=== PATIENT | female | born 1985 | race African-American/Black ===

== ENCOUNTER 2024-12-30 08:52 | Inpatient (IN) | payer MEDICARE, MEDICAID, SELFPAY ==
--- OUTSIDE RECORDS SUMMARY | 2024-01-18 05:00 | XMS_ITS ---
Author Organization [facility] Address [address] [place] [address] [phone] Care Team Providers Care Carpenter Supervisor Name Role Phone Migration, Provider Unavailable Unavailable REASON FOR VISIT EMR-[facility] [place] Encounters Encounter Location Date Provider Diagnosis [facility] [address] [place] [address] [phone] 01/18/2024 Provider Migration Plan Of Treatment No Information Progress Notes * DAVI OROZCOHARRISONDOB: [birth year] (39 yo F)Acc No.[id number]:01/18/2024 Patient: HIMA CORTEZ :1985 A ge:38 Y S ex:Female Address:[address] [place] [address], [address] Subjective: * Chief Complaints: * E MR-Stone * Medical History: * Surgical History: * Hospitalization/Major Diagno stic Procedure: * Medications: Objective: * Vitals: * Physical Examination: Assessment: Plan: * Treatment: * Procedure Codes: * * Date:
[2024-12-30] VITALS (7 sets, daily range): BP systolic 154–184; BP diastolic 84–94; PULSE 67–98; RESP 12–20; TEMP 36.4–37; O2SAT 86–99; BMI 24.4; BMI 24.3
--- NOTE | 2024-12-30 | ECG_ITS ---
Test Reason : chest pain Blood Pressure : */* mmHG Vent. Rate : 68 BPM Atrial Rate : 68 BPM P-R Int : 208 ms QRS Dur : 86 ms QT Int : 480 ms P-R-T Axes : 16 -8 133 degrees QTcB Int : 510 ms Normal sinus rhythm ST & T wave abnormality, consider lateral ischemia Prolonged QT Abnormal ECG No previous ECGs available Referred By: Generic ED Physician Electronically Signed By: ROXANA RENTERIA MD
--- NOTE | ~2024-12-30 | XR_ITS ---
EXAMINATION: XR CHEST CLINICAL INFORMATION: sob/chest pain COMPARISON: None available. TECHNIQUE: Frontal view of the chest was obtained. FINDINGS: Moderate cardiomegaly. Mediastinal and hilar contours appear normal. The lungs are clear bilaterally. No pneumothorax or effusion. No focal osseous or soft tissue abnormality. There are surgical clips abutting the superior trachea. XR/XR chest 1V IMPRESSION: 1. Moderate cardiomegaly. 2. No active pulmonary disease. Electronically signed by: Faizan [facility] MD 12/30/2024 11:18 AM EDT
--- NOTE | 2024-12-30 09:46 | ED.GENADULT ---
HPI - General Adult General Chief complaint: General Medical Stated complaint: Needs dialysis Time Seen by Provider: 12/30/24 09:18 Source: patient Mode of arrival: ambulatory Limitations: no limitations History of Present Illness ED Provider: Roxi Alicea PA-C HPI narrative: 39-year-old female with history of end-stage renal disease due to eclampsia 11 years ago on HD T//Fri, history of multiple left upper extremity fistula revisions, history of pericardial effusion s/p drain, history of seizures, chronic hypoxic respiratory failure on 2.5 L nasal cannula, HTN, chronic pain on chronic opiates, who presents to the ER for evaluation of chest pain, shortness of breath and blacking out episodes that started overnight. she states she missed her dialysis on Friday due to left upper extremity pain. She did not think her fistula was going to work. She states that it infiltrated at her dialysis session on Friday. She reports pain in her central chest and shortness of Breath since overnight. She has been having episodes where she blacks out which are consistent with her seizures. She not take her Keppra today. She usually takes it after dialysis on dialysis days. She denies any fever or chills. Chest pain is constant and nonradiating in the parasternal region. she states she has had this pain several times before MD complaint: chest pain, miss dialysis Onset (ago): hour(s) Associated symptoms: chest pain, headaches, malaise, shortness of breath and weakness Treatments prior to arrival: none Related Data Home Medications ?Medication ?Instructions ?Recorded ?Confirmed carvedilol 25 mg tablet 25 mg PO BID 12/30/24 hydroxyzine HCl 10 mg tablet 10 - 20 mg PO anxiety 12/30/24 oxycodone 15 mg tablet PO 12/30/24 pantoprazole 40 mg tablet,delayed 40 mg PO DAILY@0630 12/30/24 release sildenafil (pulm.hypertension) 20 20 mg PO TID 12/30/24 mg tablet sodium zirconium cyclosilicate 10 10 g PO 3XW 12/30/24 gram oral powder packet (kelwa) valsartan 80 mg tablet 80 mg PO DAILY 12/30/24 Allergies Allergy/AdvReac Type Severity Reaction Status Date / Time ANNA Inhibitors Allergy Unknown Verified 12/30/24 09:10 adhesive tape Allergy Unknown Verified 12/30/24 09:10 amlodipine Allergy Unknown Verified 12/30/24 09:10 angiotensin II acetate, human Allergy Itching Verified 12/30/24 09:10 Beta-Blockers Allergy Itching Verified 12/30/24 09:10 (Beta-Adrenergic Bloc cinacalcet (From Sensipar) Allergy Unknown Verified 12/30/24 09:10 clonidine Allergy Anaphylaxis Verified 12/30/24 09:10 doxazosin Allergy Anaphylaxis Verified 12/30/24 09:10 epoetin michael-epbx (From Allergy Unknown Verified 12/30/24 09:10 Retacrit) epoetin beta Allergy Unknown Verified 12/30/24 09:10 furosemide Allergy Unknown Verified 12/30/24 09:10 gabapentin Allergy Anaphylaxis Verified 12/30/24 09:10 heparin Allergy Unknown Verified 12/30/24 09:10 hydralazine Allergy Anaphylaxis Verified 12/30/24 09:10 hydroxyzine Allergy Unknown Verified 12/30/24 09:10 ibuprofen (From Motrin) Allergy Unknown Verified 12/30/24 09:10 isosorbide Allergy Unknown Verified 12/30/24 09:10 labetalol Allergy Eye Verified 12/30/24 09:10 Swelling latex Allergy Itching Verified 12/30/24 09:10 levofloxacin Allergy Itching Verified 12/30/24 09:10 lisinopril Allergy Itching Verified 12/30/24 09:10 losartan Allergy Unknown Verified 12/30/24 09:10 methocarbamol Allergy Unknown Verified 12/30/24 09:10 metoprolol Allergy Unknown Verified 12/30/24 09:10 Penicillins Allergy Hives Verified 12/30/24 09:10 prednisone Allergy Unknown Verified 12/30/24 09:10 spironolactone Allergy Itching Verified 12/30/24 09:10 tramadol Allergy Unknown Verified 12/30/24 09:10 Review of Systems Review of Systems: Yes all other systems are reviewed and are negative PMFSH Social History Social History Smoked in Last 30 Days: No Use of substances other than those prescribed or required for medical reasons: No Advance Directives: No Advance Directives Information Provided: Yes Do you have a plan to hurt others: No Plan Patient : No Physical Exam ED Exam Exam: Appearance: Alert. Oriented X3. No acute distress. Head: normocephalic, atraumatic. Eyes: Pupils equal, round and reactive to light. ENT: Pharynx normal. No tonsillar swelling or exudate. Neck: Normal inspection. Neck supple. CVS: Normal heart rate and rhythm. Pulses normal. Respiratory: No respiratory distress. Breath sounds diminished at the bases bilaterally Abdomen: Soft and nontender. +BS x4 Skin: Skin warm and dry. Normal skin color. Normal skin turgor. No rashes. Extremities: No lower extremity edema. No joint swelling. left upper extremity with large fistula involving both upper and lower arm, palpable thrill in the proximal upper arm Neuro/psych: Oriented X 3. No motor deficit. No sensory deficit. CN II-XII intact. Normal speech and cognition. Vital Signs: Vital Signs - 24 hr 12/30/24 09:09 12/30/24 09:15 12/30/24 10:13 Temperature 97.6 F 97.6 F Pulse Rate 67 70 Respiratory Rate 20 12 Blood Pressure 171/94 H 154/88 H Pulse Oximetry 86 L 98 99 Oxygen Delivery Method Room Air Nasal Cannula Nasal Cannula Oxygen Flow Rate 2.5 3 12/30/24 10:47 12/30/24 12:40 Temperature 98.6 F Pulse Rate 68 Respiratory Rate 18 15 Blood Pressure 178/89 H Pulse Oximetry 98 Oxygen Delivery Method Nasal Cannula Oxygen Flow Rate 3 BMI result Body Mass Index 24.4 Course Reevaluation(s) Reevaluation #1: Evaluated patient at the bedside and she was found to be laughing uncontrollably with twitch around the left eye, she was not responding to her name, she was staring into space. Her mother was on the phone on speaker in saying this is a presentation she can have with her seizures. She did not take her Keppra today, she usually takes it after dialysis. This episode lasted approximately 60 seconds and then afterward patient was confused and talking about printers, Nonsensical speech. She is hemodynamically stable. IV Keppra ordered. Seizure precautions in place. Time: 10:46 Medications Administered Generic Name Dose Route Start Last Admin Trade Name Freq PRN Reason Stop Dose Admin Calcium Gluconate 2 gm in 100 mls @ 50 mls/hr 12/30/24 12:21 12/30/24 12:26 Calcium Gluconate IV 12/30/24 14:20 50 mls/hr ONCE ONE Administration Discontinued Medications Generic Name Dose Route Start Last Admin Trade Name Freq PRN Reason Stop Dose Admin Dextrose 25 gm 12/30/24 12:21 12/30/24 12:38 Dextrose 50 % 25 Gm/50 Ml Syringe IVPUSH 12/30/24 12:22 25 gm ONCE ONE Administration Hydromorphone HCl 1 mg 12/30/24 10:34 12/30/24 10:47 Hydromorphone Hcl 1 Mg/Ml Syringe IVPUSH 12/30/24 10:35 1 mg ONCE ONE Administration Protocol Hydromorphone HCl 1 mg 12/30/24 11:17 12/30/24 12:28 Hydromorphone Hcl 1 Mg/Ml Syringe IVPUSH 12/30/24 11:18 Not Given ONCE ONE Protocol Hydromorphone HCl 1 mg 12/30/24 12:21 12/30/24 12:27 Hydromorphone Hcl 1 Mg/Ml Syringe IVPUSH 12/30/24 12:22 1 mg ONCE ONE Administration Protocol Levetiracetam 500 mg in 100 mls @ 400 mls/hr 12/30/24 10:41 12/30/24 12:37 Keppra IV 12/30/24 10:55 Infused ONCE ONE Infusion Insulin Human Regular 5 unit 12/30/24 12:21 12/30/24 12:38 Insulin Regular, Human 100 Unit/Ml 10 Ml Vial IVPUSH 12/30/24 12:22 5 unit ONCE ONE Administration Levetiracetam 500 mg 12/30/24 11:49 12/30/24 11:55 Levetiracetam 500 Mg Tablet PO 12/30/24 11:50 500 mg ONCE ONE Administration Oxycodone HCl 15 mg 12/30/24 11:49 12/30/24 11:55 Oxycodone Hcl Immed Release 15 Mg Tablet PO 12/30/24 11:50 15 mg ONCE ONE Administration Procedures EJ/Peripheral Line Arm R: Time Out Performed: Yes Skin Cleansed in Sterile Fashion: Yes Size (gauge): 20 IV Secured and Dressing Applied: Yes Patient Tolerated Procedure: well and no complications Additional Comments: after multiple attempts Medical Decision Making Medical Decision Making MDM Narrative: 39-year-old female presents to the ER for evaluation after she has had shortness of breath, chest pain and blacking out episodes since last night. She missed dialysis on Friday. She is medically complex and has had recent hospitalizations at [facility] [place], [facility] for fistula revisions. Working on getting records now. She arrives to the ER hemodynamically stable. Her SpO2 was in the 80s on room air, she arrived on room air and was placed on her baseline 2.5 L nasal cannula with good effect. multiple attempts at IV access with difficulty. labs show acute hyperkalemia of 7.6 without any hemolysis. BUN is 107 and creatinine is 13.37. Troponin is reassuring at 16. There is no peaked T-waves or bradycardia on her EKG. IV was established and she was given 2 g of calcium, insulin, D50. Nephrology was consulted and is arranging dialysis today. Patient will be admitted to the hospital for further management Differential Diagnosis Differential Diagnoses: The differential diagnosis associated with the presentation includes acute hyperkalemia due to missed dialysis, seizures due to medication noncompliance, recurrent pericardial effusion, volume overload, hypertensive urgency Admission/Observation Consideration of admission/observation: Escalation of care including admission/observation considered Consult Healthcare Provider Management of the patient was discussed with: Hospitalist and Buffer Chrome Dr. Joe Childress Lab Data MDM Lab Attestation statement: I reviewed the patient's lab results. leukocytosis, anemia of chronic disease, baseline hemoglobin around 8 based on her last H&H. Acute hyperkalemia without hemolysis, elevated BUN and creatinine in the setting of end-stage renal disease missing dialysis 12/30/24 10:26 12/30/24 11:53 Labs: Lab Results 12/30/24 12/30/24 Range/Units 10:26 11:53 WBC 6.0 (4.8-10.8) X10*3/uL RBC 2.43 L (4.20-5.50) X10*6/uL Hgb 7.6 L (12.0-16.0) g/dl Hct 23.0 L (37.0-47.0) % MCV 94.7 (80.0-98.0) fL MCH 31.3 (27.0-33.0) pg MCHC 33.0 (31.0-35.0) g/dl RDW 15.2 (11.0-16.0) % Plt Count 119 L (160-400) X10*3/uL MPV 10.2 (9.4-12.3) fL Immature Gran % (Auto) 0.5 H (0.0-0.4) % Neut % (Auto) 78.2 H (45-73) % Lymph % (Auto) 8.8 L (20-40) % [place] % (Auto) 6.2 (2-11) % Eos % (Auto) 6.0 H (0-4) % Baso % (Auto) 0.3 (0-2) % Lymph # (Auto) 0.5 L (1.2-4.9) X10*3/uL [place] # (Auto) 0.4 (0.1-1.2) X10*3/uL Eos # (Auto) 0.4 (0.0-0.4) X10*3/uL Baso # (Auto) 0.0 (0.0-0.2) X10*3/uL Abs Immat Gran (auto) 0.03 (0.00-0.03) X10*3/uL Absolute Neuts (auto) 4.7 (2.0-8.3) x10*3/uL Absolute Nucleated RBC 0.000 (0.0-0.012) X10*3/uL Nucleated RBC % (auto) 0.0 (0.0-0.2) /100WBC Sodium 138 (135-145) mmol/L Potassium 7.6 H* (3.3-5.1) mmol/L Chloride 101 (96-108) mmol/L Carbon Dioxide 20 L (22-29) mmol/L Anion Gap 25 H (12-20) BUN 107 H (9-16) mg/dL Creatinine 13.37 H* (0.5-1.4) mg/dL Estim Creat Clear Calc 5.1 Estimated GFR 3 Random Glucose 102 (60-115) mg/dL Calcium 6.3 L (8.4-10.2) mg/dL Phosphorus 9.1 H (2.7-4.5) mg/dL Magnesium 2.5 (1.6-2.6) mg/dL Total Bilirubin 0.5 (0.0-1.0) mg/dL AST 28 (5-31) U/L ALT 28 (0-31) U/L Alkaline Phosphatase 129 H (39-117) U/L Troponin I High Sens 16.8 (<3.5-17.0) ng/L B-Natriuretic Peptide 3706 H (<100) pg/mL Total Protein 7.2 (6.5-8.0) g/dL Albumin 4.2 (3.5-5.0) g/dL Independent Interpretation I performed an independent interpretation of an: EKG and Plain X-Ray Interpretation: EKG with normal sinus rhythm, ventricular rate 68 beats per minute, Q-waves present in lead III, mild ST depression/ T-wave inversion in lead 1 only. No significantly peaked T-waves chest x-ray with cardiomegaly Radiology Impression Discussion of test interpretation with radiology: I have reviewed the radiologist's reading. Independent Historian Clinical information obtained from an independent historian. History obtained from or confirmed by: Parent External Record Review External record reviewed: Inpatient record, Outpatient record, Prior outpatient labs and Prior outpatient radiology Prescription Management I considered prescription management with: Pain Medication and Other ( calcium, D50, Lokelma) Chronic Conditions Patient?s care impacted by: Hypertension and Other ( ESRD, chronic pain) Social Determinants Patient?s care significantly limited by Social Determinants of Health including: Other Social Determinant of Health Critical Care Time Critical Care Time Critical Care Time: Yes Total Critical Care Time: 44 Attestation: I have personally provided critical care time exclusive of time spent on separately billable procedures. Time includes review of lab data, radiology results, discussion with consultants, and monitoring for potential decompensation. Intervention performed as documented. Discharge Plan Discharge Clinical Impression: ESRD (end stage renal disease) on dialysis, Acute hyperkalemia Patient Disposition: Admitted As Inpatient
--- NOTE | 2024-12-30 10:08 | MHC.EDTECH ---
delay on EKG do to EKG machine in use nurse aware
--- NOTE | 2024-12-30 10:22 | PC.NURSE ---
39 F comes to ED d/t missing dialysis on friday, [place] A+Ox4, very weak, stand and pivot ambulation wheelchair to bed. RR even and unlabored, on 3L NC d/t desat in triage in 80s on RA. Pt sts she uses 2.5L NC at baseline. CAMPUS DIRECTOR at bedside working on US line.
[2024-12-30 10:30] LABS: MANUAL DIFF FLAG NO
[2024-12-30 10:32] LABS: Hematocrit 23.0 % (37.0-47.0); Hemoglobin 7.6 g/dl (12.0-16.0); Imm Gran Abs Auto 0.03 X10*3/uL (0.00-0.03); Imm Gran Pct Auto 0.5 % (0.0-0.4); Lymphocytes Absolute Auto 0.5 X10*3/uL (1.2-4.9); Mean Corpuscular HGB Conc 33.0 g/dl (31.0-35.0); Mean Corpuscular Hemoglobin 31.3 pg (27.0-33.0); Mean Corpuscular Volume 94.7 fL (80.0-98.0); NRBC Abs Auto 0.000 X10*3/uL (0.0-0.012); NRBC Pct Auto 0.0 /100WBC (0.0-0.2); Platelet Count 119 X10*3/uL (160-400); Red Blood Count 2.43 X10*6/uL (4.20-5.50); White Blood Count 6.0 X10*3/uL (4.8-10.8)
[2024-12-30] MEDS: levETIRAcetam in NaCl (iso-os) 500 MG/100 ML PIGGYBACK 400 MG IV (10:47)
[2024-12-30 10:52] LABS: B Type Natriuretic Peptide 3706 pg/mL (<100)
[2024-12-30 10:55] LABS: Troponin-I High Sensitivity 16.8 ng/L (<3.5-17.0)
--- NOTE | 2024-12-30 11:29 | PC.NURSE ---
Addendum entered by Lianna Johnson RN 12/30/24 12:34: Patient did NOT recieve any IV Keppra, provider ordered PO, did not want IV Keppra restarted once IV access was established Original Note: Assumed care of this patient at 1100, patient's keppra not running, previous RN Froylan stated IV placement was difficult, provider and [employer] needed for access, IV found not to flush through or draw back, [employer] not available at this time, provider Natalia made aware, will assess patient for an new IV site, patient aware IV not working, additional nephro provider at bedside to speak w/ patient at this time.
--- NOTE | 2024-12-30 11:48 | PM.CNNEP ---
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 She presented today 12/30 to the ED with chest pain, shortness of breath, and blacking out episodes that started overnight. Pateint had a seizure this a.m., per ED provider she was confused earlier in postictal state but now improving. Nephrology consulted for management of ESRD on HD. patient reports last HD session was on Friday, 12/26. Missed Friday session, reports has swelling and pain in fistula so did not go but has improved since then. reports she is on transplant list, has been for a year or two at transplant center in [place]. She reports some shortness of breath. Reports ongoing pain in old fistula site in left lower extremity (currently has left upper extremity fistula being used for dialysis). Denies other symptoms at this time. Review of Systems Constitutional: Reports no additional constitutional complaints Cardiovascular: Denies chest pain, Denies leg edema, Denies lightheadedness and Reports dyspnea Respiratory: Reports dyspnea Gastrointestinal: Denies abdominal pain, Denies diarrhea, Denies nausea and Denies vomiting Genitourinary: Reports no additional female genitourinary complaints Skin/Breast: Denies rash Denies tremor(s) Comments: reported recent seizure activity ON LICENSE OF [facility] Social History Social History Patient Tobacco Use Status: Never used Tobacco Smoked in Last 30 Days: No Use of substances other than those prescribed or required for medical reasons: No Advance Directives: No Advance Directives Information Provided: Yes Do you have a plan to hurt others: No Plan Nutrition Risks: No Nutritional Risk Patient : No Meds Allergies Allergy/AdvReac Type Severity Reaction Status Date / Time ANNA Inhibitors Allergy Unknown Verified 12/30/24 09:10 adhesive tape Allergy Unknown Verified 12/30/24 09:10 amlodipine Allergy Unknown Verified 12/30/24 09:10 angiotensin II acetate, human Allergy Itching Verified 12/30/24 09:10 Beta-Blockers Allergy Itching Verified 12/30/24 09:10 (Beta-Adrenergic Bloc cinacalcet (From Sensipar) Allergy Unknown Verified 12/30/24 09:10 clonidine Allergy Anaphylaxis Verified 12/30/24 09:10 doxazosin Allergy Anaphylaxis Verified 12/30/24 09:10 epoetin michael-epbx (From Allergy Unknown Verified 12/30/24 09:10 Retacrit) epoetin beta Allergy Unknown Verified 12/30/24 09:10 furosemide Allergy Unknown Verified 12/30/24 09:10 gabapentin Allergy Anaphylaxis Verified 12/30/24 09:10 heparin Allergy Unknown Verified 12/30/24 09:10 hydralazine Allergy Anaphylaxis Verified 12/30/24 09:10 hydroxyzine Allergy Unknown Verified 12/30/24 09:10 ibuprofen (From Motrin) Allergy Unknown Verified 12/30/24 09:10 isosorbide Allergy Unknown Verified 12/30/24 09:10 labetalol Allergy Eye Verified 12/30/24 09:10 Swelling latex Allergy Itching Verified 12/30/24 09:10 levofloxacin Allergy Itching Verified 12/30/24 09:10 lisinopril Allergy Itching Verified 12/30/24 09:10 losartan Allergy Unknown Verified 12/30/24 09:10 methocarbamol Allergy Unknown Verified 12/30/24 09:10 metoprolol Allergy Unknown Verified 12/30/24 09:10 Penicillins Allergy Hives Verified 12/30/24 09:10 prednisone Allergy Unknown Verified 12/30/24 09:10 spironolactone Allergy Itching Verified 12/30/24 09:10 tramadol Allergy Unknown Verified 12/30/24 09:10 Home Medications ?Medication ?Instructions ?Recorded ?Confirmed ?Last Taken ?Type carvedilol 25 mg tablet 25 mg PO BID 12/30/24 Unknown History hydroxyzine HCl 10 mg tablet 10 - 20 mg PO anxiety 12/30/24 Unknown History oxycodone 15 mg tablet PO 12/30/24 Unknown History pantoprazole 40 mg tablet,delayed 40 mg PO DAILY@0630 12/30/24 Unknown History release sildenafil (pulm.hypertension) 20 20 mg PO TID 12/30/24 Unknown History mg tablet sodium zirconium cyclosilicate 10 10 g PO 3XW 12/30/24 Unknown History gram oral powder packet (Lokelma) valsartan 80 mg tablet 80 mg PO DAILY 12/30/24 Unknown History Physical Exam Vital Signs: Last Vital Signs Temp 97.6 F 12/30/24 10:13 Pulse 70 12/30/24 10:13 Resp 18 12/30/24 10:47 BP 154/88 H 12/30/24 10:13 Pulse Ox 99 12/30/24 10:13 O2 Del Method Nasal Cannula 12/30/24 10:13 O2 Flow Rate 3 12/30/24 10:13 BMI result Body Mass Index 24.4 Const General: no acute distress, alert and awake Resp Effort & Inspection: normal respiratory effort and able to speak in complete sentences Auscultation: clear to auscultation bilaterally Cardio Rate: regular rate Rhythm: abnormal rhythm Heart sounds: S1 normal heart sound present and S2 normal heart sound present GI Palpation (GI): Soft to palpation and nontender Skin Rashes: no rashes Extrem General: No edema Results Lab Results 12/30/24 10:26 12/30/24 11:53 Lab results: Hematology 12/30/24 10:26 WBC 6.0 Hgb 7.6 L Plt Count 119 L Assessment and Plan (1) ESRD (end stage renal disease) on dialysis: Status: Acute Plan ESRD on HD TTS, last dialyzed 12/26, missed x1 session. LUE fistula- +thrill, bruit. consult placed to vascular for malfunctioning fistula in lower arm. will remove fluid to dry weight today, patient states dry weight is 68kg H&H is 7.6 & 23- pt has listed allergy to retacrit, will hold off on epo for now. potassium 7.6- insulin &d50, calcium gluconate administered per ED provider. Will start dialysis with 3K bath today. Phosphorous 9.1- will see what post HD phosphorous is tomorrow as pt does not appear to be on outpatient binders. Recommend low potassium, low sodium, low phosphorous diet. Fluid restriction 1.5L/24hours daily electrolyte and renal function studies regualr blood pressure checks, daily weights, I&O monitoring Discussed with Dr Diaz. Procedures Date of Service Date of Service: 12/30/24
--- OUTSIDE RECORDS SUMMARY | 2024-12-30 11:52 | XMS_ITS ---
Author Name [facility] Organization Unknown Results Test Name/Text Value Interpretation Date Range Source Phosphate SerPl-mCnc 5.1 mg/dL Above high normal 5 2.2 - 4.5 [facility] Magnesium SerPl-mCnc 2.0 mg/dL 5 1.7 - 2.4 [facility] BUN/Creat SerPl 4.4 Below low normal 10/24/19 2 5 8 - 23 [facility] Chloride SerPl-sCnc 97.0 mmol/L Below low normal 10/01 5 98 - 107 [facility] CREATININE [place] 5 [facility] Sodium SerPl-sCnc 135.0 mmol/L Below low normal 5 136 - 144 [facility] Potassium SerPl-sCnc 5.1 mmol/L 5 3.3 - 5.3 [facility] BUN SerPl-mCnc 33.0 mg/dL Above high normal 10/24/19 2 5 6 - 20 [facility] HCO3 SerPl-sCnc 24.0 mmol/L 5 20 - 30 [facility] Glucose SerPl-mCnc 125.0 mg/dL Above high normal 10/01 5 70 - 100 [facility] GFR/BSA.pred SerPlBld [id number] 7.0 mL/min/1.73m2 Below low normal 5 - [facility] Calcium SerPl-mCnc 7.8 mg/dL Below low normal 10/23 5 8.8 - 10.2 [facility] Anion Gap3 SerPl-sCnc 14.0 5 7 - 17 [facility] Creat SerPl-mCnc 7.57 mg/dL Above high normal 5 0.4 - 1.3 [facility] nRBC/100 WBC Bld Auto-Rto 0.0 % 5 0 - 1 [facility] Neutrophils/leuk NFr Bld Auto 73.5 % Above high normal 5 39 - 72 [facility] MCH RBC Qn Auto 31.4 pg 5 27 - 33 [facility] MCHC RBC Auto-mCnc 31.8 g/dL 5 31 - 36 [facility] Neutrophils # Bld Auto 4.03 x 1000/uL 5 2 - 7.6 [facility] RDW RBC Auto-Rto 16.9 % Above high normal 5 11 - 15 [facility] Monocytes # Bld Auto 0.37 x 1000/uL 5 0 - 1 [facility] Monocytes/leuk NFr Bld Auto 6.8 % 5 4 - 12 [facility] Eosinophil # Bld Auto 0.47 x 1000/uL 5 0 - 1 [facility] Lymphocytes/leuk NFr Bld Auto 10.0 % Below low normal 5 17 - 50 [facility] WBC # Bld Auto 5.5 x1000/uL 5 4 - 11 [facility] Basophils # Bld Auto 0.05 x 1000/uL 5 0 - 1 [facility] Basophils/leuk NFr Bld Auto 0.9 % 5 0 - 1.4 [facility] nRBC # Bld Auto 0.0 x 1000/uL 5 0 - 1 [facility] RBC # Bld Auto 2.23 M/uL Below low normal 5 4 - 6 [facility] Hgb Bld-mCnc 7.0 g/dL Below low normal 5 11.7 - 15.5 [facility] Imm Granulocytes/leuk NFr Bld Auto 0.2 % 5 0 - 1 [facility] Hct VFr Bld Auto 22.0 % Below low normal 02 5 35 - 45 [facility] Eosinophil/leuk NFr Bld Auto 8.6 % Above high normal 5 0 - 5 [facility] PMV Bld Auto 10.3 fL 5 8 - 12 [facility] Imm Granulocytes # Bld Auto 0.01 x 1000/uL 5 0 - 0.3 [facility] Platelet # Bld Auto 142.0 x1000/uL Below low normal 5 150 - 420 [facility] MCV RBC Auto 98.7 fL 5 80 - 100 [facility] Lymphocytes # Bld Auto 0.55 x 1000/uL Below low normal 5 0.6 - 3.7 [facility] Creat SerPl-mCnc 5.39 mg/dL Above high normal 5 0.4 - 1.3 [facility] Sodium SerPl-sCnc 134.0 mmol/L Below low normal 5 136 - 144 [facility] BUN/Creat SerPl 3.3 Below low normal 10/23/19 2 5 8 - 23 [facility] Potassium SerPl-sCnc 4.5 mmol/L 5 3.3 - 5.3 [facility] Glucose SerPl-mCnc 110.0 mg/dL Above high normal 10/01 5 70 - 100 [facility] HCO3 SerPl-sCnc 26.0 mmol/L 5 20 - 30 [facility] Calcium SerPl-mCnc 7.9 mg/dL Below low normal 10/22 5 8.8 - 10.2 [facility] Anion Gap3 SerPl-sCnc 13.0 5 7 - 17 [facility] Chloride SerPl-sCnc 95.0 mmol/L Below low normal 10/01 5 98 - 107 [facility] BUN SerPl-mCnc 18.0 mg/dL 5 6 - 20 [facility] CREATININE [place] 5 [facility] GFR/BSA.pred SerPlBld [id number] 10.0 mL/min/1.73m2 Below low normal 5 - [facility] Magnesium SerPl-mCnc 2.0 mg/dL 5 1.7 - 2.4 [facility] Phosphate SerPl-mCnc 3.9 mg/dL 5 2.2 - 4.5 [facility] nRBC # Bld Auto 0.0 x 1000/uL 5 0 - 1 [facility] nRBC/100 WBC Bld Auto-Rto 0.0 % 5 0 - 1 [facility] Imm Granulocytes # Bld Auto 0.02 x 1000/uL 5 0 - 0.3 [facility] Lymphocytes # Bld Auto 0.68 x 1000/uL 5 0.6 - 3.7 [facility] Imm Granulocytes/leuk NFr Bld Auto 0.4 % 5 0 - 1 [facility] Eosinophil/leuk NFr Bld Auto 9.6 % Above high normal 5 0 - 5 [facility] WBC # Bld Auto 5.1 x1000/uL 5 4 - 11 [facility] Hct VFr Bld Auto 22.2 % Below low normal 02 5 35 - 45 [facility] Basophils # Bld Auto 0.04 x 1000/uL 5 0 - 1 [facility] Monocytes # Bld Auto 0.38 x 1000/uL 5 0 - 1 [facility] RDW RBC Auto-Rto 16.5 % Above high normal 5 11 - 15 [facility] PMV Bld Auto 10.4 fL 5 8 - 12 [facility] Lymphocytes/leuk NFr Bld Auto 13.4 % Below low normal 5 17 - 50 [facility] Eosinophil # Bld Auto 0.49 x 1000/uL 5 0 - 1 [facility] Hgb Bld-mCnc 7.1 g/dL Below low normal 5 11.7 - 15.5 [facility] MCHC RBC Auto-mCnc 32.0 g/dL 5 31 - 36 [facility] Platelet # Bld Auto 129.0 x1000/uL Below low normal 5 150 - 420 [facility] Basophils/leuk NFr Bld Auto 0.8 % 5 0 - 1.4 [facility] MCV RBC Auto 100.5 fL Above high normal 5 80 - 100 [facility] RBC # Bld Auto 2.21 M/uL Below low normal 5 4 - 6 [facility] Monocytes/leuk NFr Bld Auto 7.5 % 5 4 - 12 [facility] Neutrophils/leuk NFr Bld Auto 68.3 % 5 39 - 72 [facility] MCH RBC Qn Auto 32.1 pg 5 27 - 33 [facility] Neutrophils # Bld Auto 3.47 x 1000/uL 5 2 - 7.6 [facility] MCHC RBC Auto-mCnc 32.3 g/dL 5 31 - 36 [facility] Monocytes # Bld Auto 0.38 x 1000/uL 5 0 - 1 [facility] MCH RBC Qn Auto 32.0 pg 5 27 - 33 [facility] PMV Bld Auto 10.5 fL 5 8 - 12 [facility] nRBC/100 WBC Bld Auto-Rto 0.0 % 5 0 - 1 [facility] MCV RBC Auto 99.1 fL 5 80 - 100 [facility] nRBC # Bld Auto 0.0 x 1000/uL 5 0 - 1 [facility] Basophils # Bld Auto 0.05 x 1000/uL 5 0 - 1 [facility] Lymphocytes/leuk NFr Bld Auto 11.1 % Below low normal 5 17 - 50 [facility] Platelet # Bld Auto 140.0 x1000/uL Below low normal 5 150 - 420 [facility] RBC # Bld Auto 2.22 M/uL Below low normal 5 4 - 6 [facility] Lymphocytes # Bld Auto 0.64 x 1000/uL 5 0.6 - 3.7 [facility] Monocytes/leuk NFr Bld Auto 6.6 % 5 4 - 12 [facility] Hct VFr Bld Auto 22.0 % Below low normal 02 5 35 - 45 [facility] Eosinophil/leuk NFr Bld Auto 9.2 % Above high normal 5 0 - 5 [facility] RDW RBC Auto-Rto 16.8 % Above high normal 5 11 - 15 [facility] Neutrophils # Bld Auto 4.16 x 1000/uL 5 2 - 7.6 [facility] WBC # Bld Auto 5.8 x1000/uL 5 4 - 11 [facility] Basophils/leuk NFr Bld Auto 0.9 % 5 0 - 1.4 [facility] Eosinophil # Bld Auto 0.53 x 1000/uL 5 0 - 1 [facility] Imm Granulocytes # Bld Auto 0.02 x 1000/uL 5 0 - 0.3 [facility] Hgb Bld-mCnc 7.1 g/dL Below low normal 5 11.7 - 15.5 [facility] Imm Granulocytes/leuk NFr Bld Auto 0.3 % 5 0 - 1 [facility] Neutrophils/leuk NFr Bld Auto 71.9 % 5 39 - 72 [facility] B[facility] CREATININE [place] 5 [facility] Glucose SerPl-mCnc 143.0 mg/dL Above high normal 10/01 5 70 - 100 [facility] GFR/BSA.pred SerPlBld [id number]-[id number]-[id number] 6.0 mL/min/1.73m2 Below low normal 5 - [facility] Sodium SerPl-sCnc 135.0 mmol/L Below low normal 5 136 - 144 [facility] Anion Gap3 SerPl-sCnc 17.0 5 7 - 17 [facility] BUN/Creat SerPl 4.3 Below low normal 10/22/19 2 5 8 - 23 [facility] Creat SerPl-mCnc 8.15 mg/dL Above high normal 5 0.4 - 1.3 [facility] Potassium SerPl-sCnc 4.4 mmol/L 5 3.3 - 5.3 [facility] HCO3 SerPl-sCnc 24.0 mmol/L 5 20 - 30 [facility] Calcium SerPl-mCnc 8.0 mg/dL Below low normal 10/21 5 8.8 - 10.2 [facility] Chloride SerPl-sCnc 94.0 mmol/L Below low normal 10/01 5 98 - 107 [facility] BUN SerPl-mCnc 35.0 mg/dL Above high normal 10/22/19 2 5 6 - 20 [facility] Phosphate SerPl-mCnc 4.7 mg/dL Above high normal 5 2.2 - 4.5 [facility] Magnesium SerPl-mCnc 2.1 mg/dL 5 1.7 - 2.4 [facility] Magnesium SerPl-mCnc 2.1 mg/dL 5 1.7 - 2.4 [facility] HCO3 SerPl-sCnc 24.0 mmol/L 5 20 - 30 [facility] Creat SerPl-mCnc 6.11 mg/dL Above high normal 5 0.4 - 1.3 [facility] Chloride SerPl-sCnc 94.0 mmol/L Below low normal 10/01 5 98 - 107 [facility] BUN/Creat SerPl 4.1 Below low normal 10/21/19 2 5 8 - 23 [facility] Anion Gap3 SerPl-sCnc 15.0 5 7 - 17 [facility] Glucose SerPl-mCnc 91.0 mg/dL 5 70 - 100 [facility] Potassium SerPl-sCnc 4.6 mmol/L 5 3.3 - 5.3 [facility] CREATININE [place] 5 [facility] GFR/BSA.pred SerPlBld EWU-[id number]-KfLAng 8.0 mL/min/1.73m2 Below low normal 5 - [facility] BUN SerPl-mCnc 25.0 mg/dL Above high normal 10/21/19 2 5 6 - 20 [facility] Calcium SerPl-mCnc 8.0 mg/dL Below low normal 10/20 5 8.8 - 10.2 [facility] Sodium SerPl-sCnc 133.0 mmol/L Below low normal 5 136 - 144 [facility] Phosphate SerPl-mCnc 4.2 mg/dL 5 2.2 - 4.5 [facility] PMV Bld Auto 10.4 fL 5 8 - 12 [facility] Lymphocytes # Bld Auto 0.89 x 1000/uL 5 0.6 - 3.7 [facility] nRBC/100 WBC Bld Auto-Rto 0.0 % 5 0 - 1 [facility] Platelet # Bld Auto 152.0 x1000/uL 5 150 - 420 [facility] MCH RBC Qn Auto 31.0 pg 5 27 - 33 [facility] MCV RBC Auto 98.7 fL 5 80 - 100 [facility] Eosinophil/leuk NFr Bld Auto 9.1 % Above high normal 5 0 - 5 [facility] Hct VFr Bld Auto 22.6 % Below low normal 02 5 35 - 45 [facility] Basophils # Bld Auto 0.06 x 1000/uL 5 0 - 1 [facility] Eosinophil # Bld Auto 0.59 x 1000/uL 5 0 - 1 [facility] Monocytes # Bld Auto 0.46 x 1000/uL 5 0 - 1 [facility] Basophils/leuk NFr Bld Auto 0.9 % 5 0 - 1.4 [facility] Neutrophils # Bld Auto 4.42 x 1000/uL 5 2 - 7.6 [facility] RBC # Bld Auto 2.29 M/uL Below low normal 5 4 - 6 [facility] nRBC # Bld Auto 0.0 x 1000/uL 5 0 - 1 [facility] MCHC RBC Auto-mCnc 31.4 g/dL 5 31 - 36 [facility] Lymphocytes/leuk NFr Bld Auto 13.8 % Below low normal 5 17 - 50 [facility] RDW RBC Auto-Rto 15.9 % Above high normal 5 11 - 15 [facility] Neutrophils/leuk NFr Bld Auto 68.6 % 5 39 - 72 [facility] Hgb Bld-mCnc 7.1 g/dL Below low normal 5 11.7 - 15.5 [facility] Imm Granulocytes/leuk NFr Bld Auto 0.5 % 5 0 - 1 [facility] WBC # Bld Auto 6.5 x1000/uL 5 4 - 11 [facility] Monocytes/leuk NFr Bld Auto 7.1 % 5 4 - 12 [facility] Imm Granulocytes # Bld Auto 0.03 x 1000/uL 5 0 - 0.3 [facility] Magnesium SerPl-mCnc 2.1 mg/dL 5 1.7 - 2.4 [facility] Calcium SerPl-mCnc 8.1 mg/dL Below low normal 10/19 5 8.8 - 10.2 [facility] Chloride SerPl-sCnc 95.0 mmol/L Below low normal 10/01 5 98 - 107 [facility] Glucose SerPl-mCnc 87.0 mg/dL 5 70 - 100 [facility] Anion Gap3 SerPl-sCnc 17.0 5 7 - 17 [facility] Potassium SerPl-sCnc 4.6 mmol/L 5 3.3 - 5.3 [facility] HCO3 SerPl-sCnc 22.0 mmol/L 5 20 - 30 [facility] CREATININE [place] 5 [facility] Creat SerPl-mCnc 7.8 mg/dL Above high normal 5 0.4 - 1.3 [facility] BUN/Creat SerPl 4.4 Below low normal 10/20/19 2 5 8 - 23 [facility] GFR/BSA.pred SerPlBld PLF-AFT-CiFFlf 6.0 mL/min/1.73m2 Below low normal 5 - [facility] BUN SerPl-mCnc 34.0 mg/dL Above high normal 10/20/19 2 5 6 - 20 [facility] Sodium SerPl-sCnc 134.0 mmol/L Below low normal 5 136 - 144 [facility] Phosphate SerPl-mCnc 5.1 mg/dL Above high normal 5 2.2 - 4.5 [facility] PMV Bld Auto 10.5 fL 5 8 - 12 [facility] Eosinophil/leuk NFr Bld Auto 8.7 % Above high normal 5 0 - 5 [facility] nRBC/100 WBC Bld Auto-Rto 0.0 % 5 0 - 1 [facility] Hct VFr Bld Auto 23.1 % Below low normal 02 5 35 - 45 [facility] Monocytes # Bld Auto 0.39 x 1000/uL 5 0 - 1 [facility] Hgb Bld-mCnc 7.1 g/dL Below low normal 5 11.7 - 15.5 [facility] Lymphocytes # Bld Auto 0.74 x 1000/uL 5 0.6 - 3.7 [facility] Neutrophils # Bld Auto 4.88 x 1000/uL 5 2 - 7.6 [facility] RBC # Bld Auto 2.34 M/uL Below low normal 5 4 - 6 [facility] Eosinophil # Bld Auto 0.58 x 1000/uL 5 0 - 1 [facility] MCHC RBC Auto-mCnc 30.7 g/dL Below low normal 10/19 5 31 - 36 [facility] Platelet # Bld Auto 143.0 x1000/uL Below low normal 5 150 - 420 [facility] Monocytes/leuk NFr Bld Auto 5.8 % 5 4 - 12 [facility] Neutrophils/leuk NFr Bld Auto 73.2 % Above high normal 5 39 - 72 [facility] Imm Granulocytes/leuk NFr Bld Auto 0.3 % 5 0 - 1 [facility] WBC # Bld Auto 6.7 x1000/uL 5 4 - 11 [facility] Basophils # Bld Auto 0.06 x 1000/uL 5 0 - 1 [facility] MCH RBC Qn Auto 30.3 pg 5 27 - 33 [facility] Imm Granulocytes # Bld Auto 0.02 x 1000/uL 5 0 - 0.3 [facility] MCV RBC Auto 98.7 fL 5 80 - 100 [facility] Basophils/leuk NFr Bld Auto 0.9 % 5 0 - 1.4 [facility] Lymphocytes/leuk NFr Bld Auto 11.1 % Below low normal 5 17 - 50 [facility] RDW RBC Auto-Rto 15.9 % Above high normal 5 11 - 15 [facility] nRBC # Bld Auto 0.0 x 1000/uL 5 0 - 1 [facility] ANTIBODY SCREEN NEG 10/19/19 2 5 [facility] ABO GROUPING O 5 [facility] SPECIMEN EXPIRATION DATE AND TIME 10/21/2024 23:59 5 [facility] RH TYPE POS 5 [facility] CK SerPl-cCnc 117.0 U/L 5 26 - 192 [facility] Magnesium SerPl-mCnc 2.4 mg/dL 5 1.7 - 2.4 [facility] Phosphate SerPl-mCnc 6.3 mg/dL Above high normal 5 2.2 - 4.5 [facility] BUN/Creat SerPl 5.8 Below low normal 10/19/19 2 5 8 - 23 [facility] Creat SerPl-mCnc 11.19 mg/dL Above high normal 5 0.4 - 1.3 [facility] GFR/BSA.pred SerPlBld BTX-PHW-OxOPik 4.0 mL/min/1.73m2 Below low normal 5 - [facility] Sodium SerPl-sCnc 137.0 mmol/L 5 136 - 144 [facility] Anion Gap3 SerPl-sCnc 22.0 Above high normal 5 7 - 17 [facility] BUN SerPl-mCnc 65.0 mg/dL Above high normal 10/19/19 2 5 6 - 20 [facility] B[facility] CREATININE [place] 5 [facility] Calcium SerPl-mCnc 7.0 mg/dL Below low normal 10/18 5 8.8 - 10.2 [facility] Potassium SerPl-sCnc 5.5 mmol/L Above high normal 5 3.3 - 5.3 [facility] Glucose SerPl-mCnc 129.0 mg/dL Above high normal 09/30 5 70 - 100 [facility] Chloride SerPl-sCnc 95.0 mmol/L Below low normal 09/30 5 98 - 107 [facility] HCO3 SerPl-sCnc 20.0 mmol/L 5 20 - 30 [facility] MCH RBC Qn Auto 30.9 pg 5 27 - 33 [facility] MCHC RBC Auto-mCnc 31.8 g/dL 5 31 - 36 [facility] Neutrophils # Bld Auto 7.11 x 1000/uL 5 2 - 7.6 [facility] Eosinophil # Bld Auto 0.53 x 1000/uL 5 0 - 1 [facility] Basophils/leuk NFr Bld Auto 0.8 % 5 0 - 1.4 [facility] Monocytes/leuk NFr Bld Auto 4.7 % 5 4 - 12 [facility] Platelet # Bld Auto 151.0 x1000/uL 5 150 - 420 [facility] RBC # Bld Auto 2.23 M/uL Below low normal 5 4 - 6 [facility] RDW RBC Auto-Rto 15.3 % Above high normal 5 11 - 15 [facility] Lymphocytes # Bld Auto 0.8 x 1000/uL 5 0.6 - 3.7 [facility] Lymphocytes/leuk NFr Bld Auto 8.9 % Below low normal 5 17 - 50 [facility] Imm Granulocytes/leuk NFr Bld Auto 0.2 % 5 0 - 1 [facility] nRBC/100 WBC Bld Auto-Rto 0.0 % 5 0 - 1 [facility] PMV Bld Auto 10.3 fL 5 8 - 12 [facility] Neutrophils/leuk NFr Bld Auto 79.5 % Above high normal 5 39 - 72 [facility] Hct VFr Bld Auto 21.7 % Below low normal 02 5 35 - 45 [facility] Monocytes # Bld Auto 0.42 x 1000/uL 5 0 - 1 [facility] Eosinophil/leuk NFr Bld Auto 5.9 % Above high normal 5 0 - 5 [facility] Basophils # Bld Auto 0.07 x 1000/uL 5 0 - 1 [facility] nRBC # Bld Auto 0.0 x 1000/uL 5 0 - 1 [facility] Imm Granulocytes # Bld Auto 0.02 x 1000/uL 5 0 - 0.3 [facility] Hgb Bld-mCnc 6.9 g/dL Below low normal 5 11.7 - 15.5 [facility] WBC # Bld Auto 9.0 x1000/uL 5 4 - 11 [facility] MCV RBC Auto 97.3 fL 5 80 - 100 [facility] HBV surface Ab SerPl IA-aCnc 51.38 mIU/mL Normal 5 - [facility] surface Ag SerPl Ql IA Negative Normal 5 - [facility] core IgG+IgM SerPl Ql IA Negative Normal 5 - [facility] Sodium SerPl-sCnc 138.0 mmol/L Normal 5 136 - 144 [facility] Calcium SerPl-mCnc 7.0 mg/dL Below low normal 10/01 5 8.8 - 10.2 [facility] Anion Gap3 SerPl-sCnc 14.0 Normal 5 7 - 17 [facility] CREATININE DEL[place] Normal 5 [facility] Glucose SerPl-mCnc 78.0 mg/dL Normal 5 70 - 100 [facility] BUN SerPl-mCnc 52.0 mg/dL Above high normal 10/02/19 2 5 6 - 20 [facility] Creat SerPl-mCnc 8.73 mg/dL Above high normal 5 0.4 - 1.3 [facility] HCO3 SerPl-sCnc 25.0 mmol/L Normal 5 20 - 30 [facility] GFR/BSA.pred SerPlBld LVK-VSN-JaBUle 5.0 mL/min/1.73m2 Below low normal 5 - [facility] Potassium SerPl-sCnc 6.0 mmol/L Critically high 5 3.3 - 5.3 [facility] Chloride SerPl-sCnc 99.0 mmol/L Normal 10/02/19 2 5 98 - 107 [facility] BUN/Creat SerPl 6.0 Below low normal 10/02/19 2 5 8 - 23 [facility] Phosphate SerPl-mCnc 5.5 mg/dL Above high normal 5 2.2 - 4.5 [facility] Magnesium SerPl-mCnc 1.9 mg/dL Normal 5 1.7 - 2.4 [facility] Hgb Bld-mCnc 5.8 g/dL Critically low 5 11.7 - 15.5 [facility] Imm Granulocytes/leuk NFr Bld Auto 0.4 % Normal 5 0 - 1 [facility] Monocytes # Bld Auto 0.42 x 1000/uL Normal 5 0 - 1 [facility] Neutrophils # Bld Auto 4.05 x 1000/uL Normal 5 2 - 7.6 [facility] MCV RBC Auto 99.5 fL Normal 5 80 - 100 [facility] MCH RBC Qn Auto 29.4 pg Normal 5 27 - 33 [facility] nRBC/100 WBC Bld Auto-Rto 0.0 % Normal 5 0 - 1 [facility] MCHC RBC Auto-mCnc 29.6 g/dL Below low normal 10/01 5 31 - 36 [facility] Eosinophil/leuk NFr Bld Auto 3.6 % Normal 5 0 - 5 [facility] Imm Granulocytes # Bld Auto 0.02 x 1000/uL Normal 5 0 - 0.3 [facility] Lymphocytes/leuk NFr Bld Auto 10.6 % Below low normal 5 17 - 50 [facility] Monocytes/leuk NFr Bld Auto 8.0 % Normal 5 4 - 12 [facility] PMV Bld Auto 10.4 fL Normal 5 8 - 12 [facility] RBC # Bld Auto 1.97 M/uL Below low normal 5 4 - 6 [facility] WBC # Bld Auto 5.3 x1000/uL Normal 5 4 - 11 [facility] nRBC # Bld Auto 0.0 x 1000/uL Normal 5 0 - 1 [facility] Platelet # Bld Auto 139.0 x1000/uL Below low normal 5 150 - 420 [facility] RDW RBC Auto-Rto 13.5 % Normal 5 11 - 15 [facility] Lymphocytes # Bld Auto 0.56 x 1000/uL Below low normal 5 0.6 - 3.7 [facility] Eosinophil # Bld Auto 0.19 x 1000/uL Normal 5 0 - 1 [facility] Neutrophils/leuk NFr Bld Auto 77.0 % Above high normal 5 39 - 72 [facility] Basophils # Bld Auto 0.02 x 1000/uL Normal 5 0 - 1 [facility] Basophils/leuk NFr Bld Auto 0.4 % Normal 5 0 - 1.4 [facility] Hct VFr Bld Auto 19.6 % Below low normal 02 5 35 - 45 [facility] HCO3 SerPl-sCnc 24.0 mmol/L Normal 5 20 - 30 [facility] Potassium SerPl-sCnc 5.3 mmol/L Normal 5 3.3 - 5.3 [facility] BUN SerPl-mCnc 52.0 mg/dL Above high normal 10/02/19 2 5 6 - 20 [facility] Anion Gap3 SerPl-sCnc 14.0 Normal 5 7 - 17 [facility] CREATININE [place] Normal 5 [facility] Glucose SerPl-mCnc 90.0 mg/dL Normal 5 70 - 100 [facility] Creat SerPl-mCnc 8.35 mg/dL Above high normal 5 0.4 - 1.3 [facility] BUN/Creat SerPl 6.2 Below low normal 10/02/19 2 5 8 - 23 [facility] Sodium SerPl-sCnc 136.0 mmol/L Normal 5 136 - 144 [facility] Chloride SerPl-sCnc 98.0 mmol/L Normal 10/02/19 2 5 98 - 107 [facility] Calcium SerPl-mCnc 7.3 mg/dL Below low normal 10/01 5 8.8 - 10.2 [facility] GFR/BSA.pred SerPlBld XQE-ZLP-XdDSoj 6.0 mL/min/1.73m2 Below low normal 5 - [facility] Basophils # Bld Auto 0.03 x 1000/uL Normal 5 0 - 1 [facility] Basophils/leuk NFr Bld Auto 0.4 % Normal 5 0 - 1.4 [facility] nRBC/100 WBC Bld Auto-Rto 0.0 % Normal 5 0 - 1 [facility] Hgb Bld-mCnc 6.3 g/dL Critically low 5 11.7 - 15.5 [facility] Eosinophil # Bld Auto 0.26 x 1000/uL Normal 5 0 - 1 [facility] WBC # Bld Auto 6.9 x1000/uL Normal 5 4 - 11 [facility] MCHC RBC Auto-mCnc 30.0 g/dL Below low normal 09/30 5 31 - 36 [facility] MCV RBC Auto 99.1 fL Normal 5 80 - 100 [facility] PMV Bld Auto 10.2 fL Normal 5 8 - 12 [facility] Monocytes/leuk NFr Bld Auto 7.2 % Normal 5 4 - 12 [facility] Eosinophil/leuk NFr Bld Auto 3.8 % Normal 5 0 - 5 [facility] Lymphocytes/leuk NFr Bld Auto 12.6 % Below low normal 5 17 - 50 [facility] Imm Granulocytes # Bld Auto 0.03 x 1000/uL Normal 5 0 - 0.3 [facility] RBC # Bld Auto 2.12 M/uL Below low normal 5 4 - 6 [facility] Neutrophils # Bld Auto 5.23 x 1000/uL Normal 5 2 - 7.6 [facility] nRBC # Bld Auto 0.0 x 1000/uL Normal 5 0 - 1 [facility] Hct VFr Bld Auto 21.0 % Below low normal 02 5 35 - 45 [facility] Neutrophils/leuk NFr Bld Auto 75.6 % Above high normal 5 39 - 72 [facility] Lymphocytes # Bld Auto 0.87 x 1000/uL Normal 5 0.6 - 3.7 [facility] Platelet # Bld Auto 147.0 x1000/uL Below low normal 5 150 - 420 [facility] Monocytes # Bld Auto 0.5 x 1000/uL Normal 5 0 - 1 [facility] MCH RBC Qn Auto 29.7 pg Normal 5 27 - 33 [facility] Imm Granulocytes/leuk NFr Bld Auto 0.4 % Normal 5 0 - 1 [facility] RDW RBC Auto-Rto 13.4 % Normal 5 11 - 15 [facility] Phosphate SerPl-mCnc 4.5 mg/dL Normal 5 2.2 - 4.5 [facility] Magnesium SerPl-mCnc 1.8 mg/dL Normal 5 1.7 - 2.4 [facility] Glucose SerPl-mCnc 86.0 mg/dL Normal 5 70 - 100 [facility] BUN/Creat SerPl 6.4 Below low normal 10/01/19 2 5 8 - 23 [facility] Potassium SerPl-sCnc 5.8 mmol/L Above high normal 5 3.3 - 5.3 [facility] Creat SerPl-mCnc 7.84 mg/dL Above high normal 5 0.4 - 1.3 [facility] Calcium SerPl-mCnc 7.3 mg/dL Below low normal 09/30 5 8.8 - 10.2 [facility] BUN SerPl-mCnc 50.0 mg/dL Above high normal 10/01/19 2 5 6 - 20 [facility] GFR/BSA.pred SerPlBld [id number]-OsLOfd 6.0 mL/min/1.73m2 Below low normal 5 - [facility] CREATININE DELTA Normal 5 [facility] Chloride SerPl-sCnc 101.0 mmol/L Normal 10/01/19 2 5 98 - 107 [facility] HCO3 SerPl-sCnc 26.0 mmol/L Normal 5 20 - 30 [facility] Sodium SerPl-sCnc 139.0 mmol/L Normal 5 136 - 144 [facility] Anion Gap3 SerPl-sCnc 12.0 Normal 5 7 - 17 [facility] ANTIBODY SCREEN NEG Normal 10/01/19 2 5 [facility] ABO GROUPING O Normal 5 [facility] RH TYPE POS Normal 5 [facility] SPECIMEN EXPIRATION DATE AND TIME 10/03/2024 23:59 Normal 5 [facility] Creat SerPl-mCnc 7.34 mg/dL Above high normal 5 0.4 - 1.3 [facility] CREATININE DELTA Normal 5 [facility] Anion Gap3 SerPl-sCnc 20.0 Above high normal 5 7 - 17 [facility] Potassium SerPl-sCnc 5.6 mmol/L Above high normal 5 3.3 - 5.3 [facility] Calcium SerPl-mCnc 8.1 mg/dL Below low normal 09/30 5 8.8 - 10.2 [facility] Chloride SerPl-sCnc 98.0 mmol/L Normal 10/01/19 2 5 98 - 107 [facility] BUN/Creat SerPl 6.4 Below low normal 10/01/19 2 5 8 - 23 [facility] BUN SerPl-mCnc 47.0 mg/dL Above high normal 10/01/19 2 5 6 - 20 [facility] Glucose SerPl-mCnc 100.0 mg/dL Normal 5 70 - 100 [facility] Sodium SerPl-sCnc 139.0 mmol/L Normal 5 136 - 144 [facility] GFR/BSA.pred SerPlBld [id number] 7.0 mL/min/1.73m2 Below low normal 5 - [facility] HCO3 SerPl-sCnc 21.0 mmol/L Normal 5 20 - 30 [facility] HBV surface Ab SerPl IA-aCnc 66.79 mIU/mL Normal 5 - [facility] HBV surface Ag SerPl Ql IA Negative Normal 5 - [facility] HBV core IgG+IgM SerPl Ql IA Negative Normal 5 - [facility] RH TYPE POS Normal 5 [facility] ANTIBODY SCREEN NEG Normal 08/14/19 2 5 [facility] SPECIMEN EXPIRATION DATE AND TIME 08/16/2024 23:59 Normal 5 [facility] ABO GROUPING O Normal 5 [facility] Platelet # Bld Auto 166.0 x1000/uL Normal 5 150 - 420 [facility] WBC # Bld Auto 5.0 x1000/uL Normal 5 4 - 11 [facility] Hgb Bld-mCnc 7.4 g/dL Below low normal 5 11.7 - 15.5 [facility] nRBC/100 WBC Bld Auto-Rto 0.0 % Normal 5 0 - 1 [facility] RBC # Bld Auto 2.36 M/uL Below low normal 5 4 - 6 [facility] Hct VFr Bld Auto 23.3 % Below low normal 02 5 35 - 45 [facility] MCH RBC Qn Auto 31.4 pg Normal 5 27 - 33 [facility] Eosinophil/leuk NFr Bld Auto 11.5 % Above high normal 5 0 - 5 [facility] Lymphocytes # Bld Auto 0.64 x 1000/uL Normal 5 0.6 - 3.7 [facility] Basophils # Bld Auto 0.05 x 1000/uL Normal 5 0 - 1 [facility] MCHC RBC Auto-mCnc 31.8 g/dL Normal 5 31 - 36 [facility] Imm Granulocytes # Bld Auto 0.03 x 1000/uL Normal 5 0 - 0.3 [facility] Neutrophils # Bld Auto 3.31 x 1000/uL Normal 5 2 - 7.6 [facility] nRBC # Bld Auto 0.0 x 1000/uL Normal 5 0 - 1 [facility] Monocytes/leuk NFr Bld Auto 8.5 % Normal 5 4 - 12 [facility] Lymphocytes/leuk NFr Bld Auto 12.7 % Below low normal 5 17 - 50 [facility] Basophils/leuk NFr Bld Auto 1.0 % Normal 5 0 - 1.4 [facility] Monocytes # Bld Auto 0.43 x 1000/uL Normal 5 0 - 1 [facility] RDW RBC Auto-Rto 15.4 % Above high normal 5 11 - 15 [facility] Imm Granulocytes/leuk NFr Bld Auto 0.6 % Normal 5 0 - 1 [facility] Neutrophils/leuk NFr Bld Auto 65.7 % Normal 5 39 - 72 [facility] PMV Bld Auto 10.1 fL Normal 5 8 - 12 [facility] Eosinophil # Bld Auto 0.58 x 1000/uL Normal 5 0 - 1 [facility] MCV RBC Auto 98.7 fL Normal 5 80 - 100 [facility] Glucose SerPl-mCnc 125.0 mg/dL Above high normal 07/31 5 70 - 100 [facility] Calcium SerPl-mCnc 9.5 mg/dL Normal 5 8.8 - 10.2 [facility] HCO3 SerPl-sCnc 25.0 mmol/L Normal 5 20 - 30 [facility] Anion Gap3 SerPl-sCnc 15.0 Normal 5 7 - 17 [facility] BUN SerPl-mCnc 37.0 mg/dL Above high normal 08/13/19 2 5 6 - 20 [facility] B[facility] CREATININE DELTA Normal 5 [facility] Chloride SerPl-sCnc 97.0 mmol/L Below low normal 07/31 5 98 - 107 [facility] BUN/Creat SerPl 4.0 Below low normal 08/13/19 2 5 8 - 23 [facility] GFR/BSA.pred SerPlBld QUH-TDA-CdKXvt 5.0 mL/min/1.73m2 Below low normal 5 - [facility] Potassium SerPl-sCnc 5.0 mmol/L Normal 5 3.3 - 5.3 [facility] Sodium SerPl-sCnc 137.0 mmol/L Normal 5 136 - 144 [facility] Creat SerPl-mCnc 9.2 mg/dL Above high normal 5 0.4 - 1.3 [facility] Phosphate SerPl-mCnc 5.1 mg/dL Above high normal 5 2.2 - 4.5 [facility] MCH RBC Qn Auto 31.2 pg Normal 5 27 - 33 [facility] WBC # Bld Auto 6.5 x1000/uL Normal 5 4 - 11 [facility] Hgb Bld-mCnc 6.7 g/dL Below low normal 5 11.7 - 15.5 [facility] MCV RBC Auto 98.1 fL Normal 5 80 - 100 [facility] RBC # Bld Auto 2.15 M/uL Below low normal 5 4 - 6 [facility] PMV Bld Auto 10.2 fL Normal 5 8 - 12 [facility] RDW RBC Auto-Rto 15.3 % Above high normal 5 11 - 15 [facility] Neutrophils # Bld Auto 4.74 x 1000/uL Normal 5 2 - 7.6 [facility] Hct VFr Bld Auto 21.1 % Below low normal 02 5 35 - 45 [facility] Platelet # Bld Auto 154.0 x1000/uL Normal 5 150 - 420 [facility] MCHC RBC Auto-mCnc 31.8 g/dL Normal 5 31 - 36 [facility] SPECIMEN EXPIRATION DATE AND TIME 08/13/2024 23:59 Normal 5 [facility] ABO GROUPING O Normal 5 [facility] ANTIBODY SCREEN NEG Normal 08/11/19 2 5 [facility] RH TYPE POS Normal 5 [facility] Phosphate SerPl-mCnc 5.0 mg/dL Above high normal 5 2.2 - 4.5 [facility] Platelet # Bld Auto 172.0 x1000/uL Normal 5 150 - 420 [facility] Imm Granulocytes # Bld Auto 0.03 x 1000/uL Normal 5 0 - 0.3 [facility] WBC # Bld Auto 7.0 x1000/uL Normal 5 4 - 11 [facility] Monocytes # Bld Auto 0.68 x 1000/uL Normal 5 0 - 1 [facility] PMV Bld Auto 10.2 fL Normal 5 8 - 12 [facility] Basophils # Bld Auto 0.04 x 1000/uL Normal 5 0 - 1 [facility] Lymphocytes/leuk NFr Bld Auto 8.7 % Below low normal 5 17 - 50 [facility] MCV RBC Auto 96.2 fL Normal 5 80 - 100 [facility] Lymphocytes # Bld Auto 0.61 x 1000/uL Normal 5 0.6 - 3.7 [facility] Neutrophils/leuk NFr Bld Auto 73.3 % Above high normal 5 39 - 72 [facility] Monocytes/leuk NFr Bld Auto 9.7 % Normal 5 4 - 12 [facility] RBC Auto-Rto 15.3 % Above high normal 5 11 - 15 [facility] nRBC # Bld Auto 0.0 x 1000/uL Normal 5 0 - 1 [facility] Basophils/leuk NFr Bld Auto 0.6 % Normal 5 0 - 1.4 [facility] RBC # Bld Auto 2.09 M/uL Below low normal 5 4 - 6 [facility] Granulocytes/leuk NFr Bld Auto 0.4 % Normal 5 0 - 1 [facility] Eosinophil/leuk NFr Bld Auto 7.3 % Above high normal 5 0 - 5 [facility] Hct VFr Bld Auto 20.1 % Below low normal 02 5 35 - 45 [facility] Eosinophil # Bld Auto 0.51 x 1000/uL Normal 5 0 - 1 [facility] nRBC/100 WBC Bld Auto-Rto 0.0 % Normal 5 0 - 1 [facility] Hgb Bld-mCnc 6.5 g/dL Below low normal 5 11.7 - 15.5 [facility] Neutrophils # Bld Auto 5.14 x 1000/uL Normal 5 2 - 7.6 [facility] MCHC RBC Auto-mCnc 32.3 g/dL Normal 5 31 - 36 [facility] RBC Qn Auto 31.1 pg Normal 5 27 - 33 [facility] Hct VFr Bld Auto 20.2 % Below low normal 02 5 35 - 45 [facility] Hgb Bld-mCnc 6.6 g/dL Below low normal 5 11.7 - 15.5 [facility] TIBC SerPl-mCnc Normal 5 [facility] Iron Satn MFr SerPl Normal 08/08/19 2 5 [facility] Iron SerPl-mCnc 41.0 ug/dL Normal 5 37 - 145 [facility] Ferritin SerPl-mCnc 1719.0 ng/mL Above high normal 5 13 - 150 [facility] Monocytes/leuk NFr Bld Auto 8.9 % Normal 5 4 - 12 [facility] MCH[facility] RBC Auto-mCnc 31.0 g/dL Normal 5 31 - 36 [facility] Basophils # Bld Auto 0.02 x 1000/uL Normal 5 0 - 1 [facility] Monocytes # Bld Auto 0.43 x 1000/uL Normal 5 0 - 1 [facility] Eosinophil/leuk NFr Bld Auto 3.9 % Normal 5 0 - 5 [facility] MCV RBC Auto 97.4 fL Normal 5 80 - 100 [facility] Basophils/leuk NFr Bld Auto 0.4 % Normal 5 0 - 1.4 [facility] RBC # Bld Auto 1.92 M/uL Below low normal 5 4 - 6 [facility] Eosinophil # Bld Auto 0.19 x 1000/uL Normal 5 0 - 1 [facility] Platelet # Bld Auto 142.0 x1000/uL Below low normal 5 150 - 420 [facility] PMV Bld Auto 10.4 fL Normal 5 8 - 12 [facility] RBC Qn Auto 30.2 pg Normal 5 27 - 33 [facility] Lymphocytes/leuk NFr Bld Auto 10.5 % Below low normal 5 17 - 50 [facility] nRBC/100 WBC Bld Auto-Rto 0.0 % Normal 5 0 - 1 [facility] Hct VFr Bld Auto 18.7 % Below low normal 02 5 35 - 45 [facility] Lymphocytes # Bld Auto 0.51 x 1000/uL Below low normal 5 0.6 - 3.7 [facility] Granulocytes/leuk NFr Bld Auto 0.4 % Normal 5 0 - 1 [facility] nRBC # Bld Auto 0.0 x 1000/uL Normal 5 0 - 1 [facility] Neutrophils # Bld Auto 3.68 x 1000/uL Normal 5 2 - 7.6 [facility] Neutrophils/leuk NFr Bld Auto 75.9 % Above high normal 5 39 - 72 [facility] RBC Auto-Rto 15.3 % Above high normal 5 11 - 15 [facility] WBC # Bld Auto 4.9 x1000/uL Normal 5 4 - 11 [facility] Hgb Bld-mCnc 5.8 g/dL Critically low 5 11.7 - 15.5 [facility] Granulocytes # Bld Auto 0.02 x 1000/uL Normal 5 0 - 0.3 [facility] HCO3 SerPl-sCnc 25.0 mmol/L Normal 5 20 - 30 [facility] Calcium SerPl-mCnc 9.1 mg/dL Normal 5 8.8 - 10.2 [facility] CREATININE [place] Normal 5 [facility] Potassium SerPl-sCnc 5.0 mmol/L Normal 5 3.3 - 5.3 [facility] Anion Gap3 SerPl-sCnc 16.0 Normal 5 7 - 17 [facility] Glucose SerPl-mCnc 111.0 mg/dL Above high normal 5 70 - 100 [facility] BUN/Creat SerPl 6.0 Below low normal 08/08/19 2 5 8 - 23 [facility] Creat SerPl-mCnc 8.38 mg/dL Above high normal 5 0.4 - 1.3 [facility] GFR/BSA.pred SerPlBld GPV-[id number]-IdWNju 6.0 mL/min/1.73m2 Below low normal 5 - [facility] Sodium SerPl-sCnc 135.0 mmol/L Below low normal 5 136 - 144 [facility] BUN SerPl-mCnc 50.0 mg/dL Above high normal 08/08/19 2 5 6 - 20 [facility] Chloride SerPl-sCnc 94.0 mmol/L Below low normal 5 98 - 107 [facility] Phosphate SerPl-mCnc 4.7 mg/dL Above high normal 5 2.2 - 4.5 [facility] Magnesium SerPl-mCnc 2.2 mg/dL Normal 5 1.7 - 2.4 [facility] aPTT PPP 39.1 seconds Above high normal 5 23 - 31 [facility] ABO GROUPING O Normal 5 [facility] RH TYPE POS Normal 5 [facility] SPECIMEN EXPIRATION DATE AND TIME 08/09/2024 23:59 Normal 5 [facility] ANTIBODY SCREEN NEG Normal 08/07/19 2 5 [facility] [place] NEG Normal 5 [facility] Phosphate SerPl-mCnc 4.1 mg/dL Normal 5 2.2 - 4.5 [facility] Anion Gap3 SerPl-sCnc 12.0 Normal 5 7 - 17 [facility] Creat SerPl-mCnc 5.89 mg/dL Above high normal 5 0.4 - 1.3 [facility] Glucose SerPl-mCnc 94.0 mg/dL Normal 5 70 - 100 [facility] BUN/Creat SerPl 6.3 Below low normal 08/07/19 2 5 8 - 23 [facility] CREATININE [place] Normal 5 [facility] Calcium SerPl-mCnc 9.1 mg/dL Normal 5 8.8 - 10.2 [facility] Chloride SerPl-sCnc 97.0 mmol/L Below low normal 5 98 - 107 [facility] GFR/BSA.pred SerPlBld NWN-JLQ-FvRIai 9.0 mL/min/1.73m2 Below low normal 5 - [facility] Potassium SerPl-sCnc 4.8 mmol/L Normal 5 3.3 - 5.3 [facility] HCO3 SerPl-sCnc 26.0 mmol/L Normal 5 20 - 30 [facility] Sodium SerPl-sCnc 135.0 mmol/L Below low normal 5 136 - 144 [facility] BUN SerPl-mCnc 37.0 mg/dL Above high normal 08/07/19 2 5 6 - 20 [facility] Magnesium SerPl-mCnc 2.2 mg/dL Normal 5 1.7 - 2.4 [facility] RBC Auto-Rto 15.2 % Above high normal 5 11 - 15 [facility] M[facility] RBC Qn Auto 30.5 pg Normal 5 27 - 33 [facility] Eosinophil # Bld Auto 0.19 x 1000/uL Normal 5 0 - 1 [facility] Neutrophils/leuk NFr Bld Auto 74.0 % Above high normal 5 39 - 72 [facility] Neutrophils # Bld Auto 3.39 x 1000/uL Normal 5 2 - 7.6 [facility] Monocytes # Bld Auto 0.41 x 1000/uL Normal 5 0 - 1 [facility] RBC # Bld Auto 2.13 M/uL Below low normal 5 4 - 6 [facility] Monocytes/leuk NFr Bld Auto 9.0 % Normal 5 4 - 12 [facility] nRBC # Bld Auto 0.0 x 1000/uL Normal 5 0 - 1 [facility] Granulocytes/leuk NFr Bld Auto 0.9 % Normal 5 0 - 1 [facility] Eosinophil/leuk NFr Bld Auto 4.1 % Normal 5 0 - 5 [facility] PMV Bld Auto 10.2 fL Normal 5 8 - 12 [facility] Platelet # Bld Auto 139.0 x1000/uL Below low normal 5 150 - 420 [facility] nRBC/100 WBC Bld Auto-Rto 0.0 % Normal 5 0 - 1 [facility] Granulocytes # Bld Auto 0.04 x 1000/uL Normal 5 0 - 0.3 [facility] Lymphocytes # Bld Auto 0.53 x 1000/uL Below low normal 5 0.6 - 3.7 [facility] Basophils/leuk NFr Bld Auto 0.4 % Normal 5 0 - 1.4 [facility] Lymphocytes/leuk NFr Bld Auto 11.6 % Below low normal 5 17 - 50 [facility] MCV RBC Auto 98.1 fL Normal 5 80 - 100 [facility] Basophils # Bld Auto 0.02 x 1000/uL Normal 5 0 - 1 [facility] WBC # Bld Auto 4.6 x1000/uL Normal 5 4 - 11 [facility] Hct VFr Bld Auto 20.9 % Below low normal 02 5 35 - 45 [facility] MCHC RBC Auto-mCnc 31.1 g/dL Normal 5 31 - 36 [facility] Hgb Bld-mCnc 6.5 g/dL Below low normal 5 11.7 - 15.5 [facility] ANTIBODY IDENTIFICATION 1 POS, Non-Specific Antibody Normal 5 [facility] ANTIBODY IDENTIFICATION 2 POS, Cold Auto Antibody Normal 5 [facility] Procalcitonin SerPl-mCnc 0.4 ng/mL Above high normal 5 - [facility] nRBC/100 WBC Bld Auto-Rto 0.0 % Normal 5 0 - 1 [facility] Neutrophils/leuk NFr Bld Auto 75.2 % Above high normal 5 39 - 72 [facility] Neutrophils # Bld Auto 3.92 x 1000/uL Normal 5 2 - 7.6 [facility] RBC Qn Auto 31.2 pg Normal 5 27 - 33 [facility] RBC Auto-Rto 15.6 % Above high normal 5 11 - 15 [facility] Granulocytes # Bld Auto 0.03 x 1000/uL Normal 5 0 - 0.3 [facility] Hgb Bld-mCnc 6.9 g/dL Below low normal 5 11.7 - 15.5 [facility] PMV Bld Auto 9.9 fL Normal 5 8 - 12 [facility] nRBC # Bld Auto 0.0 x 1000/uL Normal 5 0 - 1 [facility] MCV RBC Auto 97.7 fL Normal 5 80 - 100 [facility] Monocytes # Bld Auto 0.49 x 1000/uL Normal 5 0 - 1 [facility] MCHC RBC Auto-mCnc 31.9 g/dL Normal 5 31 - 36 [facility] Eosinophil # Bld Auto 0.18 x 1000/uL Normal 5 0 - 1 [facility] Hct VFr Bld Auto 21.6 % Below low normal 02 5 35 - 45 [facility] Lymphocytes/leuk NFr Bld Auto 11.1 % Below low normal 5 17 - 50 [facility] Platelet # Bld Auto 168.0 x1000/uL Normal 5 150 - 420 [facility] Eosinophil/leuk NFr Bld Auto 3.5 % Normal 5 0 - 5 [facility] Basophils # Bld Auto 0.01 x 1000/uL Normal 5 0 - 1 [facility] Granulocytes/leuk NFr Bld Auto 0.6 % Normal 5 0 - 1 [facility] Lymphocytes # Bld Auto 0.58 x 1000/uL Below low normal 5 0.6 - 3.7 [facility] Basophils/leuk NFr Bld Auto 0.2 % Normal 5 0 - 1.4 [facility] RBC # Bld Auto 2.21 M/uL Below low normal 5 4 - 6 [facility] WBC # Bld Auto 5.2 x1000/uL Normal 5 4 - 11 [facility] Monocytes/leuk NFr Bld Auto 9.4 % Normal 5 4 - 12 [facility] Anion Gap3 SerPl-sCnc 14.0 Normal 5 7 - 17 [facility] GFR/BSA.pred SerPlBld HQX-HHT-IeVMtj 6.0 mL/min/1.73m2 Below low normal 5 - [facility] BUN SerPl-mCnc 48.0 mg/dL Above high normal 08/06/19 2 5 6 - 20 [facility] CREATININE [place] Normal 5 [facility] Chloride SerPl-sCnc 94.0 mmol/L Below low normal 5 98 - 107 [facility] Glucose SerPl-mCnc 95.0 mg/dL Normal 5 70 - 100 [facility] Potassium SerPl-sCnc 5.1 mmol/L Normal 5 3.3 - 5.3 [facility] Sodium SerPl-sCnc 136.0 mmol/L Normal 5 136 - 144 [facility] BUN/Creat SerPl 5.7 Below low normal 08/06/19 2 5 8 - 23 [facility] HCO3 SerPl-sCnc 28.0 mmol/L Normal 5 20 - 30 [facility] Calcium SerPl-mCnc 9.0 mg/dL Normal 5 8.8 - 10.2 [facility] Creat SerPl-mCnc 8.44 mg/dL Above high normal 5 0.4 - 1.3 [facility] BUN SerPl-mCnc 25.0 mg/dL Above high normal 08/05/19 2 5 6 - 20 [facility] Chloride SerPl-sCnc 95.0 mmol/L Below low normal 5 98 - 107 [facility] HCO3 SerPl-sCnc 30.0 mmol/L Normal 5 20 - 30 [facility] Potassium SerPl-sCnc 4.4 mmol/L Normal 5 3.3 - 5.3 [facility] Anion Gap3 SerPl-sCnc 10.0 Normal 5 7 - 17 [facility] Sodium SerPl-sCnc 135.0 mmol/L Below low normal 5 136 - 144 [facility] Calcium SerPl-mCnc 9.2 mg/dL Normal 5 8.8 - 10.2 [facility] BUN/Creat SerPl 4.7 Below low normal 08/05/19 2 5 8 - 23 [facility] Glucose SerPl-mCnc 92.0 mg/dL Normal 5 70 - 100 [facility] Creat SerPl-mCnc 5.35 mg/dL Above high normal 5 0.4 - 1.3 [facility] GFR/BSA.pred SerPlBld BNL-NTS-AoPAdp 10.0 mL/min/1.73m2 Below low normal 5 - [facility] CREATININE [place] Normal 5 [facility] BUN/Creat SerPl 5.5 Below low normal 08/04/19 2 5 8 - 23 [facility] Glucose SerPl-mCnc 88.0 mg/dL Normal 5 70 - 100 [facility] Anion Gap3 SerPl-sCnc 15.0 Normal 5 7 - 17 [facility] BUN SerPl-mCnc 53.0 mg/dL Above high normal 08/04/19 2 5 6 - 20 [facility] GFR/BSA.pred SerPlBld OZA-GHG-PqCLrd 5.0 mL/min/1.73m2 Below low normal 5 - [facility] Chloride SerPl-sCnc 94.0 mmol/L Below low normal 5 98 - 107 [facility] HCO3 SerPl-sCnc 25.0 mmol/L Normal 5 20 - 30 [facility] Sodium SerPl-sCnc 134.0 mmol/L Below low normal 5 136 - 144 [facility] Creat SerPl-mCnc 9.71 mg/dL Above high normal 5 0.4 - 1.3 [facility] CREATININE [place] Normal 5 [facility] Calcium SerPl-mCnc 9.2 mg/dL Normal 5 8.8 - 10.2 [facility] Potassium SerPl-sCnc 8.9 mmol/L Critically high 5 3.3 - 5.3 [facility] Basophils/leuk NFr Bld Auto 0.3 % Normal 5 0 - 1.4 [facility] Lymphocytes # Bld Auto 0.56 x 1000/uL Below low normal 5 0.6 - 3.7 [facility] Granulocytes # Bld Auto 0.02 x 1000/uL Normal 5 0 - 0.3 [facility] Neutrophils/leuk NFr Bld Auto 80.3 % Above high normal 5 39 - 72 [facility] RBC Auto-Rto 15.4 % Above high normal 5 11 - 15 [facility] MCV RBC Auto 97.7 fL Normal 5 80 - 100 [facility] Eosinophil/leuk NFr Bld Auto 2.8 % Normal 5 0 - 5 [facility] nRBC/100 WBC Bld Auto-Rto 0.0 % Normal 5 0 - 1 [facility] Hgb Bld-mCnc 6.9 g/dL Below low normal 5 11.7 - 15.5 [facility] Neutrophils # Bld Auto 4.64 x 1000/uL Normal 5 2 - 7.6 [facility] nRBC # Bld Auto 0.0 x 1000/uL Normal 5 0 - 1 [facility] Monocytes # Bld Auto 0.38 x 1000/uL Normal 5 0 - 1 [facility] WBC # Bld Auto 5.8 x1000/uL Normal 5 4 - 11 [facility] Granulocytes/leuk NFr Bld Auto 0.3 % Normal 5 0 - 1 [facility] PMV Bld Auto 10.0 fL Normal 5 8 - 12 [facility] RBC Qn Auto 31.2 pg Normal 5 27 - 33 [facility] RBC # Bld Auto 2.21 M/uL Below low normal 5 4 - 6 [facility] Hct VFr Bld Auto 21.6 % Below low normal 02 5 35 - 45 [facility] Platelet # Bld Auto 167.0 x1000/uL Normal 5 150 - 420 [facility] Monocytes/leuk NFr Bld Auto 6.6 % Normal 5 4 - 12 [facility] Eosinophil # Bld Auto 0.16 x 1000/uL Normal 5 0 - 1 [facility] Basophils # Bld Auto 0.02 x 1000/uL Normal 5 0 - 1 [facility] Lymphocytes/leuk NFr Bld Auto 9.7 % Below low normal 5 17 - 50 [facility] MCHC RBC Auto-mCnc 31.9 g/dL Normal 5 31 - 36 [facility] REFLEX URINE CULTURE See Comment Normal 5 [facility] RBC #/area UrnS Auto 1.0 /HPF Normal 5 0 - 2 [facility] Squamous #/area UrnS Auto 36.0 /HPF Above high normal 5 0 - 5 [facility] WBC #/area UrnS Auto 2.0 /HPF Normal 5 0 - 5 [facility] Glucose Ur Strip.auto-mCnc 1+ Abnormal 5 - [facility] Prot Ur Strip.auto-mCnc 1+ Abnormal 5 - [facility] Sp Gr Ur Refract.auto 1.008 Normal 5 1.005 - 1.03 [facility] WBC # Ur Strip Negative Normal 5 - [facility] Hgb Ur Ql Strip.auto Negative Normal 5 - [facility] Color Ur Auto Colorless Normal 5 - [facility] Bilirub Ur Ql Strip.auto Negative Normal 5 - [facility] Urobilinogen Ur Strip-mCnc <2.0 mg/dL Normal 5 - [facility] Nitrite Ur Ql Strip.auto Negative Normal 5 - [facility] pH Ur Strip.auto 7.5 Normal 5 5.5 - 7.5 [facility] Clarity Ur Refract.auto Cloudy Abnormal 5 - [facility] Ketones Ur Strip.auto-mCnc Negative Normal 5 - [facility] Hct VFr Bld Auto 23.6 % Below low normal 02 5 35 - 45 [facility] Hgb Bld-mCnc 7.3 g/dL Below low normal 5 11.7 - 15.5 [facility] aPTT PPP 41.0 seconds Above high normal 5 23 - 31 [facility] Prothrombin time 14.0 seconds Above high normal 5 9.6 - 12.3 [facility] INR PPP 1.29 Above high normal 5 0.86 - 1.13 [facility] MCV RBC Auto 99.0 fL Normal 5 80 - 100 [facility] Hgb Bld-mCnc 6.4 g/dL Critically low 5 11.7 - 15.5 [facility] Neutrophils # Bld Auto 2.7 x 1000/uL Normal 5 2 - 7.6 [facility] PMV Bld Auto 10.5 fL Normal 5 8 - 12 [facility] RBC # Bld Auto 2.07 M/uL Below low normal 5 4 - 6 [facility] RDW RBC Auto-Rto 15.4 % Above high normal 5 11 - 15 [facility] Platelet # Bld Auto 172.0 x1000/uL Normal 5 150 - 420 [facility] Hct VFr Bld Auto 20.5 % Below low normal 02 5 35 - 45 [facility] MCH RBC Qn Auto 30.9 pg Normal 5 27 - 33 [facility] WBC # Bld Auto 3.6 x1000/uL Below low normal 5 4 - 11 [facility] MCHC RBC Auto-mCnc 31.2 g/dL Normal 5 31 - 36 [facility] Sodium SerPl-sCnc 140.0 mmol/L Normal 5 136 - 144 [facility] Creat SerPl-mCnc 8.87 mg/dL Above high normal 5 0.4 - 1.3 [facility] HCO3 SerPl-sCnc 29.0 mmol/L Normal 5 20 - 30 [facility] Potassium SerPl-sCnc 5.0 mmol/L Normal 5 3.3 - 5.3 [facility] Anion Gap3 SerPl-sCnc 13.0 Normal 5 7 - 17 [facility] GFR/BSA.pred SerPlBld QXI-SKO-IbWStj 5.0 mL/min/1.73m2 Below low normal 5 - [facility] Glucose SerPl-mCnc 110.0 mg/dL Above high normal 5 70 - 100 [facility] Calcium SerPl-mCnc 8.2 mg/dL Below low normal 07/31 5 8.8 - 10.2 [facility] Chloride SerPl-sCnc 98.0 mmol/L Normal 08/01/19 2 5 98 - 107 [facility] BUN SerPl-mCnc 35.0 mg/dL Above high normal 08/01/19 2 5 6 - 20 [facility] BUN/Creat SerPl 3.9 Below low normal 08/01/19 2 5 8 - 23 [facility] CREATININE [place] Normal 5 [facility] Phosphate SerPl-mCnc 5.2 mg/dL Above high normal 5 2.2 - 4.5 [facility] aPTT PPP 42.7 seconds Above high normal 5 23 - 31 [facility] aPTT PPP 34.9 seconds Above high normal 5 23 - 31 [facility] INR PPP 1.06 Normal 5 0.86 - 1.13 [facility] Prothrombin time 11.6 seconds Normal 5 9.6 - 12.3 [facility] aPTT PPP 37.8 seconds Above high normal 5 23 - 31 [facility] CREATININE [place] Normal 5 [facility] Sodium SerPl-sCnc 137.0 mmol/L Normal 5 136 - 144 [facility] HCO3 SerPl-sCnc 26.0 mmol/L Normal 5 20 - 30 [facility] GFR/BSA.pred SerPlBld FRM-TPR-BmYGel 5.0 mL/min/1.73m2 Below low normal 5 - [facility] BUN SerPl-mCnc 38.0 mg/dL Above high normal 07/29/19 2 5 6 - 20 [facility] Calcium SerPl-mCnc 7.7 mg/dL Below low normal 07/29 5 8.8 - 10.2 [facility] BUN/Creat SerPl 3.7 Below low normal 07/29/19 2 5 8 - 23 [facility] Anion Gap3 SerPl-sCnc 15.0 Normal 5 7 - 17 [facility] Creat SerPl-mCnc 10.17 mg/dL Above high normal 5 0.4 - 1.3 [facility] Chloride SerPl-sCnc 96.0 mmol/L Below low normal 07/04 5 98 - 107 [facility] Glucose SerPl-mCnc 110.0 mg/dL Above high normal 07/04 5 70 - 100 [facility] Potassium SerPl-sCnc 5.1 mmol/L Normal 5 3.3 - 5.3 [facility] Phosphate SerPl-mCnc 5.0 mg/dL Above high normal 5 2.2 - 4.5 [facility] Hct VFr Bld Auto 21.3 % Below low normal 02 5 35 - 45 [facility] Platelet # Bld Auto 145.0 x1000/uL Below low normal 5 150 - 420 [facility] RBC # Bld Auto 2.19 M/uL Below low normal 5 4 - 6 [facility] PMV Bld Auto 10.7 fL Normal 5 8 - 12 [facility] MCV RBC Auto 97.3 fL Normal 5 80 - 100 [facility] WBC # Bld Auto 3.6 x1000/uL Below low normal 5 4 - 11 [facility] MCHC RBC Auto-mCnc 32.4 g/dL Normal 5 31 - 36 [facility] Neutrophils # Bld Auto 2.78 x 1000/uL Normal 5 2 - 7.6 [facility] Hgb Bld-mCnc 6.9 g/dL Below low normal 5 11.7 - 15.5 [facility] RDW RBC Auto-Rto 15.0 % Normal 5 11 - 15 [facility] MCH RBC Qn Auto 31.5 pg Normal 5 27 - 33 [facility] aPTT PPP 40.6 seconds Above high normal 5 23 - 31 [facility] Phosphate SerPl-mCnc 4.9 mg/dL Above high normal 5 2.2 - 4.5 [facility] ABO GROUPING O Normal 5 [facility] SPECIMEN EXPIRATION DATE AND TIME 07/30/2024 23:59 Normal 5 [facility] RH TYPE POS Normal 5 [facility] ANTIBODY SCREEN NEG Normal 07/27/19 2 5 [facility] HCO3 SerPl-sCnc 24.0 mmol/L Normal 5 20 - 30 [facility] Anion Gap3 SerPl-sCnc 16.0 Normal 5 7 - 17 [facility] Creat SerPl-mCnc 12.08 mg/dL Above high normal 5 0.4 - 1.3 [facility] BUN/Creat SerPl 4.1 Below low normal 07/27/19 2 5 8 - 23 [facility] BUN SerPl-mCnc 50.0 mg/dL Above high normal 07/27/19 2 5 6 - 20 [facility] Calcium SerPl-mCnc 7.4 mg/dL Below low normal 07/27 5 8.8 - 10.2 [facility] Sodium SerPl-sCnc 133.0 mmol/L Below low normal 5 136 - 144 [facility] CREATININE [place] Normal 5 [facility] Potassium SerPl-sCnc 5.5 mmol/L Above high normal 5 3.3 - 5.3 [facility] GFR/BSA.pred SerPlBld PFZ-HKE-KmKCvr 4.0 mL/min/1.73m2 Below low normal 5 - [facility] Chloride SerPl-sCnc 93.0 mmol/L Below low normal 07/04 5 98 - 107 [facility] Glucose SerPl-mCnc 115.0 mg/dL Above high normal 07/04 5 70 - 100 [facility] aPTT PPP 47.3 seconds Above high normal 5 23 - 31 [facility] Platelet # Bld Auto 102.0 x1000/uL Below low normal 5 150 - 420 [facility] Hct VFr Bld Auto 20.5 % Below low normal 02 5 35 - 45 [facility] RDW RBC Auto-Rto 15.1 % Above high normal 5 11 - 15 [facility] Hgb Bld-mCnc 6.6 g/dL Below low normal 5 11.7 - 15.5 [facility] MCV RBC Auto 96.7 fL Normal 5 80 - 100 [facility] RBC # Bld Auto 2.12 M/uL Below low normal 5 4 - 6 [facility] MCHC RBC Auto-mCnc 32.2 g/dL Normal 5 31 - 36 [facility] Neutrophils # Bld Auto 2.68 x 1000/uL Normal 5 2 - 7.6 [facility] MCH RBC Qn Auto 31.1 pg Normal 5 27 - 33 [facility] WBC # Bld Auto 3.4 x1000/uL Below low normal 5 4 - 11 [facility] PMV Bld Auto 11.1 fL Normal 5 8 - 12 [facility] Ca-I adj pH7.4 BldV ISE-mCnc 3.92 mg/dL Below low normal 5 4.6 - 5.08 [facility] Morphology Bld-Imp Mild pancytopenia. Normocytic anemia with anisopoikilocytosis, stomatocytes, ovalocytes; no polychromasia. Leukopenia with normal morphology. Thrombocytopenia with unremarkable morphology. Normal 5 [facility] Vit B12 SerPl-mCnc 904.0 pg/mL Normal 5 232 - 1245 [facility] Chloride SerPl-sCnc 95.0 mmol/L Below low normal 07/04 5 98 - 107 [facility] Glucose SerPl-mCnc 111.0 mg/dL Above high normal 07/04 5 70 - 100 [facility] BUN SerPl-mCnc 39.0 mg/dL Above high normal 07/26/19 2 5 6 - 20 [facility] BUN/Creat SerPl 3.8 Below low normal 07/26/19 2 5 8 - 23 [facility] Sodium SerPl-sCnc 134.0 mmol/L Below low normal 5 136 - 144 [facility] CREATININE [place] Normal 5 [facility] HCO3 SerPl-sCnc 23.0 mmol/L Normal 5 20 - 30 [facility] Potassium SerPl-sCnc 5.1 mmol/L Normal 5 3.3 - 5.3 [facility] GFR/BSA.pred SerPlBld YAA-JGX-DfMWqk 4.0 mL/min/1.73m2 Below low normal 5 - [facility] Creat SerPl-mCnc 10.37 mg/dL Above high normal 5 0.4 - 1.3 [facility] Anion Gap3 SerPl-sCnc 16.0 Normal 5 7 - 17 [facility] Calcium SerPl-mCnc 7.2 mg/dL Below low normal 07/26 5 8.8 - 10.2 [facility] aPTT PPP 52.7 seconds Above high normal 5 23 - 31 [facility] Platelets.reticulat ed NFr Bld Auto 3.0 % Normal 5 1.2 - 8.6 [facility] Platelets.reticulat ed # Bld Auto 2.6 x1000/uL Normal 5 - 20 [facility] MCV RBC Auto 95.1 fL Normal 5 80 - 100 [facility] Neutrophils # Bld Auto 2.43 x 1000/uL Normal 5 2 - 7.6 [facility] RDW RBC Auto-Rto 15.3 % Above high normal 5 11 - 15 [facility] Platelet # Bld Auto 85.0 x1000/uL Below low normal 5 150 - 420 [facility] MCHC RBC Auto-mCnc 33.0 g/dL Normal 5 31 - 36 [facility] WBC # Bld Auto 3.0 x1000/uL Below low normal 5 4 - 11 [facility] Hgb Bld-mCnc 6.4 g/dL Critically low 5 11.7 - 15.5 [facility] PMV Bld Auto 11.0 fL Normal 5 8 - 12 [facility] MCH RBC Qn Auto 31.4 pg Normal 5 27 - 33 [facility] Hct VFr Bld Auto 19.4 % Below low normal 02 5 35 - 45 [facility] RBC # Bld Auto 2.04 M/uL Below low normal 5 4 - 6 [facility] MCHC RBC Auto-mCnc 32.2 g/dL Normal 5 31 - 36 [facility] RBC # Bld Auto 2.09 M/uL Below low normal 5 4 - 6 [facility] Hct VFr Bld Auto 20.2 % Below low normal 02 5 35 - 45 [facility] RBC Qn Auto 31.1 pg Normal 5 27 - 33 [facility] Hgb Bld-mCnc 6.5 g/dL Below low normal 5 11.7 - 15.5 [facility] WBC # Bld Auto 3.0 x1000/uL Below low normal 5 4 - 11 [facility] Platelet # Bld Auto 71.0 x1000/uL Below low normal 5 150 - 420 [facility] PMV Bld Auto 11.5 fL Normal 5 8 - 12 [facility] MCV RBC Auto 96.7 fL Normal 5 80 - 100 [facility] Neutrophils # Bld Auto 2.41 x 1000/uL Normal 5 2 - 7.6 [facility] RDW RBC Auto-Rto 15.3 % Above high normal 5 11 - 15 [facility] Platelets.reticulat ed NFr Bld Auto 3.5 % Normal 5 1.2 - 8.6 [facility] Platelets.reticulat ed # Bld Auto 2.5 x1000/uL Normal 5 - 20 [facility] aPTT PPP 52.6 seconds Above high normal 5 23 - 31 [facility] Anion Gap3 SerPl-sCnc 15.0 Normal 5 7 - 17 [facility] Sodium SerPl-sCnc 135.0 mmol/L Below low normal 5 136 - 144 [facility] GFR/BSA.pred SerPlBld [id number] 6.0 mL/min/1.73m2 Below low normal 5 - [facility] BUN/Creat SerPl 3.9 Below low normal 07/25/19 2 5 8 - 23 [facility] B[facility] CREATININE DELTA Normal 5 [facility] Glucose SerPl-mCnc 100.0 mg/dL Normal 5 70 - 100 [facility] Potassium SerPl-sCnc 5.0 mmol/L Normal 5 3.3 - 5.3 [facility] Creat SerPl-mCnc 8.43 mg/dL Above high normal 5 0.4 - 1.3 [facility] HCO3 SerPl-sCnc 24.0 mmol/L Normal 5 20 - 30 [facility] BUN SerPl-mCnc 33.0 mg/dL Above high normal 07/25/19 2 5 6 - 20 [facility] Chloride SerPl-sCnc 96.0 mmol/L Below low normal 07/04 5 98 - 107 [facility] Calcium SerPl-mCnc 7.1 mg/dL Below low normal 07/25 5 8.8 - 10.2 [facility] aPTT PPP 65.7 seconds Above high normal 5 23 - 31 [facility] WBC # Bld Auto 3.8 x1000/uL Below low normal 5 4 - 11 [facility] MCHC RBC Auto-mCnc 31.7 g/dL Normal 5 31 - 36 [facility] Hgb Bld-mCnc 7.0 g/dL Below low normal 5 11.7 - 15.5 [facility] Hct VFr Bld Auto 22.1 % Below low normal 02 5 35 - 45 [facility] Eosinophil/leuk NFr Bld Auto 1.6 % Normal 5 0 - 5 [facility] Monocytes # Bld Auto 0.22 x 1000/uL Normal 5 0 - 1 [facility] Lymphocytes # Bld Auto 0.36 x 1000/uL Below low normal 5 0.6 - 3.7 [facility] MCV RBC Auto 95.3 fL Normal 5 80 - 100 [facility] PMV Bld Auto 10.8 fL Normal 5 8 - 12 [facility] Neutrophils # Bld Auto 3.07 x 1000/uL Normal 5 2 - 7.6 [facility] Monocytes/leuk NFr Bld Auto 5.9 % Normal 5 4 - 12 [facility] Platelet # Bld Auto 69.0 x1000/uL Below low normal 5 150 - 420 [facility] RBC # Bld Auto 2.32 M/uL Below low normal 5 4 - 6 [facility] Neutrophils/leuk NFr Bld Auto 81.8 % Above high normal 5 39 - 72 [facility] RDW RBC Auto-Rto 15.6 % Above high normal 5 11 - 15 [facility] Basophils # Bld Auto 0.01 x 1000/uL Normal 5 0 - 1 [facility] Imm Granulocytes # Bld Auto 0.03 x 1000/uL Normal 5 0 - 0.3 [facility] MCH RBC Qn Auto 30.2 pg Normal 5 27 - 33 [facility] Lymphocytes/leuk NFr Bld Auto 9.6 % Below low normal 5 17 - 50 [facility] nRBC/100 WBC Bld Auto-Rto 0.0 % Normal 5 0 - 1 [facility] Basophils/leuk NFr Bld Auto 0.3 % Normal 5 0 - 1.4 [facility] Eosinophil # Bld Auto 0.06 x 1000/uL Normal 5 0 - 1 [facility] Imm Granulocytes/leuk NFr Bld Auto 0.8 % Normal 5 0 - 1 [facility] nRBC # Bld Auto 0.0 x 1000/uL Normal 5 0 - 1 [facility] Platelets.reticulat ed NFr Bld Auto 4.3 % Normal 5 1.2 - 8.6 [facility] Platelets.reticulat ed # Bld Auto 3.0 x1000/uL Normal 5 - 20 [facility] aPTT PPP 56.7 seconds Above high normal 5 23 - 31 [facility] Anion Gap3 SerPl-sCnc 19.0 Above high normal 5 7 - 17 [facility] Sodium SerPl-sCnc 134.0 mmol/L Below low normal 5 136 - 144 [facility] Creat SerPl-mCnc 11.38 mg/dL Above high normal 5 0.4 - 1.3 [facility] Calcium SerPl-mCnc 7.2 mg/dL Below low normal 07/24 5 8.8 - 10.2 [facility] BUN SerPl-mCnc 56.0 mg/dL Above high normal 07/24/19 2 5 6 - 20 [facility] Potassium SerPl-sCnc 5.4 mmol/L Above high normal 5 3.3 - 5.3 [facility] Glucose SerPl-mCnc 106.0 mg/dL Above high normal 07/04 5 70 - 100 [facility] BUN/Creat SerPl 4.9 Below low normal 07/24/19 2 5 8 - 23 [facility] HCO3 SerPl-sCnc 21.0 mmol/L Normal 5 20 - 30 [facility] CREATININE [place] Normal 5 [facility] GFR/BSA.pred SerPlBld QLO-[id number] 4.0 mL/min/1.73m2 Below low normal 5 - [facility] Chloride SerPl-sCnc 94.0 mmol/L Below low normal 07/04 5 98 - 107 [facility] Ca-I adj pH7.4 BldV ISE-mCnc 3.79 mg/dL Below low normal 5 4.6 - 5.08 [facility] ABO GROUPING O Normal 5 [facility] RH TYPE POS Normal 5 [facility] ANTIBODY SCREEN NEG Normal 07/24/19 2 5 [facility] SPECIMEN EXPIRATION DATE AND TIME 07/26/2024 23:59 Normal 5 [facility] aPTT PPP 71.8 seconds Above high normal 5 23 - 31 [facility] Ca-I adj pH7.4 BldV ISE-mCnc 3.72 mg/dL Below low normal 5 4.6 - 5.08 [facility] Ferritin SerPl-mCnc 2635.0 ng/mL Above high normal 5 13 - 150 [facility] Iron SerPl-mCnc 90.0 ug/dL Normal 5 37 - 145 [facility] TIBC SerPl-mCnc 145.0 ug/dL Below low normal 07/23/19 2 5 250 - 450 [facility] Iron Satn MFr SerPl 62.0 % Above high normal 5 15 - 50 [facility] Retics/100 RBC NFr Auto 1.0 % Normal 5 0.6 - 2.7 [facility] # 0.021 10 6 cells/uL Below low normal 5 0.023 - 0.14 [facility] Hgb Retic Qn Auto 32.3 pg Normal 5 28.2 - 35.7 [facility] Imm Retics NFr 9.8 % Normal 5 3 - 15.9 [facility] Lactate SerPl-sCnc 0.7 mmol/L Normal 5 0.5 - 2.2 [facility] HCO3 SerPl-sCnc 18.0 mmol/L Below low normal 07/23/19 2 5 20 - 30 [facility] BKR CREATININE DELTA Normal 5 [facility] Calcium SerPl-mCnc 7.2 mg/dL Below low normal 07/23 5 8.8 - 10.2 [facility] GFR/BSA.pred SerPlBld LQP-FTF-SsFGvl 4.0 mL/min/1.73m2 Below low normal 5 - [facility] Glucose SerPl-mCnc 106.0 mg/dL Above high normal 07/04 5 70 - 100 [facility] Potassium SerPl-sCnc 4.4 mmol/L Normal 5 3.3 - 5.3 [facility] Creat SerPl-mCnc 10.36 mg/dL Above high normal 5 0.4 - 1.3 [facility] Chloride SerPl-sCnc 94.0 mmol/L Below low normal 07/04 5 98 - 107 [facility] Anion Gap3 SerPl-sCnc 22.0 Above high normal 5 7 - 17 [facility] BUN SerPl-mCnc 52.0 mg/dL Above high normal 07/23/19 2 5 6 - 20 [facility] BUN/Creat SerPl 5.0 Below low normal 07/23/19 2 5 8 - 23 [facility] Sodium SerPl-sCnc 134.0 mmol/L Below low normal 5 136 - 144 [facility] Hct VFr Bld Auto 20.4 % Below low normal 02 5 35 - 45 [facility] Hgb Bld-mCnc 6.7 g/dL Below low normal 5 11.7 - 15.5 [facility] Platelets.reticulat ed NFr Bld Auto 2.3 % Normal 5 1.2 - 8.6 [facility] Platelets.reticulat ed # Bld Auto 1.5 x1000/uL Normal 5 - 20 [facility] Lymphocytes # Bld Auto 0.47 x 1000/uL Below low normal 5 0.6 - 3.7 [facility] MCH RBC Qn Auto 29.9 pg Normal 5 27 - 33 [facility] PMV Bld Auto 10.8 fL Normal 5 8 - 12 [facility] Monocytes/leuk NFr Bld Auto 5.4 % Normal 5 4 - 12 [facility] Eosinophil/leuk NFr Bld Auto 3.8 % Normal 5 0 - 5 [facility] Hgb Bld-mCnc 6.9 g/dL Below low normal 5 11.7 - 15.5 [facility] Basophils # Bld Auto 0.01 x 1000/uL Normal 5 0 - 1 [facility] Platelet # Bld Auto 67.0 x1000/uL Below low normal 5 150 - 420 [facility] Lymphocytes/leuk NFr Bld Auto 14.9 % Below low normal 5 17 - 50 [facility] WBC # Bld Auto 3.2 x1000/uL Below low normal 5 4 - 11 [facility] Imm Granulocytes # Bld Auto 0.01 x 1000/uL Normal 5 0 - 0.3 [facility] Imm Granulocytes/leuk NFr Bld Auto 0.3 % Normal 5 0 - 1 [facility] nRBC/100 WBC Bld Auto-Rto 0.0 % Normal 5 0 - 1 [facility] nRBC # Bld Auto 0.0 x 1000/uL Normal 5 0 - 1 [facility] MCHC RBC Auto-mCnc 31.9 g/dL Normal 5 31 - 36 [facility] Eosinophil # Bld Auto 0.12 x 1000/uL Normal 5 0 - 1 [facility] RDW RBC Auto-Rto 15.6 % Above high normal 5 11 - 15 [facility] Hct VFr Bld Auto 21.6 % Below low normal 02 5 35 - 45 [facility] Basophils/leuk NFr Bld Auto 0.3 % Normal 5 0 - 1.4 [facility] Neutrophils/leuk NFr Bld Auto 75.3 % Above high normal 5 39 - 72 [facility] Neutrophils # Bld Auto 2.37 x 1000/uL Normal 5 2 - 7.6 [facility] MCV RBC Auto 93.5 fL Normal 5 80 - 100 [facility] RBC # Bld Auto 2.31 M/uL Below low normal 5 4 - 6 [facility] Monocytes # Bld Auto 0.17 x 1000/uL Normal 5 0 - 1 [facility] aPTT PPP 82.5 seconds Above high normal 5 23 - 31 [facility] Creat SerPl-mCnc 17.18 mg/dL Above high normal 5 0.4 - 1.3 [facility] BUN/Creat SerPl 5.7 Below low normal 07/23/19 2 5 8 - 23 [facility] GFR/BSA.pred SerPlBld TYI-WBO-LpKOuq 2.0 mL/min/1.73m2 Below low normal 5 - [facility] BUN SerPl-mCnc 98.0 mg/dL Above high normal 07/23/19 2 5 6 - 20 [facility] HCO3 SerPl-sCnc Normal 5 [facility] Anion Gap3 SerPl-sCnc Normal 5 [facility] Chloride SerPl-sCnc 93.0 mmol/L Below low normal 07/04 5 98 - 107 [facility] Potassium SerPl-sCnc 6.2 mmol/L Critically high 5 3.3 - 5.3 [facility] Calcium SerPl-mCnc 6.3 mg/dL Critically low 02 5 8.8 - 10.2 [facility] BKR CREATININE DELTA Normal 5 [facility] Sodium SerPl-sCnc 133.0 mmol/L Below low normal 5 136 - 144 [facility] Glucose SerPl-mCnc 90.0 mg/dL Normal 5 70 - 100 [facility] PTH-Intact SerPl-mCnc 16.6 pg/mL Normal 5 15 - 65 [facility] Phosphate SerPl-mCnc 9.0 mg/dL Above high normal 5 2.2 - 4.5 [facility] Calcium SerPl-mCnc 6.3 mg/dL Critically low 02 5 8.8 - 10.2 [facility] Albumin SerPl BCG-mCnc 3.6 g/dL Normal 5 3.6 - 5.1 [facility] Iron SerPl-mCnc 87.0 ug/dL Normal 5 37 - 145 [facility] TIBC SerPl-mCnc Normal 5 [facility] Iron Satn MFr SerPl Normal 07/23/19 2 5 [facility] Ferritin SerPl-mCnc 2602.0 ng/mL Above high normal 5 13 - 150 [facility] Glucose SerPl-mCnc 110.0 mg/dL Above high normal 07/04 5 70 - 100 [facility] Potassium SerPl-sCnc 5.5 mmol/L Above high normal 5 3.3 - 5.3 [facility] Anion Gap3 SerPl-sCnc 25.0 Above high normal 5 7 - 17 [facility] BKR CREATININE DELTA Normal 5 [facility] GFR/BSA.pred SerPlBld GYA-VQB-MnCPnp 2.0 mL/min/1.73m2 Below low normal 5 - [facility] Chloride SerPl-sCnc 91.0 mmol/L Below low normal 07/04 5 98 - 107 [facility] BUN/Creat SerPl 5.6 Below low normal 07/23/19 2 5 8 - 23 [facility] Sodium SerPl-sCnc 132.0 mmol/L Below low normal 5 136 - 144 [facility] Calcium SerPl-mCnc 6.2 mg/dL Critically low 02 5 8.8 - 10.2 [facility] HCO3 SerPl-sCnc 16.0 mmol/L Below low normal 07/23/19 2 5 20 - 30 [facility] BUN SerPl-mCnc 95.0 mg/dL Above high normal 07/23/19 2 5 6 - 20 [facility] Creat SerPl-mCnc 17.07 mg/dL Above high normal 5 0.4 - 1.3 [facility] Ca-I adj pH7.4 BldV ISE-mCnc 3.41 mg/dL Below low normal 5 4.6 - 5.08 [facility] HBV surface Ab SerPl IA-aCnc 84.57 mIU/mL Normal 5 - [facility] HBV surface Ag SerPl Ql IA Negative Normal 5 - [facility] HBV core IgG+IgM SerPl Ql IA Negative Normal 5 - [facility] aPTT PPP >139.0 seconds Critically high 5 23 - 31 [facility] Chloride SerPl-sCnc 96.0 mmol/L Below low normal 07/04 5 98 - 107 [facility] HCO3 SerPl-sCnc 15.0 mmol/L Below low normal 07/23/19 2 5 20 - 30 [facility] Creat SerPl-mCnc 15.53 mg/dL Above high normal 5 0.4 - 1.3 [facility] GFR/BSA.pred SerPlBld VMJ-PMP-SdJRfj 3.0 mL/min/1.73m2 Below low normal 5 - [facility] Glucose SerPl-mCnc 91.0 mg/dL Normal 5 70 - 100 [facility] Potassium SerPl-sCnc 5.6 mmol/L Above high normal 5 3.3 - 5.3 [facility] Sodium SerPl-sCnc 133.0 mmol/L Below low normal 5 136 - 144 [facility] Calcium SerPl-mCnc 5.4 mg/dL Critically low 02 5 8.8 - 10.2 [facility] Anion Gap3 SerPl-sCnc 22.0 Above high normal 5 7 - 17 [facility] BUN SerPl-mCnc 90.0 mg/dL Above high normal 07/23/19 2 5 6 - 20 [facility] BUN/Creat SerPl 5.8 Below low normal 07/23/19 2 5 8 - 23 [facility] BKR CREATININE DELTA Normal 5 [facility] Ca-I adj pH7.4 BldV ISE-mCnc 3.17 mg/dL Below low normal 5 4.6 - 5.08 [facility] Troponin T SerPl HS-mCnc -4.0 ng/L Normal 5 [facility] D dimer FEU PPP-mCnc 3.58 mg/L FEU Above high normal 5 - [facility] aPTT PPP 35.0 seconds Above high normal 5 23 - 31 [facility] BUN SerPl-mCnc 95.0 mg/dL Above high normal 07/22/19 2 5 6 - 20 [facility] Chloride SerPl-sCnc 90.0 mmol/L Below low normal 07/04 5 98 - 107 [facility] Potassium SerPl-sCnc 6.8 mmol/L Critically high 5 3.3 - 5.3 [facility] GFR/BSA.pred SerPlBld BNU-NSN-PmCKls 3.0 mL/min/1.73m2 Below low normal 5 - [facility] Calcium SerPl-mCnc 5.9 mg/dL Critically low 02 5 8.8 - 10.2 [facility] Glucose SerPl-mCnc 113.0 mg/dL Above high normal 07/04 5 70 - 100 [facility] BKR CREATININE DELTA Normal 5 [facility] Creat SerPl-mCnc 16.29 mg/dL Above high normal 5 0.4 - 1.3 [facility] HCO3 SerPl-sCnc 15.0 mmol/L Below low normal 07/22/19 2 5 20 - 30 [facility] Anion Gap3 SerPl-sCnc 27.0 Above high normal 5 7 - 17 [facility] Sodium SerPl-sCnc 132.0 mmol/L Below low normal 5 136 - 144 [facility] BUN/Creat SerPl 5.8 Below low normal 07/22/19 2 5 8 - 23 [facility] Troponin T SerPl HS-mCnc 250.0 ng/L Critically high 5 - [facility] nRBC # Bld Auto 0.0 x 1000/uL Normal 5 0 - 1 [facility] nRBC/100 WBC Bld Auto-Rto 0.0 % Normal 5 0 - 1 [facility] MCH RBC Qn Auto 31.0 pg Normal 5 27 - 33 [facility] PMV Bld Auto 11.8 fL Normal 5 8 - 12 [facility] MCV RBC Auto 95.9 fL Normal 5 80 - 100 [facility] RDW RBC Auto-Rto 15.8 % Above high normal 5 11 - 15 [facility] WBC # Bld Auto 5.9 x1000/uL Normal 5 4 - 11 [facility] Platelet # Bld Auto 110.0 x1000/uL Below low normal 5 150 - 420 [facility] Hct VFr Bld Auto 25.7 % Below low normal 02 5 35 - 45 [facility] Hgb Bld-mCnc 8.3 g/dL Below low normal 5 11.7 - 15.5 [facility] MCHC RBC Auto-mCnc 32.3 g/dL Normal 5 31 - 36 [facility] RBC # Bld Auto 2.68 M/uL Below low normal 5 4 - 6 [facility] Lymphocytes/leuk NFr Bld Manual 9.0 % Below low normal 5 17 - 50 [facility] Lymphocytes # Bld Manual 0.71 x 1000/uL Normal 5 0.6 - 3.7 [facility] Monocytes/leuk NFr Bld Manual 7.0 % Normal 5 4 - 12 [facility] Neuts Seg/leuk NFr Bld Manual 81.0 % Above high normal 5 39 - 72 [facility] Variant Lymphs/leuk NFr Bld 3.0 % Above high normal 5 0 - 1 [facility] Eosinophil # Bld Manual 0.0 x 1000/uL Normal 5 0 - 1 [facility] Normochromic Bld Ql Smear Reviewed Normal 5 [facility] Monocytes # Bld Manual 0.41 x 1000/uL Normal 5 0 - 1 [facility] Eosinophil/leuk NFr Bld Manual 0.0 % Normal 5 0 - 5 [facility] Neutrophils # Bld Manual 4.78 x 1000/uL Normal 5 2 - 7.6 [facility] Ovalocytes Bld Ql Smear 1+ Abnormal 5 - [facility] Basophils # Bld 0.0 x 1000/uL Normal 5 0 - 1 [facility] Basophils/leuk NFr Bld 0.0 % Normal 5 0 - 1.4 [facility] History of Medication Use Medication Directions Dispensed Refills Start Date End Date Status cetirizine (ZyrTEC) tablet 5 mg 5 mg, Oral, ONCE, On Fri10/20/24 at 2100, For 1 dose, Pharmacist will implement [facility] Renal Dose Adjustment Protocol unless otherwise specified: Implement Protocol 10/22/19 completed lidocaine (LMX) 4 % cream Topical (Top), ONCE, On Roopa 10/21/24 at 0800, For 1 dose, Apply to: Arm, Left. Give 1 hour prior to hemodialysis. Wrap arm with saran wrap after application May only be used on intact skin. Apply a thick layer to affected area. Allow 30 minutes for numbness to develop. Does not require occlusive maurice 10/22/19 025 completed oxyCODONE (ROXICODONE) Immediate Release tablet 15 mg [Order 1 Start] Name: oxyCODONE (ROXICODONE) Immediate Release tablet 15 mg Signed Summary: 15 mg, Oral, EVERY 4 HOURS PRN, moderate Pain (PIS 4-6), for adult patients may also give for higher pain score per patient preference, Starting on Fri10/20/24 at 1655, For 89 hours, Common Side Effects: Conf 10/21/19 025 aborted aspirin EC delayed release tablet 81 mg 81 mg, Oral, Daily, First dose on Fri10/19/24 at 0900, Common Side Effects: Stomach upset, bleeding, bruising., OP SIG:Take 1 tablet (81 mg total) by mouth daily. 10/20/19 aborted ferric citrate (AURYXIA) 1000 mg (210 mg iron) tablet 420 mg 420 mg (2 tablet), Oral, 3 Times Daily Before Meals, First dose on Fri10/19/24 at 1730, Take 2 Tablets Three Times Daily WITH MEALS PATIENT OWN MEDICATION Stored in Patient Specific Bin of [employer], Indication for Use: End Stage Renal Disease on Dialysis 10/20/19 aborted melatonin tablet 3 mg 3 mg, Oral, Nightly PRN, insomnia/sleep First line therapy, Starting on Fri10/19/24 at 1916, Recommended to administer at least 60 minutes prior to intended bedtime 10/20/19 aborted simethicone (MYLICON) chewable tablet 125 mg 125 mg, Oral, EVERY 6 HOURS PRN, flatulence, Starting on Fri10/19/24 at 1916 10/20/19 aborted acetaminophen (TYLENOL) tablet 650 mg 650 mg, Oral, EVERY 6 HOURS PRN, mild Pain (PIS 1-3), for adult patients may also give for higher pain score per patient preference, Starting on Fri10/18/24 at 0727, Maximum dose of acetaminophen is 4000 mg from all sources in 24 hours. 10/19/19 aborted diphenhydrAMINE (BENADRYL) capsule 25 mg 25 mg, Oral, EVERY 6 HOURS PRN, allergic reaction, Starting on Fri10/18/24 at 1130, Common Side Effects: Drowsiness, stomach upset, confusion, dry mouth. 10/19/19 aborted HYDROmorphone PF (DILAUDID) injection 1 mg 1 mg, IV Push, ONCE, On Fri10/18/24 at 0400, For 1 dose, If ordered IV Push, administer undiluted at a rate of 0.5mg over 1 minute. If ordered SC, administer over a few seconds. For SC dose volumes greater than 1.5 mL, use multiple injection sites. RECOMMENDED monitoring for Opiate Na ve patients 10/19/19 completed iohexoL (OMNIPAQUE) 350 mg iodine/mL injection 70 mL 70 mL, Intravenous, IMG ONCE PRN, other, Starting on Fri10/18/24 at 1007, For 1 dose, Vesicant agents may cause severe tissue damage, including necrosis, if they extravasate into tissue; Common Side Effects: Headache, nausea, allergic reaction. 10/19/19 025 completed diphenhydrAMINE (BENADRYL) injection 10 mg 10 mg, IV Push, ONCE, On Fri08/12/24 at 2100, For 1 dose, Maximum IV Push dose of 50 mg. If ordered IV Push, administer undiluted at a rate of 25 mg over 1 minute. RECOMMENDED monitoring includes: Mental Status. Common Side Effects: Drowsiness, stomach upset, confusion and dry mouth. This drug may b 08/14/19 completed DARBepoetin michael-polysorbate (ARANESP) 40 mcg/0.4 mL syringe Inject 1 mL (100 mcg total) under the skin every 7 days @1800. 08/14/19 active naloxone (NARCAN) 4 mg/actuation nasal spray Use 1 spray in 1 nostril for suspected opioid overdose. May repeat in 2 minutes in other nostril with new device if minimal or no response. 08/14/19 active HYDROmorphone PF (DILAUDID) injection 1.5 mg 1.5 mg, IV Push, ONCE, On Fri08/11/24 at 1515, For 1 dose, If ordered IV Push, administer undiluted at a rate of 0.5mg over 1 minute. If ordered SC, administer over a few seconds. For SC dose volumes greater than 1.5 mL, use multiple injection sites. RECOMMENDED monitoring for Opiate Na ve patient 08/12/19 completed lactated ringers infusion 50 mL/hr, Intravenous, CONTINUOUS, Starting on Fri08/10/24 at 0115 08/11/19 aborted DARBepoetin michael in polysorbate (ARANESP) syringe 100 mcg 100 mcg, Subcutaneous, ONCE, On Fri08/10/24 at 1000, For 1 dose, Given by RN during dialysis session If ordered IV Push: Administer undiluted over 1 minute., Dialysis, Indication for Use: End Stage Renal Disease, On Dialysis, Patient's prior to arrival JOANNE: Darbepoetin, Date of last dose of JOANNE: 08/0508/11/19 completed senna (SENOKOT) tablet 17.2 mg 17.2 mg (2 tablet), Oral, 2 Times Daily Scheduled, First dose (after last modification) on Fri08/08/24 at 2100, Common Side Effects: Diarrhea, discomfort, cramps. 08/10/19 aborted diphenhydrAMINE (BENADRYL) injection 12.5 mg 12.5 mg, IV Push, ONCE, On Fri08/09/24 at 1100, For 1 dose, Maximum IV Push dose of 50 mg. If ordered IV Push, administer undiluted at a rate of 25 mg over 1 minute. RECOMMENDED monitoring includes: Mental Status. Common Side Effects: Drowsiness, stomach upset, confusion and dry mouth. This drug 08/10/19 completed apixaban (ELIQUIS) tablet 5 mg 5 mg, Oral, Every 12 Hours Scheduled, First dose (after last modification) on Fri08/08/24 at 0930, For ORAL administration, may crush tablets and suspend in water or apple juice, or mix with applesauce. For GASTRIC TUBE administration, crush tablet and suspend in 60 mL of water. Suspension should be 08/09/19 25 aborted HYDROmorphone PF (DILAUDID) injection 2 mg 2 mg, Subcutaneous, ONCE, On Fri08/08/24 at 1200, For 1 dose, If ordered IV Push, administer undiluted at a rate of 0.5mg over 1 minute. If ordered SC, administer over a few seconds. For SC dose volumes greater than 1.5 mL, use multiple injection sites. RECOMMENDED monitoring for Opiate Na ve patie 08/09/19 completed oxyCODONE (ROXICODONE) Immediate Release tablet 5 mg 5 mg, Oral, ONCE PRN, severe Pain (PIS 7-10), Starting on Fri08/06/24 at 1928, For 1 dose, Common Side Effects: Confusion, nausea, vomiting, drowsiness, constipation, breathing problems. 03/08/20 25 03/08/2 025 completed ciprofloxacin HCl (CIPRO) tablet 500 mg 500 mg, Oral, EVERY 24 HOURS, First dose (after last modification) on Fri08/08/24 at 1600, For 1 dose, Common Side Effects: Stomach upset, tendon pain or swelling., Reason for Use (RFU): Nosocomial pneumonia (empiric or culture-documente d), Pharmacist will implement [facility] Renal Dose Adjustment Protoc 08/07/19 completed carboxymethylcellulose (REFRESH PLUS) ophthalmic solution in dropperette 1 drop 1 drop, Both Eyes, 3 TIMES DAILY PRN, dry eyes, Starting on Roopa 08/05/24 at 1417, Pharmacist will implement [facility] Artificial Tears Formulations Conversion Protocol unless otherwise specified: Implement Protocol, Protocol: [email or web address] 08/06/19 aborted iohexoL (OMNIPAQUE) 350 mg iodine/mL injection 100 mL 100 mL, Intravenous, IMG ONCE PRN, other, Starting on Fri08/04/24 at 1930, For 1 dose, Vesicant agents may cause severe tissue damage, including necrosis, if they extravasate into tissue; Common Side Effects: Headache, nausea, allergic reaction. 08/06/19 completed sodium chloride 0.9% large volume syringe for autoinjector 40 mL 40 mL, Intravenous, IMG ONCE PRN, other, Imaging, Starting on Fri08/04/24 at 1930, For 1 dose 08/06/19 completed lidocaine 4 % topical patch Place 1 patch over 12 hours onto the skin every 24 hours. Remove & Discard patch within 12 hours or as directed by 08/04/19 active oxymetazoline (AFRIN) 0.05 % nasal spray 2 spray 2 spray, each nostril, ONCE, On Fri08/10/24 at 0015, For 1 dose, Dispose partially used, medication and all packaging (vial, syringe, tubing) even if empty in the black RCRA container. 08/04/19 025 completed camphor-menthoL (SARNA) lotion Topical (Top), 2 TIMES DAILY PRN, itching, Starting on Fri08/01/24 at 2040, Apply to: itching areas 08/03/19 aborted sodium chloride (OCEAN) 0.65 % nasal spray 1 spray 1 spray, each nostril, 2 TIMES DAILY PRN, congestion, Starting on Fri08/10/24 at 1005 08/03/19 aborted cholecalciferol, vitamin D3, 50 mcg (2,000 unit) tablet Take 1 tablet (2,000 Units total) by mouth daily. 08/02/19 active apixaban (ELIQUIS) 5 mg tablet Take 2 tablets (10 mg total) by mouth every 12 (twelve) hours for 6 days, THEN 1 tablet (5 mg total) every 12 (twelve) hours. 08/01/19 active bisacodyL (DULCOLAX) EC tablet 10 mg 10 mg, Oral, Daily, First dose on Fri08/08/24 at 0900, Common Side Effects: Diarrhea, discomfort, cramps. 07/29/19 aborted cholecalciferol (vitamin D3) tablet 2,000 Units 2,000 Units, Oral, Daily, First dose (after last modification) on Roopa 07/29/24 at 0900, 25 mcg = 1000 units, OP SIG:Take 1 tablet (1,000 Units total) by mouth daily. 07/29/19 aborted DARBepoetin michael-polysorbate (ARANESP) 40 mcg/0.4 mL syringe Inject 0.4 mLs (40 mcg total) under the skin every 7 days @1800. 07/27/19 aborted miconazole (MONISTAT) 2 % vaginal cream 1 Applicatorful 1 Applicatorful, Vaginal, Nightly, First dose on Fri07/26/24 at 2100, For 7 doses 07/27/19 aborted EPINEPHrine auto-injector 0.3 mg 0.3 mg, Intramuscular, ONCE PRN, other, allergic reaction, Starting on Fri07/26/24 at 1541, For 1 dose, FOR EMERGENCY USE ONLY: HYPERSENSITIVITY/ ANAPHYLAXIS Dispose partially used, medication and all packaging (vial, syringe, tubing) even if empty in the black RCRA container. 07/26/19 025 aborted NIFEdipine XL (PROCARDIA-XL) 24 hr tablet 60 mg 60 mg, Oral, Nightly, First dose (after last modification) on Fri08/03/24 at 2100, Hold for SBP < 90 mm Hg 07/26/19 025 aborted sevelamer (RENVELA) 800 mg tablet Take 1 tablet (800 mg total) by mouth 3 (three) times daily with meals. 07/26/19 active diphenhydrAMINE (BENADRYL) injection 50 mg 50 mg, IV Push, EVERY 6 HOURS PRN, allergic reaction, Starting on Fri08/10/24 at 1007, HOLD FOR SEDATION /// Maximum IV Push dose of 50 mg. If ordered IV Push, administer undiluted at a rate of 25 mg over 1 minute. RECOMMENDED monitoring includes: Mental Status. Common Side Effects: Drowsiness, sto 07/26/19 aborted diphenhydrAMINE (BENADRYL) ALCOHOL FREE liquid 50 mg 50 mg, Oral, ONCE, On 08/01/24 at 0915, For 1 dose, Common Side Effects: Drowsiness, stomach upset, confusion, dry mouth. 07/26/19 completed oxymetazoline (AFRIN) 0.05 % nasal spray 3 spray 3 spray, each nostril, ONCE, On 08/07/24 at 0045, For 1 dose, Dispose partially used, medication and all packaging (vial, syringe, tubing) even if empty in the black RCRA container. 07/26/19 025 completed calcitrioL (ROCALTROL) capsule 1 mcg 1 mcg, Oral, Daily, First dose (after last modification) on Fri07/26/24 at 0900, Swallow whole; Do NOT open, chew or crush. 07/26/19 025 aborted fluconazole (DIFLUCAN) tablet 150 mg 150 mg, Oral, ONCE, On 07/31/24 at 1545, For 1 dose, Reason for Use (RFU): Kimberly vaginitis, Pharmacist will implement [facility] Renal Dose Adjustment Protocol unless otherwise specified: Implement Protocol 07/25/19 025 completed calcium carbonate (TUMS) chewable tablet 1,500 mg 1,500 mg, Oral, 3 Times Daily Scheduled, First dose (after last modification) on Fri07/25/24 at 1400, Each tablet contains calcium carbonate SALT 500 mg equivalent to ELEMENTAL calcium 200 mg; NOTE: Product is dosed in mg of calcium carbonate SALT Common Side Effects: Chalky taste, stomach upset. 07/25/19 025 aborted ethyl alcohol 62 % nasal swab 1 Application 1 Application, Nasal, Every 12 Hours Scheduled, First dose on Fri07/23/24 at 2100, 1) Clean inside of both nostrils with a tissue. 2) Insert swab into right nostril and rotate for 30 seconds. 3) Repeat swab procedure in left nostril. 4) Do not blow nose. If solution drips, gently wipe with a tissue 07/24/19 025 aborted NIFEdipine XL (PROCARDIA-XL) 24 hr tablet 30 mg 30 mg, Oral, Daily, First dose on Fri08/07/24 at 0900, Hold for SBP < 90 mm Hg 07/24/19 025 aborted acetaminophen (TYLENOL) tablet 1,000 mg 1,000 mg, Oral, Every 8 Hours Scheduled, First dose on Fri07/23/24 at 1400, Maximum dose of acetaminophen is 4000 mg from all sources in 24 hours. 07/23/19 025 aborted albuterol neb sadie 2.5 mg/3 mL (0.083%) (PROVENTIL,VENTOLIN) 2.5 mg, Nebulization, EVERY 4 HOURS PRN, wheezing, shortness of breath, second line for SOB, Starting on Fri08/06/24 at 0618, Common Side Effects: Tachycardia, nervousness., Respiratory Therapist will implement [facility] Nebulizer Frequency Adjustment protocol unless otherwise specified (Excluding Emerge 07/23/19 025 aborted albuterol sulfate 90 mcg/actuation HFA aerosol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
--- OUTSIDE RECORDS SUMMARY | 2024-12-30 11:52 | XMS_ITS | Encounter Summary ---
Author Organization [facility] Address [address] [place] [address] Care Team Providers Care Carry All Driver Name Role Phone Kassie Reyna MD Primary Care Provider [phone]- [phone] Encounter Details Date Type Department Care Team (Late st Contact Info) Description 08/18/2023 Abstract [facility] [address] [facility] [address] [facility] [address] [place] [address] Taylor De León, MIKE Social History Tobacco Use Types Packs/Day Years Used Date Smoking Tobacco: Never Alcohol Use Standard Drinks/Week Comments No 0 (1 standard drink = 0.6 oz pur e alcohol) Overall Financial Resource Strain (CARDIA) Answe r Date Recorded How hard is it for you to pa y for the very basics like food, housing, medical care, and heating? Not hard at all 08/13/2022 PHQ-2 Answer Date Recorded PHQ-2 Total Score 0 06/27/2022 Hunger Vital Sign Answer Date Recorded Within the past 12 months, y ou worried that your food would run out before you got the money to buy more. Never true 08/14/19 23 Within the past 12 months, t he food you bought just didn't last and you didn't have money to get more. Never true 08/13/2022 PRAPARE - Transportation Answer Date Re corded In the past 12 months, has l ack of transportation kept you from medical appointments or from getting medications? No 07/31 In the past 12 months, has l ack of transportation kept you from meetings, work, or from getting things needed for daily living? No 08/13/2022 Housing Stability Answer Date Recorded What is your living situation today? I have a pedro place to live 08/13/2022 Interpersonal Safety Answer Date Record ed Is there anyone in your life that is hurting or threatening you in anyway? Not on file 08/13/2022 Physical Indicators of Abuse No evidence of phys ical abuse 08/13/2022 Comments No Sex and Gender Information Value Date Recorded Sex Assigned at Female 07/22/2024 11:05 PM EST Legal Sex Female 3:06 PM EDT Gender Identity Female 07/22/2024 11:05 PM EST Sexual Orientation Not on file documented as of this encounter Plan of Treatment Not on file documented as of this encounter Visit Diagnoses Not on filedocumented in this encounter Additional Health Concerns Infection Onset Date Last Indicated Resolved Time R/O Influenza 07/22/2024 07/22/2024 07/22/2024 4:4 1 PM EST R/O RSV 07/22/2024 07/22/2024 07/22/2024 4:41 PM EST R/O Respiratory Virus 07/22/2024 07/22/20242024 4:41 PM EST R/O COVID-19 07/22/2024 07/22/2024 07/22/2024 4:41 PM EST Influenza A 07/22/2024 07/22/2024 08/02/2024 1:13 PM EST Assessment Noted Time PHQ-9 Depression Total Score: 0 06/27/19 6:00 PM EST documented as of this encounter Care Teams Carry All Driver Relationship Specialty Start Date End Date Kassie Reyna MD [address] [facility] [address] [place] [address] PCP - General Internal Medicine 07/29/22 documented as of this encounter
--- OUTSIDE RECORDS SUMMARY | 2024-12-30 11:52 | XMS_ITS | Encounter Summary ---
Author Organization Formerly [facility] Address [address] [place] [address] Phone Care Team Providers Care Museum Security Chief Name Role Phone Kassie Reyna MD Primary Care Provider + Encounter Details Date Type Department Care Team (Late st Contact Info) Description 11/16/2024 Procedure Pass [facility] [address] [place] [address] Social History Tobacco Use Types Packs/Day Years Used Date Smoking Tobacco: Never Smokeless Tobacco: Never Alcohol Use Standard Drinks/Week Comments Not Currently 0 (1 standard drink = 0.6 oz pur e alcohol) Education Answer Date Recorded Are you interested in more education? Not on neeta e 09/28/2022 Are you concerned about learning? Not on file 09/28/2022 No 09/28/2022 No 09/28/2022 Food Answer Date Recorded Within the past 6 months we worried whether our food would run out before we got money to buy more. Never True 11/01/2024 Within the past 6 months the food we bought just didn't last and we didn't have enough money to get more. Never True Residential Stability Answer Date Recor ded What is your housing situation today? I have rocio sing 11/01/2024 How many times have you move d in the past 12 months? Zero (I did not move) 11/01/2024 Paying for Meds Answer Date Recorded Do you have trouble paying for medicines? No 11/01/2024 Paying Utility Bills Answer Date Record ed Do you have trouble paying your heating or elect ricity bill? No 11/01/2024 Transportation Answer Date Recorded Has the lack of transportati on kept you from medical appointments or from getting medications? No 11/01/2024 Digital Access Answer Date Recorded No 11/01/2024 Yes 11/01/2024 Do you have reliable internet access at home? Ye s 11/01/2024 Do you have a device (e.g., phone, tablet, computer) with a working camera? Yes 11/01/2024 Intimate Partner Violence Answer Date R ecorded Are you denied basic needs s uch as food, clothing, or medical care? No 11/01/2024 In the past 12 months have y ou been in a relationship with a person who hurts, threatens, or tries to control you? No 11/01/2024 Are you denied basic needs s uch as food, clothing, or medical care? No 11/01/2024 In the past 12 months have y ou been in a relationship with a person who hurts, threatens, or tries to control you? No 11/01/2024 Comments Unknown Sex and Gender Information Value Date Recorded Sex Assigned at Female 12/17/2021 12:37 PM EDT Legal Sex Female 12:22 PM EDT Gender Identity Female 12/17/2021 12:37 PM EDT Sexual Orientation Straight 12/17/2021 12 :37 PM EDT documented as of this encounter Plan of Treatment Upcoming Encounters Date Type Department Care Team (Late st Contact Info) Description 12/30/2024 1:45 PM EDT [place] [facility] [place] [address] [place] [address], [address] Floor, [address] [place] [address] Malick Bowles MD, DDS [address] [place] [id number] [email or web address] 03/22/2025 3:00 PM EDT Office Visit [facility] [address] [place] [address], [address] Floor, [address] [place] [address] Zuleika Adams MD [address] [place] [address] [email or web address] documented as of this encounter Goals Goal Patient Goal Type Associated Problems Recent Progress Patient-Stated? Author Safety Care Plan Acute Care Plan Italia Foster RN Note: Safety Care Plan Objectives Provide Ms. Morris with quality medical and nursing care. Allow Ms. Morris to discuss medical and safety concerns twice daily with nursing staff and providers in a patient- focused collaborative manner Use a team-based approach to improve interpersonal functioning, reduce team conflicts, and enhance treatment engagement and alliance. Maintain privacy and confidentiality for all patients and staff. Current Management Plan Unified team communication: Hold twice-daily multidisciplinary patient-medical team bedside meetings with Ms. Morris to address her medical concerns in a bundled approach. Morning meeting will occur after hemodialysis or around 9am on non-dialysis days Evening meeting will occur around 9p During meeting, Ms. Covarrubias will discuss all medical concerns with the multidisciplinary team and collaborative goal setting will occur Between meetings staff will encourage Ms. Morris to write down all concerns that occur during the day to be reviewed and discussed during these meetings. The exception being emergencies that will be addressed immediately by providers. Consistent limit setting: All staff will enforce clear, consistent boundaries regarding unit rules, privileges, and expectations. To protect, privacy and confidentiality, patients are not allowed to take phtographs or make audio/video recordings on hospital property, including cell phone pictures and video calls like [employer]. If patient is found to be recording staff please call security to reinforce hospital policy and assist with deletion of media. Staff are not to be going to the lobby to get patient's food delivery order from downstairs if she orders food delivery. She is allowed to have family bring her in food, however. Date of Last Review: 11-15-2024 Care Plan Endorsed or authored by: Italia Sheikh DNP, ANP-BC, CWS documented as of this encounter Visit Diagnoses Not on filedocumented in this encounter Care Teams Museum Security Chief Relationship Specialty Start Date End Date Kassie Reyna MD [address] [place] [address] PCP - General Internal Medicine 12/17/21 documented as of this encounter Additional Source Comments The information contained in this document represents components of the legal health record. It is not the complete legal health record.[facility]
--- OUTSIDE RECORDS SUMMARY | 2024-12-30 11:52 | XMS_ITS | Encounter Summary ---
Author Organization [facility] Address [address] [place] [address] Care Team Providers Care Business Account Specialist Name Role Phone Kassie Reyna MD Primary Care Provider [phone] Dialysis, [facility] Unavailable [phone] Lana Quintana MD Unavailable Gómez Whitley MD Unavailable [phone] Encounter Details Date Type Department Care Team (Late st Contact Info) Description 06/25/2023 Mobile [facility] Department of Nephrology [address] [phone] Lana Quintana MD [address] [place] [address] Vitamin D deficiency (Primary Dx) Social History Tobacco Use Types Packs/Day Years Used Date Smoking Tobacco: Never Smokeless Tobacco: Never AUDIT-C Answer Date Recorded Q1: How often do you have a drink containing alcohol? Never 06/12/2022 Q2: How many drinks containi ng alcohol do you have on a typical day when you are drinking? Patient does not drink Q3: How often do you have si x or more drinks on one occasion? Never 06/12/2022 Comments Unknown Sex and Gender Information Value Date Recorded Sex Assigned at Female 07/15/2023 2:01 PM EST Legal Sex Female 5:03 PM EDT Gender Identity Female 07/15/2023 2:01 PM EST Sexual Orientation Heterosexual (straight) 07/15 2:01 PM EST documented as of this encounter Plan of Treatment Not on file documented as of this encounter Visit Diagnoses Diagnosis Vitamin D deficiency- Primary documented in this encounter Care Teams Business Account Specialist Relationship Specialty Start Date End Date Kassie Reyna MD [address] [place] [address] PCP - General Internal Medicine 12/24/21 Dialysis, [facility] [address] [place] [address] Dialysis Unit 09/05/22 Lana Quintana MD [address] [place] [address] Physician Nephrology 09/11/22 Gómez Whitley MD [address] [place] [address] Surgery, General 10/25/22 documented as of this encounter
--- OUTSIDE RECORDS SUMMARY | 2024-12-30 11:52 | XMS_ITS | Patient Health Record ---
Author Organization [facility] Address [address] [place] [phone] Care Team Providers Care Supervisor Paper Testing Name Role Phone Self, Self Unavailable Unavailable Allergies Allergen (clinical drug ingredient) Drug/Non Drug Allergy documented on EMR Reaction Allergy Type Onset Date Status epoetin beta Epoetin Beta (uncoded) Unknown Allergy Active Substance with penicillin structure and antibacterial mechanism of action (substance) penicillins (uncoded) Unknown Allergy Active amlodipine Amlodipine Besylate Unknown Drug Allergy Active gabapentin Gabapentin Unknown Drug Allergy Activ e ibuprofen Ibuprofen Unknown Drug Allergy Active lisinopril Lisinopril Unknown Drug Allergy Activ e PredniSONE Unknown Drug Allergy Active methocarbamol Robaxin Unknown Drug Allergy Act grecia tramadol Tramadol HCl Unknown Drug Allergy Acti ve Reason For Referral No Information Medications Medication SIG (Take, Route, Frequency, Duration) Notes Start Date End Date Status hydrALAZINE HCl 100 MG 1 tablet with sarah d Orally twice a day Active Auryxia 1 GM 210 MG(Fe) 1 tablets with meals Orally Three times a day for 30 day(s) Active Labetalol HCl 300 MG 1 tablet Orally Twice a day Active Keppra 250 MG 1 tablet Orally daily Takes on dialysis days Active oxyCODONE HCl 10 MG 1 tablet as needed Orally QID for 30 days 09/06/2019 Active Keppra 500 MG 1 tablet Orally Daily Active Cyclobenzaprine HCl 10 MG 1 tablet 1 to 2 hours before bedtime Orally Once a day Active oxyCODONE HCl 10 MG 1 tablet as needed Orally every 6 hrs for 30 days Please have script mailed to patient. Thx! 12/31/2019 Active Social History Alcohol Screen (Audit-C) Question Answer Notes Did you have a drink containing alcohol in the p ast year? No Points 0 Interpretation Negative Problems Problem Type SNOMED Code ICD Code Onset Dates Problem Status W/U Status Risk Notes Problem 74592755 Other chronic pain (G89.29) Active confirmed Problem 799000893 Chronic pain syndrome (G89.4) Active confirmed Problem 991967653 Low back pain (M54.5) Active confirmed Problem 16479138 End stage chronic kidney disease (N18.6) Active confirmed Plan Of Treatment Pending Test Test Name Order Date UDT - POC 11/01/2019 Insurance Providers Payer Name Payer Address Payer Phone Subscriber Number Group Number Insured Name Patient Relationship to Insured Coverage Start Date Coverage End Date Medicare-[place] Medicare [address] [place] [address] [id number] Flavio Morris Self - patient is the insured [facility] [address] [address] [place] [address] [id number] Flavio Morris Self - patient is the insured Medical (General) History Medical History History ICD Code anxiety Kidney Disease seizures allergies Surgical History Surgery Date(Month/Year) section DNC Angiogram fistula repair parathyroidectomy
--- OUTSIDE RECORDS SUMMARY | 2024-12-30 11:52 | XMS_ITS | Clinical Summary ---
Author Organization [facility] Address [facility] [place] [address] Care Team Providers Care Clinic Director Name Role Phone Donavon Aguirre MD Primary Care Provider Unavail able Allergies Active Allergy Reactions Criticality Noted Date Comments Ibuprofen Other (See Comments) High 06/12/2017 ESRD Morphine Other (See Comments) Low 06/12/2017 Patient does not remember reaction but states is wasn't an allergy. Penicillins Rash Medium 06/12/2017 Medications levETIRAcetam (KEPPRA) 250 mg Tablet Take 250 mg by mouth three times a week. Take immediately after hemodialysis. Active levETIRAcetam (KEPPRA) 500 mg Tablet Take 500 mg by mouth daily. Active NIFEdipine (PROCARDIA XL) 90 mg Tablet Extended Rel 24 hr Take 90 mg by mouth daily. Active oxyCODONE (ROXICODONE) 5 mg Tablet Take 5 mg by mouth every 6 hours as needed for Pain. Active calciTRIol (ROCALTROL) 0.5 mcg Capsule Take 1 mcg by mouth daily. Active calcium carbonate (TUMS) 200 mg calcium (500 mg) Tablet, Chewable Take 2 tablets by mouth daily. Active cholecalciferol , Vitamin D3, 50,000 unit Capsule Take 1 capsule by mouth once a week. On Wednesdays. Active ferric citrate 210 mg iron Tablet Take 630 mg by mouth 3 times daily. Active labetalol (NORMODYNE) 300 mg Tablet Take 600 mg by mouth 2 times daily. Active clindamycin (CLEOCIN) 150 mg Capsule Take 150 mg by mouth 4 times daily. For a total of 7 days - started on 06/10/17. Active Active Problems Problem Noted Date Diagnosed Date Hypertensive kidney disease with ESRD (end-stage renal disease) 06/23/2017 Overview (06/23/2017): bx proven Pre-transplant evaluation fo r ESRD (end stage renal disease) 06/23/2017 Immunizations Immunization Administration Dates Next Due Hepatitis B Adult (Engerix-B, Recombivax) 2000 Influenza Trivalent, Preservative Free 6 Pneumococcal 23-Valent Polysaccharide (Pneumovax 23) 06/06/2015,05/05/2015 Tuberculin Skin Test, PPD 08/24/2015 Social History Tobacco Use Types Packs/Day Years Used Date Smoking Tobacco: Never Assessed Comments Unknown Sex and Gender Information Value Date Recorded Sex Assigned at Not on file Legal Sex Female 12:29 PM EST Gender Identity Not on file Sexual Orientation Not on file Last Filed Vital Signs Vital Sign Reading Time Taken Comments Blood Pressure 146/98 01/27/2018 9:17 AM EDT Pulse 78 01/27/2018 9:17 AM EDT Temperature 36.6 C (97.8 F) 01/27/2018 9:17 AM EDT Respiratory Rate 16 01/27/2018 9:17 AM EDT Oxygen Saturation 99% 01/27/2018 9:17 AM EDT Inhaled Oxygen Concentration - - Weight 69.3 kg (152 lb 12.8 oz) 01/27/2018 9:17 AM EDT Height 163.8 cm (5' 4.5 ) 01/27/2018 9:17 AM EDT Body Mass Index 25.82 01/27/2018 9:17 AM EDT Plan of Treatment Health Maintenance Due Date Last Done Comments Tetanus/Diphtheria/Pertussis Vaccines (1 - Tdap) 2005 HPV test 2016 PAP Smear 2016 Covid-19 Vaccine ( season) 2024 Influenza (Flu) vaccine (1 o f 1 - Influenza standard series) 01/31/2025 04/09/2016 HIV screen Completed 06/12/2017 Hepatitis C Screening Completed 06/12/2017, 018 Procedures Procedure Name Priority Date/Time Associated Diagnosis Comments HIV SCREEN, 4TH GENERATION ([facility]/CGP/APD/NLH)PE RFORMABLE Routine 06/12/2017 3:52 PM EST End stage renal disease Pre-transplant evaluation for kidney transplant HEPATITIS C ANTIBODY Routine 06/12/2017 3:52 PM EST End stage renal disease Pre-transplant evaluation for kidney transplant from Last 3 Months or Most Recently Relevant to Health Maintenance Results * Hepatitis C Antibody (06/12/2017 3:52 PM EST) Hepatitis C Antibody Negative Negative [facility] Blood specimen (specimen) 06/12/2017 3:52 PM EST 06/12/2017 4:04 PM EST Narrative Resulting Agency Comment Spec In Lab Waldemar Nichols MD CHEMISTRY ORDERABLES Samira l Result Performing Organization Address [facility] Co de Phone Number [facility] [place] [address] * HIV Screen, 4th Generation (06/12/2017 3:52 PM EST) HIV Ab/Ag Screen Negative Negative [facility] Comment: This 4th Generation HIV test screens for the presence of the HIV-1 p24 antigen as well as antibodies reactive against HIV-1 and HIV-2. A negative screen does not rule out an acute HIV infection. If acute HIV infection is suspected, testing should be repeated in 2 - 3 weeks or HIV nucleic acid testing performed. Blood specimen (specimen) 06/12/2017 3:52 PM EST 06/12/2017 4:04 PM EST Narrative Resulting Agency Comment Spec In Lab Waldemar Nichols MD CHEMISTRY ORDERABLES Samira l Result Performing Organization Address City/[facility]/ZIP Co de Phone Number [facility] [place] [address] from Last 3 Months or Most Recently Relevant to Health Maintenance Insurance MEDICARE Care Teams Clinic Director Relationship Specialty Start Date End Date Donavon Aguirre MD PCP - General General Internal Medicine 06/06/17
--- OUTSIDE RECORDS SUMMARY | 2024-12-30 11:52 | XMS_ITS | Encounter Summary ---
Author Organization [facility], Address [address] [place] [address] Phone Care Team Providers Care Auto Service Representative Name Role Phone Rashid Helton MD Primary Care Provider [phone] Encounter Details Date Type Department Care Team (Late st Contact Info) Description 01/10/2022 Documentation Only [facility], [address] [place] [id number] Malick Arechiga [address] [place] [address] Social History Tobacco Use Types Packs/Day Years Used Date Smoking Tobacco: Never Alcohol Use Standard Drinks/Week Comments No 0 (1 standard drink = 0.6 oz pure alcohol) Alcoholic Drinks/day: Occasional social drink Comments Unknown Sex and Gender Information Value Date Recorded Sex Assigned at Not on file Legal Sex Female 4:35 PM EST Gender Identity Not on file Sexual Orientation Not on file documented as of this encounter Plan of Treatment Not on file documented as of this encounter Visit Diagnoses Not on filedocumented in this encounter Care Teams Auto Service Representative Relationship Specialty Start Date End Date Rashid Helton MD [facility] [address] [place] [address] PCP - General 06/12/20 documented as of this encounter
[2024-12-30] MEDS: oxyCODONE HCl Immed Release 15 MG TABLET PO (11:55)
--- NOTE | 2024-12-30 12:16 | PC.NURSE ---
Dr. Broussard and Natalia HOGAN currently at bedside attempting to establish IV access.
[2024-12-30 12:22] LABS: Alanine Aminotransferase 28 U/L (0-31); Albumin Level 4.2 g/dL (3.5-5.0); Alkaline Phosphatase 129 U/L (39-117); Anion Gap 25 (12-20); Aspartate Amino Transferase 28 U/L (5-31); Blood Urea Nitrogen 107 mg/dL (9-16); Calcium 6.3 mg/dL (8.4-10.2); Carbon Dioxide 20 mmol/L (22-29); Chloride 101 mmol/L (96-108); Creatinine Clr Calc Pharmacy 5.1; Estimated Glomerular Filt Rate 3; Magnesium 2.5 mg/dL (1.6-2.6); Potassium 7.6 mmol/L (3.3-5.1); Sodium 138 mmol/L (135-145); Total Protein 7.2 g/dL (6.5-8.0)
[2024-12-30] MEDS: Calcium Gluconate/NaCl,Iso-Osm 2 GM/100 ML PLAST..BAG IV (12:26)
--- NOTE | 2024-12-30 12:31 | PC.NURSE ---
Patient resistive to IV insulin, states in the past she has arnoldo 25 people standing over me after I have passed out . Natalia called to bedside, patient demanding applesauce and chanda nikhil before any medications administered, food/beverages given. Provider okay'd food and to start calcium now, administer insulin in a few minutes. Patient interrupting staff before any explanation started, insisting on IV pain meds.
[2024-12-30 13:21] LABS: Glucose, Whole Blood 188 mg/dL (60-115)
--- NOTE | 2024-12-30 13:25 | P.HPHOSP_ITS ---
History of Present Illness Date of Service: 12/30/24 Chief Complaint: Missed dialysis Chief Complaint: Missed dialysis Patient is a 39yo F with PMH of?ESRD HD TuThSat secondary to?hypertensive?disease and eclampsi,, pericardial effusion requiring drain in past, CHF.?ILD,?pulmonary HTN, chronic respiratory failure on home O2 at 2.5 L,?severe tricuspid regurgitation,?chronic back pain,?seizure disorder, hyperparathyroidism, and GERD?who presented to the [place] at [facility] [place] on [place]?after missing dialysis Thursday 12/28.?Reports her last HD?session was on Monday 12/25 and there was?an infiltration at the time?which she feels was secondary to being stuck more?proximally?than usual. She?did still have her full dialysis session on?Friday.? She was seen by Vascular surgery and her fistula was deemed functional and she was to follow up with her usual dialysis site today. She has been experiencing sob, chest discomfort, head and generaliez body ache nad has had periods black consistent with her seizure. Lab work show potassium of 7.6, potassium was 5.8 in [facility] yesterday. An arrangment is been made by Nephrology for dialysis. Of note: Surgical history: LUE AV fistula s/p multiple fistulogram's and fistula plasty procedures, fistula narrowing, pseudoaneurysm resection, , parathyroidectomy. Treated at [facility] August/September 2024, treated at [facility] October/November 2024 for fistula care. Dialysis: [facility] PMHx per [facility] Record Anemia due to chronic kidney disease Asthma Chronic diastolic heart failure Chronic hypoxic respiratory failure Chronic kidney disease-mineral and bone disorder Chronic pain syndrome Chronic respiratory failure with hypoxia on 2.5L via NC Cirrhosis Depressed mood Dysphagia Elevated troponin ESRD on hemodialysis TTS GERD (gastroesophageal reflux disease) Hemodialysis patient History of gastric ulcer Hyperlipidemia Hyperparathyroidism Hypertension Hypertensive urgency Hypocalcemia Moderate persistent asthma Pericardial effusion Saphenous vein occlusion, right Seizure disorder Tricuspid regurgitation UTI (urinary tract infection) Review of Systems 2 Review of Systems: Gen: no fever Resp: no sob, no cough CV: no chest, no JENKINS, no leg edema GI: No n/v, no abd pain Neuro: No confusion PMFSH Social History Household Members: Significant Other and Children Housing: House Do you presently have visiting nurse or other home services: Yes (After hospital stays) Patient Tobacco Use Status: Never used Tobacco service: No Meds Allergies Allergy/AdvReac Type Severity Reaction Status Date / Time ANNA Inhibitors Allergy Unknown Verified 12/30/24 09:10 adhesive tape Allergy Unknown Verified 12/30/24 09:10 amlodipine Allergy Unknown Verified 12/30/24 09:10 angiotensin II acetate, human Allergy Itching Verified 12/30/24 09:10 Beta-Blockers Allergy Itching Verified 12/30/24 09:10 (Beta-Adrenergic Bloc cinacalcet (From Sensipar) Allergy Unknown Verified 12/30/24 09:10 clonidine Allergy Anaphylaxis Verified 12/30/24 09:10 doxazosin Allergy Anaphylaxis Verified 12/30/24 09:10 epoetin michael-epbx (From Allergy Unknown Verified 12/30/24 09:10 Retacrit) epoetin beta Allergy Unknown Verified 12/30/24 09:10 furosemide Allergy Unknown Verified 12/30/24 09:10 gabapentin Allergy Anaphylaxis Verified 12/30/24 09:10 heparin Allergy Unknown Verified 12/30/24 09:10 hydralazine Allergy Anaphylaxis Verified 12/30/24 09:10 hydroxyzine Allergy Unknown Verified 12/30/24 09:10 ibuprofen (From Motrin) Allergy Unknown Verified 12/30/24 09:10 isosorbide Allergy Unknown Verified 12/30/24 09:10 labetalol Allergy Eye Verified 12/30/24 09:10 Swelling latex Allergy Itching Verified 12/30/24 09:10 levofloxacin Allergy Itching Verified 12/30/24 09:10 lisinopril Allergy Itching Verified 12/30/24 09:10 losartan Allergy Unknown Verified 12/30/24 09:10 methocarbamol Allergy Unknown Verified 12/30/24 09:10 metoprolol Allergy Unknown Verified 12/30/24 09:10 Penicillins Allergy Hives Verified 12/30/24 09:10 prednisone Allergy Unknown Verified 12/30/24 09:10 spironolactone Allergy Itching Verified 12/30/24 09:10 tramadol Allergy Unknown Verified 12/30/24 09:10 Active Medications: Current Medications Calcium Gluconate (Calcium Gluconate) 2 gm in 100 mls @ 50 mls/hr IV ONCE ONE Stop: 12/30/24 14:20 Last Admin: 12/30/24 12:26 Dose: 50 mls/hr Home Medications ?Medication ?Instructions ?Recorded ?Confirmed ?Last Taken ?Type carvedilol 25 mg tablet 25 mg PO BID 12/30/2412/30/24 History cholecalciferol (vitamin D3) 50 50 mcg PO DAILY 12/30/24 12/30/24 History mcg (2,000 unit) tablet (Vitamin D3) levetiracetam 250 mg tablet 250 mg PO TUTA@1645 12/0212/30/24 12/28/24 History levetiracetam 500 mg tablet 500 mg PO DAILY 12/30/24 0 12/30/24 12/30/24 History oxycodone 15 mg tablet 15 mg PO Q4H PRN Pain 12/30/24 12/30/24 History pantoprazole 40 mg tablet,delayed 40 mg PO DAILY@0630 12/30/24 12/30/24 12/30/24 History release sodium zirconium cyclosilicate 10 10 g PO TUTHSA@1645 12/30/24 12/30/24 12/30/24 History gram oral powder packet (Lokelma) sucralfate 1 gram tablet 1 g PO DAILY PRN Stomach Ups et 12/30/24 12/30/24 12/30/24 History Physical Exam 2 Vital Signs and Narrative: Vital Signs: Last Vital Signs Temp 98.6 F 12/30/24 12:40 Pulse 68 12/30/24 12:40 Resp 15 12/30/24 12:40 BP 178/89 H 12/30/24 12:40 Pulse Ox 98 12/30/24 12:40 O2 Del Method Nasal Cannula 12/30/24 12:40 O2 Flow Rate 3 12/30/24 12:40 BMI result Body Mass Index 24.4 Const: Other: Constitutional: Alert, in no distress. Mental Status: Oriented to person, place and time. Head/Neck:?Normocephalic, atraumatic.? Respiratory: Normal respiratory rate and effort. ? Cardiovascular: Regular rate and rhythm. ? Skin: Skin is warm and dry Musculoskeletal: No edema. No gross deformities. Neuro:?A&O x 4. Moves all extremities spontaneously. Vascular:?LUE AVF with palpable thrill, nontender to palpation, aneurysmal?changes to the site Results Labs 12/31/24 06:55 12/31/24 06:55 Labs: Laboratory Results - last 24 hr 12/30/24 12/30/24 12/30/24 10:26 11:53 12:56 MCV 94.7 MCH 31.3 MCHC 33.0 RDW 15.2 Plt Count 119 L MPV 10.2 Immature Gran % (Auto) 0.5 H Neut % (Auto) 78.2 H Lymph % (Auto) 8.8 L Nicholas % (Auto) 6.2 Eos % (Auto) 6.0 H Baso % (Auto) 0.3 Lymph # (Auto) 0.5 L Nicholas # (Auto) 0.4 Eos # (Auto) 0.4 Baso # (Auto) 0.0 Abs Immat Gran (auto) 0.03 Absolute Neuts (auto) 4.7 Absolute Nucleated RBC 0.000 Nucleated RBC % (auto) 0.0 Anion Gap 25 H Estim Creat Clear Calc 5.1 Estimated GFR 3 POC Glucose 188 H Random Glucose 102 Calcium 6.3 L Phosphorus 9.1 H Magnesium 2.5 Total Bilirubin 0.5 AST 28 ALT 28 Alkaline Phosphatase 129 H B-Natriuretic Peptide 3706 H Total Protein 7.2 Albumin 4.2 Imaging Radiologist's Impressions: Impressions Chest X-Ray 12/30/24 10:03 IMPRESSION: 1. Moderate cardiomegaly. 2. No active pulmonary disease. Electronically signed by: Faizan [facility] MD 12/30/2024 11:18 AM EDT RP Assessment and Plan (1) ESRD (end stage renal disease) on dialysis: Status: Acute Plan 39/F with ESRD here for missing dialysis and found to have hyperkalemia and reportedy had seizure ESRD HD TTS HyperKalemia Urgent dialysis today Nephrology consul Chest pain/SOB relaetd to missing dialysis/ fluid overloadd expect improvementin aft er dialysis Hyperkalemia treaed with calcium gluconate, insulin and Lokelma Dialysis for ultimate treatment Seizure d/o continue Keppra Chronic Restp failure d/t chf, pulm HTN continue O2 HTN resume home meds after med rec Full code DVT prophylaxis: early ambulation Quality Stroke Does the patient have a stroke diagnosis?: No VTE Prior VTE?: No VTE Risk Level:: Medical - moderate - high VTE Device Contraindication: N/A - Device Ordered VTE Drug Contraindication: Treatment Not Indicated
--- NOTE | 2024-12-30 13:28 | PC.NURSE ---
Pt tp be transported to dialysis monitored by EDT transport [facility]
--- NOTE | 2024-12-30 14:38 | PM.CNGS ---
History of Present Illness Consult details Consult date: 12/30/24 Reason for consult: other (ESRD) Narrative: Complex 31-year-old female with a history of end-stage renal disease who has been managed by Dr. Arechiga at [facility] has had multiple left upper extremity fistula revision now presents for vascular evaluation regarding her left upper extremity fistula. She reports her last hemodialysis session was on 12/26. She had reported some pain and swelling and questionable infiltration of the fistula site. I had an extensive discussion with her about original placement and multiple revisions. It appears it was originally placed at [facility]. It was subsequently revised at [facility] and eventually even revised in [place]. At the current time reports some shoulder discomfort and pain but overall fistula appears to be functioning well. She has been on transplant list. Now presents for evaluation. Review of Systems Review of Systems: Yes all other systems are reviewed and are negative Constitutional: Constitutional: Reports no additional constitutional complaints ENT: Reports Normal hearing present Cardiovascular: Cardiovascular: Denies chest pain, Denies chest pain at rest, Denies chest pain with activity and Denies pedal edema Respiratory: Respiratory: Denies cough Gastrointestinal: Gastrointestinal: Denies abdominal pain Musculoskeletal: Musculoskeletal: Denies abnormal gait, Denies muscle cramps and Denies radiating pain into limb Integumentary/Breasts: Skin/Breast: Denies skin ulcer and Denies wounds Neurologic: Reports Normal hearing present and Denies abnormal gait Psychiatric: Psychiatric: Reports no additional psychiatric complaints PMFSH Social History Social History Patient Tobacco Use Status: Never used Tobacco Smoked in Last 30 Days: No Use of substances other than those prescribed or required for medical reasons: No Advance Directives: No Advance Directives Information Provided: Yes Do you have a plan to hurt others: No Plan Nutrition Risks: No Nutritional Risk Patient : No Meds Allergies Allergy/AdvReac Type Severity Reaction Status Date / Time ANNA Inhibitors Allergy Unknown Verified 12/30/24 09:10 adhesive tape Allergy Unknown Verified 12/30/24 09:10 amlodipine Allergy Unknown Verified 12/30/24 09:10 angiotensin II acetate, human Allergy Itching Verified 12/30/24 09:10 Beta-Blockers Allergy Itching Verified 12/30/24 09:10 (Beta-Adrenergic Bloc cinacalcet (From Sensipar) Allergy Unknown Verified 12/30/24 09:10 clonidine Allergy Anaphylaxis Verified 12/30/24 09:10 doxazosin Allergy Anaphylaxis Verified 12/30/24 09:10 epoetin michael-epbx (From Allergy Unknown Verified 12/30/24 09:10 Retacrit) epoetin beta Allergy Unknown Verified 12/30/24 09:10 furosemide Allergy Unknown Verified 12/30/24 09:10 gabapentin Allergy Anaphylaxis Verified 12/30/24 09:10 heparin Allergy Unknown Verified 12/30/24 09:10 hydralazine Allergy Anaphylaxis Verified 12/30/24 09:10 hydroxyzine Allergy Unknown Verified 12/30/24 09:10 ibuprofen (From Motrin) Allergy Unknown Verified 12/30/24 09:10 isosorbide Allergy Unknown Verified 12/30/24 09:10 labetalol Allergy Eye Verified 12/30/24 09:10 Swelling latex Allergy Itching Verified 12/30/24 09:10 levofloxacin Allergy Itching Verified 12/30/24 09:10 lisinopril Allergy Itching Verified 12/30/24 09:10 losartan Allergy Unknown Verified 12/30/24 09:10 methocarbamol Allergy Unknown Verified 12/30/24 09:10 metoprolol Allergy Unknown Verified 12/30/24 09:10 Penicillins Allergy Hives Verified 12/30/24 09:10 prednisone Allergy Unknown Verified 12/30/24 09:10 spironolactone Allergy Itching Verified 12/30/24 09:10 tramadol Allergy Unknown Verified 12/30/24 09:10 Active Medications: Current Medications Diphenhydramine HCl (Diphenhydramine Hcl 50 Mg/Ml Vial) 50 mg IVPUSH ONCE ONE Stop: 01/01/25 08:01 Home Medications ?Medication ?Instructions ?Recorded ?Confirmed ?Last Taken ?Type carvedilol 25 mg tablet 25 mg PO BID 12/30/24 Unknown History hydroxyzine HCl 10 mg tablet 10 - 20 mg PO anxiety 12/30/24 Unknown History oxycodone 15 mg tablet PO 12/30/24 Unknown History pantoprazole 40 mg tablet,delayed 40 mg PO DAILY@0630 12/30/24 Unknown History release sildenafil (pulm.hypertension) 20 20 mg PO TID 12/30/24 Unknown History mg tablet sodium zirconium cyclosilicate 10 10 g PO 3XW 12/30/24 Unknown History gram oral powder packet (Lokelma) valsartan 80 mg tablet 80 mg PO DAILY 12/30/24 Unknown History Physical Exam Vital Signs: Vital Signs: Last Vital Signs Temp 98.6 F 12/30/24 12:40 Pulse 68 12/30/24 12:40 Resp 15 12/30/24 12:40 BP 178/89 H 12/30/24 12:40 Pulse Ox 98 12/30/24 12:40 O2 Del Method Nasal Cannula 12/30/24 12:40 O2 Flow Rate 3 12/30/24 12:40 BMI result Body Mass Index 24.4 Const: General: cooperative, healthy appearing and comfortable Orientation/consciousness: oriented to person, oriented to place and oriented to time HEENT: Head: Yes normal to inspection Neck: Neck: Yes normal visual inspection Carotids: no bruits Chest: Chest palpation & inspection: normal inspection of the chest Resp: Effort & Inspection: normal respiratory effort and able to speak in complete sentences Auscultation: clear to auscultation bilaterally, no crackles, no rales, no rhonchi and no wheezes Cardio: Rate: regular rate Rhythm: regular rhythm Heart sounds: S1 normal heart sound present and S2 normal heart sound present Bruits: no carotid bruits Peripheral pulses: Peripheral pulses 2+ throughout GI: Inspection: Yes normal to inspection Skin: Wounds: no wounds Hair: normal Neuro: General: oriented to person, oriented to place and oriented to time Cranial nerves: Yes CN's II-XII intact bilaterally and Yes Normal hearing present Cognition (Neuro): normal cognition Motor exam (neuro): 5/5 motor strength present throughout Extrem: Other: Left upper extremity excellent thrill and bruit. General: No clubbing, No cyanosis and No edema Psych: Appearance: grossly normal Mental Status: mental status grossly normal Speech and movement: Normal speech and movement present Results Labs 12/30/24 10:26 12/30/24 11:53 Labs: Abnormal lab results 12/30/24 12/30/24 12/30/24 Range/Units 10:26 11:53 12:56 RBC 2.43 L (4.20-5.50) X10*6/uL Hgb 7.6 L (12.0-16.0) g/dl Hct 23.0 L (37.0-47.0) % Plt Count 119 L (160-400) X10*3/uL Immature Gran % (Auto) 0.5 H (0.0-0.4) % Neut % (Auto) 78.2 H (45-73) % Lymph % (Auto) 8.8 L (20-40) % Eos % (Auto) 6.0 H (0-4) % Lymph # (Auto) 0.5 L (1.2-4.9) X10*3/uL Potassium 7.6 H* (3.3-5.1) mmol/L Carbon Dioxide 20 L (22-29) mmol/L Anion Gap 25 H (12-20) BUN 107 H (9-16) mg/dL Creatinine 13.37 H* (0.5-1.4) mg/dL POC Glucose 188 H (60-115) mg/dL Calcium 6.3 L (8.4-10.2) mg/dL Phosphorus 9.1 H (2.7-4.5) mg/dL Alkaline Phosphatase 129 H (39-117) U/L B-Natriuretic Peptide 3706 H (<100) pg/mL Short CBC 12/30/24 Range/Units 10:26 WBC 6.0 (4.8-10.8) X10*3/uL Hgb 7.6 L (12.0-16.0) g/dl Hct 23.0 L (37.0-47.0) % Plt Count 119 L (160-400) X10*3/uL BMP 12/30/24 11:53 Sodium 138 Potassium 7.6 H* Chloride 101 Carbon Dioxide 20 L BUN 107 H Creatinine 13.37 H* Calcium 6.3 L Liver Function 12/30/24 Range/Units 11:53 Total Bilirubin 0.5 (0.0-1.0) mg/dL AST 28 (5-31) U/L ALT 28 (0-31) U/L Alkaline Phosphatase 129 H (39-117) U/L Albumin 4.2 (3.5-5.0) g/dL All other labs normal. Assessment and Plan (1) ESRD (end stage renal disease) on dialysis: Status: Acute Plan In short fistula appears to be stable. I did discuss this with the hemodialysis nurse and it appears to be doing well. She will be I placed on dialysis later today to better control her potassium. I do think it is functioning well and would continue to use as long as possible. We will peripherally follow with you. Thank you for allowing us to assist in her care. If there are any questions or concerns please do not hesitate to contact us. Procedures Date of Service Date of Service: 12/30/24
--- NOTE | 2024-12-30 19:07 | PHA.MEDREC ---
Addendum entered by Rima Dunlap RPh 12/30/24 19:19: Reviewed by [facility] Original Note: Pharmacy Consult ? Medication Reconciliation Pharmacy has completed the medication reconciliation. Spoke with pt and she confirmed her medications. Per pt, she never started the Hydroxyzine; pt allergic to it, she stopped the Sildenafil; Pt throat started closing and she developed hives when she started, Valsartan; pt states she took it for about 3 months and stopped it since it was dropping her BP too much. Pt still taking Sucralfate 1gm tabs as needed for stomach upsets, Levetiracetam; 500mg QD and 250mg TUTHSA within an hour of finishing her Dialysis and Lokelma on after her dialysis appt.
[2024-12-31] VITALS (7 sets, daily range): BP systolic 158–196; BP diastolic 72–95; PULSE 60–82; RESP 16–20; TEMP 36.4–37.2; O2SAT 94–100
[2024-12-31 07:30] LABS: Hematocrit 23.4 % (37.0-47.0); Hemoglobin 7.6 g/dl (12.0-16.0); Mean Corpuscular HGB Conc 32.5 g/dl (31.0-35.0); Mean Corpuscular Hemoglobin 30.9 pg (27.0-33.0); Mean Corpuscular Volume 95.1 fL (80.0-98.0); NRBC Abs Auto 0.000 X10*3/uL (0.0-0.012); NRBC Pct Auto 0.0 /100WBC (0.0-0.2); Platelet Count 110 X10*3/uL (160-400); Red Blood Count 2.46 X10*6/uL (4.20-5.50); White Blood Count 5.0 X10*3/uL (4.8-10.8)
[2024-12-31 07:47] LABS: Parathyroid Hormone Intact 70.8 pg/mL (8.7-77.1)
[2024-12-31 08:23] LABS: Anion Gap 17 (12-20); Blood Urea Nitrogen 49 mg/dL (9-16); Calcium 7.4 mg/dL (8.4-10.2); Carbon Dioxide 28 mmol/L (22-29); Chloride 98 mmol/L (96-108); Creatinine Clr Calc Pharmacy 8.8; Estimated Glomerular Filt Rate 6; Potassium 4.4 mmol/L (3.3-5.1); Sodium 139 mmol/L (135-145)
--- NOTE | 2024-12-31 09:56 | MHC.CM.PN ---
IMM 12/31/24, Pt. 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 She goes to HD at [address] [place] [address]. She can arrange transport home at [place], DCP: home, resume home care services and HD. CM to follow for [place] needs.
--- NOTE | 2024-12-31 12:10 | P.PNNP_ITS ---
Subjective Subjective Date of Service: 12/31/24 Interval history: Following for management of ESRD on HD. She is here after missing x1 dialysis session, as well as chest pain, shortness of breath and seizure episode while in ED. SHe states today she has chronic pain in her back and fistula, as well as a headache. She states she is worried about her seizures and why they are more frequent within the last month. Otherwise she denies complaints/concerns. She received dialysis yesterday. Physical Exam 2 Vital Signs: Vital Signs: Last Vital Signs Temp 97.6 F 12/31/24 10:55 Pulse 66 12/31/24 10:55 Resp 20 12/31/24 10:55 BP 160/82 H 12/31/24 10:55 Pulse Ox 100 12/31/24 10:55 O2 Del Method Nasal Cannula 12/31/24 10:55 O2 Flow Rate 3 12/31/24 10:55 BMI result Body Mass Index 24.3 Const: General: no acute distress, alert and awake Resp: Effort & Inspection: normal respiratory effort and able to speak in complete sentences Auscultation: clear to auscultation bilaterally Cardio: Rate: regular rate Rhythm: abnormal rhythm Heart sounds: S1 normal heart sound present and S2 normal heart sound present GI: Palpation (GI): Soft to palpation and nontender Skin: Rashes: no rashes Extrem: General: No edema Objective Data Labs 12/31/24 06:55 12/31/24 06:55 Labs: Laboratory Results - last 24 hr 12/30/24 12/30/24 12/31/24 11:53 12:56 06:55 WBC 5.0 RBC 2.46 L Hgb 7.6 L Hct 23.4 L MCV 95.1 MCH 30.9 MCHC 32.5 RDW 14.9 Plt Count 110 L MPV 10.1 Absolute Nucleated RBC 0.000 Nucleated RBC % (auto) 0.0 Sodium 138 139 Potassium 7.6 H* 4.4 D Chloride 101 98 Carbon Dioxide 20 L 28 Anion Gap 25 H 17 BUN 107 H 49 H Creatinine 13.37 H* 7.75 H* Estim Creat Clear Calc 5.1 8.8 Estimated GFR 3 6 POC Glucose 188 H Random Glucose 102 109 Calcium 6.3 L 7.4 L D Phosphorus 9.1 H 5.9 H Magnesium 2.5 Total Bilirubin 0.5 AST 28 ALT 28 Alkaline Phosphatase 129 H Total Protein 7.2 Albumin 4.2 PTH Intact 70.8 Procedures Date of Service Date of Service: 12/31/24 Assessment & Plan Assessment and plan (1) ESRD (end stage renal disease) on dialysis: Status: Acute Plan ESRD on HD TTS, last dialyzed 12/26, missed x1 session. LUE fistula- +thrill, bruit. consult placed to vascular for malfunctioning fistula in lower arm. will remove fluid to dry weight while here, patient states dry weight is 68kg H&H is stable at 7.6 & 23- pt has listed allergy to retacrit, will hold off on epo for now. potassium 4.4 Phosphorous 5.9- low phos diet. pt does not appear to be on outpatient binders. Recommend low potassium, low sodium, low phosphorous diet. Fluid restriction 1.5L/24hours daily electrolyte and renal function studies regualr blood pressure checks, daily weights, I&O monitoring from a renal standpoint, patient is ok for discharge and to continue outpatient dialysis as scheduled. Discussed with Dr Diaz. Time Spent With Patient Time: Total time managing care of this patient today ____ minutes.
--- NOTE | 2024-12-31 16:02 | P.PNIM_ITS ---
Subjective Subjective Date of Service: 12/31/24 Interval History: admitted for missing dialysis and hyperkalemia, seizure no further seizure, had dialysis evening and potassium is normal Review of Systems Gen: no fever Resp: no sob, no cough CV: no chest, no JENKINS, no leg edema GI: No n/v, no abd pain Neuro: No confusion Physical Exam 2 Vital Signs: Vital Signs: Last Vital Signs Temp 97.6 F 12/31/24 10:55 Pulse 66 12/31/24 10:55 Resp 20 12/31/24 10:55 BP 160/82 H 12/31/24 10:55 Pulse Ox 100 12/31/24 10:55 O2 Del Method Nasal Cannula 12/31/24 10:55 O2 Flow Rate 3 12/31/24 10:55 BMI result Body Mass Index 24.3 Const: Other: Constitutional: Alert, in no distress. Mental Status: Oriented to person, place and time. Head/Neck:?Normocephalic, atraumatic.? Respiratory: Normal respiratory rate and effort. ? Cardiovascular: Regular rate and rhythm. ? Skin: Skin is warm and dry Musculoskeletal: No edema. No gross deformities. Neuro:?A&O x 4. Moves all extremities spontaneously. Vascular:?LUE AVF with palpable thrill, nontender to palpation, aneurysmal?changes to the site Objective Data Active Medications Acetaminophen (Acetaminophen 325 Mg Tablet) 650 mg PO Q6H PRN PRN Reason: Breakthrough Pain Last Admin: 12/31/24 12:34 Dose: 650 mg Documented By: RONAL Carvedilol (Carvedilol 25 Mg Tablet) 25 mg PO BID [facility]; Protocol Last Admin: 12/31/24 09:08 Dose: 25 mg Documented By: RONAL Diphenhydramine HCl (Diphenhydramine Hcl 50 Mg/Ml Vial) 50 mg IVPUSH ONCE ONE Stop: 01/01/25 08:01 Diphenhydramine HCl (Diphenhydramine Hcl 50 Mg/Ml Vial) 50 mg IVPUSH ONCE ONE Stop: 01/01/25 12:01 Hydromorphone HCl (Hydromorphone Hcl 1 Mg/Ml Syringe) 1 mg IVPUSH Q6H PRN; Protocol PRN Reason: Pain, Severe (Pain Scale 7-10) Last Admin: 12/31/24 09:08 Dose: 1 mg Documented By: RONAL Levetiracetam (Levetiracetam 500 Mg Tablet) 500 mg PO DAILY [facility] Last Admin: 12/31/24 09:08 Dose: 500 mg Documented By: RONAL Levetiracetam (Levetiracetam 250 Mg Tablet) 250 mg PO TUTHSA@1645 [facility] Omeprazole (Omeprazole 20 Mg Capsule.Dr) 20 mg PO DAILY@0630 [facility] Oxycodone HCl (Oxycodone Hcl Immed Release 15 Mg Tablet) 15 mg PO Q4H PRN PRN Reason: Pain, Moderate(Pain Scale 4-6) Sodium Zirconium Cyclosilicate (Sodium Zirconium Cyclosilicate 10 Gm Powd.Pack) 10 gm PO TUTHSA@1645 [facility] Sucralfate (Sucralfate 1 Gm Tablet) 1 gm PO DAILY PRN PRN Reason: Stomach Upset Labs 12/31/24 06:55 12/31/24 06:55 Labs: Laboratory Results - last 24 hr 12/31/24 06:55 MCV 95.1 MCH 30.9 MCHC 32.5 RDW 14.9 Plt Count 110 L MPV 10.1 Absolute Nucleated RBC 0.000 Nucleated RBC % (auto) 0.0 Anion Gap 17 Estim Creat Clear Calc 8.8 Estimated GFR 6 Random Glucose 109 Calcium 7.4 L D Phosphorus 5.9 H PTH Intact 70.8 Assessment and Plan (1) ESRD (end stage renal disease) on dialysis: Status: Acute (2) Acute hyperkalemia: Status: Acute Plan 39/F with ESRD here for missing dialysis and found to have hyperkalemia and reportedy had seizure ESRD HD TTS, HyperKalemia Urgent dialysis yesterday Nephrology following Chest pain/SOB relaetd to missing dialysis/ fluid overloadd expect improvementin aft er dialysis Hyperkalemia, K is normal treaed with calcium gluconate, insulin and Lokelma Seizure d/o, no further seizure continue Keppra Neurology consult requested Chronic Restp failure d/t chf, pulm HTN continue O2 HTN resume home meds after med rec Full code DVT prophylaxis: early ambulation, doesn't want compression stokcing Quality Stroke Does the patient have a stroke diagnosis?: No VTE Prior VTE?: No VTE Risk Level:: Medical - moderate - high VTE Device Contraindication: N/A - Device Ordered VTE Drug Contraindication: Treatment Not Indicated
[2024-12-31] MEDS: oxyCODONE HCl Immed Release 15 MG TABLET PO ×2 (16:19→22:46)
--- NOTE | 2024-12-31 22:58 | PC.NURSE ---
Addendum entered by Dayna Chavarria RN 12/31/24 23:07: MD to change parameters to include severe pain. Original Note: Pt c/o 03/11 pain to back and fistula site. Patient has PRN Oxycodone 15mg which is to be given instead of IV pain medications per MD. Oxycodone pain scale for moderate pain 4-5. Per MD, okay to give Oxycodone 15mg.
[2025-01-01 00:45] VITALS: BP 170/72
[2025-01-01] MEDS: NIFEdipine ER 30 MG TAB.ER.24 60 MG PO (00:45)
[2025-01-01] MEDS: oxyCODONE HCl Immed Release 15 MG TABLET PO ×3 (00:45→14:53)
[2025-01-01 01:45] VITALS: PULSE 61; RESP 16
[2025-01-01 03:30] VITALS: BP 178/87; PULSE 64; RESP 18; TEMP 36.7; O2SAT 100
[2025-01-01 07:53] VITALS: BP 156/80; PULSE 65; RESP 20; TEMP 36.4; O2SAT 94
--- NOTE | 2025-01-01 08:53 | PM.NEUROCN ---
History of Present Illness Data of Consult Service Date: 01/01/25 Primary Care Provider: Kassie Reyna MD [facility] Reason for consult: Seizure 39 years old woman with ESRD HD, secondary to?hypertensive?disease and eclampsia,, pericardial effusion requiring drain in past, CHF.?ILD,?pulmonary HTN, chronic respiratory failure who said that she was diagnosed with seizure disorder few years ago when she was diagnosed with end-stage renal disease and was put on Keppra. As long as she was taking 1 500 mg Keppra day with additional 250 after dialysis she was seizure-free for couple of years. During last few days she had symptoms of pain and left arm related to her fistula and dizziness and blacking out and she apparently went to [facility] where she was advised to have dialysis. At home, she had same symptoms again and this time she decided to come to this hospital. She said that she had another spell in emergency room. As far as symptoms of seizures are concerned, she said that it would make her confused or loss of or pass out. Review of Systems Review of Systems: Left arm pain. No recent cold or flu-like illness or trauma [facility] Social History Social History Household Members: Significant Other and Children Housing: House Do you presently have visiting nurse or other home services: Yes (After hospital stays) Patient Tobacco Use Status: Never used Tobacco service: No Meds Allergies Allergy/AdvReac Type Severity Reaction Status Date / Time ANNA Inhibitors Allergy Unknown Verified 12/30/24 09:10 adhesive tape Allergy Unknown Verified 12/30/24 09:10 amlodipine Allergy Unknown Verified 12/30/24 09:10 angiotensin II acetate, human Allergy Itching Verified 12/30/24 09:10 Beta-Blockers Allergy Itching Verified 12/30/24 09:10 (Beta-Adrenergic Bloc cinacalcet (From Sensipar) Allergy Unknown Verified 12/30/24 09:10 clonidine Allergy Anaphylaxis Verified 12/30/24 09:10 doxazosin Allergy Anaphylaxis Verified 12/30/24 09:10 epoetin michael-epbx (From Allergy Unknown Verified 12/30/24 09:10 Retacrit) epoetin beta Allergy Unknown Verified 12/30/24 09:10 furosemide Allergy Unknown Verified 12/30/24 09:10 gabapentin Allergy Anaphylaxis Verified 12/30/24 09:10 heparin Allergy Unknown Verified 12/30/24 09:10 hydralazine Allergy Anaphylaxis Verified 12/30/24 09:10 hydroxyzine Allergy Unknown Verified 12/30/24 09:10 ibuprofen (From Motrin) Allergy Unknown Verified 12/30/24 09:10 isosorbide Allergy Unknown Verified 12/30/24 09:10 labetalol Allergy Eye Verified 12/30/24 09:10 Swelling latex Allergy Itching Verified 12/30/24 09:10 levofloxacin Allergy Itching Verified 12/30/24 09:10 lisinopril Allergy Itching Verified 12/30/24 09:10 losartan Allergy Unknown Verified 12/30/24 09:10 methocarbamol Allergy Unknown Verified 12/30/24 09:10 metoprolol Allergy Unknown Verified 12/30/24 09:10 Penicillins Allergy Hives Verified 12/30/24 09:10 prednisone Allergy Unknown Verified 12/30/24 09:10 spironolactone Allergy Itching Verified 12/30/24 09:10 tramadol Allergy Unknown Verified 12/30/24 09:10 Active Medications: Current Medications Acetaminophen (Acetaminophen 325 Mg Tablet) 650 mg PO Q6H PRN PRN Reason: Breakthrough Pain Last Admin: 12/31/24 22:45 Dose: 650 mg Carvedilol (Carvedilol 25 Mg Tablet) 25 mg PO BID [facility]; Protocol Last Admin: 01/01/25 08:20 Dose: 25 mg Diphenhydramine HCl (Diphenhydramine Hcl 50 Mg/Ml Vial) 50 mg IVPUSH ONCE ONE Stop: 01/01/25 12:01 Last Admin: 12/31/24 22:45 Dose: 50 mg Levetiracetam (Levetiracetam 500 Mg Tablet) 500 mg PO DAILY [facility] Last Admin: 01/01/25 08:20 Dose: 500 mg Levetiracetam (Levetiracetam 250 Mg Tablet) 250 mg PO TUTHSA@1645 [facility] Nifedipine (Nifedipine Er 30 Mg Tab.Er.24) 60 mg PO BEDTIME [facility]; Protocol Last Admin: 01/01/25 00:45 Dose: 60 mg Omeprazole (Omeprazole 20 Mg Capsule.Dr) 20 mg PO DAILY@0630 [facility] Last Admin: 01/01/25 06:16 Dose: 20 mg Oxycodone HCl (Oxycodone Hcl Immed Release 15 Mg Tablet) 15 mg PO Q4H PRN PRN Reason: Breakthrough Pain Last Admin: 01/01/25 06:16 Dose: 15 mg Sodium Zirconium Cyclosilicate (Sodium Zirconium Cyclosilicate 10 Gm Powd.Pack) 10 gm PO TUTHSA@1645 [facility] Sucralfate (Sucralfate 1 Gm Tablet) 1 gm PO DAILY PRN PRN Reason: Stomach Upset Home Medications ?Medication ?Instructions ?Recorded ?Confirmed ?Last Taken ?Type carvedilol 25 mg tablet 25 mg PO BID 12/30/24 12/30/24 12/30/24 History cholecalciferol (vitamin D3) 50 50 mcg PO DAILY 12/30/24 12/30/24 12/30/24 History mcg (2,000 unit) tablet (Vitamin D3) levetiracetam 250 mg tablet 250 mg PO TUTHSA@1645 12/30/24 12/30/24 12/28/24 History levetiracetam 500 mg tablet 500 mg PO DAILY 12/30/24 12/30/24 12/30/24 History oxycodone 15 mg tablet 15 mg PO Q4H PRN Pain 12/30/24 12/30/24 12/30/24 History pantoprazole 40 mg tablet,delayed 40 mg PO DAILY@0630 12/30/24 12/30/24 12/30/24 History release sodium zirconium cyclosilicate 10 10 g PO TUTHSA@1645 12/30/24 12/30/24 12/30/24 History gram oral powder packet (Lokelma) sucralfate 1 gram tablet 1 g PO DAILY PRN Stomach Upset 12/30/24 12/30/24 12/30/24 History Physical Exam Vital Signs: Vital Signs: Last Vital Signs Temp 97.6 F 01/01/25 07:53 Pulse 65 01/01/25 07:53 Resp 20 01/01/25 07:53 BP 156/80 H 01/01/25 07:53 Pulse Ox 94 01/01/25 07:53 O2 Del Method Room Air 01/01/25 07:53 O2 Flow Rate 3 01/01/25 03:30 BMI result Body Mass Index 24.3 Neuro: Other: She is alert and awake with normal spontaneity of speech fluency comprehension and anxious affect. Face is symmetrical. Visual nava are full. Extraocular muscles are intact. There was no obvious focal arm or leg weakness. Deep tendon reflexes are absent with flexor plantars. Speech is normal. Results Labs 12/31/24 06:55 12/31/24 06:55 Assessment and Plan (1) Seizure disorder: Status: Acute 39 years old woman with hypertensive end-stage renal disease being treated with dialysis reported that she also suffered from seizures. This could not be independently confirmed. She said that she has been taking Keppra 500 mg a day with 250 mg after dialysis for more than 2 years and usually she was seizure free but recently she started having symptoms of dizziness and blacking out. She usually goes to [facility] in previous records were not available. For now, my recommendation is to continue Depakote but maybe increase the dose to 250 mg in the morning and 500 at night until she seizure neurologist. Outpatient EEG monitoring would be needed to figure out the nature of the symptoms she started having recently. This can be done as an outpatient. Procedures Date of Service Date of Service: 01/01/25
--- NOTE | 2025-01-01 10:30 | P.DS_ITS ---
DS: Providers Provider Date of Service: 01/01/25 Date of admission: 12/30/24 12:49 Date of discharge: 01/01/25 Primary care physician: Kassie Reyna MD Consults: 12/30/24 10:55 Consult to Nephrology Stat Consulting Provider: [facility] Reason for consultation: ESRD on HD, missed HD tues, last HD sat Has provider been notified: Yes 12/30/24 11:59 Consult to Vascular Surgery Routine Consulting Provider: [facility] Reason for consultation: AV fistula malfunction Has provider been notified: Yes 12/31/24 10:53 Consult to Neurology Routine Consulting Provider: [facility] Reason for consultation: seizure Has provider been notified: No DS: Diagnosis Discharge Diagnosis (1) Seizure disorder: Status: Acute DS: Summary Hospital Course Hospital Course: HPI by admitting provider:Patient is a 39yo F with PMH of?ESRD HD TuThSat secondary to?hypertensive?disease and eclampsi,, pericardial effusion requiring drain in past, CHF.?ILD,?pulmonary HTN, chronic respiratory failure on home O2 at 2.5 L,?severe tricuspid regurgitation,?chronic back pain,?seizure disorder, hyperparathyroidism, and GERD?who [place] [facility] [place]after missing dialysis Thursday 12/28.?Reports her last HD?session was on Monday 12/25 and there was?an infiltration at the time?which she feels was secondary to being stuck more?proximally?than usual. She?did still have her full dialysis session on?Friday.? She was seen by Vascular surgery and her fistula was deemed functional and she was to follow up with her usual dialysis site today. She has been experiencing sob, chest discomfort, head and generaliez body ache nad has had periods black consistent with her seizure. Lab work show potassium of 7.6, [place] 5.8 in [place] [place]. An arrangment is been made by Nephrology for dialysis. Of note: Surgical history: LUE AV fistula s/p multiple fistulogram's and fistula plasty procedures, fistula narrowing, pseudoaneurysm resection, , parathyroidectomy. Treated at [place] September 2024, treated at [facility] November 2024 for fistula care. Dialysis: [facility] Hospital course: Patient was admitted and underwent hemodialysis x2 during hospital course with correction of potassium and acidosis. Patient with marked improvement in her symptoms in his maintaining oxygen saturation on room air prior to discharge. Patient counseled regarding maintaining compliance with hemodialysis. Patient had a questionable episode of seizure while in the ER. Neurology was consulted and Keppra was increased to 250 mg in the morning and 500 mg at bedtime every day. Patient had concerns of malfunctioning fistula but she was evaluated by vascular surgery who deemed that fistula appeared to be stable. It was functioning well with inpatient hemodialysis sessions. Status at Discharge Functional status at discharge: independent ambulation Overall status at discharge: patient is back to baseline Time Attestation Discharge Coordination Time (in mins): 35 Quality: Safe Use of Opioids Does Pt have an Active Cancer Diagnosis on the Problem List?: No Quality: Stroke Does the patient have a stroke diagnosis?: No Physical Exam Vital Signs: Vital Signs: Last Vital Signs Temp 97.6 F 01/01/25 07:53 Pulse 65 01/01/25 07:53 Resp 20 01/01/25 07:53 BP 156/80 H 01/01/25 07:53 Pulse Ox 94 01/01/25 07:53 O2 Del Method Room Air 01/01/25 07:53 O2 Flow Rate 3 01/01/25 03:30 BMI result Body Mass Index 24.3 Const: Other: Middle-aged female lying in bed in no distress Neck supple, no JVD Regular rate and rhythm, S1-S2 heard Regular breath sounds bilaterally, no wheezing or crackles appreciated Abdomen soft nontender, no guarding, no rigidity Patient is awake, alert and oriented to self, place, time and person ; no focal motor deficit Psych: Normal mood Left upper extremity fistula with thrill DS: Data Imaging Chest x-ray: Radiologist's impression: ITS Impressions Chest X-Ray 12/30/24 10:03 IMPRESSION: 1. Moderate cardiomegaly. 2. No active pulmonary disease. Electronically signed by: Faizan Wright MD 12/30/2024 11:18 AM EDT Discharge Plan Discharge Anticipated Discharge Date/Time: 01/01/25 10:23 Patient Disposition: Home, Self-Care Discharge Diagnosis: Severe hyperkalemia due to missed hemodialysis Referrals: Kassie Reyna MD [Primary Care Provider, Internal Medicine] - 1 Week Discharge Medications: Continued carvedilol 25 mg tablet 25 mg PO BID oxycodone 15 mg tablet 15 mg PO Q4H PRN (Reason: Pain) pantoprazole 40 mg tablet,delayed release (DR/EC) 40 mg PO DAILY@0630 Lokelma 10 gram powder in packet 10 g PO TUTHSA@1645 sucralfate 1 gram tablet 1 g PO DAILY PRN (Reason: Stomach Upset) cholecalciferol (vitamin D3) [Vitamin D3] 50 mcg (2,000 unit) tablet 50 mcg PO DAILY Changed levetiracetam 500 mg tablet 500 mg PO BEDTIME 30 Days Qty: 0 0RF levetiracetam 250 mg tablet 250 mg PO DAILY 30 Days Qty: 0 0RF Discharge Orders: Discharge Order (Routine); Ordered 01/01/25 Ordered By: Nirav Childress Diet: Renal dialysis diet Activity on Discharge: As tolerated Stand Alone Forms: Patient Portal Discharge page Print Language: Tamazight Care Plan Goals: Follow-up with PCP within 1 week Maintain compliance with hemodialysis, Friday//Friday Health Concerns: ESRD on hemodialysis Seizure disorder Plan of Treatment: Increase Keppra to 250 mg in the morning and 500 mg at bedtime Assessment: As above
--- NOTE | 2025-01-01 10:52 | MHC.CM.PN ---
Patient medically cleared for dc home. Will resume [employer] services and outpatient HD. Patient will arrange private transport. RN aware.
[2025-01-01 11:33] VITALS: BP 139/71; PULSE 66; RESP 20; TEMP 36.8; O2SAT 99
== END 2025-01-01 15:31 | disposition home or self-care (01) | DRG 640 ==
LOC: HO.ED 12:39 → HO.EDOVER 12:55 → HO.IMC 13:56
PROVIDERS: Nurse Practitioner Family; Admitting Provider Internal Medicine; Emergency Provider Emergency Medicine Emergency Medical Services; PCP Internal Medicine; Visit Provider Student in an Organized Health Care Education/Training Program
DX: E87.70 Fluid overload, unspecified (principal); N18.6 End stage renal disease; I13.2 Hypertensive heart and chronic kidney disease with heart failure and with stage 5 chronic kidney disease, or end stage renal disease; J96.11 Chronic respiratory failure with hypoxia; I50.32 Chronic diastolic (congestive) heart failure; E87.5 Hyperkalemia; Z99.2 Dependence on renal dialysis; Z99.81 Dependence on supplemental oxygen; G40.909 Epilepsy, unspecified, not intractable, without status epilepticus; I27.20 Pulmonary hypertension, unspecified; Z91.148 Patient's other noncompliance with medication regimen for other reason; Z91.158 Patient's noncompliance with renal dialysis for other reason; Z79.899 Other long term (current) drug therapy
CPT/HCPCS: 36415; 71045; 80048; 80053; 82947; 83735; 83880; 83970; 84100; 84484; 85025; 85027; 90999; 93005; 99285; J0613; J1171; J1200; J1953

== ENCOUNTER → 2024-12-30 09:42 | Outpatient (BNV) | payer MEDICARE, MEDICAID, SELFPAY | PROVIDERS: Admitting Provider Internal Medicine; Emergency Provider Emergency Medicine Emergency Medical Services; PCP Internal Medicine; Visit Provider Internal Medicine Cardiovascular Disease | DX: R94.31 Abnormal electrocardiogram [ECG] [EKG] (principal); R07.9 Chest pain, unspecified | CPT/HCPCS: 93010 ==

== ENCOUNTER → 2024-12-30 10:03 | Outpatient (BNV) | payer MEDICARE, MEDICAID, SELFPAY | PROVIDERS: Emergency Provider Emergency Medicine Emergency Medical Services; PCP Internal Medicine; Visit Provider Radiology Diagnostic Radiology | DX: I51.7 Cardiomegaly (principal) | CPT/HCPCS: 71045 ==

== ENCOUNTER → 2024-12-30 12:49 | Outpatient (BNV) | payer MEDICARE, MEDICAID, SELFPAY | PROVIDERS: Admitting Provider Internal Medicine; Emergency Provider Emergency Medicine Emergency Medical Services; PCP Internal Medicine; Visit Provider Nurse Practitioner Family | DX: N18.6 End stage renal disease (principal); Z99.2 Dependence on renal dialysis | CPT/HCPCS: 99222; 99232 ==

== ENCOUNTER → 2024-12-30 12:49 | Outpatient (BNV) | payer MEDICARE, MEDICAID, SELFPAY | PROVIDERS: Admitting Provider Internal Medicine; Emergency Provider Emergency Medicine Emergency Medical Services; PCP Internal Medicine; Visit Provider Psychiatry & Neurology Neurology | DX: G40.909 Epilepsy, unspecified, not intractable, without status epilepticus (principal); N18.6 End stage renal disease; Z99.2 Dependence on renal dialysis | CPT/HCPCS: 99222 ==

== ENCOUNTER → 2024-12-30 12:49 | Outpatient (BNV) | payer MEDICARE, MEDICAID, SELFPAY | PROVIDERS: Admitting Provider Internal Medicine; Emergency Provider Emergency Medicine Emergency Medical Services; PCP Internal Medicine; Visit Provider Internal Medicine | DX: G40.909 Epilepsy, unspecified, not intractable, without status epilepticus (principal) | CPT/HCPCS: 99223; 99232; 99239 ==

== ENCOUNTER → 2024-12-30 12:49 | Outpatient (BNV) | payer MEDICARE, MEDICAID, SELFPAY | PROVIDERS: Admitting Provider Internal Medicine; Emergency Provider Emergency Medicine Emergency Medical Services; PCP Internal Medicine; Visit Provider Surgery Vascular Surgery | DX: N18.6 End stage renal disease (principal); Z99.2 Dependence on renal dialysis | CPT/HCPCS: 99222 ==

== ENCOUNTER 2025-01-06 11:07 | Inpatient (IN) | payer MEDICARE, MEDICAID, SELFPAY ==
--- OUTSIDE RECORDS SUMMARY | 2024-01-18 05:00 | XMS_ITS ---
Author Organization [facility] Address [address] [place] [address] [phone] Care Team Providers Care Transit Specialist Name Role Phone Migration, Provider Unavailable Unavailable REASON FOR VISIT [place] [place] Encounter Location Date Provider Diagnosis [facility] [address] [place] [address] [phone] 01/18/2024 Provider Migration Plan Of Treatment No Information Progress Notes * HIMA OROZCODOB: [birth year] (39 yo F)Acc No.[id number]:01/18/2024 Patient: HIMA CORTEZ :1985 A ge:38 Y S ex:Female Address:[address] [place] [address], [address] Subjective: * Chief Complaints: * E MR-Stone * Medical History: * Surgical History: * Hospitalization/Major Diagno stic Procedure: * Medications: Objective: * Vitals: * Physical Examination: Assessment: Plan: * Treatment: * Procedure Codes: * * Date:
--- NOTE | ~2025-01-06 | XR_ITS ---
EXAMINATION: XR CHEST 2 VIEWS HISTORY: chest pain, dyspnea COMPARISON: Comparison is made with the prior examination dated 12/30/2024. FINDINGS: AP and lateral views of the chest are submitted. There is linear scarring in the left midlung zone. The lungs are otherwise clear. There is no pleural effusion, pneumothorax, or pulmonary vascular congestion. The heart remains enlarged. The bones are intact. Surgical clips at the thoracic inlet. XR/XR chest 2V IMPRESSION: Cardiomegaly. No acute cardiopulmonary abnormality. Electronically signed by: Gómez Gresham MD 01/06/2025 03:27 PM EDT
--- NOTE | ~2025-01-06 | XR_ITS ---
EXAMINATION: XR LUMBOSACRAL SPINE CLINICAL INFORMATION: low back pain shocks COMPARISON: None available. TECHNIQUE: AP and lateral views FINDINGS: Small marginal osteophyte formation throughout the axial skeleton. Mild endplate sclerosis in the vertebral bodies. No acute cortical disruption. No gross malalignment. No lytic or blastic lesions. Rudimentary ribs, T12. Vascular calcifications distal abdominal aorta/iliac arteries.. XR/XR lumbar spine 2-3V IMPRESSION: Mild multilevel spondylosis. Electronically signed by: Logan Valentino MD 01/06/2025 03:30 PM EDT
[2025-01-06 11:22] VITALS: BP 210/104; PULSE 87; RESP 16; TEMP 36.4; O2SAT 94; BMI 24.5
--- NOTE | 2025-01-06 11:22 | ED.GENADULT ---
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 Reports shocks were originally every few hours, now becoming more frequent. She reports history of bulging discs in her back - denies any new injury/trauma/ falls. She tells me she is bed bound, will occasionally ambulate by herself. She has been intermittently ambulating over the last week. States she is on chronic pain medications for her back pain, taking these without improvement. She was last dialyzed on Friday (7 days ago). Reports missing her dialysis Friday due to pain. Instead of presenting to dialysis today, she was brought to the ED for further evaluation. She endorses increasing shortness of breath. She typically requires 2 L O2 at home however when she lies flat she has to increase this to 3.5L. Related Data Home Medications ?Medication ?Instructions ?Recorded ?Confirmed carvedilol 25 mg tablet 25 mg PO BID 12/30/24 01/06/25 cholecalciferol (vitamin D3) 50 50 mcg PO DAILY 12/30/24 01/06/25 mcg (2,000 unit) tablet (Vitamin D3) pantoprazole 40 mg tablet,delayed 40 mg PO DAILY@0630 12/30/24 01/06/25 release sodium zirconium cyclosilicate 10 10 g PO DAILY 12/30/24 01/06/25 gram oral powder packet (Lokelma) sucralfate 1 gram tablet 1 g PO DAILY PRN Stomach Upset 12/30/24 01/06/25 levetiracetam 250 mg tablet 250 mg PO MOWEFR 01/06/25 01/06/25 levetiracetam 500 mg tablet 500 mg PO DAILY 01/06/25 01/06/25 nifedipine 30 mg tablet,extended 30 mg PO DAILY 01/06/25 01/06/25 release 24 hr nifedipine 30 mg tablet,extended 60 mg PO BEDTIME 01/06/25 01/06/25 release 24 hr sildenafil (pulm.hypertension) 20 20 mg PO BID 01/06/25 01/06/25 mg tablet Previous Rx's ?Medication ?Instructions ?Recorded oxycodone 15 mg tablet 15 mg PO Q4H PRN pain (scale score 01/01/25 7-10) #20 tabs Allergies Allergy/AdvReac Type Severity Reaction Status Date / Time ANNA Inhibitors Allergy Unknown Verified 01/06/25 11:28 adhesive tape Allergy Unknown Verified 01/06/25 11:28 amlodipine Allergy Unknown Verified 01/06/25 11:28 angiotensin II acetate, human Allergy Itching Verified 01/06/25 11:28 Beta-Blockers Allergy Itching Verified 01/06/25 11:28 (Beta-Adrenergic Bloc cinacalcet (From Sensipar) Allergy Unknown Verified 01/06/25 11:28 clonidine Allergy Anaphylaxis Verified 01/06/25 11:28 doxazosin Allergy Anaphylaxis Verified 01/06/25 11:28 epoetin michael-epbx (From Allergy Unknown Verified 01/06/25 11:28 Retacrit) epoetin beta Allergy Unknown Verified 01/06/25 11:28 furosemide Allergy Unknown Verified 01/06/25 11:28 gabapentin Allergy Anaphylaxis Verified 01/06/25 11:28 heparin Allergy Unknown Verified 01/06/25 11:28 hydralazine Allergy Anaphylaxis Verified 01/06/25 11:28 hydroxyzine Allergy Unknown Verified 01/06/25 11:28 ibuprofen (From Motrin) Allergy Unknown Verified 01/06/25 11:28 isosorbide Allergy Unknown Verified 01/06/25 11:28 labetalol Allergy Eye Verified 01/06/25 11:28 Swelling latex Allergy Itching Verified 01/06/25 11:28 levofloxacin Allergy Itching Verified 01/06/25 11:28 lisinopril Allergy Itching Verified 01/06/25 11:28 losartan Allergy Unknown Verified 01/06/25 11:28 methocarbamol Allergy Unknown Verified 01/06/25 11:28 metoprolol Allergy Unknown Verified 01/06/25 11:28 Penicillins Allergy Hives Verified 01/06/25 11:28 prednisone Allergy Unknown Verified 01/06/25 11:28 spironolactone Allergy Itching Verified 01/06/25 11:28 tramadol Allergy Unknown Verified 01/06/25 11:28 Review of Systems Review of Systems: Yes all other systems are reviewed and are negative [facility] Past Medical History Attestation statement: The following information was validated with the patient. Source: old records reviewed and nursing notes reviewed Medical History Chronic hypoxic respiratory failure Seizure disorder ESRD (end stage renal disease) on dialysis Social History Social History Household Members: Spouse and Children Housing: House Do you presently have visiting nurse or other home services: Yes (After hospital stays) Patient Tobacco Use Status: Never used Tobacco service: No Physical Exam ED Vital Signs: Vital Signs - 24 hr 01/06/25 11:22 01/06/25 12:35 01/06/25 14:03 Temperature 97.6 F 98.9 F 98.9 F Pulse Rate 87 87 84 Respiratory Rate 16 18 19 Blood Pressure 210/104 H 188/96 H 161/90 H Pulse Oximetry 94 98 99 Oxygen Delivery Method Room Air Nasal Cannula Nasal Cannula Oxygen Flow Rate 2 2 01/06/25 14:39 Temperature Pulse Rate Respiratory Rate 19 Blood Pressure Pulse Oximetry Oxygen Delivery Method Oxygen Flow Rate BMI result Body Mass Index 24.5 hypertensive, satting 94% on 2L NC General: in nad Skin: Warm, dry, intact. No rashes or lesions. Head: Normocephalic, atraumatic. EENT: Hearing is intact b/l. Conjunctiva clear. PERRLA. EOM intact. Moist mucous membranes.? Neck: Supple without LAD Cardiac: Chest wall symmetric. RRR Lungs: Normal respiratory effort without accessory muscle use. CTA bilaterally Abdomen: Soft, non-tender, non-distended. No rebound tenderness or guarding. Positive BS x4. Back: +ttp of midline lumbar spine without step off or deformity. Ext: +LUE fistula w/ thrill Neuro: AOx3. Normal speech. Strength 5/5 intact throughout. No saddle anesthesia. Sensation intact to light touch. NV intact distally Psych: Appropriate mood and affect. Responds appropriately to questions. Course Course Course Narrative: This is a rapid medical exam performed by Eyal Johsn NP: Additional HPI, ROS, PE not included below will be deferred to primary provider. Patient is a 39-year-old female with history of ESRD on dialysis, seizure disorder presenting to the ED stating that she has been bedbound since leaving here, is on baseline O2, has not had dialysis since last . Recently admitted here for hyperkalemia, discharged on 01/01. Feels dizzy, weak, back and chest pain. Plan: EKG, labs, CXR Reevaluation(s) Reevaluation #1: 1300 -- patient without leukocytosis or left shift. h&h stable when compared to priors. chemistry showing hyperkalemia to 6.2 without evidence of hemolysis. BUN elevated to 111, creatinine elevated to 14.4. anion gap 27. Magnesium 2.6. Liver function around her baseline. Troponin elevated to 35.6, will repeat for delta. ekg without evidence of peaked t waves. neg covid/flu/rsv. cxr > patient medicated with dilaudid. > call out to [facility] medical care evaluation specialist subpoena server for recommendations. anticipate admission to medicine for emergent dialysis. 1347 -- BNP elevated to 8748, upward trending from 3700 1 week ago. still awaiting call back from [facility]. > cxr and xr lumbar spine pending. 1439 -- Discussed case with patient's subpoena server, dr. arechiga, who agrees with emergent dialysis. He states patient has been non compliant with her dialysis as of recent, has been presenting to various EDs complaining of pain and requesting medications. > I spoke with [facility] [place] Dr. Temple who is arranging dialysis - patinet to be dialyzed shortly. Not recommending any medication intervention at this time. Spoke with hospitalist jose raul garcia who has accepted patient admission. Medications Administered Generic Name Dose Route Start Last Admin Trade Name Freq PRN Reason Stop Dose Admin Acetaminophen 650 mg 01/06/25 15:50 01/07/25 03:31 Acetaminophen 325 Mg Tablet PO 650 mg Q6H PRN Administration Pain, Mild 1-3,fever,headache Hydromorphone HCl 1 mg 01/06/25 16:28 01/07/25 06:22 Hydromorphone Hcl 1 Mg/Ml Syringe IVPUSH 1 mg Q4H PRN Administration Pain, Severe (Pain Scale 7-10) Protocol Sodium Chloride 3 ml 01/06/25 16:00 01/06/25 23:48 0.9 % Sodium Chloride Flush 3 Ml Syringe IVFLUSH 3 ml QSHIFT MARGY Administration Discontinued Medications Generic Name Dose Route Start Last Admin Trade Name Freq PRN Reason Stop Dose Admin Diphenhydramine HCl 50 mg 01/06/25 15:10 01/06/25 17:21 Diphenhydramine Hcl 50 Mg/Ml Vial IVPUSH 01/06/25 15:11 50 mg ONCE ONE Administration Diphenhydramine HCl 50 mg 01/06/25 19:00 01/07/25 01:55 Diphenhydramine Hcl 50 Mg/Ml Vial IVPUSH 01/06/25 19:01 Not Given ONCE ONE Diphenhydramine HCl 50 mg 01/06/25 23:30 01/06/25 23:48 Diphenhydramine Hcl 50 Mg/Ml Vial IVPUSH 01/06/25 23:31 50 mg ONCE ONE Administration Hydromorphone HCl 1 mg 01/06/25 12:40 01/06/25 13:50 Hydromorphone Hcl 1 Mg/Ml Syringe IVPUSH 01/06/25 12:41 1 mg ONCE ONE Administration Protocol Hydromorphone HCl 1 mg 01/06/25 14:19 01/06/25 14:39 Hydromorphone Hcl 1 Mg/Ml Syringe IVPUSH 01/06/25 14:20 1 mg ONCE ONE Administration Protocol Sodium Zirconium Cyclosilicate 10 gm 01/06/25 15:22 01/06/25 15:53 Sodium Zirconium Cyclosilicate 10 Gm Powd.Pack PO 01/06/25 15:23 10 gm ONCE ONE Administration Medical Decision Making Medical Decision Making MDM Narrative: 39 year old female with pmhx significant for 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 Differential diagnosis includes anemia, electrolyte abnormality, CHF, fluid overload, arrhythmia, msk sprain/strain, sciatica, lumbar radiculopathy, fracture, pneumonia, pleural effusion Plan for labs, ekg, cxr, xr lumbar spine, pain control, re-evaluation. Differential Diagnosis Differential Diagnoses: The differential diagnosis associated with the presentation includes as above. Admission/Observation Consideration of admission/observation: Escalation of care including admission/observation considered Patient to be admitted to medicine for emergent dialysis Consult Healthcare Provider Management of the patient was discussed with: Hospitalist (radha) and Environmental Technical Officer (rissa temple ) Lab Data MDM Lab Attestation statement: I reviewed the patient's lab results. as above 01/06/25 12:14 01/06/25 12:14 Labs: Lab Results 01/06/25 Range/Units 12:14 WBC 6.7 (4.8-10.8) X10*3/uL RBC 2.61 L (4.20-5.50) X10*6/uL Hgb 8.2 L (12.0-16.0) g/dl Hct 24.6 L (37.0-47.0) % MCV 94.3 (80.0-98.0) fL MCH 31.4 (27.0-33.0) pg MCHC 33.3 (31.0-35.0) g/dl RDW 15.3 (11.0-16.0) % Plt Count 125 L (160-400) X10*3/uL MPV 10.0 (9.4-12.3) fL Immature Gran % (Auto) 1.2 H (0.0-0.4) % Neut % (Auto) 73.2 H (45-73) % Lymph % (Auto) 14.7 L (20-40) % [place] % (Auto) 6.2 (2-11) % Eos % (Auto) 3.8 (0-4) % Baso % (Auto) 0.9 (0-2) % Lymph # (Auto) 1.0 L (1.2-4.9) X10*3/uL [place] # (Auto) 0.4 (0.1-1.2) X10*3/uL Eos # (Auto) 0.3 (0.0-0.4) X10*3/uL Baso # (Auto) 0.1 (0.0-0.2) X10*3/uL Abs Immat Gran (auto) 0.08 H (0.00-0.03) X10*3/uL Absolute Neuts (auto) 4.9 (2.0-8.3) x10*3/uL Absolute Nucleated RBC 0.020 H (0.0-0.012) X10*3/uL Nucleated RBC % (auto) 0.3 H (0.0-0.2) /100WBC PT 17.5 H (10.9-12.4) SEC INR 1.5 H (0.9-1.1) Sodium 138 (135-145) mmol/L Potassium 6.2 H* D (3.3-5.1) mmol/L Chloride 98 (96-108) mmol/L Carbon Dioxide 19 L (22-29) mmol/L Anion Gap 27 H (12-20) BUN 111 H (9-16) mg/dL Creatinine 14.40 H* (0.5-1.4) mg/dL Estim Creat Clear Calc 4.8 Estimated GFR 3 Random Glucose 88 (60-115) mg/dL Calcium 6.6 L D (8.4-10.2) mg/dL Phosphorus 7.9 H (2.7-4.5) mg/dL Magnesium 2.6 (1.6-2.6) mg/dL Total Bilirubin 0.5 (0.0-1.0) mg/dL AST 30 (5-31) U/L ALT 24 (0-31) U/L Alkaline Phosphatase 127 H (39-117) U/L Troponin I High Sens 35.6 H D (<3.5-17.0) ng/L B-Natriuretic Peptide 8748 H (<100) pg/mL Total Protein 7.8 (6.5-8.0) g/dL Albumin 4.4 (3.5-5.0) g/dL Beta HCG, Quant < 2 mIU/mL Influenza Type A (PCR) NEGATIVE (Negative) Influenza Type B (PCR) NEGATIVE (Negative) RSV RNA Qual (PCR) NEGATIVE (Negative) SARS-CoV-2 RNA (RT-PCR) NEGATIVE (Negative) Independent Interpretation I performed an independent interpretation of an: EKG and Plain X-Ray Interpretation: EKG showing normal sinus rhythm, rate of 79 beats per minute, QT 456, QTC 522, no peaked T-waves, no acute ischemic changes or ST elevations cxr showing cardiomegaly, no obvious pulmonary edema xr lumbar spine without fracture Radiology Impression Discussion of test interpretation with radiology: I have reviewed the radiologist's reading. Radiologist Impression: Date of Service: 01/06/25 Procedure(s): XR chest 2V Accession Number(s): [id number] cc: Kassie Reyna MD; Amy Johns NP~ EXAMINATION: XR CHEST 2 VIEWS HISTORY: chest pain, dyspnea COMPARISON: Comparison is made with the prior examination dated 12/30/2024. FINDINGS: AP and lateral views of the chest are submitted. There is linear scarring in the left midlung zone. The lungs are otherwise clear. There is no pleural effusion, pneumothorax, or pulmonary vascular congestion. The heart remains enlarged. The bones are intact. Surgical clips at the thoracic inlet. XR/XR chest 2V IMPRESSION: Cardiomegaly. No acute cardiopulmonary abnormality. Electronically signed by: Gómez Gresham MD 01/06/2025 03:27 PM EDT RP Procedure(s): XR lumbar spine 2-3V Accession Number(s): [id number] cc: Kassie Reyna MD; Kathy Arguelles~ EXAMINATION: XR LUMBOSACRAL SPINE CLINICAL INFORMATION: low back pain shocks COMPARISON: None available. TECHNIQUE: AP and lateral views FINDINGS: Small marginal osteophyte formation throughout the axial skeleton. Mild endplate sclerosis in the vertebral bodies. No acute cortical disruption. No gross malalignment. No lytic or blastic lesions. Rudimentary ribs, T12. Vascular calcifications distal abdominal aorta/iliac arteries.. XR/XR lumbar spine 2-3V IMPRESSION: Mild multilevel spondylosis. Electronically signed by: Logan Valentino MD 01/06/2025 03:30 PM EDT RP Independent Historian Clinical information obtained from an independent historian. History obtained from or confirmed by: EMS External Record Review External record reviewed: Inpatient record Prescription Management I considered prescription management with: Pain Medication Chronic Conditions Patient?s care impacted by: Other (ESRD) Social Determinants Patient?s care significantly limited by Social Determinants of Health including: Other Social Determinant of Health Critical Care Time Critical Care Time Critical Care Time: Yes Total Critical Care Time: 37 Attestation: Critical care time in the amount of 37 minutes has been provided to the patient in terms of direct patient care, frequent reevaluation, consultation with nephrology and hospitalist, review and interpretation of medical data and results, and management of potentially life-threatening conditions. This is all outside of any medical procedures. Discharge Plan Discharge Clinical Impression: End stage renal failure on dialysis Patient Disposition: Admitted As Inpatient Interventions: Admission Worksheet (ED) Last Done: 01/06/25 15:59 Discharge Date/Time: 01/06/25 22:18
--- NOTE | 2025-01-06 11:24 | ECG_ITS ---
Test Reason : DELGADJ Blood Pressure : */* mmHG Vent. Rate : 79 BPM Atrial Rate : 79 BPM P-R Int : 200 ms QRS Dur : 86 ms QT Int : 456 ms P-R-T Axes : 62 1 146 degrees QTcB Int : 522 ms Normal sinus rhythm ST & T wave abnormality, consider lateral ischemia Prolonged QT Abnormal ECG When compared with ECG of 30-Dec-2024 09:42, No significant change was found Referred By: Amy Johns Electronically Signed By: YANA LINARES
[2025-01-06 12:19] LABS: MANUAL DIFF FLAG NO
--- OUTSIDE RECORDS SUMMARY | 2025-01-06 12:20 | XMS_ITS | Encounter Summary ---
Author Organization [facility], Address [address] [place] [address] Phone Care Team Providers Care Warehouse Laborer Name Role Phone Rashid Helton MD Primary Care Provider [phone] Encounter Details Date Type Department Care Team (Late st Contact Info) Description 01/10/2022 Documentation Only [facility], [address] [place] [id number] Malick Arechiga [address] [place] [address] Social History Tobacco Use Types [...] on filedocumented in this encounter Care Teams Warehouse Laborer Relationship Specialty Start Date End Date Rashid Helton MD [facility] [address] [place] [address] PCP - General 06/12/20 documented as of this encounter
--- OUTSIDE RECORDS SUMMARY | 2025-01-06 12:20 | XMS_ITS | Encounter Summary ---
Author Organization [facility] Address [address] [place] [address] Care Team Providers Care Repair Technician Name Role Phone Kassie Reyna MD Primary Care Provider [phone] Dialysis, [facility] Unavailable [phone] Lana Quintana MD Unavailable Gómez Whitley MD Unavailable Encounter Details Date Type Department Care Team (Late st Contact Info) Description 06/25/2023 Mobile [facility] Physicians Department of Nephrology [address] [phone] Lana Quintana MD [address] [place] [id number] Vitamin D deficiency (Primary Dx) Social History [...] Primary documented in this encounter Care Teams Repair Technician Relationship Specialty Start Date End Date Kassie Reyna MD [address] [place] [address] PCP - General Internal Medicine 12/24/21 Dialysis, [facility] [address] [place] [address] Dialysis Unit 09/05/22 Lana Quintana MD [address] [place] [phone] Physician Nephrology 09/11/22 Gómez Whitley MD [address] [place] [address] Surgery, General 10/25/22 documented as of this encounter
--- OUTSIDE RECORDS SUMMARY | 2025-01-06 12:20 | XMS_ITS | Encounter Summary ---
Author Organization [facility] Address [address] [place] [address] Phone Care Team Providers Care Industrial Methods Consultant Name Role Phone Kassie Reyna MD Primary Care Provider + Encounter Details Date Type Department Care Team (Late st Contact Info) Description 11/16/2024 Procedure Pass [facility] US [address] [place] [address] Social History Tobacco Use Types Packs/Day Years [...] Care Team (Late st Contact Info) Description 03/22/2025 3:00 PM EDT Office Visit [facility] [address] [place] [address], [address] Floor, [address] [place] [address] Zuleika Adams MD [address] [place] [address] [address] [place] [address] [email or web address] documented as of this encounter Goals Goal Patient Goal Type Associated Problems Recent Progress Patient-Stated? Author Safety Care Plan Acute Care Plan No Wood, [place], RN Note: Safety Care Plan Objectives Provide [...] cell phone pictures and video calls like [employer]. If patient is found to be recording [...] on filedocumented in this encounter Care Teams Industrial Methods Consultant Relationship Specialty Start Date End Date Kassie Reyna MD [address] [place] [address] PCP - General Internal Medicine 12/17/21 documented as of this encounter Additional Source Comments The information contained in this document represents components of the legal health record. It is not the complete legal health record.[facility]
--- OUTSIDE RECORDS SUMMARY | 2025-01-06 12:20 | XMS_ITS | Encounter Summary ---
Author Organization [facility] Address [address] [place] [address] Care Team Providers Care Ms Sql Server Developer Name Role Phone Kassie Reyna MD Primary Care Provider [phone] Encounter Details Date Type Department Care Team (Late st Contact Info) Description 08/18/2023 Abstract [facility] [address] [facility] [address] [facility] [address] [place] [address] Taylor De León, MIKE Social History Tobacco [...] documented as of this encounter Care Teams Ms Sql Server Developer Relationship Specialty Start Date End Date Kassie Reyna MD [address] [facility] [address] [place] [address] PCP - General Internal Medicine 07/29/22 documented as of this encounter
--- OUTSIDE RECORDS SUMMARY | 2025-01-06 12:20 | XMS_ITS | Patient Health Record ---
Author Organization [facility] Address [address] [place] [address] Care Team Providers Care Paper Counter Name Role Phone Self, Self Unavailable Unavailable [...] tablets with meals Orally Three times a day; Duration: 30 day(s) Active Labetalol HCl 300 MG 1 tablet Orally Twice a day Active Keppra 250 MG 1 tablet Orally daily Takes on dialysis days Active oxyCODONE HCl 10 MG 1 tablet as needed Orally QID; Duration: 30 days 09/06/2019 Active Keppra 500 MG 1 tablet Orally Daily Active Cyclobenzaprine HCl 10 MG 1 tablet 1 to 2 hours before bedtime Orally Once a day Active oxyCODONE HCl 10 MG 1 tablet as needed Orally every 6 hrs; Duration: 30 days Please have script mailed to patient. Thx! 12/31/2019 Active Social History Alcohol Screen (Audit-C) Question Answer Notes Did you have a drink containing alcohol in the p ast year? No Points 0 Interpretation Negative Problems Problem Type SNOMED Code ICD Code Onset Dates Problem Status W/U Status Risk Notes Problem Chronic pain (76219001) Other chronic pain (G89.29) Active confirmed Problem Chronic pain syndrome (189396998) Chronic pain syndrome (G89.4) Active confirmed Problem Low back pain (706454432) Low back pain (M54.5) Active confirmed Problem End stage renal disease (89362847) End stage chronic kidney disease (N18.6) Active confirmed Plan Of Treatment Pending Test Test Name Order Date UDT - POC 11/01/2019 Insurance Providers Payer Name Payer Address Payer Phone Subscriber Number Group Number Insured Name Patient Relationship to Insured Coverage Start Date Coverage End Date Medicare-[place] Medicare [address] [place] [address] [id number] Flavio [place] Self - patient is the insured [facility] [address] [address] [place] [address] [id number] Flavio [place] Self - patient is the insured Medical (General) History Medical History History ICD Code anxiety Kidney Disease seizures allergies Surgical History Surgery Date(Month/Year) section DNC Angiogram fistula repair parathyroidectomy
[2025-01-06 12:23] LABS: Hematocrit 24.6 % (37.0-47.0); Hemoglobin 8.2 g/dl (12.0-16.0); Imm Gran Abs Auto 0.08 X10*3/uL (0.00-0.03); Imm Gran Pct Auto 1.2 % (0.0-0.4); Lymphocytes Absolute Auto 1.0 X10*3/uL (1.2-4.9); Mean Corpuscular HGB Conc 33.3 g/dl (31.0-35.0); Mean Corpuscular Hemoglobin 31.4 pg (27.0-33.0); Mean Corpuscular Volume 94.3 fL (80.0-98.0); NRBC Abs Auto 0.020 X10*3/uL (0.0-0.012); NRBC Pct Auto 0.3 /100WBC (0.0-0.2); Platelet Count 125 X10*3/uL (160-400); Red Blood Count 2.61 X10*6/uL (4.20-5.50); White Blood Count 6.7 X10*3/uL (4.8-10.8)
[2025-01-06 12:30] LABS: INTERNATIONAL NORM RATIO 1.5 (0.9-1.1); Prothrombin Time 17.5 SEC (10.9-12.4)
[2025-01-06 12:35] VITALS: BP 188/96; PULSE 87; RESP 18; TEMP 37.2; O2SAT 98
[2025-01-06 12:44] LABS: Troponin-I High Sensitivity 35.6 ng/L (<3.5-17.0)
[2025-01-06 12:58] LABS: Resp Syncy Virus RNA Qual PCR NEGATIVE (Negative); SARS COV2 PCR INHOUSE NEGATIVE (Negative)
[2025-01-06 13:01] LABS: Alanine Aminotransferase 24 U/L (0-31); Albumin Level 4.4 g/dL (3.5-5.0); Alkaline Phosphatase 127 U/L (39-117); Anion Gap 27 (12-20); Aspartate Amino Transferase 30 U/L (5-31); Blood Urea Nitrogen 111 mg/dL (9-16); Calcium 6.6 mg/dL (8.4-10.2); Carbon Dioxide 19 mmol/L (22-29); Chloride 98 mmol/L (96-108); Creatinine Clr Calc Pharmacy 4.8; Estimated Glomerular Filt Rate 3; Magnesium 2.6 mg/dL (1.6-2.6); Potassium 6.2 mmol/L (3.3-5.1); Sodium 138 mmol/L (135-145); Total Protein 7.8 g/dL (6.5-8.0)
--- NOTE | 2025-01-06 13:10 | PC.NURSE ---
PAtient presents to ED c/o back spasms and difficulty walking since last discharged from [facility] last week. Dialysis patient T-Th- Sat. Fistula +bruit thrill in left arm. Patient stated she went late Friday night but missed dialysis. O2 dependent 2L NC O2 98%. Attempted to placed IV unsuccessful, assisting RN attempting to place US IV at this time.
[2025-01-06 13:31] LABS: B Type Natriuretic Peptide 8748 pg/mL (<100)
--- NOTE | 2025-01-06 13:52 | MHC.EDTECH ---
CALL TO KIDNEY CARE @ [facility] [phone] FE [facility]ART @ [facility]
[2025-01-06 14:03] VITALS: BP 161/90; PULSE 84; RESP 19; TEMP 37.2; O2SAT 99
--- NOTE | 2025-01-06 14:13 | PC.NURSE ---
Patient shouting out when back spasms occur. dilauded administered with no effect, patient requesting more pain medication to go to [place]. Notified provider awaiting orders
[2025-01-06 14:39] VITALS: RESP 19
--- NOTE | 2025-01-06 15:13 | PM.CNNEP ---
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 She presented today 01/06 to the ED with reports of palpitations, as well as back pain radiating to her chest. She states her breathing is ok. Reports has ongoing headache. Reports blacking out episodes after she left the hospital last week- had recent admission 12/30-01/01 with seizure in the hospital. Has not been to dialysis since discharge. Nephrology consulted for management of ESRD on HD. patient is alert and oriented to person, place and situation though speech is tangential. Review of Systems Constitutional: Reports fatigue and Reports headache(s) Reports headache(s) Cardiovascular: Reports chest pain, Denies leg edema, Denies lightheadedness and Denies dyspnea Respiratory: Denies dyspnea Gastrointestinal: Denies abdominal pain, Denies constipation, Denies diarrhea and Denies nausea Genitourinary: Reports no additional female genitourinary complaints Musculoskeletal: Reports back pain Skin/Breast: Denies rash Reports headache(s) Endocrine: Reports fatigue PMFSH Social History Social History Household Members: Significant Other and Children Housing: House Do you presently have visiting nurse or other home services: Yes (After hospital stays) Patient Tobacco Use Status: Never used Tobacco Smoked in Last 30 Days: No Use of substances other than those prescribed or required for medical reasons: No Advance Directives: No Advance Directives Information Provided: Yes Do you have a plan to hurt others: No Plan service: No Meds Allergies Allergy/AdvReac Type Severity Reaction Status Date / Time ANNA Inhibitors Allergy Unknown Verified 01/06/25 11:28 adhesive tape Allergy Unknown Verified 01/06/25 11:28 amlodipine Allergy Unknown Verified 01/06/25 11:28 angiotensin II acetate, human Allergy Itching Verified 01/06/25 11:28 Beta-Blockers Allergy Itching Verified 01/06/25 11:28 (Beta-Adrenergic Bloc cinacalcet (From Sensipar) Allergy Unknown Verified 01/06/25 11:28 clonidine Allergy Anaphylaxis Verified 01/06/25 11:28 doxazosin Allergy Anaphylaxis Verified 01/06/25 11:28 epoetin michael-epbx (From Allergy Unknown Verified 01/06/25 11:28 Retacrit) epoetin beta Allergy Unknown Verified 01/06/25 11:28 furosemide Allergy Unknown Verified 01/06/25 11:28 gabapentin Allergy Anaphylaxis Verified 01/06/25 11:28 heparin Allergy Unknown Verified 01/06/25 11:28 hydralazine Allergy Anaphylaxis Verified 01/06/25 11:28 hydroxyzine Allergy Unknown Verified 01/06/25 11:28 ibuprofen (From Motrin) Allergy Unknown Verified 01/06/25 11:28 isosorbide Allergy Unknown Verified 01/06/25 11:28 labetalol Allergy Eye Verified 01/06/25 11:28 Swelling latex Allergy Itching Verified 01/06/25 11:28 levofloxacin Allergy Itching Verified 01/06/25 11:28 lisinopril Allergy Itching Verified 01/06/25 11:28 losartan Allergy Unknown Verified 01/06/25 11:28 methocarbamol Allergy Unknown Verified 01/06/25 11:28 metoprolol Allergy Unknown Verified 01/06/25 11:28 Penicillins Allergy Hives Verified 01/06/25 11:28 prednisone Allergy Unknown Verified 01/06/25 11:28 spironolactone Allergy Itching Verified 01/06/25 11:28 tramadol Allergy Unknown Verified 01/06/25 11:28 Active Medications: Current Medications Diphenhydramine HCl (Diphenhydramine Hcl 50 Mg/Ml Vial) 50 mg IVPUSH ONCE ONE Stop: 01/06/25 19:01 Home Medications ?Medication ?Instructions ?Recorded ?Confirmed ?Last Taken ?Type carvedilol 25 mg tablet 25 mg PO BID 12/30/24 12/30/24 12/30/24 History cholecalciferol (vitamin D3) 50 50 mcg PO DAILY 12/30/24 12/30/24 12/30/24 History mcg (2,000 unit) tablet (Vitamin D3) pantoprazole 40 mg tablet,delayed 40 mg PO DAILY@0630 12/30/24 12/30/24 12/30/24 History release sodium zirconium cyclosilicate 10 10 g PO TUTHSA@1645 12/30/24 12/30/24 12/30/24 History gram oral powder packet (Lokelma) sucralfate 1 gram tablet 1 g PO DAILY PRN Stomach Upset 12/30/24 12/30/24 12/30/24 History sildenafil (pulm.hypertension) 20 20 mg PO TID 01/06/25 Unknown History mg tablet valsartan 80 mg tablet 80 mg PO DAILY 01/06/25 Unknown History Physical Exam Vital Signs: Last Vital Signs Temp 98.9 F 01/06/25 14:03 Pulse 84 01/06/25 14:03 Resp 19 01/06/25 14:39 BP 161/90 H 01/06/25 14:03 Pulse Ox 99 01/06/25 14:03 O2 Del Method Nasal Cannula 01/06/25 14:03 O2 Flow Rate 2 01/06/25 14:03 BMI result Body Mass Index 24.5 Const General: no acute distress, alert and awake Resp Effort & Inspection: normal respiratory effort and able to speak in complete sentences Auscultation: diminished lung sounds (diminished bases) Cardio Rate: tachycardic Rhythm: regular rhythm Heart sounds: S1 normal heart sound present, S2 normal heart sound present and Murmur heart sound present GI Palpation (GI): Soft to palpation and nontender Skin Rashes: no rashes Neuro Other: no tremor Extrem General: No edema Results Lab Results 01/06/25 12:14 01/06/25 12:14 Lab results: Chemistry 01/06/25 12:14 Sodium 138 Potassium 6.2 H* D Carbon Dioxide 19 L BUN 111 H Creatinine 14.40 H* Calcium 6.6 L D Phosphorus 7.9 H Hematology 01/06/25 12:14 WBC 6.7 Hgb 8.2 L Plt Count 125 L Assessment and Plan (1) ESRD (end stage renal disease) on dialysis: Status: Acute (2) Acute hyperkalemia: Status: Acute Plan ESRD on HD TTS, last dialyzed 01/01, missed Friday and today's HD sessions. elevated blood pressures likely related to hypervolemia from missed HD sessions- will get HD today. LUE fistula- +thrill, bruit. consult placed to vascular for malfunctioning fistula in lower arm. H&H is stable at 8.2 &24.6- pt has listed allergy to retacrit, will hold off on epo for now. potassium 6.2- lokelma 10mg now, HD today- HD RN notified. phosphorus 7.9- pt not on outpatient binders, will get HD today and reassess tomorrow. calcium 6.6- will do 3 calcium bath today mild metabolic acidosis Recommend low potassium, low sodium, low phosphorous diet. Fluid restriction 1.5L/24hours daily electrolyte and renal function studies regular blood pressure checks, daily weights, I&O monitoring Discussed with Dr Longo. Procedures Date of Service Date of Service: 01/06/25
--- NOTE | 2025-01-06 15:51 | PM.IMHP ---
History of Present Illness Date of Service: 01/06/25 Attending physician on admission: Kam Cabrera Chief Complaint: shock like pain in back This is a 39-year-old female with complicated past medical history including ESRD on hemodialysis who presents to the emergency department with complaints of back pain. Patient was admitted here at [facility] from December 30 to January 01 due to hyperkalemia and missing dialysis. It seems that she has not had dialysis since she was last in the hospital. On arrival to the emergency department her blood pressure was 210/104. Potassium noted to be 6.2. Her case was discussed with Nephrology who felt the patient should be admitted for urgent dialysis. She denies shortness of breath but reports back pain radiating to her chest as well. Per previous notes patient had frequent complaints regarding pain. In the emergency department she reported back pain which she describes as ?shock-like. ? Lumbar spine x-ray showing mild multilevel spondylosis. She received multiple doses of IV Dilaudid in the emergency department. Review of Systems Review of Systems: Yes all other systems are reviewed and are negative Constitutional: Constitutional: Denies fever(s) [facility] Medical History Chronic hypoxic respiratory failure Seizure disorder ESRD (end stage renal disease) on dialysis Social History Household Members: Significant Other and Children Housing: House Do you presently have visiting nurse or other home services: Yes (After hospital stays) Patient Tobacco Use Status: Never used Tobacco Smoked in Last 30 Days: No Use of substances other than those prescribed or required for medical reasons: No Advance Directives: No Advance Directives Information Provided: Yes Do you have a plan to hurt others: No Plan service: No Meds Allergies Allergy/AdvReac Type Severity Reaction Status Date / Time ANNA Inhibitors Allergy Unknown Verified 01/06/25 11:28 adhesive tape Allergy Unknown Verified 01/06/25 11:28 amlodipine Allergy Unknown Verified 01/06/25 11:28 angiotensin II acetate, human Allergy Itching Verified 01/06/25 11:28 Beta-Blockers Allergy Itching Verified 01/06/25 11:28 (Beta-Adrenergic Bloc cinacalcet (From Sensipar) Allergy Unknown Verified 01/06/25 11:28 clonidine Allergy Anaphylaxis Verified 01/06/25 11:28 doxazosin Allergy Anaphylaxis Verified 01/06/25 11:28 epoetin michael-epbx (From Allergy Unknown Verified 01/06/25 11:28 Retacrit) epoetin beta Allergy Unknown Verified 01/06/25 11:28 furosemide Allergy Unknown Verified 01/06/25 11:28 gabapentin Allergy Anaphylaxis Verified 01/06/25 11:28 heparin Allergy Unknown Verified 01/06/25 11:28 hydralazine Allergy Anaphylaxis Verified 01/06/25 11:28 hydroxyzine Allergy Unknown Verified 01/06/25 11:28 ibuprofen (From Motrin) Allergy Unknown Verified 01/06/25 11:28 isosorbide Allergy Unknown Verified 01/06/25 11:28 labetalol Allergy Eye Verified 01/06/25 11:28 Swelling latex Allergy Itching Verified 01/06/25 11:28 levofloxacin Allergy Itching Verified 01/06/25 11:28 lisinopril Allergy Itching Verified 01/06/25 11:28 losartan Allergy Unknown Verified 01/06/25 11:28 methocarbamol Allergy Unknown Verified 01/06/25 11:28 metoprolol Allergy Unknown Verified 01/06/25 11:28 Penicillins Allergy Hives Verified 01/06/25 11:28 prednisone Allergy Unknown Verified 01/06/25 11:28 spironolactone Allergy Itching Verified 01/06/25 11:28 tramadol Allergy Unknown Verified 01/06/25 11:28 Active Medications: Current Medications Diphenhydramine HCl (Diphenhydramine Hcl 50 Mg/Ml Vial) 50 mg IVPUSH ONCE ONE Stop: 01/06/25 19:01 Home Medications ?Medication ?Instructions ?Recorded ?Confirmed ?Last Taken ?Type carvedilol 25 mg tablet 25 mg PO BID 12/30/24 12/30/24 12/30/24 History cholecalciferol (vitamin D3) 50 50 mcg PO DAILY 12/30/24 12/30/24 12/30/24 History mcg (2,000 unit) tablet (Vitamin D3) pantoprazole 40 mg tablet,delayed 40 mg PO DAILY@0630 12/30/24 12/30/24 12/30/24 History release sodium zirconium cyclosilicate 10 10 g PO TUTHSA@1645 12/30/24 12/30/24 12/30/24 History gram oral powder packet (Lokelma) sucralfate 1 gram tablet 1 g PO DAILY PRN Stomach Upset 12/30/24 12/30/24 12/30/24 History sildenafil (pulm.hypertension) 20 20 mg PO TID 01/06/25 Unknown History mg tablet valsartan 80 mg tablet 80 mg PO DAILY 01/06/25 Unknown History Physical Exam Vital Signs and Narrative: Vital Signs: Last Vital Signs Temp 98.9 F 01/06/25 14:03 Pulse 84 01/06/25 14:03 Resp 19 01/06/25 14:39 BP 161/90 H 01/06/25 14:03 Pulse Ox 99 01/06/25 14:03 O2 Del Method Nasal Cannula 01/06/25 14:03 O2 Flow Rate 2 01/06/25 14:03 BMI result Body Mass Index 24.5 Const: General: comfortable, no acute distress, alert and awake Nutritional Appearance: average body habitus Orientation/consciousness: patient oriented x3 Resp: Effort & Inspection: normal respiratory effort, able to speak in complete sentences, no respiratory distress and no use of accessory muscles Cardio: Rate: regular rate Neuro: General: patient oriented x3 Extrem: Other: Trace pedal edema; LUE fistula present with palpable thrill Results Labs 01/06/25 12:14 01/06/25 12:14 Labs: Laboratory Results - last 24 hr 01/06/25 12:14 MCV 94.3 MCH 31.4 MCHC 33.3 RDW 15.3 Plt Count 125 L MPV 10.0 Immature Gran % (Auto) 1.2 H Neut % (Auto) 73.2 H Lymph % (Auto) 14.7 L [place] % (Auto) 6.2 Eos % (Auto) 3.8 Baso % (Auto) 0.9 Lymph # (Auto) 1.0 L [place] # (Auto) 0.4 Eos # (Auto) 0.3 Baso # (Auto) 0.1 Abs Immat Gran (auto) 0.08 H Absolute Neuts (auto) 4.9 Absolute Nucleated RBC 0.020 H Nucleated RBC % (auto) 0.3 H PT 17.5 H INR 1.5 H Anion Gap 27 H Estim Creat Clear Calc 4.8 Estimated GFR 3 Random Glucose 88 Calcium 6.6 L D Phosphorus 7.9 H Magnesium 2.6 Total Bilirubin 0.5 AST 30 ALT 24 Alkaline Phosphatase 127 H B-Natriuretic Peptide 8748 H Total Protein 7.8 Albumin 4.4 Beta HCG, Quant < 2 Influenza Type A (PCR) NEGATIVE Influenza Type B (PCR) NEGATIVE RSV RNA Qual (PCR) NEGATIVE SARS-CoV-2 RNA (RT-PCR) NEGATIVE Imaging Radiologist's Impressions: Impressions Chest X-Ray 01/06/25 14:04 IMPRESSION: Cardiomegaly. No acute cardiopulmonary abnormality. Electronically signed by: Gómez Gresham MD 01/06/2025 03:27 PM EDT RP Lumbar Spine X-Ray 01/06/25 14:12 IMPRESSION: Mild multilevel spondylosis. Electronically signed by: Logan Valentino MD 01/06/2025 03:30 PM EDT RP Assessment and Plan (1) ESRD (end stage renal disease) on dialysis: Status: Acute (2) Acute hyperkalemia: Status: Acute Plan This is a 39/F with ESRD, chronic respiratory failure, history of pericardial effusion, pulmonary hypertension, chronic back pain, seizure disorder, multiple left upper extremity fistula revisions, recent admission for missing dialysis and possible seizures who presented due to back pain found to have hyperkalemia and uncontrolled hypertension being admitted for urgent dialysis. ESRD HD TTS Noncompliant with dialysis, last HD / BP 200 systolic on arrival, potassium 6.2-plan for urgent dialysis today Lokelma x1 given Nephrology following LUE fistula s/p multiple revisions appears to be functioning, was seen by vascular surgery on previous admission and deemed not to need any surgical intervention Acute Hyperkalemia Due to above Lokelma x1 follow BMP Uncontrolled hypertension Improved in the ED with no acute intervention Should improve further with dialysis Continue baseline med reconciliation has been completed Seizure d/o continue Keppra -500 mg daily with an additional 250 mg dose following dialysis on dialysis days Seen by neurology on last admission Chronic Restp failure d/t chf, pulm HTN continue baseline O2 Anemia of chronic disease H/H near baseline No overt bleeding noted Documented allergy to Procrit Follow CBC Chronic back pain Lumbar spine x-ray showing mild multilevel spondylosis Continue baseline oral oxycodone P.r.n. IV Dilaudid for breakthrough severe pain Numerous medication allergies consider trial of Flexeril HTN resume home meds after med rec Full code DVT prophylaxis: early ambulation, declines compression stockings and has reported allergy to heparin Quality Stroke Does the patient have a stroke diagnosis?: No VTE Prior VTE?: No VTE Risk Level:: Medical - moderate - high VTE Device Contraindication: N/A - Device Ordered VTE Drug Contraindication: N/A - Med Ordered
[2025-01-06 17:11] VITALS: BP 168/88; PULSE 72; RESP 12; TEMP 36.6; O2SAT 97
[2025-01-06] MEDS: 0.9 % Sodium Chloride Flush 3 ML SYRINGE IVFLUSH ×2 (17:21→23:48)
--- NOTE | 2025-01-06 17:43 | PHA.MEDREC ---
Addendum entered by Mia Sabillon RPh 01/06/25 18:09: [facility] reviewed Original Note: Pharmacy Consult ? Medication Reconciliation Pharmacy has completed the medication reconciliation. Spoke to patient to confirm med list. Patient states she is no longer taking Valsartan 80 mg due to an allergic reaction. Patient confirmed she takes Levetiracetam 500 mg daily and Levetiracetam 250 mg on Friday, Friday and Friday after dialysis., Lokelma 10 g daily, even through claims has every Friday, Friday and Friday, Nifedipine 30 mg QAM and Nifedipine 60 mg at bedtime, however claims has Nifedipine 60 mg at bedtime, Sildenafil 20 mg BID, even though claims has Sildenafil 20 mg TID. Patient states she had all her morning medications today at 9:00am.
--- NOTE | 2025-01-06 18:01 | PC.NURSE ---
Patient at dialysis
[2025-01-06 22:35] VITALS: BMI 24.2
[2025-01-07] VITALS (7 sets, daily range): BP systolic 163–193; BP diastolic 70–112; PULSE 69–80; RESP 17–20; TEMP 36.4–37.2; O2SAT 93–100
[2025-01-07 07:57] LABS: Hematocrit 23.6 % (37.0-47.0); Hemoglobin 7.5 g/dl (12.0-16.0); Mean Corpuscular HGB Conc 31.8 g/dl (31.0-35.0); Mean Corpuscular Hemoglobin 30.6 pg (27.0-33.0); Mean Corpuscular Volume 96.3 fL (80.0-98.0); NRBC Abs Auto 0.000 X10*3/uL (0.0-0.012); NRBC Pct Auto 0.0 /100WBC (0.0-0.2); Platelet Count 114 X10*3/uL (160-400); Red Blood Count 2.45 X10*6/uL (4.20-5.50); White Blood Count 5.6 X10*3/uL (4.8-10.8)
[2025-01-07] MEDS: 0.9 % Sodium Chloride Flush 3 ML SYRINGE IVFLUSH ×2 (08:27→22:17)
[2025-01-07] MEDS: NIFEdipine ER 30 MG TAB.ER.24 PO (08:28)
[2025-01-07 08:29] LABS: Anion Gap 19 (12-20); Blood Urea Nitrogen 41 mg/dL (9-16); Calcium 7.9 mg/dL (8.4-10.2); Carbon Dioxide 25 mmol/L (22-29); Chloride 100 mmol/L (96-108); Creatinine Clr Calc Pharmacy 8.8; Estimated Glomerular Filt Rate 6; Potassium 4.4 mmol/L (3.3-5.1); Sodium 140 mmol/L (135-145)
--- NOTE | 2025-01-07 08:49 | MHC.CM.PN ---
CM met with Patient at bedside and addressed IMM with her, providing Patient with the original and a copy has been placed on the chart. Patient lives in a house with her Mother/HCP/Aaliyah, 12 year old Son, and her Partner/Howard who will transport to home at time of dc. Patient has a [employer] 20 hours/week, home O2 from [facility] and HD @ [facility] in [place] Q T//FRI. Home/resume said services is the goal and CM has initiated and will follow for dc planning. PCP is Dr. Kassie Reyna and Partner will transport to home at time of dc.
--- NOTE | 2025-01-07 09:56 | PM.PNNEP ---
Subjective Subjective Date of Service: 01/07/25 Interval history: Following for management of ESRD on HD. She is here after missing dialysis after discharge from previous admission on 01/01 (last dialysis 12/31). She states she missed due to pain in her back and black-out episodes. Reports today she has continued headache and back pain. Denies shortness of breath. electrolytes have normalized, creatinine has returned to level she was with last discharge. Physical Exam Vital Signs: Vital Signs: Last Vital Signs Temp 98.0 F 01/07/25 07:42 Pulse 72 01/07/25 07:42 Resp 17 01/07/25 07:42 BP 180/107 H 01/07/25 07:42 Pulse Ox 95 01/07/25 07:42 O2 Del Method Nasal Cannula 01/07/25 07:42 O2 Flow Rate 2 01/07/25 07:42 BMI result Body Mass Index 24.2 Const: General: no acute distress, alert and awake Resp: Effort & Inspection: normal respiratory effort and able to speak in complete sentences Auscultation: clear to auscultation bilaterally Cardio: Rate: regular rate Rhythm: regular rhythm Heart sounds: S1 normal heart sound present, S2 normal heart sound present and Murmur heart sound present GI: Palpation (GI): Soft to palpation and nontender Skin: Rashes: no rashes Extrem: General: No edema Objective Data Labs 01/07/25 07:07 01/07/25 07:07 Labs: Laboratory Results - last 24 hr 01/06/25 01/07/25 12:14 07:07 WBC 6.7 5.6 RBC 2.61 L 2.45 L Hgb 8.2 L 7.5 L Hct 24.6 L 23.6 L MCV 94.3 96.3 MCH 31.4 30.6 MCHC 33.3 31.8 RDW 15.3 15.2 Plt Count 125 L 114 L MPV 10.0 10.1 Immature Gran % (Auto) 1.2 H Neut % (Auto) 73.2 H Lymph % (Auto) 14.7 L [place] % (Auto) 6.2 Eos % (Auto) 3.8 Baso % (Auto) 0.9 Lymph # (Auto) 1.0 L [place] # (Auto) 0.4 Eos # (Auto) 0.3 Baso # (Auto) 0.1 Abs Immat Gran (auto) 0.08 H Absolute Neuts (auto) 4.9 Absolute Nucleated RBC 0.020 H 0.000 Nucleated RBC % (auto) 0.3 H 0.0 PT 17.5 H INR 1.5 H Sodium 138 140 Potassium 6.2 H* D 4.4 D Chloride 98 100 Carbon Dioxide 19 L 25 Anion Gap 27 H 19 BUN 111 H 41 H Creatinine 14.40 H* 7.78 H* Estim Creat Clear Calc 4.8 8.8 Estimated GFR 3 6 Random Glucose 88 79 Calcium 6.6 L D 7.9 L D Phosphorus 7.9 H 4.8 H Magnesium 2.6 Total Bilirubin 0.5 AST 30 ALT 24 Alkaline Phosphatase 127 H Troponin I High Sens 35.6 H D B-Natriuretic Peptide 8748 H Total Protein 7.8 Albumin 4.4 Beta HCG, Quant < 2 Influenza Type A (PCR) NEGATIVE Influenza Type B (PCR) NEGATIVE RSV RNA Qual (PCR) NEGATIVE SARS-CoV-2 RNA (RT-PCR) NEGATIVE Procedures Date of Service Date of Service: 01/07/25 Assessment & Plan Assessment and plan (1) ESRD (end stage renal disease) on dialysis: Status: Acute Plan ESRD on HD TTS, dialyzed yesterday 01/06. blood pressures remain elevated- may be pain-related given pt complaints of severe pain. Will increase nifedipine to 60mg BID. LUE fistula- +thrill, bruit. H&H is stable at 7.5 & 23.6- pt has listed allergy to retacrit, will hold off on epo for now. potassium 4.4 phosphorus 7.9- pt not on outpatient binders, will get HD today and reassess tomorrow. calcium 7.9, phos 4.8 no metabolic acidosis Recommend low potassium, low sodium, low phosphorous diet. Fluid restriction 1.5L/24hours patient is ok for discharge from a renal standpoint- she should continue outpatient dialysis as per her regular schedule. Discussed with Dr Diaz. Time Spent With Patient Time: Total time managing care of this patient today ____ minutes. Progress Note: Quality Stroke Does the patient have a stroke diagnosis?: No
--- NOTE | 2025-01-07 12:58 | HO.PM.IMPN ---
Subjective Subjective Date of Service: 01/07/25 Interval History: The patient reports sufffering with significant pain overnight. On evaluation today, the patient is pleasantly comunicative without discomfort or expression of pain. Was eager for HD session today. We discussed her analgesia regimen; discussed transition from IV to PO. PT evaluation pending for her as well., Review of Systems Review of Systems: Yes all other systems are reviewed and are negative Physical Exam Exam: Exam: General: A&O x3, oriented to time place person and siutaion, comfortable, no pain Cardiac: S1, S2 auscultated with no S3/4, no MRG. Well perfused. Respiratory: Normal breath sounds auscultated throughout all lung zones, without wheezing, rales. Normal rate. GI/ : No abdominal pain on palpation, no masses or distentions. MSK: Normal ambulation without pain at bony prominences or musculature. Fistula noted on left arm functional. Reporting significant pain on palpation of the spine and paralumbar support musculature. Neurological: Normal neurological examination on overview, without obvious CN II-XII abnormalities. Vital Signs: Vital Signs: Last Vital Signs Temp 98.9 F 01/07/25 11:37 Pulse 71 01/07/25 11:37 Resp 18 01/07/25 11:37 BP 189/98 H 01/07/25 11:37 Pulse Ox 93 01/07/25 11:37 O2 Del Method Nasal Cannula 01/07/25 11:37 O2 Flow Rate 2 01/07/25 11:37 BMI result Body Mass Index 24.2 Objective Data Active Medications Acetaminophen (Acetaminophen 325 Mg Tablet) 650 mg PO Q6H PRN PRN Reason: Pain, Mild 1-3,fever,headache Last Admin: 01/07/25 03:31 Dose: 650 mg Documented By: MARY Calcium Carbonate (Calcium Carbonate 750 Mg Tab.Chew) 750 mg PO Q4H PRN PRN Reason: Heartburn Carvedilol (Carvedilol 25 Mg Tablet) 25 mg PO BID [facility]; Protocol Last Admin: 01/07/25 08:27 Dose: 25 mg Documented By: RONALDO Hydromorphone HCl (Hydromorphone Hcl 1 Mg/Ml Syringe) 1 mg IVPUSH Q4H PRN; Protocol PRN Reason: Pain, Severe (Pain Scale 7-10) Last Admin: 01/07/25 10:09 Dose: 1 mg Documented By: RONALDO Levetiracetam (Levetiracetam 500 Mg Tablet) 500 mg PO DAILY [facility] Last Admin: 01/07/25 08:27 Dose: 500 mg Documented By: RONALDO Levetiracetam (Levetiracetam 250 Mg Tablet) 250 mg PO MoWeFr [facility] Last Admin: 01/07/25 11:23 Dose: Not Given Documented By: RONALDO Non-Admin Reason: dialysis not preformed Magnesium Hydroxide (Milk Of Magnesia 30 Ml Oral.Susp) 30 ml PO DAILY PRN PRN Reason: Constipation Melatonin (Melatonin 3 Mg Tablet) 6 mg PO BEDTIME PRN PRN Reason: Insomnia Nifedipine (Nifedipine Er 30 Mg Tab.Er.24) 60 mg PO BEDTIME [facility]; Protocol Nifedipine (Nifedipine Er 30 Mg Tab.Er.24) 30 mg PO DAILY [facility]; Protocol Last Admin: 01/07/25 08:28 Dose: 30 mg Documented By: RONALDO Omeprazole (Omeprazole 20 Mg Capsule.Dr) 20 mg PO DAILY@0630 [facility] Oxycodone HCl (Oxycodone Hcl Immed Release 15 Mg Tablet) 15 mg PO Q4H PRN PRN Reason: Pain, Moderate(Pain Scale 4-6) Sildenafil Citrate (Sildenafil Citrate 20 Mg Tablet) 20 mg PO BID [facility] Last Admin: 01/07/25 08:27 Dose: 20 mg Documented By: RONALDO Sodium Chloride (0.9 % Sodium Chloride Flush 3 Ml Syringe) 3 ml IVFLUSH QSHIFT [facility] Last Admin: 01/07/25 08:27 Dose: 3 ml Documented By: RONALDO Sucralfate (Sucralfate 1 Gm Tablet) 1 gm PO DAILY PRN PRN Reason: Stomach Upset Vitamin D (Cholecalciferol (Vitamin D3) 25 Mcg Tablet) 50 mcg PO DAILY [facility] Last Admin: 01/07/25 08:27 Dose: 50 mcg Documented By: RONALDO Labs 01/07/25 07:07 01/07/25 07:07 Labs: Laboratory Results - last 24 hr 01/06/25 01/07/25 12:14 07:07 MCV 96.3 MCH 30.6 MCHC 31.8 RDW 15.2 Plt Count 114 L MPV 10.1 Absolute Nucleated RBC 0.000 Nucleated RBC % (auto) 0.0 Anion Gap 27 H 19 Estim Creat Clear Calc 4.8 8.8 Estimated GFR 3 6 Random Glucose 88 79 Calcium 6.6 L D 7.9 L D Phosphorus 7.9 H 4.8 H Magnesium 2.6 Total Bilirubin 0.5 AST 30 ALT 24 Alkaline Phosphatase 127 H B-Natriuretic Peptide 8748 H Total Protein 7.8 Albumin 4.4 Influenza Type A (PCR) NEGATIVE Influenza Type B (PCR) NEGATIVE RSV RNA Qual (PCR) NEGATIVE SARS-CoV-2 RNA (RT-PCR) NEGATIVE Assessment and Plan (1) ESRD (end stage renal disease) on dialysis: Status: Acute (2) Acute hyperkalemia: Status: Acute (3) Lumbar back pain: Status: Acute Plan 39/F with ESRD, chronic respiratory failure, history of pericardial effusion, pulmonary hypertension, chronic back pain, seizure disorder, multiple left upper extremity fistula revisions, recent admission for missing dialysis and possible seizures who presented due to back pain found to have hyperkalemia and uncontrolled hypertension being admitted for urgent dialysis. ESRD HD TTS Noncompliant with dialysis, last HD 01/01 BP 200 systolic on arrival, potassium 6.2-plan for HD inpatient [place] [id number] given Nephrology following LUE fistula s/p multiple revisions appears to be functioning, was seen by vascular surgery on previous admission and deemed not to need any surgical intervention Hyperkalemia Monitoring BMP closely Patient to undergo scheduled HD. Uncontrolled hypertension Improved in the ED with no acute intervention Should improve further with dialysis Continue baseline med reconciliation has been completed Seizure d/o continue Keppra -500 mg daily with an additional 250 mg dose following dialysis on dialysis days Seen by neurology on last admission Chronic Restp failure d/t chf, pulm HTN continue baseline O2 Anemia of chronic disease H/H near baseline No overt bleeding noted Documented allergy to Procrit Follow CBC Chronic back pain Lumbar spine x-ray showing mild multilevel spondylosis Continue baseline oral oxycodone P.r.n. IV Dilaudid for breakthrough severe pain Numerous medication allergies consider trial of Flexeril To transition from IV dilaudid to oral analgesics while inpatient. HTN resume home meds after med rec Full code DVT prophylaxis: early ambulation, declines compression stockings and has reported allergy to heparin Total time managing care of this patient today: 35 minutes. Quality Stroke Does the patient have a stroke diagnosis?: No VTE Prior VTE?: No VTE Risk Level:: Medical - moderate - high VTE Device Contraindication: Patient Refused VTE Drug Contraindication: Patient Refused
[2025-01-07] MEDS: NIFEdipine ER 30 MG TAB.ER.24 60 MG PO (19:54)
[2025-01-07] MEDS: oxyCODONE HCl Immed Release 15 MG TABLET PO (19:54)
[2025-01-08] MEDS: oxyCODONE HCl Immed Release 15 MG TABLET PO ×2 (01:39→09:12)
--- NOTE | 2025-01-08 02:50 | P.EN_ITS ---
Event Note Date of Service: 01/08/25 Event Note: Patient is seen with Dr. Powell for complaints of acute pain and request for IV Benadryl due to itching. Patient also complaining of pain and swelling in the upper left arm, location where her fistula was revised this past November 2024. Patient states she did not go through dialysis today due to access issues but records indicate that she did have a successful treatment. Blood pressure is notably high. Patient aware of current blood pressure and has concerns about the overall picture and that no one is listening. Patient has nifedipine and this was recently increased and patient has tolerated this medication so far. This flex o writer operator is a previous dialysis nurse and observed patient's left upper extremity fistula. Arm is swollen and patient experiences pain with palpation. Pt does have audible bruit and palpable thrill which is reassuring. There are anuerysmal changes noted but her current nephrology/ vascular team are managing pt's current needs. Pt did express overall fears about the access issues and limited options at this time. Patient states she plans to see her transplant team in [place] on Friday of next week. This flex o writer operator discussed with pt starting Cymbalta as an option to help with chronic pain and also the stress of dealing with her every day health concerns. Pt agreeable to starting in the AM. Dr. Childress agreeable with plan as well. Dose will be 30 mg daily for 7 days and then patient can increase to 60 mg daily if well tolerated. ECg from 01/06 does note a prolonged Qtc 510 and literature states monitoring will be necessary in the outpatient setting. Pt's magnesium is 2.6 currently. WIll order ECG in AM prior to administration of medication. Discontinue if truly contraindicated based on AM ECG. Spent 15 mins talking with pt, trying to provide reassurance and took some time to listen to her concerns. Conclusion was no IV benadryl and offered 50 mg po benadryl. Patient let the nurse know that she is allergic to oral Benadryl but not IV Benadryl. Dr. Childress and this flex o writer operator declined ordering IV Benadryl at this time. In addition, will not order IV dilaudid and pt can continue to use her Oxycodone prn as patient may discharge in the very near future. Pt states she has seen a pain affiliate marketing specialist in the past. We did discuss option of long acting oxycodone that could help her with pain mgmt, but that we could not start that here. Pt would need to see pain affiliate marketing specialist as an outpatient. Time Spent With Patient Time: Total time managing care of this patient today ____ minutes.
[2025-01-08 07:48] VITALS: BP 174/94; PULSE 77; RESP 17; TEMP 36.8; O2SAT 98
[2025-01-08] MEDS: 0.9 % Sodium Chloride Flush 3 ML SYRINGE IVFLUSH ×3 (09:12→20:42)
[2025-01-08] MEDS: NIFEdipine ER 30 MG TAB.ER.24 60 MG PO ×2 (09:12→20:42)
[2025-01-08 11:41] VITALS: BP 165/76; PULSE 83; RESP 17; TEMP 37; O2SAT 99
--- NOTE | 2025-01-08 16:21 | HO.PM.IMPN ---
Subjective Subjective Date of Service: 01/08/25 Interval History: Events from last night reviewed. Day team RNs and myself reviewed the patient by bedside. The patient has expressed displeasure with events from last night - reporting everyone ignored her and dismissed her care. Defensiveness was noted and agitation with statements attempting to reassure her during verbal review with her today. Attempted to reassure patient and review plan from yesterday and events overnight. The patient adament for IV dilaudid, reporting she would refuse HD if it was not given. Reviewed plan with patient regarding IV opioid administration, IV benadryl administration and transition to PO in anticipation for discharge post HD. The patient reports she is not ready for DC due to infiltraiton of her fistula, as well as pain & swelling. Pain expressed by patient on minimal touch of fistula, however; bruit auscultated at the distal and proximal ends, with good strong flow, no bruising, swelling or erythema noted at the fistula site. Reviewed findings with patient. Discussed case with RN, Applications System Analyst and Addiction Medicine regarding analgesia regimen and challenges with getting patient ready for HD. Review of Systems Review of Systems: Yes Unobtainable due to mental condition Constitutional Constitutional: Reports anorexia, Reports body ache(s), Reports daytime sleepiness, Reports difficulty sleeping, Reports excessive sweating, Reports fatigue, Reports lethargy, Reports malaise and Reports weakness Cardiovascular Cardiovascular: Reports cool extremities, Reports painful fingertips, Reports chest pain, Reports chest pain with activity, Reports syncope, Reports edema and Reports dyspnea Respiratory Respiratory: Reports dyspnea Musculoskeletal Musculoskeletal: Reports myalgias, Reports arthralgias, Reports joint swelling and Reports limited range of motion Neurologic Neurologic: Reports syncope and Reports weakness Psychiatric Psychiatric: Reports irritability Endocrine Endocrine: Reports excessive sweating and Reports fatigue Physical Exam Exam: Exam: General: A&O x3, oriented to time place person and siutaion, comfortable, no pain Cardiac: S1, S2 auscultated with no S3/4, no MRG. Well perfused. Reporting significant pain at the LUE fistula on minimal palpation (skin); bruit auscultated at proximal and distal ends, no swelling or fluctuance, no erythema, no loss of digit movement or ROM Respiratory: Normal breath sounds auscultated throughout all lung zones, without wheezing, rales. Normal rate. GI/ : No abdominal pain on palpation, no masses or distentions. MSK: Normal ambulation without pain at bony prominences or musculature. Fistula noted on left arm functional. Reporting significant pain on palpation of the spine and paralumbar support musculature. Neurological: Normal neurological examination on overview, without obvious CN II-XII abnormalities. Vital Signs: Vital Signs: Last Vital Signs Temp 98.6 F 01/08/25 11:41 Pulse 83 01/08/25 11:41 Resp 17 01/08/25 11:41 BP 165/76 H 01/08/25 11:41 Pulse Ox 99 01/08/25 11:41 O2 Del Method Nasal Cannula 01/08/25 11:41 O2 Flow Rate 2 01/08/25 11:41 BMI result Body Mass Index 24.2 Objective Data Active Medications Acetaminophen (Acetaminophen 325 Mg Tablet) 650 mg PO Q6H PRN PRN Reason: Pain, Mild 1-3,fever,headache Last Admin: 01/07/25 03:31 Dose: 650 mg Documented By: MARY Calcium Carbonate (Calcium Carbonate 750 Mg Tab.Chew) 750 mg PO Q4H PRN PRN Reason: Heartburn Carvedilol (Carvedilol 25 Mg Tablet) 25 mg PO BID [facility]; Protocol Last Admin: 01/08/25 09:11 Dose: 25 mg Documented By: BRITTANI Duloxetine HCl (Duloxetine Hcl 30 Mg Capsule.Dr) 30 mg PO DAILY [facility] Stop: 01/15/25 08:59 Last Admin: 01/08/25 09:22 Dose: Not Given Documented By: BRITTANI Non-Admin Reason: Patient Refused Levetiracetam (Levetiracetam 500 Mg Tablet) 500 mg PO DAILY [facility] Last Admin: 01/08/25 09:11 Dose: 500 mg Documented By: BRITTANI Levetiracetam (Levetiracetam 250 Mg Tablet) 250 mg PO MoWeFr [facility] Last Admin: 01/07/25 11:23 Dose: Not Given Documented By: RONALDO Non-Admin Reason: dialysis not preformed Magnesium Hydroxide (Milk Of Magnesia 30 Ml Oral.Susp) 30 ml PO DAILY PRN PRN Reason: Constipation Melatonin (Melatonin 3 Mg Tablet) 6 mg PO BEDTIME PRN PRN Reason: Insomnia Nifedipine (Nifedipine Er 30 Mg Tab.Er.24) 60 mg PO BEDTIME [facility]; Protocol Last Admin: 01/07/25 19:54 Dose: 60 mg Documented By: SAMUEL Nifedipine (Nifedipine Er 30 Mg Tab.Er.24) 60 mg PO DAILY [facility]; Protocol Last Admin: 01/08/25 09:12 Dose: 60 mg Documented By: BRITTANI Omeprazole (Omeprazole 20 Mg Capsule.Dr) 20 mg PO DAILY@0630 [facility] Last Admin: 01/08/25 06:13 Dose: Not Given Documented By: SAMUEL Non-Admin Reason: Patient Refused Oxycodone HCl (Oxycodone Hcl Immed Release 15 Mg Tablet) 15 mg PO Q4H PRN PRN Reason: Pain, Moderate(Pain Scale 4-6) Last Admin: 01/08/25 09:12 Dose: 15 mg Documented By: BRITTANI Sildenafil Citrate (Sildenafil Citrate 20 Mg Tablet) 20 mg PO BID [facility] Last Admin: 01/08/25 09:11 Dose: 20 mg Documented By: BRITTANI Sodium Chloride (0.9 % Sodium Chloride Flush 3 Ml Syringe) 3 ml IVFLUSH [facility] Last Admin: 01/08/25 09:12 Dose: 3 ml Documented By: BRITTANI Sucralfate (Sucralfate 1 Gm Tablet) 1 gm PO DAILY PRN PRN Reason: Stomach Upset Vitamin D (Cholecalciferol (Vitamin D3) 25 Mcg Tablet) 50 mcg PO DAILY [facility] Last Admin: 01/08/25 09:12 Dose: 50 mcg Documented By: BRITTANI Labs 01/07/25 07:07 01/07/25 07:07 Assessment and Plan (1) ESRD (end stage renal disease) on dialysis: Status: Acute (2) Acute hyperkalemia: Status: Acute (3) Lumbar back pain: Status: Acute (4) Seizure disorder: Status: Acute Plan 39/F with ESRD, chronic respiratory failure, history of pericardial effusion, pulmonary hypertension, chronic back pain, seizure disorder, multiple left upper extremity fistula revisions, recent admission for missing dialysis and possible seizures who presented due to back pain found to have hyperkalemia and uncontrolled hypertension being admitted for urgent dialysis. ESRD HD TTS Noncompliant with dialysis, last HD 01/01 BP 200 systolic on arrival, potassium 6.2-plan for HD inpatient [place] x1 given Nephrology following LUE fistula s/p multiple revisions appears to be functioning, was seen by vascular surgery on previous admission and deemed not to need any surgical intervention Hyperkalemia Monitoring BMP closely Patient to undergo scheduled HD. Uncontrolled hypertension Improved in the ED with no acute intervention Should improve further with dialysis Continue baseline med reconciliation has been completed Seizure d/o continue Keppra -500 mg daily with an additional 250 mg dose following dialysis on dialysis days Seen by neurology on last admission Chronic Restp failure d/t chf, pulm HTN continue baseline O2 Anemia of chronic disease H/H near baseline No overt bleeding noted Documented allergy to Procrit Follow CBC Chronic back pain Lumbar spine x-ray showing mild multilevel spondylosis Continue baseline oral oxycodone P.r.n. IV Dilaudid for breakthrough severe pain Numerous medication allergies consider trial of Flexeril Attempted to transition from IV dilaudid to oral analgesics while inpatient. The patient endorses significant distress with discontinuation of IV dilaudid; reports back pain improving (can tolerate home oxycodone dose), but due to fistula paiun, requesting IV dilaudid and IV benadryl to help. Patient refusing management with HD until IV dilaudid can be given, as per relay from RN over [place] Text. Consultation placed to Addiction medicine for assistance and clarity with management of analgesia inpatient -> outpatient. HTN resume home meds after med rec Full code DVT prophylaxis: early ambulation, declines compression stockings and has reported allergy to heparin Quality Stroke Does the patient have a stroke diagnosis?: No VTE Prior VTE?: No VTE Risk Level:: Medical - moderate - high VTE Device Contraindication: Patient Refused VTE Drug Contraindication: Patient Refused
[2025-01-08 16:57] VITALS: BP 162/70; PULSE 66; RESP 17; TEMP 36.7; O2SAT 100
--- NOTE | 2025-01-08 17:42 | PC.NURSE ---
Pt was very agitated and stated chest pain and shortness or breath. Provider notified. Pt asking for IV pain meds. All other needs met within this time. Call larsen within reach, O2 probe on pt finger.
[2025-01-08 19:21] VITALS: BP 176/84; PULSE 67; RESP 18; TEMP 36.6; O2SAT 99
[2025-01-08 23:11] VITALS: BP 157/67; PULSE 65; RESP 16; TEMP 36.5; O2SAT 97
[2025-01-09 03:10] VITALS: BP 164/79; PULSE 65; RESP 16; TEMP 36.5; O2SAT 92
[2025-01-09] MEDS: oxyCODONE HCl Immed Release 15 MG TABLET PO ×3 (06:38→22:58)
[2025-01-09 07:58] VITALS: BP 164/85; PULSE 68; RESP 17; TEMP 36.6; O2SAT 100
[2025-01-09] MEDS: NIFEdipine ER 30 MG TAB.ER.24 60 MG PO ×2 (08:21→20:56)
[2025-01-09] MEDS: 0.9 % Sodium Chloride Flush 3 ML SYRINGE IVFLUSH ×3 (08:22→20:56)
[2025-01-09 11:59] VITALS: BP 141/71; PULSE 57; RESP 17; TEMP 36.3; O2SAT 100
--- NOTE | 2025-01-09 12:43 | MHC.RECOVRN ---
T/W met with pt. in following referral received to assist with chronic opiate use for pain management. Pt A&O sitting up in bed watching TV upon my arrival. Pt has had multiple issues with her dialysis fistula and reports that as a result suffers from chronic pain. Pt stated I don't know why no on believes me. I have been on the same amount of pain meds for 7 years and have never abused them . T/W tried to talk with pt. and discuss tolerance to opiates and pt. just spoke over me stating I know all about that . T/W attempted to encourage and offer resources for pain management and pt. stated I can not do a lot of that because then I will be taken off the transplant list . I attempted to discuss with her the recent reasons fro ED visits and specialists in the community that could help her manage these issues to decrease her need for ED visits. Pt was very evasive re: community providers and resistant to coordination of care/collaboration. She did agree to electrostatic paint operator referral (in the community) for which I messaged covering to place for pt. upon D/C. Pt seems to have a good relationship with her PCP Kassie Reyna and it may be beneficial to pt's overall care to collaborate with the PCP for ongoing treatment. Also a referral to community case management if pt does not already have may be beneficial. No other needs for ACS at this time. T/W available as needed. Message sent to Kam Cabrera with above information
[2025-01-09 15:55] VITALS: BP 128/71; PULSE 65; RESP 17; TEMP 36.5; O2SAT 98
--- NOTE | 2025-01-09 16:30 | P.PNIM_ITS ---
Subjective Subjective Date of Service: 01/09/25 Interval History: Patient has complaints of pain around left shoulder and fistula. Discussed etiology of pain in depth. Discussed analgesia in depth. Acknowledged the patient's pain, as well as the psychosocial environment that contributes to its exacerbation. Discussed management of chronic pain as inpatient and outpatient settings. Review of Systems Review of Systems: Yes all other systems are reviewed and are negative Constitutional Constitutional: Reports anorexia, Reports body ache(s), Reports daytime sleepiness, Reports difficulty sleeping, Reports excessive sweating, Reports fatigue, Reports lethargy, Reports malaise and Reports weakness Cardiovascular Cardiovascular: Reports cool extremities, Reports painful fingertips, Reports chest pain, Reports chest pain with activity, Reports syncope, Reports edema and Reports dyspnea Respiratory Respiratory: Reports dyspnea Musculoskeletal Musculoskeletal: Reports myalgias, Reports arthralgias, Reports joint swelling and Reports limited range of motion Neurologic Neurologic: Reports syncope and Reports weakness Psychiatric Psychiatric: Reports irritability Endocrine Endocrine: Reports excessive sweating and Reports fatigue Physical Exam 2 Exam: Exam: General: A&O x3, oriented to time place person and siutaion, comfortable, no pain Cardiac: S1, S2 auscultated with no S3/4, no MRG. Well perfused. Reporting significant pain at the LUE fistula on minimal palpation (skin); bruit auscultated at proximal and distal ends, no swelling or fluctuance, no erythema, no loss of digit movement or ROM Respiratory: Normal breath sounds auscultated throughout all lung zones, without wheezing, rales. Normal rate. GI/ : No abdominal pain on palpation, no masses or distentions. MSK: Normal ambulation without pain at bony prominences or musculature. Fistula noted on left arm functional. Reporting significant pain on palpation of the spine and paralumbar support musculature. Neurological: Normal neurological examination on overview, without obvious CN II-XII abnormalities. Vital Signs: Vital Signs: Last Vital Signs Temp 97.7 F 01/09/25 15:55 Pulse 65 01/09/25 15:55 Resp 17 01/09/25 15:55 BP 128/71 01/09/25 15:55 Pulse Ox 98 01/09/25 15:55 O2 Del Method Nasal Cannula 01/09/25 15:55 O2 Flow Rate 2 01/09/25 15:55 BMI result Body Mass Index 24.2 Objective Data Active Medications Acetaminophen (Acetaminophen 325 Mg Tablet) 650 mg PO Q6H PRN PRN Reason: Pain, Mild 1-3,fever,headache Last Admin: 01/09/25 13:17 Dose: 650 mg Documented By: ANGI Calcium Carbonate (Calcium Carbonate 750 Mg Tab.Chew) 750 mg PO Q4H PRN PRN Reason: Heartburn Carvedilol (Carvedilol 25 Mg Tablet) 25 mg PO BID [facility]; Protocol Last Admin: 01/09/25 08:22 Dose: 25 mg Documented By: ANGI Duloxetine HCl (Duloxetine Hcl 30 Mg Capsule.) 30 mg PO DAILY [facility] Stop: 01/15/25 08:59 Last Admin: 01/09/25 08:25 Dose: Not Given Documented By: ANGI Non-Admin Reason: Patient Refused Hydromorphone HCl (Hydromorphone Hcl 1 Mg/Ml Syringe) 1 mg IVPUSH QID PRN; Protocol PRN Reason: Pain, Severe (Pain Scale 7-10) Last Admin: 01/09/25 13:47 Dose: 1 mg Documented By: ANGI Levetiracetam (Levetiracetam 500 Mg Tablet) 500 mg PO DAILY [facility] Last Admin: 01/09/25 08:22 Dose: 500 mg Documented By: ANGI Levetiracetam (Levetiracetam 250 Mg Tablet) 250 mg PO MoWeFr [facility] Last Admin: 01/07/25 11:23 Dose: Not Given Documented By: RONALDO Non-Admin Reason: dialysis not preformed Magnesium Hydroxide (Milk Of Magnesia 30 Ml Oral.Susp) 30 ml PO DAILY PRN PRN Reason: Constipation Melatonin (Melatonin 3 Mg Tablet) 6 mg PO BEDTIME PRN PRN Reason: Insomnia Nifedipine (Nifedipine Er 30 Mg Tab.Er.24) 60 mg PO BEDTIME [facility]; Protocol Last Admin: 01/08/25 20:42 Dose: 60 mg Documented By: ROSS Nifedipine (Nifedipine Er 30 Mg Tab.Er.24) 60 mg PO DAILY [facility]; Protocol Last Admin: 01/09/25 08:21 Dose: 60 mg Documented By: ANGI Omeprazole (Omeprazole 20 Mg Capsule.) 20 mg PO DAILY@0630 [facility] Last Admin: 01/09/25 08:32 Dose: 20 mg Documented By: ANGI Oxycodone HCl (Oxycodone Hcl Immed Release 15 Mg Tablet) 15 mg PO Q4H PRN PRN Reason: Pain, Moderate(Pain Scale 4-6) Last Admin: 01/09/25 06:38 Dose: 15 mg Sildenafil Citrate (Sildenafil Citrate 20 Mg Tablet) 20 mg PO BID [facility] Last Admin: 01/09/25 08:21 Dose: 20 mg Documented By: ANGI Sodium Chloride (0.9 % Sodium Chloride Flush 3 Ml Syringe) 3 ml IVFLUSH QSHIFT [facility] Last Admin: 01/09/25 08:22 Dose: 3 ml Documented By: ANGI Sucralfate (Sucralfate 1 Gm Tablet) 1 gm PO DAILY PRN PRN Reason: Stomach Upset Vitamin D (Cholecalciferol (Vitamin D3) 25 Mcg Tablet) 50 mcg PO DAILY [facility] Last Admin: 01/09/25 08:22 Dose: 50 mcg Documented By: ANGI Labs 01/07/25 07:07 01/07/25 07:07 Assessment and Plan (1) ESRD (end stage renal disease) on dialysis: Status: Acute (2) Lumbar back pain: Status: Acute (3) Seizure disorder: Status: Acute Plan 39/F with ESRD, chronic respiratory failure, history of pericardial effusion, pulmonary hypertension, chronic back pain, seizure disorder, multiple left upper extremity fistula revisions, recent admission for missing dialysis and possible seizures who presented due to back pain found to have hyperkalemia and uncontrolled hypertension being admitted for urgent dialysis. ESRD HD TTS Noncompliant with dialysis, last HD 01/01 BP 200 systolic on arrival, potassium 6.2-plan for HD inpatient [address] Nephrology following LUE fistula s/p multiple revisions appears to be functioning, was seen by vascular surgery on previous admission and deemed not to need any surgical intervention Hyperkalemia Monitoring BMP closely Patient to undergo scheduled HD. Uncontrolled hypertension Improved in the ED with no acute intervention Should improve further with dialysis Continue baseline med reconciliation has been completed Seizure d/o continue Keppra -500 mg daily with an additional 250 mg dose following dialysis on dialysis days Seen by neurology on last admission Chronic Restp failure d/t chf, pulm HTN continue baseline O2 Anemia of chronic disease H/H near baseline No overt bleeding noted Documented allergy to Procrit Follow CBC Chronic back pain Left shoulder/chest pain; fibromyalgia, pec major tendonitis, nerve impingement Lumbar spine x-ray showing mild multilevel spondylosis Consultation placed to Addiction medicine for assistance and clarity with management of analgesia inpatient -> outpatient. Discussion regarding transition from IV to PO and alternative analgesics to manage multifactorial pain. PLAN - Continue baseline oral oxycodone - Continue IV dilaudid for now - Outpatient referral to pain management - Collaboration with PCP on discharge HTN resume home meds after med rec Full code DVT prophylaxis: early ambulation, declines compression stockings and has reported allergy to heparin Total time managing care of this patient today: 60 minutes. Quality Stroke Does the patient have a stroke diagnosis?: No VTE Prior VTE?: No VTE Risk Level:: Medical - moderate - high VTE Device Contraindication: Patient Refused VTE Drug Contraindication: Patient Refused
[2025-01-09 20:00] VITALS: BP 156/80; PULSE 62; RESP 12; TEMP 36.7; O2SAT 100
[2025-01-10] VITALS: BP 161/91; PULSE 70; RESP 12; TEMP 36.6; O2SAT 97
[2025-01-10 04:00] VITALS: BP 151/82; PULSE 64; RESP 12; TEMP 36.9; O2SAT 100
[2025-01-10] MEDS: oxyCODONE HCl Immed Release 15 MG TABLET PO ×2 (05:57→12:28)
[2025-01-10] MEDS: 0.9 % Sodium Chloride Flush 3 ML SYRINGE IVFLUSH (08:34)
[2025-01-10 09:32] LABS: Anion Gap 19 (12-20); Blood Urea Nitrogen 45 mg/dL (9-16); Calcium 7.4 mg/dL (8.4-10.2); Carbon Dioxide 26 mmol/L (22-29); Chloride 100 mmol/L (96-108); Creatinine Clr Calc Pharmacy 8.5; Estimated Glomerular Filt Rate 6; Potassium 4.8 mmol/L (3.3-5.1); Sodium 140 mmol/L (135-145)
[2025-01-10 09:45] VITALS: BP 137/80; PULSE 69; RESP 18; TEMP 36.6; O2SAT 99
[2025-01-10] MEDS: NIFEdipine ER 30 MG TAB.ER.24 60 MG PO (09:47)
--- NOTE | 2025-01-10 10:15 | P.PNNP_ITS ---
Subjective Subjective Date of Service: 01/10/25 Interval history: Following for management of ESRD on HD. She is here after missing dialysis after discharge from previous admission on 01/01 (last dialysis 12/31). She states she missed due to pain in her back and black-out episodes. Reports today she is having pain at her fistula site and swelling since Friday after cannulation attempt. electrolytes have normalized, creatinine has returned to baseline. Last HD satru, 01/08 (pt TTS as outpatient). Physical Exam 2 Vital Signs: Vital Signs: Last Vital Signs Temp 97.4 F 01/10/25 12:00 Pulse 67 01/10/25 12:00 Resp 18 01/10/25 12:00 BP 132/80 01/10/25 12:00 Pulse Ox 92 01/10/25 12:00 O2 Del Method Room Air 01/10/25 12:00 O2 Flow Rate 2 01/10/25 09:45 BMI result Body Mass Index 24.2 Const: General: no acute distress, alert and awake Resp: Effort & Inspection: normal respiratory effort and able to speak in complete sentences Auscultation: clear to auscultation bilaterally Cardio: Rate: regular rate Rhythm: regular rhythm Heart sounds: S1 normal heart sound present, S2 normal heart sound present and Murmur heart sound present GI: Palpation (GI): Soft to palpation and nontender Skin: Rashes: no rashes Extrem: General: No edema and Yes AV fistula (LUE AV fistula- no erythema, some swelling. +thrill, +bruit. no drainage.) Objective Data Labs 01/07/25 07:07 01/10/25 08:52 Labs: Laboratory Results - last 24 hr 01/10/25 01/10/25 08:51 08:52 Hold Purple Top SEE NOTE Sodium 140 Potassium 4.8 Chloride 100 Carbon Dioxide 26 Anion Gap 19 BUN 45 H Creatinine 8.06 H* Estim Creat Clear Calc 8.5 Estimated GFR 6 Random Glucose 105 Calcium 7.4 L D Phosphorus 4.7 H Procedures Date of Service Date of Service: 01/10/25 Assessment & Plan Assessment and plan (1) ESRD (end stage renal disease) on dialysis: Status: Acute Plan ESRD on HD TTS, dialyzed yesterday 01/06. blood pressures acceptable at this time, most recent 132/80. Continue current antihypertensive regimen. LUE fistula- +thrill, bruit.- some swelling of upper arm, no erythema around AV fistula. Discussed cool compressres. Placed vascular access consult for evaluation. H&H 7.5 & 23.6- pt has listed allergy to retacrit, will hold off on epo for now. potassium 4.8 phosphorus 7.9- pt not on outpatient binders, will get HD today and reassess tomorrow. calcium 7.4, phos 4.7 no metabolic acidosis Recommend low potassium, low sodium, low phosphorous diet. Fluid restriction 1.5L/24hours patient is ok for discharge from a renal standpoint- she should continue outpatient dialysis as per her regular schedule. Discussed with Dr Longo. Time Spent With Patient Time: Total time managing care of this patient today ____ minutes. Progress Note: Quality Stroke Does the patient have a stroke diagnosis?: No
[2025-01-10 12:00] VITALS: BP 132/80; PULSE 67; RESP 18; TEMP 36.3; O2SAT 92
--- NOTE | 2025-01-10 12:19 | PM.DS ---
DS: Providers Provider Date of Service: 01/10/25 Date of admission: 01/06/25 15:21 Date of discharge: 01/10/25 Primary care physician: Kassie Reyna MD Consults: 01/08/25 11:39 Addiction Medicine Provider Routine Consulting Provider: Addiction Covering Reason for consultation: assistance with pain management;/ regimen; chronic opioid use pain outpt 01/10/25 10:14 Consult to Vascular Surgery Routine Consulting Provider: [facility] [place] [facility] Reason for consultation: AV Fistula left upper extremity pain, swelling Has provider been notified: No DS: Diagnosis Discharge Diagnosis (1) ESRD (end stage renal disease) on dialysis: Status: Acute (2) Lumbar back pain: Status: Acute (3) Seizure disorder: Status: Acute DS: Summary Hospital Course Hospital Course: admission h and p hief Complaint: shock like pain in back This is a 39-year-old female with complicated past medical history including ESRD on hemodialysis who presents to the emergency department with complaints of back pain. Patient was admitted here at [facility] from December 30 to January 01 due to hyperkalemia and missing dialysis. It seems that she has not had dialysis since she was last in the hospital. On arrival to the emergency department her blood pressure was 210/104. Potassium noted to be 6.2. Her case was discussed with Nephrology who felt the patient should be admitted for urgent dialysis. She denies shortness of breath but reports back pain radiating to her chest as well. Per previous notes patient had frequent complaints regarding pain. In the emergency department she reported back pain which she describes as ?shock-like. ? Lumbar spine x-ray showing mild multilevel spondylosis. She received multiple doses of IV Dilaudid in the emergency department. hospital course She presented with pain in the back and had missed dialysis and potassium was 6,. she was admitted and urgently dialysis, her potassium is now normal. As for back pain, xray showed multilevel spondilyosis and has been given pain medications and seems better. Patient stated she think her fistula is inftriated but function fine for dalysis, seen by vascular surgery and recommended for outpatient follow up/, Her next dialysis is tomorrow and is encouraged to go Time Attestation Discharge Coordination Time (in mins): 45 Quality: Safe Use of Opioids Does Pt have an Active Cancer Diagnosis on the Problem List?: No Quality: Stroke Does the patient have a stroke diagnosis?: No Physical Exam Vital Signs: Vital Signs: Last Vital Signs Temp 97.4 F 01/10/25 12:00 Pulse 67 01/10/25 12:00 Resp 18 01/10/25 12:00 BP 132/80 01/10/25 12:00 Pulse Ox 92 01/10/25 12:00 O2 Del Method Room Air 01/10/25 12:00 O2 Flow Rate 2 01/10/25 09:45 BMI result Body Mass Index 24.2 DS: Data Data Completed and Pending Labs on day of discharge: Laboratory Results - last 24 hr 01/10/25 01/10/25 08:51 08:52 Hold Purple Top SEE NOTE Sodium 140 Potassium 4.8 Chloride 100 Carbon Dioxide 26 Anion Gap 19 BUN 45 H Creatinine 8.06 H* Estim Creat Clear Calc 8.5 Estimated GFR 6 Random Glucose 105 Calcium 7.4 L D Phosphorus 4.7 H Discharge Plan Discharge Anticipated Discharge Date/Time: 01/10/25 12:20 Patient Disposition: Home, Self-Care Discharge Diagnosis: Hyperklamia due to missing dialysis Referrals: Kassie Reyna MD [Primary Care Provider, Internal Medicine] - 1 Week Discharge Medications: Continued carvedilol 25 mg tablet 25 mg PO BID pantoprazole 40 mg tablet,delayed release (DR/EC) 40 mg PO DAILY@0630 Lokelma 10 gram powder in packet 10 g PO DAILY sucralfate 1 gram tablet 1 g PO DAILY PRN (Reason: Stomach Upset) cholecalciferol (vitamin D3) [Vitamin D3] 50 mcg (2,000 unit) tablet 50 mcg PO DAILY oxycodone 15 mg tablet 15 mg PO Q4H PRN (Reason: pain (scale score 7-10)) Qty: 20 0RF Rx Instructions: Partial Fill upon patient request. sildenafil (pulm.hypertension) 20 mg tablet 20 mg PO BID nifedipine 30 mg tablet extended release 24hr 30 mg PO DAILY nifedipine 30 mg tablet extended release 24hr 60 mg PO BEDTIME Protocol: Hold for SBP< HOLD for SBP < : 90 levetiracetam 500 mg tablet 500 mg PO DAILY levetiracetam 250 mg tablet 250 mg PO [id number] Discharge Orders: Discharge Order (Routine); Ordered 01/10/25 Ordered By: Randell Proctor Diet: Advance to usual diet Activity on Discharge: As tolerated Stand Alone Forms: Patient Portal Discharge page Print Language: Bahraini Care Plan Goals: recovery from missing dialysis Health Concerns: hyperkalemia, kidney failure on dilaysis, complex dialysis fistula Plan of Treatment: Follow up with outpatient dialysis as before Assessment: see above
--- NOTE | 2025-01-10 14:27 | PM.CNGS ---
History of Present Illness Consult details Consult date: 01/10/25 Reason for consult: other (ESRD) Narrative: 39-year-old female presents for follow-up evaluation regarding left upper extremity fistula. She end-stage renal disease on a dialysis regimen of Friday. Her last hemodialysis session on 01/08 she reported an infiltration of the cannula. She had subsequent pain and presented to the emergency room. Of note she did have dialysis yesterday and did receive a normal full session. No significant difficulty on dialysis. Of note her fistula is being managed by Dr. Arechiga at [facility] and has had multiple left upper extremity revisions. It does appear that she had an element of steal at some point and a revision was performed. In addition it appears that it was originally placed at [facility] and subsequently revised at [place] and then once again revised in [place]. At the current time her biggest complaint is the increased swelling of the left upper extremity. She has no significant pain or discomfort in the hand. She now presents to us for routine vascular follow-up. Review of Systems Review of Systems: Yes all other systems are reviewed and are negative Constitutional: Constitutional: Reports no additional constitutional complaints ENT: Reports Normal hearing present Cardiovascular: Cardiovascular: Denies chest pain, Denies chest pain at rest, Denies chest pain with activity and Denies pedal edema Respiratory: Respiratory: Denies cough Gastrointestinal: Gastrointestinal: Denies abdominal pain Musculoskeletal: Musculoskeletal: Denies abnormal gait, Denies muscle cramps and Denies radiating pain into limb Integumentary/Breasts: Skin/Breast: Denies skin ulcer and Denies wounds Neurologic: Reports Normal hearing present and Denies abnormal gait Psychiatric: Psychiatric: Reports no additional psychiatric complaints COUNTS INCLUDE 234 BEDS AT THE [facility] Past Medical History Medical History Chronic hypoxic respiratory failure Seizure disorder ESRD (end stage renal disease) on dialysis Social History Social History Household Members: Spouse and Children Housing: House Do you presently have visiting nurse or other home services: Yes (After hospital stays) Patient Tobacco Use Status: Never used Tobacco service: No Meds Allergies Allergy/AdvReac Type Severity Reaction Status Date / Time ANNA Inhibitors Allergy Unknown Verified 01/06/25 11:28 adhesive tape Allergy Unknown Verified 01/06/25 11:28 amlodipine Allergy Unknown Verified 01/06/25 11:28 angiotensin II acetate, human Allergy Itching Verified 01/06/25 11:28 Beta-Blockers Allergy Itching Verified 01/06/25 11:28 (Beta-Adrenergic Bloc cinacalcet (From Sensipar) Allergy Unknown Verified 01/06/25 11:28 clonidine Allergy Anaphylaxis Verified 01/06/25 11:28 doxazosin Allergy Anaphylaxis Verified 01/06/25 11:28 epoetin michael-epbx (From Allergy Unknown Verified 01/06/25 11:28 Retacrit) epoetin beta Allergy Unknown Verified 01/06/25 11:28 furosemide Allergy Unknown Verified 01/06/25 11:28 gabapentin Allergy Anaphylaxis Verified 01/06/25 11:28 heparin Allergy Unknown Verified 01/06/25 11:28 hydralazine Allergy Anaphylaxis Verified 01/06/25 11:28 hydroxyzine Allergy Unknown Verified 01/06/25 11:28 ibuprofen (From Motrin) Allergy Unknown Verified 01/06/25 11:28 isosorbide Allergy Unknown Verified 01/06/25 11:28 labetalol Allergy Eye Verified 01/06/25 11:28 Swelling latex Allergy Itching Verified 01/06/25 11:28 levofloxacin Allergy Itching Verified 01/06/25 11:28 lisinopril Allergy Itching Verified 01/06/25 11:28 losartan Allergy Unknown Verified 01/06/25 11:28 methocarbamol Allergy Unknown Verified 01/06/25 11:28 metoprolol Allergy Unknown Verified 01/06/25 11:28 Penicillins Allergy Hives Verified 01/06/25 11:28 prednisone Allergy Unknown Verified 01/06/25 11:28 spironolactone Allergy Itching Verified 01/06/25 11:28 tramadol Allergy Unknown Verified 01/06/25 11:28 Active Medications: Current Medications Acetaminophen (Acetaminophen 325 Mg Tablet) 650 mg PO Q6H PRN PRN Reason: Pain, Mild 1-3,fever,headache Last Admin: 01/10/25 08:25 Dose: 650 mg Calcium Carbonate (Calcium Carbonate 750 Mg Tab.Chew) 750 mg PO Q4H PRN PRN Reason: Heartburn Carvedilol (Carvedilol 25 Mg Tablet) 25 mg PO BID MARGY; Protocol Last Admin: 01/10/25 09:47 Dose: 25 mg Duloxetine HCl (Duloxetine Hcl 30 Mg Capsule.Dr) 30 mg PO DAILY [facility] Stop: 01/15/25 08:59 Last Admin: 01/10/25 09:47 Dose: Not Given Hydromorphone HCl (Hydromorphone Hcl 1 Mg/Ml Syringe) 1 mg IVPUSH QID PRN; Protocol PRN Reason: Pain, Severe (Pain Scale 7-10) Last Admin: 01/10/25 14:18 Dose: 1 mg Levetiracetam (Levetiracetam 500 Mg Tablet) 500 mg PO DAILY [facility] Last Admin: 01/10/25 08:29 Dose: 500 mg Levetiracetam (Levetiracetam 250 Mg Tablet) 250 mg PO MoWeFr [facility] Last Admin: 01/10/25 10:01 Dose: Not Given Magnesium Hydroxide (Milk Of Magnesia 30 Ml Oral.Susp) 30 ml PO DAILY PRN PRN Reason: Constipation Melatonin (Melatonin 3 Mg Tablet) 6 mg PO BEDTIME PRN PRN Reason: Insomnia Nifedipine (Nifedipine Er 30 Mg Tab.Er.24) 60 mg PO BEDTIME [facility]; Protocol Last Admin: 01/09/25 20:56 Dose: 60 mg Nifedipine (Nifedipine Er 30 Mg Tab.Er.24) 60 mg PO DAILY [facility]; Protocol Last Admin: 01/10/25 09:47 Dose: 60 mg Omeprazole (Omeprazole 20 Mg Capsule.Dr) 20 mg PO DAILY@0630 [facility] Last Admin: 01/10/25 05:57 Dose: 20 mg Oxycodone HCl (Oxycodone Hcl Immed Release 15 Mg Tablet) 15 mg PO Q4H PRN PRN Reason: Pain, Moderate(Pain Scale 4-6) Last Admin: 01/10/25 12:28 Dose: 15 mg Sildenafil Citrate (Sildenafil Citrate 20 Mg Tablet) 20 mg PO BID [facility] Last Admin: 01/10/25 09:47 Dose: 20 mg Sodium Chloride (0.9 % Sodium Chloride Flush 3 Ml Syringe) 3 ml IVFLUSH QSHIFT [facility] Last Admin: 01/10/25 08:34 Dose: 3 ml Sucralfate (Sucralfate 1 Gm Tablet) 1 gm PO DAILY PRN PRN Reason: Stomach Upset Vitamin D (Cholecalciferol (Vitamin D3) 25 Mcg Tablet) 50 mcg PO DAILY [facility] Last Admin: 01/10/25 09:47 Dose: 50 mcg Home Medications ?Medication ?Instructions ?Recorded ?Confirmed ?Last Taken ?Type carvedilol 25 mg tablet 25 mg PO BID 12/30/24 01/06/25 01/06/25 History cholecalciferol (vitamin D3) 50 50 mcg PO DAILY 12/30/24 01/06/25 01/06/25 History mcg (2,000 unit) tablet (Vitamin D3) pantoprazole 40 mg tablet,delayed 40 mg PO DAILY@0630 12/30/24 01/06/25 01/06/25 History release sodium zirconium cyclosilicate 10 10 g PO DAILY 12/30/24 01/06/25 01/06/25 History gram oral powder packet (Lokelma) sucralfate 1 gram tablet 1 g PO DAILY PRN Stomach Upset 12/30/24 01/06/25 12/30/24 History levetiracetam 250 mg tablet 250 mg PO MOWEFR 01/06/25 01/06/25 01/05/25 History levetiracetam 500 mg tablet 500 mg PO DAILY 01/06/25 01/06/25 01/06/25 History nifedipine 30 mg tablet,extended 30 mg PO DAILY 01/06/25 01/06/25 01/06/25 History release 24 hr nifedipine 30 mg tablet,extended 60 mg PO BEDTIME 01/06/25 01/06/25 01/05/25 History release 24 hr sildenafil (pulm.hypertension) 20 20 mg PO BID 01/06/25 01/06/25 01/06/25 History mg tablet Physical Exam Vital Signs: Vital Signs: Last Vital Signs Temp 97.4 F 01/10/25 12:00 Pulse 67 01/10/25 12:00 Resp 18 01/10/25 12:00 BP 132/80 01/10/25 12:00 Pulse Ox 92 01/10/25 12:00 O2 Del Method Room Air 01/10/25 12:00 O2 Flow Rate 2 01/10/25 09:45 BMI result Body Mass Index 24.2 Const: General: cooperative, healthy appearing and comfortable Orientation/consciousness: oriented to person, oriented to place and oriented to time HEENT: Head: Yes normal to inspection Neck: Neck: Yes normal visual inspection Carotids: no bruits Chest: Chest palpation & inspection: normal inspection of the chest Resp: Effort & Inspection: normal respiratory effort and able to speak in complete sentences Auscultation: clear to auscultation bilaterally, no crackles, no rales, no rhonchi and no wheezes Cardio: Other: Left upper extremity excellent thrill and bruit. Palpable brachial radial ulnar signals Rate: regular rate Rhythm: regular rhythm Heart sounds: S1 normal heart sound present and S2 normal heart sound present Bruits: no carotid bruits Peripheral pulses: Peripheral pulses 2+ throughout GI: Inspection: Yes normal to inspection Skin: Wounds: no wounds Hair: normal Neuro: General: oriented to person, oriented to place and oriented to time Cranial nerves: Yes CN's II-XII intact bilaterally and Yes Normal hearing present Cognition (Neuro): normal cognition Motor exam (neuro): 5/5 motor strength present throughout Extrem: Other: venous exam: No significant superficial varicosities or spider telangiectasias, minimal edema General: No clubbing, No cyanosis and No edema Psych: Appearance: grossly normal Mental Status: mental status grossly normal Speech and movement: Normal speech and movement present Results Labs 01/07/25 07:07 01/10/25 08:52 Labs: Abnormal lab results 01/10/25 Range/Units 08:52 BUN 45 H (9-16) mg/dL Creatinine 8.06 H* (0.5-1.4) mg/dL Calcium 7.4 L D (8.4-10.2) mg/dL Phosphorus 4.7 H (2.7-4.5) mg/dL BMP 01/10/25 08:52 Sodium 140 Potassium 4.8 Chloride 100 Carbon Dioxide 26 BUN 45 H Creatinine 8.06 H* Calcium 7.4 L D All other labs normal. Assessment and Plan (1) ESRD (end stage renal disease) on dialysis: Status: Acute Plan At the current time patient appears to be stable. She did receive full hemodialysis through that fistula. There is some mild swelling. Did discuss the importance of warm compresses and arm elevation. In terms of the fistula. It does appear to be functioning fairly well. Should there be any issues may be better to see the original surgeon that placed this or revised this either at [facility] or most recently at [place]. She did request an ultrasound which at the current time would not prove to be any benefit. We would not do any further intervention based on an ultrasound at the fistula is functioning at the current time. She will follow up with her team [facility] and [place]. She will see us on an as-needed basis. Thank you for allowing us to assist in her care. If there are any questions or concerns please do not hesitate to contact us. Procedures Date of Service Date of Service: 01/10/25
--- NOTE | 2025-01-10 15:06 | PC.NURSE ---
pt thought that she is all set to go home after 2nd meeting w nephrology [facility] and wheeled out the room by her . As soon as this RN noted, ran to main entrance to remove IV on RAC and go over discharge paper work. pt declined to sign the discharge paperwork. please see discharge instructions and pt statement (hand written) in file regarding LA fistula infiltration .
--- NOTE | 2025-01-10 15:16 | MHC.CM.PN ---
IMM 01/10/25 Patient discharged to home today selfcare. Her community HD center, [facility]. T/W spoke with Charge nurse Thor. DC info has been faxed to the HD center. Patient arranged for transportation home from her S.O..
--- NOTE | 2025-01-14 18:43 | P.CDIM_ITS ---
PROVIDER RESPONSE TEXT: To clarify, the appropriate diagnosis supported by the clinical indicators: Diastolic: acute on chronic QUERY TEXT: PHYSICIAN'S DOCUMENTATION REQUEST Date of Query: 01/10/2025 01:06 PM EDT Patient Name: Flavio Morris Admit Date: 01/06/2025 Dear Randell Proctor MD, A review of the medical record indicates additional documentation may be needed. Please review below and update the documentation accordingly. Clinical Indicators: Progress note dated 01/09/25 - Chronic respiratory failure d/t CHF, pulmonary HTN. Continue baseline O2. BNP 8748 H ESRD - missed Dialysis Please provide further specificity regarding the most likely type and acuity of CHF you are evaluating, treating, or monitoring. Systolic Please specify if Acute, Chronic, or Acute on chronic, or Unable to determine Diastolic Please specify if Acute, Chronic, or Acute on chronic, or Unable to determine Combined Systolic/Diastolic Please specify if Acute, Chronic, or Acute on chronic, or Unable to determine After study CHF ruled out Other (explain) Clinically unable to determine (explain) Thank you, Tatyana Castanon, CCS, CDIS Use of terms such as suspected, likely, concern for, or probable (associated with a specific diagnosis that is being evaluated, monitored, or treated as if it exists) are acceptable and can be coded in the inpatient setting, when documented at the time of discharge. Please use your independent medical judgment in providing your response. THIS QUERY IS PART OF THE PERMANENT MEDICAL RECORD
== END 2025-01-10 15:17 | disposition home or self-care (01) | DRG 640 ==
LOC: HO.ED 15:28 → HO.EDOVER 15:30 → HO.IMC 18:53
PROVIDERS: Nurse Practitioner Family; Physician Assistant Medical; Registered Nurse Emergency; Absent Provider Physician Assistant Medical; Admitting Provider Physician Assistant Medical; Emergency Provider Emergency Medicine; PCP Internal Medicine; Visit Provider Internal Medicine
DX: E87.5 Hyperkalemia (principal); I50.33 Acute on chronic diastolic (congestive) heart failure; N18.6 End stage renal disease; I13.2 Hypertensive heart and chronic kidney disease with heart failure and with stage 5 chronic kidney disease, or end stage renal disease; J96.10 Chronic respiratory failure, unspecified whether with hypoxia or hypercapnia; I27.20 Pulmonary hypertension, unspecified; M54.9 Dorsalgia, unspecified; G89.29 Other chronic pain; D63.1 Anemia in chronic kidney disease; G40.909 Epilepsy, unspecified, not intractable, without status epilepticus; M47.816 Spondylosis without myelopathy or radiculopathy, lumbar region; Z91.158 Patient's noncompliance with renal dialysis for other reason; Z99.2 Dependence on renal dialysis; Z99.81 Dependence on supplemental oxygen; Z79.899 Other long term (current) drug therapy
CPT/HCPCS: 36415; 71046; 72100; 80048; 80053; 83735; 83880; 84100; 84484; 84702; 85025; 85027; 85610; 87637; 90999; 93005; 99285; J1171; J1200

== ENCOUNTER → 2025-01-06 11:24 | Outpatient (BNV) | payer MEDICARE, MEDICAID, SELFPAY | PROVIDERS: Absent Provider Physician Assistant Medical; Admitting Provider Physician Assistant Medical; Emergency Provider Emergency Medicine; PCP Internal Medicine; Visit Provider Internal Medicine | DX: R94.31 Abnormal electrocardiogram [ECG] [EKG] (principal); Z13.6 Encounter for screening for cardiovascular disorders | CPT/HCPCS: 93010 ==

== ENCOUNTER → 2025-01-06 11:24 | Outpatient (BNV) | payer MEDICARE, MEDICAID, SELFPAY | PROVIDERS: Absent Provider Physician Assistant Medical; Admitting Provider Physician Assistant Medical; Emergency Provider Emergency Medicine; PCP Internal Medicine; Visit Provider Radiology Diagnostic Radiology | DX: M54.50 Low back pain, unspecified (principal); I51.7 Cardiomegaly | CPT/HCPCS: 71046 ==

== ENCOUNTER → 2025-01-06 15:21 | Outpatient (BNV) | payer MEDICARE, MEDICAID, SELFPAY | PROVIDERS: Absent Provider Physician Assistant Medical; Admitting Provider Physician Assistant Medical; Emergency Provider Emergency Medicine; PCP Internal Medicine; Visit Provider Nurse Practitioner Family | DX: N18.6 End stage renal disease (principal); Z99.2 Dependence on renal dialysis; E87.5 Hyperkalemia | CPT/HCPCS: 99222 ==

== ENCOUNTER → 2025-01-06 15:21 | Outpatient (BNV) | payer MEDICARE, MEDICAID, SELFPAY | PROVIDERS: Absent Provider Physician Assistant Medical; Admitting Provider Physician Assistant Medical; Emergency Provider Emergency Medicine; PCP Internal Medicine; Visit Provider Surgery Vascular Surgery | DX: N18.6 End stage renal disease (principal); Z99.2 Dependence on renal dialysis | CPT/HCPCS: 99222 ==

== ENCOUNTER → 2025-01-06 15:21 | Outpatient (BNV) | payer MEDICARE, MEDICAID, SELFPAY | PROVIDERS: Absent Provider Physician Assistant Medical; Admitting Provider Physician Assistant Medical; Emergency Provider Emergency Medicine; PCP Internal Medicine; Visit Provider Physician Assistant Medical | DX: N18.6 End stage renal disease (principal); Z99.2 Dependence on renal dialysis; E87.5 Hyperkalemia | CPT/HCPCS: 99223 ==

== ENCOUNTER 2025-02-07 20:25 | Inpatient (IN) | payer MEDICARE, MEDICAID, SELFPAY ==
--- OUTSIDE RECORDS SUMMARY | 2024-01-17 05:00 | XMS_ITS ---
Author Organization [facility] Address [address] [place] [address] [phone] Care Team Providers Care Research Professional Name Role Phone Migration, Provider Unavailable Unavailable REASON FOR VISIT EMR-[facility] [place] Encounters Encounter Location Date Provider Diagnosis [facility] [address] [place] [address] [phone] 01/17/2024 Provider Migration Plan Of Treatment No Information Progress Notes * DAVI OROZCOHARRISONDOB: [birth year] (39 yo F)Acc No.[id number]:01/17/2024 Patient: HIMA CORTEZ :1985 A ge:38 Y S ex:Female Address:[address] [place] [address], [address] Subjective: * Chief Complaints: * E MR-Stone * Medical History: * Surgical History: * Hospitalization/Major Diagno stic Procedure: * Medications: Objective: * Vitals: * Physical Examination: Assessment: Plan: * Treatment: * Procedure Codes: * * Date:
--- OUTSIDE RECORDS SUMMARY | 2024-01-18 05:00 | XMS_ITS ---
Author Organization [facility] Address [address] [place] [address] [phone] Care Team Providers Care Senior C Developer Name Role Phone Migration, Provider Unavailable Unavailable REASON FOR VISIT EMR-[facility] [place] Encounters Encounter Location Date Provider Diagnosis [facility] [address] [place] [address] [phone] 01/18/2024 Provider Migration Plan Of Treatment No Information Progress Notes * DAVI OROZCOHARRISONDOB: [birth year] (39 yo F)Acc No.[id number]:01/18/2024 Patient: HIMA CORTEZ :1985 A ge:38 Y S ex:Female Address:[address] [place] [address], [address] Subjective: * Chief Complaints: * E MR-Stone * Medical History: * Surgical History: * Hospitalization/Major Diagno stic Procedure: * Medications: Objective: * Vitals: * Physical Examination: Assessment: Plan: * Treatment: * Procedure Codes: * * Date:
--- NOTE | 2025-02-07 | ECG_ITS ---
Test Reason : CHEST PAIN Blood Pressure : */* mmHG Vent. Rate : 66 BPM Atrial Rate : 66 BPM P-R Int : 200 ms QRS Dur : 74 ms QT Int : 462 ms P-R-T Axes : 22 4 134 degrees QTcB Int : 484 ms Normal sinus rhythm Septal infarct , age undetermined ST & T wave abnormality, consider lateral ischemia Abnormal ECG When compared with ECG of 06-Jan-2025 12:01, No significant change was found Referred By: Generic ED Physician Electronically Signed By: ROXANA RENTERIA MD
--- NOTE | ~2025-02-07 | CT_ITS ---
CLINICAL HISTORY: abd pain CT abdomen and pelvis without contrast Comparison: None provided Findings: Ground-glass opacity in the central lung bases. Marked cardiomegaly. Hepatosplenomegaly. Marked atrophy of both kidneys. No renal collecting system dilatation. Adrenal glands, gallbladder and pancreas are unremarkable. No bowel obstruction, pneumoperitoneum, or pneumatosis. Pelvic contents unremarkable. Normal appendix. Small volume ascites in the pelvis. Osseous structures are unremarkable. IMPRESSION: 1. Hepatosplenomegaly. 2. Small volume ascites. 3. Cardiomegaly. Diffuse ground-glass lung opacities suggesting pulmonary edema. This document has been electronically signed by: Rogerio Esteban MD on 02/08/2025 02:57:42
--- NOTE | ~2025-02-07 | XR_ITS ---
CLINICAL HISTORY: cp 1 view chest x-ray Comparison: CR/SR - XR CHEST 2 VIEWS - 01/06/25 15:04 EDT Findings: New opacity in the right lower lobe. No effusion or pneumothorax. Marked cardiomegaly. Unchanged from prior. No acute fracture. IMPRESSION: New opacity in the right lower lobe concerning for infection or aspiration. This document has been electronically signed by: Rogerio Esteban MD on 02/08/2025 02:44:30
--- NOTE | ~2025-02-07 | XR_ITS ---
CLINICAL HISTORY: eval for FB 2 view right humerus Comparison: None provided Findings: No fractures or dislocations. No significant arthritic change. No radiopaque foreign body. IMPRESSION: 1. Normal right humerus This document has been electronically signed by: Rogerio Esteban MD on 02/08/2025 02:44:12
--- NOTE | ~2025-02-07 | US_ITS ---
EXAMINATION: US TRIPLEX UPPER EXTREMITY, RIGHT CLINICAL INFORMATION: Right lower swelling, superficial vein thrombosis COMPARISON: None available. TECHNIQUE: Color-flow triplex imaging with spectral analysis and compression Doppler was performed on the right upper extremity. FINDINGS: The right internal jugular, subclavian, and axillary veins are patent and free of thrombus. The imaged segment of the right brachiocephalic vein is patent. Spectral doppler waveforms are normal. The brachial, cephalic, radial, and ulnar veins are patent and compressible. The proximal basilic vein is obscured by bandages. The distal basilic vein contains low level echogenicity, no blood flow, and is noncompressible. US/US venous duplex UE RT IMPRESSION: Superficial venous thrombosis is noted in the basilic vein with occlusion of flow. No evidence of deep venous thrombosis involving the right upper extremity. Electronically signed by: Jonatan Paz MD 02/09/2025 02:09 PM EDT
[2025-02-07 20:50] VITALS: BP 128/64; PULSE 102; RESP 16; TEMP 36.7; O2SAT 99; BMI 23.5
[2025-02-07 21:05] LABS: MANUAL DIFF FLAG NO
[2025-02-07 21:07] LABS: Hematocrit 24.0 % (37.0-47.0); Hemoglobin 7.7 g/dl (12.0-16.0); Imm Gran Abs Auto 0.03 X10*3/uL (0.00-0.03); Imm Gran Pct Auto 0.5 % (0.0-0.4); Lymphocytes Absolute Auto 0.5 X10*3/uL (1.2-4.9); Mean Corpuscular HGB Conc 32.1 g/dl (31.0-35.0); Mean Corpuscular Hemoglobin 30.6 pg (27.0-33.0); Mean Corpuscular Volume 95.2 fL (80.0-98.0); NRBC Abs Auto 0.000 X10*3/uL (0.0-0.012); NRBC Pct Auto 0.0 /100WBC (0.0-0.2); Platelet Count 115 X10*3/uL (160-400); Red Blood Count 2.52 X10*6/uL (4.20-5.50); White Blood Count 5.9 X10*3/uL (4.8-10.8)
--- NOTE | 2025-02-07 21:10 | ED.CHESTPAIN ---
HPI - Chest Pain General Chief Complaint: Chest Pain Stated Complaint: CP; bodyaches, dizziness (Missed Dialysis) Time Seen by Provider: 02/07/25 22:23 Source: patient Mode of arrival: ambulatory Limitations: no limitations History of Present Illness ED Provider: Dr. Jennifer Johnson HPI narrative: 39-year-old female with a history of ESRD on dialysis Friday, hypertension, seizure disorder presenting with all over body pain, chest pain ongoing for several months now. Reports that she had her fistula revised twice in October and November of this year and since that time has been dealing with worsening body aches and pain. Feels that her pain is not well controlled. She takes 15 mg of oxycodone for pain every 6 hours without real relief of her pain. Denies associated fever. Admits to a cough that is dry. No reported shortness of breath though she admits if she is not taking her dialysis regularly, she will become more short of breath. Last dialysis treatment was last week. She missed Friday because ?I just could not deal with the pain?. Related Data Home Medications ?Medication ?Instructions ?Recorded ?Confirmed carvedilol 25 mg tablet 25 mg PO BID 12/30/24 02/08/25 cholecalciferol (vitamin D3) 50 50 mcg PO DAILY 12/30/24 02/08/25 mcg (2,000 unit) tablet (Vitamin D3) pantoprazole 40 mg tablet,delayed 40 mg PO DAILY@0630 12/30/24 02/08/25 release levetiracetam 250 mg tablet 250 mg PO TUTHSA 01/06/25 02/08/25 levetiracetam 500 mg tablet 500 mg PO DAILY 01/06/25 02/08/25 nifedipine 30 mg tablet,extended 30 mg PO DAILY 01/06/25 02/08/25 release 24 hr sildenafil (pulm.hypertension) 20 20 mg PO TID 01/06/25 02/08/25 mg tablet albuterol sulfate 90 mcg/actuation 2 puff inhalation Q6H PRN 02/08/25 02/08/25 aerosol inhaler Shortness Of Breath Or Wheezing cephalexin 250 mg capsule 250 mg PO DAILY 02/08/25 02/08/25 nifedipine 60 mg tablet,extended 60 mg PO BEDTIME 02/08/25 02/08/25 release 24 hr Allergies Allergy/AdvReac Type Severity Reaction Status Date / Time ANNA Inhibitors Allergy Unknown Verified 02/07/25 20:54 adhesive tape Allergy Unknown Verified 02/07/25 20:54 amlodipine Allergy Unknown Verified 02/07/25 20:54 angiotensin II acetate, human Allergy Itching Verified 02/07/25 20:54 Beta-Blockers Allergy Itching Verified 02/07/25 20:54 (Beta-Adrenergic Bloc cinacalcet (From Sensipar) Allergy Unknown Verified 02/07/25 20:54 clonidine Allergy Anaphylaxis Verified 02/07/25 20:54 doxazosin Allergy Anaphylaxis Verified 02/07/25 20:54 epoetin michael-epbx (From Allergy Unknown Verified 02/07/25 20:54 Retacrit) epoetin beta Allergy Unknown Verified 02/07/25 20:54 furosemide Allergy Unknown Verified 01/06/25 11:28 gabapentin Allergy Anaphylaxis Verified 01/06/25 11:28 heparin Allergy Unknown Verified 01/06/25 11:28 hydralazine Allergy Anaphylaxis Verified 01/06/25 11:28 hydroxyzine Allergy Unknown Verified 01/06/25 11:28 ibuprofen (From Motrin) Allergy Unknown Verified 01/06/25 11:28 isosorbide Allergy Unknown Verified 01/06/25 11:28 labetalol Allergy Eye Verified 01/06/25 11:28 Swelling latex Allergy Itching Verified 01/06/25 11:28 levofloxacin Allergy Itching Verified 01/06/25 11:28 lisinopril Allergy Itching Verified 01/06/25 11:28 losartan Allergy Unknown Verified 01/06/25 11:28 methocarbamol Allergy Unknown Verified 01/06/25 11:28 metoprolol Allergy Unknown Verified 01/06/25 11:28 Penicillins Allergy Hives Verified 01/06/25 11:28 prednisone Allergy Unknown Verified 01/06/25 11:28 spironolactone Allergy Itching Verified 01/06/25 11:28 tramadol Allergy Unknown Verified 01/06/25 11:28 Review of Systems Review of Systems: as per HPI, full review of systems performed and negative but for the above mentioned pertinent positives and negatives. [facility] Past Medical History Medical History Chronic hypoxic respiratory failure Seizure disorder ESRD (end stage renal disease) on dialysis Social History Social History Household Members: Family and Children Housing: House Do you presently have visiting nurse or other home services: No Patient Tobacco Use Status: Never used Tobacco Smoked in Last 30 Days: No Use of substances other than those prescribed or required for medical reasons: No Have you been hit, kicked, punched, or otherwise hurt by someone within the past year? If so, by whom?: No Do you feel safe in your current relationship?: Yes Is there a partner from a previous relationship who is making you feel unsafe now?: No Are you made to feel afraid or neglected: No Advance Directives: No Advance Directives Information Provided: Yes Do you have a plan to hurt others: No Plan Recently lost weight without trying: No Eating poorly because of decreased appetite: No Nutrition Risks: No Nutritional Risk Patient : No : No Poor oral hygiene: No service: No Physical Exam Exam: Exam: GENERAL: Ill-Appearing, appears uncomfortable. SKIN: Normal skin color for ethnicity, warm, dry, no rashes noted. HEENT:? Normocephalic, atraumatic, no stridor, dry mucous membranes, dentition intact, EOMI. NECK: Soft, supple, full ROM, midline structures nontender, no step-offs, no deformities, no lymphadenopathy. CHEST: Heart regular rhythm, no murmurs, symmetric chest rise and fall. PULMONARY: Clear to auscultation bilaterally, diminished at the bases, no labored breathing, no wheezes/rhales/rhonchi. ABDOMINAL: Soft, nondistended, nontender, positive bowel sounds in all quadrants. : Deferred. MUSCULOSKELETAL: Normal tone, full range of motion, no deformities, no peripheral edema, left upper biceps fistula with palpable thrill, forearm fistula without thrill, tenderness to palpation overlying the entire medial biceps area, no evidence of cellulitic changes overlying the skin, neurovascularly intact distally. NEURO: Alert and oriented x3, CN II through XII intact, equal strength and sensation bilateral upper and lower extremities, no focal neurologic deficits.? PSYCHIATRIC: Flat affect, fluid speech, good eye contact and appropriate demeanor. Vital Signs: Vital Signs: Last Vital Signs Temp 98.0 F 02/08/25 19:10 Pulse 79 02/08/25 19:10 Resp 19 02/08/25 19:10 BP 147/66 H 02/08/25 19:10 Pulse Ox 91 L 02/08/25 19:10 O2 Del Method Room Air 02/08/25 19:10 O2 Flow Rate 1 02/08/25 15:33 BMI result Body Mass Index 23.5 Course Course Course Narrative: RME, this is a rapid medical exam performed by Messi Weathers please refer to primary provider for complete H&P- 39 year old female with history of end-stage in his on dialysis presents for evaluation of chest pain. She reports missing dialysis. Plan for labs and EKG Medications Administered Generic Name Dose Route Start Last Admin Trade Name Freq PRN Reason Stop Dose Admin Carvedilol 25 mg 02/08/25 21:00 02/08/25 16:35 Carvedilol 25 Mg Tablet PO Not Given BID MARGY Protocol Heparin Sodium (Porcine) 5,000 unit 02/08/25 06:00 02/08/25 20:52 Heparin Sodium,Porcine 5,000 Unit/Ml Vial SUBCUT Not Given Q8H MARGY Hydromorphone HCl 0.5 mg 02/08/25 00:52 02/08/25 20:01 Hydromorphone Hcl 0.5 Mg/0.5 Ml Syringe IVPUSH 0.5 mg Q4H PRN Administration Pain, Severe (Pain Scale 7-10) Protocol Levetiracetam 500 mg 02/08/25 09:00 02/08/25 09:18 Levetiracetam 500 Mg Tablet PO 500 mg DAILY MARGY Administration Nifedipine 30 mg 02/08/25 09:00 02/08/25 09:19 Nifedipine Er 30 Mg Tab.Er.24 PO 30 mg DAILY MARGY Administration Protocol Oxycodone HCl 15 mg 02/08/25 00:52 02/08/25 21:53 Oxycodone Hcl Immed Release 15 Mg Tablet PO 15 mg Q4H PRN Administration Breakthrough Pain Sodium Chloride 3 ml 02/08/25 08:00 02/08/25 16:00 0.9 % Sodium Chloride Flush 3 Ml Syringe IVFLUSH 3 ml QSHIFT MARGY Administration Discontinued Medications Generic Name Dose Route Start Last Admin Trade Name Freq PRN Reason Stop Dose Admin Albuterol Sulfate 7.5 mg/ 10 mg 02/07/25 22:30 02/07/25 22:50 Albuterol Sulfate 2.5 mg INHALE 02/07/25 22:31 10 mg ONCE ONE Administration Carvedilol 6.25 mg 02/08/25 09:00 02/08/25 15:57 Carvedilol 6.25 Mg Tablet PO 6.25 mg BID MARGY Administration Protocol Dextrose 25 gm 02/07/25 22:30 02/08/25 01:38 Dextrose 50 % 25 Gm/50 Ml Syringe IVPUSH 02/07/25 22:31 25 gm ONCE ONE Administration Dextrose 25 gm 02/08/25 05:17 02/08/25 05:25 Dextrose 50 % 25 Gm/50 Ml Syringe IVPUSH 02/08/25 05:18 25 gm ONCE ONE Administration Diphenhydramine HCl 50 mg 02/08/25 00:07 02/08/25 01:31 Diphenhydramine Hcl 50 Mg/Ml Vial IVPUSH 02/08/25 00:08 50 mg ONCE ONE Administration Diphenhydramine HCl 25 mg 02/08/25 16:52 02/08/25 17:06 Diphenhydramine Hcl 50 Mg/Ml Vial IVPUSH 02/08/25 16:53 25 mg ONCE ONE Administration Haloperidol Lactate 2.5 mg 02/08/25 00:07 02/08/25 01:31 Haloperidol Lactate 5 Mg/Ml Vial IVPUSH 02/08/25 00:08 2.5 mg ONCE ONE Administration Hydromorphone HCl 1 mg 02/08/25 00:07 02/08/25 01:07 Hydromorphone Hcl 1 Mg/Ml Syringe IVPUSH 02/08/25 00:08 Not Given ONCE ONE Protocol Hydromorphone HCl 1 mg 02/08/25 01:01 02/08/25 01:31 Hydromorphone Hcl 1 Mg/Ml Syringe IVPUSH 02/08/25 01:02 1 mg ONCE ONE Administration Protocol Hydromorphone HCl 0.5 mg 02/08/25 23:36 02/08/25 23:52 Hydromorphone Hcl 0.5 Mg/0.5 Ml Syringe IVPUSH 02/08/25 23:37 0.5 mg ONCE ONE Administration Protocol Insulin Human Regular 10 unit 02/07/25 22:30 02/08/25 01:39 Insulin Regular, Human 100 Unit/Ml 10 Ml Vial IVPUSH 02/07/25 22:31 10 unit ONCE ONE Administration Oxycodone HCl 15 mg 02/07/25 23:08 02/07/25 23:23 Oxycodone Hcl Immed Release 15 Mg Tablet PO 02/07/25 23:09 15 mg ONCE ONE Administration Sodium Bicarbonate 50 meq 02/07/25 22:30 02/08/25 01:39 Sodium Bicarbonate 8.4% 50 Meq/50 Ml Syringe IVPUSH 02/07/25 22:31 50 meq ONCE ONE Administration Sodium Zirconium Cyclosilicate 5 gm 02/07/25 22:30 02/07/25 23:24 Sodium Zirconium Cyclosilicate 5 Gm Powd.Pack PO 02/07/25 22:31 5 gm ONCE ONE Administration Procedures Procedure Narrative Procedure Narrative: Ultrasound-guided IV 20 gauge 1-3/4 inch IV placed in right upper extremity. Adequate blood return, flushes well secured with Tegaderm performed by Aaliyah Corona PA-C The patient kept moving her arm, I had to remove the line it was bent, having to place another ultrasound-guided IV 20 gauge 1-3/4 inch IV placed in right upper extremity. Adequate blood return flushes well secured with Tegaderm performed by Aaliyah Corona PA-C Medical Decision Making Medical Decision Making MDM Narrative: Patient presents today with a chief complaint of chest pain. Differential diagnosis includes, but is not limited to, acute coronary syndrome, musculoskeletal pain, pneumothorax, GERD, pleurisy, pulmonary embolism, dissection, among others. I will order EKG, chest x-ray, laboratory workup including cardiac enzymes to further evaluate for etiology. 10:25 PM 02/07/2025 (Dr. Jennifer Johnson, D.O.) patient noted to be significantly hyperkalemic with a potassium of 6.3. EKG is nonischemic but does have nonspecific T-wave changes. Creatinine of 13.18 is close to the highest I have seen in our system. Last dialysis was last week. She is due for dialysis at this point. We will initiate hyperkalemia treatment including insulin, glucose, albuterol, bicarbonate and Lokelma. Blood pressures are elevated but she is in significant pain. We will treat with her home dose of oxycodone. Plan for admission for dialysis and further care. Differential Diagnosis Differential Diagnoses: The differential diagnosis associated with the presentation includes (As above) Admission/Observation Consideration of admission/observation: Escalation of care including admission/observation considered Consult Healthcare Provider Management of the patient was discussed with: Hospitalist Lab Data MDM Lab Attestation statement: I reviewed the patient's lab results. 02/08/25 03:45 02/08/25 03:45 Labs: Lab Results 02/07/25 02/07/25 Range/Units 21:00 23:52 WBC 5.9 (4.8-10.8) X10*3/uL RBC 2.52 L (4.20-5.50) X10*6/uL Hgb 7.7 L (12.0-16.0) g/dl Hct 24.0 L (37.0-47.0) % MCV 95.2 (80.0-98.0) fL MCH 30.6 (27.0-33.0) pg MCHC 32.1 (31.0-35.0) g/dl RDW 15.0 (11.0-16.0) % Plt Count 115 L (160-400) X10*3/uL MPV 10.2 (9.4-12.3) fL Immature Gran % (Auto) 0.5 H (0.0-0.4) % Neut % (Auto) 81.4 H (45-73) % Lymph % (Auto) 8.2 L (20-40) % [place] % (Auto) 5.6 (2-11) % Eos % (Auto) 3.6 (0-4) % Baso % (Auto) 0.7 (0-2) % Lymph # (Auto) 0.5 L (1.2-4.9) X10*3/uL [place] # (Auto) 0.3 (0.1-1.2) X10*3/uL Eos # (Auto) 0.2 (0.0-0.4) X10*3/uL Baso # (Auto) 0.0 (0.0-0.2) X10*3/uL Abs Immat Gran (auto) 0.03 (0.00-0.03) X10*3/uL Absolute Neuts (auto) 4.8 (2.0-8.3) x10*3/uL Absolute Nucleated RBC 0.000 (0.0-0.012) X10*3/uL Nucleated RBC % (auto) 0.0 (0.0-0.2) /100WBC Sodium 142 (135-145) mmol/L Potassium 6.3 H* D (3.3-5.1) mmol/L Chloride 107 (96-108) mmol/L Carbon Dioxide 14 L (22-29) mmol/L Anion Gap 27 H (12-20) BUN 109 H (9-16) mg/dL Creatinine 13.18 H* (0.5-1.4) mg/dL Estim Creat Clear Calc 5.2 Estimated GFR 3 Random Glucose 141 H (60-115) mg/dL Calcium 7.2 L (8.4-10.2) mg/dL Total Bilirubin 0.6 (0.0-1.0) mg/dL AST 21 (5-31) U/L ALT 22 (0-31) U/L Alkaline Phosphatase 107 (39-117) U/L Total Creatine Kinase 103 (26-140) U/L Troponin I High Sens 24.2 H 25.9 H (<3.5-17.0) ng/L Total Protein 7.4 (6.5-8.0) g/dL Albumin 4.0 (3.5-5.0) g/dL COVID-19 (SHI) Negative (Negative) COVID-19 Clin Com See Note Influenza Type A (CHRISTIE) Negative (Negative) Influenza Type B (CHRISTIE) Negative (Negative) Influenza A & B Note See Note Independent Interpretation I performed an independent interpretation of an: EKG Interpretation: My independent interpretation of the ECG reveals normal sinus rhythm with rate of 74, normal axis, normal intervals, no ST elevations or depressions to suggest ischemic changes, relatively unchanged from previous on 01/06/2025. Radiology Impression Discussion of test interpretation with radiology: I have reviewed the radiologist's reading. Prescription Management I considered prescription management with: Pain Medication Chronic Conditions Patient?s care impacted by: Hypertension and Other (ESRD on dialysis) Critical Care Time Critical Care Time Critical Care Time: Yes Total Critical Care Time: 40 Attestation: CRITICAL CARE TIME: 40 minutes of critical care time was spent in direct patient care at the bedside or in the immediate area with this patient. Critical care was necessary to treat or prevent imminent or life-threatening deterioration of the following conditions hyperkalemia due to ESRD, miss dialysis. This patient is high risk for decompensation and/or . This time was spent assessing and managing the patient, interpreting labs and imaging, coordinating care with other medical providers, gathering history from either the patient, their representatives, EMS or chart review, and discussing management with admitting team. Discharge Plan Discharge Clinical Impression: ESRD (end stage renal disease) on dialysis, Chest pain, Hyperkalemia Patient Disposition: Admitted As Inpatient Interventions: Admission Worksheet (ED) Last Done: 02/08/25 11:46 Discharge Date/Time: 02/08/25 11:46
[2025-02-07 21:26] LABS: Troponin-I High Sensitivity 24.2 ng/L (<3.5-17.0)
[2025-02-07 21:39] LABS: Alanine Aminotransferase 22 U/L (0-31); Albumin Level 4.0 g/dL (3.5-5.0); Alkaline Phosphatase 107 U/L (39-117); Anion Gap 27 (12-20); Aspartate Amino Transferase 21 U/L (5-31); Blood Urea Nitrogen 109 mg/dL (9-16); Calcium 7.2 mg/dL (8.4-10.2); Carbon Dioxide 14 mmol/L (22-29); Chloride 107 mmol/L (96-108); Creatinine Clr Calc Pharmacy 5.2; Estimated Glomerular Filt Rate 3; Potassium 6.3 mmol/L (3.3-5.1); Sodium 142 mmol/L (135-145); Total Protein 7.4 g/dL (6.5-8.0)
[2025-02-07 22:29] VITALS: BP 169/92; PULSE 74; RESP 16; O2SAT 98
--- OUTSIDE RECORDS SUMMARY | 2025-02-07 22:44 | XMS_ITS | Encounter Summary ---
Author Organization [facility] Address [address] [place] [address] Phone Care Team Providers Care Geneticist Name Role Phone Kassie Reyna MD Primary Care Provider + Encounter Details Date Type Department Care Team (Late st Contact Info) Description 11/16/[address] [facility] [address], [address] [facility], 2nd Floor, [address] [place] [address] Social History Tobacco Use Types Packs/Day Years [...] your housing situation today? I have rocio gonzalez 11/01/2024 How many times have you move [...] Description 03/22/2025 3:00 PM EDT Office Visit [facility] [place] [facility] [address] [place] [address], 2nd Floor, [address] [place] [address] Zuleika Adams MD [address] [place] [address] [address] [place] [address] [email or web address] documented as of this encounter Goals Goal Patient Goal Type Associated Problems Recent Progress Patient-Stated? Author Safety Care Plan Acute Care Plan Italia Foster, RN Note: Safety Care Plan Objectives Provide [...] cell phone pictures and video calls like [employer]. If patient is found to be recording [...] Care Plan Endorsed or authored by: Italia Sheikh, SONIA, ANP-BC, CWS documented as of this encounter Visit Diagnoses Not on filedocumented in this encounter Care Teams Geneticist Relationship Specialty Start Date End Date Kassie Reyna MD [address] [place] [id number] PCP - General Internal Medicine 12/17/21 documented as of this encounter Additional Source Comments The information contained in this document represents components of the legal health record. It is not the complete legal health record.[facility]
--- OUTSIDE RECORDS SUMMARY | 2025-02-07 22:44 | XMS_ITS | Encounter Summary ---
Author Organization [facility] Address [address] [place] [address] Care Team Providers Care Solar Sales Associate Name Role Phone Kassie Reyna MD Primary Care Provider [phone]- [phone] Encounter Details Date Type Department Care Team (Late st Contact Info) Description 11/07/2023 Abstract [facility] [address] [facility] [address] [facility] 4th [place] [address] Taylor De León, MIKE Social History Tobacco [...] documented as of this encounter Care Teams Solar Sales Associate Relationship Specialty Start Date End Date Kassie Reyna MD [address] [facility] 1 [place] [address] PCP - General Internal Medicine 07/29/22 documented as of this encounter
--- OUTSIDE RECORDS SUMMARY | 2025-02-07 22:44 | XMS_ITS | Encounter Summary ---
Author Organization [facility] Address [address] [place] [address] Care Team Providers Care Harvesting Contractor Name Role Phone Kassie Reyna MD Primary Care Provider [phone]- [phone] Dialysis, [facility] Unavailable [phone] Lana Quintana MD Unavailable Gómez Whitley MD Unavailable Encounter Details Date Type Department Care Team (Late st Contact Info) Description 06/25/2023 Mobile [facility] Physicians Department of Nephrology [address] [id number] Lana Quintana MD [address] [place] [id number] Vitamin D deficiency (Primary Dx) Social History [...] Primary documented in this encounter Care Teams Harvesting Contractor Relationship Specialty Start Date End Date Kassie Reyna MD [address] [place] [address] PCP - General Internal Medicine 12/24/21 Dialysis, [facility] [address] [place] [address] Dialysis Unit 09/05/22 Lana Quintana MD [address] [place] [address] Physician Nephrology 09/11/22 Gómez Whitley MD [address] [place] [address] Surgery, General 10/25/22 documented as of this encounter
--- OUTSIDE RECORDS SUMMARY | 2025-02-07 22:44 | XMS_ITS | Encounter Summary ---
Author Organization [facility] Address [address] [place] [address] Phone Care Team Providers Care Wrecking Mechanic Name Role Phone Kassie Reyna MD Primary Care Provider + Encounter Details Date Type Department Care Team (Late st Contact Info) Description 11/16/[address], [address] [facility], 2nd Floor, [address] [place] [address] Social History Tobacco Use Types Packs/Day Years [...] Description 03/22/2025 3:00 PM EDT [place] [facility] [address] [place] [address], 2nd Floor, [address] [place] [address] Zuleika Adams MD [address] [place] [address] [address] [place] [address] [email or web address] documented as of this encounter Goals Goal [...] cell phone pictures and video calls like [employer]. If patient is found to be recording [...] on filedocumented in this encounter Care Teams Wrecking Mechanic Relationship Specialty Start Date End Date Kassie Reyna MD [address] [place] [address] PCP - General Internal Medicine 12/17/21 documented as of this encounter Additional Source Comments The information contained in this document represents components of the legal health record. It is not the complete legal health record.[facility]
--- OUTSIDE RECORDS SUMMARY | 2025-02-07 22:44 | XMS_ITS | Encounter Summary ---
Author Organization [facility] Address [address] [place] [address] Phone Care Team Providers Care Nuclear Plant Technical Advisor Name Role Phone Kassie Reyna MD Primary Care Provider + Encounter Details Date Type Department Care Team (Late st Contact Info) Description 11/19/2024 Procedure Pass [facility] [address] [place] [address] Social History Tobacco Use Types Packs/Day Years [...] tries to control you? No 11/01/2024 Comments No Sex and Gender Information Value [...] Description 03/22/2025 3:00 PM EDT Office [place] [facility] [address] [place] [address], 2nd Floor, [address] [place] [address] Zuleika Adams MD [address] [place] [address] [address] [place] [address] [email or web address] documented as of this encounter Goals [...] cell phone pictures and video calls like [employer]. If patient is found to be recording [...] on filedocumented in this encounter Care Teams Nuclear Plant Technical Advisor Relationship Specialty Start Date End Date Kassie Reyna MD [address] [place] [address] PCP - General Internal Medicine 12/17/21 documented as of this encounter Additional Source Comments The information contained in this document represents components of the legal health record. It is not the complete legal health record.[facility]
--- OUTSIDE RECORDS SUMMARY | 2025-02-07 22:44 | XMS_ITS | Encounter Summary ---
Author Organization [facility] Address [address] [place] [address] Care Team Providers Care Mail Distribution Scheme Examiner Name Role Phone Kassie Reyna MD Primary Care Provider [phone]- [phone] Encounter Details Date Type Department Care Team (Late st Contact Info) Description 08/18/2023 Abstract [facility] [address] [facility] [address] [facility] [address] [place] [address] Taylor De León, MIKE Social History Tobacco [...] documented as of this encounter Care Teams Mail Distribution Scheme Examiner Relationship Specialty Start Date End Date Kassie Reyna MD [address] [facility] 1 [place] [address] PCP - General Internal Medicine 07/29/22 documented as of this encounter
--- OUTSIDE RECORDS SUMMARY | 2025-02-07 22:44 | XMS_ITS | Encounter Summary ---
Author Organization [facility] Address [address] [place] [address] Phone Care Team Providers Care Commercial Green Building Architect Name Role Phone Kassie Reyna MD Primary Care Provider + Encounter Details Date Type Department Care Team (Late st Contact Info) Description 11/15/2024 Procedure Pass [facility] [place] Licensed Practical Vocational Nurse [address] [facility], Floor 9, [address] [place] [address] Social History Tobacco Use Types [...] 03/22/2025 3:00 PM EDT Office [place] [facility] [place] [address] [place] [address], 2nd Floor, [address] [place] [address] Zuleika Adams MD [address] [place] [address] [address] [place] [address] [email or web address] documented as of this encounter Goals Goal [...] cell phone pictures and video calls like [employer]. If patient is found to be recording [...] Plan Endorsed or authored by: Italia Sheikh, DNP, ANP-BC, CWS documented as of this encounter Visit Diagnoses Not on filedocumented in this encounter Care Teams Commercial Green Building Architect Relationship Specialty Start Date End Date Kassie Reyna MD [address] [place] [address] PCP - General Internal Medicine 12/17/21 documented as of this encounter Additional Source Comments The information contained in this document represents components of the legal health record. It is not the complete legal health record.[facility]
--- OUTSIDE RECORDS SUMMARY | 2025-02-07 22:44 | XMS_ITS | Encounter Summary ---
Author Organization [facility] Address [address] [place] [address] Care Team Providers Care Safety Investigator Name Role Phone Kassie Reyna MD Primary Care Provider [phone] Encounter Details Date Type Department Care Team (Late st Contact Info) Description 09/05/2023 Abstract [facility] [address] [facility] [address] [facility] [address] [place] [address] Taylor De León, MIKE Social History Tobacco [...] documented as of this encounter Care Teams Safety Investigator Relationship Specialty Start Date End Date Kassie Reyna MD [address] [facility] 1 [place] [address] PCP - General Internal Medicine 07/29/22 documented as of this encounter
--- OUTSIDE RECORDS SUMMARY | 2025-02-07 22:44 | XMS_ITS | Encounter Summary ---
Author Organization [facility] Address [address] [place] [address] Care Team Providers Care Customer Service Advocate Name Role Phone Kassie Reyna MD Primary Care Provider [phone]- [phone] Dialysis, [facility] Unavailable [phone] Lana Quintana MD Unavailable Gómez Whitley MD Unavailable [phone] Encounter Details Date Type Department Care Team (Late st Contact Info) Description 08/19/2023 Scanned Document [facility] Department of Nephrology and Access Surgery [place] [address] [place] [phone] Lana Quintana MD [address] [address] Social History Tobacco Use Types Packs/Day Years Used Date Smoking Tobacco: Never Smokeless Tobacco: Never AUDIT-C Answer Date Recorded Q1: How often do you have a drink containing alcohol? Never 07/12/2023 Q2: How many drinks containi ng alcohol do you have on a typical day when you are drinking? Patient does not drink Q3: How often do you have si x or more drinks on one occasion? Never 07/12/2023 PHQ-2 Answer Date Recorded PHQ-2 Total Score 0 07/12/2023 Comments Unknown Sex and Gender Information Value [...] on filedocumented in this encounter Care Teams Customer Service Advocate Relationship Specialty Start Date End Date Kassie Reyna MD [address] [place] [address] PCP - General Internal Medicine 12/24/21 Dialysis, [facility] [address] [place] [address] Dialysis Unit 09/05/22 Lana Quintana MD [address] [place] [address] Physician Nephrology 09/11/22 Gómez Whitley MD [address] [place] [address] Surgery, General 10/25/22 documented as of this encounter
--- OUTSIDE RECORDS SUMMARY | 2025-02-07 22:44 | XMS_ITS | Encounter Summary ---
Author Organization [facility] Address [address] [place] [address] Phone Care Team Providers Care Airport Planner Name Role Phone Kassie Reyna MD Primary Care Provider + Encounter Details Date Type Department Care Team (Late st Contact Info) Description 11/11/2024 Procedure Pass [facility] [address] [place] [address] Social History Tobacco Use Types Packs/Day Years [...] Description 03/22/2025 3:00 PM EDT Office Visit [facility] Pulmonary Hypertension Clinic [address] [place] [address], 2nd Floor, [address] [place] [address] Zuleika Adams MD [address] [place] [address] [address] [place] [address] [email or web address] documented as of this encounter Visit Diagnoses Not on filedocumented in this encounter Care Teams Airport Planner Relationship Specialty Start Date End Date Kassie Reyna MD [facility] [place] [address] PCP - General Internal Medicine 12/17/21 documented as of this encounter Additional Source Comments The information contained in this document represents components of the legal health record. It is not the complete legal health record.[facility]
--- OUTSIDE RECORDS SUMMARY | 2025-02-07 22:44 | XMS_ITS | Encounter Summary ---
Author Organization [facility] Address [address] [place] [address] Phone Care Team Providers Care District Sales Coordinator Name Role Phone Kassie Reyna MD Primary Care Provider + Encounter Details Date Type Department Care Team (Late st Contact Info) Description 11/09/2024 Procedure Pass [facility] Cardiac Unemployment Benefits Claims Taker [address] [facility], Floor 9, [address] [place] [address] Social History Tobacco Use Types [...] Description 03/22/2025 3:00 PM EDT Office Visit [facility] Pulmonary Hypertension Clinic [address] [place] [address], 2nd Floor, [address] [place] [address] Zuleika Adams MD [address] [place] [address] [address] [place] [address] [email or web address] documented as of this encounter Visit Diagnoses Not on filedocumented in this encounter Care Teams District Sales Coordinator Relationship Specialty Start Date End Date Kassie Reyna MD [facility] [place] [address] PCP - General Internal Medicine 12/17/21 documented as of this encounter Additional Source Comments The information contained in this document represents components of the legal health record. It is not the complete legal health record.[facility]
--- OUTSIDE RECORDS SUMMARY | 2025-02-07 22:44 | XMS_ITS | Encounter Summary ---
Author Organization [facility] Address [address] [place] [address] Care Team Providers Care Americanization Teacher Name Role Phone Kassie Reyna MD Primary Care Provider [phone]- [phone] Dialysis, [facility] Unavailable [phone] Lana Quintana MD Unavailable [phone] Góemz Whitley MD Unavailable Encounter Details Date Type Department Care Team (Late st Contact Info) Description 08/06/2023 [facility] Physicians Department of Nephrology [address] [address] Lana Quintana MD [address] [place] [address] Environmental allergies (Primary Dx); Essential hypertension; Allergy, sequela Social History Tobacco Use Types Packs/Day Years [...] as of this encounter Visit Diagnoses Diagnosis Environmental allergies- Primary Other allergy, other than to medicinal agents Essential hypertension Unspecified essential hypertension Allergy, sequela documented in this encounter Care Teams Americanization Teacher Relationship Specialty Start Date End Date Kassie Reyna MD [address] [place] [address] PCP - General Internal Medicine 12/24/21 Dialysis, [facility] [address] [place] [address] Dialysis Unit 09/05/22 Lana Quintana MD [address] [place] [address] Physician Nephrology 09/11/22 Gómez Whitley MD [address] [place] [address] Surgery, General 10/25/22 documented as of this encounter
--- OUTSIDE RECORDS SUMMARY | 2025-02-07 22:44 | XMS_ITS | Encounter Summary ---
Author Organization [facility] Address [address] [facility] [address] [place] [address] Phone Care Team Providers Care Transaction Coordinator Name Role Phone Kassie Reyna MD Primary Care Provider + Encounter Details Date Type Department Care Team (Late st Contact Info) Description 11/16/2024 Procedure Pass [facility] [address] [place] [address] Social History Tobacco Use Types Packs/Day Years [...] Description 03/22/2025 3:00 PM EDT Office Visit [facility] [place]pert[place] Clinic [address] [place] [address], 2nd Floor, [address] [place] [address] Zuleika Adams MD [address] [place] [address] [address] [place] [address] [email or web address] documented as of this encounter Goals Goal [...] cell phone pictures and video calls like [employer]. If patient is found to be recording [...] on filedocumented in this encounter Care Teams Transaction Coordinator Relationship Specialty Start Date End Date Kassie Reyna MD [address] [place] [address] PCP - General Internal Medicine 12/17/21 documented as of this encounter Additional Source Comments The information contained in this document represents components of the legal health record. It is not the complete legal health record.[facility]
--- OUTSIDE RECORDS SUMMARY | 2025-02-07 22:44 | XMS_ITS | Encounter Summary ---
Author Organization [facility] Address [address] [place] [address] Care Team Providers Care Film Spooler Name Role Phone Kassie Reyna MD Primary Care Provider [phone]- [phone] Encounter Details Date Type Department Care Team (Late st Contact Info) Description 05/30/2023 Scanned Document INTERFACE DEFAULT [address] [place] [phone] System, Provider Not In Social History Tobacco Use Types Packs/Day Years [...] your living situation today? I have a [facility] place to live 08/13/2022 Interpersonal Safety [...] documented as of this encounter Care Teams Film Spooler Relationship Specialty Start Date End Date Kassie Reyna MD [address] [address] PCP - General Internal Medicine 07/29/22 documented as of this encounter
--- OUTSIDE RECORDS SUMMARY | 2025-02-07 22:45 | XMS_ITS | Clinical Summary ---
Author Organization [facility] Address [address] [place] [address] Care Team Providers Care Asset Recovery Specialist Name Role Phone Kassie Reyna MD Primary Care Provider [phone] Dialysis, [facility] Unavailable [phone] Lana Quintana MD Unavailable [phone] Gómez Whitley MD Unavailable Allergies Active Allergy Reactions Criticality Noted Date Comments Clonidine Other (See Comments) 02/11/2023 Edema and generalized swelling per patient Gabapentin GI Intolerance/Nausea/ Vomiting,Rash/Dunreith titis Low 05/27/2019 Dizziness, itching, fatigue Lisinopril Shortness Of Breath High 03/14/2018 Methoxy Polyethylene Glycol-Epoetin Beta Rash/Dermatitis,Linsey rtness Of Breath High 09/15/2018 Mircera Tolerated Epogen fine Metoprolol Rash/Dermatitis Low 05/27/2019 Penicillins Hives,Rash/Dermatit is,Anaphylaxis High 10/03/2015 Prednisone GI Intolerance/Nausea/ Vomiting,Rash/Dunreith titis Medium 10/04/2015 Swelling x 1 episodes. She has taken prednisone at other times without a problem Methocarbamol Itching,Other (See Comments) Low 09/28/2022 Throat closes Tramadol Itching Low 03/17/2019 Medications levETIRAcetam (KEPPRA) 250 MG tablet Take 1 tablet (250 mg total) by mouth Dialysis days only. Friday, , Friday11/03/19 22 Active levETIRAcetam (KEPPRA) 500 MG tablet Take 1 tablet (500 mg total) by mouth every morning. 11/10/19 Active NIFEdipine (PROCARDIA XL) 60 MG 24 hr tablet Take 1 tablet (60 mg total) by mouth 2 (two) times a day. 10/04/19 Active albuterol (PROVENTIL) (0.083%) 2.5 mg/3 mL nebulizer solution Inhale every 4 (four) hours. 03/26/20 Active torsemide (DEMADEX) 20 MG tablet Take 2 tablets (40 mg total) by mouth 3 times a day. Active albuterol (PROVENTIL HFA; VENTOLIN HFA) 108 (90 Base) MCG/ACT inhaler Inhale 2 puffs 4 times daily (every 6 hours) as needed for wheezing. Active epoetin michael (EPOGEN,PROCRIT) 89420 UNIT/ML injection Inject 1 mL (20,000 Units total) under the skin 3 (three) times a week on Friday, , Friday. Active Iron Sucrose (VENOFER IV) Infuse 50 mg into a venous catheter once a week. Active carvedilol (COREG) 12.5 MG tablet Take 3 tablets (37.5 mg total) by mouth 2 (two) times a day with meals. Active D3-50 1.25 MG (38588 UT) capsuleIndication s:Vitamin D deficiency TAKE 1 CAPSULE (50,000 UNITS TOTAL) BY MOUTH ONCE A WEEK 12 capsule 1 08/04/19 Active Additional Information Patient taking differently:50,000 Units Oral Every week,Mondays, Reason: Other, Reported on 02/11/2024 diphenhydrAMINE (BENADRYL) 12.5 mg/5 mL liquidIndications :Environmental allergies,Allergy , sequela Take 5 mL (12.5 mg total) by mouth 4 times daily (every 6 hours) as needed for allergies. 118 mL 3 08/06/19 Active atorvastatin (LIPITOR) 40 MG tablet every morning. 02/06/20 Active oxyCODONE (ROXICODONE) 15 MG immediate release tablet TAKE 1 TABLET BY MOUTH EVERY 6 HOURS NEEDED FOR PAIN FOR 14 DAYS Active PANTOprazole (PROTONIX) 40 MG EC tabletIndications :Dyspepsia Take 1 tablet (40 mg total) by mouth daily. 90 tablet 3 02/11/20 24 Active Additional Information Patient taking differently:40 mg Oral2 times daily, Reason: Other, Reported on 02/11/2024 sucralfate (CARAFATE) 1 g tabletIndications :Dyspepsia Take 1 tablet (1 g total) by mouth 4 (four) times a day before meals and nightly. On an empty stomach. 120 tablet 3 02/11/20 24 Active sodium zirconium cyclosilicate (LOKELMA) 10 g packet Take by mouth as needed. 10/06/19 24 024 Discontin ued(Patie nt Discharge ) Active Problems Patient Care Coordination No te Formatting of this note migh t be different from the original. Problem Noted Date Diagnosed Date Epigastric pain 01/02/2024 Assessment & Plan (01/02/2024 9:05 AM EDT): ?inadequate acid suppression ? Gastroparesis Will plan for EGD to evaluate for mucosal disease and to evaluate the extent of reflux, parkinson's, bx for h. Pylori and celiac. May need to consider increasing PPI dose pending results Egd to be done in hospital setting given chronic medical conditions She is not on AC Esophageal dysphagia 01/02/2024 Assessment & Plan (01/02/2024 9:02 AM EDT): ? Esophagitis ?dysmotility EGD per above, evaluate for strictures as well F/u after exam consider motility study pending results / clinical course Chest pain 07/12/2023 Pericardial effusion 07/12/2023 Fluid overload 06/11/2022 Need for acute hemodialysis 05/16/2022 Volume overload 12/25/2021 Immunizations Immunization Administration Dates Next Due Influenza, Unspecified 04/08/2022 Social History Tobacco Use Types Packs/Day Years Used Date Smoking Tobacco: Never Smokeless Tobacco: Never Tobacco Cessation:Counseling Given: Not Answered Alcohol Use Standard Drinks/Week Comments Not Currently 0 (1 standard drink = 0.6 oz pur e alcohol) AUDIT-C Answer Date Recorded Q1: How often do you have a drink containing alcohol? Never 02/11/2024 Q2: How many drinks containi ng alcohol do you have on a typical day when you are drinking? Patient does not drink Q3: How often do you have si x or more drinks on one occasion? Never 02/11/2024 PHQ-2 Answer Date Recorded PHQ-2 Total Score 0 07/12/2023 Comments Unknown Sex and Gender Information Value Date Recorded Sex Assigned at Female 07/15/2023 2:01 PM EST Legal Sex Female 5:03 PM EDT Gender Identity Female 07/15/2023 2:01 PM EST Sexual Orientation Heterosexual (straight) 07/15 2:01 PM EST Last Filed Vital Signs Vital Sign Reading Time Taken Comments Blood Pressure 162/84 02/11/2024 1:21 PM EDT Pulse 64 01/02/2024 3:40 PM EDT Temperature 36.3 C (97.4 F) 01/02/2024 2:31 PM EDT Respiratory Rate 18 01/02/2024 3:36 PM EDT Oxygen Saturation 93% 01/02/2024 3:50 PM EDT Inhaled Oxygen Concentration - - Weight 68 kg (150 lb) 02/11/2024 4:58 PM EDT Height 165.1 cm (5' 5 ) 02/11/2024 4:58 PM EDT Body Mass Index 24.96 02/11/2024 4:58 PM EDT Plan of Treatment Health Maintenance Due Date Last Done Comments Hepatitis C Virus Screening 1986 DTaP/Tdap/Td Vaccines (1 - Tdap) 2005 Pneumococcal Vaccine: Pediat rob (0-5 Years) and At-Risk Patients (6 to 49 Years) (1 of 2 - PCV) 2005 Hepatitis B Vaccines (1 of 3 - Risk Dialysis 4-dose series) 2006 Pap Smear (Ages 21-65) 2007 HPV Vaccines (1 - 3-dose SCD M series) 2013 Influenza Vaccine 12/31/2024 04/08/2022, , 04/03/2021, Additional history exists COVID-19 Vaccine ( - 2023-2 5 season) 2025 HIV Screening Completed 08/13/2022, 03/03, 11/10/2018 Chronic Controlled Substance User PDMP Review Discontinued 07/11/2023, 01/10/2023, 08/22/2022 Insurance MEDICARE PART A & B [facility] Member Subscriber Plan / Payer (Ef fective 2022-) Name:Flavio Morris Relation to Subscriber:Self Name:Flavio Morris Payer ID:[id number] Group ID:Not on file Type:Not on file Address: [address] [id number] MEDICAID OUT OF STATE [facility] MEDICARE PART A & B [facility] MEDICARE PART A & B [facility] Advance Directives * Full Code (Latest Code Status on File) Date Activated Date Inactivated Comments 07/12/2023 1:29 PM 01/02/2024 2:10 PM * Full Code Date Activated Date Inactivated Comments 06/11/2022 3:43 PM 09/27/2022 9:34 PM * Full Code Date Activated Date Inactivated Comments 05/16/2022 7:09 PM 06/11/2022 8:43 AM Question Answer Comments Decision Thoroughly Discussed with: Patient * Full Code Date Activated Date Inactivated Comments 12/25/2021 2:07 AM 05/16/2022 12:39 PM Care Teams Asset Recovery Specialist Relationship Specialty Start Date End Date Kassie Reyna MD [address] [place] [address] PCP - General Internal Medicine 12/24/21 Dialysis, [facility] [address] [place] [address] Dialysis Unit 09/05/22 Lana Quintana MD [address] [place] [address] Physician Nephrology 09/11/22 Gómez Whitley MD [address] [place] [address] Surgery, General 10/25/22
--- OUTSIDE RECORDS SUMMARY | 2025-02-07 22:45 | XMS_ITS | Encounter Summary ---
Author Organization [facility], Address [address] [place] [address] Phone Care Team Providers Care Handbag Operator Name Role Phone Rashid Helton MD Primary Care Provider [phone] Encounter Details Date Type Department Care Team (Late st Contact Info) Description 01/10/2022 Documentation Only [facility], [address] [place] [id number] Malick Arechiga [address] [place] [address] Social History Tobacco Use Types [...] on filedocumented in this encounter Care Teams Handbag Operator Relationship Specialty Start Date End Date Rashid Helton MD [facility] [address] [place] [address] PCP - General 06/12/20 documented as of this encounter
--- OUTSIDE RECORDS SUMMARY | 2025-02-07 22:45 | XMS_ITS | Encounter Summary ---
Author Organization [facility] Address [address] [place] [address] Phone Care Team Providers Care Retail Stocker Name Role Phone Kassie Reyna MD Primary Care Provider + Encounter Details Date Type Department Care Team (Late st Contact Info) Description 11/01/2024 Procedure Pass [facility] Emergency Imaging, [address], Floor 1 [place] [address] Social History Tobacco Use Types Packs/Day Years [...] PM EDT documented as of this encounter Functional Status * Calculated C-SSRS Risk Score (Lifetime/Recent) Answer Date of Assessment Author No Risk Indicated 11/01/2024 2:14 AM EDT Daria Arechiga RN * [place] Suicide Severity Rating Scale (Screener/Recent Self-Report) Question Answer Date of Assessment Author 1. Wish to be (Past 1 Month) No 025 2:14 AM EDT Daria Arechiga, RN 2. Non-Specific Active Suici snow Thoughts (Past 1 Month) No 11/01/2024 2:14 AM EDT Arechiga, Adolfo jaky, RN 6. Suicidal Behavior (Lifetime) No 5 2:14 AM EDT Daria Arechiga RN documented as of this encounter Plan of Treatment Upcoming Encounters Date Type Department Care Team (Late st Contact Info) Description 03/22/2025 3:00 PM EDT Office Visit [facility] Pulmonary Hypertension Clinic [address] [facility], 2nd Floor, [address] [place] [address] Zuleika Adams MD [address] [place] [address] [address] [place] [address] [email or web address] documented as of this encounter Visit Diagnoses Not on filedocumented in this encounter Care Teams Retail Stocker Relationship Specialty Start Date End Date Kassie Reyna MD [address] [place] [address] PCP - General Internal Medicine 12/17/21 documented as of this encounter Additional Source Comments The information contained in this document represents components of the legal health record. It is not the complete legal health record.[facility]
--- OUTSIDE RECORDS SUMMARY | 2025-02-07 22:45 | XMS_ITS | Encounter Summary ---
Author Organization [facility] Address [address] [place] [address] Phone Care Team Providers Care Top Closer Name Role Phone Kassie Reyna MD Primary Care Provider + Encounter Details Date Type Department Care Team (Late st Contact Info) Description 11/04/2024 Procedure Pass [facility] [address] [place] [address] Social History Tobacco Use Types Packs/Day Years [...] Description 03/22/2025 3:00 PM EDT Office [place] [facility] [place] [address] [place] [address], 2nd Floor, [address] [place] [address] Zuleika Adams MD [address] [place] [address] [address] [place] [address] [email or web address] documented as of this encounter Visit Diagnoses Not on filedocumented in this encounter Care Teams Top Closer Relationship Specialty Start Date End Date Kassie Reyna MD [facility] [place] [address] PCP - General Internal Medicine 12/17/21 documented as of this encounter Additional Source Comments The information contained in this document represents components of the legal health record. It is not the complete legal health record.[facility]
--- OUTSIDE RECORDS SUMMARY | 2025-02-07 22:45 | XMS_ITS | Encounter Summary ---
Author Organization [facility] Address [address] [place] [address] Care Team Providers Care Squad Boss Name Role Phone Kassie Reyna MD Primary Care Provider [phone]- [phone] Dialysis, [facility] Unavailable [phone] Lana Quintana MD Unavailable Gómez Whitley MD Unavailable [phone] Encounter Details Date Type Department Care Team (Late st Contact Info) Description 06/14/2022 Scanned Document [address] [facility] [address] [place] [phone] Provider, Generic Social History Tobacco Use Types Packs/Day Years [...] Orientation Heterosexual (straight) 07/15 2:01 PM EST COVID-19 Exposure Response Date Recorded In the last 10 days, have yo u been in contact with someone who was confirmed or suspected to have Coronavirus/COVID-19? No / Unsure 06/11/2022 8:43 AM EST documented as of this encounter Plan of Treatment Not on file documented as of this encounter Procedures Procedure Name Priority Date/Time Associated Diagnosis Comments HOME CARE SIGNED ORDERS 06/14/2022 documented in this encounter Results * HOME CARE SIGNED ORDERS (06/14/2022) Narrative 06/14/2022 Ordered by an unspecified provider. us Generic Provider HX AMB PROCEDURES NO RESULTS RO UTING Final Result documented in this encounter Visit Diagnoses Not on filedocumented in this encounter Care Teams Squad Boss Relationship Specialty Start Date End Date Kassie Reyna MD [address] [place] [address] PCP - General Internal Medicine [facility] [address] [place] [address] Dialysis Unit 09/05/22 Lana Quintana MD [address] [place] [address] Physician Nephrology 09/11/22 Gómez Whitley MD [address] [place] [address] Surgery, General 10/25/22 documented as of this encounter
--- OUTSIDE RECORDS SUMMARY | 2025-02-07 22:45 | XMS_ITS | Encounter Summary ---
Author Organization [facility] Address [address] [address] [place] [address] Phone Care Team Providers Care Cup Trimming Machine Operator Name Role Phone Kassie Reyna MD Primary Care Provider + Encounter Details Date Type Department Care Team (Late st Contact Info) Description 11/01/2024 Procedure Pass [facility] [place], [address], Floor 1 [place] [address] Social History Tobacco Use Types Packs/Day Years [...] 2:14 AM EDT Daria Arechiga RN * [place] Suicide Severity Rating Scale (Screener/Recent Self-Report) Question [...] Description 03/22/2025 3:00 PM EDT Office Visit [facility] [address] [facility], 2nd Floor, [address] [place] [address] Zuleika Adasm MD [address] [place] [address] [address] [place] [address] [email or web address] documented as of this encounter Visit Diagnoses Not on filedocumented in this encounter Care Teams Cup Trimming Machine Operator Relationship Specialty Start Date End Date Kassie Reyna MD [address] [place] [address] PCP - General Internal Medicine 12/17/21 documented as of this encounter Additional Source Comments The information contained in this document represents components of the legal health record. It is not the complete legal health record.[facility]
--- OUTSIDE RECORDS SUMMARY | 2025-02-07 22:45 | XMS_ITS | Encounter Summary ---
Author Organization [facility] Address [address] [place] [address] Care Team Providers Care Retail Interior Designer Name Role Phone Kassie Reyna MD Primary Care Provider [phone]- [phone] Dialysis, [facility] Unavailable [phone] Lana Quintana MD Unavailable Gómez Whitley MD Unavailable [phone] Encounter Details Date Type Department Care Team (Late st Contact Info) Description 10/25/2022 Scanned Document [facility] Department of Nephrology and Access Surgery [address] [phone] Woody Freire, DO [address] [facility] [address] [facility] [address] [place], [place] [id number] Social History Tobacco Use Types Packs/Day Years [...] was confirmed or suspected to have Coronavirus/COVID-19? Unable to assess 10/02/2022 10:24 AM EDT documented as of this encounter Plan of Treatment Not on file documented as of this encounter Visit Diagnoses Not on filedocumented in this encounter Care Teams Retail Interior Designer Relationship Specialty Start Date End Date Kassie Reyna MD [address] [place] [address] PCP - General Internal Medicine 12/24/21 Dialysis, [facility] [address] [place] [address] Dialysis Unit 09/05/22 Lana Quintana MD [address] [place] [address] Physician Nephrology 09/11/22 Gómez Whitley MD [address] [place] [address] Surgery, General 10/25/22 documented as of this encounter
--- OUTSIDE RECORDS SUMMARY | 2025-02-07 22:45 | XMS_ITS | Encounter Summary ---
Author Organization [facility] Address [address] [place] [address] Phone Care Team Providers Care Tar Boiler Name Role Phone Kassie Reyna MD Primary Care Provider + Encounter Details Date Type Department Care Team (Late st Contact Info) Description 11/02/2024 Procedure Pass [facility] [address] [place] [address] Social History Tobacco Use Types Packs/Day Years [...] Description 03/22/2025 3:00 PM EDT Office Visit [facility] Pul[facility]ension Clinic [address] [place] [address], 2nd Floor, [address] [place] [address] Zuleika Adams MD [address] [place] [address] [address] [place] [address] [email or web address] documented as of this encounter Visit Diagnoses Not on filedocumented in this encounter Care Teams Tar Boiler Relationship Specialty Start Date End Date Kassie Reyna MD [facility] [place] [address] PCP - General Internal Medicine 12/17/21 documented as of this encounter Additional Source Comments The information contained in this document represents components of the legal health record. It is not the complete legal health record.[facility]
--- OUTSIDE RECORDS SUMMARY | 2025-02-07 22:45 | XMS_ITS | Encounter Summary ---
Author Organization [facility] Address [address] [place] [address] Care Team Providers Care Arborist Representative Name Role Phone Kassie Reyna MD Primary Care Provider [phone] Dialysis, [facility] Unavailable [phone] Lana Quintana MD Unavailable [phone] Gómez Whitley MD Unavailable Reason for Visit * Reason Comments Medication Refill Encounter Details Date Type Department Care Team (Late st Contact Info) Description 10/23/2022 Refill [facility] Department of Nephrology [address] [address] Lana Quintana MD [address] [place] [address] Essential hypertension Social History Tobacco Use Types Packs/Day Years [...] as of this encounter Visit Diagnoses Diagnosis Essential hypertension Unspecified essential hypertension documented in this encounter Care Teams Arborist Representative Relationship Specialty Start Date End Date Kassie Reyna MD [address] [place] [address] PCP - General Internal Medicine 12/24/21 Dialysis, [facility] [address] [place] [address] Dialysis Unit 09/05/22 Lana Quintana MD [address] [place] [address] Physician Nephrology 09/11/22 Gómez Whitley MD [address] [place] [address] Surgery, General 10/25/22 documented as of this encounter
--- OUTSIDE RECORDS SUMMARY | 2025-02-07 22:45 | XMS_ITS | Encounter Summary ---
Author Organization [facility], Address [address] [place] [address] Phone Care Team Providers Care Street Light Servicer Helper Name Role Phone Rashid Helton MD Primary Care Provider [phone] Reason for Visit * Reason Comments Med Refill Encounter Details Date Type Department Care Team (Late st Contact Info) Description 01/22/2022 Refill [facility] [address] [place] [phone] Waqar Wellington MD [address] [place] [address] [place] [phone] Social History Tobacco Use Types Packs/Day Years Used Date Smoking Tobacco: Never Alcohol Use Standard Drinks/Week Comments No 0 (1 standard drink = 0.6 oz pure alcohol) Alcoholic Drinks/day: Occasional social drink Comments Unknown Sex and Gender Information Value Date Recorded Sex Assigned at Not on file Legal Sex Female 4:35 PM EST Gender Identity Not on file Sexual Orientation Not on file COVID-19 Exposure Response Date Recorded In the last 10 days, have yo u been in contact with someone who was confirmed or suspected to have Coronavirus/COVID-19? No / Unsure 01/23/2022 11:31 AM EDT documented as of this encounter Plan of Treatment Not on file documented as of this encounter Visit Diagnoses Not on filedocumented in this encounter Care Teams Street Light Servicer Helper Relationship Specialty Start Date End Date Rashid Helton MD [facility] [address] [place] [address] PCP - General 06/12/20 documented as of this encounter
--- OUTSIDE RECORDS SUMMARY | 2025-02-07 22:45 | XMS_ITS | Encounter Summary ---
Author Organization [facility] Address [address] [place] [address] Phone Care Team Providers Care Water Project Engineer Name Role Phone Kassie Reyna MD Primary Care Provider + Encounter Details Date Type Department Care Team (Late st Contact Info) Description 11/01/2024 Procedure Pass [facility] [place] - RF/IR [address] [facility], 2nd [place] [address] Social History Tobacco Use Types Packs/Day Years [...] 2:14 AM EDT Daria Arechiga RN * [place] Suicide Severity Rating Scale (Screener/Recent Self-Report) Question [...] Description 03/22/2025 3:00 PM EDT Office Visit [facility] [place] [address] [facility], 2nd Floor, [address] [place] [address] Zuleika Adams MD [address] [place] [address] [address] [place] [address] [email or web address] documented as of this encounter Visit Diagnoses Not on filedocumented in this encounter Care Teams Water Project Engineer Relationship Specialty Start Date End Date Kassie Reyna MD [address] [place] [address] PCP - General Internal Medicine 12/17/21 documented as of this encounter Additional Source Comments The information contained in this document represents components of the legal health record. It is not the complete legal health record.[facility]
--- OUTSIDE RECORDS SUMMARY | 2025-02-07 22:45 | XMS_ITS | Encounter Summary ---
Author Organization [facility] Address [address] [place] [address] Care Team Providers Care Chicken Handler Name Role Phone Kassie Reyna MD Primary Care Provider [phone] Dialysis, [facility] Unavailable [phone] Lana Quintana MD Unavailable Gómez Whitley MD Unavailable [phone] Reason for Visit * Reason Comments Medication Refill Encounter Details Date Type Department Care Team (Late st Contact Info) Description 10/25/2022 Refill [facility] Department of Nephrology [address] [phone] Lana Quintana MD [address] [place] [address] Essential hypertension Social History Tobacco Use Types [...] hypertension documented in this encounter Care Teams Chicken Handler Relationship Specialty Start Date End Date Kassie Reyna MD [address] [place] [address] PCP - General Internal Medicine 12/24/21 Dialysis, [facility] [address] [place] [address] Dialysis Unit 09/05/22 Lana Quintana MD [address] [place] [address] Physician Nephrology 09/11/22 Gómez Whitley MD [address] [place] [address] Surgery, General 10/25/22 documented as of this encounter
--- OUTSIDE RECORDS SUMMARY | 2025-02-07 22:45 | XMS_ITS | Encounter Summary ---
Author Organization [facility] Address [address] [place] [address] Phone Care Team Providers Care Rn Case Manager Hospice Name Role Phone Kassie Reyna MD Primary Care Provider + Encounter Details Date Type Department Care Team (Late st Contact Info) Description 11/03/2024 Procedure Pass [facility] [place] [facility] Re[place]ursement [address] [facility], [address] 9, [address] [place] [address] Social History Tobacco Use Types [...] Description 03/22/2025 3:00 PM EDT Office [place] [facility] [address] [place] [address], 2nd Floor, [address] [place] [address] Zuleika Adams MD [address] [place] [address] [address] [place] [address] [email or web address] documented as of this encounter Visit Diagnoses Not on filedocumented in this encounter Care Teams Rn Case Manager Hospice Relationship Specialty Start Date End Date Kassie Reyna MD [facility] [place] [address] PCP - General Internal Medicine 12/17/21 documented as of this encounter Additional Source Comments The information contained in this document represents components of the legal health record. It is not the complete legal health record.[facility]
--- OUTSIDE RECORDS SUMMARY | 2025-02-07 22:45 | XMS_ITS | Encounter Summary ---
Author Organization [facility] Address [address] [place] [address] Phone Care Team Providers Care Drum Worker Name Role Phone Kassie Reyna MD Primary Care Provider + Encounter Details Date Type Department Care Team (Late st Contact Info) Description 11/03/2024 Procedure Pass [facility] Emergency Radiology, [address], Floor 1 [place] [address] Social History Tobacco Use Types Packs/Day Years [...] Description 03/22/2025 3:00 PM EDT Office Visit [facility]pertension Clinic [address] [place] [address], 2nd Floor, [address] [place] [address] Zuleika Adams MD [address] [place] [address] [address] [place] [address] [email or web address] documented as of this encounter Visit Diagnoses Not on filedocumented in this encounter Care Teams Drum Worker Relationship Specialty Start Date End Date Kassie Reyna MD [address] [place] [address] PCP - General Internal Medicine 12/17/21 documented as of this encounter Additional Source Comments The information contained in this document represents components of the legal health record. It is not the complete legal health record.[facility]
--- OUTSIDE RECORDS SUMMARY | 2025-02-07 22:46 | XMS_ITS | Encounter Summary ---
Author Organization [facility], Address [address] [place] [address] Phone Care Team Providers Care Front Desk Assistant Name Role Phone Rashid Helton MD Primary Care Provider Encounter Details Date Type Department Care Team (Late st Contact Info) Description 02/03/2025 Documentation Only [facility], [address] [place] [phone] Malick Arechiga [address] [place] [address] Social History Tobacco Use Types [...] on filedocumented in this encounter Care Teams Front Desk Assistant Relationship Specialty Start Date End Date Rashid Helton MD [facility] [address] [place] [address] PCP - General 06/12/20 documented as of this encounter
--- OUTSIDE RECORDS SUMMARY | 2025-02-07 22:46 | XMS_ITS | Encounter Summary ---
Author Organization [facility] Address [address] [place] [address] Care Team Providers Care Shoddy Mill Worker Name Role Phone Kassie Reyna MD Primary Care Provider [phone] Encounter Details Date Type Department Care Team (Late st Contact Info) Description 09/17/2016 Scanned Document [facility] [address] [facility] [address] [facility] [address] [place] [address] External, Provider Social History Tobacco Use Types Packs/Day Years Used Date Smoking Tobacco: Never Alcohol Use Standard Drinks/Week Comments No 0 (1 standard drink = 0.6 oz pur e alcohol) Comments Unknown Sex and Gender Information Value [...] Onset Date Last Indicated Resolved Time R/O COVID-19 10/25/2020 10/25/2020 10/25/2020 3:23 AM EDT R/O COVID-19 01/17/2021 01/17/2021 01/17/2021 11:2 3 PM EDT R/O COVID-19 02/05/2021 02/05/2021 02/05/2021 1:16 PM EDT R/O COVID-19 02/15/2021 02/15/2021 02/15/2021 12:1 5 PM EDT R/O COVID-19 02/17/2021 02/17/2021 02/17/2021 11:1 0 AM EDT R/O COVID-19 02/21/2021 02/21/2021 02/21/2021 8:48 AM EDT R/O COVID-19 02/26/2021 02/26/2021 02/26/2021 6:52 AM EDT R/O COVID-19 03/01/2021 03/01/2021 03/01/2021 5:32 PM EDT R/O COVID-19 03/05/2021 03/05/2021 03/05/2021 3:04 AM EDT R/O COVID-19 03/08/2021 03/08/2021 03/08/2021 2:19 PM EDT R/O COVID-19 03/12/2021 03/12/2021 03/12/2021 9:55 AM EDT R/O COVID-19 03/15/2021 03/15/2021 03/15/2021 5:20 PM EDT R/O COVID-19 07/25/2021 07/25/2021 07/25/2021 6:19 PM EST R/O COVID-19 08/07/2021 08/07/2021 08/07/2021 5:20 PM EST R/O Influenza 08/07/2021 08/07/2021 08/07/2021 5:2 0 PM EST Influenza A 08/07/2021 08/07/2021 08/08/2021 7:19 PM EST R/O Respiratory Virus 06/26/2022 06/26/20222022 2:22 AM EST R/O COVID-19 06/26/2022 06/26/2022 06/26/2022 2:22 AM EST R/O Influenza 07/22/2024 07/22/2024 07/22/2024 4:4 1 PM EST R/O RSV 07/22/2024 07/22/2024 07/22/2024 4:41 PM EST R/O Respiratory Virus 07/22/2024 07/22/20242024 4:41 PM EST R/O COVID-19 07/22/2024 07/22/2024 07/22/2024 4:41 PM EST Influenza A 07/22/2024 07/22/2024 08/02/2024 1:13 PM EST documented as of this encounter Care Teams Shoddy Mill Worker Relationship Specialty Start Date End Date Kassie Reyna MD [address] [address] PCP - General Internal Medicine 07/29/22 documented as of this encounter
--- OUTSIDE RECORDS SUMMARY | 2025-02-07 22:46 | XMS_ITS | Encounter Summary ---
Author Organization [facility] Address [address] [place] [address] Care Team Providers Care Automotive Fuel Systems Converter Name Role Phone Kassie Reyna MD Primary Care Provider [phone]- [phone] Encounter Details Date Type Department Care Team (Late st Contact Info) Description 02/15/2016 Scanned Document [facility] [address] [facility] [address] [facility] [address] [place] [address] External, Provider Social History Tobacco Use Types [...] PM EDT R/O COVID-19 02/05/2021 02/05/2021 02/05/2021 1:1 6 PM EDT R/O COVID-19 02/15/2021 02/15/2021 02/15/2021 [...] documented as of this encounter Care Teams Automotive Fuel Systems Converter Relationship Specialty Start Date End Date Kassie Reyna MD [address] [address] PCP - General Internal Medicine 07/29/22 documented as of this encounter
--- OUTSIDE RECORDS SUMMARY | 2025-02-07 22:46 | XMS_ITS | Encounter Summary ---
Author Organization [facility] Address [address] [place] [address] Care Team Providers Care Mortgage Or Loan Underwriter Name Role Phone Kassie Reyna MD Primary Care Provider [phone]- [phone] Encounter Details Date Type Department Care Team (Late st Contact Info) Description 08/03/2021 Scanned Document [facility] [address] [facility] [address] [facility] 4th [place] [address] External, Provider Social History Tobacco Use Types Packs/Day Years Used Date Smoking Tobacco: Never Alcohol Use Standard Drinks/Week Comments No 0 (1 standard drink = 0.6 oz pur e alcohol) PHQ-2 Answer Date Recorded PHQ-2 Total Score 0 03/08/2021 Comments No Sex and Gender Information Value Date Recorded Sex Assigned at Female 07/22/2024 11:05 PM EST Legal Sex Female 3:06 PM EDT Gender Identity Female 07/22/2024 11:05 PM EST Sexual Orientation Not on file COVID-19 Exposure Response Date Recorded In the last month, have you been in contact with someone who was confirmed or suspected to have Coronavirus / COVID-19? No / Unsure 08/02/2021 9:50 AM EST documented as of this encounter Plan of Treatment Not on file documented as of this encounter Procedures Procedure Name Priority Date/Time Associated Diagnosis Comments CARDIAC CATHETERIZATION RESULT SCAN Routine 06/06/2018 documented in this encounter Results * Cardiac Catheterization Result Scan (06/06/2018) us Provider External CV CARDIAC REPORT (CVR) Final Result documented in this encounter Visit Diagnoses Not on filedocumented in this encounter Additional Health Concerns Infection Onset Date Last Indicated Resolved Time R/O COVID-19 08/07/2021 08/07/2021 08/07/2021 5:20 PM [...] Noted Time PHQ-9 Depression Total Score: 0 03/08/20 3:00 PM EDT documented as of this encounter Care Teams Mortgage Or Loan Underwriter Relationship Specialty Start Date End Date Kassie Reyna MD [address] [address] PCP - General Internal Medicine 07/29/22 documented as of this encounter
--- OUTSIDE RECORDS SUMMARY | 2025-02-07 22:46 | XMS_ITS | Encounter Summary ---
Author Organization [facility] Address [address] [place] [address] Phone Care Team Providers Care Building Tech Name Role Phone Kassie Reyna MD Primary Care Provider + Encounter Details Date Type Department Care Team (Late st Contact Info) Description 11/27/2024 Procedure Pass [facility] Imaging - RF/IR [address] [place] [address] Social History Tobacco Use Types Packs/Day Years [...] Description 03/22/2025 3:00 PM EDT Office Visit [facility] Pulmonary Hypertension Clinic [address] [place] [address], 2nd Floor, [address] [place] [address] Zuleika Adams MD [address] [place] [address] [address] [place] [address] [email or web address] documented as of this encounter Goals Goal Patient Goal Type Associated Problems Recent Progress Patient-Stated? Author Safety Care Plan Acute Care Plan Italia Foster, RN Note: Safety Care Plan Objectives Provide Ms. Mroris with quality medical and nursing care. Allow [...] cell phone pictures and video calls like [employer]. If patient is found to be recording [...] on filedocumented in this encounter Care Teams Building Tech Relationship Specialty Start Date End Date Kassie Reyna MD [address] [place] [address] PCP - General Internal Medicine 12/17/21 documented as of this encounter Additional Source Comments The information contained in this document represents components of the legal health record. It is not the complete legal health record.[facility]
--- OUTSIDE RECORDS SUMMARY | 2025-02-07 22:46 | XMS_ITS | Encounter Summary ---
Author Organization [facility] Address [address] [place] [address] Phone Care Team Providers Care Cover Operator Name Role Phone Rashid Helton MD Primary Care Provider [phone] Encounter Details Date Type Department Care Team (Late st Contact Info) Description 10/13/2024 Documentation Only [facility], [address] [place] [phone] Roby Sosa MD [address] [facility] [place] [address] Social History Tobacco Use Types [...] on filedocumented in this encounter Care Teams Cover Operator Relationship Specialty Start Date End Date Rashid Helton MD [facility] [address] [place] [address] PCP - General 06/12/20 documented as of this encounter
--- OUTSIDE RECORDS SUMMARY | 2025-02-07 22:46 | XMS_ITS | Encounter Summary ---
Author Organization [facility] Address [address] [place] [address] Phone Care Team Providers Care Tar Chaser Name Role Phone Rashid Helton MD Primary Care Provider [phone] Encounter Details Date Type Department Care Team (Late st Contact Info) Description 10/06/2023 Documentation Only [facility] [place], [address] [place] [phone] Tod Stone MD [address] [place] [address] Social History Tobacco Use Types [...] filedocumented in this encounter Care Teams Tar Chaser Relationship Specialty Start Date End Date Rashid Helton MD [facility] [address] [place] [address] PCP - General 06/12/20 documented as of this encounter
--- OUTSIDE RECORDS SUMMARY | 2025-02-07 22:46 | XMS_ITS | Encounter Summary ---
Author Organization [facility] Address [address] [place] [address] Care Team Providers Care Microarray Operations Vice President Name Role Phone Kassie Reyna MD Primary Care Provider [phone]- [phone] Encounter Details Date Type Department Care Team (Late st Contact Info) Description 03/07/2020 Abstract [facility] [address] [facility] [address] [facility] [address] [place] [address] Katey Parr Social History Tobacco Use Types Packs/Day Years [...] documented as of this encounter Care Teams Microarray Operations Vice President Relationship Specialty Start Date End Date Kassie Reyna MD [address] [address] PCP - General Internal Medicine 07/29/22 documented as of this encounter
--- OUTSIDE RECORDS SUMMARY | 2025-02-07 22:46 | XMS_ITS | Encounter Summary ---
Author Organization [facility] Address [address] [place] [address] Care Team Providers Care Ham Curer Name Role Phone Kassie Reyna MD Primary Care Provider [phone]- [phone] Reason for Referral * Non-Referral (Routine) - Closed Specialty Diagnoses / Procedures Referred By Megan araujo Referred To Contact Procedures EEG Scan External, Provider Referral ID Status Reason Start Date Expiration Date Visits Re quested Visits Authorized [id number] Closed 01/10/2017 01/10/2018 1 1 Encounter Details Date Type Department Care Team (Late st Contact Info) Description 01/10/2017 Scanned Document [facility] [address] [place] [address] External, Provider Social History Tobacco Use Types [...] Name Priority Date/Time Associated Diagnosis Comments CARDIAC EKG RESULT SCAN Routine 10/08/2016 XRAY RESULT SCAN Routine 09/21/2016 PATHOLOGY/CYTOLOGY SCAN Routine 09/18/2016 CARDIAC ECHO RESULT SCAN Routine 08/25/2016 CT RESULT SCAN Routine 08/23/2016 US RESULT SCAN Routine 06/05/2016 LAB SCAN Routine 02/09/2016 PATHOLOGY/CYTOLOGY SCAN Routine 11/15/2015 MRI RESULT SCAN Routine 07/25/2015 EEG SCAN Routine 07/24/2015 documented in this encounter Results * Cardiac EKG Result Scan (10/08/2016) us Provider External CV CARDIAC REPORT (CVR) Final Result * Xray Result Scan (09/21/2016) us Provider External IMG SCAN REPORTS Final Result * Pathology/Cytology Scan (09/18/2016) us Provider External PATHOLOGY/CYTOLOGY ORDERABLES Final Result * Cardiac Echo Result Scan (08/25/2016) us Provider External CV CARDIAC REPORT (CVR) Final Result * CT Result Scan (08/23/2016) us Provider External IMG SCAN REPORTS Final Result * US Result Scan (06/05/2016) us Provider External IMG SCAN REPORTS Final Result * Lab Scan (02/09/2016) Blood specimen (specimen) us Provider External LAB BLOOD ORDERABLES Final Res ult * Pathology/Cytology Scan (11/15/2015) us Provider External PATHOLOGY/CYTOLOGY ORDERABLES Final Result * MRI Result Scan (07/25/2015) us Provider External IMG SCAN REPORTS Final Result * EEG Scan (07/24/2015) us Provider External NEUROLOGY ORDERABLES Final Res ult documented in this encounter Visit Diagnoses Not [...] documented as of this encounter Care Teams Ham Curer Relationship Specialty Start Date End Date Kassie Reyna MD [address] [address] PCP - General Internal Medicine 07/29/22 documented as of this encounter
--- OUTSIDE RECORDS SUMMARY | 2025-02-07 22:46 | XMS_ITS | Encounter Summary ---
Author Organization [facility] Address [address] [place] [address] Care Team Providers Care Pants Presser Automatic Name Role Phone Kassie Reyna MD Primary Care Provider [phone]- [phone] Encounter Details Date Type Department Care Team (Latest Contact Info) Description 10/04/2015 Transcribed Orders [facility] [address] [place] [address] Sancho Dowd MD [address] [place] [address] Pre-transplant evaluation for end stage renal disease (Primary Dx) Social History Tobacco Use Types [...] on file documented as of this encounter Results * EKG (10/04/2015 2:12 PM EDT) ECG - HEART RATE 63 bpm [facility] EKG QRS Interval 87 ms [facility] EKG QT Interval 423 ms [facility] EKG QTC Interval 434 ms [facility] EKG P [place] 73 deg [facility] EKG QRS [place] 31 deg [facility] EKG T Wave [place] 28 deg [facility] EKG P-R Interval 157 msec [facility] EKG Comment::Sinus rhythm::Elect ronically Signed On 10-05-2015 15:39:32 EDT by Horace Rajan MD 10/04/2015 2:12 PM EDT us Sancho Dowd MD ECG ORDERABLES Final Resul t [facility] EKG documented in this encounter Visit Diagnoses Diagnosis Pre-transplant evaluation for end stage renal disease- Primary Other specified pre-operative examination documented in this encounter Additional Health Concerns Infection [...] documented as of this encounter Care Teams Pants Presser Automatic Relationship Specialty Start Date End Date Kassie Reyna MD [facility] [address] [address] PCP - General Internal Medicine 07/29/22 documented as of this encounter
--- OUTSIDE RECORDS SUMMARY | 2025-02-07 22:46 | XMS_ITS | Encounter Summary ---
Author Organization [facility] [place], Address [address] [place] [address] Phone Care Team Providers Care Economics Faculty Member Name Role Phone Rashid Helton MD Primary Care Provider [phone] Reason for Visit * Reason Comments Med Refill Encounter Details Date Type Department Care Team (Late st Contact Info) Description 02/05/2022 Refill [facility] [address] [place] [phone] Waqar Wellington MD [address] [place] [address] [place] [phone] Social History Tobacco Use Types Packs/Day Years [...] on filedocumented in this encounter Care Teams Economics Faculty Member Relationship Specialty Start Date End Date Rashid Helton MD [facility] [address] [place] [address] PCP - General 06/12/20 documented as of this encounter
--- OUTSIDE RECORDS SUMMARY | 2025-02-07 22:46 | XMS_ITS | Clinical Summary ---
Author Organization [facility] Address [address] [place] [address] Phone Care Team Providers Care Sales Representative Jewelry Name Role Phone Rashid Helton MD Primary Care Provider Allergies Active Allergy Reactions Criticality Noted Date Comments Julius Inhibitors 05/01/2022 Amlodipine Itching,Rash Low 03/14/2018 Angiotensin Receptor Blockers 05/01/2022 Beta Adrenergic Blockers 05/01/2022 Cinacalcet Itching,Rash Medium 06/16/2020 Furosemide Rash Low 03/27/2020 And stomach pain Gabapentin Anaphylaxis,Itching ,Other (see comments) High 05/27/2019 PER PT Dizziness, itching, fatigue Hydralazine Itching,Nausea Low 02/22/2021 Patient reports prior reaction to hydralazine -> itchy throat and nausea requiring antiemetics. Ibuprofen Swelling Medium 06/16/2020 Cephalexin 05/01/2022 Latex Itching,Rash Medium 06/26/2020 Lisinopril Swelling High 06/16/2020 PER PT eye swelling Losartan Itching,Swelling Medium 10/25/2020 Metoprolol Rash Low 05/27/2019 Methoxy Polyethylene Glycol-Epoetin Beta Itching,Rash Medium 06/16/2020 PER PT Morphine Other (see comments) 06/16/2020 Pt denies, pt has had morphine at the hospital several times Penicillins Rash,Other (see comments) Low 06/16/2020 Prednisone Other (see comments),Rash Medium 10/04/2015 Swelling x 1 episodes. She has taken prednisone at other times without a problem Tramadol Itching,Swelling,Ra sh Low 06/16/2020 PER PT Medications NIFEdipine CC (ADALAT CC) 60 MG 24 hr tablet Take 1 tablet by mouth 1 (one) time each day Active calcitriol (ROCALTROL) 0.25 MCG capsule 0 Active levETIRAcetam (KEPPRA) 500 MG tablet Take 1 tablet by mouth 1 (one) time each day Active losartan (COZAAR) 50 MG tablet 0 Active carvedilol (COREG) 25 MG tablet Take 6.25 mg by mouth in the morning and 6.25 mg in the evening. Active furosemide (LASIX) 40 MG tablet Take 80 mg by mouth 1 (one) time each day Active Multiple Vitamins-Minera ls (MULTIVITAMIN ADULT PO) Take 1 capsule by mouth 7 Active Multiple Vitamins-Minera ls (RenaPlex-D) tablet Take 1 tablet by mouth 9 Active amitriptyline (ELAVIL) 25 MG tablet 25 mg 0 Active azithromycin (ZITHROMAX) 250 MG tablet 0 Active calcium carbonate (TUMS) 500 MG chewable tablet Chew 2 tablets at bed time 7 Active cholecalciferol (VITAMIN D-3) 1.25 MG (32393 UT) capsule Take 50,000 Units by mouth 7 Active clindamycin (CLEOCIN) 150 MG capsule Take 150 mg by mouth Active Clobetasol Prop Emollient Base 0.05 % emollient cream Apply a small amount to both feet daily until area clears or up to 15 days as needed 9 Active cyclobenzaprine (FLEXERIL) 10 MG tablet Take 10 mg by mouth 0 Active hydrALAZINE (APRESOLINE) 100 MG tablet 25 mg in the morning and 25 mg in the evening and 25 mg before bedtime. 0 Active hydrALAZINE (APRESOLINE) 25 MG tablet Take 25 mg by mouth 9 Active isosorbide dinitrate (ISORDIL) 40 MG tablet Take 40 mg by mouth 0 Active labetalol (NORMODYNE) 200 MG tablet Take 200 mg by mouth 0 Active labetalol (NORMODYNE) 300 MG tablet TAKE 2 TABLETS (900 MG TOTAL) BY MOUTH EVERY MORNING & EVERY EVENING. 9 Active metoprolol succinate XL (TOPROL-XL) 50 MG 24 hr tablet Take 50 mg by mouth 6 Active metoprolol succinate XL (TOPROL-XL) 25 MG 24 hr tablet Take by mouth Active oxyCODONE (ROXICODONE) 15 MG immediate release tablet Take 15 mg by mouth Active oxyCODONE (ROXICODONE) 5 MG immediate release tablet Take 10 mg by mouth every 4 (four) hours if needed 8 Active oxyCODONE-aceta minophen (PERCOCET) 5-325 MG per tablet Take 1 tablet by mouth 6 Active traMADol (ULTRAM) 50 MG tablet Take 50 mg by mouth 6 Active traZODone (DESYREL) 50 MG tablet Take 50 mg by mouth at bed time 8 Active levETIRAcetam (KEPPRA) 250 MG tablet TAKE 1 TABLET BY MOUTH ONCE DAILY ON DAYS OF DIALYSIS ONLY 6 Active NIFEdipine XL (PROCARDIA XL) 90 MG 24 hr tablet Take 90 mg by mouth 8 Active NIFEdipine (PROCARDIA) 10 MG capsule Take 10 mg by mouth Active albuterol HFA (PROVENTIL HFA;VENTOLIN HFA) 108 (90 Base) MCG/ACT inhaler Inhale 2 puffs every 4 (four) hours if needed for wheezing Active Ferric Citrate (Auryxia) 1 GM 210 MG(Fe) tablet Take 2 tablets by mouth 3 (three) times a day before meals Active cloNIDine 0.3 MG/24HR patch weekly Place on the skin Active cloNIDine (CATAPRES) 0.1 MG tablet Take 0.1 mg by mouth in the morning and 0.1 mg at noon and 0.1 mg in the evening. Active doxazosin (CARDURA) 2 MG tablet Take 2 mg by mouth every night Active ergocalciferol 1.25 MG (32585 UT) capsule Take 50,000 Units by mouth 1 (one) time per week Active fluticasone HFA (FLOVENT HFA) 110 MCG/ACT inhaler Inhale 1 puff 1 (one) time each day Rinse mouth with water after use to reduce aftertaste and incidence of candidiasis. Do not swallow. Active torsemide (DEMADEX) 10 MG tablet Take 40 mg by mouth in the morning and 40 mg in the evening. Active cloNIDine (CATAPRES) 0.2 MG tablet 2 Active Breo Ellipta 200-25 MCG/ACT aerosol powder 2 Active Calcium Acetate, Phos Binder, 667 MG capsule 3 Active hydrALAZINE 50 MG tablet 3 Active Active Problems Problem Noted Date Diagnosed Date Obese class I 05/01/2022 Pericardial effusion 01/04/2022 Backache 06/26/2020 Pain in joint 06/26/2020 History of parathyroidectomy 05/02/2020 Precordial pain 11/11/2019 Hypertensive renal disease 04/02/2019 Benign essential hypertension in obstetric keshia xt 09/15/2018 Myofascial pain syndrome 03/26/2018 Dialysis finding 03/20/2018 Overview (06/27/2020): Currently on dialysis three times weekly Hyperparathyroidism 10/30/2017 Acute pulmonary edema 10/30/2017 Aspiration pneumonitis 10/30/2017 Asthma 10/30/2017 Iron deficiency 10/30/2017 Hypertensive end stage renal disease 06/23/2017 Overview (06/27/2020): bx proven Chronic low back pain 12/10/2016 Superficial gastritis 10/30/2016 End stage renal failure on dialysis 10/03/2015 Overview (05/30/2022): 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 Anxiety state 04/23/2006 Encounters Date Type Department Care Team Description 02/03/2025 Documentation Only [facility] [place], [address] [place] [address] Malick Arechiga DO 01/15/2025 Treatment [facility], [address] [place] [address] Malick Arechiga DO End stage renal disease; Dependence on renal dialysis 01/15/2025 Orders Only [facility] [address] [address] Malick Arechiga, 01/12/2025 Documentation Only [facility] [address] [place] [address] Malick Arechiga, 01/12/2025 Documentation Only [facility] [address] [place] [address] Malick Arechiga, 01/06/2025 Telephone [facility] [address] [place] [phone] [address] [place] 12/14/2024 Treatment [facility], [address] [place] [address] Malick Arechiga DO End stage renal disease; Dependence on renal dialysis 12/11/2024 Orders Only [facility] [address] [address] Malick Arechiga, 12/07/2024 Orders Only [facility] [address] [address] Malick Arechiga, from Last 3 Months Immunizations Immunization Administration Dates Next Due HPV, Unspecified 03/04/2019 Hep B, Adolescent or Pediatric 06/24/2000 Hepatitis B 06/24/2000 Influenza (IM) Preservative Free 04/09/2016,1208/2014 Influenza Split 04/09/2016 Influenza Split Preservative Free ID 04/09/2016 Influenza, Unspecified 04/03/2021,05/02/2016 PPD Test 08/24/2015 Pneumococcal Conjugate 13-Valent 03/04/2019 Pneumococcal Polysaccharide 10/18/2017, 6,05/05/2015 Tdap 03/04/2019,12/03/2012 Family History Medical History Relation Comments Diabetes Mother Hypertension Mother Relation Status Comments Father Alive Mother Alive Social History Tobacco Use Types Packs/Day Years Used Date Smoking Tobacco: Never Tobacco Cessation:Counseling Given: Not Answered Alcohol Use Standard Drinks/Week Comments No 0 (1 standard drink = 0.6 oz pure alcohol) Alcoholic Drinks/day: Occasional social drink Comments Unknown Sex and Gender Information Value Date Recorded Sex Assigned at Not on file Legal Sex Female 4:35 PM EST Gender Identity Not on file Sexual Orientation Not on file Last Filed Vital Signs Vital Sign Reading Time Taken Comments Blood Pressure 160/80 01/23/2022 11:49 AM EDT Pulse 85 01/23/2022 11:49 AM EDT Temperature 36.7 C (98.1 F) 01/23/2022 11:49 AM EDT Respiratory Rate 16 06/28/2020 12:29 PM EST Oxygen Saturation 96% 06/28/2020 12:29 PM EST Inhaled Oxygen Concentration - - Weight 64 kg (141 lb 1.5 oz) 06/28/2020 12:29 PM EST Height 165.1 cm (5' 5 ) 06/28/2020 12:29 PM EST Body Mass Index 23.48 06/28/2020 12:29 PM EST Plan of Treatment Health Maintenance Due Date Last Done Comments Hepatitis B Vaccine (2 of 5 - Risk Dialysis 4-dose series) 07/22/2000 06/24/2000, 06/24/2000 Influenza Vaccine (#1) 2025 , 04/03/2021, 05/02/2016, Additional history exists Pneumococcal Vaccine: Peds ( 0 to 5 Years) and At-Risk Patients (6 to 49 Years) (4 of 4 - PCV20 or PCV21) 2036 03/04/2019, 10/18/2017, 06/06/2015, Additional history exists Pneumococcal Vaccine: 50+ Years Discontinued 03/04/2019, 10/18/2017, 06/06/2015, Additional history exists Procedures Procedure Name Priority Date/Time Associated Diagnosis Comments HEMATOLOGY Routine 01/15/2025 HEMATOLOGY Routine 12/11/2024 [facility] RESULTS Routine 12/07/2024 IMMUNO CHEMISTRY Routine 12/07/2024 HD KINETICS Routine 12/07/2024 CHEMISTRY Routine 12/07/2024 POST CHEMISTRY Routine 12/07/2024 HEMATOLOGY Routine 12/07/2024 CHEMISTRY Routine 12/07/2024 from Last 3 Months Results * (ABNORMAL) HEMATOLOGY (01/15/2025) Only the most recent of3 resultswithin the time period is included. Hemoglobin 7.5(L) 12.0 - 16.0 g/dL [facility] Hemoglobin x 3 22.5(L) 36.0 - 48.0 % [facility] 01/15/2025 01/18/2025 8:4 8 AM EDT Narrative [facility] - 01/18/2025 Unless otherwise specified, test(s) performed at: [facility], [address] [place] [id number] MAGISTERIAL DISTRICT JUDGE: Magdy Howard M.D. For any questions, please call customer service at FREQUENCY:OTHER Resulting Agency Comment Specimen source: Blood Malick Arechiga DO LAB BLOOD ORDERABLES Final Resu lt [facility] See order comments or contact performing lab [facility], [place] * (ABNORMAL) HD KINETICS (12/07/2024) % Urea Reduction 94(H) 65 - 80 % [facility] 12/07/2024 12/08/2024 11: 37 AM EDT Narrative [facility] - 12/08/2024 Unless otherwise specified, test(s) performed at: [facility], [address] [place] [address] MAGISTERIAL DISTRICT JUDGE: Magdy Howard M.D. For any questions, please call customer service at FREQUENCY:MONTHLY Resulting Agency Comment Specimen source: Plasma [employer] LAB BLOOD ORDERABLES Final Resu Performing Organization Address [facility] [facility] de Phone Number [facility] See order comments or contact performing lab Unknown, [place] * POST CHEMISTRY (12/07/2024) BUN Post Dialysis 6 6 - 19 mg/dL [facility] 12/07/2024 12/08/2024 11: 37 AM EDT Narrative [facility] - 12/08/2024 Unless otherwise specified, test(s) performed at: [facility] [address] MAGISTERIAL DISTRICT JUDGE: Magdy Howard M.D. For any questions, please call customer service at FREQUENCY:MONTHLY Resulting Agency Comment Specimen source: Plasma [employer] LAB BLOOD ORDERABLES Final Resu Performing Organization Address [facility] de Phone Number [facility] See order comments or contact performing lab Unknown, [place] * IMMUNO CHEMISTRY (12/07/2024) Pathologist [facility] Hep B Surface Ag Negative Negative [facility] 12/07/2024 12/08/2024 9:2 6 AM EDT Narrative [facility] - 12/08/2024 Unless otherwise specified, test(s) performed at: [facility], [address] [place] [address] MAGISTERIAL DISTRICT JUDGE: Magdy Howard M.D. For any questions, please call customer service at FREQUENCY:MONTHLY Resulting Agency Comment Specimen source: Serum [employer] LAB BLOOD ORDERABLES Final Resu Performing Organization Address [facility] de Phone Number [facility] See order comments or contact performing lab Unknown, [place] * (ABNORMAL) [facility] Chemistry (12/07/2024) Only the most recent of2 resultswithin the time period is included. BUN 98(H) 6 - 19 mg/dL [facility] Creatinine 11.30(H) 0.60 - 1.30 mg/dL [facility] BUN/Creatinine Ratio 8.7(L) 10.0 - 20.0 [facility] Sodium 136 136 - 145 mEq/L [facility] Chloride 98 96 - 108 mEq/L [facility] Bicarbonate (CO2) 22 22 - 29 mEq/L [facility] Calcium 7.4(L) 8.4 - 10.2 mg/dL [facility] Corrected Calcium 7.2(L) 8.4 - 10.2 mg/dL [facility] Comment: Corrected Calcium is not equivalent to measured Ionized Calcium. Phosphorus 9.1(H) 2.6 - 4.5 mg/dL [facility] Calcium Phosphorus Product 67(H) 0 - 54 [facility] Calcium Phosporus Product, Cor 66(H) 0 - 54 [facility] ALT (SGPT) 36 7 - 52 U/L [facility] Albumin 4.3 3.5 - 5.2 g/dL [facility] Magnesium 2.5 1.6 - 2.6 mg/dL [facility] Iron 108 30 - 160 mcg/dL [facility] UIBC 123(L) 155 - 355 mcg/dL [facility] TIBC 231 185 - 515 mcg/dL [facility] Iron Saturation (TSat) 47 20 - 55 % [facility] Potassium 7.0(H) 3.5 - 5.1 mEq/L [facility] Comment: Verified by repeat analysis. Ferritin 1,193(H) 10 - 291 ng/mL [facility] 12/07/2024 12/08/2024 9:2 6 AM EDT Narrative [facility] - 12/08/2024 Unless otherwise specified, test(s) performed at: [facility], [address] [place] [address] MAGISTERIAL DISTRICT JUDGE: Magdy Howard M.D. For any questions, please call customer service at FREQUENCY:MONTHLY Resulting Agency Comment Specimen source: Serum us Malick Arechiga DO LAB BLOOD ORDERABLES Edited Res ult - Final [facility] See order comments or contact performing lab Unknown, [place] * [facility] Results (12/07/2024) eNPCR 1.79 Knowledge Center WSTDKT/V 2.0 Knowledge Center eKt/V ([place]) 3.01 Knowledge Center nPCR_HD 1.82 Knowledge Center spKt/V [facility] sp[facility]t/V (Daugirdas II) 3.57 Knowledge Center eKdrt/V 3.17 Knowledge Center eKt/V Gotch 3.17 Knowledg e Center PCR 90.67 [facility] Center 12/07/2024 12/07/2024 Haydee Ordering Provider LAB BLOOD ORDERABLES Final Result [facility] Contact Performing lab Unknown, [place] from Last 3 Months Insurance Medicare Medicaid [place] Care Teams Sales Representative Jewelry Relationship Specialty Start Date End Date Rashid Helton MD [facility] [address] [address] PCP - General 06/12/20
--- OUTSIDE RECORDS SUMMARY | 2025-02-07 22:46 | XMS_ITS | Encounter Summary ---
Author Organization [facility] Address [address] [place] [address] Care Team Providers Care Manager Council Name Role Phone Kassie Reyna MD Primary Care Provider +[phone]- [phone] Encounter Details Date Type Department Care Team (Late st Contact Info) Description 07/08/2022 Abstract [facility] [address] [facility] [address] [place] [address] Soni Escalante, [facility] Social History Tobacco Use Types Packs/Day Years Used Date Smoking Tobacco: Never Alcohol Use Standard Drinks/Week Comments No 0 (1 standard drink = 0.6 oz pur e alcohol) PHQ-2 Answer Date Recorded PHQ-2 Total Score 0 06/27/2022 Housing Stability Answer Date Recorded Housing Stability I have a steady place to live 06/27/2022 Comments No Sex and Gender Information Value [...] suspected to have Coronavirus/COVID-19? No / Unsure 06/25/2022 11:51 PM EST documented as of this encounter [...] documented as of this encounter Care Teams Manager Council Relationship Specialty Start Date End Date Kassie Reyna MD [address] [address] PCP - General Internal Medicine 07/29/22 documented as of this encounter
--- OUTSIDE RECORDS SUMMARY | 2025-02-07 22:46 | XMS_ITS | Encounter Summary ---
Author Organization [facility] and [facility] Address [address] [place] [address] Care Team Providers Care Agricultural Engineering Technicians Name Role Phone Kassie Reyna MD Primary Care Provider +1- [phone] Encounter Details Date Type Department Care Team (Late st Contact Info) Description 08/21/2017 Abstract [facility] [address] [facility] [address] [facility] [address] [place] [address] Cinthia Jaramillo RN Social History Tobacco Use Types Packs/Day Years [...] documented as of this encounter Care Teams Agricultural Engineering Technicians Relationship Specialty Start Date End Date Kassie Reyna MD [address] [address] PCP - General Internal Medicine 07/29/22 documented as of this encounter
--- OUTSIDE RECORDS SUMMARY | 2025-02-07 22:46 | XMS_ITS | Encounter Summary ---
Author Organization [facility] and [facility] Address [address] [place] [address] Care Team Providers Care Building Construction Engineer Name Role Phone Kassie Reyna MD Primary Care Provider +1- [phone] Reason for Visit * Reason Comments Kidney Transplant Evaluation Encounter Details Date Type Department Care Team (Late st Contact Info) Description 06/24/2022 Documentation [facility] [address] [facility] [address] [facility] 4th [place] [address] Linnea De León, MIKE Social History Tobacco Use [...] PM EST documented as of this encounter Progress Notes * Linnea De León RN - 06/24/2022 8:30 AM EST [facility] Kidney Transplant Program- Medical Review Board Transplant Nurse Coordinator Summary REFERRING PROVIDER: Jenifer Cavazos PRIMARY CARE PROVIDER: Jenifer Cavazos TRANSPLANT NURSE COORDINATOR: LINNEA DE LEÓN NAME: Flavio Morris , [id number] AGE: 36 y.o. GENDER: female ETHNICITY: [facility] [address] [address] Transplant Phase: Kidney Transplant Evaluation - 06/27/2021 Evaluation, Active: 06/27/2021 ABO: O Time on Dialysis: 2705 CPRA: HLA Class I Antibody, Percent Positive (ID) Date Value Ref Range Status 10/04/2015 96 Final HLA Class II Antibody, Percent Positive (ID) Date Value Ref Range Status 10/04/2015 0 Final HLA Class II Calculated Percent Reactive Antibody (CPRA) Date Value Ref Range Status 10/04/2015 0 Final WINDY: 0 Protocols: Kidney Dx: Primary: Focal Glomerular Sclerosis (Focal Segmental - FSG) Transplant Evaluation Team: Dietitian: Noa Luis Laminator Hand: Charley Villagomez Referring Physician: Jenifer Cavazos Coordinator: Jonh Osorio Transplant Surgeon: Isidoro Colon Biometrics Experimentalist: Cory Tellez Associate Coordinator: Katey Parr Patient Active Problem List Diagnosis SNOMED CT(R) ??? ESRD (end stage renal disease) on dialysis (HC Code) (HC CODE) (HC Code) END STAGE RENAL FAILURE ON DIALYSIS ??? Essential hypertension, benign BENIGN ESSENTIAL HYPERTENSION ??? Seizures (HC Code) (HC CODE) (HC Code) SEIZURE ??? [facility] BACTEREMIA DUE TO METHICILLIN RESISTANT STAPHYLOCOCCUS AUREUS ??? 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 Asthma ASTHMA ??? Hyperparathyroidism (HC Code) (HC CODE) (HC Code) HYPERPARATHYROIDISM ??? Acute pulmonary edema (HC Code) (HC CODE) (HC Code) ACUTE PULMONARY EDEMA ??? Aspiration pneumonitis (HC Code) (HC CODE) (HC Code) ASPIRATION PNEUMONITIS ??? Iron deficiency IRON DEFICIENCY ??? Benign essential hypertension in obstetric context BENIGN ESSENTIAL HYPERTENSION IN OBSTETRIC CONTEXT ??? Backache BACKACHE ??? Uremia UREMIA ??? History of delivery H/O: SECTION ??? History of seizure HISTORY OF CLINICAL FINDING IN SUBJECT ??? Hypertensive emergency HYPERTENSIVE EMERGENCY ??? Myofascial pain syndrome MYOFASCIAL PAIN SYNDROME ??? Anxiety state ANXIETY STATE ??? History of parathyroidectomy (HC Code) HISTORY OF PARATHYROIDECTOMY ??? AVF (arteriovenous fistula) (HC Code) ARTERIOVENOUS FISTULA ??? Chronic pain CHRONIC PAIN ??? Hypocalcemia HYPOCALCEMIA ??? Acute superficial gastritis with hemorrhage ACUTE HEMORRHAGIC GASTRITIS ??? Hyperkalemia HYPERKALEMIA ??? Pre-transplant evaluation for kidney transplant PATIENT ENCOUNTER STATUS ??? ESRD (end stage renal disease) (HC Code) (HC CODE) (HC Code) END-STAGE RENAL DISEASE ??? Acute renal failure, unspecified acute renal failure type (HC Code) (HC CODE) ACUTE RENAL FAILURE SYNDROME ??? End stage renal failure on dialysis (HC Code) (HC CODE) (HC Code) END STAGE RENAL FAILURE ON DIALYSIS ??? Need for acute hemodialysis (HC Code) (HC CODE) (HC Code) DEPENDENCE ON HEMODIALYSIS ??? Renal failure, unspecified chronicity RENAL FAILURE SYNDROME ??? Calf tenderness TENDERNESS IN LOWER LIMB ??? Class 1 obesity OBESE CLASS I ??? Dialysis patient (HC Code) (HC CODE) (HC Code) DIALYSIS FINDING ??? Fluid overload HYPERVOLEMIA ??? History of pneumonia H/O: PNEUMONIA ??? Hypertension secondary to other renal disorders RENAL HYPERTENSION ??? Hypertensive kidney disease with end-stage renal disease (HC Code) (HC CODE) (HC Code) HYPERTENSIVE END STAGE RENAL DISEASE ??? Hypertensive renal disease HYPERTENSIVE RENAL DISEASE ??? Missed MISSED MISCARRIAGE ??? Pain in joint JOINT PAIN ??? Pericardial effusion PERICARDIAL EFFUSION ??? Precordial pain PRECORDIAL PAIN ??? Superficial gastritis SUPERFICIAL GASTRITIS ??? Termination of (fetus) DUE TO TERMINATION OF REASON FOR PRESENTATION: Prior referral closed per patient 2016 eval. ??? MRB Discussion Only HIGHLIGHTS: Required testing: from one year ago eval ?? Pap Smear last 2016 Echocardiogram Updated ----> CT Abdomen/ Pelvis results - reviewed Patient calling on listing status. ?? Flavio Morris is a 36 y.o. female with ESRD secondary to Focal Glomerular Sclerosis (Focal Segmental - FSG). She was referred by Dr. Jenifer Cavazos for evaluation as of 02/01/2020 and completed initial evaluation at the [facility] on 06/27/2021. Has been on dialysis since 01/27/15. Evaluation highlights: CARDIAC: PA /Cardiac note on last admission, mention missed dialysis. On prn Oxy 10-15 mg q 4 prn Rx by PCP. Recommends formal consult cardiology. (nothning scheduled, NPC?) Cardiac Cath 04-06-19 scanned in, normal coronary arteries ECHO: 06-27-22 ~ * Moderately increased left ventricular cavity size. Severe concentric left ventricular hypertrophy. No regional wall motion abnormalities. Normal left ventricular systolic function. LVEF calculated by 3DE was 65%. Moderate diastolic dysfunction consistent with increase in filling pressure (grade2). ~ * Mildly increased right ventricular cavity size. Normal right ventricular systolic function. Estimated right ventricular systolic pressure is 53 mmHg. ~ * Left atrium is severely dilated. Right atrium is mildly dilated. ~ * Aortic sclerosis without stenosis. Peak aortic velocity is 1.9 m/s. LVOT velocity is 1.5 m/sec.Dimensionless index is 0.77. ~ * Mild mitral regurgitation. ~ * Moderate tricuspid regurgitation. Tricuspid regurgitation jet is eccentric directed toward the interatrial septum. ~ * IVC diameter < 2.1 cm that collapses < 50% with a sniff suggests mildly increased RAP (5-10 mmHg, mean 8 mmHg). ~ * Moderate circumferential pericardial effusion. Overall echocardiographic findings suggest no hemodynamic compromise. ~ * Compared with the prior study, dated 10/26/2020, there are changes noted. Left ventricular hypertrophy was previously mild. Tricuspid regurgitation has increased from mild. Pericardial effusion has increased from small. ~ * If no clinical explanation (such as chronic uncontrolled hypertension) for the degree of left ventricular hypertrophy, consider further work up for infiltrative or hypertrophic cardiomyopathy. 06-13-22 in [place] ?There is severe concentric hypertrophy. Left ventricular systolic function is normal. The quantitative EF by 2D Lares biplane is 58%. Left atrial filling pressure is elevated. (prior from 12-28-21 The quantitative EF is 47% by 3D imaging, and 50% by 2D Lares biplane). ?The right ventricle is mildly dilated. Right ventricular systolic?? function is normal. ?The left atrial cavity is moderately dilated. ?There is moderate tricuspid regurgitation. The estimated right ventricular systolic pressure is moderately elevated at 55 mmHg. ?There is a moderate circumferential pericardial effusion.There is no echocardiographic evidence of cardiac tamponade. ?Compared to previous study on 12/28/2021, there is no significant change. Prior ECHO 12-28-21 STRESS: CT A/P: CT of Pelvis reviewed (04/18/2020). Acceptable vascular targets for kidney transplant PAP: last 2015, needs updated MAMMO: CE REVIEW: Intercurrent events: ED 06-19-22, Patient missed 2 dialysis sessions, HTN 200s, swelling. Pt reports challenging life situations which prevents her for getting to dialysis. 06-11-22 Admit patient was found to be homebound and require intermittent skilled care by a SN, PT, ST or OT. 06-25-22 Admit with a discharge AMA on 06-29-22. Missed dialysis, chest pain, elevated trop. Chronic hypoxemic respiratory failure. Continue baseline supplemental O2 2.5 - 3.5L Multiple admits / ED for dialysis non compliance noted. Further outstanding testing at this time per protocol: INCOMPLETE KIDNEY EVALUATION TASKS Due Cardiology Clearance 2 Yr 07/27/2021 Pelvic Exam Pap Smear 1 (Auto) 3 Yr 07/27/2021 Cardiac Stress Test 1 Yr 08/17/2021 RN Chart Review 05/29/2022 Committee Review Presentation Neurology Clearance Electronically Signed by Linnea De León RN, June 24, 2022 8:30 AM P documented in this encounter Plan of Treatment Not on file documented as of this encounter Visit Diagnoses Not on filedocumented in this encounter Additional Health Concerns Infection Onset Date Last Indicated Resolved Time R/O Respiratory Virus 06/26/2022 06/26/20222022 2:22 AM [...] documented as of this encounter Care Teams Building Construction Engineer Relationship Specialty Start Date End Date Kassie Reyna MD [address] [address] PCP - General Internal Medicine 07/29/22 documented as of this encounter
--- OUTSIDE RECORDS SUMMARY | 2025-02-07 22:46 | XMS_ITS | Encounter Summary ---
Author Organization [facility] and [facility] Address [address] [place] [address] Care Team Providers Care Kinesiologist Name Role Phone Kassie Reyna MD Primary Care Provider +1- [phone] Encounter Details Date Type Department Care Team (Late st Contact Info) Description 05/06/2016 Scanned Document [facility] [address] [facility] [address] [facility] [address] [place] [address] External, Provider Social History Tobacco Use Types [...] documented as of this encounter Care Teams Kinesiologist Relationship Specialty Start Date End Date Kassie Reyna MD [address] [address] PCP - General Internal Medicine 07/29/22 documented as of this encounter
--- OUTSIDE RECORDS SUMMARY | 2025-02-07 22:46 | XMS_ITS | Encounter Summary ---
Author Organization [facility] and [facility] Address [address] [place] [address] Care Team Providers Care Barge Pilot Name Role Phone Kassie Reyna MD Primary Care Provider +1- [phone] Encounter Details Date Type Department Care Team (Late st Contact Info) Description 08/22/2015 Scanned Document [facility] at [address] [facility] [address] [facility] 4th [place] [address] Benjamin Morel [address] [place], [place] [address] Social History Tobacco Use Types Packs/Day Years [...] 4:4 1 PM EST R/O RSV 07/22/2024 07/22/202407/2207/22/2024 4:41 PM EST R/O Respiratory Virus 07/22/2024 07/22/20242024 4:41 PM EST R/O COVID-19 07/22/2024 07/22/2024 07/22/2024 4:41 PM EST Influenza A 07/22/2024 07/22/2024 08/02/2024 1:13 PM EST documented as of this encounter Care Teams Barge Pilot Relationship Specialty Start Date End Date Kassie Reyna MD [address] [address] PCP - General Internal Medicine 07/29/22 documented as of this encounter
--- OUTSIDE RECORDS SUMMARY | 2025-02-07 22:46 | XMS_ITS | Patient Health Record ---
Author Organization [facility] Address [address] [place] [address] [address] [place], [place] [id number] Support Name Relationship Address Phone HIMA OROZCO Guarantor Unknown Reason For Referral No Information Plan Of Treatment No Information
--- OUTSIDE RECORDS SUMMARY | 2025-02-07 22:46 | XMS_ITS | Encounter Summary ---
Author Organization [facility] and [facility] Address [address] [place] [address] Care Team Providers Care Fraternity House Cook Name Role Phone Kassie Reyna MD Primary Care Provider +1- [phone] Encounter Details Date Type Department Care Team (Late st Contact Info) Description 10/04/2015 Scanned Document [facility] [address] [facility] [address] [facility] 4th [place] [address] Benjamin Morel [address] [place], [place] [address] Social History Tobacco Use Types Packs/Day Years [...] AM EDT R/O COVID-19 02/26/2021 02/26/2021 02/26/2021 6:5 2 AM EDT R/O COVID-19 03/01/2021 03/01/2021 03/01/2021 [...] documented as of this encounter Care Teams Fraternity House Cook Relationship Specialty Start Date End Date Kassie Reyna MD [address] [address] PCP - General Internal Medicine 07/29/22 documented as of this encounter
--- OUTSIDE RECORDS SUMMARY | 2025-02-07 22:46 | XMS_ITS | Encounter Summary ---
Author Organization [facility] and [facility] Address [address] [place] [address] Care Team Providers Care Business Objects Name Role Phone Kassie Reyna MD Primary Care Provider +1- [phone] Encounter Details Date Type Department Care Team (Late st Contact Info) Description 04/09/2016 Scanned Document [facility] at [address] [facility] 800 [facility] [address] [place] [address] External, Provider Social History Tobacco Use Types [...] documented as of this encounter Care Teams Business Objects Relationship Specialty Start Date End Date Kassie Reyna MD [address] [address] PCP - General Internal Medicine 07/29/22 documented as of this encounter
--- OUTSIDE RECORDS SUMMARY | 2025-02-07 22:46 | XMS_ITS | Clinical Summary ---
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 Name Role Phone Kassie Reyna MD Primary Care Provider + Allergies Active Allergy Reactions Criticality Noted Date Comments Julius Inhibitors Unknown 11/02/2024 Spironolactone Itching,Rash Low 11/02/2024 Amlodipine Unknown 11/02/2024 Beta-Blockers (Beta-Adrenergic Blocking Agts) Unknown 11/02/2024 Clonidine Anaphylaxis High 11/02/2024 Doxazosin Throat Tightness Medium 11/02/2024 Epoetin Beta, Methoxy Peg Shortness Of B reath,Fixed Drug Eruption High 11/02/2024 Furosemide Fixed Drug Eruption 11/02/2024 Gabapentin Anaphylaxis High 11/02/2024 Heparin Analogues Unknown 11/02/2024 Hydralazine Unknown 11/02/2024 Hydroxyzine Hcl Unknown 11/02/2024 Isosorbide Dinitrate Unknown 11/02/2024 Labetalol Itching 11/02/2024 Latex Itching,Fixed Drug Eruption 11/02/2024 Levofloxacin Itching 11/02/2024 Lisinopril Throat Tightness Medium 11/02/2024 Losartan Unknown 11/02/2024 Methocarbamol Unknown 11/02/2024 Ibuprofen Unknown 11/02/2024 Penicillins Unknown 11/01/2024 Prednisone Fixed Drug Eruption 11/02/2024 Epoetin Mo-Epbx Unknown 11/02/2024 Cinacalcet Unknown 11/02/2024 Tramadol Throat Tightness Medium 11/02/2024 Medications carvedilol (COREG) 12.5 MG tablet Take 50 mg by mouth 2 (two) times a day with meals. Active ferric citrate (AURYXIA) 210 mg iron tablet Take 420 mg by mouth 3 (three) times a day with meals. Take 1 tablet with snack. 5 Active levETIRAcetam (KEPPRA) 500 MG tablet Take 500 mg by mouth. 4 Active pantoprazole (PROTONIX) 40 MG tablet Take 40 mg by mouth daily. 4 Active senna (SENOKOT) 8.6 mg tablet Take 8.6 mg by mouth 2 (two) times a day. 5 Active aspirin 81 mg chewable tablet Take 81 mg by mouth daily. Active levETIRAcetam (KEPPRA) 250 MG IMMEDIATE release tablet Take 1 tablet (250 mg total) by mouth 3 (three) times a week. Please take it on Friday, , and Friday. 5 Active NIFEdipine (PROCARDIA XL) 30 MG 24 hr tablet Take 1 tablet (30 mg total) by mouth daily before breakfast. 5 Active NIFEdipine (PROCARDIA XL) 60 MG 24 hr tablet Take 1 tablet (60 mg total) by mouth every evening. 5 Active oxyCODONE 15 MG immediate release tablet Take 1 tablet (15 mg total) by mouth every 4 (four) hours as needed for pain (specific location in comments) (left arm pain). 84 tablet 5 Active calcitriol (ROCALTROL) 0.25 MCG capsule Take 1 capsule (0.25 mcg total) by mouth daily. 30 capsule 5 Active sevelamer carbonate (RENVELA) 800 mg tablet Take 2 tablets (1,600 mg total) by mouth 3 (three) times a day with meals. 180 tablet 5 Active sodium zirconium cyclosilicate (LOKELMA) 10 gram Take 1 packet (10 g total) by mouth 3 (three) times a week on Friday, Friday, Friday. 12 packet 5 Active sildenafiL (REVATIO) 20 mg tabletIndications: Pulmonary hypertension Take 1 tablet (20 mg total) by mouth 3 (three) times a day. 90 tablet 11 5 Active Active Problems Problem Noted Date Diagnosed Date Nasal mass 11/03/2024 Assessment & Plan (11/03/2024 3:48 PM EDT): CT Neck this admission showed well-circumscribed enhancing mass at the base of the left naris scalloping the left maxilla. ? Possible vascular malformation. Patient had reported intermittent epistaxis worsened while on anticoagulation. She has seen at [facility] in July 2024 by ENT for management of right epistaxis. Scope at that time revealed no evidence of mass/lesions in right nasal cavity. ENT consulted this admission for evaluation.Repeat scope revealed a well- circumscribed, white compressible mass extending from left nasal sill to inferior turbinate head. 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 Reassuringly does not appear to be acutely inflamed or infected based on exam/labs. Apprec Renal eval; awaiting US & CTA. HD likely via TDC while we await fistual eval. - HD Schedule: TTSat - Vasc access: LUE AVF & LIJ TDC; - Fistulogram showing left brachiocephalic fistula is widely patent, fistula is high flow and they recommended right side cardiac cath to rule ou thigh output heat failure, also recommended surgical evaluation for fistula revision and banding. - cardiology consulted on 11/02 appreciate recommendations - TTE now with evidence of severe TR, pulmonary hypertension - Right heart cath on 11/03: demonstrating severe pulmonary hypertension - renal to discuss with surgery - EDW 63kg per prior chart documentation - Anemia: - JOANNE: per Renal - Iron supplementation: F/up iron panel - F/up B12/Folate - MBD: - Lab Results Component Value Date ALB 4.2 11/02/2024 CA 7.6 (L) 11/03/2024 IC 0.97 (L) 11/02/2024 PHOS 4.9 (H) 11/02/2024 PTH 43 11/02/2024 VITDT 24 11/02/2024 - Trend Ca, Phos - Phos binders: Home ferric citrate nonformulary; Revela 1600 TIDAC - PTH-lowering therapy: F/up PTH - Prev ordered for calcitriol; pt reports self discontinuation. Will trend iCa and consider restarting prn. - Nephrocaps; low K/phos/Na diet Assessment & Plan (11/02/2024 3:11 PM EDT): #Hyperkalemia #Hypocalcemia #Hyperphosphatemia C/f fistula access problem; has had recent revision. Reassuringly does not appear to be acutely inflamed or infected based on exam/labs. Apprec Renal eval; awaiting US & CTA. HD likely via TDC while we await fistual eval. - HD Schedule: TTSat - Vasc access: LUE AVF & LIJ TDC; - Fistulogram showing left brachiocephalic fistula is widely patent, fistula is high flow and they recommended right side cardiac cath to rule ou thigh output heat failure, also recommended surgical evaluation for fistula revision and banding. - renal to discuss with surgery - cardiology consulted on 11/02 for consideration of right heart cath - ordered TTE - EDW 63kg per prior chart documentation - Anemia: - JOANNE: per Renal - Iron supplementation: F/up iron panel - F/up B12/Folate - MBD: - Lab Results Component Value Date ALB 4.2 11/02/2024 CA 7.5 (L) 11/02/2024 IC 0.97 (L) 11/02/2024 PHOS 4.9 (H) 11/02/2024 PTH 43 11/02/2024 VITDT 24 11/02/2024 - Trend Ca, Phos - Phos binders: Home ferric citrate nonformulary; Revela 1600 TIDAC - PTH-lowering therapy: F/up PTH - Prev ordered for calcitriol; pt reports self discontinuation. Will trend iCa and consider restarting prn. - Nephrocaps; low K/phos/Na diet Assessment & Plan (11/01/2024 3:46 PM EDT): #Hyperkalemia #Hypocalcemia #Hyperphosphatemia C/f fistula access problem; has had recent revision. Reassuringly does not appear to be acutely inflamed or infected based on exam/labs. Apprec Renal eval; awaiting US & CTA. HD likely via TDC while we await fistual eval. - HD Schedule: TTSat - Vasc access: LUE AVF (fistula eval pending) & LIJ TDC; f/up CTA Chest & Neck and LUE Doppler US - EDW 63kg per prior chart documentation - Anemia: - JOANNE: per Renal - Iron supplementation: F/up iron panel - F/up B12/Folate - MBD: - Lab Results Component Value Date CA 7.3 (L) 11/01/2024 IC 0.96 (L) 11/01/2024 PHOS 5.8 (H) 11/01/2024 - Trend Ca, Phos - Phos binders: Home ferric citrate nonformulary; Revela 1600 TIDAC - PTH-lowering therapy: F/up PTH - Prev ordered for calcitriol; pt reports self discontinuation. Will trend iCa and consider restarting prn. - Nephrocaps; low K/phos/Na diet Hypocalcemia 11/01/2024 Elevated troponin 11/01/2024 Assessment & Plan (11/03/2024 3:48 PM EDT): Troponin 138 -> 129; no chest pressure or exertional dyspnea. Does have R-sided chest discomfort which pt attributes to LIJ TDC and chronic pain from LUE AVF which is s/p multiple revisions. ECG w/ non-specific STTWA. Most c/w type II NSTEMI d/t asymptomatic severe hypertension w/o e/o end-organ damage. - Monitor for interval change; repeat trop/EKG if clinically worsening and c/f ACS Assessment & Plan (11/02/2024 12:43 PM EDT): Troponin 138 -> 129; no chest pressure or exertional dyspnea. Does have R-sided chest discomfort which pt attributes to LIJ TDC and chronic pain from LUE AVF which is s/p multiple revisions. ECG w/ non-specific STTWA. Most c/w type II NSTEMI d/t asymptomatic severe hypertension w/o e/o end-organ damage. - Monitor for interval change; repeat trop/EKG if clinically worsening and c/f ACS Assessment & Plan (11/01/2024 3:46 PM EDT): Troponin 138 -> 129; no chest pressure or exertional dyspnea. Does have R-sided chest discomfort which pt attributes to LIJ TDC and chronic pain from LUE AVF which is s/p multiple revisions. ECG w/ non-specific STTWA. Most c/w type II NSTEMI d/t asymptomatic severe hypertension w/o e/o end-organ damage. - Monitor for interval change; repeat trop/EKG if clinically worsening and c/f ACS Known medical problems 11/01/2024 Assessment & Plan (11/03/2024 5:28 PM EDT): #Chronic pain - continue Tylenol MARGY - continue home Oxycodone 15mg PO Q4H PRN - continue IV dilaudid for breakthrough pain with oxycodone, will wean as able #HTN - Continue home Coreg 50mg BID - continue home Nifedepine 90mg QD #Seizure d/o - Continue home Keppra 500mg QD - continue home Keppra 250mg T/Th/Sat (on HD days) #GERD - Home Prilosec nonformulary; converted to Omeprazole Assessment & Plan (11/02/2024 3:11 PM EDT): #Chronic pain - Tylenol MARGY - C/h Oxycodone 15mg PO Q4H PRN - continue IV dilaudid for breakthrough pain with oxycodone, will wean as able #HTN - C/h Coreg 50mg BID - C/h Nifedepine 90mg QD #Seizure d/o - C/h Keppra 500mg QD - C/h Keppra 250mg T/Th/Sat (on HD days) #GERD - Home Prilosec nonformulary; converted to Omeprazole Assessment & Plan (11/01/2024 3:46 PM EDT): #Chronic pain - Tylenol MARGY - C/h Oxycodone 15mg PO Q4H PRN - Spot dose opioids prn if refractory to home regimen #HTN - C/h Coreg 50mg BID - C/h Nifedepine 90mg QD #Seizure d/o - C/h Keppra 500mg QD - C/h Keppra 250mg T//Fri (on HD days) #GERD - Home Prilosec nonformulary; converted to Omeprazole Encounters Date Type Department Care Team Description 02/02/2025 Telephone [facility] Pulmonary Hypertension Clinic [address] [facility] Floor, [address] [place] [phone] Lita Nava RN 01/21/2025 Telephone [facility] Pul[facility]pertension Clinic [address], [address] [place] [phone] Luz Martinez RN 01/18/2025 Telephone [facility] Pul[facility] Hypertension Clinic [address] [facility] Floor, [address] [place] [address] Luz Martinez RN 01/10/2025 Telephone [facility] Pul[facility] Hypertension Clinic [address] [facility] Floor, [address] [place] [address] Luz Martinez RN 12/29/2024 Orders Only [facility] application development specialist [address] [facility], 2nd Floor, [address] [place] [address] Marily Sawant Disorder of jaw (Primary Dx) 12/23/2024 Telephone [facility] application development specialist [address] [facility], 2nd Floor, [address] [place] [address] Malick Bowles MD, DDS Appointment 12/21/2024 Refill [facility] Pul[facility] Hypertension Clinic [address] [facility] Floor, [address] [place] [address] Luz Martinez, map plotter Refill 11/27/2024 Procedure Pass [facility] Imaging - RF/IR [address] [place] [address] 11/22/2024 Refill [facility] Pul[facility] Hypertension Clinic [address] [facility], 2nd Floor, [address] [place] [address] Luz Martinez, map plotter Refill 11/19/2024 12:34 PM EDT Anesthesia Event [facility] PERIOPERATIVE DEPT [address] [place] [address] Leonel Phan Emily, CRNA 11/19/2024 11:45 AM EDT Ancillary Procedure [facility] Imaging Bedside Ultrasound VRT [address] [place] [address] Leonel Phan 11/19/2024 11:09 AM EDT - 11/19/2024 1:24 PM EDT Surgery [facility] PERIOPERATIVE DEPT [address] [place] [address] Abebe De La Fuente MD, PhD ARTERIOVENOUS FISTULA BANDING 11/19/2024 Procedure Pass [facility] PERIOPERATIVE DEPT [address] [place] [address] 11/16/2024 Procedure Pass [facility] Cardiac US [address] [place] [address] 11/16/2024 Procedure Pass [facility] CT, Mook 2 [address] [facility], 2nd Floor, [address] [place] [address] 11/16/2024 Procedure Pass [facility] CT, Mook 2 [address] [facility], 2nd Floor, [address] [place] [address] 11/15/2024 2:05 PM EDT - 11/15/2024 3:10 PM EDT Surgery [facility] Cardiac Boilermaker Fitter [address] [facility], Floor 9, [address] [place] [address] Trent Roche MD Right Heart Catheterization with O2 Sat Run 11/15/2024 Procedure Pass [facility] Cardiac Boilermaker Fitter [address] [facility], Floor 9, [address] [place] [address] 11/12/2024 Orders Only [facility] DIALYSIS VIRTUAL DEPARTMENT [address] [place] [address] Jed Dickey RN 11/11/2024 Procedure Pass [facility] Cardiac US [address] [place] [address] 11/11/2024 Orders Only [facility] Nuclear Medicine, White 2 [address] [facility], 2nd [place] [address] Lawrence Ramires Steve 11/10/2024 Orders Only [facility] DIALYSIS VIRTUAL DEPARTMENT [address] [place] [address] Jed Dickey RN 11/09/2024 5:20 PM EDT - 11/09/2024 6:40 PM EDT Surgery [facility] Cardiac Boilermaker Fitter [address] [facility], Floor 9, [address] [place] [address] [facility] [place], Kitchen Lead Procedure Not Performed 11/09/2024 Procedure Pass [facility] Cardiac Boilermaker Fitter [address] [facility], Floor 9, [address] [place] [address] 11/04/2024 Procedure Pass [facility] Cardiac US [address] [place] [address] 11/03/2024 Procedure Pass [facility] Emergency Radiology, Main [place] [address] [facility], Floor 1 [place] [address] 11/01/2024 2:20 AM EDT - 11/29/2024 6:22 PM EDT Hospital Encounter [facility] [address] [place] [address] Margie Lawrence MD Oskar, MD Hao Preciado, MD Efren Valladares, MD Jamee Dow, MD Kassie Bailey, MD Valerie Taylor, MD Vu Ortez, MD Irwin Oviedo, MD Francesco Cleveland, MD Efrem Mcintosh, Pieter Lind MD Discharge Disposition: Home or Self Care from Last 3 Months Social History Tobacco Use Types Packs/Day Years [...] Orientation Straight 12/17/2021 12 :37 PM EDT Last Filed Vital Signs Vital Sign Reading Time Taken Comments Blood Pressure 175/84 11/29/2024 3:58 PM EDT Pulse 54 11/29/2024 3:00 PM EDT Temperature 36.4 C (97.5 F) 11/29/2024 3:00 PM EDT Respiratory Rate 10 11/29/2024 3:00 PM EDT Oxygen Saturation 99% 11/29/2024 3:00 PM EDT Inhaled Oxygen Concentration - - Weight 60.2 kg (132 lb 11.5 oz) 11/29/2024 3:00 PM EDT Height 165.1 cm (5' 5 ) 11/01/2024 9:00 PM EDT Body Mass Index 22.09 11/01/2024 9:00 PM EDT Plan of Treatment Upcoming Encounters Date Type Department Care Team (Late st Contact Info) Description 03/22/2025 3:00 PM EDT Office Visit [facility] Pulmonary Hypertension Clinic [address] [place] [address], 2nd Floor, [address] [place] [address] Zuleika Adams MD [address] [place] [address] [address] [place] [phone] [email or web address] Health Maintenance Due Date Last Done Comments BLOOD PRESSURE 1986 DEPRESSION SCREENING 1998 HIV ONE-TIME SCREENING (18-65 YEARS) 2004 PAP SMEAR 2007 PNEUMOCOCCAL VACCINES (0-49 years) (2 of 2 - PCV) 10/18/2018 10/18/2017, 06/06/2015, 05/05/2015 INFLUENZA VACCINE (#1) 2024 2, 04/09/2016, 05/05/2015 COVID-19 VACCINE ( season) 2025 Adult Td,Tdap Booster 03/04/2029 03/04/2019, 013 SMOKING STATUS SCREENING (Once After 26 Yrs) Completed 11/01/2024 HEPATITIS C SCREENING Completed 11/17/2024 , 11/15/2024, 11/11/2024, Additional history exists HEPATITIS A VACCINES Aged Out No long er eligible based on patient's age to complete this topic HIB VACCINES Aged Out No longer eligi ble based on patient's age to complete this topic MENINGOCOCCAL VACCINES (ACWY) Aged Out No longer eligible based on patient's age to complete this topic MENINGOCOCCAL VACCINES (B) Aged Out N o longer eligible based on patient's age to complete this topic Goals Goal Patient Goal Type Associated Problems [...] cell phone pictures and video calls like Goomeo. If patient is found to be recording [...] authored by: Italia Sheikh DNP, ANP-BC, CWS Medical Devices Not on file Procedures Procedure Name Priority Date/Time Associated Diagnosis Comments OUTSIDE CARDIOLOGY 11/30/2024 RECIRCULATION STUDY Routine 11/29/2024 2 :04 PM EDT ESRD (end stage renal disease) on dialysis POCT GLUCOSE Routine 11/29/2024 7:42 AM EDT CREAT. COMMENT Routine 11/29/2024 3:17 AM EDT PHOSPHORUS Routine 11/29/2024 3:17 AM EDT MAGNESIUM Routine 11/29/2024 3:17 AM EDT BASIC METABOLIC PANEL Routine 11/29/2024 3:17 AM EDT CBC Routine 11/29/2024 3:17 AM EDT PHOSPHORUS Routine 11/28/2024 9:05 AM EDT MAGNESIUM Routine 11/28/2024 9:05 AM EDT BASIC METABOLIC PANEL Routine 11/28/2024 9:05 AM EDT CBC Routine 11/28/2024 9:05 AM EDT IR HEMODIALYSIS CATHETER Routine 11/27/2024 12:40 PM EDT CREAT. COMMENT Routine 11/27/2024 7:40 AM EDT PHOSPHORUS Routine 11/27/2024 7:40 AM EDT MAGNESIUM Routine 11/27/2024 7:40 AM EDT BASIC METABOLIC PANEL Routine 11/27/2024 7:40 AM EDT CBC Routine 11/27/2024 7:40 AM EDT PHOSPHORUS Routine 11/26/2024 11:50 AM EDT MAGNESIUM Routine 11/26/2024 11:50 AM EDT BASIC METABOLIC PANEL Routine 11/26/2024 11:50 AM EDT CBC Routine 11/26/2024 11:50 AM EDT CREAT. COMMENT Routine 11/25/2024 3:53 AM EDT PHOSPHORUS Routine 11/25/2024 3:53 AM EDT MAGNESIUM Routine 11/25/2024 3:53 AM EDT BASIC METABOLIC PANEL Routine 11/25/2024 3:53 AM EDT CBC Routine 11/25/2024 3:53 AM EDT PHOSPHORUS Routine 11/24/2024 8:47 AM EDT MAGNESIUM Routine 11/24/2024 8:47 AM EDT BASIC METABOLIC PANEL Routine 11/24/2024 8:47 AM EDT CBC Routine 11/24/2024 8:47 AM EDT NM SPECT/CT SINGLE AREA SINGLE DAY Routine 11/23/2024 3:56 PM EDT CREAT. COMMENT Routine 11/23/2024 7:15 AM EDT PHOSPHORUS Routine 11/23/2024 7:15 AM EDT MAGNESIUM Routine 11/23/2024 7:15 AM EDT BASIC METABOLIC PANEL Routine 11/23/2024 7:15 AM EDT CBC Routine 11/23/2024 7:15 AM EDT XR CHEST PORTABLE Routine 11/22/2024 5:2 4 PM EDT CREAT. COMMENT Routine 11/22/2024 6:10 AM EDT PHOSPHORUS Routine 11/22/2024 6:10 AM EDT MAGNESIUM Routine 11/22/2024 6:10 AM EDT BASIC METABOLIC PANEL Routine 11/22/2024 6:10 AM EDT CBC Routine 11/22/2024 6:10 AM EDT XR CHEST PA AND LATERAL 2 VIEWS Routine 11/21/2024 4:52 PM EDT PHOSPHORUS Routine 11/21/2024 4:45 AM EDT MAGNESIUM Routine 11/21/2024 4:45 AM EDT BASIC METABOLIC PANEL Routine 11/21/2024 4:45 AM EDT CBC Routine 11/21/2024 4:45 AM EDT XR CHEST PORTABLE Imaging in AM 11/20/2024 2:3 7 PM EDT CREAT. COMMENT Routine 11/20/2024 7:30 AM EDT PHOSPHORUS Routine 11/20/2024 7:30 AM EDT MAGNESIUM Routine 11/20/2024 7:30 AM EDT LFTS (HEPATIC PANEL) Routine 11/20/2024 7:30 AM EDT BASIC METABOLIC PANEL Routine 11/20/2024 7:30 AM EDT CBC Routine 11/20/2024 7:30 AM EDT POCT GLUCOSE Routine 11/19/2024 2:17 PM EDT ANES BLOOD PATCH PERFORMABLE Routine 11/19/2024 12:58 PM EDT PA ANESTHESIA PERIPHERAL BLOCK PLACEHOLDER Routine 11/19/2024 12:58 PM EDT REVISION ARTERIOVENOUS FISTULA 11/19/2024 12:57 PM EDT Pain from A/V fistula ANESTHESIA POINT OF CARE IMAGE CAPTURE Routine 11/19/2024 11:41 AM EDT PHOSPHORUS Routine 11/19/2024 4:44 AM EDT MAGNESIUM Routine 11/19/2024 4:44 AM EDT LFTS (HEPATIC PANEL) Routine 11/19/2024 4:44 AM EDT BASIC METABOLIC PANEL Routine 11/19/2024 4:44 AM EDT CBC Routine 11/19/2024 4:44 AM EDT US LOWER EXTREMITY VEINS DUPLEX COMPLETE (BILATERAL) Routine 11/18/2024 2:38 PM EDT Swelling, limb CREAT. COMMENT Routine 11/18/2024 6:15 AM EDT PHOSPHORUS Routine 11/18/2024 6:15 AM EDT MAGNESIUM Routine 11/18/2024 6:15 AM EDT LFTS (HEPATIC PANEL) Routine 11/18/2024 6:15 AM EDT BASIC METABOLIC PANEL Routine 11/18/2024 6:15 AM EDT CBC Routine 11/18/2024 6:15 AM EDT NM LUNG VENTILATION IMAGING Routine 11/17/2024 3:[address] CHEST (HIGH RESOLUTION) WITHOUT CONTRAST Routine 11/17/2024 2:[address] ABDOMEN/PELVIS WITHOUT CONTRAST Routine 11/17/2024 2:01 PM EDT TTE LIMITED W/ AGITATED SALINE AND LIMITED DOPPLER Routine 11/17/2024 9:47 AM EDT Hypoxemia TYPE AND SCREEN (ABO,RH,ANTIBODY SCREEN) Routine 11/17/2024 5:58 AM EDT HEPATITIS C VIRAL LOAD (PCR) Routine 11/17/2024 5:58 AM EDT NT-PROBNP Routine 11/17/2024 5:55 AM EDT SCL-70 ANTIBODY Routine 11/17/2024 5:55 AM EDT COMPLEMENT C4 Routine 11/17/2024 5:55 AM EDT COMPLEMENT C3 Routine 11/17/2024 5:55 AM EDT DOUBLE STRANDED DNA ANTIBODIES Routine 11/17/2024 5:55 AM EDT ANTINUCLEAR ANTIBODY (MALLY) Routine 11/17/2024 5:55 AM EDT PHOSPHORUS Routine 11/17/2024 5:55 AM EDT MAGNESIUM Routine 11/17/2024 5:55 AM EDT LFTS (HEPATIC PANEL) Routine 11/17/2024 5:55 AM EDT BASIC METABOLIC PANEL Routine 11/17/2024 5:55 AM EDT CBC Routine 11/17/2024 5:55 AM EDT XR SPINE ENTIRE SURVEY 4 OR 5 VIEWS Routine 11/16/2024 1:20 PM EDT LAB ADD ON Routine 11/16/2024 8:08 AM EDT LAB ADD ON Routine 11/16/2024 8:05 AM EDT PHOSPHORUS Routine 11/16/2024 7:05 AM EDT CREAT. COMMENT Routine 11/16/2024 7:05 AM EDT MAGNESIUM Routine 11/16/2024 7:05 AM EDT LFTS (HEPATIC PANEL) Routine 11/16/2024 7:05 AM EDT BASIC METABOLIC PANEL Routine 11/16/2024 7:05 AM EDT CBC Routine 11/16/2024 7:05 AM EDT RIGHT HEART CATHETERIZATION Routine 11/15/2024 6:20 PM EDT Right-sided heart failure, unspecified HF chronicity Cardiomyopathy, unspecified type BASIC METABOLIC PANEL Routine 11/15/2024 3:22 PM EDT HEPATITIS B SURFACE ANTIBODY Routine 11/15/2024 12:30 PM EDT ESRD (end stage renal disease) on dialysis HEPATITIS C ANTIBODY, QUALITATIVE Routine 11/15/2024 12:30 PM EDT ESRD (end stage renal disease) on dialysis HEPATITIS B CORE ANTIBODY, TOTAL Routine 11/15/2024 12:30 PM EDT ESRD (end stage renal disease) on dialysis Hepatitis B viral load (PCR) Routine 11/15/2024 12:30 PM EDT ESRD (end stage renal disease) on dialysis HEPATITIS B SURFACE ANTIGEN Routine 11/15/2024 12:30 PM EDT ESRD (end stage renal disease) on dialysis HCG (QUANTITATIVE, BLOOD) Routine 11/15/2024 6:27 AM EDT LAB ADD ON Routine 11/15/2024 6:27 AM EDT CREAT. COMMENT Routine 11/15/2024 6:27 AM EDT MAGNESIUM Routine 11/15/2024 6:27 AM EDT LFTS (HEPATIC PANEL) Routine 11/15/2024 6:27 AM EDT BASIC METABOLIC PANEL Routine 11/15/2024 6:27 AM EDT CBC Routine 11/15/2024 6:27 AM EDT POCT GLUCOSE Routine 11/15/2024 12:20 AM EDT POCT GLUCOSE Routine 11/14/2024 3:19 PM EDT POCT GLUCOSE Routine 11/14/2024 11:54 AM EDT POCT GLUCOSE Routine 11/14/2024 10:42 AM EDT HCG (QUANTITATIVE, BLOOD) Routine 11/14/2024 10:34 AM EDT POCT GLUCOSE Routine 11/14/2024 7:57 AM EDT MAGNESIUM Routine 11/14/2024 4:32 AM EDT LFTS (HEPATIC PANEL) Routine 11/14/2024 4:32 AM EDT BASIC METABOLIC PANEL Routine 11/14/2024 4:32 AM EDT CBC Routine 11/14/2024 4:32 AM EDT POCT GLUCOSE Routine 11/14/2024 4:13 AM EDT POCT GLUCOSE Routine 11/13/2024 11:57 PM EDT POCT GLUCOSE Routine 11/13/2024 8:11 PM EDT POCT GLUCOSE Routine 11/13/2024 4:31 PM EDT POCT GLUCOSE Routine 11/13/2024 3:03 PM EDT POCT GLUCOSE Routine 11/13/2024 2:31 PM EDT POCT GLUCOSE Routine 11/13/2024 11:48 AM EDT POCT GLUCOSE Routine 11/13/2024 9:55 AM EDT CREAT. COMMENT Routine 11/13/2024 7:24 AM EDT CBC Routine 11/13/2024 7:24 AM EDT LACTATE (BLOOD GAS) STAT 11/13/2024 7 :24 AM EDT VENOUS BLOOD GAS STAT 11/13/2024 7:24 AM EDT BASIC METABOLIC PANEL STAT 11/13/2024 7:24 AM EDT POCT GLUCOSE Routine 11/13/2024 6:44 AM EDT TROPONIN Routine 11/13/2024 5:44 AM EDT LAB ADD ON Routine 11/13/2024 5:44 AM EDT CREAT. COMMENT Routine 11/13/2024 4:30 AM EDT MAGNESIUM Routine 11/13/2024 4:30 AM EDT LFTS (HEPATIC PANEL) Routine 11/13/2024 4:30 AM EDT BASIC METABOLIC PANEL Routine 11/13/2024 4:30 AM EDT CBC Routine 11/13/2024 4:30 AM EDT TROPONIN Routine 11/13/2024 4:30 AM EDT POCT GLUCOSE Routine 11/13/2024 3:13 AM EDT POCT GLUCOSE Routine 11/13/2024 12:19 AM EDT TROPONIN Routine 11/12/2024 11:16 PM EDT POCT GLUCOSE Routine 11/12/2024 9:47 PM EDT CREAT. COMMENT Routine 11/12/2024 7:51 PM EDT BASIC METABOLIC PANEL Routine 11/12/2024 7:51 PM EDT POCT GLUCOSE Routine 11/12/2024 7:34 PM EDT POCT GLUCOSE Routine 11/12/2024 6:44 PM EDT POCT GLUCOSE Routine 11/12/2024 6:27 PM EDT XR CHEST PORTABLE Routine 11/12/2024 5:5 9 PM EDT POCT GLUCOSE Routine 11/12/2024 5:51 PM EDT CREAT. COMMENT Routine 11/12/2024 5:40 PM EDT LACTIC ACID (LACTATE) STAT 11/12/2024 5:40 PM EDT D-DIMER STAT 11/12/2024 5:40 PM EDT FIBRINOGEN STAT 11/12/2024 5:40 PM EDT PTT STAT 11/12/2024 5:40 PM EDT TROPONIN STAT 11/12/2024 5:40 PM EDT VENOUS BLOOD GAS PLUS STAT 11/12/2024 5:40 PM EDT PT-INR STAT 11/12/2024 5:40 PM EDT MAGNESIUM STAT 11/12/2024 5:40 PM EDT LFTS (HEPATIC PANEL) STAT 11/12/2024 5:40 PM EDT CBC STAT 11/12/2024 5:40 PM EDT BASIC METABOLIC PANEL Routine 11/12/2024 5:40 PM EDT ECG 12-LEAD STAT 11/12/2024 5:30 PM EDT POCT GLUCOSE Routine 11/12/2024 5:30 PM EDT POCT GLUCOSE Routine 11/12/2024 5:24 PM EDT POCT GLUCOSE Routine 11/12/2024 5:20 PM EDT POCT GLUCOSE Routine 11/12/2024 4:39 PM EDT TTE COMPREHENSIVE Routine 11/12/2024 3:4 2 PM EDT Cardiac murmur, unspecified High output heart failure POCT GLUCOSE Routine 11/12/2024 3:35 PM EDT CREAT. COMMENT Routine 11/12/2024 1:10 PM EDT BASIC METABOLIC PANEL Routine 11/12/2024 1:10 PM EDT HCG (QUANTITATIVE, BLOOD) STAT 11/12/2024 10:25 AM EDT HCG (QUANTITATIVE, BLOOD) Routine 11/12/2024 9:24 AM EDT LAB ADD ON Routine 11/12/2024 9:24 AM EDT CREAT. COMMENT Routine 11/12/2024 6:44 AM EDT MAGNESIUM Routine 11/12/2024 6:44 AM EDT LFTS (HEPATIC PANEL) Routine 11/12/2024 6:44 AM EDT BASIC METABOLIC PANEL Routine 11/12/2024 6:44 AM EDT CBC Routine 11/12/2024 6:44 AM EDT NC AMYLOID SPECT/CT WITH 99MTC-PYROPHOSPHATE Routine 11/11/2024 5:00 PM EDT Cardiomyopathy, unspecified type CREAT. COMMENT Routine 11/11/2024 6:35 AM EDT MAGNESIUM Routine 11/11/2024 6:35 AM EDT LFTS (HEPATIC PANEL) Routine 11/11/2024 6:35 AM EDT BASIC METABOLIC PANEL Routine 11/11/2024 6:35 AM EDT CBC Routine 11/11/2024 6:35 AM EDT HEPATITIS C ANTIBODY, QUALITATIVE Routine 11/11/2024 6:35 AM EDT FUNGAL CULTURE Routine 11/10/2024 12:49 PM EDT XR ABDOMEN 2 VIEWS Routine 11/10/2024 11 :58 AM EDT HCG (QUANTITATIVE, BLOOD) Routine 11/10/2024 4:20 AM EDT MAGNESIUM Routine 11/10/2024 4:20 AM EDT LFTS (HEPATIC PANEL) Routine 11/10/2024 4:20 AM EDT BASIC METABOLIC PANEL Routine 11/10/2024 4:20 AM EDT CBC Routine 11/10/2024 4:20 AM EDT PROCEDURE NOT PERFORMED Routine 11/09/2024 5:15 PM EDT Cardiomyopathy, unspecified type TTE COMPREHENSIVE Routine 11/09/2024 2:2 6 PM EDT Cardiomyopathy, unspecified type HCG (QUANTITATIVE, BLOOD) Routine 11/09/2024 2:06 AM EDT LAB ADD ON Routine 11/09/2024 2:06 AM EDT CREAT. COMMENT Routine 11/09/2024 2:06 AM EDT HAPTOGLOBIN Routine 11/09/2024 2:06 AM EDT MAGNESIUM Routine 11/09/2024 2:06 AM EDT LFTS (HEPATIC PANEL) Routine 11/09/2024 2:06 AM EDT BASIC METABOLIC PANEL Routine 11/09/2024 2:06 AM EDT CBC Routine 11/09/2024 2:06 AM EDT HEPATITIS C ANTIBODY, QUALITATIVE Routine 11/09/2024 2:06 AM EDT MRI FACE WITH AND WITHOUT CONTRAST Routine 11/08/2024 10:03 AM EDT LAB ADD ON Routine 11/08/2024 7:59 AM EDT ECG 12-LEAD Routine 11/08/2024 5:48 AM EDT XR ABDOMEN 2 VIEWS STAT 11/08/2024 4: 58 AM EDT LDH Routine 11/08/2024 2:16 AM EDT CREAT. COMMENT Routine 11/08/2024 2:16 AM EDT MAGNESIUM Routine 11/08/2024 2:16 AM EDT LFTS (HEPATIC PANEL) Routine 11/08/2024 2:16 AM EDT BASIC METABOLIC PANEL Routine 11/08/2024 2:16 AM EDT CBC Routine 11/08/2024 2:16 AM EDT BLOOD CULTURE, ROUTINE Routine 4:45 PM EDT FREE T4 Routine 11/07/2024 10:25 AM EDT CBC Routine 11/07/2024 10:25 AM EDT SPECIAL SLIDE BOX Routine 11/07/2024 10: 25 AM EDT TSH WITH REFLEX Routine 11/07/2024 10:25 AM EDT FIBRINOGEN Routine 11/07/2024 10:25 AM EDT RETICULOCYTES Routine 11/07/2024 10:25 AM EDT Platelet count, citrated Routine 11/07/2024 10:25 AM EDT MAGNESIUM Routine 11/07/2024 5:31 AM EDT LFTS (HEPATIC PANEL) Routine 11/07/2024 5:31 AM EDT BASIC METABOLIC PANEL Routine 11/07/2024 5:31 AM EDT CBC Routine 11/07/2024 5:31 AM EDT from Last 3 Months Results * Outside Cardiology Report Only (11/30/2024) us Scanning Interface Provider CV CARDIAC SERVICES ORDERABLES Final Result * (ABNORMAL) Recirculation study (11/29/2024 2:04 PM EDT) ARTERIAL BUN 17 8 - 25 mg/dL [facility] BUN, venous <35(H) 8 - 25 mg/dL [facility] BUN, peripheral 17 8 - 25 mg/dL [facility] Blood 11/29/2024 2:04 PM EDT 11/29/2024 2:54 PM EDT us Marcial Maya MD LAB BLOOD ORDERABLES Fi nal Result Performing Organization Address City/[facility]/ZIP Co de Phone Number [address] [address] * POCT Glucose (11/29/2024 7:42 AM EDT) Only the most recent of28 resultswithin the time period is included. Glucose, POCT 84 70 - 110 mg/dL [facility] 11/29/2024 7:42 AM EDT 11/29/2024 7:45 AM EDT us Pieter Topete MD POINT OF CARE TEST ORDERABLES Final Result Performing Organization Address City/[facility]/ZIP Co de Phone Number [address] [address] * (ABNORMAL) Creat. Comment (11/29/2024 3:17 AM EDT) Only the most recent of18 resultswithin the time period is included. Creat Comment Increasing Creatinine Value on your Patient: The calculated GFR may thus overestimate the true GFR and should not be used to guide medication dosing.(A) Negative [facility] 11/29/2024 3:17 AM EDT 11/29/2024 3:46 AM EDT us Lor Martin MD, MPH LAB BLOOD ORDERABLES Fi nal Result Performing Organization Address City/[facility]/ZIP Co de Phone Number [address] [address] * (ABNORMAL) CBC (11/29/2024 3:17 AM EDT) Only the most recent of26 resultswithin the time period is included. WBC 4.78 4.00 - 11.00 K/uL [facility] RBC 2.56(L) 4.00 - 5.20 M/uL [facility] HGB 7.9(L) 12.0 - 16.0 g/dL [facility] HCT 26.2(L) 36.0 - 46.0 % [facility] PLT 111(L) 150 - 450 K/uL [facility] MCV 102.3(H) 80.0 - 100.0 fL [facility] MCH 30.9 27.0 - 31.0 pg [facility] MCHC 30.2(L) 32.0 - 36.0 g/dL [facility] RDW 17.0(H) 11.5 - 14.5 % [facility] MPV 10.7 8.4 - 12.0 fL [facility] NRBC 0.00 0.00 /100 WBCs [facility] ABSOLUTE NRBC 0.00 0.00 K/uL [facility] Blood 11/29/2024 3:17 AM EDT 11/29/2024 3:46 AM EDT us Alfredo Fernando MD LAB BLOOD ORDERABLES Samira l Result [address] [address] * Phosphorus (11/29/2024 3:17 AM EDT) Only the most recent of14 resultswithin the time period is included. PHOSPHORUS 4.2 2.6 - 4.5 mg/dL [facility] Blood 11/29/2024 3:17 AM EDT 11/29/2024 3:46 AM EDT Minh Bonds MD LAB BLOOD ORDERABLES Final Result Performing Organization Address City/[facility] Co de Phone Number [address] [address] * Magnesium (11/29/2024 3:17 AM EDT) Only the most recent of24 resultswithin the time period is included. MAGNESIUM 2.4 1.7 - 2.4 mg/dL [facility] Blood 11/29/2024 3:17 AM EDT 11/29/2024 3:46 AM EDT Alfredo Fernando MD LAB BLOOD ORDERABLES Samira l Result Performing Organization Address [facility] Co de Phone Number [address] [address] * (ABNORMAL) Basic metabolic panel (11/29/2024 3:17 AM EDT) Only the most recent of28 resultswithin the time period is included. SODIUM 137 135 - 145 mmol/L [facility] POTASSIUM 6.0(H) 3.4 - 5.0 mmol/L [facility] Comment:SPECIMEN NOT HEMOLYZ ED CHLORIDE 98 98 - 108 mmol/L [facility] CO2 26 23 - 32 mmol/L [facility] BUN 32(H) 8 - 25 mg/dL [facility] CREATININE 7.00(H) 0.50 - 1.00 mg/dL [facility] Comment:INCREASED GLUCOSE 100 70 - 110 mg/dL [facility] CALCIUM 9.2 8.5 - 10.5 mg/dL [facility] EGFR 7(L) >59 mL/min/1. 73m2 [facility] Comment:Estimated glomerular filtration rate calculated using the CKD-EPI refit equation. ANION GAP 13 3 - 17 mmol/L [facility] Blood 11/29/2024 3:17 AM EDT 11/29/2024 3:46 AM EDT Alfredo Fernando MD LAB BLOOD ORDERABLES Samira l Result Performing Organization Address City/[facility] Co de Phone Number [facility] [address] [place] [address] * IR Hemodialysis Catheter Removal; Chest; Left; Lt tunneled IJ dialysis catheter; Tunneled (11/27/2024 12:40 PM EDT) Anatomical Region Laterality Modality Radio Fluoroscop y 11/27/2024 1:27 PM EDT Narrative 11/27/2024 1:28 PM EDT Procedure: left HD tunneled catheter removal Clinical History and Indication: functioning AVF Operators: Jenise Britton NP Pre-Procedural Medications: Antibiotics: See medication administration in electronic medical record for details. Other: None. Intra-Procedural Medications and Contrast: See medication administration in electronic medical record for details. Patient Radiation Dose: Fluoroscopy Time: minutes. Cumulative Dose: mGy. Pmha-Pcbm-Qjmrxnj: To convert from mGy x cm^2 to microGy x m^2, divide by 10 Device(s): None. Technique and Findings: Verbal informed consent was obtained. A Procedural Time-Out was performed immediately prior to the procedure. the catheter was removed, inspected, and confirmed to be removed in its entirety, including the cuff. Hemostasis was achieved by manual compression. A sterile dressing was placed. Specimens Submitted: None. Adverse Events: None. Estimated Blood Loss: Minimal. Summary: 1. left tunneled catheter removal. Procedure Note Jenise Britton, GARDENER FLORIST - 11/27/2024 Procedure: left HD tunneled catheter removal Clinical History and Indication: functioning AVF Operators: Jenise Britton NP Pre-Procedural Medications: Antibiotics: See medication administration in electronic medical recordfor details. Other: None. Intra-Procedural Medications and Contrast: See medication administrationin electronic medical record for details. Patient Radiation Dose: Fluoroscopy Time: minutes. Cumulative Dose: mGy. Qfyr-Flmw-Wczazsr: To convert from mGy x cm^2 to microGy x m^2, divide by 10 Device(s): None. Technique and Findings: Verbal informed consent was obtained. A Procedural Time-Out was performedimmediately prior to the procedure. the catheter was removed, inspected, and confirmed to be removed in itsentirety, including the cuff. Hemostasis was achieved by manualcompression. A sterile dressing was placed. Specimens Submitted: None. Adverse Events: None. Estimated Blood Loss: Minimal. Summary: 1. left tunneled catheter removal. us Robe Stiles MD, MS IMG IR VASCULAR Final Result * NM SPECT/CT Single Area Single Day (11/23/2024 3:56 PM EDT) Anatomical Region Laterality Modality Nuclear Medicine 11/23/2024 3:57 PM EDT Impressions 11/23/2024 4:42 PM EDT Not characteristic for pulmonary embolism. It is recommended that all VQ scan probability levels be combined with the clinical probability score (Wells or similar) to arrive at overall probability. If the pretest probability is high, but VQ findings are discordant, then another test may still be indicated such as CT PE or US Lower Extremity for DVT. ATTESTATION: I, Dr. Ana Maria Ruiz as teaching physician, have reviewed the images for this case and if necessary edited the report originally created by Vasquez Paez. Narrative 11/23/2024 4:42 PM EDT EXAM: NM SPECT/CT SINGLE AREA SINGLE DAY CLINICAL INDICATION: * Respiratory failure; Needs CXR within 24 hr for V/Q scan (concern for CPETH, prior attempt aborted due to pain). TECHNIQUE: 15.41 mCi [id number] inhalation aerosol was inhaled and a SPECT of the thorax was obtained. Subsequently, following the intravenous administration of 4.03 mCi Tc-99m-MAA, SPECT of the thorax was obtained. A low dose, nondiagnostic CT of the chest was obtained for localization. No diagnostic CT images were obtained. Pseudoplanar and MIP reconstructions were created. COMPARISON: XR CHEST PA AND LATERAL 2 VIEWS FINDINGS: Ventilation images demonstrate heterogenous distribution of radiotracer. Perfusion images demonstrate mildly heterogenous distribution of radiotracer. There are no segmental or subsegmental mismatched defects suspicious for pulmonary embolism. There are scattered small matched defects bilaterally. Localization CT images demonstrate no significant change compared to chest CT dated 11/17/2024, please see report for further anatomic evaluation. Procedure Note Ana Maria Ruiz MD - 11/23/2024 EXAM: NM SPECT/CT SINGLE AREA SINGLE DAY CLINICAL INDICATION: * Respiratory failure; Needs CXR within 24 hr for V/Qscan (concern for CPETH, prior attempt aborted due to pain). TECHNIQUE: 15.41 mCi [id number] inhalation aerosol was inhaled and aSPECT of the thorax was obtained. Subsequently, following the intravenousadministration of 4.03 mCi Tc-99m-MAA, SPECT of the thorax was obtained. Alow dose, nondiagnostic CT of the chest was obtained for localization. Nodiagnostic CT images were obtained. Pseudoplanar and MIP reconstructionswere created. COMPARISON: XR CHEST PA AND LATERAL 2 VIEWS FINDINGS: Ventilation images demonstrate heterogenous distribution of radiotracer. Perfusion images demonstrate mildly heterogenous distribution ofradiotracer. There are no segmental or subsegmental mismatched defects suspicious forpulmonary embolism. There are scattered small matched defectsbilaterally. Localization CT images demonstrate no significant change compared to chestCT dated 11/17/2024, please see report for further anatomic evaluation. IMPRESSION: Not characteristic for pulmonary embolism. It is recommended that all VQ scan probability levels be combined with theclinical probability score (Wells or similar) to arrive at overallprobability. If the pretest probability is high, but VQ findings arediscordant, then another test may still be indicated such as CT PE or USLower Extremity for DVT. ATTESTATION: I, Dr. Ana Maria Ruiz as teaching physician, havereviewed the images for this case and if necessary edited the reportoriginally created by Vasquez Paez. us Minh Bonds MD IMG NM TUMOR LOC Final Resu lt * XR Chest Portable (11/22/2024 5:24 PM EDT) Anatomical Region Laterality Modality Chest Computed Radiogr aphy 11/23/2024 7:47 AM EDT Impressions 11/23/2024 7:48 AM EDT No radiographic evidence of pneumonia or pulmonary edema. Cardiomegaly. Narrative 11/23/2024 7:48 AM EDT XR CHEST PORTABLE Referring clinician's provided indication for this examination in Epic: Respiratory failure; Needs CXR within 24 hr for V/Q scan (concern for CPETH, prior attempt aborted due to pain) COMPARISON: XR CHEST PA AND LATERAL 2 VIEWS FINDINGS: Devices/Tubes/Lines: The left internal jugular central venous catheter terminates near the cavoatrial junction. Lungs: No focal consolidation or pulmonary edema. Pleura: No pleural effusion or pneumothorax. Heart/Mediastinum: Cardiomegaly. Bones/Soft Tissues: Unchanged Procedure Note Shai Renee DO - 11/23/2024 XR CHEST PORTABLE Referring clinician's provided indication for this examination in [facility]:Respiratory failure; Needs CXR within 24 hr for V/Q scan (concern forCPETH, prior attempt aborted due to pain) COMPARISON: XR CHEST PA AND LATERAL 2 VIEWS FINDINGS: Devices/Tubes/Lines: The left internal jugular central venous catheterterminates near the cavoatrial junction. Lungs: No focal consolidation or pulmonary edema. Pleura: No pleural effusion or pneumothorax. Heart/Mediastinum: Cardiomegaly. Bones/Soft Tissues: Unchanged IMPRESSION: No radiographic evidence of pneumonia or pulmonary edema. Cardiomegaly. us Minh Bonds MD IMG XR CHEST Final Resul t * XR CHEST PA AND LATERAL 2 VIEWS (11/21/2024 4:52 PM EDT) Anatomical Region Laterality Modality Chest Computed Radiogr aphy 11/21/2024 5:01 PM EDT Impressions 11/21/2024 5:03 PM EDT Stable large cardiac silhouette with interstitial pulmonary edema. Narrative 11/21/2024 5:03 PM EDT XR CHEST PA AND LATERAL 2 VIEWS Referring clinician's provided indication for this examination in [facility]: Dyspnea (Shortness of Breath); Pt with increasing SOB w/ pulm HTN on sildenafil, assess for pulm edema COMPARISON: XR CHEST PORTABLE FINDINGS: Devices/Tubes/Lines: The tip of the LEFT IJ catheter is near the cavoatrial junction. Lungs: There is interstitial pulmonary edema. Pleura: There is no pleural effusion or pneumothorax. Heart/Mediastinum: Stable large cardiac silhouette. Bones/Soft Tissues: The bones are unchanged. Procedure Note Britney Wilkinson MD - 11/21/2024 XR CHEST PA AND LATERAL 2 VIEWS Referring clinician's provided indication for this examination in [facility]:Dyspnea (Shortness of Breath); Pt with increasing SOB w/ pulm HTN onsildenafil, assess for pulm edema COMPARISON: XR CHEST PORTABLE FINDINGS: Devices/Tubes/Lines: The tip of the LEFT IJ catheter is near thecavoatrial junction. Lungs: There is interstitial pulmonary edema. Pleura: There is no pleural effusion or pneumothorax. Heart/Mediastinum: Stable large cardiac silhouette. Bones/Soft Tissues: The bones are unchanged. IMPRESSION: Stable large cardiac silhouette with interstitial pulmonary edema. us Sukh Gayle MD IMG XR CHEST Final Res ult * XR Chest Portable (11/20/2024 2:37 PM EDT) Anatomical Region Laterality Modality Chest Computed Radiogr aphy 11/20/2024 2:41 PM EDT Impressions 11/20/2024 3:12 PM EDT Tubes and lines as described. Cardiomegaly. Persistent interstitial pulmonary edema. Narrative 11/20/2024 3:12 PM EDT XR CHEST PORTABLE Referring clinician's provided indication for this examination in [facility]: Dyspnea (Shortness of Breath); Evaluating SOB iso pulmonary hypertension s/p initiating sildenafil treatment COMPARISON: XR CHEST PORTABLE FINDINGS: Devices/Tubes/Lines: None. There is a tunneled LEFT internal jugular catheter terminating in the RIGHT atrium. Lungs: There is some mild interstitial edema in both lungs. Pleura: Normal. No pleural effusion or pneumothorax. Heart/Mediastinum: Heart is enlarged Bones/Soft Tissues: Normal. No significant skeletal abnormality. Procedure Note Kimber Keyes MD - 11/20/2024 XR CHEST PORTABLE Referring clinician's provided indication for this examination in [facility]:Dyspnea (Shortness of Breath); Evaluating SOB iso pulmonary hypertensions/p initiating sildenafil treatment COMPARISON: XR CHEST PORTABLE FINDINGS: Devices/Tubes/Lines: None. There is a tunneled LEFT internal jugularcatheter terminating in the RIGHT atrium. Lungs: There is some mild interstitial edema in both lungs. Pleura: Normal. No pleural effusion or pneumothorax. Heart/Mediastinum: Heart is enlarged Bones/Soft Tissues: Normal. No significant skeletal abnormality. IMPRESSION: Tubes and lines as described. Cardiomegaly. Persistent interstitial pulmonary edema. us Minh Bonds MD IMG XR CHEST Final Resul t * (ABNORMAL) LFTs (hepatic panel) (11/20/2024 7:30 AM EDT) Only the most recent of15 resultswithin the time period is included. ALBUMIN 4.3 3.3 - 5.0 g/dL [facility] TOTAL BILIRUBIN 0.3 0.0 - 1.0 mg/dL [facility] DIRECT BILIRUBIN 0.1 0.0 - 0.3 mg/dL [facility] ALKALINE PHOSPHATASE 106(H) 30 - 100 U/L [facility] AST 20 9 - 32 U/L [facility] ALT 12 7 - 33 U/L [facility] TOTAL PROTEIN 7.2 6.0 - 8.3 g/dL [facility] GLOBULIN 2.9 1.9 - 4.1 g/dL [facility] Blood 11/20/2024 7:30 AM EDT 11/20/2024 7:39 AM EDT us Alfredo Fernando MD LAB BLOOD ORDERABLES Samira sarah Result [address] [address] * PA ANESTHESIA PERIPHERAL BLOCK PLACEHOLDER, ANES BLOOD PATCH PERFORMABLE (11/19/2024 12:58 PM EDT) Narrative Zhen Sanchez MD - 11/19/2024 12:58 PM EDT Zhen Sanchez MD 11/19/2024 12:59 PM Peripheral Block Placement Procedure Note: Reason for block: surgeon request, at patient's request and post op pain managment Block performed by: fellow/resident/MANAGEMENT SPECIALIST Anesthesiologist: Ashley Kendrick MD Fellow/Resident/MANAGEMENT SPECIALIST: Zhen Sanchez MD [place] Protocol Performed: consent obtained, patient identified with 2 identifiers, correct procedure verified, correct site and laterality confirmed, verified equipment, coagulation status reviewed and implant history reviewed. Procedure Details: ASA monitors applied during procedure and vitals signs recorded in nursing flowsheet during procedure. Block type: single shot Ultrasound device used: Vigiglobe E Laterality: left Block location: upper extremity and axillary brachial plexus Patient position: supine Prep: chloraprep Image guidance: ultrasound guidance Ultrasound image: stored Needle visualization: good Nerve visualization: good Block Technique Block technique: ultrasound guided Needle type: stimulating needle used Needle gauge: 22 Injection assessment:incremental injection, negative aspiration for heme and no paresthesia on injection Paresthesia: none Needle length: 8cm Post Block Placement Assessment Complications Observed: No Notes Block Notes: Block site marked; timeout performed verifying location, laterality, and procedure. Lidocaine 1% local SC infiltration at site. Under ultrasonic verification the median, radial, ulnar and musculocutaneous nerves were identified. Under ultrasonic visualization the needle was advanced, the terminal nerves of the brachial plexus were approximated, and the local anesthetic was injected easily and without pain in 5cc aliquots post negative aspiration. The patient experienced no paresthesias. The procedure was well tolerated by the patient us Leonel Phan PA ANESTHESIA Final Result * ANESTHESIA POINT OF CARE IMAGE CAPTURE (11/19/2024 11:41 AM EDT) Anatomical Region Laterality Modality Ultrasound Narrative 11/19/2024 11:40 AM EDT Zhen Sanchez MD 11/19/2024 11:41 AM Anesthesia Point of Care Image Capture Performed by: Zhen Sanchez MD Authorized by: Leonel Phan Accession Number: [id number] us Leonel Phan IMG POINT OF CARE EXAMS Final Re sult * US Lower Extremity Veins Duplex Complete (Bilateral) (11/18/2024 2:38 PM EDT) Anatomical Region Laterality Modality Ultrasound 11/19/2024 6:00 AM EDT Impressions 11/19/2024 6:01 AM EDT * No evidence of deep or superficial venous thrombosis in the visualized veins of the right lower extremity. * No evidence of deep or superficial venous thrombosis in the visualized veins of the left lower extremity. Narrative 11/19/2024 6:01 AM EDT US LOWER EXTREMITY VEINS DUPLEX COMPLETE (BILATERAL) Referring clinician's provided indication for this examination in Epic: Swelling of Limb; Evaluate for DVT per hematology to decide on AC TECHNIQUE: Lower extremity venous ultrasound with color and spectral Doppler. COMPARISON: None. FINDINGS: Exam Quality: Technically adequate exam demonstrates: Right lower extremity: Common femoral vein: Normal compressibility and flow characteristics. Femoral vein: Normal compressibility and flow characteristics. Proximal profunda femoral vein: Normal compressibility. Popliteal vein: Normal compressibility and flow characteristics. Posterior tibial veins: Normal compressibility. Peroneal veins: Normal compressibility. Great saphenous vein: Normal compressibility at the saphenofemoral junction. Left lower extremity: Common femoral vein: Normal compressibility and flow characteristics. Femoral vein: Normal compressibility and flow characteristics. Proximal profunda femoral vein: Normal compressibility. Popliteal vein: Normal compressibility and flow characteristics. Posterior tibial veins: Normal compressibility. Peroneal veins: Normal compressibility. Great saphenous vein: Normal compressibility at the saphenofemoral junction. Procedure Note Harmeet Hernadez MD, SENA - 11/19/2024 US LOWER EXTREMITY VEINS DUPLEX COMPLETE (BILATERAL) Referring clinician's provided indication for this examination in Epic:Swelling of Limb; Evaluate for DVT per hematology to decide on AC TECHNIQUE: Lower extremity venous ultrasound with color and spectralDoppler. COMPARISON: None. FINDINGS: Exam Quality: Technically adequate exam demonstrates: Right lower extremity: Common femoral vein: Normal compressibility and flow characteristics. Femoral vein: Normal compressibility and flow characteristics. Proximal profunda femoral vein: Normal compressibility. Popliteal vein: Normal compressibility and flow characteristics. Posterior tibial veins: Normal compressibility. Peroneal veins: Normal compressibility. Great saphenous vein: Normal compressibility at the saphenofemoraljunction. Left lower extremity: Common femoral vein: Normal compressibility and flow characteristics. Femoral vein: Normal compressibility and flow characteristics. Proximal profunda femoral vein: Normal compressibility. Popliteal vein: Normal compressibility and flow characteristics. Posterior tibial veins: Normal compressibility. Peroneal veins: Normal compressibility. Great saphenous vein: Normal compressibility at the saphenofemoraljunction. IMPRESSION: * No evidence of deep or superficial venous thrombosis in the visualizedveins of the right lower extremity. * No evidence of deep or superficial venous thrombosis in the visualizedveins of the left lower extremity. us Minh Bonds MD CV US VASCULAR Final Resul t * NM Lung Ventilation Imaging (11/17/2024 3:27 PM EDT) Anatomical Region Laterality Modality Chest, Lung Nuclear Medicine 11/17/2024 3:34 PM EDT Impressions 11/17/2024 5:09 PM EDT No obvious ventilation defect. Unable to assess pulmonary embolism in the absence of lung perfusion imaging. ATTESTATION: I, Dr. Fabricio Moncada as teaching physician, have reviewed the images for this case and if necessary edited the report originally created by Yokasta Lerma. Narrative 11/17/2024 5:09 PM EDT NM LUNG VENTILATION IMAGING Lung ventilation Scan COMPARISON: No relevant prior comparison available. TECHNIQUE: 15.75 mCi of technetium-99m Tech[place] was inhaled and images of the lungs obtained. Perfusion imaging was not performed per patient's request due to discomfort. FINDINGS: Ventilation images demonstrate a relatively homogeneous distribution of radiotracer. There is no obvious moderate or large sized ventilation defect. Procedure Note Fabricio Moncada MD - 11/17/2024 NM LUNG VENTILATION IMAGING Lung ventilation Scan COMPARISON: No relevant prior comparison available. TECHNIQUE: 15.75 mCi of technetium-99m Tech[place] was inhaled and imagesof the lungs obtained. Perfusion imaging was not performed per patient'srequest due to discomfort. FINDINGS: Ventilation images demonstrate a relatively homogeneous distribution ofradiotracer. There is no obvious moderate or large sized ventilationdefect. IMPRESSION: No obvious ventilation defect. Unable to assess pulmonary embolism in the absence of lung perfusionimaging. ATTESTATION: IDr. Fabricio as teaching physician, have reviewedthe images for this case and if necessary edited the report originallycreated by Yokasta Lerma. us Minh Bonds MD IMG NM LUNG SCAN Final Resu lt * CT CHEST (HIGH RESOLUTION) WITHOUT CONTRAST (11/17/2024 2:01 PM EDT) Anatomical Region Laterality Modality Chest Computed Tomogra phy 11/17/2024 2:08 PM EDT Impressions 11/17/2024 2:55 PM EDT Mosaic attenuation of the lungs with air trapping which may be related to small airways disease. Mosaic attenuation can be seen in CTEPH. Difficult to exclude a component of superimposed groundglass opacity which could be related to chronic edema. No evidence of fibrotic interstitial lung disease Dilated main pulmonary artery and heart chambers Narrative 11/17/2024 2:[address] CHEST (HIGH RESOLUTION) WITHOUT CONTRAST Referring clinician's provided indication for this examination in Epic: * Interstitial lung disease; Pt with ESRD on HD ? pre-capillary and post-capillary HTN want to assess if pHTN is due to portopulmonary causes TECHNIQUE: Multidetector CT of the chest was performed without intravenous contrast using tailored dose modulation techniques. Thin inspiratory, expiratory and inspiratory prone images were obtained as part of a high-resolution chest CT protocol. COMPARISON: CT CHEST (VASCULAR NON-ANGIO) WITH CONTRAST FINDINGS: Devices/Tubes/Lines: There is a LEFT IJ line which terminates in the upper RIGHT atrium. Lungs: There is marked mosaic attenuation of the lungs with evidence of his images. No subpleural reticular opacities, traction bronchiectasis or honeycombing. There is subsegmental atelectasis in the lower lobes there are scattered calcified granulomas. Pleura: No pleural effusion or pneumothorax. Mediastinum: No thyroid nodules. There is multichamber cardiomegaly. The main pulmonary artery is dilated measuring 4 cm. There is no pericardial effusion. Lymph Nodes: No enlarged supraclavicular, axillary, mediastinal, or hilar lymph nodes. Upper Abdomen: Please see concurrent abdominal CT for abdominal findings. Chest Wall: No chest wall mass. 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 Bones: No suspicious lytic or blastic lesions. Procedure [facility] De [facility] CHEST (HIGH RESOLUTION) WITHOUT CONTRAST Referring clinician's provided indication for this examination in [facility]: *Interstitial lung disease; Pt with ESRD on HD ? pre-capillary andpost-capillary HTN want to assess if pHTN is due to portopulmonarycauses TECHNIQUE: Multidetector CT of the chest was performed without intravenouscontrast using tailored dose modulation techniques. Thin inspiratory,expiratory and inspiratory prone images were obtained as part of ahigh-resolution chest CT protocol. COMPARISON: CT CHEST (VASCULAR NON-ANGIO) WITH CONTRAST FINDINGS: Devices/Tubes/Lines: There is a LEFT IJ line which terminates in the upperRIGHT atrium. Lungs: There is marked mosaic attenuation of the lungs with evidence ofhis images. No subpleural reticular opacities, traction bronchiectasis orhoneycombing. There is subsegmental atelectasis in the lower lobes thereare scattered calcified granulomas. Pleura: No pleural effusion or pneumothorax. Mediastinum: No thyroid nodules. There is multichamber cardiomegaly. Themain pulmonary artery is dilated measuring 4 cm. There is no pericardialeffusion. Lymph Nodes: No enlarged supraclavicular, axillary, mediastinal, or hilarlymph nodes. Upper Abdomen: Please see concurrent abdominal CT for abdominalfindings. Chest Wall: No chest wall mass. There is a fistula in the LEFT upperextremity. Bones: No suspicious lytic or blastic lesions. IMPRESSION: Mosaic attenuation of the lungs with air trapping which may be related tosmall airways disease. Mosaic attenuation can be seen in CTEPH. Difficultto exclude a component of superimposed groundglass opacity which could berelated to chronic edema. No evidence of fibrotic interstitial lung disease Dilated main pulmonary artery and heart chambers us Minh Bonds MD IMG CT CHEST Final Resul t * CT ABDOMEN/PELVIS WITHOUT CONTRAST (11/17/2024 2:01 PM EDT) Anatomical Region Laterality Modality Abdomen, Pelvis Computed Tomogra phy 11/17/2024 3:00 PM EDT Impressions 11/17/2024 3:10 PM EDT 1. No acute abdominopelvic process. 2. No CT findings directly correlating to the reported history of periumbilical pain. Specifically, no hernia or hematoma. Narrative 11/17/2024 3:[address] ABDOMEN/PELVIS WITHOUT CONTRAST Referring clinician's provided indication for this examination in Epic: *Other Anomalies Or Syndromes; Pt with palpable nodule with intermittent pain around the umbilicus- eval for hernia vs. RSH vs. source of nodule. (RSH refers to rectus sheath hematoma). TECHNIQUE: Multidetector-row CT of the abdomen and pelvis was performed without intravenous contrast using tailored dose modulation techniques. Images were reconstructed in the axial, coronal, and sagittal planes. COMPARISON: None ABSENCE OF INTRAVENOUS CONTRAST DECREASES SENSITIVITY FOR DETECTION OF FOCAL LESIONS AND VASCULAR PATHOLOGY. FINDINGS: Lower Chest: Please refer to the separate chest CT dictation regarding intrathoracic findings. Liver: The liver density is within normal limits. No concerning hepatic lesion is detected, within noncontrast limitations. Biliary: There is no intra or extrahepatic bile duct dilation. There is no gallbladder dilation or wall thickening. No radiopaque ductal stones are seen. Spleen: The spleen size is normal. Pancreas: The pancreas is atrophic, without duct dilation. Adrenal Glands: The adrenal glands are normal in size and shape. Kidneys/Ureters: The kidneys are atrophic, without hydronephrosis. No urinary tract stone is seen. Bowel: The stomach and intra-abdominal and intrapelvic loops of small and large bowel are normal in caliber. There is a moderate amount of colonic stool. Peritoneum/Retroperitoneum: There is no ascites or free air. Lymph Nodes: There is no mesenteric or retroperitoneal lymphadenopathy. Pelvic Organs/Bladder: The bladder is collapsed, without focal wall thickening. The uterus is anteverted and normal in size. No concerning adnexal lesions are detected. Vessels: The abdominal aorta and iliac branches demonstrate mild atherosclerotic calcifications, without aneurysm. Bones/Soft Tissues: There are no osseous lesions concerning for malignancy or infection. Procedure Note Aly Mosher MD, PhD - 11/17/2024 CT ABDOMEN/PELVIS WITHOUT CONTRAST Referring clinician's provided indication for this examination in Epic:*Other Anomalies Or Syndromes; Pt with palpable nodule with intermittentpain around the umbilicus- eval for hernia vs. RSH vs. source of nodule. (RSH refers to rectus sheath hematoma). TECHNIQUE: Multidetector-row CT of the abdomen and pelvis was performedwithout intravenous contrast using tailored dose modulation techniques.Images were reconstructed in the axial, coronal, and sagittal planes. COMPARISON: None ABSENCE OF INTRAVENOUS CONTRAST DECREASES SENSITIVITY FOR DETECTION OFFOCAL LESIONS AND VASCULAR PATHOLOGY. FINDINGS: Lower Chest: Please refer to the separate chest CT dictation regardingintrathoracic findings. Liver: The liver density is within normal limits. No concerning hepaticlesion is detected, within noncontrast limitations. Biliary: There is no intra or extrahepatic bile duct dilation. There is nogallbladder dilation or wall thickening. No radiopaque ductal stones areseen. Spleen: The spleen size is normal. Pancreas: The pancreas is atrophic, without duct dilation. Adrenal Glands: The adrenal glands are normal in size and shape. Kidneys/Ureters: The kidneys are atrophic, without hydronephrosis. Nourinary tract stone is seen. Bowel: The stomach and intra-abdominal and intrapelvic loops of small andlarge bowel are normal in caliber. There is a moderate amount of colonicstool. Peritoneum/Retroperitoneum: There is no ascites or free air. Lymph Nodes: There is no mesenteric or retroperitoneal lymphadenopathy. Pelvic Organs/Bladder: The bladder is collapsed, without focal wallthickening. The uterus is anteverted and normal in size. No concerningadnexal lesions are detected. Vessels: The abdominal aorta and iliac branches demonstrate mildatherosclerotic calcifications, without aneurysm. Bones/Soft Tissues: There are no osseous lesions concerning for malignancyor infection. IMPRESSION: 1. No acute abdominopelvic process. 2. No CT findings directly correlating to the reported history ofperiumbilical pain. Specifically, no hernia or hematoma. us Minh Bonds MD IMG CT ABD/PELVIS Final Res ult * TTE LIMITED W/ AGITATED SALINE AND LIMITED DOPPLER (11/17/2024 9:47 AM EDT) Body Surface Area 1.7 m2 Height 165 cm Weight 61.50 kg Right Ventricle Peak Systolic Pressure 46 mmHg Tricuspid Valve Peak Velocity 3.0 m/s Right Atrium Pressure Estimated 10 mmHg Right Ventricle to Right Atrium Pressure Gradient 36 mmHg Right Ventricle Peak Systolic Pressure (Assuming RAP 10) 46 mmHg MGB CV ECHO TV RVSP (ASSUMING RAP OF 5) 41 mmHg RVSP (Exclusive of RAP) 36 mmHg Anatomical Region Laterality Modality Heart Ultrasound Narrative 11/17/2024 4:28 PM EDT Limited echocardiogram: Agitated saline contrast study. There are rare late-appearing contrast bubbles in the left heart with Valsalva maneuver but not at rest. The late appearance of these bubbles in the left heart is consistent with intrapulmonary shunting; however, their appearance only with Valsalva maneuver suggests the presence of a patent foramen ovale. On technically difficult spectral Doppler interrogation with the agitated saline contrast study and with an incomplete Doppler envelope, the RV systolic pressure was calculated at at least 46 mmHg (using TR peak velocity of 3.0 m/s and assuming an RA pressure of 10 mmHg). Compared to prior TTE study (direct image comparison) on 11/12/2024, an agitated saline contrast study is performed on the present limited study and is positive for evidence of a [id number] shunt. Tricuspid Valve The severity of tricuspid regurgitation was not assessed by color Doppler on this limited study. On technically difficult spectral Doppler interrogation with the agitated saline contrast study and with an incomplete Doppler envelope, the RV systolic pressure was calculated at at least 46 mmHg (using TR peak velocity of 3.0 m/s and assuming an RA pressure of 10 mmHg). General Findings The image quality was fair (3). This is a question-limited echocardiogram to assess Bubble Study for shunt assessment, hence all structures may not be evaluated or documented. Agitated saline was administered during the study. Comparison Findings Compared to prior TTE study (direct image comparison) on 11/12/2024, an agitated saline contrast study is performed on the present limited study and is positive for evidence of a ayyds-lu-ptzp shunt. IAS/IVS There are rare late-appearing contrast bubbles in the left heart with Valsalva maneuver but not at rest. The late appearance of these bubbles in the left heart is consistent with intrapulmonary shunting; however, their appearance only with Valsalva maneuver suggests the presence of a patent foramen ovale. us Minh Bonds MD CV ECHO ORDERABLES Final Re sult * Hepatitis C viral load (PCR) (11/17/2024 5:58 AM EDT) HCV RNA PCR Not Detected Not Detected IU/mL [facility] Comment: (NOTE) Assay Range: 15-100,000,000 IU/ml In rare instances, there might be a 1.0 - 1.5 log increase measured viral load observed in individuals with genotype 3a and 4. Please refer any questions to the Molecular Diagnostics Lab at extension [phone]. This is a quantitative assay utilizing real-time PCR technology. Results of this test may be clinically useful in monitoring a patient's clinical course or response to antiviral therapy but should not be used to make the diagnosis of HCV infection. A test result of less than the lower limit of quantification (LLoQ)(<15 IU/mL) should be interpreted as HCV RNA not quantifiable but does not exclude the diagnosis of HCV infection. Blood (Blood) 11/17/2024 5:5 8 AM EDT 11/17/2024 6:15 AM EDT us Minh Bonds MD NON CULTURE MICROBIOLOGY Fi nal Result Performing Organization Address [facility] Co de Phone Number [address] [address] * Type and Screen (ABO,Rh,Antibody Screen) (11/17/2024 5:58 AM EDT) Expiration Date of Sample 11/20/2024 11:59 PM [facility] ABO O 11/17/2024 6:55 AM EDT [facility] Rh Positive 11/17/2024 6:55 AM EDT [facility] Resulting Agency [facility] Antibody Screen Negative 11/17/2024 7:22 AM EDT [facility] Blood 11/17/2024 5:58 AM EDT 11/17/2024 6:11 AM EDT us Minh Bonds MD BLOOD BANK TEST ORDERABLES Final Result Performing Organization Address [facility] Co de Phone Number [address] [address] * Scl-70 antibody (11/17/2024 5:55 AM EDT) ANTI-SCL-70 ANTIBODY 4.71 0.00 - 19.99 [facility] SCL 70 INTERP Negative Negative [facility] Blood 11/17/2024 5:55 AM EDT 11/17/2024 6:12 AM EDT us Minh Bonds MD LAB BLOOD ORDERABLES Final Result Performing Organization Address City/[facility]/ZIP Co de Phone Number [address] [address] * Double stranded DNA antibodies (11/17/2024 5:55 AM EDT) ANTI DSDNA ANTIBODY Negative at 1:10 [facility] Comment: Christina Roman M.D., Director Clinical Immunology Laboratory [id number] Normal: Negative at 1:10 To interpret a negative test for anti-pauma or double stranded DNA antibodies in a patient suspected of having systemic lupus erythematosus, the following limitation should be noted. Anti-double stranded DNA antibodies are usually detected in SLE patients with active disease, especially in those with active renal disease. Anti-DNA antibodies are usually not detected in SLE patients with spontaneous or drug-induced remissions. Blood 11/17/2024 5:55 AM EDT 11/17/2024 6:12 AM EDT Minh Bonds MD LAB BLOOD ORDERABLES Final Result Performing Organization Address [facility] Co de Phone Number [address] [address] * (ABNORMAL) Complement C3 (11/17/2024 5:55 AM EDT) Pathologist [facility] C3 65(L) 81 - 157 mg/dl [facility] Blood 11/17/2024 5:55 AM EDT 11/17/2024 6:19 AM EDT Minh Bonds MD LAB BLOOD ORDERABLES Final Result Performing Organization Address [facility] Co de Phone Number [address] [address] * Complement C4 (11/17/2024 5:55 AM EDT) Pathologist [facility] C4 22 12 - 39 mg/dL [facility] Blood 11/17/2024 5:55 AM EDT 11/17/2024 6:19 AM EDT Minh Bonds MD LAB BLOOD ORDERABLES Final Result Performing Organization Address [facility] Co de Phone Number [address] [address] * Antinuclear antibody (MALLY) (11/17/2024 5:55 AM EDT) MALLY Result Negative Negative [facility] Comment: Christina Roman M.D., Director Clinical Immunology Laboratory [id number] Method is indirect immunofluorescence assay (IFA) with digital and/or optical microscopy evaluation. Blood 11/17/2024 5:55 AM EDT 11/17/2024 6:12 AM EDT Minh Bonds MD LAB BLOOD ORDERABLES Final Result Performing Organization Address [facility] de Phone Number [address] [address] * (ABNORMAL) NT-proBNP (11/17/2024 5:55 AM EDT) NT-PROBNP 9,818(H) 0 - 450 pg/mL [facility] Comment: Reference Range: Age <50 years: 0-450 pg/ml Age 50-75 years: 0-900 pg/ml Age >75 years: 0-1800 pg/ml Among patients with dyspnea, NT-proBNP is highly sensitive for the detection of acute congestive heart failure. In addition, a NT-proBNP <300 pg/ml effectively rules out acute congestive heart failure, with 99% negative predictive value. Knowledge of each individual patient's NT-proBNP range may be more useful than using similar cut-points for every patient. Marked elevations in NT-proBNP levels may be observed in states other than left ventricular congestive heart failure, including: acute coronary syndromes, right heart strain/failure (including pulmonary embolism and cor pulmonae), critical illness, renal failure, atrial fibrillation, as well as advanced age. Falsely low NT-proBNP in congestive heart failure patients may be observed with increasing body-mass index. Blood 11/17/2024 5:55 AM EDT 11/17/2024 6:12 AM EDT Minh Bonds MD LAB BLOOD ORDERABLES Final Result Performing Organization Address [facility] Co de Phone Number [address] [address] * XR SPINE ENTIRE SURVEY 4 OR 5 VIEWS (11/16/2024 1:20 PM EDT) Anatomical Region Laterality Modality C-spine, T-spine, L-spine Comput ed Radiography 11/16/2024 1:23 PM EDT Impressions 11/16/2024 1:27 PM EDT No acute osseous abnormality in the thoracic or lumbosacral spine. Minimal degenerative change. Narrative 11/16/2024 1:27 PM EDT XR SPINE ENTIRE SURVEY 4 OR 5 VIEWS Referring clinician's provided indication for this examination in Epic: Pain COMPARISON: No relevant comparison. FINDINGS: Dialysis catheter tip terminates in the right atrium. Clips in the region of the thyroid. Normal alignment and vertebral body height in the thoracic and lumbosacral spine. Limited assessment of the cervical spine. Minimal degenerative change in the lower thoracic spine and lower lumbosacral spine. Sacrum and iliac bones are obscured by overlying bowel gas. Procedure Note Bijan Rene MD - 11/16/2024 XR SPINE ENTIRE SURVEY 4 OR 5 VIEWS Referring clinician's provided indication for this examination in Epic:Pain COMPARISON: No relevant comparison. FINDINGS: Dialysis catheter tip terminates in the right atrium. Clips in the regionof the thyroid. Normal alignment and vertebral body height in the thoracicand lumbosacral spine. Limited assessment of the cervical spine. Minimaldegenerative change in the lower thoracic spine and lower lumbosacralspine. Sacrum and iliac bones are obscured by overlying bowel gas. IMPRESSION: No acute osseous abnormality in the thoracic or lumbosacral spine. Minimaldegenerative change. us Minh Bonds MD IMG XR SPINE Final Resul t * Lab Add On: phos (11/16/2024 8:08 AM EDT) Only the most recent of7 resultswithin the time period is included. TEST REQUESTED [facility] Comments (Chemistry) ADD ON COMPLETE. [facility] Comment:SEE [id number] 11/16/2024 8:08 AM EDT 11/16/2024 10:05 AM EDT us Minh Bonds MD LAB BLOOD ORDERABLES Final Result [address] [address] * RIGHT HEART CATHETERIZATION (11/15/2024 6:20 PM EDT) Anatomical Region Laterality Modality X-Ray Angiograph y 11/15/2024 6:20 PM EDT Narrative 11/23/2024 9:41 PM EDT Cardiac Catheterization Report [facility] CARDIAC CATHETERIZATION LABORATORY FINAL REPORT PATIENT NAME:HIMA MORRIS AGE: 39 CASE DATE/TIME: 11/15/2024 05:58 PM DESTINATION: G7 DIAGNOSTIC ATTENDING MD: Trent Roche M.D. DIAGNOSTIC FELLOW MD: Laureano Jiménez MD PRELIMINARY DIAGNOSES: Right heart failure, unspecified Cardiomyopathy, unspecified FINAL DIAGNOSES: Cardiomyopathy, unspecified DIAGNOSTIC SUMMARY: Right heart catheterization revealed: - right atrium 12mmHg - right ventricle 68/12mmHg - pulmonary artery 60/24mmHg, mean 35mmHg - pulmonary capillary wedge 14mmHg - cardiac output 7.0L/min, CI 4.18L/min/m2 by thermodilution method (substantial variability in measurements with six measurements averaged - cardiac output 3.9 L/min, CI 2.3 L/min/m2 by Jonathon equation IVC sat 62.9% PA sat 60.9% PATIENT CONDITION, PLAN AND RECOMMENDATIONS: 1. 8F right common femoral venous sheath removed with manual compression. 2. Further evaluation and management per Dr. Guallpa and HF/Transplant service. PROCEDURES: Right Heart Catheterization including oximetry and CO measurement Moderate sedation provided by the same physician performing procedure, requiring the presence of an independent trained observer to assist in the monitoring of the patients LOC and physiol status; initial 15 minutes, patient 5 years or older Moderate sedation provided by the same physician performing procedure, requiring the presence of an independent trained observer to assist in the monitoring of the patients LOC and physiol status; initial 15 minutes, patient 5 years or older DIAGNOSTIC TECHNIQUE: Under ultrasound and fluoroscopic guidance and lidocaine hcl 20 mg/ml (2 %) injection solution local anesthesia 8F introducer was placed in the right femoral vein using a 5F micropuncture access kit and maintained usual fashion. A 7 F balloon tipped catheter was introduced via the venous sheath, the balloon was inflated and catheter was advanced through the right heart chambers into the pulmonary capillary wedge position. Right sided pressures were obtained and recorded. Cardiac output was measured using both Thermodilution and Jonathon method. Following the procedure, the sheath was removed. HEMODYNAMICS: STATE: Rest Jonathon Cardiac Output (l/min):Rest; CI (l/min/m2):2.39 Thermodilution Cardiac Output (l/min):7; CI (l/min/m2):4.19 PVR (dyn*s/cm5):60.2 [place] Units:0.75 Heart rate (bpm):61 PRESSURES(mmHg): RA 13 / 14 / 9 RV 64 / 10 / 18 PA 35 / 1 / 15 PCW 16 / 15 / 12 OXIMETRY: IVC (O2 Cont./Sat.): / 62.9 PA (O2 Cont./Sat.): 76.3 / 60.9 AO (O2 Cont./Sat.):117.1 / 93.0 EQUIPMENT: [employer], S-Blake Micropuncture, Micropuncture Access, 5F, 15 Nutritionix., [place], Sheath, 8F, 10 ICU MEDICALI [facility] MEDICAL, TD Thermodilution Catheter MULTIFLEX PENTALUMEN, [place] Catheter, 8F, 110 [employer], BLAKE Stiffened Dilator, Sheath, 4F, 10 MEDICATIONS: FENTANYL (PF) 50 MCG/ML INJECTION SOLUTION : 25 mcg Intravenous FENTANYL (PF) 50 MCG/ML INJECTION SOLUTION : 25 mcg Intravenous FENTANYL (PF) 50 MCG/ML INJECTION SOLUTION : 25 mcg Intravenous MIDAZOLAM (PF) 1 MG/ML INJECTION SOLUTION : 1 mg Intravenous MIDAZOLAM (PF) 1 MG/ML INJECTION SOLUTION : 0.5 mg Intravenous LIDOCAINE HCL 20 MG/ML (2 %) INJECTION SOLUTION : 5 ml Subcutaneous CASE DURATION: 21 minutes VASCULAR ACCESS: Routine ANESTHETIC: Local and conscious sedation X-RAY DOSE: Fluoro Time: 2 min. Kerma Area Product: 0.9 (Gy.cm2) Reference Air Kerma: 4.7 (mGy) The procedural team has confirmed that the Time-Out has occurred. Anesthetic: Local and conscious sedation Estimated Blood loss: <50 cc Specimens: None Procedural findings were communicated to: MD Trent Levin M.D. was personally present during the entire procedure. I was present from the first injection of medication for sedation and continuously for the administration and monitoring of sedation for 30 minutes. The sedation level was moderate. The patients post-sedation status at the end of the procedure was stable. EMERGENCY CONTACTS: Trent Roche M.D. Pager: [phone] This report has been electronically signed by Dr. Trent Roche M.D., Date: 11/23/2024 9:41:35 PM. This is a Final Report. Preliminary report was initially submitted on 11/15/2024 6:38:41 PM by Trent Roche M.D.. Reference Ranges: All Hemodynamics pressure measurements are in mm Hg Oxygen saturation - Arterial: 90-100% - Mixed venous: 60-80% ACT - 170-230 sec for patients on G2b-3a inhibitors - 200-240 sec for patients off G2b-3a inhibitors Finger stick glucose - Adult fastin-140 mg/dl - Non-fastin-200 mg/dl - Critical values: <40 or >500 mg/dl Procedure Note Trent Roche MD - 11/23/2024 Cardiac Catheterization Report [facility] CARDIAC CATHETERIZATION LABORATORY FINAL REPORT PATIENT NAME:HIMA MORRIS AGE: 39 CASE DATE/TIME: 11/15/2024 05:58 PM DESTINATION: G7 DIAGNOSTIC ATTENDING MD: Trent Roche M.D. DIAGNOSTIC FELLOW MD: Laureano Jiménez MD PRELIMINARY DIAGNOSES: Right heart failure, unspecified Cardiomyopathy, unspecified FINAL DIAGNOSES: Cardiomyopathy, unspecified DIAGNOSTIC SUMMARY: Right heart catheterization revealed: - right atrium 12mmHg - right ventricle 68/12mmHg - pulmonary artery 60/24mmHg, mean 35mmHg - pulmonary capillary wedge 14mmHg - cardiac output 7.0L/min, CI 4.18L/min/m2 by thermodilution method (substantial variability in measurements with six measurements averaged - cardiac output 3.9 L/min, CI 2.3 L/min/m2 by Jonathon equation IVC sat 62.9% PA sat 60.9% PATIENT CONDITION, PLAN AND RECOMMENDATIONS: 1. 8F right common femoral venous sheath removed with manual compression. 2. Further evaluation and management per Dr. Guallpa and HF/Transplant service. PROCEDURES: Right Heart Catheterization including oximetry and CO measurement Moderate sedation provided by the same physician performing procedure, requiring the presence of an independent trained observer to assist inthe monitoring of the patients LOC and physiol status; initial 15 minutes,patient 5 years or older Moderate sedation provided by the same physician performing procedure, requiring the presence of an independent trained observer to assist inthe monitoring of the patients LOC and physiol status; initial 15 minutes,patient 5 years or older DIAGNOSTIC TECHNIQUE: Under ultrasound and fluoroscopic guidance and lidocaine hcl 20 mg/ml (2 %) injection solution local anesthesia 8F introducer was placed in theright femoral vein using a 5F micropuncture access kit and maintained usual fashion. A 7 F balloon tipped catheter was introduced via the venous sheath, the balloon was inflated and catheter was advanced through the right heart chambers into the pulmonary capillary wedge position. Right sided pressures were obtained and recorded. Cardiac output was measured using both Thermodilution and Jonathon method. Following the procedure, the sheath was removed. HEMODYNAMICS: STATE: Rest Jonathon Cardiac Output (l/min):Rest; CI (l/min/m2):2.39 Thermodilution Cardiac Output (l/min):7; CI (l/min/m2):4.19 PVR (dyn*s/cm5):60.2 [place]illan Units:0.75 Heart rate (bpm):61 PRESSURES(mmHg): RA 13 / 14 / 9 RV 64 / 10 / 18 PA 35 / 1 / 15 PCW 16 / 15 / 12 OXIMETRY: IVC (O2 Cont./Sat.): / 62.9 PA (O2 Cont./Sat.): 76.3 / 60.9 AO (O2 Cont./Sat.):117.1 / 93.0 EQUIPMENT: [employer], S-Blake Micropuncture, Micropuncture Access, 5F, 15 [employer]., [place], Sheath, 8F, 10 ICU MEDICALI [facility] ICU MEDICAL, TD Thermodilution CatheterMULTIFLEX PENTALUMEN, [place] Catheter, 8F, 110 [facility] Medical, BLAKE Stiffened Dilator, [place]ath, 4F, 10 MEDICATIONS: FENTANYL (PF) 50 MCG/ML INJECTION SOLUTION : 25 mcg Intravenous FENTANYL (PF) 50 MCG/ML INJECTION SOLUTION : 25 mcg Intravenous FENTANYL (PF) 50 MCG/ML INJECTION SOLUTION : 25 mcg Intravenous MIDAZOLAM (PF) 1 MG/ML INJECTION SOLUTION : 1 mg Intravenous MIDAZOLAM (PF) 1 MG/ML INJECTION SOLUTION : 0.5 mg Intravenous LIDOCAINE HCL 20 MG/ML (2 %) INJECTION SOLUTION : 5 ml Subcutaneous CASE DURATION: 21 minutes VASCULAR ACCESS: Routine ANESTHETIC: Local and conscious sedation X-RAY DOSE: Fluoro Time: 2 min. Kerma Area Product: 0.9 (Gy.cm2) Reference Air Kerma: 4.7 (mGy) The procedural team has confirmed that the Time-Out has occurred. Anesthetic: Local and conscious sedation Estimated Blood loss: <50 cc Specimens: None Procedural findings were communicated to: MD Trent Levin M.D. was personally present during the entire procedure. I was present from the first injection of medication forsedation and continuously for the administration and monitoring of sedation for30 minutes. The sedation level was moderate. The patients post-sedation status at the end of the procedure was stable. EMERGENCY CONTACTS: Trent Roche M.D. Pager: [phone] This report has been electronically signed by Dr. Trent Roche M.D.,Date: 11/23/2024 9:41:35 PM. This is a Final Report. Preliminary report was initially submitted on11/15/2024 6:38:41 PM by Trent Roche M.D.. Reference Ranges: All Hemodynamics pressure measurements are in mm Hg Oxygen saturation - Arterial: 90-100% - Mixed venous: 60-80% ACT - 170-230 sec for patients on G2b-3a inhibitors - 200-240 sec for patients off G2b-3a inhibitors Finger stick glucose - Adult fastin-140 mg/dl - Non-fastin-200 mg/dl - Critical values: <40 or >500 mg/dl Jenny Ramirez MD, PhD CV CARDIAC CATH ORDERABL ES Final Result * (ABNORMAL) Hepatitis C antibody, qualitative (11/15/2024 12:30 PM EDT) Only the most recent of3 resultswithin the time period is included. Pathologist [facility] HCV ANTIBODY Positive( A) Negative [facility] Comment:Presumptive evidence of antibodies to HCV. Blood 11/15/2024 12:3 0 PM EDT 11/15/2024 12:53 PM EDT Result [facility] Angelita Qureshi MD LAB BLOOD ORDERABLES Final Re sult Performing Organization Address [facility] Co de Phone Number [address] [address] * Hepatitis B core antibody, total (11/15/2024 12:30 PM EDT) [facility] HEP B CORE AB, TOT Negative Negative [facility] Comment:A nonreactive final interpretation indicates that anti-HBc antibodies were not detected in the sample. It is possible that the individual is not infected with HBV. Blood 11/15/2024 12:3 0 PM EDT 11/15/2024 12:53 PM EDT Result [facility] Angelita Qureshi MD LAB BLOOD ORDERABLES Final Re sult Performing Organization Address City/[facility]/ZIP Co de Phone Number [address] [address] * Hepatitis B viral DNA PCR, Quantitative (11/15/2024 12:30 PM EDT) [facility] HBV DNA, QUANTITATIVE Not Detected Not Detected IU/mL [facility] Comment: (NOTE) Assay Range: 10 - 1,000,000,000 IU/mL Validated against the 2nd World Health Organization (WHO) standards. Please refer any questions to the Molecular Diagnostics Lab at [phone]. This test can be used to measure HBV DNA levels at baseline and during treatment to aid in assessing response to treatment. A test result of less than the lower limit of quantification (LLoQ) (<10 IU/mL) should be interpreted as HBV DNA not quantifiable. Blood (Blood) 11/15/2024 12: 30 PM EDT 11/15/2024 12:54 PM EDT Result [facility] Angelita Qureshi MD NON CULTURE MICROBIOLOGY Samira l Result Performing Organization Address [facility] Co de Phone Number [address] [address] * Hepatitis B surface antibody (11/15/2024 12:30 PM EDT) HBV SURFACE AB,QUANT 70.08 mIU/mL [facility] Comment:Results less than 12 .00 mIU/mL are not consistent with protective immunity. Results of 12.00 mIU/mL or more indicate protective immunity. HBV SURFACE AB,QUAL Positive [facility] Comment:Patient is considere d immune to HBV infection. Blood 11/15/2024 12:3 0 PM EDT 11/15/2024 12:53 PM EDT Angelita Qureshi MD LAB BLOOD ORDERABLES Final Re sult Performing Organization Address City/[facility] Co de Phone Number [address] [address] * Hepatitis B surface antigen (11/15/2024 12:30 PM EDT) HBV SURFACE ANTIGEN Negative Negative [facility] Blood 11/15/2024 12:3 0 PM EDT 11/15/2024 12:53 PM EDT us Angelita Qureshi MD LAB BLOOD ORDERABLES Final Re sult Performing Organization Address [facility] Co de Phone Number [address] [address] * HCG (Quantitative, Blood) (11/15/2024 6:27 AM EDT) Only the most recent of6 resultswithin the time period is included. HCG (Quantitative) <6 <6 IU/L [facility] Comment: NON-: <6 BORDERLINE: 6-15 11/15/2024 6:27 AM EDT 11/15/2024 11:36 AM EDT Jones Cummins MD LAB BLOOD ORDERABLES Final Re sult Performing Organization Address [facility] Co de Phone Number [address] [address] * Lactate (blood gas) (11/13/2024 7:24 AM EDT) Lactate, blood 1.5 0.5 - 2.0 mmol/L [facility] Blood 11/13/2024 7:24 AM EDT 11/13/2024 7:40 AM EDT Minh Bonds MD LAB BLOOD ORDERABLES Final Result Performing Organization Address [facility] de Phone Number [address] [address] * (ABNORMAL) Venous blood gas (11/13/2024 7:24 AM EDT) FIO2 UNSPEC. FIO2/L min [facility] PH 7.28(L) 7.30 - 7.40 [facility] PCO2 55(H) 38 - 50 mm[Hg] [facility] PO2 47 35 - 50 mm[Hg] [facility] Base Excess, unspecified NEG 0.0 - 3.0 mmol/L [facility] Comment:1.7NEG HCO3, unspecified 26 24 - 30 mmol/L [facility] Blood 11/13/2024 7:24 AM EDT 11/13/2024 7:40 AM EDT Minh Bonds MD LAB BLOOD ORDERABLES Final Result Performing Organization Address City/[facility]/ZIP Co de Phone Number [address] [address] * (ABNORMAL) Troponin (11/13/2024 5:44 AM EDT) Only the most recent of4 resultswithin the time period is included. Troponin-T, HS Gen5 127(H) 0 - 9 ng/L [facility] Comment:Hemolyzed specimen. Troponin T result may be falsely low. 11/13/2024 5:44 AM EDT 11/13/2024 6:15 AM EDT us Jones Cummins MD LAB BLOOD ORDERABLES Final Re sult Performing Organization Address [facility] Co de Phone Number [address] [address] * XR Chest Portable (11/12/2024 5:59 PM EDT) Anatomical Region Laterality Modality Chest Computed Radiogr aphy 11/13/2024 9:32 AM EDT Impressions 11/13/2024 9:36 AM EDT Subtle perihilar opacity may represent atelectasis or mild pulmonary edema. No pneumonia. No pneumothorax. Narrative 11/13/2024 9:36 AM EDT XR CHEST PORTABLE Referring clinician's provided indication for this examination in [facility]: Pain; Pt with ESRD on HD and hyperK s/p insulin now hypoglycemic with chest pain. COMPARISON: XR CHEST PORTABLE FINDINGS: Devices/Tubes/Lines: Left IJ dual-lumen catheter terminates at cavoatrial junction region. Lungs: Minimal perihilar opacity. No pneumonia. Pleura: No pleural effusion or pneumothorax. Heart/Mediastinum: Unchanged Bones/Soft Tissues: No significant skeletal abnormality. Procedure Note Sancho Ryan MD - 11/13/2024 XR CHEST PORTABLE Referring clinician's provided indication for this examination in [facility]:Pain; Pt with ESRD on HD and hyperK s/p insulin now hypoglycemic withchest pain. COMPARISON: XR CHEST PORTABLE FINDINGS: Devices/Tubes/Lines: Left IJ dual-lumen catheter terminates at cavoatrialjunction region. Lungs: Minimal perihilar opacity. No pneumonia. Pleura: No pleural effusion or pneumothorax. Heart/Mediastinum: Unchanged Bones/Soft Tissues: No significant skeletal abnormality. IMPRESSION: Subtle perihilar opacity may represent atelectasis or mild pulmonaryedema. No pneumonia. No pneumothorax. Minh Bonds MD IMG XR CHEST Final Resul t * (ABNORMAL) VENOUS BLOOD GAS PLUS (11/12/2024 5:40 PM EDT) FIO2 UNSPEC. FIO2/L min [facility] PH 7.23(L) 7.30 - 7.40 [facility] PCO2 66(H) 38 - 50 mm[Hg] [facility] PO2 29(L) 35 - 50 mm[Hg] [facility] Base Excess, unspecified NEG 0.0 - 3.0 mmol/L [facility] Comment:1.6NEG HCO3, unspecified 27 24 - 30 mmol/L [facility] SODIUM 136 135 - 145 mmol/L [facility] POTASSIUM 4.2 3.5 - 5.0 mmol/L [facility] IONIZED CALCIUM 1.27 1.14 - 1.30 mmol/L [facility] Glucose, whole bld 97 70 - 110 mg/dL [facility] HGB (BG) 12.2 12.0 - 16.0 g/dl [facility] SO2-VENOUS (SO2, venous) 39.2(L) 60.0 - 85.0 % [facility] Comment:QUANTITY NOT SUFFICI ENT TO VERIFY Blood 11/12/2024 5:40 PM EDT 11/12/2024 5:52 PM EDT Minh Bonds MD LAB BLOOD ORDERABLES Final Result [facility] [address] [place] [address] * PTT (11/12/2024 5:40 PM EDT) APTT 34.6 24.0 - 37.5 sec [facility] Comment:Check MAR for the ta rget range that is ordered for your patient. Blood 11/12/2024 5:40 PM EDT 11/12/2024 5:51 PM EDT us Minh Bonds MD LAB BLOOD ORDERABLES Final Result Performing Organization Address [facility]/ZIP Co de Phone Number [address] [address] * PT-INR (11/12/2024 5:40 PM EDT) PT 11.9 10.0 - 13.0 sec [facility] INR 1.0 0.9 - 1.1 [facility] Blood 11/12/2024 5:40 PM EDT 11/12/2024 5:51 PM EDT Result Edith Bonds MD LAB BLOOD ORDERABLES Final Result Performing Organization Address [facility] Co de Phone Number [address] [address] * Fibrinogen (11/12/2024 5:40 PM EDT) Only the most recent of2 resultswithin the time period is included. FIBRINOGEN 271 200 - 400 mg/dL [facility] Blood 11/12/2024 5:40 PM EDT 11/12/2024 5:51 PM EDT Result Edith Bonds MD LAB BLOOD ORDERABLES Final Result Performing Organization Address [facility] Co de Phone Number [address] [address] * (ABNORMAL) D-dimer (11/12/2024 5:40 PM EDT) D-DIMER 2,207(H) <500 ng/mL [facility] Comment:A negative d-dimer r esult (at a cut off of 500 ng/mL FEU) when combined with a clinical assessment of low pretest probability has been shown to have a high negative predictive value for DVT or PE. Clinical correlation is required. Blood 11/12/2024 5:40 PM EDT 11/12/2024 5:51 PM EDT us Minh Bonds MD LAB BLOOD ORDERABLES Final Result Performing Organization Address City/[facility] Co de Phone Number [address] [address] * Lactate (11/12/2024 5:40 PM EDT) LACTIC ACID (MMOL/L) 1.9 0.5 - 2.0 mmol/L [facility] Blood 11/12/2024 5:40 PM EDT 11/12/2024 5:52 PM EDT Minh Bonds MD LAB BLOOD ORDERABLES Final Result Performing Organization Address [facility] de Phone Number [address] [address] * ECG 12-LEAD (11/12/2024 5:30 PM EDT) Only the most recent of2 resultswithin the time period is included. Systolic Blood Pressure [facility] Diastolic Blood Pressure [facility] Ventricular Rate EKG/MIN 58 BPM [facility] Atrial Rate 58 BPM [facility] PA Interval 186 ms [facility] QRS Duration 100 ms [facility] QT Interval 426 ms [facility] QTC Interval 418 ms [facility] P [place] 68 degrees [facility] R Wave [place] 40 degrees [facility] T Wave [place] 145 degrees [facility] 11/12/2024 5:30 PM EDT 11/14/2024 11:33 AM EDT Narrative [facility] - 11/14/2024 11:33 AM EDT LOC: BG7 DX: ELECTROLYTE ABNORMALITIES REF: Becki BONDS MILD DIFFUSE ST SEGMENT AND T WAVE CHANGES ; SUGGEST CLINICAL CORRELATION SINUS BRADYCARDIA POOR R WAVE PROGRESSION WHEN COMPARED WITH ECG OF 12-Nov-2024 17:29, NO SIGNIFICANT CHANGE WAS FOUND us Minh Bonds MD ECG ORDERABLES Final Resul t Performing Organization Address City/[facility] Co de Phone Number [email or web address] * TTE COMPREHENSIVE (11/12/2024 3:42 PM EDT) Body Surface Area 1.7 m2 Left Ventricle Internal Diameter End Diastole 53 37 - 52 mm Interventricular Septum Thickness 13 6 - 11 mm Left Ventricle Internal Diameter End Systole 37 <35 mm Left Ventricular Posterior Wall Thickness 13 6 - 11 mm Raw LV EF% 51 % Left Atrium Dimension Anterior-Posterior 42 15 - 40 mm Relative Wall Thickness 0.49 0.22 - 0.42 Left Ventricle indexed to BSA 168.8 g/m2 Left Ventricular Apical Contribution 10 Ejection Fraction 61 50 - 75 % Aortic Sinus Diameter 33 <40 mm Ascending Aorta Diameter 32 <36 mm Left Atrial Volume Index 56 16 - 34 mL/m2 Right Ventricle Basal Diameter 45 25 - 41 mm Left Atrial Volume 96 mL Right Atrium Dimension Superior-Inferior 60 mm Right Atrium Index Superior-Inferior 35 19 - 30 mm/m2 Right Atrium Dimension Medial-Lateral 54 mm Right Atrium Dimension Medial-Lateral 32 13 - 25 mm/m2 Aortic Valve Sinus Index by BSA 19 mm/m2 Ascending Aorta Index 19 mm/m2 Tricuspid Valve Peak Velocity 3.2 m/s Right Ventricle to Right Atrium Pressure Gradient 41 mmHg Right Ventricle Peak Systolic Pressure (Assuming RAP 10) 51 mmHg MGB CV ECHO TV RVSP (ASSUMING RAP OF 5) 46 mmHg RVSP (Exclusive of RAP) 41 mmHg Ascending Aorta Index 19 mm Aortic Sinus Index 19 mm Ascending Aorta Diameter 19 mm Aortic Valve Sinus Index 1 19 19 - 27 mm AO ASC DIAM BSA INDEX 18.82 Right Atrium Dimension Medial-Lateral 32 mm/m2 Right Atrium Index Superior-Inferior 35 mm/m2 Right Ventricle TAPSE 16 >=17 mm Right Ventricle Pulse Doppler S Wave 11.0 >=9.5 cm/s Anatomical Region Laterality Modality Heart Ultrasound Narrative 11/12/2024 6:55 PM EDT LV is dilated with symmetric LVH. Systolic function is normal, EF 61%. RV is dilated with normal function. Biatrial enlargement. Moderate eccentric TR. Elevated RVSP 51 mmHg. Left Ventricle The left ventricle is dilated. There is symmetric hypertrophy. There is normal left ventricular systolic function. The LV ejection fraction is 61% (calculated via the single dimension method). There are no wall motion abnormalities. Right Ventricle The right ventricle is dilated. There is right ventricular hypertrophy. The RV basal dimension is 45 mm (normal: 25-41 mm). Right ventricular systolic function is at the lower limits of normal. TAPSE is 16 mm (normal: >= 17 mm). RV S' wave is 11.0 cm/s (normal: >= 9.5 cm/s). Left Atrium The left atrium is dilated. The left atrial volume is 96 mL. The left atrial volume index by BSA is 56 mL/m2 (normal: 16-34 mL/m2). Right Atrium The right atrium is dilated. The right atrial superior-inferior dimension is 60 mm; index is 35 mm/m2 (normal: 19-30 mm/m2). The right atrial medial-lateral dimension is 54 mm; index is 32 mm/m2 (normal: 13-25 mm/m2). There is a catheter present in the right atrium. The IVC is normal in size with normal inspiratory collapse. Mitral Valve There is no evidence of mitral valve prolapse. There is trace mitral regurgitation. Tricuspid Valve There is moderate tricuspid regurgitation. The RV systolic pressure was calculated at 51 mmHg (using TR peak velocity of 3.2 m/s and assuming an RA pressure of 10 mmHg). Aortic Valve The aortic valve is tricuspid. There is no aortic stenosis. There is no aortic regurgitation. Pulmonic Valve There is no pulmonic stenosis. There is trace pulmonic regurgitation. There is mid systolic notching of the pulmonary Doppler profile, consistent with elevated pulmonary artery pressure. Pericardium There is no pericardial effusion. General Findings The image quality was fair (3). Comparison Findings Compared to prior TTE study on 11/09/2024, degree of TR and RVSP have decreased. us Minh Bonds MD CV ECHO ORDERABLES Final Re sult * NC Amyloid SPECT/CT (11/11/2024 5:00 PM EDT) Anatomical Region Laterality Modality Heart, Vascular Nuclear Medicine 11/11/2024 4:00 PM EDT Narrative 11/12/2024 2:02 PM EDT [facility] Name: HIMA MORRIS NUCLEAR CARDIOLOGY LABORATORY : 1985 Study Date: 11/11/2024 BMI: 22.40 Referring MD: [id number] YOKASTA ROMERO Nuclear Cardiology Report Amyloid Imaging Purpose/Indications: * Cardiac amyloidosis suspected, further testing. Location: [place] [address] PROCEDURE: Radionuclide hydroxymethylene diphosphonate cardiac amyloidosis scan. COMPARISON: No prior study available for comparison. TECHNIQUE: 15.72mCi technetium 99m hydroxymethylene diphosphonate was injected. SPECT images were performed 3 hours after injection. Low dose CT images of the heart were obtained for localization and attenuation correction. No diagnostic CT images were obtained. FINDINGS: Qualitative: SPECT images demonstrate no hydroxymethylene diphosphonate uptake within the left ventricular myocardium. Semi-quantitative: On SPECT imaging, the intensity of myocardial uptake is scored as 0: using the following scoring system. Grade 0 None Grade 1 Uptake less than rib Grade 2 Uptake equal to rib Grade 3 Uptake greater than rib, but with absent or only mild rib activity. Incidental Findings: CT Incidental Findings: No significant interval change since the recent CT of 11/01/2024 including diffuse mosaic attenuation involving both lungs. Although incidental CT findings may be identified, this examination is not designed to provide diagnostic quality CT evaluation, and is not a substitute for diagnostic CT imaging. IMPRESSION: Hydroxymethylene diphosphonate imaging is not suggestive of ATTR amyloidosis. We have personally reviewed the data relevant to the interpretation of this study. Signed by: [id number] Isidoro Solis - Radiologist at 9:24:15 AM on 11/12/2024 [id number] Derek Shea - Kitchen Lead at 2:02:36 PM on 11/12/2024 +++ Final +++ Procedure Note Derek Shea MD - 11/12/2024 [facility] Name: [facility] : 1985 Study Date:11/11/2024 BMI: 22.40 Referring MD: [id number] YOKASTA INIGUEZ HEATHER Nuclear Cardiology Report Amyloid Imaging Purpose/Indications: * Cardiac amyloidosis suspected, further testing. Location: [place] [address] PROCEDURE: Radionuclide hydroxymethylene diphosphonate cardiac amyloidosisscan. COMPARISON: No prior study available for comparison. TECHNIQUE: 15.72mCi technetium 99m hydroxymethylene diphosphonate wasinjected. SPECT images were performed 3 hours after injection. Low dose CTimages of the heart were obtained for localization and attenuationcorrection. No diagnostic CT images were obtained. FINDINGS: Qualitative: SPECT images demonstrate no hydroxymethylene diphosphonate uptake withinthe left ventricular myocardium. Semi-quantitative: On SPECT imaging, the intensity of myocardial uptake is scored as 0: usingthe following scoring system. Grade 0 None Grade 1 Uptake less than rib Grade 2 Uptake equal to rib Grade 3 Uptake greater than rib, but with absent or only mild ribactivity. Incidental Findings: CT Incidental Findings: No significant intervalchange since the recent CT of 11/01/2024 including diffuse mosaicattenuation involving both lungs. Although incidental CT findings may be identified, this examination is notdesigned to provide diagnostic quality CT evaluation, and is not asubstitute for diagnostic CT imaging. IMPRESSION: Hydroxymethylene diphosphonate imaging is not suggestive ofATTR amyloidosis. We have personally reviewed the data relevant to the interpretation ofthis study. Signed by: [id number] Isidoro Solis - Radiologist at 9:24:15 AM on 11/12/2024 [id number] Derek Shea - Kitchen Lead at 2:02:36 PM on 11/12/2024 +++ Final +++ Minh Bonds MD CV NM CARDIAC Final Resul t * Fungal culture (11/10/2024 12:49 PM EDT) Special Requests No Special Requests 11/10/2024 12:49 PM EDT [facility] Fungal Culture Only NO FUNGUS OR YEAST ISOLATED AFTER 7 DAYS 11/17/2024 7:25 AM EDT [facility] Other (Vaginal) 11/10/2024 1 2:49 PM EDT 11/10/2024 5:11 PM EDT Minh Bonsd MD MICROBIOLOGY - GENERAL [facility] Final Result Performing Organization Address City/State/[facility] Co de Phone Number [address] [address] * XR ABDOMEN 2 VIEWS (11/10/2024 11:58 AM EDT) Anatomical Region Laterality Modality Abdomen Computed Radiogr aphy 11/10/2024 1:14 PM EDT Impressions 11/10/2024 1:28 PM EDT Nonobstructive bowel gas pattern with a moderate stool volume. Narrative 11/10/2024 1:28 PM EDT XR ABDOMEN 2 VIEWS Referring clinician's provided indication for this examination in [facility]: Nausea/vomiting; Pain COMPARISON: XR ABDOMEN 2 VIEWS FINDINGS: Tubes/Lines: Large bore central venous catheter tip projects over the right atrium. Bowel: Nonobstructive bowel gas pattern with a moderate stool volume. Free Air: No pneumoperitoneum. Procedure Note Stu Floyd MD, PhD - 11/10/2024 XR ABDOMEN 2 VIEWS Referring clinician's provided indication for this examination in [facility]:Nausea/vomiting; Pain COMPARISON: XR ABDOMEN 2 VIEWS FINDINGS: Tubes/Lines: Large bore central venous catheter tip projects over theright atrium. Bowel: Nonobstructive bowel gas pattern with a moderate stool volume. Free Air: No pneumoperitoneum. IMPRESSION: Nonobstructive bowel gas pattern with a moderate stool volume. us Minh Bonds MD IMG XR ABDOMEN Final Resul t * PROCEDURE NOT PERFORMED (11/09/2024 5:15 PM EDT) Anatomical Region Laterality Modality X-Ray Angiograph y Narrative 11/09/2024 5:15 PM EDT Right Heart Catheterization with O2 Sat Run was not performed. Please see procedure log documentation or notes for more information. Sherley Chin CNP CV CARDIAC CATH ORDERABLES Fin al Result * TTE COMPREHENSIVE (11/09/2024 2:26 PM EDT) Body Surface Area 1.68 m2 Left Ventricle Internal Diameter End Diastole 55 37 - 52 mm Interventricular Septum Thickness 13 6 - 11 mm Aortic Sinus Diameter 35 <40 mm Height 165 cm Left Ventricle Internal Diameter End Systole 39 <35 mm Left Ventricular Posterior Wall Thickness 13 6 - 11 mm Ascending Aorta Diameter 31 <36 mm Weight 62 kg Raw LV EF% 50 % Left Atrium Dimension Anterior-Posterior 48 15 - 40 mm Relative Wall Thickness 0.47 0.22 - 0.42 Left Ventricle indexed to BSA 181.2 g/m2 Aortic Valve Sinus Index by BSA 21 mm/m2 Aorta Sinus Index by Height 2.12 cm/m Aorta Sinus CSA index by Height 5.83 cm2/m Ascending Aorta Index 18 mm/m2 Asc Aorta CSA Index by Height 4.57 cm2/m Right Atrium Pressure Estimated 10 mmHg Ascending Aorta Index 18 mm Aortic Sinus Index 21 mm Ascending Aorta Diameter 18 mm Aortic Valve Sinus Index 1 21 19 - 27 mm AO ASC DIAM BSA INDEX 18.45 Left Ventricular Apical Contribution 10 Left Atrial Volume Index 72 16 - 34 mL/m2 Right Ventricle Peak Systolic Pressure 74 mmHg Ejection Fraction 60 50 - 75 % Right Ventricle TAPSE 19 >=17 mm Right Ventricle Pulse Doppler S Wave 13.0 >=9.5 cm/s Right Ventricle Fractional Area Change (FAC) 39 >=35 % Right Ventricle Basal Diameter 53 25 - 41 mm Left Atrium Dimension Superior-Inferior 67 29 - 53 mm Left Atrial Volume 121 mL Left Atrial Volume Index by Height 73 mL/m Right Atrium Dimension Superior-Inferior 68 mm Right Atrium Index Superior-Inferior 40 19 - 30 mm/m2 Right Atrium Dimension Medial-Lateral 52 mm Right Atrium Dimension Medial-Lateral 31 13 - 25 mm/m2 Inferior Vena Cava Diameter 19 <21 mm Tricuspid Valve Peak Velocity 4.0 m/s Right Ventricle to Right Atrium Pressure Gradient 64 mmHg Right Ventricle Peak Systolic Pressure (Assuming RAP 10) 74 mmHg MGB CV ECHO TV RVSP (ASSUMING RAP OF 5) 69 mmHg RVSP (Exclusive of RAP) 64 mmHg Right Atrium Dimension Medial-Lateral 31 mm/m2 Right Atrium Index Superior-Inferior 40 mm/m2 Anatomical Region Laterality Modality Heart Ultrasound Narrative 11/09/2024 3:30 PM EDT LV is dilated with symmetric LVH. Systolic function is normal, EF 60%. RV is dilated with normal function. Biatrial enlargement. Trace-mild MR. Severe eccentric TR. RVSP 74 mmHg. Left Ventricle The left ventricle is dilated. There is symmetric hypertrophy. There is normal left ventricular systolic function. The LV ejection fraction is 60% (calculated via the single dimension method). There are no wall motion abnormalities. Right Ventricle The right ventricle is dilated. There is a prominent moderator band. The RV basal dimension is 53 mm (normal: 25-41 mm). There is normal right ventricular systolic function. RV fractional area change is 39% (normal: >= 35%). Left Atrium The left atrium is dilated. The left atrial volume is 121 mL. The left atrial volume index by BSA is 72 mL/m2 (normal: 16-34 mL/m2). Right Atrium The right atrium is dilated. The right atrial superior-inferior index is 40 mm/m2 (normal: 19-30 mm/m2). The right atrial medial-lateral index is 31 mm/m2 (normal: 13-25 mm/m2). There is a catheter present in the right atrium. The IVC is normal in size with normal inspiratory collapse. The IVC diameter is 19 mm (normal: <= 21 mm). Mitral Valve There is no evidence of mitral valve prolapse. There is trace to mild mitral regurgitation. Tricuspid Valve There is severe tricuspid regurgitation with an eccentrically directed jet. There is reversal of systolic flow in the hepatic veins. The RV systolic pressure was calculated at 74 mmHg (using TR peak velocity of 4.0 m/s and assuming an RA pressure of 10 mmHg). Aortic Valve The aortic valve is tricuspid. There is no aortic stenosis. There is no aortic regurgitation. The visualized portions of the thoracic aorta appear normal in size. Pulmonic Valve There is trace to mild pulmonic regurgitation. There is mid systolic notching of the pulmonary Doppler profile, consistent with elevated pulmonary artery pressure. Pericardium There is a trace circumferential pericardial effusion. There is no echocardiographic evidence of tamponade. General Findings The image quality was good (2). Comparison Findings Compared to prior TTE on 11/03/2024, flattening of the interventricular septum is no longer pronounced. TR remains severe. RVSP has increased 61-->74 mmHg. IAS/IVS There is no evidence of patent foramen ovale (PFO) by Doppler. us Phyllis Padilla MD CV ECHO ORDERABLES Final Res ult * (ABNORMAL) Haptoglobin (11/09/2024 2:06 AM EDT) HAPTOGLOBIN <10(L) 30 - 200 mg/dL [facility] Blood 11/09/2024 2:06 AM EDT 11/09/2024 2:12 AM EDT us Phyllis Padilla MD LAB BLOOD ORDERABLES Final R esult [address] [address] * MRI FACE WITH AND WITHOUT CONTRAST (11/08/2024 10:03 AM EDT) Anatomical Region Laterality Modality Face Magnetic Resonan ce 11/08/2024 10:0 9 AM EDT Impressions 11/08/2024 5:44 PM EDT Cystic subcutaneous mass centered within the left nasolabial fold, most suggestive of a benign proteinaceous nasolabial cyst. Chronic remodeling of the anterior maxilla is better delineated on CT. ATTESTATION: I, Dr. Chidi Goddard as teaching physician, have reviewed the images for this case and if necessary edited the report originally created by Diaz Donahue. Narrative 11/08/2024 5:44 PM EDT MRI FACE WITH AND WITHOUT CONTRAST Referring clinician's provided indication for this examination in Epic: Orbital Mass; nasal mass TECHNIQUE: Multi-sequence, multi-planar MRI of the face was performed before and after intravenous contrast. Motion degraded study, however images remain diagnostic. COMPARISON: CT ANGIO NECK WITH CONTRAST FINDINGS: Aerodigestive Tract: The mucosal appears symmetric. Salivary Glands: No mass or abnormal enhancement. Paranasal sinuses: No mucosal inflammation or mass. Nasal cavity: Centered within the left nasolabial fold occupying the naris and vestibule is again demonstrated a circumscribed homogenous mass measuring 15 x 21 x 26 mm (AP x TR x CC), intrinsically T1 and T2 hyperintense with internal facilitated diffusion. Intrinsic T1 hyperintensity somewhat limits assessment for contrast enhancement, however no significant enhancement is seen. There are no internal fluid fluid levels or septations. It only minimally protrudes into the nasal cavity proper with scalloping of the left anterior maxillary alveolar ridge, better delineated on CT. Petrous Apices, Clivus, Basilar Cisterns, Cavernous Sinuses, Sella, Cranial Nerves, Jugular foramina and Poststyloid parapharyngeal spaces: No skull base mass. Lymph Nodes: There are no nodes meeting imaging criteria for pathologic involvement in the imaged portion of the upper neck. Blood Vessels: The major cervical flow voids are present. Brain: No detectable abnormality is present in the imaged portions of the brain and orbits. Bones and Soft Tissues: Scalloping of the left maxilla as above. No marrow- replacing lesions are present. Procedure Note Chidi Goddard MD - 11/08/2024 MRI FACE WITH AND WITHOUT CONTRAST Referring clinician's provided indication for this examination in Epic:Orbital Mass; nasal mass TECHNIQUE: Multi-sequence, multi-planar MRI of the face was performedbefore and after intravenous contrast. Motion degraded study, howeverimages remain diagnostic. COMPARISON: CT ANGIO NECK WITH CONTRAST FINDINGS: Aerodigestive Tract: The mucosal appears symmetric. Salivary Glands: No mass or abnormal enhancement. Paranasal sinuses: No mucosal inflammation or mass. Nasal cavity: Centered within the left nasolabial fold occupying the narisand vestibule is again demonstrated a circumscribed homogenous massmeasuring 15 x 21 x 26 mm (AP x TR x CC), intrinsically T1 and [id number] with internal facilitated diffusion. Intrinsic [id number] somewhat limits assessment for contrast enhancement,however no significant enhancement is seen. There are no internal fluidfluid levels or septations. It only minimally protrudes into the nasalcavity proper with scalloping of the left anterior maxillary alveolarridge, better delineated on CT. Petrous Apices, Clivus, Basilar Cisterns, Cavernous Sinuses, Sella,Cranial Nerves, Jugular foramina and Poststyloid parapharyngeal spaces: Noskull base mass. Lymph Nodes: There are no nodes meeting imaging criteria for pathologicinvolvement in the imaged portion of the upper neck. Blood Vessels: The major cervical flow voids are present. Brain: No detectable abnormality is present in the imaged portions of thebrain and orbits. Bones and Soft Tissues: Scalloping of the left maxilla as above. Nomarrow- replacing lesions are present. IMPRESSION: Cystic subcutaneous mass centered within the left nasolabial fold, mostsuggestive of a benign proteinaceous nasolabial cyst. Chronic remodelingof the anterior maxilla is better delineated on CT. ATTESTATION: IDr. Chidi as teaching physician, havereviewed the images for this case and if necessary edited the reportoriginally created by Diaz Donahue. Jaycee Thomas [facility] MR HEAD/NECK Final Resul t * XR ABDOMEN 2 VIEWS (11/08/2024 4:58 AM EDT) Anatomical Region Laterality Modality Abdomen Computed Radiogr aphy 11/08/2024 8:05 AM EDT Impressions 11/08/2024 2:22 PM EDT 1. No evidence of bowel obstruction. Moderate stool volume throughout the colon. ATTESTATION: Dr. Mary Ellen Galvan as teaching physician, have reviewed the images for this case and if necessary edited the report originally created by Alli Fuller. Narrative 11/08/2024 2:22 PM EDT XR ABDOMEN 2 VIEWS Referring clinician's provided indication for this examination in Epic: Pain COMPARISON: None available FINDINGS: Tubes/Lines: Partially visualized central venous catheter with distal tip terminating over the right atrium. Bowel: Nonobstructed bowel gas pattern. There is a moderate stool volume throughout the colon. Bones/Soft Tissues: No acute bony abnormalities. Free Air: No pneumoperitoneum. Procedure Note Mary Ellen Grider, [facility] [place] - 11/08/2024 XR ABDOMEN 2 VIEWS Referring clinician's provided indication for this examination in Epic:Pain COMPARISON: None available FINDINGS: Tubes/Lines: Partially visualized central venous catheter with distal tipterminating over the right atrium. Bowel: Nonobstructed bowel gas pattern. There is a moderate stool volumethroughout the colon. Bones/Soft Tissues: No acute bony abnormalities. Free Air: No pneumoperitoneum. IMPRESSION: 1. No evidence of bowel obstruction. Moderate stool volume throughout thecolon. ATTESTATION: I, Dr. Mary Ellen Grider as teaching physician, have reviewedthe images for this case and if necessary edited the report originallycreated by Alli Fuller. Alfredo Fernando MD IMG XR ABDOMEN Final Res ult * (ABNORMAL) LDH (11/08/2024 2:16 AM EDT) LDH 350(H) 110 - 210 U/L [facility] Comment:Hemolysis present, r esult falsely increased. 11/08/2024 2:16 AM EDT 11/08/2024 2:20 AM EDT Lor Martin MD, MPH LAB BLOOD ORDERABLES Fi nal Result [address] [address] * Blood Culture, Routine (11/07/2024 4:45 PM EDT) Special Requests No Special Requests 11/07/2024 4:45 PM EDT [facility] BLOOD CULTURE NO GROWTH 7 DAYS 11/14/2024 7:49 AM EDT [facility] Blood (Blood) 11/07/2024 4:4 5 PM EDT 11/07/2024 5:50 PM EDT Alfredo Fernando MD MICROBIOLOGY - GENERAL OR DERABLES Final Result [address] [address] * (ABNORMAL) Platelet count, citrated (11/07/2024 10:25 AM EDT) Platelet (citrated bld) 87(L) 150 - 400 K/uL [facility] Comment:Reviewed Blood 11/07/2024 10:2 5 AM EDT 11/07/2024 10:35 AM EDT Alfredo Fernando MD LAB BLOOD ORDERABLES Samira l Result Performing Organization Address [facility]/ZIP Co de Phone Number [address] [address] * Special slide box (11/07/2024 10:25 AM EDT) SPECIAL SLIDE BOX Slide in Main Heme Lab [facility] Blood 11/07/2024 10:2 5 AM EDT 11/07/2024 10:35 AM EDT Alfredo Fernando MD LAB BLOOD ORDERABLES Samira l Result Performing Organization Address City/[facility]/ZIP Co de Phone Number [address] [address] * Reticulocytes (11/07/2024 10:25 AM EDT) RETIC 0.8 0.7 - 2.5 % [facility] Blood 11/07/2024 10:2 5 AM EDT 11/07/2024 10:35 AM EDT Alfredo Fernando MD LAB BLOOD ORDERABLES Samira l Result Performing Organization Address [facility]/ZIP Co de Phone Number [address] [address] * (ABNORMAL) TSH with reflex (11/07/2024 10:25 AM EDT) SCREENING PANEL: TSH 5.21(H) 0.40 - 5.00 uIU/mL [facility] Blood 11/07/2024 10:2 5 AM EDT 11/07/2024 10:35 AM EDT us Alfredo Fernando MD LAB BLOOD ORDERABLES Samira l Result [address] [address] * Free T4 (11/07/2024 10:25 AM EDT) FREE T4 1.0 0.9 - 1.8 ng/dL [facility] 11/07/2024 10:2 5 AM EDT 11/07/2024 10:35 AM EDT us Juice Easton MD, PhD LAB BLOOD ORDERABLES Final Resul t Performing Organization Address City/[facility] Co de Phone Number [address] [address] from Last 3 Months Insurance MEDICARE PART A & B [facility] MEDICAID MEDICARE PART A & B [facility] MEDICAID MEDICARE PART A & B HEALTH MEDICARE PART A & B [facility] B [facility] [place] [place] PART A & B [place] MED[facility]ARE [facility] A & B [facility] MEDICARE PART A & B [facility] [place] MEDICARE PART A & B [facility] Advance Directives For more information, please contact: [phone] (9AM - 5PM [facility] [place] [facility], Friday-Friday) * Full Code (Latest Code Status on File) Date Activated Date Inactivated Comments 11/01/2024 1:38 PM Question Answer Comments Code Status Confirmed With: Patient Care Teams Auto Clutch Rebuilder Relationship Specialty Start Date End Date Kassie Reyna MD [address] [place] [id number] PCP - General Internal Medicine 12/17/21 Additional Source Comments The information contained in this document represents components of the legal health record. It is not the complete legal health record.[facility]
--- OUTSIDE RECORDS SUMMARY | 2025-02-07 22:46 | XMS_ITS | Encounter Summary ---
Author Organization [facility] Address [address] [place] [address] Care Team Providers Care Motor Block Mechanic Name Role Phone Kassie Reyna MD Primary Care Provider +1- [phone] Encounter Details Date Type Department Care Team (Late st Contact Info) Description 10/10/2015 Abstract [facility] [address] [facility] [address] [facility] [address] [place] [address] Radha Luna RN Social History Tobacco Use Types Packs/Day [...] documented as of this encounter Care Teams Motor Block Mechanic Relationship Specialty Start Date End Date Kassie Reyna MD [facility] [address] [address] PCP - General Internal Medicine 07/29/22 documented as of this encounter
--- OUTSIDE RECORDS SUMMARY | 2025-02-07 22:46 | XMS_ITS | Encounter Summary ---
Author Organization [facility] Address [address] [place] [address] Care Team Providers Care Hand Edger Name Role Phone Kassie Reyna MD Primary Care Provider +1- [phone] Encounter Details Date Type Department Care Team (Late st Contact Info) Description 09/18/2016 Scanned Document [facility] [address] [facility] [address] [facility] [address] [place] [address] External, Provider Social History Tobacco Use Types [...] documented as of this encounter Care Teams Hand Edger Relationship Specialty Start Date End Date Kassie Reyna MD [address] [address] PCP - General Internal Medicine 07/29/22 documented as of this encounter
--- OUTSIDE RECORDS SUMMARY | 2025-02-07 22:46 | XMS_ITS | Encounter Summary ---
Author Organization [facility] Address [address] [place] [address] Phone Care Team Providers Care Biodiesel Product Manager Name Role Phone Rashid [place] MD Primary Care Provider [phone] Encounter Details Date Type Department Care Team (Late st Contact Info) Description 07/28/2023 Documentation Only [facility], [address] [id number] Tod Stone MD [address] [facility] [address] [place] [address] Social History Tobacco Use Types [...] on filedocumented in this encounter Care Teams Biodiesel Product Manager Relationship Specialty Start Date End Date Rashid [place] MD [facility] [address] [place] [address] PCP - General 06/12/20 documented as of this encounter
--- OUTSIDE RECORDS SUMMARY | 2025-02-07 22:46 | XMS_ITS | Encounter Summary ---
Author Organization [facility] Address [address] [place] [address] Care Team Providers Care Thaw Shed Heater Tender Name Role Phone Kassie Reyna MD Primary Care Provider +1- [phone] Encounter Details Date Type Department Care Team (Late st Contact Info) Description 07/26/2022 Abstract [facility] [address] [facility] [address] [facility] [address] [place] [address] Referring, No Social History Tobacco Use Types Packs/Day Years [...] documented as of this encounter Care Teams Thaw Shed Heater Tender Relationship Specialty Start Date End Date Kassie Reyna MD [address] [address] PCP - General Internal Medicine 07/29/22 documented as of this encounter
--- OUTSIDE RECORDS SUMMARY | 2025-02-07 22:46 | XMS_ITS | Encounter Summary ---
Author Organization [facility] Address [address] [place] [address] Care Team Providers Care Supervisor Gear Repair Name Role Phone Kassie Reyna MD Primary Care Provider [phone]- [phone] Encounter Details Date Type Department Care Team (Late st Contact Info) Description 10/04/2015 Scanned Document [facility] [address] [facility] [address] [facility] [address] [place] [address] Benjamin Morel [address] [place], [place] [address] Social History Tobacco Use Types Packs/Day Years [...] documented as of this encounter Care Teams Supervisor Gear Repair Relationship Specialty Start Date End Date Kassie Reyna MD [address] [address] PCP - General Internal Medicine 07/29/22 documented as of this encounter
--- OUTSIDE RECORDS SUMMARY | 2025-02-07 22:46 | XMS_ITS | Encounter Summary ---
Author Organization [facility] Address [address] [place] [address] Care Team Providers Care Fuel Testing Technician Name Role Phone Kassie Reyna MD Primary Care Provider [phone]- [phone] Encounter Details Date Type Department Care Team (Late st Contact Info) Description 10/16/2016 Scanned Document [facility] [address] [facility] [address] [facility] [address] [place] [address] Kassie Altamirano MD [address] [place] [phone] Social History Tobacco Use Types Packs/Day Years [...] documented as of this encounter Care Teams Fuel Testing Technician Relationship Specialty Start Date End Date Kassie Reyna MD [address] [address] PCP - General Internal Medicine 07/29/22 documented as of this encounter
--- OUTSIDE RECORDS SUMMARY | 2025-02-07 22:47 | XMS_ITS | Encounter Summary ---
Author Organization [facility] Address [address] [place] [address] Care Team Providers Care Harness Repairer Name Role Phone Kassie Reyna MD Primary Care Provider [phone]- [phone] Encounter Details Date Type Department Care Team (Late st Contact Info) Description 01/27/2015 Scanned Document [facility] [address] [facility] [address] [place] [address] External, Provider Social History Tobacco Use Types [...] documented as of this encounter Care Teams Harness Repairer Relationship Specialty Start Date End Date Kassie Reyna MD [address] [phone] PCP - General Internal Medicine 07/29/22 documented as of this encounter
--- OUTSIDE RECORDS SUMMARY | 2025-02-07 22:47 | XMS_ITS | Clinical Summary ---
Author Organization [address] Address [address] [place] [address] Care Team Providers Care Numerical Control Programmer Name Role Phone Kassie Reyna MD Primary Care Provider +1- [phone] Allergies Active Allergy Reactions Criticality Noted Date Comments Amoxicillin Anaphylaxis,Hives High 08/13/2022 Clonidine Anaphylaxis High 08/06/2024 Apixaban Hives,Other (See Comments) High 09/24/2024 epistaxis Gabapentin Anaphylaxis High 02/17/2021 Hydralazine Itching,Nausea Low 02/22/2021 Patient reports prior reaction to hydralazine -> itchy throat and nausea requiring antiemetics. Latex Itching Low 08/06/2024 Lisinopril Shortness Of Breath High 01/31/2021 Losartan Itching,Swelling Medium 10/25/2020 Epoetin Beta, Methoxy Peg Anaphylaxis High 06/27/2021 Penicillins Anaphylaxis,Hives; Itching High 10/03/2015 Prednisone Rash; Itching Medium 10/04/2015 Hives and throat itching Tramadol Anaphylaxis High 02/17/2021 Valsartan Hives,Swelling High 10/19/2024 10/19/24: pt reported allergy Medications levETIRAcetam (KEPPRA) 500 MG Immediate Release tablet Take 1 tablet (500 mg total) by mouth daily. 30 tablet 11 10/04/19 16 Active ferric citrate (AURYXIA) 1000 mg (210 mg iron) tablet Take 2 tablets (420 mg total) by mouth 3 (three) times daily with meals. , and 1 tablet with snack Active levETIRAcetam (KEPPRA) 250 mg immediate release tablet Take 1 tablet (250 mg total) by mouth Every Friday, , and Friday. Take after HD on dialysis days Active bisacodyL (DULCOLAX) [address] 1 suppository (10 mg total) rectally daily as needed for constipation. 12 suppository 06/29/19 Active Additional Information Patient not taking.Reported on 10/19/2024 albuterol sulfate 90 mcg/actuation HFA aerosol inhaler 1-2 puffs every 6 hours as needed 03/26/20 Active carvediloL (COREG) 25 mg Immediate Release tablet Take 1 tablet (25 mg total) by mouth 2 (two) times daily with breakfast and dinner. Active fluticasone furoate-vilante roL (BREO ELLIPTA) 100-25 mcg/dose blister powder for inhalation Inhale 1 puff into the lungs daily. Active NIFEdipine XL (PROCARDIA-XL) 60 mg 24 hr tablet Take 1 tablet (60 mg total) by mouth daily. Active pantoprazole (PROTONIX) 40 mg tablet Take 1 tablet (40 mg total) by mouth daily. Active torsemide (DEMADEX) 20 mg tablet Take 2 tablets (40 mg total) by mouth daily. Active oxyCODONE (ROXICODONE) 15 mg Immediate Release tablet Take 1 tablet (15 mg total) by mouth every 4 (four) hours. Active senna (SENOKOT) 8.6 mg tablet Take 1 tablet (8.6 mg total) by mouth 2 (two) times daily. 30 tablet 11 08/01/19 Active lidocaine 4 % topical patch Place 1 patch over 12 hours onto the skin every 24 hours. Remove & Discard patch within 12 hours or as directed by 30 patch 08/14/19 Active Additional Information Patient not taking.Reported on 10/19/2024 naloxone (NARCAN) 4 mg/actuation nasal spray Use 1 spray in 1 nostril for suspected opioid overdose. May repeat in 2 minutes in other nostril with new device if minimal or no response. 2 each 1 08/14/19 Active Additional Information Patient not taking.Reported on 09/24/2024 aspirin 81 mg EC delayed release tablet Take 1 tablet (81 mg total) by mouth daily. Active NIFEdipine XL (PROCARDIA-XL) 30 mg 24 hr tablet Take 1 tablet (30 mg total) by mouth daily. Active HARD TO ENTER MEDICATION Take 1 each by mouth daily. OTC Med Name SEA SOLORIO 1000mg TABLETS Active TURMERIC ORAL Take 1 tablet by mouth daily. Active HARD TO ENTER MEDICATION Take 1 each by mouth daily. OTC Med Name MORINGA TABLETS Active epoetin michael (EPOGEN INJ) Inject 9,000 Units as directed once a week. , on Active Active Problems Problem Noted Date Diagnosed Date Arm pain, anterior, left 10/18/2024 Complication of AV dialysis fistula, initial enc ounter 09/30/2024 Influenza A 07/22/2024 Hypertensive urgency 06/27/2022 Neck pain 06/26/2022 Fluid overload 06/11/2022 Calf tenderness 06/05/2022 Overview (06/24/2022): Last Assessment & Plan: On admission exam pt had b/l LE calf TTP, worse w/ ankle dorsiflexion. No prior hx of DVT. This is likely in setting of chronic pain and diffuse edema of LEs. Hypertension secondary to other renal disorders 06/05/2022 Overview (06/24/2022): Last Assessment & Plan: Pt has PMHx HTN, reports recent admission at [facility] for hypertensive emergency. At home she takes clonidine 0.2mg BID, nifedipine 60mg BID, hydralazine (pt unsure of dose), and torsemide two pills BID (pt unsure of dose). Of note, pt on presentation said she had been experiencing progressive LE swelling unrelieved w/ HD x 1 year. This improved following HD session on 06/05, was likely related to volume overload from HD noncompliance and ESRD. As per nephrology, clonidine was recommended to be stopped and patient was started on doxazosin 4 mg nightly. Patient was continued on hydralazine, nifedipine and torsemide during hospitalization. Given concerns of allergy, doxazosin was discontinued on discharge, patient was discharged only on hydralazine 50 3 times daily, nifedipine and torsemide home dose. Class 1 obesity 05/01/2022 Pericardial effusion 01/04/2022 Renal failure, unspecified chronicity 03/15/2021 Need for acute hemodialysis (HC Code) (HC CODE) 03/08/2021 Acute renal failure, unspeci fied acute renal failure type (HC Code) 02/26/2021 ESRD (end stage renal disease) (HC Code) 021 Hyperkalemia 01/17/2021 Overview (06/24/2022): Last Assessment & Plan: Pt p/w hyperkalemia of 6.9 which developed in the setting of 1 week of missed HD sessions. She was asymptomatic and had no EKG changes. Was treated in ED w/ IV insulin/dextrose and kayexalate w/ improvement to 5.7. Unfortunately on labs 4 hours later K had again risen to 6.3 therefore repeat IV insulin/dextrose and IV calcium gluconate were given. Resolved following HD on 06/05. Patient was dialyzed prior to discharge 06/06. Patient was counseled regarding importance of regular dialysis, which should prevent hyperkalemia in the future. Hypocalcemia 10/25/2020 Overview (06/24/2022): Last Assessment & Plan: Pt p/w hypocalcemia 6.3. asxs. No prolonged QT on EKG. Treated w/ 1g IV calcium gluconate x 2 in ED w/ improvement to 6.8. Unfortunately on repeat BMP 4 hours later calcium decreased to 6.5 and pt was tx'd w 3rd dose of 1g IV calcium gluconate. Improved to 7.3 on discharge. Calcium was supplemented prior to discharge. - Consider starting calcitriol 0.25mcg PO every day outpatient Pain in joint 06/26/2020 History of parathyroidectomy 05/02/2020 Precordial pain 11/11/2019 Uremia 04/02/2019 Hypertensive emergency 04/02/2019 Hypertensive renal disease 04/02/2019 Termination of (fetus) 09/18/2018 Benign essential hypertension in obstetric keshia xt 09/15/2018 History of delivery 09/15/2018 Overview (06/24/2022): 11/2012 11/2012 History of seizure 09/15/2018 AVF (arteriovenous fistula) 09/15/2018 History of pneumonia 09/15/2018 Missed 09/15/2018 Myofascial pain syndrome 03/26/2018 Dialysis patient 03/20/2018 Overview (06/24/2022): Currently on dialysis three times weekly Currently on dialysis three times weekly Hyperparathyroidism (HC Code) 10/30/2017 Acute pulmonary edema (HC Code) 10/30/2017 Aspiration pneumonitis (HC Code) 10/30/2017 Iron deficiency 10/30/2017 Hypertensive kidney disease with end-stage renal disease (HC Code) 06/23/2017 Overview (06/24/2022): bx proven bx proven Chest pain 12/10/2016 Chronic pain 12/10/2016 Overview (06/24/2022): Last Assessment & Plan: Pt has Hx of chronic pain in her back (2/2 DDD), b/l LEs, and chest. She reportedly takes oxycodone 5 mg at home for this. Patient was trialed on lidocaine patches, Robaxin and Tylenol in addition to home oxycodone during hospitalization. Would recommend outpatient follow-up with PCP, and patient can be referred to pain clinic. Would also recommend screening patient for depression outpatient. Acute superficial gastritis with hemorrhage 10/02 Superficial gastritis 10/30/2016 Pre-transplant evaluation for kidney transplant 05/01/2016 Overview (06/24/2022): MANIPULATIVE THERAPY SPECIALIST SHEET: PLEASE REMEMBER TO DOCUMENT PVD, IF APPLICABLE Sanitation Inspector: Giana Gutierrez ESRD secondary to Pre-Clampsia on HD since 12/2014 PMHx/PSHx: MRSA due to permcath 01/2015, asthma, chronic b/l back pain (sees pain mgt), pre-eclampsia, seizures (during on meds and no recurrence) parathyroidectomy 2014 Dialysis Center: [facility] Fax: Mode: Home Hemo Schedule: Anticoagulation: none Sensitization : - x1 spontanious x1 elective Transplant: no Transfusions: no CPRA: 93% CONSENT Status Date Comments COMPUTER TECHNICAL SPECIALIST/KDPI >85 Decline 03/28/2020 PHS Increased Risk Decline 03/28/2020 HCV Ab(+) CHRISTIE (-) (Non-Viremic) Not applicable 03/28/2020 HCV Viremic for Patients with Active HCV Decline 03/28/2020 HCV CHRISTIE (+) (Viremic) for HCV (-) Patient Decline 03/28/2020 RADIOLOGY/IMAGING Status Date Comments CXR CT Scan Abd/Pelvis done 04/18/20 Epic: IMPRESSION: 1. No atherosclerotic disease of the aorta, common iliac and external iliac arteries. No aortic or iliac artery dissection or aneurysm. No common or external iliac artery stenosis. 2. No evidence of malignancy in the abdomen or pelvis Other Cardiology Status Date Comments EKG Pending locally 07/26/21 Echocardiogram Pending locally 07/26/21 Nuclear Stress Test Pending locally 07/26/21 Cardiac Catherization Other GI Status Date Comments Colonoscopy N/A < 45 Other SIGHT MOUNTER Status Date Comments Mammogram N/A < 40 PAP Smear Pending locally 07/26/21 Other Pathology Status Date Comments Other Pulmonary Status Date Comments PPD done QG Other Vascular Status Date Comments Other CONSULTS Provider Date Impression Transplant Nephrology Transplant Surgeon Saad Gonzales 03/27/20 Good candidate. 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 Moved from [facility] to [facility] transplant list Essential hypertension, benign 04/23/2006 Anxiety state 04/23/2006 Asthma 02/28/2006 Resolved Problems Problem Noted Date Diagnosed Date Resolved Date Renal failure 01/19/2021 02/17/2021 Immunizations Immunization Administration Dates Next Due HPV9 03/04/2019 Hep B, adolescent or pediatric 06/24/2000 Hep B, adult (Engerix/Recombivax) 06/24/2000 Influenza, seasonal, ID, preservative free 04/09 Influenza, split virus, triv alent, Preservative Free 05/05/2015 Influenza, trivalent, inject able, contains preservative 04/03/2021,05/02/2016 Influenza, unspecified formulation 04/08/2022 Pneumococcal conjugate PCV 13 03/04/2019 Pneumococcal polysaccharide PPSV23 10/18/2017,,05/05/2015 Tdap 12/03/2012 Family History Medical History Relation Name Comments Hypertension Maternal Aunt Kidney disease Maternal Aunt Hypertension Maternal Uncle Kidney disease Maternal Uncle Diabetes Mother Cancer Neg Hx Relation Name Status Comments Maternal Aunt Maternal Uncle Mother Social History Tobacco Use Types Packs/Day Years Used Date Smoking Tobacco: Never Smokeless Tobacco: Never Tobacco Cessation:Counseling Given: Not Answered Alcohol Use Standard Drinks/Week Comments No 0 (1 standard drink = 0.6 oz pur e alcohol) [facility] Utilities Answer Date Recorded In the past 12 months has th e electric, gas, oil, or water [employer] threatened to shut off services in your home? No 10/19/2024 Overall Financial Resource Strain (CARDIA) Answe r Date Recorded How hard is it for you to pa y for the very basics like food, housing, medical care, and heating? Not hard at all 08/13/2022 PHQ-2 Answer Date Recorded PHQ-2 Total Score 0 10/18/2024 Hunger Vital Sign Answer Date Recorded Within the past 12 months, y ou worried that your food would run out before you got the money to buy more. Never true 10/20/19 25 Within the past 12 months, t he food you bought just didn't last and you didn't have money to get more. Never true 10/19/2024 PRAPARE - Transportation Answer Date Re corded In the past 12 months, has l ack of transportation kept you from medical appointments or from getting medications? No 10/01 In the past 12 months, has l ack of transportation kept you from meetings, work, or from getting things needed for daily living? No 10/19/2024 Housing Stability Answer Date Recorded What is your living situation today? I have a [facility] place to live 10/19/2024 Housing Stability Not on file 10/19/2024 Interpersonal Safety Answer Date Record ed Is there anyone in your life that is hurting or threatening you in anyway? no 10/18/2024 Physical Indicators of Abuse No evidence of phys ical abuse 10/18/2024 Comments No Sex and Gender Information Value Date Recorded Sex Assigned at Female 07/22/2024 11:05 PM EST Legal Sex Female 3:06 PM EDT Gender Identity Female 07/22/2024 11:05 PM EST Sexual Orientation Not on file Last Filed Vital Signs Vital Sign Reading Time Taken Comments Blood Pressure 176/80 10/23/2024 6:15 PM EDT Pulse 65 10/23/2024 6:15 PM EDT Temperature 36.4 C (97.6 F) 10/23/2024 6:15 PM EDT Respiratory Rate 18 10/23/2024 6:15 PM EDT Oxygen Saturation 99% 10/23/2024 8:30 AM EDT Inhaled Oxygen Concentration - - Weight 67.3 kg (148 lb 5.9 oz) 10/23/2024 2:45 P M EDT Height 165.1 cm (5' 5 ) 10/19/2024 3:00 AM EDT Body Mass Index 24.69 10/19/2024 3:00 AM EDT Plan of Treatment Health Maintenance Due Date Last Done Comments Cervical cancer screening 2007 Tetanus adult (Td q 10,TDAP once) 12/03/2022 12/03/2012 Covid-19 vaccine series ( season) 2025 Influenza vaccine 01/31/2025 04/08/2022, , 05/02/2016, Additional history exists Diabetes screening 10/24/2027 10/23/2024, 0 10/22/2024, 10/21/2024, Additional history exists Pneumococcal Vaccine (2 - 49 years) (3 of 3 - PCV20 or PCV21) 2036 03/04/2019, 10/18/2017, 06/06/2015, Additional history exists RSV Immunization (1 - 1-dose 75+ series) 2061 HIV screening Completed 08/13/2022, 10/31, 06/12/2017, Additional history exists Hepatitis C screening Completed 07/22/2024 , 01/23/2021, 07/20/2019, Additional history exists Colon cancer screening, Colonoscopy Discontinued Colon cancer screening,CT Colonography,5 year Discontinued Colon cancer screening,FIT DNA (Cologuard) Discontinued Colon cancer screening,FIT/FOBT,Annual Discontinued Meningococcal B Vaccine Aged Out No l onger eligible based on patient's age to complete this topic Meningococcal Vaccine Aged Out No bryanna sophie eligible based on patient's age to complete this topic Medical Devices Implanted Type Area Quality Control Manager Device Identifier Shelf Expiration Date Model / Serial / Lot Kit Catheter Hemo 2lum Str Lng Trm Glidepath [id number] - [id number] Implanted:Qty: 1 on 09/30/2024 by Devonte Sales MD at [facility] [address] Implant CR BARD [id number] 10/30/2025 [id number] / / [id number] Procedures Procedure Name Priority Date/Time Associated Diagnosis Comments BASIC METABOLIC PANEL Routine 10/23/2024 11:18 AM EDT HIV-1/HIV-2 ANTIBODY/ANTIGEN SCREEN W/REFLEX ([facility] LMW [facility]) Routine 08/13/2022 3:32 PM EDT ESRD (end stage renal disease) (HC Code) Pre-transplant evaluation for kidney transplant Other abnormal glucose Encounter for long-term (current) drug use Encounter for screening for human immunodeficiency virus (HIV) HEPATITIS C AB WITH REFLEX TO HCV PCR Add-On 01/23/2021 6:51 AM EDT from Last 3 Months or Most Recently Relevant to Health Maintenance Results * (ABNORMAL) Basic metabolic panel (10/23/2024 11:18 AM EDT) Sodium 135(L) 136 - 144 mmol/L 10/23/2024 12:27 PM [facility] Potassium 5.1 3.3 - 5.3 mmol/L 10/23/2024 12:27 PM [facility] Chloride 97(L) 98 - 107 mmol/L 10/23/2024 12:27 PM [facility] CO2 24 20 - 30 mmol/L 10/23/2024 12:27 PM [facility] Anion Gap 14 7 - 17 10/23/2024 12:27 PM [facility] Glucose 125(H) 70 - 100 mg/dL 10/23/2024 12:27 PM [facility] BUN 33(H) 6 - 20 mg/dL 10/23/2024 12:27 PM [facility] Creatinine 7.57(H) 0.40 - 1.30 mg/dL 10/23/2024 12:27 PM [facility] Calcium 7.8(L) 8.8 - 10.2 mg/dL 10/23/2024 12:27 PM [facility] BUN/Creatinine Ratio 4.4(L) 8.0 - 23.0 10/23/2024 12:27 PM [facility] eGFR (Creatinine) 7(L) >=60 mL/min/1.7 3m2 10/23/2024 12:27 PM [facility] Comment: [facility] utilizes CKD-EPI Creatinine 2020 to report eGFR. Values < 60 mL/min/1.73 m2 may indicate CKD if present for more than three months AND creatinine is at steady state. The eGFR provides a rough estimate of kidney function. For further guidance, please refer to the CKD: Adult Cross Roller Signature pathway. Creatinine Delta 10/23/2024 12:27 PM [facility] Comment:No previous creatini ne <5.00 mg/dL is available within the previous 12 months to calculate a delta creatinine. Blood ARM NEC / Unknown Venipuncture / Unknown 10/23/2024 11:18 AM EDT 10/23/2024 11:38 AM EDT us Golden Gordillo MD LAB BLOOD ORDERABL ES Final Result [facility] [address] [place] [address] * HIV-1/HIV-2 antibody/antigen screen w/reflex ([facility]) (08/13/2022 3:32 PM EDT) HIV 1 and 2 Antibody/Antigen Screen Negative Negative 08/13/2022 9:02 PM EDT [facility] Comment:Interpretation: This specimen is HIV antibody negative. A negative test does not exclude the possibility of infection with HIV. Negative results may be seen in early infection, advanced AIDS and agammaglobulinemic patients. If suspicion is high, submit a sample for HIV nucleic acid testing. Blood Venipuncture / Unknown 08/13/2022 3:32 PM EDT 08/13/2022 3:44 PM EDT us Cory Tellez MD LAB BLOOD ORDERABLES Samira l Result Performing Organization Address [facility] Co de Phone Number [facility] [address] [place] [address] * Hepatitis C Ab with reflex to HCV PCR (01/23/2021 6:51 AM EDT) Hepatitis C Antibody Non-Reacti ve Non-Reacti ve 01/23/2021 11:31 AM EDT [facility] Blood Venipuncture / Unknown 01/23/2021 6:51 AM EDT 01/23/2021 7:09 AM EDT us Minh Pike MD LAB BLOOD ORDERABLES Final Resu lt [facility] DEPARTMENT OF PATHOLOGY [address] [place] [address] from Last 3 Months or Most Recently Relevant to Health Maintenance Insurance MEDICARE [id number] MEDICAID [place] MEDICARE [id number] MEDICAID [place] MEDICARE MEDICARE [id number] MEDICAID [place]ICAID [place] [address] [place] [address] MEDICARE MEDICAID [place] [address] [place] [address] MEDICARE MEDICAID [id number] Advance Directives * Full Code (Latest Code Status on File) Date Activated Date Inactivated Comments 10/18/2024 4:34 PM 10/23/2024 11:34 PM * Full Code Date Activated Date Inactivated Comments 09/30/2024 7:49 PM 10/01/2024 9:56 PM * Full Code Date Activated Date Inactivated Comments 07/23/2024 6:06 AM 08/13/2024 2:57 PM * Full ACLS Date Activated Date Inactivated Comments 06/26/2022 4:39 PM 06/29/2022 9:19 PM Question Answer Comments With Whom was the Code Status Discussed? Patient * Full ACLS Date Activated Date Inactivated Comments 03/15/2021 2:17 PM 03/16/2021 6:53 PM Question Answer Comments With Whom was the Code Status Discussed? Patient Care Teams Numerical Control Programmer Relationship Specialty Start Date End Date Kassie Reyna MD [address] [address] PCP - General Internal Medicine 07/29/22
--- OUTSIDE RECORDS SUMMARY | 2025-02-07 22:47 | XMS_ITS | Encounter Summary ---
Author Organization [facility] and [facility] Address [address] [place] [address] Care Team Providers Care Test Engine Evaluator Name Role Phone Kassie Reyna MD Primary Care Provider [phone]- [phone] Encounter Details Date Type Department Care Team (Late st Contact Info) Description 12/13/2020 Abstract [facility] [address] [facility] [address] [facility] [address] [place] [address] Katey Parr Social History Tobacco Use Types Packs/Day Years Used Date Smoking Tobacco: Never Alcohol Use Standard Drinks/Week Comments No 0 (1 standard drink = 0.6 oz pur e alcohol) Comments No Sex and Gender Information Value [...] Date Last Indicated Resolved Time R/O COVID-19 01/17/2021 01/17/2021 01/17/2021 11:2 3 [...] documented as of this encounter Care Teams Test Engine Evaluator Relationship Specialty Start Date End Date Kassie Reyna MD [address] [id number] PCP - General Internal Medicine 07/29/22 documented as of this encounter
--- OUTSIDE RECORDS SUMMARY | 2025-02-07 22:47 | XMS_ITS | Encounter Summary ---
Author Organization [facility] Address [address] [place] [address] Care Team Providers Care Hotel Superintendent Name Role Phone Kassie Reyna MD Primary Care Provider [phone]- [phone] Encounter Details Date Type Department Care Team (Late st Contact Info) Description 07/24/2015 Scanned Document [facility] [address] [facility] [address] [facility] [address] [place] [address] External, Provider Social History Tobacco Use Types [...] documented as of this encounter Care Teams Hotel Superintendent Relationship Specialty Start Date End Date Kassie Reyna MD [address] [address] PCP - General Internal Medicine 07/29/22 documented as of this encounter
--- OUTSIDE RECORDS SUMMARY | 2025-02-07 22:47 | XMS_ITS | Encounter Summary ---
Author Organization [facility] Address [address] [place] [address] Phone Care Team Providers Care Chief Console Operator Name Role Phone Rashid Helton MD Primary Care Provider [phone] Encounter Details Date Type Department Care Team (Late st Contact Info) Description 09/02/2024 Documentation Only [facility], [address] [place] [address] Lianna Fishman [address] [place] [phone] Social History Tobacco Use Types Packs/Day Years [...] on filedocumented in this encounter Care Teams Chief Console Operator Relationship Specialty Start Date End Date Rashid Helton MD [facility] [address] [place] [address] PCP - General 06/12/20 documented as of this encounter
--- OUTSIDE RECORDS SUMMARY | 2025-02-07 22:47 | XMS_ITS | Encounter Summary ---
Author Organization [facility] and [facility] Address [address] [place] [address] Care Team Providers Care Organ Assembler Name Role Phone Kassie Reyna MD Primary Care Provider [phone]- [phone] Encounter Details Date Type Department Care Team (Late st Contact Info) Description 07/23/2015 Scanned Document [facility] [address] [facility] [address] [facility] [address] [place] [address] External, Provider Social History Tobacco Use Types [...] documented as of this encounter Care Teams Organ Assembler Relationship Specialty Start Date End Date Kassie Reyna MD [address] [address] PCP - General Internal Medicine 07/29/22 documented as of this encounter
--- OUTSIDE RECORDS SUMMARY | 2025-02-07 22:47 | XMS_ITS | Encounter Summary ---
Author Organization [facility] and [facility] Address [address] [place] [address] Care Team Providers Care Veterans Services Specialist Name Role Phone Kassie Reyna MD Primary Care Provider [phone]- [phone] Encounter Details Date Type Department Care Team (Late st Contact Info) Description 06/28/2021 Abstract [facility] 800 [facility] 800 [facility] [address]th [place] [address] Maritza Plascencia [address] [place], [place] [address] Social History Tobacco Use Types Packs/Day Years [...] Procedure Name Priority Date/Time Associated Diagnosis Comments CT RESULT SCAN 06/28/2021 2:13 PM EST documented in this encounter Results * CT RESULT SCAN (06/28/2021 2:13 PM EST) 06/28/2021 2:13 PM EST us Provider Not In System IMG SCAN REPORTS Final Re sult documented in this encounter Visit Diagnoses Not on filedocumented in this encounter Additional Health Concerns Infection Onset Date Last Indicated Resolved Time R/O COVID-19 07/25/2021 07/25/2021 07/25/2021 6:19 PM [...] documented as of this encounter Care Teams Veterans Services Specialist Relationship Specialty Start Date End Date Kassie Reyna MD [facility] [address] [address] PCP - General Internal Medicine 07/29/22 documented as of this encounter
--- OUTSIDE RECORDS SUMMARY | 2025-02-07 22:47 | XMS_ITS | Encounter Summary ---
Author Organization [facility] Address [address] [place] [address] Phone Care Team Providers Care Steam Station Supervisor Name Role Phone Rashid Helton MD Primary Care Provider [phone] Encounter Details Date Type Department Care Team (Late st Contact Info) Description 08/23/2024 Documentation Only [facility] [place], [address] [place] [phone] Waqar Wellington MD [address] [place] [address] Social History Tobacco Use Types [...] on filedocumented in this encounter Care Teams Steam Station Supervisor Relationship Specialty Start Date End Date Rashid Helton MD [facility] [address] [place] [address] PCP - General 06/12/20 documented as of this encounter
--- OUTSIDE RECORDS SUMMARY | 2025-02-07 22:47 | XMS_ITS | Encounter Summary ---
Author Organization [facility] Address [address] [place] [address] Phone Care Team Providers Care Can Filling Room Sweeper Name Role Phone Rashid Helton MD Primary Care Provider Encounter Details Date Type Department Care Team (Late st Contact Info) Description 08/23/2024 Documentation Only [facility] [place], [address] [place] [phone] Waqar Wellington MD [address] [place] [address] Social History Tobacco Use Types [...] on filedocumented in this encounter Care Teams Can Filling Room Sweeper Relationship Specialty Start Date End Date Rashid Helton MD [facility] [address] [place] [address] PCP - General 06/12/20 documented as of this encounter
--- OUTSIDE RECORDS SUMMARY | 2025-02-07 22:47 | XMS_ITS | Encounter Summary ---
Author Organization [facility] and [facility] Address [address] [place] [address] Care Team Providers Care Freight Rate Specialist Name Role Phone Kassie Reyna MD Primary Care Provider [phone]- [phone] Encounter Details Date Type Department Care Team (Late st Contact Info) Description 10/04/2015 Documentation [facility] [address] [place] [address] Isidoro New, PharmD [address] [place] [address] Social History Tobacco Use Types Packs/Day Years [...] on file documented as of this encounter Miscellaneous Notes * Pharmacy Note - Transplant - Isidoro New, PharmD - 10/04/2015 1:02 PM EDT TRANSPLANT PHARMACY: PRE-LISTING CLINIC EVALUATION I presented the benefits and risks of transplant immunosuppression to Flavio Morris. I emphasized the importance of medication adherence to avoid rejection and improve graft outcomes. I reviewed specific medications that she will be expected to take as part of her transplant regimen, including how to take each medication, common side effects, how we will monitor for side effects, and probable duration of therapy for each. I stressed the importance of avoiding herbal medications as well as grapefruit juice and recommended always checking with her doctor or pharmacist post-transplant before starting any new medication due to the potential drug interactions. I provided her with a sample copy of a MedActionPlan list that she can take to her pharmacy to ensure that they will have those medications in stock. I also met one-on-one with Flavio Morris to review her pre-transplant medications and address concerns she had about her current medications. I updated her allergies, immunizations, and medicationlist. Flavio Morris reports adherence to her medication, with a [place] Medication Adherence Scale (MMAS-8) score of 8, High adherence. The CT ENGINEER FIRST ASSISTANT was accessed and Ms. Morris is not taking any controlled substance other than those listed in her home medication list. Flavio Morris is cleared for transplant listing from a pharmacy perspective. Isidoro New, PharmD October 04, 2015 1:03 PM documented in this encounter Plan of Treatment [...] documented as of this encounter Care Teams Freight Rate Specialist Relationship Specialty Start Date End Date Kassie Reyna MD [address] [place] [phone] PCP - General Internal Medicine 07/29/22 documented as of this encounter
--- OUTSIDE RECORDS SUMMARY | 2025-02-07 22:47 | XMS_ITS | Encounter Summary ---
Author Organization [facility] Address [address] [place] [address] Phone Care Team Providers Care Senior Ui Developer Name Role Phone Kassie Reyna MD Primary Care Provider + Encounter Details Date Type Department Care Team (Late st Contact Info) Description 02/02/2025 Telephone [facility]pert[facility] Clinic [address] [facility] [address] [facility] [address], 2nd Floor, [address] [place] [address] Lita Nava, RN [address] [place] [address] [email or web address] Social History Tobacco Use Types Packs/Day Years [...] PM EDT documented as of this encounter Progress Notes * Lita Nava RN - 02/02/2025 1:33 PM EDT [facility]. Contact number given and patient will 'try to call today'. documented in this encounter Plan of Treatment Upcoming Encounters Date Type Department Care Team (Late st Contact Info) Description 03/22/2025 3:00 PM EDT Office Visit [facility] Pul[facility]pertension Clinic [address], 2[address] Floor, [address] [place] [address] Zuleika [place] MD [address] [facility] [address] [place] [address] [email or web address] documented as of this encounter [...] cell phone pictures and video calls like [email or web address]. If patient is found to be recording [...] on filedocumented in this encounter Care Teams Senior Ui Developer Relationship Specialty Start Date End Date Kassie Reyna MD [address] [place] [address] PCP - General Internal Medicine 12/17/21 documented as of this encounter Additional Source Comments The information contained in this document represents components of the legal health record. It is not the complete legal health record.[facility]
--- OUTSIDE RECORDS SUMMARY | 2025-02-07 22:47 | XMS_ITS | Encounter Summary ---
Author Organization [facility] and [facility] Address [address] [place] [address] Care Team Providers Care Utility Worker Name Role Phone Kassie Reyna MD Primary Care Provider [phone]- [phone] Reason for Visit * Reason Comments Hospital Discharge Follow Up Encounter Details Date Type Department Care Team (Late st Contact Info) Description 02/08/2021 Patient Outreach [facility] [address] [place] [phone] Jo Mueller RN Hospital Discharge Follow Up Social History Tobacco Use Types Packs/Day Years Used Date Smoking Tobacco: Never Alcohol Use Standard Drinks/Week Comments No 0 (1 standard drink = 0.6 oz pur e alcohol) PHQ-2 Answer Date Recorded PHQ-2 Total Score 0 02/05/2021 Comments No Sex and Gender Information Value [...] have Coronavirus / COVID-19? No / Unsure 02/05/2021 10:35 AM EDT documented as of this encounter Plan of Treatment Not on file documented as of this encounter Visit Diagnoses Not on filedocumented in this encounter Additional Health Concerns Infection Onset Date Last Indicated Resolved Time R/O COVID-19 02/15/2021 02/15/2021 02/15/2021 12:1 5 [...] 4:41 PM EST R/O Respiratory Virus 07/22/2024 07/22/202407/22/ 2025 4:41 PM EST R/O COVID-19 07/22/2024 07/22/2024 07/22/2024 4:41 PM EST Influenza A 07/22/2024 07/22/2024 08/02/2024 1:13 PM EST Assessment Noted Time PHQ-9 Depression Total Score: 0 02/06/20 2:45 PM EDT documented as of this encounter Care Teams Utility Worker Relationship Specialty Start Date End Date Kassie Reyna MD [address] [address] PCP - General Internal Medicine 07/29/22 documented as of this encounter
--- OUTSIDE RECORDS SUMMARY | 2025-02-07 22:47 | XMS_ITS | Encounter Summary ---
Author Organization [facility] Address [address] [place] [address] Care Team Providers Care Bag Tester Name Role Phone Kassie Reyna MD Primary Care Provider [phone]- [phone] Encounter Details Date Type Department Care Team (Late st Contact Info) Description 08/22/2015 Abstract [facility] [address] [facility] [address]th [place] [address] Benjamin Morel [address] [place], [place] [address] Social History Tobacco Use Types Packs/Day Years [...] documented as of this encounter Care Teams Bag Tester Relationship Specialty Start Date End Date Kassie Reyna MD [address] [address] PCP - General Internal Medicine 07/29/22 documented as of this encounter
--- OUTSIDE RECORDS SUMMARY | 2025-02-07 22:47 | XMS_ITS | Patient Health Record ---
Author Organization [facility] Address [address] [place] [address] Care Team Providers Care Commission For The Blind Director Name Role Phone Self, Self Unavailable Unavailable [...] W/U Status Risk Notes Problem Chronic pain (17587691) Other chronic pain (G89.29) Active confirmed Problem Chronic pain syndrome (574170064) Chronic pain syndrome (G89.4) Active confirmed Problem Low back pain (576624466) Low back pain (M54.5) Active confirmed Problem End stage renal disease (97701858) End stage chronic kidney disease (N18.6) Active confirmed Plan Of Treatment Pending Test Test Name Order Date UDT - POC 11/01/2019 Insurance Providers Payer Name Payer Address Payer Phone Subscriber Number Group Number Insured Name Patient Relationship to Insured Coverage Start Date Coverage End Date Medicare-[place] Medicare [address] [place] [address] [id number] Flavio Morris Self - patient is the insured [facility] [address] [address] [place] [address] [id number] Flavoi Morris Self - patient is the insured Medical (General) History Medical History History ICD Code anxiety Kidney Disease seizures allergies Surgical History Surgery Date(Month/Year) section DNC Angiogram fistula repair parathyroidectomy
--- OUTSIDE RECORDS SUMMARY | 2025-02-07 22:47 | XMS_ITS | Clinical Summary ---
Author Organization Replaced By [facility] Address [facility] [place] [address] Care Team Providers Care Director Of Acquisition Marketing Name Role Phone Donavon Aguirre MD Primary [...] 2016 PAP Smear 2016 Covid-19 Vaccine ( - season) 2025 Influenza (Flu) vaccine (1 o f 1 - Influenza standard series) 01/31/2025 04/09/2016 HIV screen Completed 06/12/2017 Hepatitis C Screening Completed 06/12/2017, 018 Procedures Procedure Name Priority Date/Time Associated Diagnosis Comments HIV SCREEN, 4TH GENERATION PERFORMABLE Routine 06/12/2017 3:52 PM EST End stage renal disease Pre-transplant evaluation for kidney transplant HEPATITIS C ANTIBODY Routine 06/12/2017 3:52 PM EST End stage renal disease Pre-transplant evaluation for kidney transplant from Last 3 Months or Most Recently Relevant to Health Maintenance Results * Hepatitis C Antibody (06/12/2017 3:52 PM EST) Hepatitis C Antibody Negative Negative [facility] Blood specimen (specimen) 06/12/2017 3:52 PM EST 06/12/2017 4:04 PM EST Narrative Resulting Agency Comment Spec In Lab Waldemar Nichols MD CHEMISTRY ORDERABLES Samira l Result [facility] [place] [address] * HIV Screen, 4th Generation (06/12/2017 3:52 PM EST) HIV Ab/Ag Screen Negative Negative [facility] Comment: This 4th Generation HIV test [...] Nichols MD CHEMISTRY ORDERABLES Samira l Result [facility] [place] [place] [address] from Last 3 Months or Most Recently Relevant to Health Maintenance Insurance MEDICARE Care Teams Director Of Acquisition Marketing Relationship Specialty Start Date End Date Donavon Aguirre MD PCP - General General Internal Medicine 06/06/17
--- OUTSIDE RECORDS SUMMARY | 2025-02-07 22:47 | XMS_ITS | Encounter Summary ---
Author Organization [facility] Address [address] [place] [address] Phone Care Team Providers Care Motorized Squad Captain Name Role Phone Rashid Helton MD Primary Care Provider [phone] Encounter Details Date Type Department Care Team (Late st Contact Info) Description 08/24/2024 Documentation Only [facility] [place], [address] [place] [phone] Waqar Wellington MD [address] [place] [address] Social History Tobacco Use Types [...] on filedocumented in this encounter Care Teams Motorized Squad Captain Relationship Specialty Start Date End Date Rashid Helton MD [facility] [address] [place] [address] PCP - General 06/12/20 documented as of this encounter
--- OUTSIDE RECORDS SUMMARY | 2025-02-07 22:47 | XMS_ITS | Encounter Summary ---
Author Organization [facility] and [facility] Address [address] [place] [address] Care Team Providers Care Building Mechanic Name Role Phone Kassie Reyna MD Primary Care Provider +1- [phone] Encounter Details Date Type Department Care Team (Late st Contact Info) Description 02/19/2021 Telephone MEDICAL ONCOLOGY [address] [place] [address] Vanessa Serrano RN Social History Tobacco Use Types Packs/Day Years Used Date Smoking Tobacco: Never Alcohol Use Standard Drinks/Week Comments No 0 (1 standard drink = 0.6 oz pur e alcohol) PHQ-2 Answer Date Recorded PHQ-2 Total Score 0 02/21/2021 Comments No Sex and Gender Information Value [...] have Coronavirus / COVID-19? No / Unsure 02/21/2021 5:59 AM EDT documented as of this encounter Plan of Treatment Not on file documented as of this encounter Visit Diagnoses Not on filedocumented in this encounter Additional Health Concerns Infection Onset Date Last Indicated Resolved Time R/O COVID-19 02/21/2021 02/21/2021 02/21/2021 8:48 AM [...] Noted Time PHQ-9 Depression Total Score: 0 02/18/20 21 1:00 PM EDT documented as of this encounter Care Teams Building Mechanic Relationship Specialty Start Date End Date Kassie Reyna MD [address] [address] PCP - General Internal Medicine 07/29/22 documented as of this encounter
--- OUTSIDE RECORDS SUMMARY | 2025-02-07 22:47 | XMS_ITS | Encounter Summary ---
Author Organization [facility] Address [address] [place] [address] Care Team Providers Care Mechanical Engineering Lecturer Name Role Phone Kassie Reyna MD Primary Care Provider [phone]- [phone] Encounter Details Date Type Department Care Team (Late st Contact Info) Description 09/12/2015 Scanned Document [facility] 800 [facility] [address] [facility] 4th [place] [address] Malick Phan MD [address] [place] [address] [place] [address] Social History Tobacco Use Types Packs/Day Years [...] Procedure Name Priority Date/Time Associated Diagnosis Comments LAB SCAN Routine 09/07/2015 documented in this encounter Results * Lab Scan (09/07/2015) Blood specimen (specimen) us Malick Phan MD LAB BLOOD ORDERABLES Final Resul t [facility] [place], [place], [facility] documented in this encounter Visit Diagnoses Not [...] documented as of this encounter Care Teams Mechanical Engineering Lecturer Relationship Specialty Start Date End Date Kassie Reyna MD [address] [address] PCP - General Internal Medicine 07/29/22 documented as of this encounter
--- OUTSIDE RECORDS SUMMARY | 2025-02-07 22:47 | XMS_ITS | Encounter Summary ---
Author Organization [facility] Address [address] [place] [address] Care Team Providers Care Help Aid Name Role Phone Kassie Reyna MD Primary Care Provider [phone]- [phone] Dialysis, [facility] Unavailable [phone] Lana Quintana MD Unavailable Gómez Whitley MD Unavailable Encounter Details Date Type Department Care Team (Late st Contact Info) Description 09/05/2022 Scanned Document [facility] Department of Nephrology and Access Surgery [place] [address] [place] [phone] Dialysis, [facility] [address] [phone] Social History Tobacco Use Types Packs/Day Years [...] on filedocumented in this encounter Care Teams Help Aid Relationship Specialty Start Date End Date Kassie Reyna MD [address] [place] [address] PCP - General Internal Medicine 12/24/21 Dialysis, [facility] [address] [place] [address] Dialysis Unit 09/05/22 Lana Quintana MD [address] [place] [address] Physician Nephrology 09/11/22 Gómez Whitley MD [address] [place] [address] Surgery, General 10/25/22 documented as of this encounter
--- OUTSIDE RECORDS SUMMARY | 2025-02-07 22:47 | XMS_ITS | Encounter Summary ---
Author Organization [facility] Address [address] [place] [address] Phone Care Team Providers Care Edge Stainer Machine Name Role Phone Rashid Helton MD Primary Care Provider [phone] Encounter Details Date Type Department Care Team (Late st Contact Info) Description 09/29/2024 Documentation Only [facility] [place], [address] [place] [phone] [place] [address] [place] [address] Social History Tobacco Use Types Packs/Day Years [...] on filedocumented in this encounter Care Teams Edge Stainer Machine Relationship Specialty Start Date End Date Rashid Helton MD [facility] [address] [place] [address] PCP - General 06/12/20 documented as of this encounter
--- OUTSIDE RECORDS SUMMARY | 2025-02-07 22:47 | XMS_ITS | Encounter Summary ---
Author Organization [facility] Address [address] [place] [address] Care Team Providers Care Clinical Laboratory Science Professor Name Role Phone Kassie Reyna MD Primary Care Provider [phone]- [phone] Dialysis, [facility] Unavailable [phone] Lana Quintana MD Unavailable [phone] Gómez Whitley MD Unavailable [phone] Encounter Details Date Type Department Care Team (Late st Contact Info) Description 09/11/2022 Scanned Document [facility] Department of Nephrology and Access Surgery [address] [phone] Noa Beatty MD [address] [place] [id number] Social History Tobacco Use Types Packs/Day Years [...] on filedocumented in this encounter Care Teams Clinical Laboratory Science Professor Relationship Specialty Start Date End Date Kassie Reyna MD [address] [place] [address] PCP - General Internal Medicine 12/24/21 Dialysis, [facility] [address] [place] [address] Dialysis Unit 09/05/22 Lana Quintana MD [address] [place] [address] Physician Nephrology 09/11/22 Gómez Whitley MD [address] [place] [address] Surgery, General 10/25/22 documented as of this encounter
[2025-02-07] MEDS: Albuterol Sulfate 7.5 MG, Albuterol Sulfate (0.083%) 2.5 MG 10 MG INHALE (22:50)
[2025-02-07 22:54] VITALS: PULSE 74; RESP 16; O2SAT 97
[2025-02-07] MEDS: oxyCODONE HCl Immed Release 15 MG TABLET PO (23:23)
--- NOTE | 2025-02-07 23:30 | PC.NURSE ---
pt a difficult stick, unable to obtain IV access, multiple RN attempts. can only use R arm d/t L fistula. aware
--- NOTE | 2025-02-07 23:56 | PC.NURSE ---
20g IV R upper arm. U/S guided by provider
[2025-02-08 00:16] LABS: Troponin-I High Sensitivity 25.9 ng/L (<3.5-17.0)
[2025-02-08 00:17] LABS: COVID-19 Test Negative (Negative); IDNOW Serial# 55D5AD1C; IDNOW Serial# 58CA691E; Influenza B2 Negative (Negative)
--- NOTE | 2025-02-08 00:48 | PC.NURSE ---
IV infiltrated. no meds given via IV
--- NOTE | 2025-02-08 01:14 | PM.IMHP ---
History of Present Illness Date of Service: 02/08/25 Attending physician on admission: Rich Mendiola Chief Complaint: Generalized body aches, chest pain, missed dialysis Patient is a 39-year-old female with a past medical history significant for ESRD on HD TTS, and seizure disorder, who presented to the ED due to chest pain/generalized body aches for the past few months since getting her fistula with revisions on 11/24 and 12/24. She reports due to her pain and generalized body aches she was unable to go to dialysis on Friday. She has been taking oxycodone 15 mg every 6 hours without relief. She does report a dry cough but denies any shortness of breath, nausea or vomiting. She last went to dialysis on . Her pain is chronic and unchanged from baseline. Labs in the emergency department indicated significant rise in creatinine 13.18, potassium of 6.3, bicarb 14, troponin flat at 24. EKG nonischemic. she received tx for hyperkalemia including calcium, bicarb, insulin, dextrose, albuterol and lokelma. K improved, down to 5.2. pt will need dialysis today. she is a poor historian and dozes off often. she reports significant pain all over, screaming out when you touch her when she is not distracted. Review of Systems Constitutional: Constitutional: Denies chills, Reports fatigue, Denies fever(s) and Denies headache(s) Eyes: Eyes: Denies change in vision ENT: Denies headache(s) and Denies sore throat Cardiovascular: Cardiovascular: Reports chest pain, Denies rapid heart rate, Denies leg edema, Denies lightheadedness and Denies dyspnea Respiratory: Respiratory: Denies chest congestion, Reports cough, Denies dyspnea and Denies wheezing Gastrointestinal: Gastrointestinal: Denies abdominal pain, Denies nausea and Denies vomiting Genitourinary: Genitourinary: Denies difficulty voiding and Denies dysuria Musculoskeletal: Musculoskeletal: Reports myalgias Integumentary/Breasts: Skin/Breast: Denies rash Neurologic: Denies confusion and Denies headache(s) Psychiatric: Psychiatric: Denies confusion Endocrine: Endocrine: Reports fatigue Hematologic/Lymphatic: Hematologic/Lymphatic: Denies easy bleeding and Denies easy bruising Allergic/Immunologic: Allergic/Immunologic: Denies wheezing [facility] Medical History Chronic hypoxic respiratory failure Seizure disorder ESRD (end stage renal disease) on dialysis Functional capacity: independent ambulation Social History Household Members: Spouse and Children Housing: House Do you presently have visiting nurse or other home services: Yes (After hospital stays) Patient Tobacco Use Status: Never used Tobacco Smoked in Last 30 Days: No Use of substances other than those prescribed or required for medical reasons: No Advance Directives: No Advance Directives Information Provided: Yes Do you have a plan to hurt others: No Plan Patient : No service: No Meds Allergies Allergy/AdvReac Type Severity Reaction Status Date / Time ANNA Inhibitors Allergy Unknown Verified 02/07/25 20:54 adhesive tape Allergy Unknown Verified 02/07/25 20:54 amlodipine Allergy Unknown Verified 02/07/25 20:54 angiotensin II acetate, human Allergy Itching Verified 02/07/25 20:54 Beta-Blockers Allergy Itching Verified 02/07/25 20:54 (Beta-Adrenergic Bloc cinacalcet (From Sensipar) Allergy Unknown Verified 02/07/25 20:54 clonidine Allergy Anaphylaxis Verified 02/07/25 20:54 doxazosin Allergy Anaphylaxis Verified 02/07/25 20:54 epoetin michael-epbx (From Allergy Unknown Verified 02/07/25 20:54 Retacrit) epoetin beta Allergy Unknown Verified 02/07/25 20:54 furosemide Allergy Unknown Verified 01/06/25 11:28 gabapentin Allergy Anaphylaxis Verified 01/06/25 11:28 heparin Allergy Unknown Verified 01/06/25 11:28 hydralazine Allergy Anaphylaxis Verified 01/06/25 11:28 hydroxyzine Allergy Unknown Verified 01/06/25 11:28 ibuprofen (From Motrin) Allergy Unknown Verified 01/06/25 11:28 isosorbide Allergy Unknown Verified 01/06/25 11:28 labetalol Allergy Eye Verified 01/06/25 11:28 Swelling latex Allergy Itching Verified 01/06/25 11:28 levofloxacin Allergy Itching Verified 01/06/25 11:28 lisinopril Allergy Itching Verified 01/06/25 11:28 losartan Allergy Unknown Verified 01/06/25 11:28 methocarbamol Allergy Unknown Verified 01/06/25 11:28 metoprolol Allergy Unknown Verified 01/06/25 11:28 Penicillins Allergy Hives Verified 01/06/25 11:28 prednisone Allergy Unknown Verified 01/06/25 11:28 spironolactone Allergy Itching Verified 01/06/25 11:28 tramadol Allergy Unknown Verified 01/06/25 11:28 Active Medications: Current Medications Acetaminophen (Acetaminophen 325 Mg Tablet) 650 mg PO Q6H PRN PRN Reason: Pain, Mild 1-3,fever,headache Benzonatate (Benzonatate 100 Mg Capsule) 100 mg PO TID PRN PRN Reason: Cough Calcium Carbonate (Calcium Carbonate 750 Mg Tab.Chew) 750 mg PO Q4H PRN PRN Reason: Heartburn Carvedilol (Carvedilol 6.25 Mg Tablet) 6.25 mg PO BID [facility]; Protocol Heparin Sodium (Porcine) (Heparin Sodium,Porcine 5,000 Unit/Ml Vial) 5,000 unit SUBCUT Q8H MARGY Hydromorphone HCl (Hydromorphone Hcl 0.5 Mg/0.5 Ml Syringe) 0.5 mg IVPUSH Q4H PRN; Protocol PRN Reason: Pain, Severe (Pain Scale 7-10) Levetiracetam (Levetiracetam 500 Mg Tablet) 500 mg PO DAILY [facility] Magnesium Hydroxide (Milk Of Magnesia 30 Ml Oral.Susp) 30 ml PO DAILY PRN PRN Reason: Constipation Melatonin (Melatonin 3 Mg Tablet) 6 mg PO BEDTIME PRN PRN Reason: Insomnia Nifedipine (Nifedipine Er 30 Mg Tab.Er.24) 30 mg PO DAILY [facility]; Protocol Oxycodone HCl (Oxycodone Hcl Immed Release 15 Mg Tablet) 15 mg PO Q4H PRN PRN Reason: Breakthrough Pain Sodium Chloride (0.9 % Sodium Chloride Flush 3 Ml Syringe) 3 ml IVFLUSH QSHIFT [facility] Home Medications ?Medication ?Instructions ?Recorded ?Confirmed ?Last Taken ?Type carvedilol 25 mg tablet 25 mg PO BID 12/30/24 01/06/25 01/06/25 History cholecalciferol (vitamin D3) 50 50 mcg PO DAILY 12/30/24 01/06/25 01/06/25 History mcg (2,000 unit) tablet (Vitamin D3) pantoprazole 40 mg tablet,delayed 40 mg PO DAILY@0630 12/30/24 01/06/25 01/06/25 History release sodium zirconium cyclosilicate 10 10 g PO DAILY 12/30/24 01/06/25 01/06/25 History gram oral powder packet (Lokelma) sucralfate 1 gram tablet 1 g PO DAILY PRN Stomach Upset 12/30/24 01/06/25 12/30/24 History levetiracetam 250 mg tablet 250 mg PO MOWEFR 01/06/25 01/06/25 01/05/25 History levetiracetam 500 mg tablet 500 mg PO DAILY 01/06/25 01/06/25 01/06/25 History nifedipine 30 mg tablet,extended 30 mg PO DAILY 01/06/25 01/06/25 01/06/25 History release 24 hr nifedipine 30 mg tablet,extended 60 mg PO BEDTIME 01/06/25 01/06/25 01/05/25 History release 24 hr sildenafil (pulm.hypertension) 20 20 mg PO BID 01/06/25 01/06/25 01/06/25 History mg tablet Physical Exam Vital Signs and Narrative: Vital Signs: Last Vital Signs Temp 98.0 F 02/07/25 20:50 Pulse 74 02/07/25 22:54 Resp 16 02/07/25 22:54 BP 169/92 H 02/07/25 22:29 Pulse Ox 98 02/07/25 22:29 O2 Del Method Room Air 02/07/25 22:29 BMI result Body Mass Index 23.5 General: AOx3, no acute distress when distracted but can call out in pain if you lightly touch her at times Resp: CTA bilaterally CVS: S1, S2, RRR GI: +BS, NT, no distention Skin: Warm, dry. LUE fistula. Neuro: Cranial nerves II-XII grossly intact bilaterally. Motor grossly intact bilaterally Extremities: No pitting edema Psych: Agitated. dozing off and slurring words. Const: General: No confusion Orientation/consciousness: No confusion Neuro: General: No confusion Results Labs 02/08/25 03:45 02/08/25 03:45 Labs: Laboratory Results - last 24 hr 02/07/25 02/07/25 21:00 23:52 MCV 95.2 MCH 30.6 MCHC 32.1 RDW 15.0 Plt Count 115 L MPV 10.2 Immature Gran % (Auto) 0.5 H Neut % (Auto) 81.4 H Lymph % (Auto) 8.2 L Gosper % (Auto) 5.6 Eos % (Auto) 3.6 Baso % (Auto) 0.7 Lymph # (Auto) 0.5 L Gosper # (Auto) 0.3 Eos # (Auto) 0.2 Baso # (Auto) 0.0 Abs Immat Gran (auto) 0.03 Absolute Neuts (auto) 4.8 Absolute Nucleated RBC 0.000 Nucleated RBC % (auto) 0.0 Anion Gap 27 H Estim Creat Clear Calc 5.2 Estimated GFR 3 Random Glucose 141 H Calcium 7.2 L Total Bilirubin 0.6 AST 21 ALT 22 Alkaline Phosphatase 107 Total Creatine Kinase 103 Total Protein 7.4 Albumin 4.0 COVID-19 (SHI) Negative COVID-19 Clin Com See Note Influenza Type A (CHRISTIE) Negative Influenza Type B (CHRISTIE) Negative Influenza A & B Note See Note Assessment and Plan (1) ESRD (end stage renal disease) on dialysis: Status: Acute (2) Hyperkalemia: Status: Acute (3) Chest pain: Status: Acute (4) Generalized body aches: Status: Acute Plan Patient is a 39-year-old female with a past medical history significant for ESRD on HD TTS, and seizure disorder, who presented to the ED due to chest pain for the past few months since getting her fistula with revisions on 11/24 and 12/24.Labs in the emergency department indicated significant rise in creatinine, 13.18, potassium of 6.3, bicarb 14, troponin flat at 24. EKG nonischemic. Hyperkalemia secondary to missed dialysis, ESRD on HD TTS - potassium 6.3, patient given albuterol, Lokelma, calcium, insulin, dextrose and bicarb - EKG okay, no significant peaked T-waves - repeat K 5.2 - troponin flat, 24.2, 25.9 on repeat - cr 13.18 - patient missed dialysis, last went on . Did not go Friday due to generalized body aches - nephrology consult, [facility] - monitor BMP Chest pain - chronic in nature, maybe exacerbated by hypokalemia - chest x-ray with questionable infiltrate/aspiration pneumonia - abdominopelvic CT with possible pulmonary edema - EKG nonischemic, troponins flat - patient not hypoxic, afebrile, no leukocytosis, pneumonia unlikely - continue to monitor on telemetry Generalized body aches - concern for opiate withdrawal, [employer] concerning for multiple providers prescribing opiates - addiction med consult - COVID/flu/RSV negative - humerus xray, chest xray and A/P CT without acute findings for pain - dilaudid PRN for pain, continue home dose oxycodone seizure disorder - continue home meds chronic anemia - hgb 7.7, hct 24.0 - no need for blood transfusion at this time - monitor CBC chronic thrombocytopenia - plt 115, at baseline - monitor CBC med rec pending full code VTE prophy: heparin Pt with acute hyperkalemia with missed dialysis requiring admission for at least 2 midnights stay for monitoring and dialysis. Quality Stroke Does the patient have a stroke diagnosis?: No VTE Prior VTE?: No VTE Risk Level:: Medical - moderate - high VTE Device Contraindication: Treatment Not Indicated VTE Drug Contraindication: N/A - Med Ordered
--- NOTE | 2025-02-08 01:52 | PC.NURSE ---
new U/S 20g IV to R upper arm placed. works well
[2025-02-08 02:35] LABS: Glucose, Whole Blood 97 mg/dL (60-115)
[2025-02-08 04:28] LABS: Alanine Aminotransferase 24 U/L (0-31); Albumin Level 4.1 g/dL (3.5-5.0); Alkaline Phosphatase 108 U/L (39-117); Anion Gap 25 (12-20); Aspartate Amino Transferase 16 U/L (5-31); Blood Urea Nitrogen 118 mg/dL (9-16); Calcium 6.9 mg/dL (8.4-10.2); Carbon Dioxide 20 mmol/L (22-29); Chloride 105 mmol/L (96-108); Creatinine Clr Calc Pharmacy 4.9; Estimated Glomerular Filt Rate 3; Potassium 5.2 mmol/L (3.3-5.1); Sodium 145 mmol/L (135-145); Total Protein 7.2 g/dL (6.5-8.0)
[2025-02-08 04:34] VITALS: BP 182/93; PULSE 76; RESP 18; TEMP 36.7; O2SAT 98
[2025-02-08 04:46] LABS: MANUAL DIFF FLAG NO
[2025-02-08 04:52] LABS: Hematocrit 22.7 % (37.0-47.0); Hemoglobin 7.4 g/dl (12.0-16.0); Imm Gran Abs Auto 0.02 X10*3/uL (0.00-0.03); Imm Gran Pct Auto 0.3 % (0.0-0.4); Lymphocytes Absolute Auto 0.7 X10*3/uL (1.2-4.9); Mean Corpuscular HGB Conc 32.6 g/dl (31.0-35.0); Mean Corpuscular Hemoglobin 30.5 pg (27.0-33.0); Mean Corpuscular Volume 93.4 fL (80.0-98.0); NRBC Abs Auto 0.000 X10*3/uL (0.0-0.012); NRBC Pct Auto 0.0 /100WBC (0.0-0.2); Platelet Count 112 X10*3/uL (160-400); Red Blood Count 2.43 X10*6/uL (4.20-5.50); White Blood Count 5.7 X10*3/uL (4.8-10.8)
[2025-02-08 05:03] LABS: Glucose, Whole Blood 73 mg/dL (60-115)
--- NOTE | 2025-02-08 05:26 | PC.NURSE ---
pt given 4 juices and crackers after critical glucose 46. POC 73 after 25 minutes. hospitalist aware. dextrose given. hospitalist at bedside. aware of high BP
[2025-02-08] MEDS: oxyCODONE HCl Immed Release 15 MG TABLET PO ×2 (05:59→21:53)
[2025-02-08 06:05] LABS: Appearance Urine Cloudy; Glucose Urine UA 250 mg/dL (Negative); PH 7.0 (5.0-9.0); Specific Gravity - Urine 1.010 (1.005-1.025); UMIC TRIGGER UACC YES
--- NOTE | 2025-02-08 06:10 | PC.NURSE ---
pt ambulated with steady gait to the bathroom. UA and VASQUEZ collected
[2025-02-08 06:16] LABS: UACC Culture Trigger YES
[2025-02-08 06:27] LABS: Cannabinoid Screen Urine Not Detected (Not Detect)
--- NOTE | 2025-02-08 06:37 | PC.NURSE ---
pt presents to ED for chest pain and generalized body aches. missed dialysis d/t pain. fistula on R arm. pt still produces urine. U/S 20g IV R upper arm. hyperkalemia 6.3. possible PNA/pulm edema? pt not hypoxic but demands O2. reports she uses O2 at home. 98% on RA. NC on for comfort. NSR on tele. nephrology and addiction consults. glucose 46 at 0345, given juice and D50. POC now 92 . pt A/O x3, ambulates with steady gait. frequently uses call larsen for pain/juice/speak with MD. BP high, hospitalist requesting to given BP meds early.
[2025-02-08 06:54] LABS: Glucose, Whole Blood 92 mg/dL (60-115)
[2025-02-08 08:10] LABS: Glucose, Whole Blood 97 mg/dL (60-115)
--- NOTE | 2025-02-08 08:40 | P.EN_ITS ---
Event Note Date of Service: 02/08/25 Event Note: 39-year-old female with a past medical history significant for ESRD on HD TTS, and seizure disorder, who presented to the ED due to chest pain for the past few months since getting her fistula with revisions on 11/24 and 12/24.Labs in the emergency department indicated significant rise in creatinine, 13.18, potassium of 6.3, bicarb 14, troponin flat at 24. EKG nonischemic. Hyperkalemia secondary to missed dialysis, ESRD on HD TTS potassium 6.3, patient given albuterol, Lokelma, calcium, insulin, dextrose and bicarb EKG okay, no significant peaked T-waves repeat K 5.2 troponin flat, 24.2, 25.9 on repeat cr 13.18 patient missed dialysis, last went on . 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
--- NOTE | 2025-02-08 08:50 | PHA.MEDREC ---
Addendum entered by Magdi Cole wai 02/08/25 11:43: MED REC REVIEWED BY [facility] Original Note: Pharmacy Consult ? Medication Reconciliation Pharmacy has completed the medication reconciliation. Spoke with pt and she was sleepy but able to verbally confirm her medications. Pt confirmed she started the Cephalexin 250mg tab 02/04 and has 1 dose left of that, she confirmed her Levetiracetam 500mg tab once daily and 250mg tab after dialysis on [facility] and confirmed she took it last Friday, she confirmed she it taking Nifedipine 30mg in the morning (claims shows 60mg QD 01/27 for 30) and 60mg at bedtime (claims shows 01/10 for 90) and pt confirmed her Sildenafil 20mg tab increased from BID to TID in the last few days.
[2025-02-08 09:19] VITALS: BP 183/98
[2025-02-08] MEDS: NIFEdipine ER 30 MG TAB.ER.24 PO (09:19)
[2025-02-08] MEDS: 0.9 % Sodium Chloride Flush 3 ML SYRINGE IVFLUSH ×2 (09:20→16:00)
--- NOTE | 2025-02-08 09:30 | PC.NURSE ---
report given to comsec manager. hub supervisor tower notified/aware. pt being transported to dialysis at this time.
--- NOTE | 2025-02-08 09:33 | PC.NURSE ---
Pt refuses heparin, stating she is allergic. Reports generalized pain. REquestsed IV pain med and benedryl prior to dialysis. Benedryl not ordered. Req PB sandwich, cannot eat most of standard tray. Pt transported to dialysis now 0934.
--- NOTE | 2025-02-08 10:51 | MHC.CM.PN ---
02/08/25 10:46 - [facility] Mgmt [id number] : 1985 Patient Age: 39 CM attempted to meet with Patient in HD but she was sleeping soundly; original IMM was left at bedside for her and a copy will be placed on the chart. From recent admission, Patient lives in a house with her Mother/HCP/Aaliyah, minor Son and Partner/Howard, who will transport at dc. 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 Home resume said services is the tentative plan and CM has initiated and will follow for dc planning. PCP is Dr. Kassie Ryena. Initialized on 02/08/25 10:46 - END OF NOTE
--- NOTE | 2025-02-08 11:00 | PM.CNNEP ---
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 She presented 02/07 with ongoing chronic chest pain, reportedly worsening since her LUE fistula revisions on 11/24 and 12/24. She is resting comfortably while receiving dialysis today on exam. No events noted. Review of Systems Review of Systems Yes all other systems are reviewed and are negative PMFSH Past Medical History Medical History Chronic hypoxic respiratory failure Seizure disorder ESRD (end stage renal disease) on dialysis Social History Social History Household Members: Family and Children Housing: House Do you presently have visiting nurse or other home services: No Patient Tobacco Use Status: Never used Tobacco Smoked in Last 30 Days: No Use of substances other than those prescribed or required for medical reasons: No Have you been hit, kicked, punched, or otherwise hurt by someone within the past year? If so, by whom?: No Do you feel safe in your current relationship?: Yes Is there a partner from a previous relationship who is making you feel unsafe now?: No Are you made to feel afraid or neglected: No Advance Directives: No Advance Directives Information Provided: Yes Do you have a plan to hurt others: No Plan Recently lost weight without trying: No Eating poorly because of decreased appetite: No Nutrition Risks: No Nutritional Risk Patient : No : No Poor oral hygiene: No service: No Meds Allergies Allergy/AdvReac Type Severity Reaction Status Date / Time ANNA Inhibitors Allergy Unknown Verified 02/07/25 20:54 adhesive tape Allergy Unknown Verified 02/07/25 20:54 amlodipine Allergy Unknown Verified 02/07/25 20:54 angiotensin II acetate, human Allergy Itching Verified 02/07/25 20:54 Beta-Blockers Allergy Itching Verified 02/07/25 20:54 (Beta-Adrenergic Bloc cinacalcet (From Sensipar) Allergy Unknown Verified 02/07/25 20:54 clonidine Allergy Anaphylaxis Verified 02/07/25 20:54 doxazosin Allergy Anaphylaxis Verified 02/07/25 20:54 epoetin michael-epbx (From Allergy Unknown Verified 02/07/25 20:54 Retacrit) epoetin beta Allergy Unknown Verified 02/07/25 20:54 furosemide Allergy Unknown Verified 01/06/25 11:28 gabapentin Allergy Anaphylaxis Verified 01/06/25 11:28 heparin Allergy Unknown Verified 01/06/25 11:28 hydralazine Allergy Anaphylaxis Verified 01/06/25 11:28 hydroxyzine Allergy Unknown Verified 01/06/25 11:28 ibuprofen (From Motrin) Allergy Unknown Verified 01/06/25 11:28 isosorbide Allergy Unknown Verified 01/06/25 11:28 labetalol Allergy Eye Verified 01/06/25 11:28 Swelling latex Allergy Itching Verified 01/06/25 11:28 levofloxacin Allergy Itching Verified 01/06/25 11:28 lisinopril Allergy Itching Verified 01/06/25 11:28 losartan Allergy Unknown Verified 01/06/25 11:28 methocarbamol Allergy Unknown Verified 01/06/25 11:28 metoprolol Allergy Unknown Verified 01/06/25 11:28 Penicillins Allergy Hives Verified 01/06/25 11:28 prednisone Allergy Unknown Verified 01/06/25 11:28 spironolactone Allergy Itching Verified 01/06/25 11:28 tramadol Allergy Unknown Verified 01/06/25 11:28 Active Medications: Current Medications Acetaminophen (Acetaminophen 325 Mg Tablet) 650 mg PO Q6H PRN PRN Reason: Pain, Mild 1-3,fever,headache Benzonatate (Benzonatate 100 Mg Capsule) 100 mg PO TID PRN PRN Reason: Cough Calcium Carbonate (Calcium Carbonate 750 Mg Tab.Chew) 750 mg PO Q4H PRN PRN Reason: Heartburn Carvedilol (Carvedilol 6.25 Mg Tablet) 6.25 mg PO BID [facility]; Protocol Last Admin: 02/08/25 14:36 Dose: Not Given Heparin Sodium (Porcine) (Heparin Sodium,Porcine 5,000 Unit/Ml Vial) 5,000 unit SUBCUT Q8H [facility] Last Admin: 02/08/25 09:42 Dose: Not Given Hydromorphone HCl (Hydromorphone Hcl 0.5 Mg/0.5 Ml Syringe) 0.5 mg IVPUSH Q4H PRN; Protocol PRN Reason: Pain, Severe (Pain Scale 7-10) Last Admin: 02/08/25 09:30 Dose: 0.5 mg Levetiracetam (Levetiracetam 500 Mg Tablet) 500 mg PO DAILY [facility] Last Admin: 02/08/25 09:18 Dose: 500 mg Magnesium Hydroxide (Milk Of Magnesia 30 Ml Oral.Susp) 30 ml PO DAILY PRN PRN Reason: Constipation Melatonin (Melatonin 3 Mg Tablet) 6 mg PO BEDTIME PRN PRN Reason: Insomnia Nifedipine (Nifedipine Er 30 Mg Tab.Er.24) 30 mg PO DAILY [facility]; Protocol Last Admin: 02/08/25 09:19 Dose: 30 mg Oxycodone HCl (Oxycodone Hcl Immed Release 15 Mg Tablet) 15 mg PO Q4H PRN PRN Reason: Breakthrough Pain Last Admin: 02/08/25 05:59 Dose: 15 mg Sodium Chloride (0.9 % Sodium Chloride Flush 3 Ml Syringe) 3 ml IVFLUSH [facility] Last Admin: 02/08/25 09:20 Dose: 3 ml Home Medications ?Medication ?Instructions ?Recorded ?Confirmed ?Last Taken ?Type carvedilol 25 mg tablet 25 mg PO BID 12/30/24 02/08/25 02/07/25 History cholecalciferol (vitamin D3) 50 50 mcg PO DAILY 12/30/24 02/08/25 02/07/25 History mcg (2,000 unit) tablet (Vitamin D3) pantoprazole 40 mg tablet,delayed 40 mg PO DAILY@0630 12/30/24 02/08/25 02/07/25 History release levetiracetam 250 mg tablet 250 mg PO TUTHSA 01/06/25 02/08/25 02/05/25 History levetiracetam 500 mg tablet 500 mg PO DAILY 01/06/25 02/08/25 02/07/25 History nifedipine 30 mg tablet,extended 30 mg PO DAILY 01/06/25 02/08/25 02/07/25 History release 24 hr sildenafil (pulm.hypertension) 20 20 mg PO TID 01/06/25 02/08/25 02/07/25 History mg tablet albuterol sulfate 90 mcg/actuation 2 puff inhalation Q6H PRN 02/08/25 02/08/25 Unknown History aerosol inhaler Shortness Of Breath Or Wheezing cephalexin 250 mg capsule 250 mg PO DAILY 02/08/25 02/08/25 02/07/25 History nifedipine 60 mg tablet,extended 60 mg PO BEDTIME 02/08/25 02/08/25 02/07/25 History release 24 hr Physical Exam Vital Signs: Last Vital Signs Temp 98.2 F 02/08/25 15:33 Pulse 67 02/08/25 15:33 Resp 20 02/08/25 15:33 BP 180/86 H 02/08/25 15:33 Pulse Ox 98 02/08/25 15:33 O2 Del Method Nasal Cannula 02/08/25 15:33 O2 Flow Rate 1 02/08/25 15:33 BMI result Body Mass Index 24.2 Const General: no acute distress Resp Effort & Inspection: normal respiratory effort Auscultation: clear to auscultation bilaterally Cardio Rate: regular rate Rhythm: regular rhythm Heart sounds: S1 normal heart sound present and S2 normal heart sound present GI Palpation (GI): Soft to palpation and nontender Skin Rashes: no rashes Extrem General: No edema Results Lab Results 02/08/25 03:45 02/08/25 03:45 Lab results: Chemistry 02/07/25 02/08/25 21:00 03:45 Sodium 142 145 Potassium 6.3 H* D 5.2 H Carbon Dioxide 14 L 20 L BUN 109 H 118 H Creatinine 13.18 H* 13.87 H* Calcium 7.2 L 6.9 L Hematology 02/07/25 02/08/25 21:00 03:45 WBC 5.9 5.7 Hgb 7.7 L 7.4 L Plt Count 115 L 112 L Urinalysis 02/08/25 05:58 Urine Color Yellow Urine Appearance Cloudy Urine pH 7.0 Ur Specific [place] 1.010 Urine Protein 100 (2+) H Urine Glucose (UA) 250 H Urine Ketones Negative Urine Blood Small (1+) H Urine Nitrite Negative Ur Leukocyte Esterase Trace H Urine RBC 0-2 Urine WBC 6-10 H Ur Squamous Epith Cells >20 Hyaline Casts 3-5 Assessment and Plan (1) ESRD (end stage renal disease) on dialysis: Status: Acute Plan ESRD on HD TTS, missed her friday HD session, last dialysis was , 01/03. elevated blood pressures likely related to hypervolemia from missed HD sessions- will get HD today. LUE fistula- +thrill, bruit. consult placed to vascular for malfunctioning fistula in lower arm. H&H 7.4 & 22- pt has listed allergy to retacrit, will hold off on epo for now. potassium 5.2- receivign HD now mild metabolic acidosis Recommend low potassium, low sodium, low phosphorous diet. Fluid restriction 1.5L/24hours daily electrolyte and renal function studies regular blood pressure checks, daily weights, I&O monitoring Discussed with Dr Longo. Procedures Date of Service Date of Service: 02/08/25
--- NOTE | 2025-02-08 11:45 | PC.NURSE ---
verbal report given to Imelda RN on IMC at this time.
--- NOTE | 2025-02-08 14:17 | PM.EVENT ---
Event Note Date of Service: 02/08/25 Event Note: Addiction consult placed for patient Patient in dilaysis most of the day Will see in AM (02/09/25) Time Spent With Patient Time: Total time managing care of this patient today ____ minutes.
[2025-02-08 14:41] VITALS: BP 149/82; PULSE 69; RESP 16; TEMP 36.1; O2SAT 96
[2025-02-08 14:47] VITALS: BMI 24.2
[2025-02-08 15:33] VITALS: BP 180/86; PULSE 67; RESP 20; TEMP 36.8; O2SAT 98
--- NOTE | 2025-02-08 16:39 | PC.NURSE ---
Per Hilda Clemons, give coreg now and hold the 2100 dose.
[2025-02-08 19:06] VITALS: BP 181/94; PULSE 68; RESP 19; TEMP 36.9; O2SAT 100
[2025-02-08 19:10] VITALS: BP 147/66; PULSE 79; RESP 19; TEMP 36.7; O2SAT 91
[2025-02-09 01:15] VITALS: BP 160/90; PULSE 76; RESP 18; TEMP 36.4; O2SAT 93
[2025-02-09] MEDS: oxyCODONE HCl Immed Release 15 MG TABLET PO ×2 (04:09→19:37)
[2025-02-09] MEDS: 0.9 % Sodium Chloride Flush 3 ML SYRINGE IVFLUSH ×4 (04:11→22:00)
[2025-02-09 07:32] VITALS: BP 161/77; PULSE 74; RESP 18; TEMP 36.6; O2SAT 98
[2025-02-09] MEDS: NIFEdipine ER 30 MG TAB.ER.24 PO (09:38)
[2025-02-09 10:30] LABS: Anion Gap 21 (12-20); Blood Urea Nitrogen 61 mg/dL (9-16); Calcium 7.4 mg/dL (8.4-10.2); Carbon Dioxide 26 mmol/L (22-29); Chloride 98 mmol/L (96-108); Creatinine Clr Calc Pharmacy 7.8; Estimated Glomerular Filt Rate 5; Potassium 5.4 mmol/L (3.3-5.1); Sodium 140 mmol/L (135-145)
--- NOTE | 2025-02-09 10:45 | P.PNNP_ITS ---
Subjective Subjective Date of Service: 02/09/25 Interval history: Here with chronic chest pain and missed dialysis session, ESRD on HD TTS. She received dialysis yesterday, breathing is comfortable today. Labs have returned to baseline levels. No events noted overnight. Physical Exam 2 Vital Signs: Vital Signs: Last Vital Signs Temp 97.9 F 02/09/25 11:37 Pulse 66 02/09/25 11:37 Resp 16 02/09/25 11:37 BP 160/74 H 02/09/25 11:37 Pulse Ox 98 02/09/25 11:37 O2 Del Method Nasal Cannula 02/09/25 11:37 O2 Flow Rate 2 02/09/25 11:37 BMI result Body Mass Index 24.2 Const: General: no acute distress, alert and awake Resp: Effort & Inspection: normal respiratory effort and able to speak in complete sentences Auscultation: clear to auscultation bilaterally Cardio: Rate: regular rate Rhythm: regular rhythm Heart sounds: S1 normal heart sound present and S2 normal heart sound present GI: Palpation (GI): Soft to palpation and nontender Skin: Rashes: no rashes Extrem: General: No edema Objective Data Labs 02/08/25 03:45 02/09/25 09:38 Labs: Laboratory Results - last 24 hr 02/09/25 02/09/25 02/09/25 09:38 09:38 09:38 Sodium Cancelled 140 Potassium Cancelled 5.4 H Chloride Cancelled Carbon Dioxide Anion Gap BUN Creatinine Estim Creat Clear Calc Estimated GFR Random Glucose Calcium Phosphorus 02/09/25 02/09/25 02/09/25 09:38 09:38 09:38 Sodium Potassium Chloride 98 Carbon Dioxide Cancelled 26 Anion Gap Cancelled 21 H BUN Cancelled Creatinine Estim Creat Clear Calc Estimated GFR Random Glucose Calcium Phosphorus 02/09/25 02/09/25 02/09/25 09:38 09:38 09:38 Sodium Potassium Chloride Carbon Dioxide Anion Gap BUN 61 H Creatinine Cancelled 8.77 H* Estim Creat Clear Calc Cancelled 7.8 Estimated GFR Cancelled Random Glucose Calcium Phosphorus 02/09/25 02/09/25 02/09/25 09:38 09:38 09:38 Sodium Potassium Chloride Carbon Dioxide Anion Gap BUN Creatinine Estim Creat Clear Calc Estimated GFR 5 Random Glucose Cancelled 109 Calcium Cancelled 7.4 L D Phosphorus 5.0 H Microbiology Microbiology Results: Microbiology 02/08/25 05:58 Urine clean catch - Clean Catch Midstream Urine Culture - Preliminary No growth to date. Procedures Date of Service Date of Service: 02/09/25 Assessment & Plan Assessment and plan (1) ESRD (end stage renal disease) on dialysis: Status: Acute Plan ESRD on HD TTS, dialyzed yesterday 02/08/25. LUE fistula- +thrill, bruit. No erythema around AV fistula. H&H 7.4 & 22.7- pt has listed allergy to retacrit, will hold off on epo for now. potassium 5.4- lokelma PRN if potassium is 6.0 or higher between dialysis sessions phosphorus 5.0- pt not on outpatient binders. calcium 7.4 no metabolic acidosis Recommend low potassium, low sodium, low phosphorous diet. Fluid restriction 1.5L/24hours patient is ok for discharge from a renal standpoint- she should continue outpatient dialysis as per her regular schedule. Discussed with Dr Diaz Time Spent With Patient Time: Total time managing care of this patient today ____ minutes. Progress Note: Quality Stroke Does the patient have a stroke diagnosis?: No
--- NOTE | 2025-02-09 11:02 | P.PNIM_ITS ---
Subjective Subjective Date of Service: 02/09/25 Review of Systems Follow up Hyperkalemia doing better today c/o right arm pain Physical Exam 2 Exam: Exam: Appearing in no acute distress lung sounds are clear to auscultation heart regular rate rhythm, clear S1, S2 positive bowel sounds, abdomen is soft, nontender neuro patient is alert x3, no focal deficits Left AV fistula Vital Signs: Vital Signs: Last Vital Signs Temp 97.9 F 02/09/25 07:32 Pulse 74 02/09/25 07:32 Resp 18 02/09/25 07:32 BP 161/77 H 02/09/25 07:32 Pulse Ox 98 02/09/25 07:32 O2 Del Method Nasal Cannula 02/09/25 07:32 O2 Flow Rate 2 02/09/25 07:32 BMI result Body Mass Index 24.2 Objective Data Active Medications Acetaminophen (Acetaminophen 325 Mg Tablet) 650 mg PO Q6H PRN PRN Reason: Pain, Mild 1-3,fever,headache Last Admin: 02/09/25 06:01 Dose: 650 mg Documented By: HOMER Benzonatate (Benzonatate 100 Mg Capsule) 100 mg PO TID PRN PRN Reason: Cough Calcium Carbonate (Calcium Carbonate 750 Mg Tab.Chew) 750 mg PO Q4H PRN PRN Reason: Heartburn Carvedilol (Carvedilol 25 Mg Tablet) 25 mg PO BID COUNTS INCLUDE 234 BEDS AT THE [facility]; Protocol Last Admin: 02/09/25 09:39 Dose: 25 mg Documented By: MICHAEL Heparin Sodium (Porcine) (Heparin Sodium,Porcine 5,000 Unit/Ml Vial) 5,000 unit SUBCUT Q8H COUNTS INCLUDE 234 BEDS AT THE [facility] Last Admin: 02/09/25 05:35 Dose: Not Given Documented By: HOMER Non-Admin Reason: Patient Refused Hydromorphone HCl (Hydromorphone Hcl 0.5 Mg/0.5 Ml Syringe) 0.5 mg IVPUSH Q4H PRN; Protocol PRN Reason: Pain, Severe (Pain Scale 7-10) Last Admin: 02/09/25 09:43 Dose: 0.5 mg Documented By: MICHAEL Levetiracetam (Levetiracetam 500 Mg Tablet) 500 mg PO DAILY COUNTS INCLUDE 234 BEDS AT THE [facility] Last Admin: 02/09/25 09:39 Dose: 500 mg Documented By: MICHAEL Magnesium Hydroxide (Milk Of Magnesia 30 Ml Oral.Susp) 30 ml PO DAILY PRN PRN Reason: Constipation Melatonin (Melatonin 3 Mg Tablet) 6 mg PO BEDTIME PRN PRN Reason: Insomnia Nifedipine (Nifedipine Er 30 Mg Tab.Er.24) 30 mg PO DAILY COUNTS INCLUDE 234 BEDS AT THE [facility]; Protocol Last Admin: 02/09/25 09:38 Dose: 30 mg Documented By: MICHAEL Oxycodone HCl (Oxycodone Hcl Immed Release 15 Mg Tablet) 15 mg PO Q4H PRN PRN Reason: Breakthrough Pain Last Admin: 02/09/25 04:09 Dose: 15 mg Documented By: HOMER Sodium Chloride (0.9 % Sodium Chloride Flush 3 Ml Syringe) 3 ml IVFLUSH QSHIFT COUNTS INCLUDE 234 BEDS AT THE [facility] Last Admin: 02/09/25 09:38 Dose: 3 ml Documented By: MICHAEL Labs 02/08/25 03:45 02/09/25 09:38 Labs: Laboratory Results - last 24 hr 02/09/25 02/09/25 02/09/25 09:38 09:38 09:38 Anion Gap Cancelled 21 H Estim Creat Clear Calc Cancelled 7.8 Estimated GFR Cancelled Random Glucose Calcium Phosphorus 02/09/25 02/09/25 02/09/25 09:38 09:38 09:38 Anion Gap Estim Creat Clear Calc Estimated GFR 5 Random Glucose Cancelled 109 Calcium Cancelled 7.4 L D Phosphorus 5.0 H Microbiology Microbiology Results: Microbiology 02/08/25 05:58 Urine Culture - Preliminary Urine clean catch - Clean Catch Midstream No growth to date. Assessment and Plan (1) ESRD (end stage renal disease) on dialysis: Status: Acute Plan 39-year-old female with a past medical history significant for ESRD on HD TTS, and seizure disorder, who presented to the ED due to chest pain for the past few months since getting her fistula with revisions on 11/24 and 12/24.Labs in the emergency department indicated significant rise in creatinine, 13.18, potassium of 6.3, bicarb 14, troponin flat at 24. EKG nonischemic. Vaginal discharge and itching concern for yeast infection fluconazole 150 mg x1 UTI ua positive dysuria give ceftin 250 mg daily, renally dosed Hyperkalemia secondary to missed dialysis, ESRD on HD TTS EKG okay, no significant peaked T-waves troponin flat, 24.2, 25.9 on repeat patient missed dialysis, last went on last week. 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
[2025-02-09 11:37] VITALS: BP 160/74; PULSE 66; RESP 16; TEMP 36.6; O2SAT 98
[2025-02-09 16:00] VITALS: BP 148/79; PULSE 71; RESP 16; TEMP 36.6; O2SAT 100
[2025-02-09 19:35] VITALS: BP 162/83; PULSE 66; RESP 19; TEMP 36.4; O2SAT 100
[2025-02-10] VITALS: BP 160/82; PULSE 67; RESP 19; TEMP 36.6; O2SAT 92
[2025-02-10 03:28] VITALS: BP 168/94; PULSE 72; RESP 19; TEMP 36.6; O2SAT 96
[2025-02-10] MEDS: oxyCODONE HCl Immed Release 15 MG TABLET PO ×3 (05:15→17:20)
[2025-02-10 07:29] VITALS: BP 161/78; PULSE 74; RESP 18; TEMP 36.9; O2SAT 94
[2025-02-10] MEDS: NIFEdipine ER 30 MG TAB.ER.24 PO (08:01)
[2025-02-10] MEDS: 0.9 % Sodium Chloride Flush 3 ML SYRINGE IVFLUSH (08:02)
--- NOTE | 2025-02-10 10:45 | P.PNNPD_ITS ---
Subjective Subjective Date of Service: 02/10/25 This patient was seen during dialysis. Interval history: Here with chronic chest pain and missed dialysis session, ESRD on HD TTS, currently on dialysis and resting comfortably. No events noted. Physical Exam Vital Signs: Vital Signs: Last Vital Signs Temp 98.4 F 02/10/25 07:29 Pulse 74 02/10/25 07:29 Resp 18 02/10/25 07:29 BP 161/78 H 02/10/25 07:29 Pulse Ox 94 02/10/25 07:29 O2 Del Method Nasal Cannula 02/10/25 07:29 O2 Flow Rate 2 02/10/25 07:29 BMI result Body Mass Index 24.2 Const: General: no acute distress, alert and awake Resp: Effort & Inspection: normal respiratory effort and able to speak in complete sentences Auscultation: clear to auscultation bilaterally Cardio: Rate: regular rate Rhythm: regular rhythm Heart sounds: S1 normal heart sound present and S2 normal heart sound present GI: Palpation (GI): Soft to palpation and nontender Skin: Rashes: no rashes Extrem: General: No edema Assessment & Plan Assessment and plan (1) ESRD (end stage renal disease) on dialysis: Status: Acute Plan ESRD on HD TTS, dialyzed yesterday 02/08/25. LUE fistula- +thrill, bruit. No erythema around AV fistula. H&H 7.4 & 22.7- pt has listed allergy to retacrit, will hold off on epo for now. potassium 5.4- lokelma PRN if potassium is 6.0 or higher between dialysis sessions phosphorus 5.0- pt not on outpatient binders. calcium 7.4 no metabolic acidosis Recommend low potassium, low sodium, low phosphorous diet. Fluid restriction 1.5L/24hours patient is ok for discharge from a renal standpoint- she should continue outpa tient dialysis as per her regular schedule. Discussed with Dr Diaz Time Spent With Patient Time: Total time managing care of this patient today ____ minutes. Procedures Date of Service Date of Service: 02/10/25
--- NOTE | 2025-02-10 12:56 | P.DS_ITS ---
DS: Providers Provider Date of Service: 02/10/25 Date of admission: 02/08/25 00:53 Date of discharge: 02/10/25 Primary care physician: Kassie Reyna MD Consults: 02/08/25 00:52 Consult to Nephrology Routine Consulting Provider: [facility] [place] [facility] Reason for consultation: ESRD; missed HD; Hyperkalemia; DS: Diagnosis Discharge Diagnosis (1) ESRD (end stage renal disease) on dialysis: Status: Acute DS: Summary Hospital Course Hospital Course: 39-year-old female with a past medical history significant for ESRD on HD TTS, and seizure disorder, who presented to the ED due to chest pain/generalized body aches for the past few months since getting her fistula with revisions on 11/24 and 12/24. She reports due to her pain and generalized body aches she was unable to go to dialysis on Friday. She has been taking oxycodone 15 mg every 6 hours without relief. She does report a dry cough but denies any shortness of breath, nausea or vomiting. She last went to dialysis on . Her pain is chronic and unchanged from baseline. Labs in the emergency department indicated significant rise in creatinine 13.18, potassium of 6.3, bicarb 14, troponin flat at 24. EKG nonischemic. she received tx for hyperkalemia including calcium, bicarb, insulin, dextrose, albuterol and lokelma. K improved, down to 5.2. pt will need dialysis today. Hospital Course Patient admitted to telemetry where monitor failed to demonstrate any acute dysrhythmias. She received 2 rounds of dialysis during this admission. A referral has been made to Cardiology for outpatient follow up and risk stratification prior to transplantation. Time Attestation Discharge Coordination Time (in mins): 35 Quality: Safe Use of Opioids Does Pt have an Active Cancer Diagnosis on the Problem List?: No Quality: Stroke Does the patient have a stroke diagnosis?: No Physical Exam Vital Signs: Vital Signs: Last Vital Signs Temp 98.4 F 02/10/25 07:29 Pulse 74 02/10/25 07:29 Resp 18 02/10/25 07:29 BP 161/78 H 02/10/25 07:29 Pulse Ox 94 02/10/25 07:29 O2 Del Method Nasal Cannula 02/10/25 07:29 O2 Flow Rate 2 02/10/25 07:29 BMI result Body Mass Index 24.2 Const: Other: Awake alert no acute distress Resp: Other: Clear to auscultation bilaterally no rales rhonchi or wheezes Cardio: Other: No S4; positive S1-S2; no S3 murmurs rubs or gallops GI: Other: Soft nontender nondistended normoactive bowel sounds Extrem: Other: No edema bilaterally DS: Data Data Completed and Pending Completed studies during hospitalization [Text1]: Procedures Performance of Urinary Filtration, Intermittent, Less than 6 Hours Per Day (01/06/25) Discharge Plan Discharge Anticipated Discharge Date/Time: 02/10/25 12:47 Patient Disposition: Home, Self-Care Discharge Diagnosis: Hyperkalemia in backdrop of end-stage renal disease on hemodialysis Referrals: Kassie Reyna MD [Primary Care Provider, Internal Medicine] - 1 Week Discharge Medications: New oxycodone 15 mg Tablet 15 mg PO Q4H PRN (Reason: Breakthrough Pain) Qty: 20 0RF Rx Instructions: Partial Fill upon patient request. Continued carvedilol 25 mg tablet 25 mg PO BID pantoprazole 40 mg tablet,delayed release (DR/EC) 40 mg PO DAILY@0630 cholecalciferol (vitamin D3) [Vitamin D3] 50 mcg (2,000 unit) tablet 50 mcg PO DAILY cephalexin 250 mg capsule 250 mg PO DAILY nifedipine 60 mg tablet extended release 24hr 60 mg PO BEDTIME albuterol sulfate 90 mcg/actuation HFA aerosol inhaler 2 puff inhalation Q6H PRN (Reason: Shortness Of Breath Or Wheezing) sildenafil (pulm.hypertension) 20 mg tablet 20 mg PO TID nifedipine 30 mg tablet extended release 24hr 30 mg PO DAILY levetiracetam 500 mg tablet 500 mg PO DAILY levetiracetam 250 mg tablet 250 mg PO TUTHSA Discharge Orders: Discharge Order (Routine); Ordered 02/10/25 Ordered By: Tin Silva Diet: Advance to usual diet Activity on Discharge: As tolerated Stand Alone Forms: Patient Portal Discharge page Print Language: Bengali Care Plan Goals: Continue all medicines as taken prior to hospitalization. Oxycodone has been given for chest pain Health Concerns: Cardiology will call you to book a new patient appointment with Dr. Du Plan of Treatment: Follow up with Nephrology PCP and Dr. Du as scheduled Assessment: See discharge summary
--- NOTE | 2025-02-10 12:56 | MHC.CM.PN ---
Patient has been medically cleared for dc to home today, self care. Last IMM was addressed on 02/08/2025.
== END 2025-02-10 18:00 | disposition home or self-care (01) | DRG 640 ==
LOC: HO.ED 02-08 01:02 → HO.EDOVER 02-08 01:09 → HO.IMC 02-08 11:40
PROVIDERS: Nurse Practitioner Acute Care; Nurse Practitioner Family; Physician Assistant; Admitting Provider Hospitalist; Emergency Provider Emergency Medicine; PCP Internal Medicine; Visit Provider Hospitalist
DX: E87.70 Fluid overload, unspecified (principal); N18.6 End stage renal disease; I12.0 Hypertensive chronic kidney disease with stage 5 chronic kidney disease or end stage renal disease; J96.11 Chronic respiratory failure with hypoxia; E87.5 Hyperkalemia; D69.6 Thrombocytopenia, unspecified; G40.909 Epilepsy, unspecified, not intractable, without status epilepticus; B37.31 Acute candidiasis of vulva and vagina; Z99.81 Dependence on supplemental oxygen; Z20.822 Contact with and (suspected) exposure to COVID-19; Z99.2 Dependence on renal dialysis; Z91.158 Patient's noncompliance with renal dialysis for other reason; Z79.899 Other long term (current) drug therapy
CPT/HCPCS: 36415; 71045; 73060; 74176; 80048; 80053; 80307; 81001; 82550; 82947; 84100; 84484; 85025; 87086; 87502; 87635; 90999; 93005; 93971; 99285; J1171; J1200; J1630; J1644

== ENCOUNTER → 2025-02-07 20:41 | Outpatient (BNV) | payer MEDICARE, MEDICAID, SELFPAY | PROVIDERS: Admitting Provider Hospitalist; Emergency Provider Emergency Medicine; Visit Provider Internal Medicine Cardiovascular Disease | DX: R94.31 Abnormal electrocardiogram [ECG] [EKG] (principal); R07.9 Chest pain, unspecified | CPT/HCPCS: 93010 ==

== ENCOUNTER 2025-02-08 00:53 | Outpatient (BNV) | payer MEDICARE, MEDICAID, SELFPAY | END 2025-02-09 13:21 | PROVIDERS: Admitting Provider Hospitalist; Emergency Provider Emergency Medicine; PCP Internal Medicine; Visit Provider Radiology Diagnostic Radiology | DX: I82.611 Acute embolism and thrombosis of superficial veins of right upper extremity (principal) | CPT/HCPCS: 93971 ==

== ENCOUNTER → 2025-02-08 00:53 | Outpatient (BNV) | payer MEDICARE, MEDICAID, SELFPAY | PROVIDERS: Admitting Provider Hospitalist; Emergency Provider Emergency Medicine; PCP Internal Medicine; Visit Provider Nurse Practitioner Family | DX: N18.6 End stage renal disease (principal); Z99.2 Dependence on renal dialysis | CPT/HCPCS: 99222; 99231 ==

== ENCOUNTER → 2025-02-08 00:53 | Outpatient (BNV) | payer MEDICARE, MEDICAID, SELFPAY | PROVIDERS: Admitting Provider Hospitalist; Emergency Provider Emergency Medicine; PCP Internal Medicine; Visit Provider Nurse Practitioner Acute Care | DX: N18.6 End stage renal disease (principal); Z99.2 Dependence on renal dialysis | CPT/HCPCS: 99223; 99232; 99239; 99499 ==

== ENCOUNTER → 2025-02-08 | Outpatient (BNV) | payer MEDICARE, MEDICAID, SELFPAY | PROVIDERS: Admitting Provider Hospitalist; Emergency Provider Emergency Medicine; Visit Provider Radiology Diagnostic Radiology | DX: R16.2 Hepatomegaly with splenomegaly, not elsewhere classified (principal); R07.9 Chest pain, unspecified; R22.41 Localized swelling, mass and lump, right lower limb | CPT/HCPCS: 71045; 73060; 74176 ==

== ENCOUNTER 2025-02-12 04:53 | Emergency (ER) | payer MEDICARE, MEDICAID, SELFPAY ==
--- OUTSIDE RECORDS SUMMARY | 2024-01-17 05:00 | XMS_ITS ---
Author Organization [facility] Address [address] [place] [address] [phone] Care Team Providers Care Tube Splicer Name Role Phone Migration, Provider Unavailable Unavailable REASON FOR VISIT [place] [place] Encounter Location Date Provider Diagnosis [facility] [address] [place] [address] [phone] 01/17/2024 Provider Migration Plan Of Treatment No Information Progress Notes * DAVI OROZCOHARRISONDOB: [birth year] (39 yo F)Acc No.[id number]:01/17/2024 Patient: HIMA CORTEZ :1985 A ge:38 Y S ex:Female Address:[address] [place] [address], [address] Subjective: * Chief Complaints: * E MR-Stone * Medical History: * Surgical History: * Hospitalization/Major Diagno stic Procedure: * Medications: Objective: * Vitals: * Physical Examination: Assessment: Plan: * Treatment: * Procedure Codes: * * Date:
--- OUTSIDE RECORDS SUMMARY | 2024-01-18 05:00 | XMS_ITS ---
Author Organization [facility] Address [address] [place] [address] [phone] Care Team Providers Care Elementary School Director Name Role Phone Migration, Provider Unavailable Unavailable REASON FOR VISIT EMR-[facility] [place] Encounters Encounter Location Date Provider Diagnosis [facility] [address] [place] [address] [phone] 01/18/2024 Provider Migration Plan Of Treatment No Information Progress Notes * DAVI OROZCOHARRISONDOB: [birth year] (39 yo F)Acc No.[id number]:01/18/2024 Patient: HIMA CORTEZ :1985 A ge:38 Y S ex:Female Address:[address] [place] [address], [address] Subjective: * Chief Complaints: * E MR-Stone * Medical History: * Surgical History: * Hospitalization/Major Diagno stic Procedure: * Medications: Objective: * Vitals: * Physical Examination: Assessment: Plan: * Treatment: * Procedure Codes: * * Date:
[2025-02-12] VITALS (9 sets, daily range): BP systolic 181–225; BP diastolic 85–103; PULSE 76–85; RESP 11–18; TEMP -17.7–36.7; O2SAT 91–100; BMI 23.6
--- NOTE | ~2025-02-12 | XR_ITS ---
CLINICAL HISTORY: sob 1 view chest x-ray Comparison: CR - XR CHEST 1V - 02/08/25 02:14 EDT Findings: Persistent patchy multifocal airspace density, slightly improved. Normal size heart. No acute fracture. IMPRESSION: Persistent patchy multifocal airspace density, slightly improved. This document has been electronically signed by: Gurinder Asencio MD on 02/12/2025 06:25:16
--- NOTE | 2025-02-12 05:18 | ECG_ITS ---
Test Reason : SOB Blood Pressure : */* mmHG Vent. Rate : 78 BPM Atrial Rate : 78 BPM P-R Int : 180 ms QRS Dur : 84 ms QT Int : 430 ms P-R-T Axes : 70 18 181 degrees QTcB Int : 490 ms Normal sinus rhythm Moderate voltage criteria for LVH, may be normal variant ( Sokolow-Rob , [place] product ) ST & T wave abnormality, consider lateral ischemia Prolonged QT Abnormal ECG When compared with ECG of 07-Feb-2025 20:41, Criteria for Septal infarct are no longer Present T wave inversion more evident in Lateral leads Referred By: Sheree Shaver Electronically Signed By: ROXANA RENTERIA MD
[2025-02-12 05:58] LABS: MANUAL DIFF FLAG NO
[2025-02-12 06:01] LABS: Hematocrit 21.3 % (37.0-47.0); Imm Gran Abs Auto 0.03 X10*3/uL (0.00-0.03); Imm Gran Pct Auto 0.5 % (0.0-0.4); Lymphocytes Absolute Auto 0.5 X10*3/uL (1.2-4.9); Mean Corpuscular HGB Conc 32.9 g/dl (31.0-35.0); Mean Corpuscular Hemoglobin 30.8 pg (27.0-33.0); Mean Corpuscular Volume 93.8 fL (80.0-98.0); NRBC Abs Auto 0.000 X10*3/uL (0.0-0.012); NRBC Pct Auto 0.0 /100WBC (0.0-0.2); Red Blood Count 2.27 X10*6/uL (4.20-5.50); White Blood Count 5.7 X10*3/uL (4.8-10.8)
--- OUTSIDE RECORDS SUMMARY | 2025-02-12 06:02 | XMS_ITS | Encounter Summary ---
Author Organization [facility] Address [address] [place] [address] Care Team Providers Care Manager Of Operations Name Role Phone Kassie Reyna MD Primary Care Provider +1- [phone] Dialysis, [facility] Unavailable [phone] Lana Quintana MD Unavailable Gómez Whitley MD Unavailable [phone] Encounter Details Date Type Department Care Team (Late st Contact Info) Description 08/19/2023 Scanned Document [facility] Department of Nephrology and Access Surgery [place] [address] [place] [phone] Lana Quintana MD [address] [address] Social History Tobacco Use Types Packs/Day Years [...] on filedocumented in this encounter Care Teams Manager Of Operations Relationship Specialty Start Date End Date Kassie Reyna MD [address] [place] [address] PCP - General Internal Medicine 12/24/21 Dialysis, [facility] [address] [place] [address] Dialysis Unit 09/05/22 Lana Quintana MD [address] [place] [address] Physician Nephrology 09/11/22 Gómez Whitley MD [address] [place] [address] Surgery, General 10/25/22 documented as of this encounter
--- OUTSIDE RECORDS SUMMARY | 2025-02-12 06:02 | XMS_ITS | Encounter Summary ---
Author Organization [facility] Address [address] [place] [address] Phone Care Team Providers Care Pharmacy Service Associate Name Role Phone Kassie Reyna MD Primary Care Provider + Encounter Details Date Type Department Care Team (Late st Contact Info) Description 11/16/2024 [facility] [address] [place] [address] Social History Tobacco Use Types Packs/Day Years [...] 03/22/2025 3:00 PM EDT Office [place] [facility] [address] [place] [address], 2nd Floor, [address] [place] [address] Zlueika Adams MD [address] [place] [address] [address] [place] [address] [email or web address] documented as of this encounter Goals Goal [...] cell phone pictures and video calls like [employer]. If patient is found to be recording [...] on filedocumented in this encounter Care Teams Pharmacy Service Associate Relationship Specialty Start Date End Date Kassie Reyna MD [address] [place] [address] PCP - General Internal Medicine 12/17/21 documented as of this encounter Additional Source Comments The information contained in this document represents components of the legal health record. It is not the complete legal health record.[facility]
--- OUTSIDE RECORDS SUMMARY | 2025-02-12 06:02 | XMS_ITS | Encounter Summary ---
Author Organization [facility] Address [address] [place] [address] Care Team Providers Care General Assistant Name Role Phone Kassie Reyna MD Primary Care Provider [phone]- [phone] Dialysis, [facility] Unavailable [phone] Lana Quintana MD Unavailable Gómez Whitley MD Unavailable Encounter Details Date Type Department Care Team (Late st Contact Info) Description 10/25/2022 Scanned Document [facility] Department of Nephrology and Access Surgery [address] [phone] Woody Freire, DO [address] [facility] [address] [place], [place] [id number] Social History Tobacco Use Types Packs/Day Years [...] on filedocumented in this encounter Care Teams General Assistant Relationship Specialty Start Date End Date Kassie Reyna MD [address] [place] [address] PCP - General Internal Medicine 12/24/21 Dialysis, [facility] [address] [place] [address] Dialysis Unit 09/05/22 Lana Quintana MD [address] [place] [address] Physician Nephrology 09/11/22 Gómez Whitley MD [address] [place] [address] Surgery, General 10/25/22 documented as of this encounter
--- OUTSIDE RECORDS SUMMARY | 2025-02-12 06:02 | XMS_ITS | Encounter Summary ---
Author Organization [facility] Address [address] [place] [address] Care Team Providers Care Pension Administrator Name Role Phone Kassie Reyna MD Primary Care Provider [phone]- [phone] Encounter Details Date Type Department Care Team (Late st Contact Info) Description 08/18/2023 Abstract [facility] [address] [facility] [address] [facility] [address] [place] [address] Taylor De León, MIKE Social History Tobacco [...] documented as of this encounter Care Teams Pension Administrator Relationship Specialty Start Date End Date Kassie Reyna MD 3400 [facility] 1 [place] [address] PCP - General Internal Medicine 07/29/22 documented as of this encounter
--- OUTSIDE RECORDS SUMMARY | 2025-02-12 06:02 | XMS_ITS | Encounter Summary ---
Author Organization [facility] Address [address] [place] [address] Phone Care Team Providers Care Industrial Hygenist Name Role Phone Kassie Reyna MD Primary Care Provider + Encounter Details Date Type Department Care Team (Late st Contact Info) Description 11/19/2024 Procedure Pass [facility] [address] [place] [address] Social History Tobacco Use Types [...] Description 03/22/2025 3:00 PM EDT Office Visit [facility] [address] [place] [address], 2nd Floor, [address] [place] [address] Zuleika Adams MD [address] [place] [address] [address] [place] [address] [email or web address] [place] documented as of this encounter Goals [...] cell phone pictures and video calls like [employer]. If patient is found to be recording [...] filedocumented in this encounter Care Teams Industrial Hygenist Relationship Specialty Start Date End Date Kassie Reyna MD [address] [place] [address] PCP - General Internal Medicine 12/17/21 documented as of this encounter Additional Source Comments The information contained in this document represents components of the legal health record. It is not the complete legal health record.[facility]
--- OUTSIDE RECORDS SUMMARY | 2025-02-12 06:02 | XMS_ITS | Encounter Summary ---
Author Organization [facility] Address [address] [place] [address] Phone Care Team Providers Care Doctor Of Naprapathy Name Role Phone Kassie Reyna MD Primary Care Provider + Encounter Details Date Type Department Care Team (Late st Contact Info) Description 11/16/[address] Mook [address] [facility], 2nd Floor, [address] [place] [address] Social History Tobacco Use Types Packs/Day Years [...] Description 03/22/2025 3:00 PM EDT Office [place] [facility] [address] [place] [address], 2nd Floor, [address] [place] [address] Zuleika Adams MD [address] [place] [address] 148 [place] [address] [email or web address] [email or web address] documented as of this encounter [...] cell phone pictures and video calls like [employer]. If patient is found to be recording [...] on filedocumented in this encounter Care Teams Doctor Of Naprapathy Relationship Specialty Start Date End Date Kassie Reyna MD [address] [place] [address] PCP - General Internal Medicine 12/17/21 documented as of this encounter Additional Source Comments The information contained in this document represents components of the legal health record. It is not the complete legal health record.[facility]
--- OUTSIDE RECORDS SUMMARY | 2025-02-12 06:02 | XMS_ITS | Encounter Summary ---
Author Organization [facility] Address [address] [place] [address] Phone Care Team Providers Care Medical Technologist Generalist Name Role Phone Kassie Reyna MD Primary Care Provider + Encounter Details Date Type Department Care Team (Late st Contact Info) Description 11/01/2024 Procedure Pass [facility] [place], [address], Floor 1 [place] [address] Social History Tobacco Use Types Packs/Day Years [...] 2:14 AM EDT Daria Arechiga RN * [place] Suicide Severity Rating Scale (Screener/Recent Self-Report) Question [...] Description 03/22/2025 3:00 PM EDT Office Visit [facility] [address] [facility], 2nd Floor, [address] [place] [address] Zuleika Adams MD [address] [place] [address] [address] [place] [address] [email or web address] [place] documented as of this encounter Visit Diagnoses Not on filedocumented in this encounter Care Teams Medical Technologist Generalist Relationship Specialty Start Date End Date Kassie Reyna MD [address] [place] [address] PCP - General Internal Medicine 12/17/21 documented as of this encounter Additional Source Comments The information contained in this document represents components of the legal health record. It is not the complete legal health record.[facility]
--- OUTSIDE RECORDS SUMMARY | 2025-02-12 06:02 | XMS_ITS | Encounter Summary ---
Author Organization [facility] Address [address] [place] [address] Phone Care Team Providers Care Weaver Hand Name Role Phone Kassie Reyna MD Primary Care Provider + Encounter Details Date Type Department Care Team (Late st Contact Info) Description 11/09/2024 Procedure Pass [facility] Cardiac Cash Sales Audit Clerk [address] [facility], Floor 9, [address] [place] [address] Social History Tobacco Use Types [...] Description 03/22/2025 3:00 PM EDT Office Visit [facility] [address] [place] [address], 2nd Floor, [address] [place] [address] Zuleika Adams MD [address] [place] [address] 148 [place] [address] [email or web address] documented as of this encounter Visit Diagnoses Not on filedocumented in this encounter Care Teams Weaver Hand Relationship Specialty Start Date End Date Kassie Reyna MD [facility] [place] [address] PCP - General Internal Medicine 12/17/21 documented as of this encounter Additional Source Comments The information contained in this document represents components of the legal health record. It is not the complete legal health record.[facility]
--- OUTSIDE RECORDS SUMMARY | 2025-02-12 06:02 | XMS_ITS | Encounter Summary ---
Author Organization [facility] Address [address] [place] [address] Phone Care Team Providers Care Retail Link Analyst Name Role Phone Kassie Reyna MD Primary Care Provider + Encounter Details Date Type Department Care Team (Late st Contact Info) Description 11/16/[address] Mook [address] [facility], 2nd Floor, [address] [place] [address] Social History Tobacco Use Types Packs/Day Years [...] Description 03/22/2025 3:00 PM EDT Office Visit [facility] [address] [place] [address], 2nd Floor, [address] [place] [address] Zuleika Adams MD [address] [place] [address] 148 [place] [address] [email or web address] documented as of this encounter [...] cell phone pictures and video calls like [employer]. If patient is found to be recording [...] filedocumented in this encounter Care Teams Retail Link Analyst Relationship Specialty Start Date End Date Kassie Reyna MD [address] [place] [address] PCP - General Internal Medicine 12/17/21 documented as of this encounter Additional Source Comments The information contained in this document represents components of the legal health record. It is not the complete legal health record.[facility]
--- OUTSIDE RECORDS SUMMARY | 2025-02-12 06:02 | XMS_ITS | Encounter Summary ---
Author Organization [facility] Address [address] [place] [address] Phone Care Team Providers Care Explosive Ordnance Specialist Name Role Phone Kassie Reyna MD Primary Care Provider + Encounter Details Date Type Department Care Team (Late st Contact Info) Description 11/01/2024 Procedure Pass [facility] [place], [address], Floor 1 [place] [address] Social History Tobacco Use Types Packs/Day Years [...] 2:14 AM EDT Daria Arechiga RN * [place] Suicide Severity Rating Scale (Screener/Recent Self-Report) Question [...] Description 03/22/2025 3:00 PM EDT Office Visit [facility] [address] [facility], 2nd Floor, [address] [place] [address] Zuleika Adams MD [address] [place] [address] 148 [place] [address] STEVEN@[email or web address] [email or web address] documented as of this encounter Visit Diagnoses Not on filedocumented in this encounter Care Teams Explosive Ordnance Specialist Relationship Specialty Start Date End Date Kassie Reyna MD [address] [place] [address] PCP - General Internal Medicine 12/17/21 documented as of this encounter Additional Source Comments The information contained in this document represents components of the legal health record. It is not the complete legal health record.[facility]
--- OUTSIDE RECORDS SUMMARY | 2025-02-12 06:02 | XMS_ITS | Encounter Summary ---
Author Organization [facility] Address [address] [place] [address] Care Team Providers Care Line Assembly Utility Worker Name Role Phone Kassie Reyna MD Primary Care Provider +1- [phone] Encounter Details Date Type Department Care Team (Late st Contact Info) Description 09/05/2023 Abstract [facility] [address] [facility] [address] [facility] 4th [place] [address] Taylor De León, MIKE Social History Tobacco [...] documented as of this encounter Care Teams Line Assembly Utility Worker Relationship Specialty Start Date End Date Kassie Reyna MD [address] [facility] 1 [place] [address] PCP - General Internal Medicine 07/29/22 documented as of this encounter
--- OUTSIDE RECORDS SUMMARY | 2025-02-12 06:02 | XMS_ITS | Encounter Summary ---
Author Organization [facility] Address [address] [place] [address] Phone Care Team Providers Care Oven Press Tender Name Role Phone Kassie Reyna MD Primary Care Provider + Encounter Details Date Type Department Care Team (Late st Contact Info) Description 11/11/2024 [facility] [address] [place] [address] Social History Tobacco Use Types Packs/Day Years [...] Description 03/22/2025 3:00 PM EDT Office Visit [facility] Clinic [address] [place] [address], 2nd Floor, [address] [place] [address] Zuleika Adams MD [address] [place] [address] [address] [place] [address] STEVEN@[email or web address] [place] documented as of this encounter Visit Diagnoses Not on filedocumented in this encounter Care Teams Oven Press Tender Relationship Specialty Start Date End Date Kassie Reyna MD [facility] [place] [address] PCP - General Internal Medicine 12/17/21 documented as of this encounter Additional Source Comments The information contained in this document represents components of the legal health record. It is not the complete legal health record.[facility]
--- OUTSIDE RECORDS SUMMARY | 2025-02-12 06:02 | XMS_ITS | Encounter Summary ---
Author Organization [facility] Address [address] [place] [address] Care Team Providers Care Certified Flex Endoscope Reprocessor Name Role Phone Kassie Reyna MD Primary Care Provider +1- [phone] Encounter Details Date Type Department Care Team (Late st Contact Info) Description 11/07/2023 Abstract [facility] [address] [facility] [address] [facility] 4th [place] [address] Taylor De León, MIKE Social History Tobacco [...] documented as of this encounter Care Teams Certified Flex Endoscope Reprocessor Relationship Specialty Start Date End Date Kassie Reyna MD 3400 [facility] 1 [place] [address] PCP - General Internal Medicine 07/29/22 documented as of this encounter
--- OUTSIDE RECORDS SUMMARY | 2025-02-12 06:02 | XMS_ITS | Encounter Summary ---
Author Organization [facility] Address [address] [place] [address] Care Team Providers Care [employer] Name Role Phone Kassie Reyna MD Primary Care Provider +1- [phone] Dialysis, [facility] Unavailable [phone] Lana Quintana MD Unavailable Gómez Whitley MD Unavailable Reason for Visit * Reason Comments Medication Refill Encounter Details Date Type Department Care Team (Late st Contact Info) Description 10/23/2022 Refill [facility] Department of Nephrology [address] [address] Lana Quintana MD [address] [place] [address] Essential hypertension Social History Tobacco Use Types [...] hypertension documented in this encounter Care Teams [employer] Relationship Specialty Start Date End Date Kassie Reyna MD [address] [place] [address] PCP - General Internal Medicine 12/24/21 Dialysis, [facility] [address] [place] [address] Dialysis Unit 09/05/22 Lana Quintana MD [address] [place] [address] Physician Nephrology 09/11/22 Gómez Whitley MD [address] [place] [address] Surgery, General 10/25/22 documented as of this encounter
--- OUTSIDE RECORDS SUMMARY | 2025-02-12 06:02 | XMS_ITS | Encounter Summary ---
Author Organization [facility], Address [address] [place] [address] Phone Care Team Providers Care Resistance Welding Machine Operator Name Role Phone Rashid Helton MD Primary Care Provider [phone] Reason for Visit * Reason Comments Med Refill Encounter Details Date Type Department Care Team (Late st Contact Info) Description 01/22/2022 Refill [facility] [address] [place] [phone] Waqar Wellington MD [address] [place] [address] [place] [phone] Social History Tobacco Use Types Packs/Day Years [...] on filedocumented in this encounter Care Teams Resistance Welding Machine Operator Relationship Specialty Start Date End Date Rashid Helton MD [facility] [address] [place] [address] PCP - General 06/12/20 documented as of this encounter
--- OUTSIDE RECORDS SUMMARY | 2025-02-12 06:02 | XMS_ITS | Encounter Summary ---
Author Organization [facility] Address [address] [place] [address] Phone Care Team Providers Care Surgical Sales Representative Name Role Phone Kassie Reyna MD Primary Care Provider + Encounter Details Date Type Department Care Team (Late st Contact Info) Description 11/03/2024 Procedure Pass [facility] Emergency Radiology, [address], Floor 1 [place] [address] Social History Tobacco Use Types Packs/Day Years [...] [facility] [address] [place] [address], 2nd Floor, [address] [place] [address] Zuleika Adams MD [address] [place] [address] [address] [place] [address] [email or web address] documented as of this encounter Visit Diagnoses Not on filedocumented in this encounter Care Teams Surgical Sales Representative Relationship Specialty Start Date End Date Kassie Reyna MD [address] [place] [address] PCP - General Internal Medicine 12/17/21 documented as of this encounter Additional Source Comments The information contained in this document represents components of the legal health record. It is not the complete legal health record.[facility]
--- OUTSIDE RECORDS SUMMARY | 2025-02-12 06:02 | XMS_ITS | Encounter Summary ---
Author Organization [facility] Address [address] [place] [address] Phone Care Team Providers Care Device Repair Technician Name Role Phone Kassie Reyna MD Primary Care Provider + Encounter Details Date Type Department Care Team (Late st Contact Info) Description 11/01/2024 Procedure Pass [facility] Imaging - RF/IR [address] [facility], 2nd [place] [address] Social History Tobacco Use Types Packs/Day Years [...] 2:14 AM EDT Daria Arechiga RN * [place] Suicide Severity Rating Scale (Screener/Recent Self-Report) Question [...] Description 03/22/2025 3:00 PM EDT Office Visit [facility]pertension Clinic [address] [facility], 2nd Floor, [address] [place] [address] Zuleika Adams MD [address] [place] [address] 148 [place] [address] [email or web address] [email or web address] documented as of this encounter Visit Diagnoses Not on filedocumented in this encounter Care Teams Device Repair Technician Relationship Specialty Start Date End Date Kassie Reyna MD [address] [place] [address] PCP - General Internal Medicine 12/17/21 documented as of this encounter Additional Source Comments The information contained in this document represents components of the legal health record. It is not the complete legal health record.[facility]
--- OUTSIDE RECORDS SUMMARY | 2025-02-12 06:02 | XMS_ITS | Encounter Summary ---
Author Organization [facility] Address [address] [place] [address] Phone Care Team Providers Care Washer And Crusher Tender Name Role Phone Kassie Reyna MD Primary Care Provider + Encounter Details Date Type Department Care Team (Late st Contact Info) Description 11/04/2024 [facility] [address] [place] [address] Social History Tobacco Use Types Packs/Day Years [...] Description 03/22/2025 3:00 PM EDT Office Visit [facility] Clinic [address] [place] [address], 2nd Floor, [address] [place] [address] Zuleika Adams MD [address] [place] [address] [address] [place] [address] [email or web address] documented as of this encounter Visit Diagnoses Not on filedocumented in this encounter Care Teams Washer And Crusher Tender Relationship Specialty Start Date End Date Kassie Reyna MD [facility] [place] [address] PCP - General Internal Medicine 12/17/21 documented as of this encounter Additional Source Comments The information contained in this document represents components of the legal health record. It is not the complete legal health record.[facility]
--- OUTSIDE RECORDS SUMMARY | 2025-02-12 06:02 | XMS_ITS | Encounter Summary ---
Author Organization [facility] Address [address] [place] [address] Care Team Providers Care High School Professional Name Role Phone Kassie Reyna MD Primary Care Provider +1- [phone] Encounter Details Date Type Department Care Team (Late st Contact Info) Description 05/30/2023 Scanned Document INTERFACE DEFAULT [address] [place] [phone] System, Provider Not In Social History Tobacco [...] documented as of this encounter Care Teams High School Professional Relationship Specialty Start Date End Date Kassie Reyna MD [address] [address] PCP - General Internal Medicine 07/29/22 documented as of this encounter
--- OUTSIDE RECORDS SUMMARY | 2025-02-12 06:02 | XMS_ITS | Encounter Summary ---
Author Organization [facility] Address [address] [place] [address] Care Team Providers Care Heavy Equipment Operator/Paver Name Role Phone Kassie Reyna MD Primary Care Provider +1- [phone] Dialysis, [facility] Unavailable [phone] Lana Quintana MD Unavailable Gómez Whitley MD Unavailable Encounter Details Date Type Department Care Team (Late st Contact Info) Description 06/25/2023 Mobile [facility] Physicians Department of Nephrology [address] [address] Lana Quintana MD [address] [place] [address] Vitamin D deficiency (Primary Dx) Social History [...] Primary documented in this encounter Care Teams Heavy Equipment Operator/Paver Relationship Specialty Start Date End Date Kassie Reyna MD [address] [place] [address] PCP - General Internal Medicine 12/24/21 Dialysis, [facility] [address] [place] [address] Dialysis Unit 09/05/22 Lana Quintana MD [address] [place] [address] Physician Nephrology 09/11/22 Gómez Whitley MD [address] [place] [address] Surgery, General 10/25/22 documented as of this encounter
--- OUTSIDE RECORDS SUMMARY | 2025-02-12 06:02 | XMS_ITS | Encounter Summary ---
Author Organization [facility] Address [address] [place] [address] Phone Care Team Providers Care Border Patrol Agent Name Role Phone Kassie Reyna MD Primary Care Provider + Encounter Details Date Type Department Care Team (Late st Contact Info) Description 11/15/2024 Procedure Pass [facility] [place] Cardiac Merchandise Flow Team Leader [address] [facility], Floor 9, [address] [place] [address] Social History Tobacco Use Types [...] [facility] [place] Pul[facility] [address] [place] [address], 2nd Floor, [address] [place] [address] Zuleika Adams MD [address] [place] [address] [address] [place] [address] [email or web address] documented as of this encounter [...] cell phone pictures and video calls like [email or web address]. If patient is found to be recording [...] on filedocumented in this encounter Care Teams Border Patrol Agent Relationship Specialty Start Date End Date Kassie Reyna MD [address] [place] [address] PCP - General Internal Medicine 12/17/21 documented as of this encounter Additional Source Comments The information contained in this document represents components of the legal health record. It is not the complete legal health record.[facility]
--- OUTSIDE RECORDS SUMMARY | 2025-02-12 06:02 | XMS_ITS | Encounter Summary ---
Author Organization [facility] Address [address] [place] [address] Phone Care Team Providers Care Chuck Tender Name Role Phone Kassie Reyna MD Primary Care Provider + Encounter Details Date Type Department Care Team (Late st Contact Info) Description 11/03/2024 Procedure Pass [facility] Cardiac Social Service Liaison [address] [facility], Floor 9, [address] [place] [address] Social History Tobacco Use Types [...] Description 03/22/2025 3:00 PM EDT Office Visit [facility] [address] [place] [address], 2nd Floor, [address] [place] [address] Zuleika Adams MD [address] [place] [address] 148 [place] [address] [email or web address] documented as of this encounter Visit Diagnoses Not on filedocumented in this encounter Care Teams Chuck Tender Relationship Specialty Start Date End Date Kassie Reyna MD [facility] [place] [address] PCP - General Internal Medicine 12/17/21 documented as of this encounter Additional Source Comments The information contained in this document represents components of the legal health record. It is not the complete legal health record.[facility]
--- OUTSIDE RECORDS SUMMARY | 2025-02-12 06:02 | XMS_ITS | Encounter Summary ---
Author Organization [facility] Address [address] [facility] [address] [facility] [address] [place] [address] Phone Care Team Providers Care Public Works Director Name Role Phone Kassie Reyna MD Primary Care Provider + Encounter Details Date Type Department Care Team (Late st Contact Info) Description 11/02/2024 Procedure Pass [facility] [address] [place] [address] Social History Tobacco Use Types Packs/Day Years [...] 03/22/2025 3:00 PM EDT Office [place] [facility] [address] [place] [address], 2nd Floor, [address] [place] [address] Zuleika Adams MD [address] [place] [address] [address] [place] [address] [email or web address] documented as of this encounter Visit Diagnoses Not on filedocumented in this encounter Care Teams Public Works Director Relationship Specialty Start Date End Date Kassie Reyna MD [facility] [place] [address] PCP - General Internal Medicine 12/17/21 documented as of this encounter Additional Source Comments The information contained in this document represents components of the legal health record. It is not the complete legal health record.[facility]
--- OUTSIDE RECORDS SUMMARY | 2025-02-12 06:02 | XMS_ITS | Encounter Summary ---
Author Organization [facility], Address [address] [place] [address] Phone Care Team Providers Care Varnishing Unit Operator Name Role Phone Rashid Helton MD Primary Care Provider [phone] Encounter Details Date Type Department Care Team (Late st Contact Info) Description 01/10/2022 Documentation Only [facility], [address] [place] [id number] Malick Arechiga [address] [place] [address] Social History Tobacco Use Types [...] on filedocumented in this encounter Care Teams Varnishing Unit Operator Relationship Specialty Start Date End Date Rashid Helton MD [facility] [address] [place] [address] PCP - General 06/12/20 documented as of this encounter
--- OUTSIDE RECORDS SUMMARY | 2025-02-12 06:02 | XMS_ITS | Clinical Summary ---
Author Organization [facility] Address [address] [place] [address] Care Team Providers Care Routing Machine Operator Name Role Phone Kassie Reyna MD Primary Care Provider +[phone]- [phone] Dialysis, [facility] Unavailable [phone] Lana Quintana MD Unavailable [phone] Gómez Whitley MD Unavailable Allergies Active Allergy Reactions Criticality Noted Date Comments Clonidine Other (See Comments) 02/11/2023 Edema and generalized swelling per patient Gabapentin GI Intolerance/Nausea/ Vomiting,Rash/Smiley titis Low 05/27/2019 Dizziness, itching, fatigue Lisinopril Shortness Of Breath High 03/14/2018 Methoxy Polyethylene Glycol-Epoetin Beta Rash/Dermatitis,Linsey rtness Of Breath High 09/15/2018 Mircera Tolerated Epogen fine Metoprolol Rash/Dermatitis Low 05/27/2019 Penicillins Hives,Rash/Dermatit is,Anaphylaxis High 10/03/2015 Prednisone GI Intolerance/Nausea/ Vomiting,Rash/Smiley titis Medium 10/04/2015 Swelling x 1 episodes. [...] needed for wheezing. Active epoetin michael (EPOGEN,PROCRIT) 90176 UNIT/ML injection Inject 1 mL (20,000 Units total) under the skin 3 (three) times a week on Friday, , Friday. Active Iron Sucrose (VENOFER IV) Infuse 50 mg into a venous catheter once a week. Active carvedilol (COREG) 12.5 MG tablet Take 3 tablets (37.5 mg total) by mouth 2 (two) times a day with meals. Active D3-50 1.25 MG (60978 UT) capsuleIndication s:Vitamin D deficiency TAKE 1 [...] 08/22/2022 Insurance MEDICARE PART A & B [facility] Member Subscriber Plan / Payer (Ef fective 2022-) Name:Flavio Morris Relation to Subscriber:Self Name:Flavio Morris Payer ID:[id number] Group ID:Not on file Type:Not on file Address: [address] [id number] MEDICAID OUT OF STATE [employer] [facility] MEDICARE PART A & B [facility] MEDICARE PART A & B [facility] Advance Directives * Full Code (Latest [...] 2:07 AM 05/16/2022 12:39 PM Care Teams Routing Machine Operator Relationship Specialty Start Date End Date Kassie Reyna MD [address] [place] [address] PCP - General Internal Medicine 12/24/21 Dialysis, [facility] [address] [place] [address] Dialysis Unit 09/05/22 Lana Quintana MD [address] [place] [address] Physician Nephrology 09/11/22 Gómez Whitley MD [address] [place] [address] Surgery, General 10/25/22
--- OUTSIDE RECORDS SUMMARY | 2025-02-12 06:02 | XMS_ITS | Encounter Summary ---
Author Organization [facility] Address [address] [place] [address] Care Team Providers Care Dye Room Helper Name Role Phone Kassie Reyna MD Primary Care Provider [phone]- [phone] Dialysis, [facility] Unavailable [phone] Lana Quintana MD Unavailable Gómez Whitley MD Unavailable [phone] Reason for Visit * Reason Comments Medication Refill Encounter Details Date Type Department Care Team (Late st Contact Info) Description 10/25/2022 Refill [facility] Department of Nephrology [address] [address] Lana Quintana MD [address] [place] [address] Essential hypertension Social History Tobacco Use Types [...] hypertension documented in this encounter Care Teams Dye Room Helper Relationship Specialty Start Date End Date Kassie Reyna MD [address] [place] [address] PCP - General Internal Medicine 12/24/21 Dialysis, [facility] [address] [place] [address] Dialysis Unit 09/05/22 Lana Quintana MD [address] [place] [address] Physician Nephrology 09/11/22 Gómez Whitley MD [address] [place] [address] Surgery, General 10/25/22 documented as of this encounter
--- OUTSIDE RECORDS SUMMARY | 2025-02-12 06:02 | XMS_ITS | Encounter Summary ---
Author Organization [facility] Address [address] [place] [address] Care Team Providers Care Book Store Associate Name Role Phone Kassie Reyna MD Primary Care Provider [phone]- [phone] Dialysis, [facility] Unavailable [phone] Lana Quintana MD Unavailable [phone] Gómez Whitley MD Unavailable Encounter Details Date Type Department Care Team (Late st Contact Info) Description 08/06/2023 Mobile [facility] Physicians Department of Nephrology [address] [address] Lana Quintana MD [address] [place] [address] Environmental allergies (Primary Dx); Essential hypertension; Allergy, [...] sequela documented in this encounter Care Teams Book Store Associate Relationship Specialty Start Date End Date Kassie Reyna MD [address] [place] [address] PCP - General Internal Medicine 12/24/21 Dialysis, [facility] [address] [place] [address] Dialysis Unit 09/05/22 Lana Quintana MD [address] [place] [address] Physician Nephrology 09/11/22 Gómez Whitley MD [address] [place] [address] Surgery, General 10/25/22 documented as of this encounter
--- OUTSIDE RECORDS SUMMARY | 2025-02-12 06:03 | XMS_ITS | Encounter Summary ---
Author Organization [facility] Address [address] [place] [address] Care Team Providers Care Senior Construction Project Manager Name Role Phone Kassie Reyna MD Primary Care Provider [phone]- [phone] Encounter Details Date Type Department Care Team (Late st Contact Info) Description 10/04/2015 Scanned Document [facility] [address] [facility] [address] [facility] [address] [place] [address] Benjamin Morel Social History Tobacco Use Types Packs/Day Years [...] documented as of this encounter Care Teams Senior Construction Project Manager Relationship Specialty Start Date End Date Kassie Reyna MD [facility] [address] [address] PCP - General Internal Medicine 07/29/22 documented as of this encounter
--- OUTSIDE RECORDS SUMMARY | 2025-02-12 06:03 | XMS_ITS | Encounter Summary ---
Author Organization [facility] Address [address] [place] [address] Care Team Providers Care Professor Of Physics Name Role Phone Kassie Reyna MD Primary Care Provider [phone]- [phone] Encounter Details Date Type Department Care Team (Late st Contact Info) Description 10/10/2015 Abstract [facility] [address] [facility] [address] [facility] [address] [place] [address] Radha Luna RN Social History Tobacco Use [...] documented as of this encounter Care Teams Professor Of Physics Relationship Specialty Start Date End Date Kassie Reyna MD [facility] [address] [address] PCP - General Internal Medicine 07/29/22 documented as of this encounter
--- OUTSIDE RECORDS SUMMARY | 2025-02-12 06:03 | XMS_ITS | Encounter Summary ---
Author Organization [facility] Address [address] [place] [address] Care Team Providers Care Career Services Representative Name Role Phone Kassie Reyna MD Primary Care Provider [phone]- [phone] Encounter Details Date Type Department Care Team (Late st Contact Info) Description 05/06/2016 Scanned Document [facility] [address] [facility] [address] [facility] [address] [place] [address] External, Provider Social History Tobacco Use Types [...] documented as of this encounter Care Teams Career Services Representative Relationship Specialty Start Date End Date Kassie Reyna MD [address] [address] PCP - General Internal Medicine 07/29/22 documented as of this encounter
--- OUTSIDE RECORDS SUMMARY | 2025-02-12 06:03 | XMS_ITS | Encounter Summary ---
Author Organization [facility] Address [address] [place] [address] Care Team Providers Care Technical Service Rep Name Role Phone Kassie Reyna MD Primary Care Provider +1- [phone] Encounter Details Date Type Department Care Team (Late st Contact Info) Description 09/17/2016 Scanned Document [facility] 800 [facility] 800 [facility] [address] [place] [address] External, Provider Social History Tobacco Use Types [...] documented as of this encounter Care Teams Technical Service Rep Relationship Specialty Start Date End Date Kassie Reyna MD [address] [address] PCP - General Internal Medicine 07/29/22 documented as of this encounter
--- OUTSIDE RECORDS SUMMARY | 2025-02-12 06:03 | XMS_ITS | Encounter Summary ---
Author Organization [facility] Address [address] [place] [address] Phone Care Team Providers Care Nail Polish Brush Machine Feeder Name Role Phone Rashid Helton MD Primary Care Provider [phone] Encounter Details Date Type Department Care Team (Late st Contact Info) Description 08/24/2024 Documentation Only [facility], [address] [facility] [place] [phone] Waqar Wellington MD [address] [place] [address] Social History Tobacco Use Types [...] on filedocumented in this encounter Care Teams Nail Polish Brush Machine Feeder Relationship Specialty Start Date End Date Rashid Helton MD [facility] [address] [place] [address] PCP - General 06/12/20 documented as of this encounter
--- OUTSIDE RECORDS SUMMARY | 2025-02-12 06:03 | XMS_ITS | Encounter Summary ---
Author Organization [facility], Address [address] [place] [address] Phone Care Team Providers Care Bakery Manager Name Role Phone Rashid Helton MD Primary Care Provider [phone] Encounter Details Date Type Department Care Team (Late st Contact Info) Description 02/03/2025 Documentation Only [facility], [address] [place] [address] Malick Arechiga [address] [place] [address] Social History Tobacco Use Types [...] on filedocumented in this encounter Care Teams Bakery Manager Relationship Specialty Start Date End Date Rashid Helton MD [facility] [address] [place] [address] PCP - General 06/12/20 documented as of this encounter
--- OUTSIDE RECORDS SUMMARY | 2025-02-12 06:03 | XMS_ITS | Encounter Summary ---
Author Organization [facility] Address [address] [place] [address] Care Team Providers Care Psychiatric Nurse Practitioner Name Role Phone Kassie Reyna MD Primary Care Provider [phone]- [phone] Dialysis, [facility] Unavailable [phone] Lana Quintana MD Unavailable Gómez Whitley MD Unavailable [phone] Encounter Details Date Type Department Care Team (Late st Contact Info) Description 06/14/2022 Scanned Document [address] [facility] [address] [place] [address] Provider, Generic Social History Tobacco Use [...] on filedocumented in this encounter Care Teams Psychiatric Nurse Practitioner Relationship Specialty Start Date End Date Kassie Reyna MD [address] [place] [address] PCP - General Internal Medicine 12/24[facility] [address] [place] [address] Dialysis Unit 09/05/22 Lana Quintana MD [address] [place] [address] Physician Nephrology 09/11/22 Gómez Whitley MD [address] [place] [address] Surgery, General 10/25/22 documented as of this encounter
--- OUTSIDE RECORDS SUMMARY | 2025-02-12 06:03 | XMS_ITS | Patient Health Record ---
Author Organization [facility] Address [address] [place] [address] [address] [place], [place] [id number] Support Name Relationship Address Phone HIMA OROZCO Guarantor Unknown Reason For Referral No Information Plan Of Treatment No Information
--- OUTSIDE RECORDS SUMMARY | 2025-02-12 06:03 | XMS_ITS | Encounter Summary ---
Author Organization [facility] Address [address] [place] [address] Care Team Providers Care Wide Area Network Administrator Name Role Phone Kassie Reyna MD Primary Care Provider [phone]- [phone] Encounter Details Date Type Department Care Team (Late st Contact Info) Description 08/22/2015 Scanned Document [facility] 800 [facility] [address] [facility] [address]th [place] [address] Benjamin Morel Social History Tobacco Use Types [...] documented as of this encounter Care Teams Wide Area Network Administrator Relationship Specialty Start Date End Date Kassie Reyna MD [address] [address] PCP - General Internal Medicine 07/29/22 documented as of this encounter
--- OUTSIDE RECORDS SUMMARY | 2025-02-12 06:03 | XMS_ITS | Encounter Summary ---
Author Organization [facility] Address [address] [place] [address] Care Team Providers Care Designer Architect Name Role Phone Kassie Reyna MD Primary Care Provider [phone]- [phone] Encounter Details Date Type Department Care Team (Late st Contact Info) Description 07/26/2022 Abstract [facility] 800 [facility] 800 [facility] [address] [place] [address] Referring, No Social History Tobacco Use Types [...] documented as of this encounter Care Teams Designer Architect Relationship Specialty Start Date End Date Kassie Reyna MD [address] [address] PCP - General Internal Medicine 07/29/22 documented as of this encounter
--- OUTSIDE RECORDS SUMMARY | 2025-02-12 06:03 | XMS_ITS | Encounter Summary ---
Author Organization [facility] Address [address] [place] [address] Care Team Providers Care Special Agent In Charge Name Role Phone Kassie Reyna MD Primary Care Provider +1- [phone] Encounter Details Date Type Department Care Team (Late st Contact Info) Description 10/16/2016 Scanned Document [facility] 800 [facility] 800 [facility] [address] [place] [address] Kassie Altamirano MD [address] [place] [address] Social History Tobacco Use Types Packs/Day [...] documented as of this encounter Care Teams Special Agent In Charge Relationship Specialty Start Date End Date Kassie Reyna MD [address] [address] PCP - General Internal Medicine 07/29/22 documented as of this encounter
--- OUTSIDE RECORDS SUMMARY | 2025-02-12 06:03 | XMS_ITS | Encounter Summary ---
Author Organization [facility] Address [address] [place] [address] Care Team Providers Care Mail Deliverer Name Role Phone Kassie Reyna MD Primary Care Provider [phone]- [phone] Encounter Details Date Type Department Care Team (Late st Contact Info) Description 08/21/2017 Abstract [facility] 800 [facility] [address] [facility] [address] [place] [address] Cinthia Jaramillo RN Social History Tobacco Use [...] as of this encounter Care Teams Mail Deliverer Relationship Specialty Start Date End Date Kassie Reyna MD [address] [address] PCP - General Internal Medicine 07/29/22 documented as of this encounter
--- OUTSIDE RECORDS SUMMARY | 2025-02-12 06:03 | XMS_ITS | Encounter Summary ---
Author Organization [facility] Address [address] [place] [address] Care Team Providers Care Accountant Supervisor Name Role Phone Kassie Reyna MD Primary Care Provider +1- [phone] Encounter Details Date Type Department Care Team (Late st Contact Info) Description 04/09/2016 Scanned Document [facility] 800 [facility] [address] [place] [address] External, Provider Social History Tobacco Use Types [...] documented as of this encounter Care Teams Accountant Supervisor Relationship Specialty Start Date End Date Kassie Reyna MD [address] [address] PCP - General Internal Medicine 07/29/22 documented as of this encounter
--- OUTSIDE RECORDS SUMMARY | 2025-02-12 06:03 | XMS_ITS | Encounter Summary ---
Author Organization [facility] Address [address] [place] [address] Care Team Providers Care Chief Counsel Name Role Phone Kassie Reyna MD Primary Care Provider [phone]- [phone] Encounter Details Date Type Department Care Team (Late st Contact Info) Description 10/04/2015 Scanned Document [facility] 800 [facility] 800 [facility] [address] [place] [address] Benjamin Morel Social History Tobacco Use Types [...] documented as of this encounter Care Teams Chief Counsel Relationship Specialty Start Date End Date Kassie Reyna MD [facility] [address] [address] PCP - General Internal Medicine 07/29/22 documented as of this encounter
--- OUTSIDE RECORDS SUMMARY | 2025-02-12 06:03 | XMS_ITS | Encounter Summary ---
Author Organization [facility] Address [address] [place] [address] Care Team Providers Care Religion Instructor Name Role Phone Kassie Reyna MD Primary Care Provider +1- [phone] Encounter Details Date Type Department Care Team (Late st Contact Info) Description 09/18/2016 Scanned Document [facility] 800 [facility] 800 [facility] [address] [place] [address] External, Provider Social History Tobacco Use Types [...] documented as of this encounter Care Teams Religion Instructor Relationship Specialty Start Date End Date Kassie Reyna MD [address] [address] PCP - General Internal Medicine 07/29/22 documented as of this encounter
--- OUTSIDE RECORDS SUMMARY | 2025-02-12 06:03 | XMS_ITS | Encounter Summary ---
Author Organization [facility] and [facility] Address [address] [place] [address] Care Team Providers Care Boat Assembler Name Role Phone Kassie Reyna MD Primary Care Provider +1- [phone] Encounter Details Date Type Department Care Team (Late st Contact Info) Description 07/24/2015 Scanned Document [facility] 800 [facility] 800 [facility] [address]th [place] [address] External, Provider Social History Tobacco Use Types [...] documented as of this encounter Care Teams Boat Assembler Relationship Specialty Start Date End Date Kassie Reyna MD [address] [address] PCP - General Internal Medicine 07/29/22 documented as of this encounter
--- OUTSIDE RECORDS SUMMARY | 2025-02-12 06:03 | XMS_ITS | Encounter Summary ---
Author Organization [facility] and [facility] Address [address] [place] [address] Care Team Providers Care Runner Out Name Role Phone Kassie Reyna MD Primary Care Provider +1- [phone] Encounter Details Date Type Department Care Team (Latest Contact Info) Description 10/04/2015 Transcribed Orders Lab Specimens [address] [place], [place] [address] Sancho Dowd MD [address] [place] [address] Pre-transplant evaluation for end stage [...] documented as of this encounter Results * ABO/Rh Is this a transplant patient? Yes (10/04/2015 12:40 PM EDT) ABO Grouping O [facility] Rh Type POS [facility] Blood specimen (specimen) 10/04/2015 12:40 PM EDT Narrative [facility] - 10/05/2015 12:34 AM EDT Performing Site: [facility], [address] [place] [address] us Sancho Dowd MD BLOOD BANK TEST ORDERABLES Final Result Performing Organization Address City/State/[facility] Co de Phone Number [facility] [address] [place] [address] documented in this encounter Visit Diagnoses Diagnosis Pre-transplant evaluation for end stage renal disease Other specified pre-operative examination Pre-transplant evaluation for end stage renal disease- [...] documented as of this encounter Care Teams Runner Out Relationship Specialty Start Date End Date Kassie Reyna MD [facility] [address] [address] PCP - General Internal Medicine 07/29/22 documented as of this encounter
--- OUTSIDE RECORDS SUMMARY | 2025-02-12 06:03 | XMS_ITS | Encounter Summary ---
Author Organization [facility] and [facility] Address 20 [place] [address] Care Team Providers Care Supervisor Water Treatment Plant Name Role Phone Kassie Reyna MD Primary Care Provider +1- [phone] Encounter Details Date Type Department Care Team (Late st Contact Info) Description 07/08/2022 Abstract [facility] 800 [facility] 800 [facility] [address] [place] [address] Soni Escalante, [facility] Social History Tobacco Use Types Packs/Day Years [...] as of this encounter Care Teams Supervisor Water Treatment Plant Relationship Specialty Start Date End Date Kassie Reyna MD [address] [address] PCP - General Internal Medicine 07/29/22 documented as of this encounter
--- OUTSIDE RECORDS SUMMARY | 2025-02-12 06:03 | XMS_ITS | Encounter Summary ---
Author Organization [facility] and [facility] Address [address] [place] [address] Care Team Providers Care Fire Captain Marine Name Role Phone Kassie Reyna MD Primary Care Provider +1- [phone] Encounter Details Date Type Department Care Team (Late st Contact Info) Description 08/03/2021 Scanned Document [facility] 800 [facility] 800 [facility] 4th [place] [address] External, Provider Social History Tobacco Use Types [...] documented as of this encounter Care Teams Fire Captain Marine Relationship Specialty Start Date End Date Kassie Reyna MD [address] [address] PCP - General Internal Medicine 07/29/22 documented as of this encounter
--- OUTSIDE RECORDS SUMMARY | 2025-02-12 06:03 | XMS_ITS | Encounter Summary ---
Author Organization [facility], Address [address] [place] [address] Phone Care Team Providers Care Implement Mechanic Name Role Phone Rashid Helton MD Primary Care Provider [phone] Reason for Visit * Reason Comments Med Refill Encounter Details Date Type Department Care Team (Late st Contact Info) Description 02/05/2022 Refill [facility] [address] [place] [phone] Waqar Wellington MD [address] [place] [address] [place] [address] Social History Tobacco Use Types Packs/Day Years [...] on filedocumented in this encounter Care Teams Implement Mechanic Relationship Specialty Start Date End Date Rashid Helton MD [facility] [address] [place] [address] PCP - General 06/12/20 documented as of this encounter
--- OUTSIDE RECORDS SUMMARY | 2025-02-12 06:03 | XMS_ITS | Encounter Summary ---
Author Organization [facility] Address 20 [place] [address] Care Team Providers Care Hydro Pneumatic Tester Name Role Phone Kassie Reyna MD Primary Care Provider [phone]- [phone] Encounter Details Date Type Department Care Team (Late st Contact Info) Description 03/07/2020 Abstract [facility] 800 [facility] 800 [facility] [address]th [place] [address] Katey Parr Social History Tobacco Use Types [...] documented as of this encounter Care Teams Hydro Pneumatic Tester Relationship Specialty Start Date End Date Kassie Reyna MD [address] [address] PCP - General Internal Medicine 07/29/22 documented as of this encounter
--- OUTSIDE RECORDS SUMMARY | 2025-02-12 06:03 | XMS_ITS | Encounter Summary ---
Author Organization [facility] and [facility] Address [address] [place] [address] Care Team Providers Care Rib Knitter Name Role Phone Kassie Reyna MD Primary Care Provider +1- [phone] Reason for Visit * Reason Comments Kidney Transplant Evaluation Encounter Details Date Type Department Care Team (Late st Contact Info) Description 06/24/2022 Documentation [facility] 800 [facility] 800 [facility] 4th [place] [address] Linnea De León, MIKE Social History Tobacco [...] León RN - 06/24/2022 8:30 AM EST [facility] Kidney Transplant Program- Medical Review Board Transplant Nurse Coordinator Summary REFERRING PROVIDER: Jenifer Cavazos PRIMARY CARE PROVIDER: Jenifer Cavazos TRANSPLANT NURSE COORDINATOR: LINNEA DE LEÓN NAME: Flavio Morris , [id number] AGE: 36 y.o. GENDER: female ETHNICITY: [facility] [address] [address] Transplant Phase: Kidney Transplant Evaluation - 06/27/2021 [...] FSG) Transplant Evaluation Team: Dietitian: Noa Luis E Commerce Web Developer: Charley Villagomez Referring Physician: Jenifer Cavazos Coordinator: Jonh Osorio Transplant Surgeon: Isidoro Colon Portfolio Management Marketing: Cory Tellez Associate Coordinator: Katey Parr Patient Active Problem List Diagnosis SNOMED CT(R) ??? ESRD (end stage renal disease) on dialysis (HC Code) (HC CODE) (HC Code) END STAGE RENAL FAILURE ON DIALYSIS ??? Essential hypertension, benign BENIGN ESSENTIAL HYPERTENSION ??? Seizures (HC Code) (HC CODE) (HC Code) SEIZURE ??? 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 Has been on [...] documented as of this encounter Care Teams Rib Knitter Relationship Specialty Start Date End Date Kassie Reyna MD [address] [address] PCP - General Internal Medicine 07/29/22 documented as of this encounter
--- OUTSIDE RECORDS SUMMARY | 2025-02-12 06:03 | XMS_ITS | Encounter Summary ---
Author Organization [facility] Address [address] [place] [address] Phone Care Team Providers Care County Sheriff Name Role Phone Rashid Helton MD Primary Care Provider [phone] Encounter Details Date Type Department Care Team (Late st Contact Info) Description 10/13/2024 Documentation Only [facility] [place], [address] [place] [phone] Roby Sosa MD [address] [facility] [place] [address] Social History Tobacco Use Types [...] on filedocumented in this encounter Care Teams County Sheriff Relationship Specialty Start Date End Date Rashid Helton MD [facility] [address] [place] [address] PCP - General 06/12/20 documented as of this encounter
--- OUTSIDE RECORDS SUMMARY | 2025-02-12 06:03 | XMS_ITS | Encounter Summary ---
Author Organization [facility] and [facility] Address [address] [place] [address] Care Team Providers Care Bleach Analyst Name Role Phone Kassie Reyna MD Primary Care Provider [phone]- [phone] Reason for Referral * Non-Referral (Routine) - Closed Specialty Diagnoses / Procedures Referred By Megan araujo Referred To Contact Procedures EEG Scan External, Provider Referral ID Status Reason Start Date Expiration Date Visits Re quested Visits Authorized [id number] Closed 01/10/2017 01/10/2018 1 1 Encounter Details Date Type Department Care Team (Late st Contact Info) Description 01/10/2017 Scanned Document [facility] [address] 4th [place] [address] External, Provider Social History Tobacco Use Types [...] documented as of this encounter Care Teams Bleach Analyst Relationship Specialty Start Date End Date Kassie Reyna MD [address] [address] PCP - General Internal Medicine 07/29/22 documented as of this encounter
--- OUTSIDE RECORDS SUMMARY | 2025-02-12 06:03 | XMS_ITS | Encounter Summary ---
Author Organization [facility] and [facility] Address [address] [place] [address] Care Team Providers Care Transfer Driver Name Role Phone Kassie Reyna MD Primary Care Provider +1- [phone] Encounter Details Date Type Department Care Team (Latest Contact Info) Description 10/04/2015 Transcribed Orders [facility] [address] [place] [address] Sancho Dowd MD [address] [place] [address] Pre-transplant evaluation for end stage [...] EDT) ECG - HEART RATE 63 bpm [facility] EKG QRS Interval 87 ms [facility] EKG QT Interval 423 ms [facility] EKG QTC Interval 434 ms [facility] EKG P [place] 73 deg [facility] EKG QRS [place] 31 deg [facility] EKG T Wave [place] 28 deg [facility] EKG P-R Interval 157 msec [facility] EKG Comment::Sinus rhythm::Elect ronically Signed On 10-05-2015 15:39:32 EDT by Horace Rajan MD 10/04/2015 2:12 PM EDT us Sancho Dowd MD ECG ORDERABLES Final Resul t [facility] EKG documented in this encounter Visit [...] documented as of this encounter Care Teams Transfer Driver Relationship Specialty Start Date End Date Kassie Reyna MD [facility] [address] [address] PCP - General Internal Medicine 07/29/22 documented as of this encounter
--- OUTSIDE RECORDS SUMMARY | 2025-02-12 06:03 | XMS_ITS | Encounter Summary ---
Author Organization [facility] Address [address] [place] [address] Phone Care Team Providers Care Vice President Network Development Name Role Phone Rashid Helton MD Primary Care Provider [phone] Encounter Details Date Type Department Care Team (Late st Contact Info) Description 07/28/2023 Documentation Only [facility] [place], [address] [facility] [address] [place] [address] Tod Stone MD [address] [facility] [place] [address] Social History Tobacco Use Types [...] on filedocumented in this encounter Care Teams Vice President Network Development Relationship Specialty Start Date End Date Rashid Helton MD [facility] [address] [place] [address] PCP - General 06/12/20 documented as of this encounter
--- OUTSIDE RECORDS SUMMARY | 2025-02-12 06:03 | XMS_ITS | Encounter Summary ---
Author Organization [facility] Address [address] [place] [address] Care Team Providers Care Supervisor Maintenance And Custodians Name Role Phone Kassie Reyna MD Primary Care Provider [phone]- [phone] Encounter Details Date Type Department Care Team (Late st Contact Info) Description 02/15/2016 Scanned Document [facility] [address] [facility] [address] [facility] [address] [place] [address] External, Provider Social History Tobacco Use Types [...] as of this encounter Care Teams Supervisor Maintenance And Custodians Relationship Specialty Start Date End Date Kassie Reyna MD [address] [address] PCP - General Internal Medicine 07/29/22 documented as of this encounter
--- OUTSIDE RECORDS SUMMARY | 2025-02-12 06:03 | XMS_ITS | Encounter Summary ---
Author Organization [facility] Address [address] [place] [address] Phone Care Team Providers Care Product Promoter Retail Pet Name Role Phone Kassie Reyna MD Primary Care Provider + Encounter Details Date Type Department Care Team (Late st Contact Info) Description 11/27/2024 Procedure Pass [facility] Imaging - RF/IR [address] [place] [address] Social History Tobacco Use Types Packs/Day Years [...] Description 03/22/2025 3:00 PM EDT Office Visit [facility] Pul[facility] Hypert[facility] [address] [place] [address], 2nd Floor, [address] [place] [address] Zuleika [place] MD [address] [place] [address] [address] [place] [address] [email or web address] documented as of this encounter Goals [...] cell phone pictures and video calls like [employer]. If patient is found to be recording [...] on filedocumented in this encounter Care Teams Product Promoter Retail Pet Relationship Specialty Start Date End Date Kassie Reyna MD [address] [place] [address] PCP - General Internal Medicine 12/17/21 documented as of this encounter Additional Source Comments The information contained in this document represents components of the legal health record. It is not the complete legal health record.[facility]
--- OUTSIDE RECORDS SUMMARY | 2025-02-12 06:03 | XMS_ITS | Clinical Summary ---
Author Organization [facility] Address [address] [place] [address] Phone Care Team Providers Care Soa Integration Developer Name Role Phone Rashid Helton MD Primary Care Provider [phone] Allergies Active Allergy Reactions Criticality Noted Date [...] 7 Active cholecalciferol (VITAMIN D-3) 1.25 MG (11830 UT) capsule Take 50,000 Units by mouth [...] mouth every night Active ergocalciferol 1.25 MG (85721 UT) capsule Take 50,000 Units by mouth [...] HTN and preeclampsia Planning transplant. 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 Anxiety state 04/23/2006 Encounters Date Type Department Care Team Description 02/03/2025 Documentation Only [facility] [place], [address] [place] [address] Malick Arechiga DO 01/15/2025 Treatment [facility] [place], [address] [place] [address] Malick Arechiga DO End stage renal disease; Dependence on renal dialysis 01/15/2025 Orders Only [facility] [address] [address] Malick Arechiga, 01/12/2025 Documentation Only [facility] [address] [place] [address] Malick Arechiga, 01/12/2025 Documentation Only [facility] [address] [place] [address] Malick Arechiga, 01/06/2025 Telephone [facility] [address] [place] [address] [address] [place] 12/14/2024 Treatment [facility] [place], [address] [place] [address] Malick Arechiga DO End stage renal disease; Dependence on renal dialysis 12/11/2024 Orders Only [facility] [address] [address] Malick Arechiga, 12/07/2024 Orders Only [facility] [address] [address] Malick Arechiga, from Last 3 Months Immunizations [...] included. Hemoglobin 7.5(L) 12.0 - 16.0 g/dL [facility] Hemoglobin x 3 22.5(L) 36.0 - 48.0 % [facility] 01/15/2025 01/18/2025 8:4 8 AM EDT Narrative [facility] - 01/18/2025 Unless otherwise specified, test(s) performed at: [facility], [address] [place] [address] CIRCUIT RECORDER: Magdy Howard M.D. For any questions, please call customer service at FREQUENCY:OTHER Resulting Agency Comment Specimen source: Blood Malick Arechiga DO LAB BLOOD ORDERABLES Final Resu lt [facility] See order comments or contact performing lab [facility], [place] * (ABNORMAL) HD KINETICS (12/07/2024) % Urea Reduction 94(H) 65 - 80 % [facility] 12/07/2024 12/08/2024 11: 37 AM EDT Narrative [facility] - 12/08/2024 Unless otherwise specified, test(s) performed at: [facility], [address] [place] [id number] CIRCUIT RECORDER: Magdy Howard M.D. For any questions, please call customer service at FREQUENCY:MONTHLY Resulting Agency Comment Specimen source: Plasma Malick [facility] LAB BLOOD ORDERABLES Final Resu Performing Organization Address [facility] de Phone Number [facility] See order comments or contact performing lab Unknown, [place] * POST CHEMISTRY (12/07/2024) BUN Post Dialysis 6 6 - 19 mg/dL [facility] 12/07/2024 12/08/2024 11: 37 AM EDT Narrative [facility] - 12/08/2024 Unless otherwise specified, test(s) performed at: [facility] [address] CIRCUIT RECORDER: Magdy Howard M.D. For any questions, please call customer service at FREQUENCY:MONTHLY Resulting Agency Comment Specimen source: Plasma Malick [facility] LAB BLOOD ORDERABLES Final Resu Performing Organization Address [facility] de Phone Number [email or web address] See order comments or contact performing lab Unknown, [place] * IMMUNO CHEMISTRY (12/07/2024) Pathologist [facility] Hep B Surface Ag Negative Negative [facility] 12/07/2024 12/08/2024 9:2 6 AM EDT Narrative [facility] - 12/08/2024 Unless otherwise specified, test(s) performed at: [facility], [address] [place] [address] CIRCUIT RECORDER: Magdy Howard M.D. For any questions, please call customer service at FREQUENCY:MONTHLY Resulting Agency Comment Specimen source: Serum Malick [facility] LAB BLOOD ORDERABLES Final Resu Performing Organization Address [facility] de Phone Number [email or web address] See order comments or contact performing lab [...] 12/08/2024 Unless otherwise specified, test(s) performed at: [facility], [address] [place] [address] CIRCUIT RECORDER: Magdy Howard M.D. For any questions, please call customer service at FREQUENCY:MONTHLY Resulting Agency Comment Specimen source: Serum us Malick Arechiga DO LAB BLOOD ORDERABLES Edited Res ult - Final [place] See order comments or contact performing lab Unknown, [place] * [facility] Lab Results (12/07/2024) eNPCR 1.79 Knowledge Center WSTDKT/V 2.0 Knowledge Center eKt/V (Tattersall) 3.01 Knowledge Center nPCR_HD 1.82 Knowledge Center spKt/V Gotch 3.89 [facility] spKt/V (Daugirdas II) 3.57 Knowledge Center eKdrt/V 3.17 Knowledge Center eKt/V Gotch 3.17 Knowledg e Center PCR 90.67 Knowledge Center 12/07/2024 12/07/2024 [place] Ordering Provider LAB BLOOD ORDERABLES Final Result [facility] Contact Performing lab Unknown, [place] from Last 3 Months Insurance Medicare Medicaid [place] Care Teams Soa Integration Developer Relationship Specialty Start Date End Date Rashid Helton MD [facility] [address] [place] [address] PCP - General 06/12/20
--- OUTSIDE RECORDS SUMMARY | 2025-02-12 06:03 | XMS_ITS | Encounter Summary ---
Author Organization [facility] Address [address] [place] [address] Care Team Providers Care Trading Manager Name Role Phone Kassie Reyna MD Primary Care Provider [phone]- [phone] Encounter Details Date Type Department Care Team (Late st Contact Info) Description 07/23/2015 Scanned Document [facility] 800 [facility] 800 [facility] [address]th [place] [address] External, Provider Social History Tobacco Use Types [...] documented as of this encounter Care Teams Trading Manager Relationship Specialty Start Date End Date Kassie Reyna MD [address] [address] PCP - General Internal Medicine 07/29/22 documented as of this encounter
--- OUTSIDE RECORDS SUMMARY | 2025-02-12 06:03 | XMS_ITS | Encounter Summary ---
Author Organization [facility] Address [address] [place] [address] Phone Care Team Providers Care M48/M60 Tank Driver Name Role Phone Rashid Helton MD Primary Care Provider [phone] Encounter Details Date Type Department Care Team (Late st Contact Info) Description 10/06/2023 Documentation Only [facility] [place], [address] [facility] [address] [place] [address] Tod Stone MD [address] [facility] [place] [address] Social History Tobacco Use Types [...] on filedocumented in this encounter Care Teams [id number]/M60 Tank Driver Relationship Specialty Start Date End Date Rashid Helton MD [facility] [address] [place] [address] PCP - General 06/12/20 documented as of this encounter
--- OUTSIDE RECORDS SUMMARY | 2025-02-12 06:03 | XMS_ITS | Encounter Summary ---
Author Organization [facility] Address [address] [place] [address] Phone Care Team Providers Care 3Rd Mate Name Role Phone Rashid Helton MD Primary Care Provider [phone] Encounter Details Date Type Department Care Team (Late st Contact Info) Description 09/29/2024 Documentation Only [facility], [address] [place] [id number] [place] [address] [place] [phone] Social History Tobacco Use Types Packs/Day [...] on filedocumented in this encounter Care Teams 3Rd Mate Relationship Specialty Start Date End Date Rashid Helton MD [facility] [address] [place] [address] PCP - General 06/12/20 documented as of this encounter
--- OUTSIDE RECORDS SUMMARY | 2025-02-12 06:03 | XMS_ITS | Encounter Summary ---
Author Organization [facility] Address [address] [place] [address] Care Team Providers Care Lawn Care Technician Name Role Phone Kassie Reyna MD Primary Care Provider [phone] Encounter Details Date Type Department Care Team (Late st Contact Info) Description 08/22/2015 Abstract [facility] [address] [facility] [address] [facility] [address] [place] [address] Benjamin Morel Social History Tobacco Use Types [...] documented as of this encounter Care Teams Lawn Care Technician Relationship Specialty Start Date End Date Kassie Reyna MD [address] [phone] PCP - General Internal Medicine 07/29/22 documented as of this encounter
--- OUTSIDE RECORDS SUMMARY | 2025-02-12 06:03 | XMS_ITS | Encounter Summary ---
Author Organization [facility] Address [address] [place] [address] Care Team Providers Care Small Products I Assembler Name Role Phone Kassie Reyna MD Primary Care Provider [phone] Encounter Details Date Type Department Care Team (Late st Contact Info) Description 01/27/2015 Scanned Document [facility] [address] [facility] [address] [facility] [address] [place] [address] External, Provider Social History Tobacco Use Types [...] documented as of this encounter Care Teams Small Products I Assembler Relationship Specialty Start Date End Date Kassie Reyna MD [address] [phone] PCP - General Internal Medicine 07/29/22 documented as of this encounter
--- OUTSIDE RECORDS SUMMARY | 2025-02-12 06:03 | XMS_ITS | Clinical Summary ---
Author Organization [facility] Address [address] [facility] [address] [place] [phone] Phone Care Team Providers Care Filter Pulp Washer Name Role Phone Kassie Reyna MD Primary [...] while on anticoagulation. She has seen at [facility] in July 2024 by ENT for [...] Type Department Care Team Description 02/02/2025 Telephone [facility] Pul[facility]pert[facility] [address] [facility] [place] [facility] Floor, [address] [place] [address] Lita Nava RN 01/21/2025 Telephone [facility] [address], [address] [place] [address] Luz Martinez RN 01/18/2025 Telephone [facility] [address] [facility] [place] [facility] Floor, [address] [place] [address] Luz Martinez RN 01/10/2025 Telephone [facility] [address] [facility] [place] [facility] Floor, [address] [place] [address] Luz Martinez RN 12/29/2024 Orders Only [facility] senior investigator [address] [facility], 2nd Floor, [address] [place] [address] Marily Sawant Disorder of jaw (Primary Dx) 12/23/2024 Telephone [facility] senior investigator [address] [facility], 2nd Floor, [address] [place] [address] Malick Bowles MD, DDS Appointment 12/21/2024 Refill [facility] [address] [facility] [place] [facility] Floor, [address] [place] [address] Luz Martinez, cell efficiency supervisor Refill 11/27/2024 Procedure Pass [facility] Imaging - RF/IR [address] [place] [address] 11/22/2024 Refill [facility] [address] [facility], 2nd Floor, [address] [place] [address] Luz Martinez, cell efficiency supervisor Refill 11/19/2024 12:34 PM EDT Anesthesia Event [facility] PERIOPERATIVE DEPT [address] [place] [address] Leonel Phan Emily, CRNA 11/19/2024 11:45 AM EDT Ancillary Procedure [facility] Imaging Bedside Ultrasound VRT [address] [place] [address] Leonel Phan 11/19/2024 11:09 AM EDT - 11/19/2024 1:24 PM EDT Surgery [facility] PERIOPERATIVE DEPT [address] [place] [address] Abebe De La Fuente MD, PhD ARTERIOVENOUS FISTULA BANDING 11/19/2024 Procedure Pass [facility] PERIOPERATIVE DEPT [address] [place] [address] 11/16/2024 Procedure Pass [facility] Cardiac US [address] [place] [address] 11/16/2024 Procedure Pass [facility] CT, Mook 2 [address] [facility], 2nd Floor, [address] [place] [address] 11/16/2024 Procedure Pass [facility] CT, Mook 2 55 [facility], 2nd Floor, [address] [place] [address] 11/15/2024 2:05 PM EDT - 11/15/2024 3:10 PM EDT Surgery [facility] Cardiac Special Procedure Tech [address] [facility], Floor 9, [address] [place] [address] Trent Roche MD Right Heart Catheterization with O2 Sat Run 11/15/2024 Procedure Pass [facility] Cardiac Special Procedure Tech [address] [facility], Floor 9, [address] [place] [address] 11/12/2024 Orders Only [facility] DIALYSIS VIRTUAL DEPARTMENT [address] [place] [address] Jed Dickey RN 11/11/2024 Procedure Pass [facility] Cardiac US [address] [place] [address] 11/01/2024 2:20 AM EDT - 11/29/2024 6:22 PM EDT Hospital Encounter [facility] Wilfrid [address] [place] [address] Margie Lawrence MD Oskar, MD Hao Preciado, Richard Carreon, MD Schwartz, Barbie Gillette, Lynn Mcintyre MD Ziperstein, MD Valerie Taylor, MD Vu Ortez, Minh Smith, MD Gayle, MD Francesco Cleveland, MD Efrem Mcintosh, Pieter [...] is your housing situation today? I have rociowendy gonzalez 11/01/2024 How many times have you [...] Description 03/22/2025 3:00 PM EDT Office Visit [facility] Pul[facility] Hypertension Clinic [address] [facility], 2nd Floor, [address] [place] [address] Zuleika Adams MD [address] [place] [address] [address] [place] [address] [phone] (work) [email or web address] Health Maintenance Due Date Last Done Comments [...] cell phone pictures and video calls like [facility]. If patient is found to be recording [...] PATCH PERFORMABLE Routine 11/19/2024 12:58 PM EDT OR ANESTHESIA PERIPHERAL BLOCK PLACEHOLDER Routine 11/19/2024 12:58 [...] EDT CBC Routine 11/12/2024 6:44 AM EDT from Last 3 Months Results * Outside Cardiology Report Only (11/30/2024) us Scanning Interface Provider CV CARDIAC SERVICES ORDERABLES Final Result * (ABNORMAL) Recirculation study (11/29/2024 2:04 PM EDT) ARTERIAL BUN 17 8 - 25 mg/dL [facility] BUN, venous <35(H) 8 - 25 mg/dL [facility] BUN, peripheral 17 8 - 25 mg/dL [facility] Blood 11/29/2024 2:04 PM EDT 11/29/2024 2:54 PM EDT us Marcial Maya MD LAB BLOOD ORDERABLES Fi nal Result [address] [address] * POCT Glucose (11/29/2024 7:42 AM EDT) Only the most recent of28 resultswithin the time period is included. Glucose, POCT 84 70 - 110 mg/dL [facility] 11/29/2024 7:42 AM EDT 11/29/2024 7:45 AM EDT us Pieter Topete MD POINT OF CARE TEST ORDERABLES Final Result Performing Organization Address [facility] de Phone Number [address] [address] * (ABNORMAL) Creat. Comment (11/29/2024 3:17 AM EDT) Only the most recent of15 resultswithin the time period is included. Creat Comment Increasing Creatinine Value on your Patient: The calculated GFR may thus overestimate the true GFR and should not be used to guide medication dosing.(A) Negative [facility] 11/29/2024 3:17 AM EDT 11/29/2024 3:46 AM EDT us Lor Martin MD, MPH LAB BLOOD ORDERABLES Fi nal Result Performing Organization Address City/[facility] Co de Phone Number [address] [address] * (ABNORMAL) CBC (11/29/2024 3:17 AM EDT) Only the most recent of20 resultswithin the time period is included. WBC 4.78 4.00 - 11.00 K/uL [facility] RBC 2.56(L) 4.00 - 5.20 M/uL [facility] HGB 7.9(L) 12.0 - 16.0 g/dL [facility] HCT 26.2(L) 36.0 - 46.0 % [facility] PLT 111(L) 150 - 450 K/uL [facility] MCV 102.3(H) 80.0 - 100.0 fL [facility] MCH 30.9 27.0 - 31.0 pg [facility] MCHC 30.2(L) 32.0 - 36.0 g/dL [facility] RDW 17.0(H) 11.5 - 14.5 % [facility] MPV 10.7 8.4 - 12.0 fL [facility] NRBC 0.00 0.00 /100 WBCs [facility] ABSOLUTE NRBC 0.00 0.00 K/uL [facility] Blood 11/29/2024 3:17 AM EDT 11/29/2024 3:46 AM EDT Alfredo Fernando MD LAB BLOOD ORDERABLES Samira l Result [address] [address] * Phosphorus (11/29/2024 3:17 AM EDT) Only the most recent of14 resultswithin the time period is included. PHOSPHORUS 4.2 2.6 - 4.5 mg/dL [facility] Blood 11/29/2024 3:17 AM EDT 11/29/2024 3:46 AM EDT us Minh Bonds MD LAB BLOOD ORDERABLES Final Result Performing Organization Address City/[facility]/ZIP Co de Phone Number [address] [address] * Magnesium (11/29/2024 3:17 AM EDT) Only the most recent of19 resultswithin the time period is included. MAGNESIUM 2.4 1.7 - 2.4 mg/dL [facility] Blood 11/29/2024 3:17 AM EDT 11/29/2024 3:46 AM EDT Alfredo Fernando MD LAB BLOOD ORDERABLES Samira l Result Performing Organization Address City/[facility]/ZIP Co de Phone Number [address] [address] * (ABNORMAL) Basic metabolic panel (11/29/2024 3:17 AM EDT) Only the most recent of23 resultswithin the time period is included. SODIUM 137 135 - 145 mmol/L [facility] POTASSIUM 6.0(H) 3.4 - 5.0 mmol/L [facility] Comment:SPECIMEN NOT HEMOLYZ ED CHLORIDE 98 98 - 108 mmol/L [facility] CO2 26 23 - 32 mmol/L [facility] BUN 32(H) 8 - 25 mg/dL [facility] CREATININE 7.00(H) 0.50 - 1.00 mg/dL [facility] Comment:INCREASED GLUCOSE 100 70 - 110 mg/dL [facility] CALCIUM 9.2 8.5 - 10.5 mg/dL [facility] EGFR 7(L) >59 mL/min/1. 73m2 [facility] Comment:Estimated glomerular filtration rate calculated using the CKD-EPI refit equation. ANION GAP 13 3 - 17 mmol/L [facility] Blood 11/29/2024 3:17 AM EDT 11/29/2024 3:46 AM EDT Alfredo Fernando MD LAB BLOOD ORDERABLES Samira l Result [address] [address] * IR Hemodialysis Catheter Removal; Chest; Left; [...] Dose: Fluoroscopy Time: minutes. Cumulative Dose: mGy. Qrlk-Bcue-Xfwqmbp: To convert from mGy x cm^2 to [...] tunneled catheter removal. Procedure Note Jenise Britton, TAXI DRIVER - 11/27/2024 Procedure: left HD tunneled catheter removal Clinical History and Indication: functioning AVF Operators: Jenise Britton NP Pre-Procedural Medications: Antibiotics: See medication administration in electronic medical recordfor details. Other: None. Intra-Procedural Medications and Contrast: See medication administrationin electronic medical record for details. Patient Radiation Dose: Fluoroscopy Time: minutes. Cumulative Dose: mGy. Tqxw-Oztl-Mphcbpu: To convert from mGy x cm^2 to [...] aborted due to pain). TECHNIQUE: 15.41 mCi [id number]-[id number] inhalation aerosol was inhaled and a SPECT [...] aborted due to pain). TECHNIQUE: 15.41 mCi [id number]-[id number] inhalation aerosol was inhaled and aSPECT of [...] Cardiomegaly. Bones/Soft Tissues: Unchanged Procedure Note Shai Renee, - 11/23/2024 XR CHEST PORTABLE Referring clinician's provided indication for this examination in [facility]:Respiratory failure; Needs CXR within 24 hr for [...] clinician's provided indication for this examination in [facility]: Dyspnea (Shortness of Breath); Pt with increasing [...] clinician's provided indication for this examination in [facility]:Dyspnea (Shortness of Breath); Pt with increasing SOB [...] large cardiac silhouette with interstitial pulmonary edema. Skuh Gayle MD [facility] XR CHEST Final Res ult * XR Chest Portable (11/20/2024 2:37 PM EDT) Anatomical Region Laterality Modality Chest Computed Radiogr aphy 11/20/2024 2:41 PM EDT Impressions 11/20/2024 3:12 PM EDT Tubes and lines as described. Cardiomegaly. Persistent interstitial pulmonary edema. Narrative 11/20/2024 3:12 PM EDT XR CHEST PORTABLE Referring clinician's provided indication for this examination in [facility]: Dyspnea (Shortness of Breath); Evaluating SOB iso [...] clinician's provided indication for this examination in [facility]:Dyspnea (Shortness of Breath); Evaluating SOB iso pulmonary [...] as described. Cardiomegaly. Persistent interstitial pulmonary edema. Minh Bonds MD [facility] XR CHEST Final Resul t * (ABNORMAL) LFTs (hepatic panel) (11/20/2024 7:30 AM EDT) Only the most recent of10 resultswithin the time period is included. ALBUMIN 4.3 3.3 - 5.0 g/dL [facility] TOTAL BILIRUBIN 0.3 0.0 - 1.0 mg/dL [facility] DIRECT BILIRUBIN 0.1 0.0 - 0.3 mg/dL [facility] ALKALINE PHOSPHATASE 106(H) 30 - 100 U/L [facility] AST 20 9 - 32 U/L [facility] ALT 12 7 - 33 U/L [facility] TOTAL PROTEIN 7.2 6.0 - 8.3 g/dL [facility] GLOBULIN 2.9 1.9 - 4.1 g/dL [facility] Blood 11/20/2024 7:30 AM EDT 11/20/2024 7:39 AM EDT us Alfredo Fernando MD LAB BLOOD ORDERABLES Samira smith Result [address] [address] * OR ANESTHESIA PERIPHERAL BLOCK PLACEHOLDER, ANES BLOOD PATCH PERFORMABLE (11/19/2024 12:58 PM EDT) Narrative Zhen Sanchez MD - 11/19/2024 12:58 PM EDT Zhen Sanchez MD 11/19/2024 12:59 PM Peripheral Block Placement Procedure Note: Reason for block: surgeon request, at patient's request and post op pain managment Block performed by: fellow/resident/HOT MILL TIN ROLLER Anesthesiologist: Ashley Kendrick MD Fellow/Resident/HOT MILL TIN ROLLER: Zhen Sanchez MD [place] Protocol Performed: consent obtained, patient identified with 2 identifiers, correct procedure verified, correct site and laterality confirmed, verified equipment, coagulation status reviewed and implant history reviewed. Procedure Details: ASA monitors applied during procedure and vitals signs recorded in nursing flowsheet during procedure. Block type: single shot Ultrasound device used: [employer] E Laterality: left Block location: upper extremity [...] tolerated by the patient us Leonel Phan OR ANESTHESIA Final Result * ANESTHESIA POINT OF CARE IMAGE CAPTURE (11/19/2024 11:41 AM EDT) Anatomical Region Laterality Modality Ultrasound Narrative 11/19/2024 11:40 AM EDT Zhen Sanchez MD 11/19/2024 11:41 AM Anesthesia Point of Care Image Capture Performed by: Zhen Sanchez MD Authorized by: Leonel Phan Accession Number: [id number] us Leonel Phan IMG POINT OF CARE [...] left lower extremity. us Minh Bonds MD US VASCULAR Final Resul t * NM [...] necessary edited the report originally created by Nick Lerma. Narrative 11/17/2024 5:09 PM EDT NM [...] in the absence of lung perfusionimaging. ATTESTATION: I, Dr. Fabricio Moncada as teaching physician, have reviewedthe images for this case and if necessary edited the report originallycreated by Nick Lerma. us Minh Bonds MD [facility] NM LUNG SCAN Final Resu lt * [...] blastic lesions. Procedure Note Garth De Dios, [facility] [place] - 11/17/2024 CT CHEST (HIGH RESOLUTION) WITHOUT CONTRAST Referring clinician's provided indication for this examination in Epic: *Interstitial lung disease; Pt with ESRD on [...] AND LIMITED DOPPLER (11/17/2024 9:47 AM EDT) Pathologist [facility] Body Surface Area 1.7 m2 Height 165 [...] and is positive for evidence of a klnxa-fv-jvwu shunt. Tricuspid Valve The severity of tricuspid [...] and is positive for evidence of a jukqi-wh-kpvz shunt. IAS/IVS There are rare late-appearing contrast bubbles in the left heart with Valsalva maneuver but not at rest. The late appearance of these bubbles in the left heart is consistent with intrapulmonary shunting; however, their appearance only with Valsalva maneuver suggests the presence of a patent foramen ovale. Minh Bonds MD CV ECHO ORDERABLES Final Re sult * Hepatitis C viral load (PCR) (11/17/2024 5:58 AM EDT) HCV RNA PCR Not Detected Not Detected IU/mL [facility] Comment: (NOTE) Assay Range: 15-100,000,000 IU/ml In rare instances, there might be a 1.0 - 1.5 log increase measured viral load observed in individuals with genotype 3a and 4. Please refer any questions to the Molecular Diagnostics Lab at [phone]. This is a quantitative assay utilizing real-time [...] MD NON CULTURE MICROBIOLOGY Fi nal Result [address] [address] * Type and Screen (ABO,Rh,Antibody Screen) (11/17/2024 5:58 AM EDT) Expiration Date of Sample 11/20/2024 11:59 PM [facility] ABO O 11/17/2024 6:55 AM EDT [facility] Rh Positive 11/17/2024 6:55 AM EDT [facility] Resulting Agency [facility] Antibody Screen Negative 11/17/2024 7:22 AM EDT [facility] Blood 11/17/2024 5:58 AM EDT 11/17/2024 6:11 AM EDT us Minh Bonds MD BLOOD BANK TEST ORDERABLES Final Result Performing Organization Address [facility] Co de Phone Number [address] [address] * Scl-70 antibody (11/17/2024 5:55 AM EDT) ANTI-SCL-70 ANTIBODY 4.71 0.00 - 19.99 [facility] SCL 70 INTERP Negative Negative [facility] Blood 11/17/2024 5:55 AM EDT 11/17/2024 6:12 AM EDT us Minh Bonds MD LAB BLOOD ORDERABLES Final Result [address] [address] * Double stranded DNA antibodies (11/17/2024 5:55 AM EDT) ANTI DSDNA ANTIBODY Negative at 1:10 [facility] Comment: Christina Roman M.D., Director Clinical Immunology Laboratory [id number] Normal: Negative at 1:10 To interpret a negative test for anti-[place] or double stranded DNA antibodies in a [...] BLOOD ORDERABLES Final Result Performing Organization Address [facility] de Phone Number [address] [address] * (ABNORMAL) Complement C3 (11/17/2024 5:55 AM EDT) C3 65(L) 81 - 157 mg/dl [facility] Blood 11/17/2024 5:55 AM EDT 11/17/2024 6:19 AM EDT Minh Bonds MD LAB BLOOD ORDERABLES Final Result Performing Organization Address [facility] Phone Number [address] [address] * Complement C4 (11/17/2024 5:55 AM EDT) C4 22 12 - 39 mg/dL [facility] Blood 11/17/2024 5:55 AM EDT 11/17/2024 6:19 AM EDT us Minh Bonds MD LAB BLOOD ORDERABLES Final Result Performing Organization Address [facility] de Phone Number [address] [address] * Antinuclear antibody (MALLY) (11/17/2024 5:55 AM EDT) MALLY Result Negative Negative [facility] Comment: Christina Roman M.D., Director Clinical Immunology Laboratory [id number] Method is indirect immunofluorescence assay (IFA) with digital and/or optical microscopy evaluation. Blood 11/17/2024 5:55 AM EDT 11/17/2024 6:12 AM EDT us Minh Bonds MD LAB BLOOD ORDERABLES Final Result Performing Organization Address [facility] Co de Phone Number [address] [address] * (ABNORMAL) NT-proBNP (11/17/2024 5:55 AM EDT) NT-PROBNP 9,818(H) 0 - 450 pg/mL [facility] Comment: Reference Range: Age <50 years: 0-450 [...] BLOOD ORDERABLES Final Result Performing Organization Address [facility] Co de Phone Number [address] [address] * XR SPINE ENTIRE SURVEY 4 OR [...] the thoracic or lumbosacral spine. Minimaldegenerative change. Minh Bonds MD IMG XR SPINE Final Resul t * Lab Add On: phos (11/16/2024 8:08 AM EDT) Only the most recent of5 resultswithin the time period is included. TEST REQUESTED [facility] Comments (Chemistry) ADD ON COMPLETE. [facility] Comment:SEE [id number] 11/16/2024 8:08 AM EDT 11/16/2024 10:05 AM EDT Minh Bonds MD LAB BLOOD ORDERABLES Final Result [facility] [address] [place] [address] * RIGHT HEART CATHETERIZATION (11/15/2024 6:20 PM EDT) Anatomical Region Laterality Modality X-Ray Angiograph y 11/15/2024 6:20 PM EDT Narrative 11/23/2024 9:41 PM EDT Cardiac Catheterization Report [facility] FINAL REPORT PATIENT NAME:HIMA [...] 60.9 AO (O2 Cont./Sat.):117.1 / 93.0 EQUIPMENT: Velasca, S-Blake Micropuncture, Micropuncture Access, 5F, 15 [employer] [place], Sheath, 8F, 10 ICU MEDICALI C [employer] ICU MEDICAL, TD Thermodilution Catheter MULTIFLEX PENTALUMEN, Lagrange-Paolo Catheter, 8F, 110 [employer], BLAKE Stiffened Dilator, Sheath, 4F, 10 MEDICATIONS: [...] stable. EMERGENCY CONTACTS: Trent Roche M.D. Pager: [phone] This report has been electronically signed by [...] Roche MD - 11/23/2024 Cardiac Catheterization Report [facility] CARDIAC CATHETERIZATION LABORATORY FINAL REPORT PATIENT NAME:HIMA MORRIS AGE: 39 CASE DATE/TIME: 11/15/2024 05:58 PM DESTINATION: G7 DIAGNOSTIC ATTENDING MD: Ternt Roceh M.D. DIAGNOSTIC FELLOW MD: Laureano Jiménez MD [...] 60.9 AO (O2 Cont./Sat.):117.1 / 93.0 EQUIPMENT: Velasca S-Blake Micropuncture, Micropuncture Access, 5F, 15 [employer] [place], Sheath, 8F, 10 ICU MEDICALI C [employer] ICU MEDICAL, TD Thermodilution CatheterMULTIFLEX PENTALURASTA, Lagrange-Paolo Catheter, 8F, 110 VelascaBLAKE Stiffened Dilator, Sheath, 4F, 10 MEDICATIONS: FENTANYL [...] stable. EMERGENCY CONTACTS: Trent Roche M.D. Pager: [phone] This report has been electronically signed by [...] - Critical values: <40 or >500 mg/dl Result [facility] Jenny Ramirez MD, PhD CV CARDIAC CATH ORDERABL ES Final Result * (ABNORMAL) Hepatitis C antibody, qualitative (11/15/2024 12:30 PM EDT) Pathologist [facility] HCV ANTIBODY Positive( A) Negative [facility] Comment:Presumptive evidence of antibodies to HCV. Blood 11/15/2024 12:3 0 PM EDT 11/15/2024 12:53 PM EDT Result [facility] Angelita Qureshi MD LAB BLOOD ORDERABLES Final Re sult Performing Organization Address [facility] Co de Phone Number [address] [address] * Hepatitis B core antibody, total (11/15/2024 12:30 PM EDT) [facility] HEP B CORE AB, TOT Negative Negative [facility] Comment:A nonreactive final interpretation indicates that anti-HBc antibodies were not detected in the sample. It is possible that the individual is not infected with HBV. Blood 11/15/2024 12:3 0 PM EDT 11/15/2024 12:53 PM EDT Result [facility] Angelita Qureshi MD LAB BLOOD ORDERABLES Final Re sult Performing Organization Address [facility] Co de Phone Number [address] [address] * Hepatitis B viral DNA PCR, Quantitative (11/15/2024 12:30 PM EDT) [facility] HBV DNA, QUANTITATIVE Not Detected Not Detected IU/mL [facility] Comment: (NOTE) Assay Range: 10 - 1,000,000,000 IU/mL Validated against the 2nd World Health Organization (WHO) standards. Please refer any questions to the Molecular Diagnostics Lab at [phone]. This test can be used to measure HBV DNA levels at baseline and during treatment to aid in assessing response to treatment. A test result of less than the lower limit of quantification (LLoQ) (<10 IU/mL) should be interpreted as HBV DNA not quantifiable. Blood (Blood) 11/15/2024 12: 30 PM EDT 11/15/2024 12:54 PM EDT Angelita Qureshi MD NON CULTURE MICROBIOLOGY Samira l Result Performing Organization Address [facility] Co de Phone Number [address] [address] * Hepatitis B surface antibody (11/15/2024 12:30 PM EDT) HBV SURFACE AB,QUANT 70.08 mIU/mL [facility] Comment:Results less than 12 .00 mIU/mL are not consistent with protective immunity. Results of 12.00 mIU/mL or more indicate protective immunity. HBV SURFACE AB,QUAL Positive [facility] Comment:Patient is considere d immune to HBV infection. Blood 11/15/2024 12:3 0 PM EDT 11/15/2024 12:53 PM EDT Angelita Qureshi MD LAB BLOOD ORDERABLES Final Re sult Performing Organization Address [facility] Co de Phone Number [address] [address] * Hepatitis B surface antigen (11/15/2024 12:30 PM EDT) HBV SURFACE ANTIGEN Negative Negative [facility] Blood 11/15/2024 12:3 0 PM EDT 11/15/2024 12:53 PM EDT Angelita Qureshi MD LAB BLOOD ORDERABLES Final Re sult Performing Organization Address [facility] Co de Phone Number [address] [address] * HCG (Quantitative, Blood) (11/15/2024 6:27 AM EDT) Only the most recent of4 resultswithin the time period is included. HCG (Quantitative) <6 <6 IU/L [facility] Comment: NON-: <6 BORDERLINE: 6-15 11/15/2024 6:27 AM EDT 11/15/2024 11:36 AM EDT Jones Cummins MD LAB BLOOD ORDERABLES Final Re sult Performing Organization Address [facility] Co de Phone Number [address] [address] * Lactate (blood gas) (11/13/2024 7:24 AM EDT) Lactate, blood 1.5 0.5 - 2.0 mmol/L [facility] Blood 11/13/2024 7:24 AM EDT 11/13/2024 7:40 AM EDT Minh Bonds MD LAB BLOOD ORDERABLES Final Result Performing Organization Address [facility] Co de Phone Number [address] [address] * (ABNORMAL) Venous blood gas (11/13/2024 7:24 AM EDT) FIO2 UNSPEC. FIO2/L min [facility] PH 7.28(L) 7.30 - 7.40 [facility] PCO2 55(H) 38 - 50 mm[Hg] [facility] PO2 47 35 - 50 mm[Hg] [facility] Base Excess, unspecified NEG 0.0 - 3.0 mmol/L [facility] [facility] Comment:1.7NEG HCO3, unspecified 26 24 - 30 mmol/L [facility] Blood 11/13/2024 7:24 AM EDT 11/13/2024 7:40 AM EDT Minh Bonds MD LAB BLOOD ORDERABLES Final Result Performing Organization Address [facility] Co de Phone Number [address] [address] * (ABNORMAL) Troponin (11/13/2024 5:44 AM EDT) Only the most recent of4 resultswithin the time period is included. Troponin-T, HS Gen5 127(H) 0 - 9 ng/L [facility] Comment:Hemolyzed specimen. Troponin T result may be falsely low. 11/13/2024 5:44 AM EDT 11/13/2024 6:15 AM EDT Jones Cummins MD LAB BLOOD ORDERABLES Final Re sult [facility] [address] [place] [address] * XR Chest Portable (11/12/2024 5:59 PM EDT) Anatomical Region Laterality Modality Chest Computed Radiogr aphy 11/13/2024 9:32 AM EDT Impressions 11/13/2024 9:36 AM EDT Subtle perihilar opacity may represent atelectasis or mild pulmonary edema. No pneumonia. No pneumothorax. Narrative 11/13/2024 9:36 AM EDT XR CHEST PORTABLE Referring clinician's provided indication for this examination in [facility]: Pain; Pt with ESRD on HD and [...] clinician's provided indication for this examination in Epic:Pain; Pt with ESRD on HD and hyperK [...] 5:40 PM EDT) FIO2 UNSPEC. FIO2/L min [facility] PH 7.23(L) 7.30 - 7.40 [facility] PCO2 66(H) 38 - 50 mm[Hg] [facility] PO2 29(L) 35 - 50 mm[Hg] [facility] Base Excess, unspecified NEG 0.0 - 3.0 mmol/L [facility] Comment:1.6NEG HCO3, unspecified 27 24 - 30 mmol/L [facility] SODIUM 136 135 - 145 mmol/L [facility] POTASSIUM 4.2 3.5 - 5.0 mmol/L [facility] IONIZED CALCIUM 1.27 1.14 - 1.30 mmol/L [facility] Glucose, whole bld 97 70 - 110 mg/dL [facility] HGB (BG) 12.2 12.0 - 16.0 g/dl [facility] SO2-VENOUS (SO2, venous) 39.2(L) 60.0 - 85.0 % [facility] Comment:QUANTITY NOT SUFFICI ENT TO VERIFY Blood 11/12/2024 5:40 PM EDT 11/12/2024 5:52 PM EDT Minh Bonds MD LAB BLOOD ORDERABLES Final Result Performing Organization Address City/[facility]/ZIP Co de Phone Number [address] [address] * PTT (11/12/2024 5:40 PM EDT) Pathologist [facility] APTT 34.6 24.0 - 37.5 sec [facility] Comment:Check MAR for the ta rget range that is ordered for your patient. Blood 11/12/2024 5:40 PM EDT 11/12/2024 5:51 PM EDT Minh Bonds MD LAB BLOOD ORDERABLES Final Result Performing Organization Address [facility] Co de Phone Number [address] [address] * PT-INR (11/12/2024 5:40 PM EDT) Pathologist [facility] PT 11.9 10.0 - 13.0 sec [facility] INR 1.0 0.9 - 1.1 [facility] Blood 11/12/2024 5:40 PM EDT 11/12/2024 5:51 PM EDT Minh Bonds MD LAB BLOOD ORDERABLES Final Result Performing Organization Address City/[facility]/ZIP Co de Phone Number [address] [address] * Fibrinogen (11/12/2024 5:40 PM EDT) FIBRINOGEN 271 200 - 400 mg/dL [facility] Blood 11/12/2024 5:40 PM EDT 11/12/2024 5:51 PM EDT Minh Bonds MD LAB BLOOD ORDERABLES Final Result Performing Organization Address City/[facility] Co de Phone Number [address] [address] * (ABNORMAL) D-dimer (11/12/2024 5:40 PM EDT) Pathologist [facility] D-DIMER 2,207(H) <500 ng/mL [facility] Comment:A negative d-dimer r esult (at a cut off of 500 ng/mL FEU) when combined with a clinical assessment of low pretest probability has been shown to have a high negative predictive value for DVT or PE. Clinical correlation is required. Blood 11/12/2024 5:40 PM EDT 11/12/2024 5:51 PM EDT Minh Bonds MD LAB BLOOD ORDERABLES Final Result Performing Organization Address City/[facility]/ZIP Co de Phone Number [address] [address] * Lactate (11/12/2024 5:40 PM EDT) LACTIC ACID (MMOL/L) 1.9 0.5 - 2.0 mmol/L [facility] Blood 11/12/2024 5:40 PM EDT 11/12/2024 5:52 PM EDT us Minh Bonds MD LAB BLOOD ORDERABLES Final Result [facility] [address] [place] [address] * ECG 12-LEAD (11/12/2024 5:30 PM EDT) Systolic Blood Pressure [facility] Diastolic Blood Pressure [facility] Ventricular Rate EKG/MIN 58 BPM [facility] Atrial Rate 58 BPM [facility] OR Interval 186 ms [facility] QRS Duration 100 ms [facility] QT Interval 426 ms [facility] QTC Interval 418 ms [facility] P [place] 68 degrees [facility] R Wave [place] 40 degrees [facility] T Wave [place] 145 degrees [facility] 11/12/2024 5:30 PM EDT [...] ORDERABLES Final Resul t Performing Organization Address City/[facility]/ZIP Co de Phone Number [facility] * TTE [...] MD CV ECHO ORDERABLES Final Re sult from Last 3 Months Insurance MEDICARE PART A & B [facility] [place] [id number] [facility] [place] MED[place] MEDICARE PART A & B [facility]ALTH MEDICARE PART A & [facility] [place] PART A & [place] A & B [facility] [place] MED[place]ARE PART A & [facility] [place] [facility] A & [facility] Advance Directives For more information, please contact: [phone] (9AM - 5PM [facility], Friday-Friday) * Full Code (Latest Code Status on File) Date Activated Date Inactivated Comments 11/01/2024 1:38 PM Question Answer Comments Code Status Confirmed With: Patient Care Teams Filter Pulp Washer Relationship Specialty [place] [address] [place] [address] PCP - General Internal Medicine 12/17/21 Additional Source Comments The information contained in this document represents components of the legal health record. It is not the complete legal health record.[facility]
--- OUTSIDE RECORDS SUMMARY | 2025-02-12 06:04 | XMS_ITS | Encounter Summary ---
Author Organization [facility] Address [address] [place] [address] Care Team Providers Care Surgical Elastic Knitter Name Role Phone Kassie Reyna MD Primary Care Provider +1- [phone] Encounter Details Date Type Department Care Team (Late st Contact Info) Description 09/12/2015 Scanned Document [facility] [address] [facility] [address] [facility] 4th [place] [address] Malick Phan MD [address] [place] [address] [place] [phone] Social History Tobacco Use Types Packs/Day Years [...] MD LAB BLOOD ORDERABLES Final Resul t [facility] [place], [place], [facility] documented in this encounter Visit Diagnoses Not [...] PM EST R/O RSV 07/22/2024 07/22/2024 07/22/2024 4:4 1 PM EST R/O Respiratory Virus 07/22/2024 07/22/20242024 4:41 PM EST R/O COVID-19 07/22/2024 07/22/2024 07/22/2024 4:41 PM EST Influenza A 07/22/2024 07/22/2024 08/02/2024 1:13 PM EST documented as of this encounter Care Teams Surgical Elastic Knitter Relationship Specialty Start Date End Date Kassie Reyna MD [address] [address] PCP - General Internal Medicine 07/29/22 documented as of this encounter
--- OUTSIDE RECORDS SUMMARY | 2025-02-12 06:04 | XMS_ITS | Encounter Summary ---
Author Organization [facility] Address [address] [place] [address] Phone Care Team Providers Care Child Care Centre Manager Name Role Phone Rashid Helton MD Primary Care Provider [phone] Encounter Details Date Type Department Care Team (Late st Contact Info) Description 08/23/2024 Documentation Only [facility] [place], [address] [place] [phone] Waqar Wellington MD [address] [place] [address] Social History Tobacco Use Types [...] on filedocumented in this encounter Care Teams Child Care Centre Manager Relationship Specialty Start Date End Date Rashid Helton MD [facility] [address] [place] [address] PCP - General 06/12/20 documented as of this encounter
--- OUTSIDE RECORDS SUMMARY | 2025-02-12 06:04 | XMS_ITS | Patient Health Record ---
Author Organization [facility] Address [address] [place] [address] Care Team Providers Care Shovel Logger Name Role Phone Self, Self Unavailable Unavailable [...] W/U Status Risk Notes Problem Chronic pain (25524685) Other chronic pain (G89.29) Active confirmed Problem Chronic pain syndrome (579773395) Chronic pain syndrome (G89.4) Active confirmed Problem Low back pain (777518949) Low back pain (M54.5) Active confirmed Problem End stage renal disease (78226822) End stage chronic kidney disease (N18.6) Active confirmed Plan Of Treatment Pending Test Test Name Order Date UDT - POC 11/01/2019 Insurance Providers Payer Name Payer Address Payer Phone Subscriber Number Group Number Insured Name Patient Relationship to Insured Coverage Start Date Coverage End Date Medicare-[place] Medicare [address] [place] [address] [id number] Flavio Morris Self - patient is the insured [facility] [address] [address] [place] [address] [id number] Flavio Morris Self - patient is the insured Medical (General) History Medical History History ICD Code anxiety Kidney Disease seizures allergies Surgical History Surgery Date(Month/Year) section DNC Angiogram fistula repair parathyroidectomy
--- OUTSIDE RECORDS SUMMARY | 2025-02-12 06:04 | XMS_ITS | Encounter Summary ---
Author Organization [facility] Address [address] [place] [address] Care Team Providers Care Newspaper Manager Name Role Phone Kassie Reyna MD Primary Care Provider [phone]- [phone] Reason for Visit * Reason Comments Hospital Discharge Follow Up Encounter Details Date Type Department Care Team (Late st Contact Info) Description 02/08/2021 Patient Outreach [facility]ICAL A [address] [place] [address] Jo Mueller RN Hospital Discharge Follow Up [...] documented as of this encounter Care Teams Newspaper Manager Relationship Specialty Start Date End Date Kassie Reyna MD [address] [address] PCP - General Internal Medicine 07/29/22 documented as of this encounter
--- OUTSIDE RECORDS SUMMARY | 2025-02-12 06:04 | XMS_ITS | Encounter Summary ---
Author Organization [facility] Address [address] [place] [address] Care Team Providers Care Electric Meter Tester Shop Name Role Phone Kassie Reyna MD Primary Care Provider [phone]- [phone] Dialysis, [facility] Unavailable [phone] Lana Quintana MD Unavailable Gómez Whitley MD Unavailable Encounter Details Date Type Department Care Team (Late st Contact Info) Description 09/05/2022 Scanned Document [facility] Physicians Department of Nephrology and Access Surgery [place] [address] [place] [phone] Dialysis, [facility] [address] [phone] Social History Tobacco Use Types Packs/Day Years [...] on filedocumented in this encounter Care Teams Electric Meter Tester Shop Relationship Specialty Start Date End Date Kassie Reyna MD [address] [place] [address] PCP - General Internal Medicine 12/24/21 Dialysis, [facility] [address] [place] [address] Dialysis Unit 09/05/22 Lana Quintana MD [address] [place] [address] Physician Nephrology 09/11/22 Gómez Whitlye MD [address] [place] [address] Surgery, General 10/25/22 documented as of this encounter
--- OUTSIDE RECORDS SUMMARY | 2025-02-12 06:04 | XMS_ITS | Encounter Summary ---
Author Organization [facility] Address [address] [place] [address] Care Team Providers Care Machine Sand Mixer Name Role Phone Kassie Reyna MD Primary Care Provider [phone]- [phone] Encounter Details Date Type Department Care Team (Late st Contact Info) Description 02/19/2021 Telephone MEDICAL ONCOLOGY [address] [place] [address] Vanessa Serrano RN Social History Tobacco Use [...] documented as of this encounter Care Teams Machine Sand Mixer Relationship Specialty Start Date End Date Kassie Reyna MD [address] [address] PCP - General Internal Medicine 07/29/22 documented as of this encounter
--- OUTSIDE RECORDS SUMMARY | 2025-02-12 06:04 | XMS_ITS | Encounter Summary ---
Author Organization [facility] Address [address] [place] [address] Care Team Providers Care Chaplaincy Name Role Phone Kassie Reyna MD Primary Care Provider +1- [phone] Encounter Details Date Type Department Care Team (Late st Contact Info) Description 12/13/2020 Abstract [facility] [address] [facility] [address] [facility] [address]th [place] [address] Katey Parr Social History Tobacco Use Types [...] documented as of this encounter Care Teams Chaplaincy Relationship Specialty Start Date End Date Kassie Reyna MD [address] [phone] PCP - General Internal Medicine 07/29/22 documented as of this encounter
--- OUTSIDE RECORDS SUMMARY | 2025-02-12 06:04 | XMS_ITS | Encounter Summary ---
Author Organization [facility] Address [address] [place] [address] Care Team Providers Care Washing Machine Loader Name Role Phone Kassie Reyna MD Primary Care Provider [phone]- [phone] Dialysis, [facility] Unavailable [phone] Lana Quintana MD Unavailable Gómez Whitley MD Unavailable Encounter Details Date Type Department Care Team (Late st Contact Info) Description 09/11/2022 Scanned Document [facility] Department of Nephrology and Access Surgery [address] [phone] Noa Beatty MD [address] [place] [id number] Social History Tobacco Use Types Packs/Day Years [...] on filedocumented in this encounter Care Teams Washing Machine Loader Relationship Specialty Start Date End Date Kassie Reyna MD [address] [place] [address] PCP - General Internal Medicine 12/24/21 Dialysis, [facility] [address] [place] [address] Dialysis Unit 09/05/22 Lana Quintana MD [address] [place] [address] Physician Nephrology 09/11/22 Gómez Whitley MD [address] [place] [address] Surgery, General 10/25/22 documented as of this encounter
--- OUTSIDE RECORDS SUMMARY | 2025-02-12 06:04 | XMS_ITS | Clinical Summary ---
Author Organization [address] Address [address] [place] [address] Care Team Providers Care Interpersonal Communications Professor Name Role Phone Kassie Reyna MD Primary Care Provider +1- [phone] Allergies Active Allergy Reactions Criticality Noted Date [...] has PMHx HTN, reports recent admission at [facility] for hypertensive emergency. 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 PMHx/PSHx: MRSA due to permcath 01/2015, asthma, chronic b/l back pain (sees pain mgt), pre-eclampsia, seizures (during on meds and no recurrence) parathyroidectomy 2014 Dialysis Center: [facility] Fax: Mode: Home Hemo Schedule: Anticoagulation: none Sensitization : - x1 spontanious x1 elective Transplant: no Transfusions: no CPRA: 93% CONSENT Status Date Comments 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 Moved from [facility] to [place] [facility] transplant list Essential hypertension, benign 04/23/2006 Anxiety [...] drink = 0.6 oz pur e alcohol) [facility] Utilities Answer Date Recorded In the past 12 months has th e electric, gas, oil, or water [employer] threatened to shut off services in your [...] this topic Medical Devices Implanted Type Area Marketing Coordinator Device Identifier Shelf Expiration Date Model / Serial / Lot Kit Catheter Hemo 2lum Str Lng Trm Glidepath [id number] - [id number] Implanted:Qty: 1 on 09/30/2024 by Devonte Sales MD at [facility] [address] Implant CR BARD [id number] 10/30/2025 [id number] / / [id number] Procedures Procedure Name Priority Date/Time Associated Diagnosis [...] 136 - 144 mmol/L 10/23/2024 12:27 PM [facility] DEPART[facility] OF [facility]ATORY MEDICINE Potassium 5.1 3.3 - 5.3 mmol/L 10/23/2024 12:27 PM [facility] Chloride 97(L) 98 - 107 mmol/L 10/23/2024 12:27 PM [facility]IC[facility] CO2 24 20 - 30 mmol/L 10/23/2024 12:27 PM [facility] OF LABORATORY MEDICINE Anion Gap 14 7 - 17 10/23/2024 12:27 PM [facility]ORY [facility]ICINE Glucose 125(H) 70 - 100 mg/dL 10/23/2024 12:27 PM [facility]IC[facility] BUN 33(H) 6 - 20 mg/dL 10/23/2024 12:27 PM [facility] Creatinine 7.57(H) 0.40 - 1.30 mg/dL 10/23/2024 12:27 PM [facility]IC[facility] Calcium 7.8(L) 8.8 - 10.2 mg/dL 10/23/2024 12:27 PM [facility]ORY [facility]IC[facility] BUN/Creatinine Ratio 4.4(L) 8.0 - 23.0 10/23/2024 12:27 PM [facility]IC[facility] eGFR (Creatinine) 7(L) >=60 mL/min/1.7 3m2 10/23/2024 12:27 PM [facility]ICINE Comment: [facility] utilizes CKD-EPI Creatinine 2020 to report eGFR. Values < 60 mL/min/1.73 m2 may indicate CKD if present for more than three months AND creatinine is at steady state. The eGFR provides a rough estimate of kidney function. For further guidance, please refer to the CKD: Adult Med Admin Signature pathway. Creatinine Delta 10/23/2024 12:27 PM [facility]IC[facility] Comment:No previous creatini ne <5.00 mg/dL is available within the previous 12 months to calculate a delta creatinine. Blood ARM NEC / Unknown Venipuncture / Unknown 10/23/2024 11:18 AM EDT 10/23/2024 11:38 AM EDT us Golden Gordillo MD LAB BLOOD ORDERABL ES Final Result [facility] DEPARTMENT OF LABORATORY MEDICINE [address] [place] [address] * HIV-1/HIV-2 antibody/antigen screen w/reflex ([facility]) (08/13/2022 3:32 PM EDT) HIV 1 and 2 Antibody/Antigen Screen Negative Negative 08/13/2022 9:02 PM EDT [facility] DEPARTMENT OF LABORATORY MEDICINE Comment:Interpretation: This specimen [...] ORDERABLES Samira l Result Performing Organization Address [facility] Co de Phone Number [facility] DEPARTMENT OF LABORATORY MEDICINE [address] [place] [address] * Hepatitis C Ab with reflex to HCV PCR (01/23/2021 6:51 AM EDT) Hepatitis C Antibody Non-Reacti ve Non-Reacti ve 01/23/2021 11:31 AM EDT [facility] DEPARTMENT OF PATHOLOGY Blood Venipuncture / Unknown 01/23/2021 6:51 AM EDT 01/23/2021 7:09 AM EDT us Minh Pike MD LAB BLOOD ORDERABLES Final Resu lt [facility] DEPARTMENT OF PATHOLOGY [address] [place] [address] from Last 3 Months or Most Recently Relevant to Health Maintenance Insurance MEDICARE [id number] MEDICAID [place]ID [place] MEDICARE [id number] MEDICAID [place] MEDICARE [id number] MEDICAID [place]ID [place] [address] [place] [address] MEDICARE [place]ICAID [place] [address] [place] [address] MEDICARE [place]ICAID [place] Advance Directives * Full [...] the Code Status Discussed? Patient Care Teams Interpersonal Communications Professor Relationship Specialty Start Date End Date Kassie Reyna MD [address] [address] PCP - General Internal Medicine 07/29/22
--- OUTSIDE RECORDS SUMMARY | 2025-02-12 06:04 | XMS_ITS | Encounter Summary ---
Author Organization [facility] Address [address] [place] [address] Phone Care Team Providers Care Calibrator Barometers Name Role Phone Rashid Helton MD Primary Care Provider [phone] Encounter Details Date Type Department Care Team (Late st Contact Info) Description 09/02/2024 Documentation Only [facility] [place], [address] [facility] [place] [address] Lianna Fishman [address] [place] [phone] Social History Tobacco Use Types Packs/Day Years [...] on filedocumented in this encounter Care Teams Calibrator Barometers Relationship Specialty Start Date End Date Rashid Helton MD [facility] [address] [place] [address] PCP - General 06/12/20 documented as of this encounter
--- OUTSIDE RECORDS SUMMARY | 2025-02-12 06:04 | XMS_ITS | Encounter Summary ---
Author Organization [facility] Address [address] [place] [address] Care Team Providers Care Hairspring Assembler Name Role Phone Kassie Reyna MD Primary Care Provider +1- [phone] Encounter Details Date Type Department Care Team (Late st Contact Info) Description 10/04/2015 Documentation [facility] [address] [facility] [address] [facility] [address] [place] [address] Isidoro New, PharmD Social History Tobacco Use Types Packs/Day Years [...] score of 8, High adherence. The CT ELECTROMECHANICAL EQUIPMENT TESTER was accessed and Ms. Morris is not [...] documented as of this encounter Care Teams Hairspring Assembler Relationship Specialty Start Date End Date Kassie Reyna MD [address] [phone] PCP - General Internal Medicine 07/29/22 documented as of this encounter
--- OUTSIDE RECORDS SUMMARY | 2025-02-12 06:04 | XMS_ITS | Encounter Summary ---
Author Organization [facility] Address [address] [place] [address] Phone Care Team Providers Care Garbage Collector Name Role Phone Rashid Helton MD Primary Care Provider [phone] Encounter Details Date Type Department Care Team (Late st Contact Info) Description 08/23/2024 Documentation Only [facility] [place], [address] [place] [phone] Waqar Wellington MD [address] [place] [address] Social History Tobacco Use Types [...] on filedocumented in this encounter Care Teams Garbage Collector Relationship Specialty Start Date End Date Rashid Helton MD [facility] [address] [place] [address] PCP - General 06/12/20 documented as of this encounter
--- OUTSIDE RECORDS SUMMARY | 2025-02-12 06:04 | XMS_ITS | Encounter Summary ---
Author Organization [facility] Address [address] [place] [address] Care Team Providers Care Family Practice Doctor Name Role Phone Kassie Reyna MD Primary Care Provider +1- [phone] Encounter Details Date Type Department Care Team (Late st Contact Info) Description 06/28/2021 Abstract [facility] [address] [facility] [address] [facility] [address] [place] [address] Maritza Plascencia Social History Tobacco Use Types Packs/Day Years [...] Time PHQ-9 Depression Total Score: 0 03/08/20 21 3:00 PM EDT documented as of this encounter Care Teams Family Practice Doctor Relationship Specialty Start Date End Date Kassie Reyna MD [address] [phone] PCP - General Internal Medicine 07/29/22 documented as of this encounter
[2025-02-12 06:09] LABS: Platelet Count 96 X10*3/uL (160-400)
--- NOTE | 2025-02-12 06:09 | ED.GENADULT ---
HPI - General Adult General Chief complaint: Allergic Reaction Stated complaint: allergic reaction Time Seen by Provider: 02/12/25 05:12 History of Present Illness ED Provider: Tresa FIGUEROA narrative: The patient is a 39-year-old woman with a history of end-stage kidney disease on dialysis. She normally gets her dialysis on Tuesdays, , and Saturdays. The patient says that she has required several revisions of her dialysis shunts in her left arm in the last several months. I believe this was done primarily at a [facility] a few months ago. Over the last 2 months she has been hospitalized multiple times at [facility] and at [facility] for a variety of complaints. Most recently she was hospitalized at this hospital, discharged 2 days ago on February 10. The patient states that she was experiencing allergic symptoms at the time that she was leaving the hospital. She says she has multiple allergies including multiple drug allergies. She says that she tried to manage her allergic symptoms at home with home remedies since leaving the hospital. This morning she says that her family thought that she was going to have a seizure and they drove her to the hospital here. She is complaining of severe chronic pain in her left arm and in her chest. Related Data Home Medications ?Medication ?Instructions ?Recorded ?Confirmed carvedilol 25 mg tablet 25 mg PO BID 12/30/24 02/08/25 cholecalciferol (vitamin D3) 50 50 mcg PO DAILY 12/30/24 02/08/25 mcg (2,000 unit) tablet (Vitamin D3) pantoprazole 40 mg tablet,delayed 40 mg PO DAILY@0630 12/30/24 02/08/25 release levetiracetam 250 mg tablet 250 mg PO TUTHSA 01/06/25 02/08/25 levetiracetam 500 mg tablet 500 mg PO DAILY 01/06/25 02/08/25 nifedipine 30 mg tablet,extended 30 mg PO DAILY 01/06/25 02/08/25 release 24 hr sildenafil (pulm.hypertension) 20 20 mg PO TID 01/06/25 02/08/25 mg tablet albuterol sulfate 90 mcg/actuation 2 puff inhalation Q6H PRN 02/08/25 02/08/25 aerosol inhaler Shortness Of Breath Or Wheezing cephalexin 250 mg capsule 250 mg PO DAILY 02/08/25 02/08/25 nifedipine 60 mg tablet,extended 60 mg PO BEDTIME 02/08/25 02/08/25 release 24 hr Previous Rx's ?Medication ?Instructions ?Recorded oxycodone 15 mg tablet 15 mg PO Q4H PRN Breakthrough Pain 02/10/25 #20 tabs Allergies Allergy/AdvReac Type Severity Reaction Status Date / Time ANNA Inhibitors Allergy Unknown Verified 02/12/25 05:09 adhesive tape Allergy Unknown Verified 02/12/25 05:09 amlodipine Allergy Unknown Verified 02/12/25 05:09 angiotensin II acetate, human Allergy Itching Verified 02/12/25 05:09 Beta-Blockers Allergy Itching Verified 02/12/25 05:09 (Beta-Adrenergic Bloc cinacalcet (From Sensipar) Allergy Unknown Verified 02/12/25 05:09 clonidine Allergy Anaphylaxis Verified 02/12/25 05:09 doxazosin Allergy Anaphylaxis Verified 02/12/25 05:09 epoetin michael-epbx (From Allergy Unknown Verified 02/12/25 05:09 Retacrit) epoetin beta Allergy Unknown Verified 02/12/25 05:09 furosemide Allergy Unknown Verified 02/12/25 05:09 gabapentin Allergy Anaphylaxis Verified 02/12/25 05:09 heparin Allergy Unknown Verified 02/12/25 05:09 hydralazine Allergy Anaphylaxis Verified 02/12/25 05:09 hydroxyzine Allergy Unknown Verified 02/12/25 05:09 ibuprofen (From Motrin) Allergy Unknown Verified 02/12/25 05:09 isosorbide Allergy Unknown Verified 02/12/25 05:09 labetalol Allergy Eye Verified 02/12/25 05:09 Swelling latex Allergy Itching Verified 02/12/25 05:09 levofloxacin Allergy Itching Verified 02/12/25 05:09 lisinopril Allergy Itching Verified 02/12/25 05:09 losartan Allergy Unknown Verified 02/12/25 05:09 methocarbamol Allergy Unknown Verified 02/12/25 05:09 metoprolol Allergy Unknown Verified 02/12/25 05:09 Penicillins Allergy Hives Verified 02/12/25 05:09 prednisone Allergy Unknown Verified 02/12/25 05:09 spironolactone Allergy Itching Verified 02/12/25 05:09 tramadol Allergy Unknown Verified 02/12/25 05:09 valsartan Allergy Facial Verified 02/12/25 05:21 Swelling diphenhydramine (From AdvReac Unknown Verified 02/12/25 05:09 Benadryl) dye in bendaryl pills AdvReac Itching Uncoded 02/12/25 05:59 Review of Systems Review of Systems: Yes all other systems are reviewed and are negative [facility] Past Medical History Medical History Chronic hypoxic respiratory failure Seizure disorder ESRD (end stage renal disease) on dialysis Social History Social History Household Members: Family and Children Housing: House Do you presently have visiting nurse or other home services: No Patient Tobacco Use Status: Never used Tobacco Smoked in Last 30 Days: No Use of substances other than those prescribed or required for medical reasons: No Advance Directives: No Advance Directives Information Provided: No Do you have a plan to hurt others: No Plan Patient : No service: No Physical Exam ED Vital Signs: Vital Signs - 24 hr 02/12/25 04:57 02/12/25 07:39 02/12/25 08:29 Temperature 98.1 F Pulse Rate 85 76 78 Respiratory Rate 16 11 L 18 Blood Pressure 181/93 H 206/98 H Pulse Oximetry 100 95 Oxygen Delivery Method Room Air Room Air Oxygen Flow Rate 02/12/25 09:05 02/12/25 09:40 02/12/25 10:00 Temperature Pulse Rate 85 78 Respiratory Rate 18 Blood Pressure 206/98 H 225/102 H 191/103 H Pulse Oximetry 96 Oxygen Delivery Method Nasal Cannula Oxygen Flow Rate 2 02/12/25 10:22 02/12/25 11:22 02/12/25 11:23 Temperature 0 F L Pulse Rate 78 78 78 Respiratory Rate 18 18 18 Blood Pressure 207/85 H 207/97 H 207/97 H Pulse Oximetry 94 93 93 Oxygen Delivery Method Nasal Cannula Room Air Room Air Oxygen Flow Rate 2 BMI result Body Mass Index 23.6 Const Other: The patient is awake and alert, pleasant and cooperative. She does not appear in any overt distress. She has very abnormal appearance to the left arm because of a large dialysis catheter but otherwise she does not look acutely ill or in distress in any way. HENMT Other: Face is symmetrical. The patient states that her face is puffy compared to her baseline but I did not appreciate any objective findings of edema in the face. Mucous membranes are moist. Airway is clear. Eyes Other: Pupils are round equal, conjunctivae are clear, extraocular movements intact General: appearance normal, both eyes and all related structures Neck Other: I do not appreciate any swelling of the neck. There was no stridor. Neck: Yes normal visual inspection, Yes full ROM and Yes no JVD Resp Other: No increased work of breathing. Occasional scattered wheezes. Breath sounds were symmetrical. Cardio Rate: regular rate Rhythm: regular rhythm Heart sounds: S1 normal heart sound present and S2 normal heart sound present GI Other: Abdomen soft and non-tender. 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 Neuro Other: The patient is awake and alert with a normal mental status. Cranial nerves are intact. She has normal strength and sensation in her extremities. She seems grossly neurologically intact. Extrem Other: There is no calf swelling or tenderness. No asymmetry. No peripheral edema. Medications Administered Discontinued Medications Generic Name Dose Route Start Last Admin Trade Name Freq PRN Reason Stop Dose Admin Albuterol/Ipratropium 3 ml 02/12/25 07:24 02/12/25 07:38 Albuterol/Iprat 2.5/0.5mg 3 Ml Ampul.Neb INHALE 02/12/25 07:25 3 ml ONCE ONE Administration Carvedilol 25 mg 02/12/25 08:38 02/12/25 09:05 Carvedilol 25 Mg Tablet PO 02/12/25 08:39 25 mg ONCE ONE Administration Protocol Diphenhydramine HCl 25 mg 02/12/25 06:05 02/12/25 06:17 Diphenhydramine Hcl 50 Mg/Ml Vial IVPUSH 02/12/25 06:06 25 mg ONCE ONE Administration Diphenhydramine HCl 25 mg 02/12/25 08:11 02/12/25 08:25 Diphenhydramine Hcl 50 Mg/Ml Vial IVPUSH 02/12/25 08:12 25 mg ONCE ONE Administration Hydromorphone HCl 1 mg 02/12/25 05:17 02/12/25 05:51 Hydromorphone Hcl 1 Mg/Ml Syringe IVPUSH 02/12/25 05:18 1 mg ONCE ONE Administration Protocol Hydromorphone HCl 1 mg 02/12/25 07:10 02/12/25 07:17 Hydromorphone Hcl 1 Mg/Ml Syringe IVPUSH 02/12/25 07:11 1 mg ONCE ONE Administration Protocol Hydromorphone HCl 1 mg 02/12/25 10:24 02/12/25 10:30 Hydromorphone Hcl 1 Mg/Ml Syringe IVPUSH 02/12/25 10:25 1 mg ONCE ONE Administration Protocol Levetiracetam 500 mg 02/12/25 08:38 02/12/25 09:06 Levetiracetam 500 Mg Tablet PO 02/12/25 08:39 500 mg ONCE ONE Administration Nifedipine 30 mg 02/12/25 08:38 02/12/25 09:40 Nifedipine Er 30 Mg Tab.Er.24 PO 02/12/25 08:39 30 mg ONCE ONE Administration Protocol Medical Decision Making Medical Decision Making [facility] Narrative: The patient is a 39-year-old female with a history of renal failure as a result of eclampsia. She has been on dialysis for many years. She presents to the emergency room by private vehicle complaining of what she describes as symptoms of a generalized allergic reaction. Her description of her symptoms is very vague and rambling. She does not appear clinically to be showing objective findings of an allergic reaction. She also complains of a great deal of pain which I believe is mostly chronic pain. She was requesting pain medication. She looks obviously chronically ill but it was not apparent that she was obviously acutely ill. I reviewed her old records at this hospital and also her old records at [facility]. The patient has been admitted to this hospital 3 times in the last 6 weeks. She has also been admitted to the hospital at [facility] multiple additional times over the last months of the summer. I think she has had at least 9 hospitalizations between [facility] and [facility] since December 01. Her complaints today seems similar to complaints on previous hospitalizations. My overall suspicion for an acutely dangerous process is very low. Today is Friday. She has a Friday, , Friday dialysis patient. She was given IV hydromorphone for her complaints of pain and IV diphenhydramine for her complaints of allergic symptoms. However ultimately I explained her I was not finding any definite significant acute change from her baseline that would require hospitalization. She is anemic, her hemoglobin today is 7.4, however this is not significantly different from recent values. I do not think she is acutely bleeding. Her potassium is 5.8. My overall impression is that what she requires most today is her usual dialysis. The patient was very reluctant to be discharged to go to her scheduled dialysis this morning. She asked me to have a instrument/control technician see your in the emergency room. She also asked me to have a lock maintenance supervisor see her in the emergency room. When I explained I did not feel there was an indication for these consults but that my recommendation was for her to go to dialysis she then asked for the nursing supervisor blast furnace. Ultimately I maintained my conclusion that she should go to her dialysis today. A taxi was arranged to get her there and so she was discharged to go by taxi to her dialysis this morning. She says that she has a new doctor's appointment next week. Lab Data 02/12/25 05:50 02/12/25 05:50 Labs: Lab Results 02/12/25 Range/Units 05:50 WBC 5.7 (4.8-10.8) X10*3/uL RBC 2.27 L (4.20-5.50) X10*6/uL Hgb 7.0 L* (12.0-16.0) g/dl Hct 21.3 L (37.0-47.0) % MCV 93.8 (80.0-98.0) fL MCH 30.8 (27.0-33.0) pg MCHC 32.9 (31.0-35.0) g/dl RDW 14.3 (11.0-16.0) % Plt Count 96 L (160-400) X10*3/uL MPV 10.0 (9.4-12.3) fL Immature Gran % (Auto) 0.5 H (0.0-0.4) % Neut % (Auto) 78.2 H (45-73) % Lymph % (Auto) 8.3 L (20-40) % [place] % (Auto) 7.9 (2-11) % Eos % (Auto) 4.6 H (0-4) % Baso % (Auto) 0.5 (0-2) % Lymph # (Auto) 0.5 L (1.2-4.9) X10*3/uL [place] # (Auto) 0.5 (0.1-1.2) X10*3/uL Eos # (Auto) 0.3 (0.0-0.4) X10*3/uL Baso # (Auto) 0.0 (0.0-0.2) X10*3/uL Abs Immat Gran (auto) 0.03 (0.00-0.03) X10*3/uL Absolute Neuts (auto) 4.4 (2.0-8.3) x10*3/uL Absolute Nucleated RBC 0.000 (0.0-0.012) X10*3/uL Nucleated RBC % (auto) 0.0 (0.0-0.2) /100WBC Sodium 141 (135-145) mmol/L Potassium 5.8 H (3.3-5.1) mmol/L Chloride 99 (96-108) mmol/L Carbon Dioxide 26 (22-29) mmol/L Anion Gap 22 H (12-20) BUN 66 H (9-16) mg/dL Creatinine 9.80 H* (0.5-1.4) mg/dL Estim Creat Clear Calc 7.0 Estimated GFR 4 Random Glucose 134 H (60-115) mg/dL Calcium 7.2 L (8.4-10.2) mg/dL Total Bilirubin 0.5 (0.0-1.0) mg/dL Direct Bilirubin 0.2 (0.0-0.5) mg/dL AST 21 (5-31) U/L ALT 24 (0-31) U/L Alkaline Phosphatase 120 H (39-117) U/L Troponin I High Sens 27.4 H (<3.5-17.0) ng/L B-Natriuretic Peptide 3852 H (<100) pg/mL Total Protein 7.7 (6.5-8.0) g/dL Albumin 4.3 (3.5-5.0) g/dL Lipase 14 (8-78) U/L Hold Yellow Top See Note Influenza Type A (PCR) NEGATIVE (Negative) Influenza Type B (PCR) NEGATIVE (Negative) RSV RNA Qual (PCR) NEGATIVE (Negative) SARS-CoV-2 RNA (RT-PCR) NEGATIVE (Negative) Discharge Plan Discharge Clinical Impression: Chest pain, ESRD (end stage renal disease) on dialysis Patient Disposition: Home, Self-Care Additional Instructions: I do not find an indication for hospitalization today. Please follow through with dialysis today and continue all of your regular medications. Please follow-up with your regular doctors next week. Return to the emergency room if significantly worse. Prescriptions: No Action carvedilol 25 mg tablet 25 mg PO BID pantoprazole 40 mg tablet,delayed release (DR/EC) 40 mg PO DAILY@0630 cholecalciferol (vitamin D3) [Vitamin D3] 50 mcg (2,000 unit) tablet 50 mcg PO DAILY cephalexin 250 mg capsule 250 mg PO DAILY nifedipine 60 mg tablet extended release 24hr 60 mg PO BEDTIME albuterol sulfate 90 mcg/actuation HFA aerosol inhaler 2 puff inhalation Q6H PRN (Reason: Shortness Of Breath Or Wheezing) oxycodone 15 mg Tablet 15 mg PO Q4H PRN (Reason: Breakthrough Pain) Qty: 20 0RF Rx Instructions: Partial Fill upon patient request. sildenafil (pulm.hypertension) 20 mg tablet 20 mg PO TID nifedipine 30 mg tablet extended release 24hr 30 mg PO DAILY levetiracetam 500 mg tablet 500 mg PO DAILY levetiracetam 250 mg tablet 250 mg PO TUTHSA Referrals: [facility] [Provider Group] Kassie Reyna MD [Primary Care Provider, Internal Medicine] Interventions: ED Discharge Assessment Last Done: 02/12/25 11:23 Discharge Date/Time: 02/12/25 11:35 Print Language: Romansh
[2025-02-12 06:12] LABS: Hemoglobin 7.0 g/dl (12.0-16.0)
[2025-02-12 06:22] LABS: B Type Natriuretic Peptide 3852 pg/mL (<100)
[2025-02-12 06:25] LABS: Troponin-I High Sensitivity 27.4 ng/L (<3.5-17.0)
[2025-02-12 06:27] LABS: Alanine Aminotransferase 24 U/L (0-31); Albumin Level 4.3 g/dL (3.5-5.0); Alkaline Phosphatase 120 U/L (39-117); Anion Gap 22 (12-20); Aspartate Amino Transferase 21 U/L (5-31); Blood Urea Nitrogen 66 mg/dL (9-16); Calcium 7.2 mg/dL (8.4-10.2); Carbon Dioxide 26 mmol/L (22-29); Chloride 99 mmol/L (96-108); Creatinine Clr Calc Pharmacy 7.0; Estimated Glomerular Filt Rate 4; Lipase 14 U/L (8-78); Potassium 5.8 mmol/L (3.3-5.1); Sodium 141 mmol/L (135-145); Total Protein 7.7 g/dL (6.5-8.0)
[2025-02-12 06:38] LABS: Resp Syncy Virus RNA Qual PCR NEGATIVE (Negative); SARS COV2 PCR INHOUSE NEGATIVE (Negative)
--- NOTE | 2025-02-12 07:19 | PC.NURSE ---
at bedside for cardiac u/s, dilaudid given as ordered,pt states giving dliaudid diluted doesn't work well for her, I tried to explain why we would dilute but pt would not allow me to finish my sentence
[2025-02-12] MEDS: Albuterol/Iprat 2.5/0.5MG 3 ML AMPUL.NEB INHALE (07:38)
[2025-02-12] MEDS: NIFEdipine ER 30 MG TAB.ER.24 PO (09:40)
--- NOTE | 2025-02-12 09:43 | PC.NURSE ---
pt medicated as ordered, pt unhappy with discharge plan, vented to this rn that she felt that she should not be discharged and asked to speak with the nursing supervisor pairing and inspecting, pt concerned about having continued pain all over and also her bp. RN Pest Control Specialist to bedside at this time and speaking with the pt
--- NOTE | 2025-02-12 09:56 | PC.NURSE ---
went in to discharge pt and pt asked for privacy as she is on an important phone call , will go back in when off the phone
--- NOTE | 2025-02-12 10:10 | PC.NURSE ---
pt previously stated that she had a ride to dialysis but now states that she needs an ambulance to get there. states she goes to [facility] at [address] [place] [address] [place]. call placed and they report treatment time of 1150. I informed them that we were working on ambulance transport to get her there. pt requires oxygen but came here without oxygen
--- NOTE | 2025-02-12 11:16 | PC.NURSE ---
I was called by nursing and ED provider to speak with patient this AM as she was disagreeing with plan for discharge to home to attend her dialysis appt today. I spoke with the patient for approximately 45 minutes. Pt expressed concerns that her physical issue was not being adequately addressed nor investigated. Patient expressed dissatisfaction with diagnostic findings and expressed concerns over lack of treatment for her continued chronic health issues and was requesting admission to the hospital to receive inpatient dialysis. Provider stated to me that patient does not require hospital admission at this time as her diagnostics were stable, In addition she was receiving BP med at that exact time to treat her hypertension. Provider and RN aware of BP and were actively treating. Patient aware that she needs to attend her dialysis appointment and expresses that she will return to the ED if symptoms worsen. Pt provided a ride to her dialysis appointment.
== END 2025-02-12 11:35 | disposition home or self-care (01) ==
PROVIDERS: Emergency Medicine; Emergency Provider Emergency Medicine; PCP Internal Medicine
DX: R07.9 Chest pain, unspecified (principal); N18.6 End stage renal disease; Z99.2 Dependence on renal dialysis; Z03.818 Encounter for observation for suspected exposure to other biological agents ruled out
CPT/HCPCS: 36415; 71045; 80048; 80076; 83690; 83880; 84484; 85025; 87637; 93005; 94640; 96374; 96375; 96376; 99285; J1171; J1200

== ENCOUNTER → 2025-02-12 05:18 | Outpatient (BNV) | payer MEDICARE, MEDICAID, SELFPAY | PROVIDERS: Emergency Provider Emergency Medicine; PCP Internal Medicine; Visit Provider Internal Medicine Cardiovascular Disease | DX: R06.02 Shortness of breath (principal) | CPT/HCPCS: 93010 ==

== ENCOUNTER → 2025-02-12 05:19 | Outpatient (BNV) | payer MEDICARE, MEDICAID, SELFPAY | PROVIDERS: Emergency Provider Emergency Medicine; PCP Internal Medicine; Visit Provider Radiology Vascular & Interventional Radiology | DX: R91.8 Other nonspecific abnormal finding of lung field (principal) | CPT/HCPCS: 71045 ==

== ENCOUNTER 2025-04-18 09:37 | Outpatient (AMB) | payer MEDICARE, MEDICAID, SELFPAY ==
--- NOTE | 2025-04-18 09:57 | MHC.PC.OV ---
Vital Signs 04/18/25 10:01 04/18/25 10:55 Height 5 ft 4.5 in Weight 138 lb 4 oz BMI 23.4 BP 150/86 H 146/72 H Blood Pressure Location Rt brachial Position Sitting Respiration 16 Pulse 76 Pulse Source Pulse Oximeter Temp 97.1 F Temp Source Temporal Artery Scan Pulse Oximetry (%) 96 Oxygen Delivery Method Room Air Intake Visit Reasons: Routine, reestablish care Rate Manager Required: No Accompanied by: Self / Same As Patient Allergies ANNA Inhibitors Allergy (Verified 04/18/25 09:59) Unknown adhesive tape Allergy (Verified 04/18/25 09:59) Unknown amlodipine Allergy (Verified 04/18/25 09:59) Unknown angiotensin II acetate, human Allergy (Verified 04/18/25 09:59) Itching Beta-Blockers (Beta-Adrenergic Bloc Allergy (Verified 04/18/25 09:59) Itching cinacalcet (From Sensipar) Allergy (Verified 04/18/25 09:59) Unknown clonidine Allergy (Verified 04/18/25 09:59) Anaphylaxis doxazosin Allergy (Verified 04/18/25 09:59) Anaphylaxis epoetin michael-epbx (From Retacrit) Allergy (Verified 04/18/25 09:59) Unknown epoetin beta Allergy (Verified 04/18/25 09:59) Unknown furosemide Allergy (Verified 04/18/25 09:59) Unknown gabapentin Allergy (Verified 04/18/25 09:59) Anaphylaxis heparin Allergy (Verified 04/18/25 09:59) Unknown hydralazine Allergy (Verified 04/18/25 09:59) Anaphylaxis hydroxyzine Allergy (Verified 04/18/25 09:59) Unknown ibuprofen (From Motrin) Allergy (Verified 04/18/25 09:59) Unknown isosorbide Allergy (Verified 04/18/25 09:59) Unknown labetalol Allergy (Verified 04/18/25 09:59) Eye Swelling latex Allergy (Verified 04/18/25 09:59) Itching levofloxacin Allergy (Verified 04/18/25 09:59) Itching lisinopril Allergy (Verified 04/18/25 09:59) Itching losartan Allergy (Verified 04/18/25 09:59) Unknown methocarbamol Allergy (Verified 04/18/25 09:59) Unknown metoprolol Allergy (Verified 04/18/25 09:59) Unknown Penicillins Allergy (Verified 04/18/25 09:59) Hives prednisone Allergy (Verified 04/18/25 09:59) Unknown spironolactone Allergy (Verified 04/18/25 09:59) Itching tramadol Allergy (Verified 04/18/25 09:59) Unknown valsartan Allergy (Verified 04/18/25 09:59) Facial Swelling diphenhydramine (From Benadryl) Adverse Reaction (Verified 04/18/25 09:59) Unknown dye in bendaryl pills Adverse Reaction (Uncoded 02/12/25 05:59) Itching Medication List - Last Reconciled 04/18/25 by Kassie Reyna MD albuterol sulfate 90 mcg/actuation 2 puffs inhalation Q6H PRN budesonide 0.25 mg inhalation BID PRN carvedilol 25 mg PO BID cephalexin 250 mg PO DAILY cholecalciferol (vitamin D3) (Vitamin D3) 50 mcg PO DAILY ferric citrate (Auryxia) PO formoterol fumarate 2 mL inhalation BID PRN levetiracetam 500 mg PO DAILY levetiracetam 250 mg PO TUTHSA minoxidil 7.5 mg PO DAILY nifedipine ER 30 mg PO DAILY nifedipine ER 60 mg PO BEDTIME oxycodone 15 mg PO Q4H PRN pantoprazole 40 mg PO DAILY@0630 sildenafil (pulm.hypertension) 20 mg PO TID Tobacco use date assessed: 04/18/25 Dental Screening Dental Screen Date: 04/18/25 Did you have a dental visit in the last 12 months?: Yes Did you have a dental problem in the last 6 months where you did not have access to dental care?: No HPI HPI Comments History of Present Illness Details The patient is a 39-year-old female presenting to re-community health care and for management of multiple complex chronic medical issues. End-Stage Renal Disease: The patient has been on dialysis for 11.5 years and currently receives treatment on Tuesdays, , and Saturdays, though she is seeking to change to a morning schedule. She experiences significant post-dialysis pruritus, described as an itch burning, which she manages with showers and coconut cream. She is scheduled for a kidney transplant evaluation in [place], [place], on the 25th of the month. Vascular Access Complications: The patient has a history of recurrent vascular access complications, including multiple port infections. A port placed approximately one month ago became infected quickly and required removal. Within the last three months, she has undergone approximately eight procedures, including three revisions/recanalizations and placement of three catheters, with procedures performed at [place], [facility] and [place]. Cardiovascular Disease: The patient has a history of pericardial effusion, pulmonary hypertension, tricuspid regurgitation, diastolic CHF. She currently reports frequent episdes of chest pain. Was at [facility] over the weekend, will obtain records. She also has a history of hypertension. She is also being treated for pulmonary hypertension with sildenafil, which was prescribed by specialist at [facility]. An echocardiogram has not been performed recently, but one is scheduled during her transplant evaluation. Seizure Disorder: The patient has a seizure disorder and is very adherent to her Keppra, stating she would have a seizure if she did not take it. Chronic Myofascial Pain/lumbar pain: The patient experiences chronic pain and is on a pain contract. Has been evaluated by pain management inpatient services during several [facility] hospitalization. Recurrent Infections: The patient has a history of recurrent infections. Three weeks ago, she presented multiple times to the hospital with symptoms of chest pain, difficulty breathing, and nasal discomfort and was eventually diagnosed with a severe sinus infection after producing purulent mucus balls from her nose and throat. She was treated with cephalexin. Dental Issues: The patient reports major dental problems, including painful shifting of her teeth and receding gums. She was previously seeing a [facility] dentist but her care was discontinued due to payment issues between the provider and [facility]. She plans to seek an appointment with a different dental group. Surgical History: - Multiple vascular access procedures including numerous port placements and removals. Social History: - She reports having a great, supportive family, including her mother, father, and brother. 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 - She previously had 49 hours/week, and there is a pending request to increase this to 64 hours/week to include nights and weekends - Exercise: Patient reports she exercises when she can and considers herself active. Diagnostic Results: - Vital Signs: Repeat blood pressure in office was 146/72 mmHg. - Imaging: An echocardiogram is planned for the patient's upcoming transplant evaluation on the the . PFSH Medical History (Updated 04/18/25 @ 12:39 by Kassie Reyna MD) Myofascial pain Diastolic CHF Tricuspid regurgitation Recurrent chest pain Pericardial effusion Pulmonary hypertension Iron deficiency anemia ESRD on hemodialysis Chest pain Chronic hypoxic respiratory failure Seizure disorder ESRD (end stage renal disease) on dialysis Family History (Updated 04/18/25 @ 10:34 by Kassie Reyna MD) Other Diabetes mellitus Primary hypertension Social History Household Members: Family and Children Housing: House Do you presently have visiting nurse or other home services: No Patient Tobacco Use Status: Never used Tobacco e-Cigarette/Vaping Use: Never Used service: No Current occupational status: unemployed Questionnaire Thrive Questionnaire Date Thrive assessed: 02/08/25 AUDIT C Alcohol Use Questionnaire (AUDIT-C) 1. How often do you have a drink containing alcohol?: Never 3. How often do you have six or more drinks on one occasion?: Never Total Score: 0 Review of Systems Narrative Review of Systems - Constitutional: Reports feeling mentally drained and hypervigilant. - HEENT: per hpi - Reports dental pain, tooth movement, and painful gums. - Cardiovascular: Reports recent onset of significant chest pain. - Respiratory: Denies cough. - Neurological: Denies current seizure activity. - Psychiatric: Reports sleep disturbance and hypervigilance, stating she feels like she is in a hospital even when at home. Physical exam (Primary Care) Vital Signs: Last Vital Signs Temp 97.1 F 04/18/25 10:01 Pulse 76 04/18/25 10:01 Resp 16 04/18/25 10:01 BP 146/72 H 04/18/25 10:55 Pulse Ox 96 04/18/25 10:01 Oxygen Delivery Method Room Air 04/18/25 10:01 BMI result Body Mass Index 23.4 Tobacco/Smoking Status: Tobacco use Status Tobacco use date assessed 04/18/25 04/18/25 10:12 Patient Tobacco Use Status Never used Tobacco 04/18/25 10:12 e-Cigarette/Vaping Use Never Used 04/18/25 10:12 Thrive Assessment: Date of Thrive Assessment Date Thrive assessed 02/08/25 04/18/25 10:12 Narrative Physical Exam -Gen: NAD - Constitutional: Patient is well-appearing. - Cardiovascular: Regular rhythm. grade III/ murmur - Pulmonary: Lungs are clear to auscultation bilaterally. - Abdomen: Non-tender to palpation, normoactive bowel sounds Coding Level of Care Code Est Pt Level 4 (14924) Complex EM visit Add On G2211 Diagnoses Seizure disorder G40.909 ESRD on hemodialysis N18.6; Z99.2 Pulmonary hypertension I27.20 Myofascial pain M79.18 Assessment & Plan Assessment & Plan (1) Seizure disorder: Code(s): G40.909 - Epilepsy, unspecified, not intractable, without status epilepticus Category: Medical (2) ESRD on hemodialysis: Code(s): N18.6 - End stage renal disease; Z99.2 - Dependence on renal dialysis Category: Medical (3) Pulmonary hypertension: Code(s): I27.20 - Pulmonary hypertension, unspecified Category: Medical (4) Myofascial pain: Code(s): M79.18 - Myalgia, other site Category: Medical Plan Assessment and Plan 1. Re-establishment of Care and Care Coordination - The patient is re-establishing primary care to manage her multiple complex chronic conditions. - The plan is to facilitate coordinated care among her specialists. - A referral will be placed to Dr. Vila for local nephrology management. - A referral will be placed to [facility] for local cardiovascular care. - The patient will continue to see her specialists at [facility] for advanced vascular and pulmonology care. - She has a kidney transplant evaluation scheduled in [place], [place]. 2. End-Stage Renal Disease on Dialysis - The patient will continue hemodialysis. - Baseline labs will be ordered today to assess her current metabolic status. - Her post-dialysis pruritus is noted. 3. Cardiovascular Disease (Cardiomyopathy, Hypertension, Pulmonary Hypertension, diastolic CHF, tricuspid regurgitation) - A referral to [facility] will be placed. - An echocardiogram is needed for evaluation, however, patient notes she will be getting one done at her transplant evaluation next week. 4. Respiratory Disorder/Asthma - The patient will follow up with cotton presser Dr. Morel at [facility] 5. Seizure Disorder - The patient is stable and adherent with her Keppra. - She will continue her current regimen. 6. Chronic Pain Management - The patient's complex pain was discussed. - She has signed a new pain management contract for this practice. - Ongoing management of her chronic pain medication will be provided. 7. Dental Disease - The patient's significant dental pain, shifting teeth, and gum recession are noted as concerns, likely exacerbated by metabolic issues related to her ESRD. - She will be encouraged to establish care with a local dentist that accepts her insurance as soon as possible. 8. Need for Increased [employer] Services - The patient has a clear need for increased home support due to her frequent hospitalizations and functional limitations. 9. Mental Health Support - The patient is experiencing significant emotional distress, hypervigilance, and sleep disturbance secondary to her chronic illnesses and difficult healthcare experiences. - A referral will be sent to the care navigation team to help her find a therapist covered by her insurance. Plan - Place referral to Dr. Vila for local nephrology management. - Place referral to [facility] for local cardiology evaluation. - Order baseline laboratory studies. - Patient signed pain management contract; will manage chronic pain regimen. - An echocardiogram is planned during the patient's transplant evaluation on the of the month. - Care navigation team to assist the patient in finding a therapist. Follow up in 2 months Discussion Notes I have discussed with the patient her complex medical history and the difficulties she has faced navigating the healthcare system. A pain management contract was reviewed and signed, establishing my role as the main prescriber for her chronic pain medications. Patient Instructions - Please go to the lab across the hallway to have your blood drawn and to provide a urine sample today. - A referral will be sent to Dr. Vila for your kidney care and to a risk control specialist (apprentice cook) at [facility]. - Continue taking your current medications - Remember to attend your kidney transplant evaluation on the , where they will also perform a heart ultrasound (echocardiogram). - If your dialysis schedule changes, please send us a message through the patient portal so we can change your appointment day if needed. Orders: Orders TSH reflex Free T4 Today D50.9 - Iron deficiency anemia, unspecified, G40.909 - Epilepsy, unspecified, not intractable, without status epilepticus, I27.20 - Pulmonary hypertension, unspecified, N18.6 - End stage renal disease, Z99.2 - Dependence on renal dialysis IRON PROFILE Today D50.9 - Iron deficiency anemia, unspecified, G40.909 - Epilepsy, unspecified, not intractable, without status epilepticus, I27.20 - Pulmonary hypertension, unspecified, N18.6 - End stage renal disease, Z99.2 - Dependence on renal dialysis Alcohol, Ethyl Urine Screen Today D50.9 - Iron deficiency anemia, unspecified, G40.909 - Epilepsy, unspecified, not intractable, without status epilepticus, I27.20 - Pulmonary hypertension, unspecified, N18.6 - End stage renal disease, Z99.2 - Dependence on renal dialysis Cannabinoid Screen Urine Today D50.9 - Iron deficiency anemia, unspecified, G40.909 - Epilepsy, unspecified, not intractable, without status epilepticus, I27.20 - Pulmonary hypertension, unspecified, N18.6 - End stage renal disease, Z99.2 - Dependence on renal dialysis Benzodiazepines Screen Urine Today D50.9 - Iron deficiency anemia, unspecified, G40.909 - Epilepsy, unspecified, not intractable, without status epilepticus, I27.20 - Pulmonary hypertension, unspecified, N18.6 - End stage renal disease, Z99.2 - Dependence on renal dialysis Complete Blood Count Auto Diff Today D50.9 - Iron deficiency anemia, unspecified, G40.909 - Epilepsy, unspecified, not intractable, without status epilepticus, I27.20 - Pulmonary hypertension, unspecified, N18.6 - End stage renal disease, Z99.2 - Dependence on renal dialysis Comprehensive Met. Panel Today D50.9 - Iron deficiency anemia, unspecified, G40.909 - Epilepsy, unspecified, not intractable, without status epilepticus, I27.20 - Pulmonary hypertension, unspecified, N18.6 - End stage renal disease, Z99.2 - Dependence on renal dialysis Ferritin Today D50.9 - Iron deficiency anemia, unspecified, G40.909 - Epilepsy, unspecified, not intractable, without status epilepticus, I27.20 - Pulmonary hypertension, unspecified, N18.6 - End stage renal disease, Z99.2 - Dependence on renal dialysis Cocaine Screen Urine Today D50.9 - Iron deficiency anemia, unspecified, G40.909 - Epilepsy, unspecified, not intractable, without status epilepticus, I27.20 - Pulmonary hypertension, unspecified, N18.6 - End stage renal disease, Z99.2 - Dependence on renal dialysis Opiate Screen Urine Today D50.9 - Iron deficiency anemia, unspecified, G40.909 - Epilepsy, unspecified, not intractable, without status epilepticus, I27.20 - Pulmonary hypertension, unspecified, N18.6 - End stage renal disease, Z99.2 - Dependence on renal dialysis Referrals Nephrology Referral N18.6 - End stage renal disease, Z99.2 - Dependence on renal dialysis Cardiology Referral I31.39 - Other pericardial effusion (noninflammatory), R07.9 - Chest pain, unspecified Medications: New budesonide 0.25 mg inhalation BID PRN 60 mL 3RF shortness of breath or wheezing Changed From carvedilol 25 mg PO BID To carvedilol 25 mg PO BID 180 tabs 2RF 90 days From levetiracetam 500 mg PO DAILY To levetiracetam 500 mg PO DAILY 90 tabs 2RF 90 days From levetiracetam 250 mg PO TUTHSA To levetiracetam 250 mg PO TUTHSA 39 tabs 3RF 90 days
[2025-04-18 10:01] VITALS: BP 150/86; PULSE 76; RESP 16; TEMP 36.2; O2SAT 96; BMI 23.4
[2025-04-18 10:55] VITALS: BP 146/72
--- OUTSIDE RECORDS SUMMARY | 2025-04-18 19:20 | XMS_ITS | Encounter Summary ---
Author Organization [facility] Address [address] [place] [id number] Phone Care Team Providers Care Pastoral Counselor Name Role Phone Kassie Reyna MD Primary Care Provider + Encounter Details Date Type Department Care Team (Late st Contact Info) Description 11/16/2024 Procedure Pass [facility] US [address] [place] [address] Social History Tobacco Use Types Packs/Day Years [...] on file documented as of this encounter Goals Goal Patient Goal Type Associated Problems Recent Progress Patient-Stated? Author Safety Care Plan Acute Care Plan No Italia Sheikh, MIKE Note: Safety Care Plan Objectives Provide Ms. [...] cell phone pictures and video calls like [employer] If patient is found to be recording [...] on filedocumented in this encounter Care Teams Pastoral Counselor Relationship Specialty Start Date End Date Kassie Reyna MD [address] [place] [address] PCP - General Internal Medicine 12/17/21 documented as of this encounter Additional Source Comments The information contained in this document represents components of the legal health record. It is not the complete legal health record.[facility]
--- OUTSIDE RECORDS SUMMARY | 2025-04-18 19:20 | XMS_ITS | Encounter Summary ---
Author Organization [facility] Address [address] [place] [address] Phone Care Team Providers Care Forensic Toxicologist Name Role Phone Kassie Reyna MD Primary Care Provider + Encounter Details Date Type Department Care Team (Late st Contact Info) Description 11/19/2024 Procedure Pass [facility] PERIOPERATIVE DEPT [address] [place] [address] Social History Tobacco Use Types [...] Care Plan Acute Care Plan No Italia Sheikh RN Note: Safety Care Plan Objectives Provide [...] cell phone pictures and video calls like [employer]. If patient is found to be recording [...] on filedocumented in this encounter Care Teams Forensic Toxicologist Relationship Specialty Start Date End Date Kassie Reyna MD [address] [place] [address] PCP - General Internal Medicine 12/17/21 documented as of this encounter Additional Source Comments The information contained in this document represents components of the legal health record. It is not the complete legal health record.[facility]
--- OUTSIDE RECORDS SUMMARY | 2025-04-18 19:21 | XMS_ITS | Encounter Summary ---
Author Organization [facility] Address [address] [place] [address] Phone Care Team Providers Care Labor Service Representative Name Role Phone Kassie Reyna MD Primary Care Provider + Encounter Details Date Type Department Care Team (Late st Contact Info) Description 11/15/2024 Procedure Pass [facility] [employer] [address] [facility], [address], [address] [place] [address] Social History Tobacco Use Types [...] cell phone pictures and video calls like [employer]. If patient is found to be recording [...] on filedocumented in this encounter Care Teams Labor Service Representative Relationship Specialty Start Date End Date Kassie Reyna MD [address] [place] [address] PCP - General Internal Medicine 12/17/21 documented as of this encounter Additional Source Comments The information contained in this document represents components of the legal health record. It is not the complete legal health record.[facility]
--- OUTSIDE RECORDS SUMMARY | 2025-04-18 19:21 | XMS_ITS | Encounter Summary ---
Author Organization [facility] Address [address] [place] [address] Phone Care Team Providers Care Rn Operating Room Name Role Phone Kassie Reyna MD Primary Care Provider + Encounter Details Date Type Department Care Team (Late st Contact Info) Description 11/16/[address], [address] [facility] Floor, [address] [place] [address] Social History Tobacco Use Types Packs/Day Years [...] cell phone pictures and video calls like [employer]. If patient is found to be recording [...] filedocumented in this encounter Care Teams Rn Operating Room Relationship Specialty Start Date End Date Kassie Reyna MD [address] [place] [address] PCP - General Internal Medicine 12/17/21 documented as of this encounter Additional Source Comments The information contained in this document represents components of the legal health record. It is not the complete legal health record.[facility]
--- OUTSIDE RECORDS SUMMARY | 2025-04-18 19:22 | XMS_ITS | Encounter Summary ---
Author Organization [facility] Address [address] [place] [address] Phone Care Team Providers Care Milking Machine Operator Name Role Phone Kassie Reyna MD Primary Care Provider + Encounter Details Date Type Department Care Team (Late st Contact Info) Description 11/16/[address] [facility], [address]nd Floor, [address] [place] [address] Social History Tobacco Use Types Packs/Day Years [...] multidisciplinary patient-medical team bedside meetings with Ms. Morirs to address her medical concerns in a [...] cell phone pictures and video calls like [employer]. If patient is found to be recording [...] on filedocumented in this encounter Care Teams Milking Machine Operator Relationship Specialty Start Date End Date Kassie Reyna MD [address] [place] [address] PCP - General Internal Medicine 12/17/21 documented as of this encounter Additional Source Comments The information contained in this document represents components of the legal health record. It is not the complete legal health record.[facility]
--- OUTSIDE RECORDS SUMMARY | 2025-04-18 19:22 | XMS_ITS | Clinical Summary ---
Author Organization [facility] Address [address] [place] [address] Phone Care Team Providers Care Sludge Control Attendant Name Role Phone Kassie Reyna MD Primary [...] while on anticoagulation. She has seen at [facility] in July 2024 by ENT for [...] Encounters Date Type Department Care Team Description 04/03/2025 Orders Only [facility] [address] [place] [address] Lita Clarke NP ESRD (end stage renal disease) on dialysis (Primary Dx) 02/02/2025 Telephone [facility] [address], [address], [address] [place] [address] Lita Nava RN 01/21/2025 Telephone [facility] [address], [address] [place] [address] Luz Martinez RN 01/18/2025 Telephone [facility] [address], [address] [place] [address] Luz Martinez, MIKE from Last 3 Months Social History Tobacco [...] 11/01/2024 9:00 PM EDT Plan of Treatment Health Maintenance Due Date Last Done Comments BLOOD PRESSURE 1986 DEPRESSION SCREENING 1998 HIV ONE-TIME SCREENING (18-65 YEARS) 2004 PAP SMEAR 2007 PNEUMOCOCCAL VACCINES (0-49 years) (2 of 2 - PCV) 10/18/2018 10/18/2017, 06/06/2015, 05/05/2015 INFLUENZA VACCINE (#1) 2024 , 04/09/2016, 05/05/2015 COVID-19 VACCINE (1 - 2024- season) 2025 Adult Td,Tdap Booster 03/04/2029 03/04/2019, 013 SMOKING STATUS SCREENING (Once After 26 Yrs) Completed 11/01/2024 HEPATITIS C SCREENING Completed 11/17/2024 , 11/15/2024, 11/15/2024, Additional history exists HEPATITIS A VACCINES Aged Out No long er eligible based on patient's age to complete this topic HIB VACCINES Aged Out No longer eligi ble based on patient's age to complete this topic IPV VACCINES Aged Out No longer eligi ble [...] cell phone pictures and video calls like [employer]. If patient is found to be recording [...] Procedure Name Priority Date/Time Associated Diagnosis Comments HEPATITIS C VIRAL LOAD, PCR Routine 11/17/2024 5:58 AM EDT from Last 3 Months or Most Recently Relevant to Health Maintenance Results * Hepatitis C viral load (PCR) (11/17/2024 5:58 AM EDT) HCV RNA PCR Not Detected Not Detected IU/mL [facility] Comment: (NOTE) Assay Range: 15-100,000,000 IU/ml In rare instances, there might be a 1.0 - 1.5 log increase measured viral load observed in individuals with genotype 3a and 4. Please refer any questions to the Molecular Diagnostics Lab at extension [id number]. This is a quantitative assay utilizing real-time [...] EDT 11/17/2024 6:15 AM EDT us Minh Womack MD LAB BLOOD BKR ORDERABLES Fi nal Result [facility] [address] [place] [address] from Last 3 Months or Most Recently Relevant to Health Maintenance Insurance MEDICARE PART A & B [facility] [place] MEDICARE PART A & B [facility] [place] MEDICARE PART A & B [place] [facility] [place] [facility] & B Member Subscriber Plan / Payer (Ef fective 2015-Present) Name:HIMA Morris Member ID:[id number] Relation to Subscriber:Self Name:HIMA Morris Subscriber ID:[id number] Payer ID:[id number] Group ID:Not on file Type:Medicare Address: [facility] [employer] [facility] [address] [place] [phone] [place] MED[place] PART A & [place] A & B Member Subscriber Plan / Payer (Ef fective 2015-Present) Name:HIMA Morris Member ID:[id number] Relation to Subscriber:Self Name:HIMA Morris Subscriber ID:[id number] Payer ID:[id number] Group ID:Not on file Type:Medicare Address: [facility] [employer] [facility] [address] [place] [address] [place] [phone] [facility] [place] MEDICARE PART A & B [facility] [place] MED[facility] A & [facility] [place] MED[facility] PART A & [facility] Advance Directives For more information, please contact: [phone] (9AM - 5PM [facility], Friday-Friday) * Full Code (Latest Code Status on File) Date Activated Date Inactivated Comments 11/01/2024 1:38 PM Question Answer Comments Code Status Confirmed With: Patient Care Teams Sludge Control Attendant Relationship Specialty Start Date End Date Kassie Reyna MD [address] [place] [address] PCP - General Internal Medicine 12/17/21 Additional Source Comments The information contained in this document represents components of the legal health record. It is not the complete legal health record.[facility]
--- OUTSIDE RECORDS SUMMARY | 2025-04-18 19:23 | XMS_ITS | Encounter Summary ---
Author Organization [facility] Address [address] [place] [address] Phone Care Team Providers Care Pillowcase Cleaner Name Role Phone Kassie Reyna MD Primary Care Provider + Encounter Details Date Type Department Care Team (Late st Contact Info) Description 11/09/2024 Procedure Pass [facility] Cardiac Parts Chaser [address], [address], [address] [place] [address] Social History Tobacco Use Types [...] on filedocumented in this encounter Care Teams Pillowcase Cleaner Relationship Specialty Start Date End Date Kassie Reyna MD [address] [place] [address] PCP - General Internal Medicine 12/17/21 documented as of this encounter Additional Source Comments The information contained in this document represents components of the legal health record. It is not the complete legal health record.[facility]
--- OUTSIDE RECORDS SUMMARY | 2025-04-18 19:23 | XMS_ITS | Encounter Summary ---
Author Organization [facility] Address [address] [place] [address] Phone Care Team Providers Care Floor And Wall Applier Liquid Name Role Phone Kassie Reyna MD Primary Care Provider + Encounter Details Date Type Department Care Team (Late st Contact Info) Description 11/11/2024 Procedure Pass [facility] [address] [place] [address] Social History Tobacco Use Types Packs/Day Years [...] on filedocumented in this encounter Care Teams Floor And Wall Applier Liquid Relationship Specialty Start Date End Date Kassie Reyna MD [address] [place] [address] PCP - General Internal Medicine 12/17/21 documented as of this encounter Additional Source Comments The information contained in this document represents components of the legal health record. It is not the complete legal health record.[facility]
--- OUTSIDE RECORDS SUMMARY | 2025-04-18 19:24 | XMS_ITS | Encounter Summary ---
Author Organization [facility] Address [address] [place] [address] Phone Care Team Providers Care Instructional Writer Name Role Phone Kassie Reyna MD Primary Care Provider + Encounter Details Date Type Department Care Team (Late st Contact Info) Description 11/03/2024 Procedure Pass [facility] Emergency Radiology, [address], [address] 1 [place] [address] Social History Tobacco Use Types Packs/Day Years [...] on filedocumented in this encounter Care Teams Instructional Writer Relationship Specialty Start Date End Date Kassie Reyna MD [address] [place] [address] PCP - General Internal Medicine 12/17/21 documented as of this encounter Additional Source Comments The information contained in this document represents components of the legal health record. It is not the complete legal health record.[facility]
--- OUTSIDE RECORDS SUMMARY | 2025-04-18 19:24 | XMS_ITS | Encounter Summary ---
Author Organization [facility] Address [address] [place] [address] Phone Care Team Providers Care Guitar Maker Hand Name Role Phone Kassie Reyna MD Primary Care Provider + Encounter Details Date Type Department Care Team (Late st Contact Info) Description 11/04/2024 Procedure Pass [facility] [address] [place] [address] Social History Tobacco Use Types Packs/Day Years [...] on filedocumented in this encounter Care Teams Guitar Maker Hand Relationship Specialty Start Date End Date Kassie Reyna MD [address] [place] [address] PCP - General Internal Medicine 12/17/21 documented as of this encounter Additional Source Comments The information contained in this document represents components of the legal health record. It is not the complete legal health record.[facility]
--- OUTSIDE RECORDS SUMMARY | 2025-04-18 19:24 | XMS_ITS | Encounter Summary ---
Author Organization [facility] Address [address] [place] [address] Phone Care Team Providers Care Staffing Coordinator Name Role Phone Kassie Reyna MD Primary Care Provider + Encounter Details Date Type Department Care Team (Late st Contact Info) Description 11/02/2024 Procedure Pass [facility] [address] [place] [address] Social History Tobacco Use Types Packs/Day Years [...] on filedocumented in this encounter Care Teams Staffing Coordinator Relationship Specialty Start Date End Date Kassie Reyna MD [address] [place] [address] PCP - General Internal Medicine 12/17/21 documented as of this encounter Additional Source Comments The information contained in this document represents components of the legal health record. It is not the complete legal health record.[facility]
--- OUTSIDE RECORDS SUMMARY | 2025-04-18 19:25 | XMS_ITS | Encounter Summary ---
Author Organization [facility] Address [address] [place] [address] Phone Care Team Providers Care Turnaround Engineer Name Role Phone Kassie Reyna MD Primary Care Provider + Encounter Details Date Type Department Care Team (Late st Contact Info) Description 11/03/2024 Procedure Pass [facility] Cardiac Skiver Sock Linings [address], [address] [place] [address] Social History Tobacco Use Types [...] on filedocumented in this encounter Care Teams Turnaround Engineer Relationship Specialty Start Date End Date Kassie Reyna MD [address] [place] [address] PCP - General Internal Medicine 12/17/21 documented as of this encounter Additional Source Comments The information contained in this document represents components of the legal health record. It is not the complete legal health record.[facility]
--- OUTSIDE RECORDS SUMMARY | 2025-04-18 19:25 | XMS_ITS | Encounter Summary ---
Author Organization [facility] Address [address] [place] [address] Phone Care Team Providers Care Range Examiner Name Role Phone Kassie Reyna MD Primary Care Provider + Encounter Details Date Type Department Care Team (Late st Contact Info) Description 11/01/2024 Procedure Pass [facility] - [place]IR [address] [facility] 2nd [place] [address] Social History Tobacco Use Types Packs/Day Years [...] is your housing situation today? I have orcio sing 11/01/2024 How many times have you [...] 2:14 AM EDT Daria Arechiga RN * [place] Suicide Severity Rating Scale (Screener/Recent Self-Report) Question Answer Date of Assessment Author 1. Wish to be (Past 1 Month) No 025 2:14 AM EDT Daria Arechiga, RN 2. Non-Specific Active Suici snow Thoughts (Past 1 Month) No 11/01/2024 2:14 AM EDT Adolfo Arechiga RN 6. Suicidal Behavior (Lifetime) No 5 2:14 AM EDT Daria Arechiga RN documented as of this encounter Plan of Treatment Not on file documented as of this encounter Visit Diagnoses Not on filedocumented in this encounter Care Teams Range Examiner Relationship Specialty Start Date End Date Kassie Reyna MD [address] [place] [address] PCP - General Internal Medicine 12/17/21 documented as of this encounter Additional Source Comments The information contained in this document represents components of the legal health record. It is not the complete legal health record.[facility]
--- OUTSIDE RECORDS SUMMARY | 2025-04-18 19:25 | XMS_ITS | Encounter Summary ---
Author Organization [facility] Address [address] [place] [address] Phone Care Team Providers Care General Production Laborer Name Role Phone Kassie Reyna MD Primary Care Provider + Encounter Details Date Type Department Care Team (Late st Contact Info) Description 11/01/2024 Procedure Pass [facility] Emergency Imaging, [address], [address] 1 [place] [address] Social History Tobacco Use Types Packs/Day Years [...] 2:14 AM EDT Daria Arechiga RN * [place] Suicide Severity Rating Scale (Screener/Recent Self-Report) Question [...] filedocumented in this encounter Care Teams General Production Laborer Relationship Specialty Start Date End Date Kassie Reyna MD [address] [place] [address] PCP - General Internal Medicine 12/17/21 documented as of this encounter Additional Source Comments The information contained in this document represents components of the legal health record. It is not the complete legal health record.[facility]
--- OUTSIDE RECORDS SUMMARY | 2025-04-18 19:26 | XMS_ITS | Encounter Summary ---
Author Organization [facility] Address [address] [place] [address] Phone Care Team Providers Care Yard Pipe Grader Name Role Phone Kassie Reyna MD Primary Care Provider + Encounter Details Date Type Department Care Team (Late st Contact Info) Description 11/01/2024 Procedure Pass [facility] [place], [address], [address] [place] [address] Social History Tobacco Use Types Packs/Day Years [...] 2:14 AM EDT Daria Arechiga RN * [place] Suicide Severity Rating Scale (Screener/Recent Self-Report) Question [...] on filedocumented in this encounter Care Teams Yard Pipe Grader Relationship Specialty Start Date End Date Kassie Reyna MD [address] [place] [address] PCP - General Internal Medicine 12/17/21 documented as of this encounter Additional Source Comments The information contained in this document represents components of the legal health record. It is not the complete legal health record.[facility]
--- OUTSIDE RECORDS SUMMARY | 2025-04-18 19:26 | XMS_ITS | Encounter Summary ---
Author Organization [facility] Address [address] [place] [address] Phone Care Team Providers Care Sheet Heater Name Role Phone Kassie Reyna MD Primary Care Provider + Encounter Details Date Type Department Care Team (Late st Contact Info) Description 11/27/2024 Procedure Pass [facility] Imaging - RF/IR [address] [place] [address] Social History Tobacco Use Types Packs/Day Years [...] cell phone pictures and video calls like [employer]. If patient is found to be recording [...] on filedocumented in this encounter Care Teams Sheet Heater Relationship Specialty Start Date End Date Kassie Reyna MD [address] [place] [address] PCP - General Internal Medicine 12/17/21 documented as of this encounter Additional Source Comments The information contained in this document represents components of the legal health record. It is not the complete legal health record.[facility]
--- OUTSIDE RECORDS SUMMARY | 2025-04-18 19:27 | XMS_ITS | Clinical Summary ---
Author Organization [facility] Address [facility] [place] [address] Care Team Providers Care Insurance Executive Name Role Phone Donavon Aguirre MD Primary [...] PM EST) Hepatitis C Antibody Negative Negative [facility] Blood specimen (specimen) 06/12/2017 3:52 PM EST 06/12/2017 4:04 PM EST Narrative Resulting Agency Comment Spec In Lab Waldemar Nichols MD CHEMISTRY ORDERABLES Samira l Result [facility] [place] [address] * HIV Screen, 4th Generation (06/12/2017 3:52 PM EST) HIV Ab/Ag Screen Negative Negative [facility] Comment: This 4th Generation HIV [...] Nichols MD CHEMISTRY ORDERABLES Samira l Result [facility] [place] [address] from Last 3 Months or Most Recently Relevant to Health Maintenance Insurance MEDICARE Care Teams Insurance Executive Relationship Specialty Start Date End Date Donavon Aguirre MD PCP - General General Internal Medicine 06/06/17
== END 2025-04-18 10:55 | disposition home or self-care (01) ==
PROVIDERS: PCP Internal Medicine; Visit Provider Internal Medicine
DX: G40.909 Epilepsy, unspecified, not intractable, without status epilepticus (principal); N18.6 End stage renal disease; Z99.2 Dependence on renal dialysis; I27.20 Pulmonary hypertension, unspecified; M79.18 Myalgia, other site

== ENCOUNTER 2025-04-18 11:49 | Outpatient (REF) | payer MEDICARE, MEDICAID, SELFPAY ==
[2025-04-18 13:26] LABS: MANUAL DIFF FLAG NO
[2025-04-18 13:38] LABS: Hematocrit 28.2 % (37.0-47.0); Hemoglobin 8.7 g/dl (12.0-16.0); Imm Gran Abs Auto 0.03 X10*3/uL (0.00-0.03); Imm Gran Pct Auto 0.5 % (0.0-0.4); Lymphocytes Absolute Auto 0.6 X10*3/uL (1.2-4.9); Mean Corpuscular HGB Conc 30.9 g/dl (31.0-35.0); Mean Corpuscular Hemoglobin 30.0 pg (27.0-33.0); Mean Corpuscular Volume 97.2 fL (80.0-98.0); NRBC Abs Auto 0.000 X10*3/uL (0.0-0.012); NRBC Pct Auto 0.0 /100WBC (0.0-0.2); Platelet Count 168 X10*3/uL (160-400); Red Blood Count 2.90 X10*6/uL (4.20-5.50); White Blood Count 6.1 X10*3/uL (4.8-10.8)
[2025-04-18 14:29] LABS: Alanine Aminotransferase 22 U/L (0-31); Albumin Level 4.5 g/dL (3.5-5.0); Alkaline Phosphatase 159 U/L (39-117); Anion Gap 23 (12-20); Aspartate Amino Transferase 17 U/L (5-31); Blood Urea Nitrogen 58 mg/dL (9-16); Calcium 8.2 mg/dL (8.4-10.2); Carbon Dioxide 23 mmol/L (22-29); Chloride 103 mmol/L (96-108); Iron 71 mcg/dL (30-160); Percent Iron Saturation 40 % (15-50); Potassium 4.7 mmol/L (3.3-5.1); Sodium 144 mmol/L (135-145); Total Iron Binding Capacity 179 mcg/dL (228-428); Total Protein 8.2 g/dL (6.5-8.0); Unsaturated Iron Binding 108 ug/dL
[2025-04-18 14:31] LABS: Estimated Glomerular Filt Rate 5
[2025-04-18 14:34] LABS: Ferritin 1202 ng/mL (10-122)
== END 2025-04-18 11:50 | disposition home or self-care (01) ==
LOC: HO.10HDL 11:49
PROVIDERS: Visit Provider Internal Medicine
DX: N18.6 End stage renal disease (principal); G40.909 Epilepsy, unspecified, not intractable, without status epilepticus; D50.9 Iron deficiency anemia, unspecified; I27.20 Pulmonary hypertension, unspecified; Z99.2 Dependence on renal dialysis; Z13.29 Encounter for screening for other suspected endocrine disorder
CPT/HCPCS: 36415; 80053; 82728; 83540; 84443; 85025; 99212

== ENCOUNTER 2025-04-21 17:41 | Inpatient (IN) | payer MEDICARE, MEDICAID, SELFPAY ==
--- OUTSIDE RECORDS SUMMARY | 2024-01-17 04:00 | XMS_ITS ---
Author Organization [facility] Address [address] [place] [address] [phone] Care Team Providers Care Simplex Operator Name Role Phone Migration, Provider Unavailable Unavailable REASON FOR VISIT EMR-Stone Encounters Encounter Location Date Provider Diagnosis [facility] [address] [place] [address] [phone] 01/17/2024 Provider Migration Plan Of Treatment No Information Progress Notes * OROZCO ANUELISEDOB: [birth year] (39 yo F)Acc No.[id number]:01/17/2024 Patient: DAVI CORTEZHARRISON :1985 A ge:38 Y S ex:Female Address:[address] [place] [address], [address] Subjective: * Chief Complaints: * E MR-Stone * * Date:
--- OUTSIDE RECORDS SUMMARY | 2024-01-18 04:00 | XMS_ITS ---
Author Organization [facility] Address [address] [place] [address] [phone] Care Team Providers Care Conveyor Worker Name Role Phone Migration, Provider Unavailable Unavailable REASON FOR VISIT EMR-Stone Encounters Encounter Location Date Provider Diagnosis [facility] [address] [place] [address] [phone] 01/18/2024 Provider Migration Plan Of Treatment No Information Progress Notes * OROZCO ANUELISEDOB: [birth year] (39 yo F)Acc No.[id number]:01/18/2024 Patient: DAVI CORTEZHARRISON :1985 A ge:38 Y S ex:Female Address:[address] [place] [address], [address] Subjective: * Chief Complaints: * E MR-Stone * * Date:
--- OUTSIDE RECORDS SUMMARY | 2025-04-16 17:11 | XMS_ITS | Continuity of Care Document ---
Author Organization [facility] ter Address [address] [place] [id number]- Care Team Providers Care Property Assessment Monitor Name Role Phone Marlo AKINS, Antonio Primary Care Physician Encounter [facility] Date(s): 04/15/25 - 04/16/[address] [address]- Encounter Diagnosis End stage renal disease on dialysis(Final) - 04/15/25 Discharge Disposition: A-D/C Home Attending Physician: Luz Nath MD Admitting Physician: Gloria Kelly MD Referring Physician: Not on Staff, Referring MD Encounter Type: Disch Obv Allergies, Adverse Reactions, Alerts Substance Criticality Severity Reaction Reaction Severity Status ibuprofen Unknown Active labetalol ithcing of eyes Acti ve heparin Active methocarbamol Unknown Active furosemide 1 Eruption Active hydrALAZINE 2 Anaphylaxis Acti ve metoprolol Eruption Active isosorbide dinitrate High criticality Severe Active predniSONE 3 Eruption Other Active spironolactone Rash Itching Swelling of breast Active doxazosin no anaphylaxis throat swelling Active lisinopril throat tightening Active hydrOXYzine Active penicillins hives C/O: itching Swelling of throat Active gabapentin High criticality Severe anaphylaxis Active losartan 4 Active valsartan Tongue swelling Itch Facial swelling Active angiotensin converting enzyme inhibitors itchy, rash Unknown Active beta blockers Unknown Active Latex Eruption Itching Active Other Environmental Allergy dye in benadryl Active epoetin beta-methoxy polyethylene glycol Unable to assess criticality Persistent Severe Dyspnea Eruption Active Retacrit Active Motrin Active Adhesive Bandage Act grecia Sensipar Active ANNA inhibitors Unknown Activ e cloNIDine Anaphylaxis Active traMADol throat tightening Active amLODIPine rash Unknown Active cloNIDine topical chest pain A ctive levoFLOXacin Skin peeling an d itchiness Active 1Outside Source Comment: And stomach pain 2On 11/18/2022 had anaphylactic reaction in hospital. Patient reports similar sxs previously with higher doses of hydralazine when tried in past. Patient dose increased overnight - developed hives diffusely, stridor, and wheezing. Resolved with IM epi etc. 3Outside Source Comment: Swelling x 1 episodes. She has taken prednisone at other times without a problem 4Pruritis/rash Functional Status Functional Status Assessment Assessment Assessment Component Result Effecti ve Date Total Falls Risk Score 6 04/16 Functional Status Assessment Assessment Assessment Component Result Effecti ve Date Bertin scale total score 22 Functional Status Assessment Assessment Assessment Component Result Effecti ve Date Bertin scale total score 22 Functional Status Assessment Assessment Assessment Component Result Effecti ve Date Total Falls Risk Score 0 04/16 Immunizations Given and Recorded Vaccine Date Status Refusal Reason pneumococcal 23-valent vaccine 10/18/17 Given influenza virus vaccine, inactivated 05/02/16 Give n tetanus/diphtheria/pertussis, acel(Tdap) 1 12/03/12 Given hepatitis B adult vaccine 06/24/00 Recorded 1Admin Note: Pt given CDC vaccine info sheet Medications acetaminophen 325 mg oral tablet 975 mg, By Mouth, Every 6 hours, # 120 tablet, Refills 1, Tot. Refills 1, Maintenance, 01/27/25 9:55:00 AM EDT, Route to Pharmacy Electronically, [facility]/pharm[facility] #[id number], Partial fill upon patient request if the prescription is for a schedule II opioid drug., 165, cm, 01/27/25 4:07:00 EDT, Height, 56, kg, 01/26/25 4:06:00 EDT, Dry Weight Start Date: 01/27/25 Status: Ordered Medication Dispense Status: Completed Quantity: 120.0 Unit: tablet Total Allowed Fills: 2 Fills Dispensed: 0 Acetaminophen Tablet 650 mg, Tablet, By Mouth, Every 4 hours, PRN for Pain , Mild, Temperature Greater than 100.5, Routine, 04/15/25 12:07:00 PM EST Start Date: 04/15/25 Stop Date: 05/15/25 Status: Ordered Medication Dispense Status: Completed Total Allowed Fills: 1 Fills Dispensed: 0 Advair HFA 230 mcg / 21 mcg 2 puffs, Inhalation, 2 times a day, # 12 Gm, 11 Refills, Maintenance, 03/02/25 4:27:00 PM EDT, Aerosol, [id number], Partial fill upon patient request if the prescription is for a schedule II opioid drug., 2 puffs Inhalation 2 times a day, 165, cm, 03/02/25 16:09:00 EDT, Height, 63, kg, 02/07/25 3:06:00 EDT, Dry Weight Start Date: 03/02/25 Status: Ordered Medication Dispense Status: Completed Quantity: 12.0 Unit: g Total Allowed Fills: 12 Fills Dispensed: 0 Indications: Severe persistent asthma, uncomplicated; Albuterol (Eqv-Ventolin HFA) 90 mcg/inh inhalation aerosol 2 puffs, Inhalation, Every 6 hours, # 8 Gm, 1 Refills, Maintenance, 01/21/25 10:45:00 AM EDT, [id number], Partial fill upon patient request if the prescription is for a schedule II opioid drug., 2 puffs Inhalation Every 6 hours,x30 days, 165, cm, 01/21/25 10:20:00 EDT, Height, 62.4, kg, 01/21/25 4:17:00 EDT, Dry Weight Start Date: 01/21/25 Stop Date: 03/22/25 Status: Ordered Medication Dispense Status: Completed Quantity: 8.0 Unit: g Total Allowed Fills: 2 Fills Dispensed: 0 Indications: Unspecified asthma, uncomplicated; Auryxia 210 mg oral tablet TAKE 2 TABLETS BY MOUTH 3 TIMES DAILY AND 1 TABLET WITH A SNACK Start Date: 08/21/24 Status: Ordered Medication Dispense Status: Completed Total Allowed Fills: 1 Fills Dispensed: 0 calcitriol 0.25 mcg oral capsule = 0.25 mcg, By Mouth, Daily, # 30 each, 0 Refills, Maintenance, 03/18/25 10:53:00 AM EDT, [facility], [facility], Partial fill upon patient request if the prescription is for a scheduleII opioid drug., 165, cm, 03/18/25 0:34:00 EDT, Height, 61.4, kg, 03/18/25 0:34:00 EDT, Dry Weight Start Date: 03/18/25 Stop Date: 04/17/25 Status: Ordered Medication Dispense Status: Completed Quantity: 30.0 Unit: each Total Allowed Fills: 1 Fills Dispensed: 0 carvedilol 25 mg oral tablet 25 mg, Tablet, By Mouth, 04/16/25 9:00:00 AM EST Start Date: 04/16/25 Stop Date: 04/16/25 Status: Completed Medication Dispense Status: Completed Total Allowed Fills: 1 Fills Dispensed: 0 carvedilol 25 mg oral tablet 25 mg, 1, tablet, By Mouth, 2 times a day, # 180 tablet, Refills 0, Maintenance, 12/23/24 9:28:00 AMEDT, Partial fill upon patient request if the prescription is for a schedule II opioid drug. Start Date: 12/23/24 Status: Ordered Medication Dispense Status: Completed Quantity: 180.0 Unit: tablet Total Allowed Fills: 1 Fills Dispensed: 0 cholecalciferol 2000 intl units oral tablet 1 tablet = 50 mcg, By Mouth, Daily, # 30 tablet, 0 Refills, Maintenance, 03/18/25 10:30:00 AM EDT, [facility], Partial fill upon patient request if the prescription is for a schedule IIopioid drug., 165, cm, 03/18/25 0:34:00 EDT, Height, 61.4, kg, 03/18/25 0:34:00 EDT, Dry Weight Start Date: 03/18/25 Stop Date: 04/17/25 Status: Ordered Medication Dispense Status: Completed Quantity: 30.0 Unit: tablet Total Allowed Fills: 1 Fills Dispensed: 0 levETIRAcetam 250 mg oral tablet = 500 mg, By Mouth, Daily in AM, 0 Refills, Maintenance, 03/27/25 11:52:00 AM EDT, Tablet, Partial fill upon patient request if the prescription is for a schedule II opioid drug. Start Date: 03/27/25 Status: Ordered Medication Dispense Status: Completed Total Allowed Fills: 1 Fills Dispensed: 0 levETIRAcetam 250 mg oral tablet 1 tablet = 250 mg, By Mouth, Daily in AM, On dialysis days after HD, # 90 tablet, 1 Refills, Maintenance, 01/06/25 7:21:00 AM EDT, [facility] #[id number], takes in addition to the keppra 500mg, 165, cm, 12/29/24 15:20:00 EDT, Height, 62.5, kg, 12/23/24 12:45:00 EDT, Dry Weight Start Date: 01/06/25 Stop Date: 07/05/25 Status: Ordered Medication Dispense Status: Completed Quantity: 90.0 Unit: tablet Total Allowed Fills: 2 Fills Dispensed: 0 minoxidil 2.5 mg oral tablet 3 tablet = 7.5 mg, By Mouth, Daily Start Date: 03/16/25 Status: Ordered Medication Dispense Status: Completed Total Allowed Fills: 1 Fills Dispensed: 0 Minoxidil Tablet 7.5 mg, Tablet, By Mouth, 04/16/25 9:00:00 AM EST Start Date: 04/16/25 Stop Date: 04/16/25 Status: Completed Medication Dispense Status: Completed Total Allowed Fills: 1 Fills Dispensed: 0 NIFEdipine 60 mg oral tablet, extended release 60 mg, ER Tablet, By Mouth, 04/16/25 9:00:00 AM EST Start Date: 04/16/25 Stop Date: 04/16/25 Status: Completed Medication Dispense Status: Completed Total Allowed Fills: 1 Fills Dispensed: 0 NIFEdipine 60 mg oral tablet, extended release 60 mg, 1, tablet, By Mouth, 2 times a day, Refills 0, Maintenance, 03/16/25 8:47:00 AM EDT, Partialfill upon patient request if the prescription is for a schedule II opioid drug. Start Date: 03/16/25 Status: Ordered Medication Dispense Status: Completed Total Allowed Fills: 1 Fills Dispensed: 0 oxyCODONE 15 mg oral tablet 1 tablet = 15 mg, By Mouth, Every 4 hours, PRN as needed for pain, # 168 tablet, 0 Refills, Maintenance, 03/22/25 4:26:00 PM EDT, Tablet, [facility]/pharm[facility] #[id number], Partial fill upon patient request if the prescription is for a schedule II opioid drug., 165, cm, 03/22/25 15:25:00 EDT, Height, 61.4, kg, 03/18/25 0:34:00 EDT, Dry Weight Start Date: 03/22/25 Stop Date: 04/19/25 Status: Ordered Medication Dispense Status: Completed Quantity: 168.0 Unit: tablet Total Allowed Fills: 1 Fills Dispensed: 0 oxyCODONE 5 mg oral tablet 15 mg, Tablet, By Mouth, Every 4 hours, PRN for Pain , Moderate, ABRAM, 04/15/25 2:25:00 PM EST Start Date: 04/15/25 Stop Date: 04/22/25 Status: Ordered Medication Dispense Status: Completed Total Allowed Fills: 1 Fills Dispensed: 0 pantoprazole 40 mg oral delayed release tablet 1 tablet = 40 mg, By Mouth, Daily, # 90 tablet, 4 Refills, Maintenance, 03/22/25 4:11:00 PM EDT, ECTablet, 165, cm, 03/22/25 15:25:00 EDT, Height, 61.4, kg, 03/18/25 0:34:00 EDT, Dry Weight Start Date: 03/22/25 Stop Date: 06/15/26 Status: Ordered Medication Dispense Status: Completed Quantity: 90.0 Unit: tablet Total Allowed Fills: 5 Fills Dispensed: 0 VITAMIN D3 2,000 UNIT TABLET VITAMIN D3 2,000 UNIT TABLET, TAKE 1 TABLET BY MOUTH EVERY DAY Start Date: 12/23/24 Status: Ordered Medication Dispense Status: Completed Total Allowed Fills: 1 Fills Dispensed: 0 Mental Status Mental Status Assessment Assessment Assessment Component Result Effecti ve Date [place] coma score total 15 Problem List Condition Confirmation Course Effective Dates Status Health Status Informant Anemia due to chronic kidney disease Confirmed Active Elevated troponin Confirmed Active Chronic hypoxemic respiratory failure Confirmed Active Chronic kidney disease-mineral and bone disorder Confirmed Active Chronic pain syndrome Confirmed Active Cirrhosis Confirmed Active Hemodialysis patient Confirmed Active ESRD on hemodialysis TTS Confirmed Active Depressed mood Confirmed Active Dysphagia Confirmed Active GERD (gastroesophageal reflux disease) Confirmed Active History of gastric ulcer Confirmed Active (HFpEF) heart failure with preserved ejection fraction Confirmed Active Hypertension Confirmed Active Hyperlipidemia Confirmed Active Hyperparathyroidism Confirmed Active Hypertensive urgency Confirmed Active Hypocalcemia Confirmed Active Moderate persistent asthma Confirmed Active Nasolabial cyst, Left 1 Confirmed 11/29/24 Active Pericardial effusion Confirmed Active Pulmonary hypertension Confirmed 11/03/24 Active Restrictive lung disease Confirmed Active Seizure disorder Confirmed Active Asthma, severe persistent Confirmed Active Tricuspid regurgitation Confirmed Active UTI (urinary tract infection) Confirmed Active Saphenous vein occlusion, right Confirmed Active 1on MRI Results Radiology Reports * Exam Date Time Procedure Performing Provider Status 04/15/25 10:45 AM Chest 2 Views Frontal and Lat Auth (Verified) Notes: (Chest 2 Views Frontal and Lat) Reason For Exam: Shortness of Breath RESULT: Chest 2 Views Frontal and Lat Chest 2 Views Frontal and Lat Refer to EMR; Hx of Present Illness: Pt reports that she was turned away at dialysis this morning due to understaffing. Here reporting CP and dizziness and the need for dialysis. Also reports pruritis all over due to using paper tape with her child lastnight.; Reason: Shortness of Breath; Clinical Question(s): CHF COMPARISON: Multiple priors with the most recent dated 03/31/2025. FINDINGS: LINES AND TUBES: None. LUNGS AND PLEURA: Clear lungs. No overt pulmonary edema. No evidence of pleural effusion. No pneumothorax. HEART, MEDIASTINUM AND STUART: Moderate prominence of the cardiac silhouette, unchanged. Normal mediastinal and hilar contour. BONES AND SOFT TISSUES: No acute abnormality. Surgical clips in the cervical region. IMPRESSION: Cardiomegaly with no overt pulmonary edema. I have personally reviewed the images and I agree with this report. WSN: [id number] Ordering Physician: Kathi Elliott Dictated By: Gamaliel De Paz MD Dictated Date/Time: 04/15/25 11:09 a Reviewed By: Champ Prescott MD, V Signed By: Champ Prescott MD, V Signed Date/Time: 04/15/25 11:14 am Transcribed By: MIGUE Transcribed Date/Time: 04/15/25 10:50 am Vital Signs Most recent to oldest [Reference Range]: 1 2 3 4 5 Height 165 cm (04/16/25 3:43 PM) 165 cm (04/16/25 2:39 PM) 165 cm (04/16/25 12:51 PM) Weight 66.1 kg (04/15/25 6:42 AM) 66.1 kg (04/15/25 6:39 AM) 66.1 kg (04/15/25 6:30 AM) Oxygen Saturation [94-100 %] 100 % (04/16/25 3:43 PM) 99 % (04/16/25 2:39 PM) 100 % (04/16/25 12:51 PM) Pulse Rate [55-90 bpm] 63 bpm (04/16/25 3:43 PM) 78 bpm (04/16/25 2:39 PM) 94 bpm *H* (04/16/25 1:16 PM) Body Mass Index [18.5-24.99 kg/m2] 24.28 kg/m2 (04/15/25 6:39 AM) 24.28 kg/m2 (04/15/25 6:30 AM) Blood Pressure [90-138/55-84 mm Hg] 133/74mm Hg (04/16/25 3:43 PM) 120/70mm Hg (04/16/25 2:39 PM) 152/73mm Hg *H* (04/16/25 1:16 PM) 158/73mm Hg *H* (04/16/25 1:16 PM) 158/73mm Hg *H* (04/16/25 1:16 PM) Respiratory Rate [16-30 br/min] 18 br/min (04/16/25 5:03 PM) 18 br/min (04/16/25 5:03 PM) 16 br/min (04/16/25 3:43 PM) Temperature [96.8-100.4 DegF] 98.0 DegF (04/16/25 3:43 PM) 98.1 DegF (04/16/25 2:39 PM) 98.2 DegF (04/16/25 11:30 AM) Liters per Minute 2 L/min (04/16/25 12:51 PM) 2 L/min (04/16/25 11:30 AM) 2 L/min (04/16/25 7:30 AM) Mode of Delivery (Oxygen) Nasal cannula (04/16/25 3:43 PM) Room air (04/16/25 2:39 PM) Nasal cannula (04/16/25 12:51 PM) Blood pressure sites Arm, right (04/16/25 3:43 PM) Arm, left (04/16/25 2:39 PM) Arm, right (04/16/25 12:51 PM) Temperature Route Oral (04/16/25 3:43 PM) Oral (04/16/25 2:39 PM) Oral (04/16/25 11:30 AM) Dry Weight 66.1 kg (04/15/25 6:42 AM) 66.1 kg (04/15/25 6:39 AM) Weight Obtained Via Standing scale (04/15/25 6:30 AM) Social History Social History Type Response Smoking Status Never smoker; Other: Pt. states she has never been a smoker; entered on: 02/15/16 Sexual Orientation Self described orien tation: ; Straight or heterosexual Sex Sex Representation Female (finding) EKG study * Event Display: ECG 12-Lead Authored Date: Please click on pdf link to open report * Event Display: ECG 12-Lead Authored Date: Ventricular Rate: 69 BPM Atrial Rate: 69 BPM P-R Interval: 162 ms QRS Duration: 82 ms Q-T Interval: 446 ms QTC Calculation(Bazett): 477 ms P [place]: 47 degrees R [place]: 8 degrees T [place]: 146 degrees Normal sinus rhythm Possible Left atrial enlargement Minimal voltage criteria for LVH, may be normal variant ( Demetrio product ) ST and T wave abnormality, consider lateral ischemia Abnormal ECG When compared with ECG of 31-Mar-2025 08:20, T wave inversion more evident in Lateral leads Confirmed by YOVANI BEST ([id number]) on 04/15/2025 1:16:16 PM Wells: YOVANI BEST Procedure * Event Display: Cardiac Rhythm Strips Authored Date: Hospital Progress note * Audrey Marlow RN: PERFORM, SIGN, VERIFY Event Display: Progress Note Hospital Authored Date: Patient: HIMA MORRIS Age: 39 years Sex: Female : 1985 Associated Diagnoses: None Author: Audrey Marlow RN Findings Narrative/Incidental Verbal necessary per protocol: Yes Name: Loyda Brito RN 4 hour HD with 2K bath used for K blood level of 5.0. Access- AVF left upper arm with +thrill and bruit. Site assessment: No s/s infection Hemostasis achieved within expected time frame- Yes 2.5 liters pulled -3.6% blood volume change Overall, patient tolerated treatment well. Vitals remained mostly stable during treatment. BenadrylIV given along with Tylenol for pain. No other meds or blood products given. Vitals stable at the end of treatment 98.2, 12, 60, 149/77. Patient returned back to unit stable with transport team. Refer to interactive flow sheets for charting. . Electronically Signed on 04/16/25 02:06 PM Hiren Mcnally RN, [facility] * Malick Arechiga DO: VERIFY, PERFORM, SIGN Event Display: Progress Note Hospital Authored Date: [id number] Patient: HIMA MORRIS Age: 39 years Sex: Female : 1985 Associated Diagnoses: None Author: Malick Arechiga DO Hospital Course Patient seen during: hemodialysis. Complaints: frustration with chronic pain, anger that she isn't getting iv pain meds. seems to lackinsight with regards to the fact that she has been to numerous hospitals over the last year and it has been very difficult to coordinate any care. Finally has a PCP. . Dialysate Prescription Potassium concentration 2 . Bicarbonate concentration 36 . Blood volume monitor reviewed: yes. Heparin dose: none. Physical Examination Vitals Today's visit vitals : RENAL FLOWSHEET(Posting Range: 04/13/2025 0:00 EST - 04/16/2025 10:27 EST) 04/16/2025 10:00 EST Systolic Blood Pressure 126 mm Hg Diastolic Blood Pressure 104 mm Hg H Dialysis Arterial Pressure -170 mm Hg Dialysis Venous Pressure 240 mm Hg Transmembrane Pressure (TMP) 10 mm Hg Ultrafiltration Rate (UFR) 0.70 Normal Saline 0 mL Crit Reference 27.4 Blood Volume Change -6.6 % 04/16/2025 9:30 EST Systolic Blood Pressure 112 mm Hg Diastolic Blood Pressure 89 mm Hg H Dialysis Arterial Pressure -120 mm Hg Dialysis Venous Pressure 230 mm Hg Transmembrane Pressure (TMP) 20 mm Hg Ultrafiltration Rate (UFR) 0.70 Normal Saline 0 mL Crit Reference 27.4 Blood Volume Change -4.7 % 04/16/2025 9:00 EST Systolic Blood Pressure 169 mm Hg H Diastolic Blood Pressure 109 mm Hg H Dialysis Arterial Pressure -100 mm Hg Dialysis Venous Pressure 250 mm Hg Transmembrane Pressure (TMP) 10 mm Hg Ultrafiltration Rate (UFR) 0.70 Normal Saline 0 mL Crit Reference 27.4 Blood Volume Change -3.7 % 04/16/2025 8:30 EST Est Creatinine Clearance 8.54 mL/min 04/16/2025 8:30 EST Systolic Blood Pressure 136 mm Hg Diastolic Blood Pressure 45 mm Hg L Dialysis Arterial Pressure -130 mm Hg Dialysis Venous Pressure 220 mm Hg Transmembrane Pressure (TMP) 5 mm Hg Ultrafiltration Rate (UFR) 0.70 Normal Saline 0 mL Crit Reference 27.4 Blood Volume Change -0.5 % 04/16/2025 8:00 EST Systolic Blood Pressure 148 mm Hg H Diastolic Blood Pressure 77 mm Hg Dialysis Machine # [id number] Dialysis Reverse Osmosis (RO) Main RO Dialysis Machine Temperature 35.4 Dialysis Bleach Negative Negative Dialysis BiCarb 3.3 Dialysis pH 7.3 Dialysis Conductivity 13.8 Dialysis Meter 13.8 Dialysis Sodium 138 Dialysis Treatment Type Hemodialysis Dialyzer Optiflux Dialysis Arterial Pressure -130 mm Hg Dialysis Venous Pressure 210 mm Hg Transmembrane Pressure (TMP) 10 mm Hg Ultrafiltration Rate (UFR) 0.70 Normal Saline 0 mL Crit Reference 27.4 Blood Volume Change 0 % AV Fistula/AV Graft Location Upper arm, Left AV Fistula/AV Graft Site Assessment Clean, Dry AV Fistula/AV Graft Needle Size 15 AV Fistula/AV Graft Needle Placement Arterial up/ Venous up 04/16/2025 7:54 EST Hgb 8.0 Gm/dL L Hct 25.8 % L WBC 5.7 k/mm3 04/16/2025 7:30 EST Systolic Blood Pressure 177 mm Hg H Diastolic Blood Pressure 126 mm Hg H Dialysis Arterial Pressure 0 mm Hg Dialysis Venous Pressure 110 mm Hg Transmembrane Pressure (TMP) 25 mm Hg Ultrafiltration Rate (UFR) 0.70 Normal Saline 0 mL Crit Reference 27.4 Blood Volume Change 0 % 04/16/2025 6:48 EST Creatinine-Blood 8.02 mg/dL H BUN 38 mg/dL H Estimated GFR Creatinine 6 ML/MIN/1.73 M2 Sodium 134 mmol/L Potassium 5.0 mmol/L Chloride 94 mmol/L L Bicarbonate Level 26 mmol/L Anion Gap 14 mmol/L Calcium 7.6 mg/dL L . Physical Exam JVD: yes. Cardiac: RRR. Lungs: clear bilateral. Abdomen/GI: soft. Extremities: lower extremity edema trace. Access: AVG. Impression and Plan Impression: ESRD, Hypertension, Volume overload. Plan: Continue Dialysis/ultrafiltration, 39-year-old female with a history of ESRD secondary to hypertensive renal disease who dialyzes on a T/T/S schedule at [facility] via a L upper arm AV Fistula. Past medical history is significant for HTN, history of large circumferential pericardial effusion (s/p pericardial drain placement for 20 days Jun-Jul 2023), chronic systolic heart failure with EF 45-50%, chronic back pain with chronic narcotic dependence, interstitial lung disease,pulmonary hypertension, severe tricuspid regurgitation, and mood disorder. She has been hospitalized multiple times in recent months, with some admissions to [facility] but also admissions to [place], [facility], [facility], and [facility]. She presented to [facility] on 04/15 after she skipped her outpatient HDyesterday and had difficulties rescheduling Friday (she did try to go). OK for d/c home today from my perspective. I will message her PCP to see about getting her enrolledin pain mgmt program. . Electronically Signed on 04/16/25 10:29 AM Malick Arechiga DO, RN, Sheila: PERFORM, SIGN, VERIFY Event Display: Progress Note Hospital Authored Date: [id number] Patient: HIMA MORRIS Age: 39 years Sex: Female : 1985 Associated Diagnoses: None Author: Estelita Luther RN Findings Narrative/Incidental Patient had a stable 4 hour HD treatment. Medicated with benadryl at begining of treatment. Patientslept thru entire treatment and needed to be woken up to take B/P medications and pain medication. Upon awakening, patient with c/o cramping. given hot and cold packes per her request with some relief. MD here to see patient. Pulled 5.2 liters of fluid, per crit line. BV change -12.6%. treatment done on a K+2 bath per Protocol. Left arm AVF with + bruit and + thrill. See interactive flow sheet for details. . Electronically Signed on 04/15/25 05:35 PM Homa MCKEON, Estelita Consult note * Malick Arechiga DO: MODIFY Mechelle Rodgers NP: PERFORM Event Display: Consultation Note Authored Date: [id number] Patient: ??HIMA MORRIS ? Age:??39 Years?Sex:??Female?:??1985?LOC:??[facility]?? Attending:??Not on Staff, Attending MD Admission Date: 04/15/2025 ?? Chief Complaint and Reason for Consultation Assistance with the management of ESRD and HD needs. ?? History of Present Illness Ms. Morris is a 39-year-old female with a history of ESRD secondary to hypertensive renal disease who dialyzes on a??T/T/S schedule at??[facility]??via a L upper arm AV Fistula.?? Pastmedical history is significant for HTN,??history of??large circumferential pericardial effusion (s/p pericardial drain placement for 20 days Jun-Jul 2023), chronic systolic heart failure with EF 45-50%, chronic??back pain with chronic narcotic dependence, interstitial lung disease, pulmonary hypertension, severe tricuspid regurgitation,??and mood disorder.?? She has been??hospitalized multiple times in recent months, with some admissions to??[facility] but also admissions to [place], [facility], [facility],??and [facility].?? She??presented??to [facility] on??04/15 after she skipped her outpatient HD yesterday and had difficulties rescheduling today.? Past Medical History Active Problems(28) (HFpEF) heart failure with preserved ejection fraction Anemia due to chronic kidney disease Asthma, severe persistent Chronic hypoxemic respiratory failure Chronic kidney disease-mineral and bone disorder Chronic pain syndrome Cirrhosis Depressed mood Dysphagia Elevated troponin ESRD on hemodialysis TTS GERD (gastroesophageal reflux disease) Hemodialysis patient History of gastric ulcer Hyperlipidemia Hyperparathyroidism Hypertension Hypertensive urgency Hypocalcemia Moderate persistent asthma Nasolabial cyst, Left Pericardial effusion Pulmonary hypertension Restrictive lung disease Saphenous vein occlusion, right Seizure disorder Tricuspid regurgitation UTI (urinary tract infection) ? Medications: Home Medications (14) Active acetaminophen 325 mg oral tablet??975 mg, By Mouth, Every 6 hours Advair HFA 230 mcg / 21 mcg??2 puffs, Inhalation, 2 times a day Albuterol (Eqv-Ventolin HFA) 90 mcg/inh inhalation aerosol??2 puffs, Inhalation, Every 6 hours Auryxia 210 mg oral tablet?? calcitriol 0.25 mcg oral capsule??0.25 mcg, By Mouth, Daily carvedilol 25 mg oral tablet??25 mg = 1 tablet, By Mouth, 2 times a day cholecalciferol 2000 intl units oral tablet??50 mcg = 1 tablet, By Mouth, Daily levETIRAcetam 250 mg oral tablet??250 mg = 1 tablet, By Mouth, Daily in AM levETIRAcetam 250 mg oral tablet??500 mg, By Mouth, Daily in AM minoxidil 2.5 mg oral tablet??7.5 mg = 3 tablet, By Mouth, Daily NIFEdipine 60 mg oral tablet, extended release??60 mg = 1 tablet, By Mouth, 2 times a day oxyCODONE 15 mg oral tablet??15 mg = 1 tablet, PRN, By Mouth, Every 4 hours pantoprazole 40 mg oral delayed release tablet??40 mg = 1 tablet, By Mouth, Daily VITAMIN D3 2,000 UNIT TABLET? FH: Reviewed and non-contributory ?? Social: Reviewed ?Review of Systems Const: no fever, no chills HEENT: no dizziness, no headaches, no vision changes Resp: no SOB, no wheezing, no cough CV: no chest pain, no palpitations, no edema, no orthopnea, no syncope GI: no abdominal pain, no n/v, no diarrhea, no constipation, no melena, no hematochezia : no dysuria, no hematuria MSK: no myalgias, no DROM, no back pain Neuro: no paresthesias, no focal weakness?? Skin: no rashes Heme: No easy bruising, no bleeding or clotting tendency ?? 03/11 systems were reviewed and were negative for any positive or negative complaint, except as mentioned above. ?? Objective Vital Signs (last 24 hrs) ?Last Charted Heart Rate Peripheral?71 bpm ??(APR 15 09:59) Resp Rate?18 br/min ??(APR 15 09:59) SBP?H??188mm Hg ??(APR 15 09:59) DBP?H??97mm Hg ??(APR 15 09:59) SpO2?100 % ??(APR 15 09:59) Weight?66.1 kg ??(APR 15 06:42) Height?165 cm ??(APR 15 06:42) BMI?24.28 ??(APR 15 06:39) No qualifying data available. Intake/Output?? 04/15 06:22 04/15 07:00 04/14 07:00 04/13 07:00 04/12 07:00 ?? 04/15 10:13 04/15 10:13 04/15 06:59 04/14 06:59 04/13 06:59 Intake ? 50 ? 50 ?0 ?0 ?0 Output ?0 ?0 ?0 ?0 ?0 Net Total ? 50 ? 50 ?0 ?0 ?0 ? Physical Exam General: ??NAD, AAOx4 HEENT: NCAT, MMM Neck: no JVD Cardio: normal S1 snd S2, no MRG, RRR Resp: CTAB Abdo: NT, ND, Extremities: No peripheral edema, Skin: No rashes or other abnormalities Neuro: Grossly intact ?? BLOOD COUNT & DIFF WBC 5.6 k/mm3 ()?? 04/15/2025 06:57 RBC 2.62 m/mm3 (Low)?? 04/15/2025 06:57 Hgb 8.0 Gm/dL (Low)?? 04/15/2025 06:57 Hct 25.3 % (Low)?? 04/15/2025 06:57 MCV 96.6 femtoliters ()?? 04/15/2025 06:57 MCH 30.5 pg ()?? 04/15/2025 06:57 MCHC 31.6 Gm/dL (Low)?? 04/15/2025 06:57 Platelet Count 166 k/mm3 ()?? 04/15/2025 06:57 RDW-SD 53.1 femtoliters (High)?? 04/15/2025 06:57 MPV 10.3 femtoliters ()?? 04/15/2025 06:57 Nucleated RBC (Automated) 0.0 #/100 WBC'S ()?? 04/15/2025 06:57 Abs. NRBC 0.0 k/mm3 ()?? 04/15/2025 06:57 Abs. Neut 3.8 k/mm3 ()?? 04/15/2025 06:57 Abs. Lymph 0.9 k/mm3 ()?? 04/15/2025 06:57 Abs. Jackson 0.5 k/mm3 ()?? 04/15/2025 06:57 Abs. Eo 0.4 k/mm3 ()?? 04/15/2025 06:57 Abs. Baso 0.1 k/mm3 ()?? 04/15/2025 06:57 Neut % 67.3 % ()?? 04/15/2025 06:57 Lymph % 15.2 % ()?? 04/15/2025 06:57 Jackson % 9.0 % ()?? 04/15/2025 06:57 Eos % 7.0 % (High)?? 04/15/2025 06:57 Baso % 1.1 % ()?? 04/15/2025 06:57 Imm Gran 0.4 % ()?? 04/15/2025 06:57 Abs. Imm Gran 0.0 k/mm3 ()?? 04/15/2025 06:57 ?? CARDIAC High Sensitivity Troponin (HSTnT) 74 ng/L (Critical)?? 04/15/2025 06:57 ?? CHEM GENERAL Sodium 139 mmol/L ()?? 04/15/2025 06:57 Potassium 6.3 mmol/L (Critical)?? 04/15/2025 06:57 Chloride 96 mmol/L (Low)?? 04/15/2025 06:57 Bicarbonate Level 23 mmol/L ()?? 04/15/2025 06:57 Anion Gap 20 mmol/L (High)?? 04/15/2025 06:57 Glucose Level 88 mg/dL ()?? 04/15/2025 06:57 BUN 73 mg/dL (High)?? 04/15/2025 06:57 Creatinine-Blood 12.65 mg/dL (Critical)?? 04/15/2025 06:57 Estimated GFR Creatinine 4 ML/MIN/1.73 M2 ()?? 04/15/2025 06:57 Calcium 7.7 mg/dL (Low)?? 04/15/2025 06:57 ?? HEME OTHER Hold Blue Top SPECIMEN DISCARDED AFTER 4 HOURS. ()?? 04/15/2025 06:57 ?? URINE OTHER Est Creatinine Clearance 5.42 mL/min ()?? 04/15/2025 08:05 ?? No qualifying data available ? Assessment/Plan Ms. Morris is a 39-year-old female with a history of ESRD secondary to hypertensive renal disease who dialyzes on a??T/T/S schedule at??[facility]??via a L upper arm AV Fistula.?? Pastmedical history is significant for HTN,??history of??large circumferential pericardial effusion (s/p pericardial drain placement for 20 days Jun-Jul 2023), chronic systolic heart failure with EF 45-50%, chronic??back pain with chronic narcotic dependence, interstitial lung disease, pulmonary hypertension, severe tricuspid regurgitation,??and mood disorder.?? She has been??hospitalized multiple times in recent months, with some admissions to??[facility] but also admissions to [place], [facility],??and [facility].?? She??presented??to [facility] on??04/15 after she skipped her outpatient HD yesterday and had difficulties rescheduling today.? 1. ESRD on HD - schedule: T/T/S at [facility] - access: L upper arm AVF - adequacy: currently not??meeting outpatient clearance goals; frequently cuts/skips treatments at outpatient HD - blood pressure: well-controlled on current outpatient regimen?? - volume status: euvolemic - iron stores: receiving iron per algorithm at outpatient dialysis - JOANNE therapy: receiving long-acting??JOANNE per algorithm at outpatient dialysis - phosphorous level: on phosphorous binders and??calcimimetics/activated vitamin D per algorithm atoutpatient dialysis ?? 2. Hyperkalemia - pt did not attend her last regularly scheduled outpatient HD session ?? Plan - HD??on T/T/S schedule while admitted - continue home BP meds ? Electronically Signed on 04/15/25 10:21 AM Mechelle Rodgers NP Electronically Signed on 04/15/25 12:23 PM Malick Arechiga DO Note * Amy Cristina RN: PERFORM Event Display: Discharge/Transfer Note Hospital Authored Date: [id number] Nursing Discharge Note Entered On: 04/16/2025 17:04 EST Performed On: 04/16/2025 17:04 EST by Amy Cristina RN Nursing Discharge Note 2 Discharge Time : 04/16/2025 17:30 EST Discharge Level of Care at Discharge : Home/Alf/Foster Care Patient Left Unit Via : Wheelchair Patient Accompanied Off Unit with : Responsible adult DC Instructions Provided & Signed by Pt : Yes Patient Understands D/C Instructions : Yes Patient Instructions Discharge Signed : Yes Did Pt have Specialty Bed or Wound Vac : No Amy Cristina RN - 04/16/2025 17:04 EST Electronically Signed on 04/16/25 05:04 PM Amy Cristina RN * Pham AKINS, Luz: PERFORM Event Display: Discharge/Transfer Note Hospital Authored Date: [id number] Patient: ??HIMA MORRIS ? Age:??39 Years?Sex:??Female?:??1985?LOC:??[facility]?? Patient Information Discharge Location: D3B Primary Care Physician: Antonio Sellers MD Admit Date/Time: 04/15/2025 06:22 Discharge Disposition Discharge Disposition: Home: No Services Discharge Diagnosis Chest pain ([id number]) End stage renal disease on dialysis (N18.6) _ Discharge Medications Acetaminophen (acetaminophen 325 mg oral tablet)??975 Milligram By Mouth Every 6 hours Albuterol (Albuterol (Eqv-Ventolin HFA) 90 mcg/inh inhalation aerosol)??2 puff(s) Inhalation Every 6 hours for 30 Days Calcitriol (calcitriol 0.25 mcg oral capsule)??0.25 Microgram By Mouth Daily for 30 Days Carvedilol (carvedilol 25 mg oral tablet)??25 Milligram 1 tablet By Mouth 2 times a day Cholecalciferol (cholecalciferol 2000 intl units oral tablet)??1 tab(s) 50 Microgram By Mouth Dailyfor 30 Days ferric citrate (Auryxia 210 mg oral tablet)??TAKE 2 TABLETS BY MOUTH 3 TIMES DAILY AND 1 TABLET WITH A SNACK Fluticasone-Salmeterol (Advair HFA 230 mcg / 21 mcg)??2 puff(s) Inhalation 2 times a day levETIRAcetam (levETIRAcetam 250 mg oral tablet)??1 tab(s) 250 Milligram By Mouth Daily in AM for 90 Days On dialysis days after HD levETIRAcetam (levETIRAcetam 250 mg oral tablet)??500 Milligram By Mouth Daily in AM Minoxidil (minoxidil 2.5 mg oral tablet)??3 tab(s) 7.5 Milligram By Mouth Daily Miscellaneous Rx (VITAMIN D3 2,000 UNIT TABLET)??TAKE 1 TABLET BY MOUTH EVERY DAY NIFEdipine (NIFEdipine 60 mg oral tablet, extended release)??60 Milligram 1 tablet By Mouth 2 timesa day Oxycodone (oxyCODONE 15 mg oral tablet)??1 tab(s) 15 Milligram By Mouth Every 4 hours as needed as needed for pain for 28 Days Pantoprazole (pantoprazole 40 mg oral delayed release tablet)??1 tab(s) 40 Milligram By Mouth Dailyfor 90 Days ? Durable Medical Equipment Current home treatments: Oxygen therapy (03/19/25) On Admit VNA/Hospice/Home Care: [facility] [address] [facility] [id number] (03/16/25) On Admit Medical Equip Companies: [employer] (03/16/25) Discharge recommendations: Home (03/16/25) Discharge Medical Equipment Companies: [facility] (10/08/24) Name of Agency #1: [facility] (06/23/24) Agency Drug Clerk #1: Intake (05/17/24) Service Categories #1: Group Home, Physical Therapy (06/23/24) Service Comments #1: [facility] will contact you 24/48hrs after discharge to arrange an in home visit. Please contact agency for any questions or concerns (06/23/24) Ambulatory devices needed: None (03/31/25) ? Discharge Medications Unchanged Acetaminophen (acetaminophen 325 mg oral tablet)975 Milligram Oral every 6 hours. Refills: 1. Albuterol (Albuterol (Eqv-Ventolin HFA) 90 mcg/inh inhalation aerosol)2 puff(s) Inhalation every 6 hours for 30 Days. Refills: 1. Calcitriol (calcitriol 0.25 mcg oral capsule)0.25 Microgram Oral Daily for 30 Days. Refills: 0. Carvedilol (carvedilol 25 mg oral tablet)1 tab(s) Oral twice a day. Cholecalciferol (cholecalciferol 2000 intl units oral tablet)1 tab(s) Oral Daily for 30 Days. Refills: 0. ferric citrate (Auryxia 210 mg oral tablet)TAKE 2 TABLETS BY MOUTH 3 TIMES DAILY AND 1 TABLET WITH A SNACK. Fluticasone-Salmeterol (Advair HFA 230 mcg / 21 mcg)2 puff(s) Inhalation twice a day. Refills: 11. levETIRAcetam (levETIRAcetam 250 mg oral tablet)1 tab(s) Oral Daily in the morning for 90 Days. On dialysis days after HD. Refills: 1. levETIRAcetam (levETIRAcetam 250 mg oral tablet)500 Milligram Oral Daily in the morning. Minoxidil (minoxidil 2.5 mg oral tablet)3 tab(s) Oral Daily. Miscellaneous Rx (VITAMIN D3 2,000 UNIT TABLET)TAKE 1 TABLET BY MOUTH EVERY DAY. NIFEdipine (NIFEdipine 60 mg oral tablet, extended release)1 tab(s) Oral twice a day. Oxycodone (oxyCODONE 15 mg oral tablet)1 tab(s) Oral every 4 hours as needed as needed for pain for28 Days. Refills: 0. Pantoprazole (pantoprazole 40 mg oral delayed release tablet)1 tab(s) Oral Daily for 90 Days. Refills: 4. Allergies Allergies ?(Active and Proposed Allergies Only) Other Environmental Allergy? (Severity: Unknown severity, Onset: Unknown) ?Reactions: dye in benadryl valsartan? (Severity: Unknown severity, Onset: Unknown) ?Reactions: Facial swelling, Itch, Tongue swelling hydrALAZINE? (Severity: Unknown severity, Onset: Unknown) ?Reactions: Anaphylaxis ?Comments: On 11/18/2022 had anaphylactic reaction in hospital. Patient reports similar sxs previously with higher doses ?of hydralazine when tried in past. Patient dose increased overnight - developed hives diffusely, stridor, and ?wheezing. Resolved with IM epi etc. cloNIDine? (Severity: Unknown severity, Onset: Unknown) ?Reactions: Anaphylaxis hydrOXYzine? (Severity: Unknown severity, Onset: Unknown) levoFLOXacin? (Severity: Unknown severity, Onset: Unknown) ?Reactions: Skin peeling and itchiness amLODIPine? (Severity: Unknown severity, Onset: Unknown) ?Reactions: Unknown, rash heparin? (Severity: Unknown severity, Onset: Unknown) Adhesive Bandage? (Severity: Unknown severity, Onset: Unknown) methocarbamol? (Severity: Unknown severity, Onset: Unknown) ?Reactions: Unknown ibuprofen? (Severity: Unknown severity, Onset: Unknown) ?Reactions: Unknown Retacrit? (Severity: Unknown severity, Onset: Unknown) doxazosin? (Severity: Unknown severity, Onset: Unknown) ?Reactions: throat swelling, no anaphylaxis isosorbide dinitrate? (Severity: Severe, Onset: Unknown) spironolactone? (Severity: Unknown severity, Onset: Unknown) ?Reactions: Swelling of breast, Itching, Rash cloNIDine topical? (Severity: Unknown severity, Onset: Unknown) ?Reactions: chest pain losartan? (Severity: Unknown severity, Onset: Unknown) ?Comments: Pruritis/rash gabapentin? (Severity: Severe, Onset: Unknown) ?Reactions: anaphylaxis labetalol? (Severity: Unknown severity, Onset: Unknown) ?Reactions: ithcing of eyes angiotensin converting enzyme inhibitors? (Severity: Unknown severity, Onset: 04/30/2022) ?Reactions: itchy, rash, Unknown beta blockers? (Severity: Unknown severity, Onset: 04/30/2022) ?Reactions: Unknown ANNA inhibitors? (Severity: Unknown severity, Onset: 04/30/2022) ?Reactions: Unknown lisinopril? (Severity: Unknown severity, Onset: Unknown) ?Reactions: throat tightening traMADol? (Severity: Unknown severity, Onset: Unknown) ?Reactions: throat tightening Latex? (Severity: Unknown severity, Onset: 06/25/2020) ?Reactions: Itching, Eruption furosemide? (Severity: Unknown severity, Onset: 03/26/2020) ?Reactions: Eruption ?Comments: Outside Source Comment: And stomach pain metoprolol? (Severity: Unknown severity, Onset: 05/26/2019) ?Reactions: Eruption epoetin beta-methoxy polyethylene glycol? (Severity: Persistent Severe, Onset: 09/14/2018) ?Reactions: Eruption, Dyspnea Motrin? (Severity: Unknown severity, Onset: Unknown) Sensipar? (Severity: Unknown severity, Onset: Unknown) predniSONE? (Severity: Unknown severity, Onset: 10/03/2015) ?Reactions: Other, Eruption ?Comments: Outside Source Comment: Swelling x 1 episodes. She has taken prednisone at other times without a problem penicillins? (Severity: Unknown severity, Onset: Unknown) ?Reactions: Swelling of throat, C/O: itching, hives ? Future Appointments Friday2025 11:00 AM EST ?? Type: Return With: Antonio Sellers MD Where: [facility] [address] [id number]- Status: Pending Hospital Course ?a 39-year-old female with a history of ESRD secondary to hypertensive renal disease?? ON HD ??T/T/S schedule at??[facility]??via a L upper arm AV Fistula, HTN,??history of??large circumferential pericardial effusion (s/p pericardial drain placement for 20 days Jun-Jul 2023), chronic systolic heart failure with EF 45-50%, chronic??back pain with chronic narcotic dependence, interstitial lung disease, pulmonary hypertension, severe tricuspid regurgitation,??and mood disorder.??She has been??hospitalized multiple times in recent months, with some admissions to??[facility] but also admissions to [place], [facility], [facility],??and [facility].?? She??presented??to [facility] on??04/15 after she skipped her outpatient HD yesterday and had difficulties rescheduling today.?Renal was consulted.?? Admitting physician placed a discharge order yesterday but patient refused to leave yesterday. ??She went for dialysis today, complained??tolerated??well completed the full session.?? Complaining of some itching after the dialysis requesting for IV Dilaudid??and breathing treatment.?? Shewill be given 1 dose of IV Dilaudid.?? After that she will be discharged home. ??No medication changes were made during this hospitalization. ??Patient was encouraged to??be compliant with her outpatient dialysis schedules. ?? Physical examination : GENERAL: In no apparent distress HEENT: Head normocephalic, PERRL,Moist mucous membrane. Neck supple CARDIOVASCULAR: Normal rate and rhythm, no murmurs, no rubs, no gallops RESPIRATORY: Lungs clear to auscultation, no wheezes , no crackles ABDOMEN/GI: Nondistended, soft, nontender, normal bowel sounds EXTREMITIES: No pitting edema HYDRAULIC PLUMBER: Alert and oriented x 3.Non focal neuro exam. ? Pending Results Anti-HBS Quant ordered on 04/16/2025 Hepatitis B Core Ab ordered on 04/16/2025 Hepatitis B Core Ab IgM ordered on 04/16/2025 Hepatitis B Surface Antigen ordered on 04/16/2025 Quantiferon TB 1 Tube ordered on 04/16/2025 Follow-Up Appointments Added Follow Up ?Time Frame ?Comments Marlo AKINS, Antonio?1 to 2 weeks Post Discharge Care Discharge ?04/16/25 13:51:00 EST ?Order Comment:?? Discharge Prescriptions ?None, 04/15/25 17:27:00 EST ?Order Comment:?? Home Health Face to Face ^HomeHealthFTF Results Discharge Labs BACTERIOLOGY Blood Culture Results Preliminary report ()?? 04/15/2025 10:58 Blood Culture Specimen Source BLOOD ()?? 04/15/2025 10:58 Blood Culture Isolate 1 Comment ()?? 04/15/2025 10:58 Blood Cult 2 Results Preliminary report ()?? 04/15/2025 10:04 Blood Culture 2 Specimen Source BLOOD ()?? 04/15/2025 10:04 Blood Culture 2 Isolate 1 Comment ()?? 04/15/2025 10:04 ?? BLOOD COUNT & DIFF WBC 5.7 k/mm3 ()?? 04/16/2025 07:54 RBC 2.71 m/mm3 (Low)?? 04/16/2025 07:54 Hgb 8.0 Gm/dL (Low)?? 04/16/2025 07:54 Hct 25.8 % (Low)?? 04/16/2025 07:54 MCV 95.2 femtoliters ()?? 04/16/2025 07:54 MCH 29.5 pg ()?? 04/16/2025 07:54 MCHC 31.0 Gm/dL (Low)?? 04/16/2025 07:54 Platelet Count 166 k/mm3 ()?? 04/16/2025 07:54 RDW-SD 53.9 femtoliters (High)?? 04/16/2025 07:54 MPV 10.3 femtoliters ()?? 04/16/2025 07:54 Nucleated RBC (Automated) 0.0 #/100 WBC'S ()?? 04/16/2025 07:54 Abs. NRBC 0.0 k/mm3 ()?? 04/16/2025 07:54 Abs. Neut 3.8 k/mm3 ()?? 04/15/2025 06:57 Abs. Lymph 0.9 k/mm3 ()?? 04/15/2025 06:57 Abs. Jackson 0.5 k/mm3 ()?? 04/15/2025 06:57 Abs. Eo 0.4 k/mm3 ()?? 04/15/2025 06:57 Abs. Baso 0.1 k/mm3 ()?? 04/15/2025 06:57 Neut % 67.3 % ()?? 04/15/2025 06:57 Lymph % 15.2 % ()?? 04/15/2025 06:57 Jackson % 9.0 % ()?? 04/15/2025 06:57 Eos % 7.0 % (High)?? 04/15/2025 06:57 Baso % 1.1 % ()?? 04/15/2025 06:57 Imm Gran 0.4 % ()?? 04/15/2025 06:57 Abs. Imm Gran 0.0 k/mm3 ()?? 04/15/2025 06:57 ?? CARDIAC High Sensitivity Troponin (HSTnT) 73 ng/L (Critical)?? 04/15/2025 10:04 ? CHEM GENERAL Sodium 134 mmol/L ()?? 04/16/2025 06:48 Potassium 5.0 mmol/L ()?? 04/16/2025 06:48 Chloride 94 mmol/L (Low)?? 04/16/2025 06:48 Bicarbonate Level 26 mmol/L ()?? 04/16/2025 06:48 Anion Gap 14 mmol/L ()?? 04/16/2025 06:48 Glucose Level 156 mg/dL (High)?? 04/16/2025 06:48 BUN 38 mg/dL (High)?? 04/16/2025 06:48 Creatinine-Blood 8.02 mg/dL (High)?? 04/16/2025 06:48 Estimated GFR Creatinine 6 ML/MIN/1.73 M2 ()?? 04/16/2025 06:48 Calcium 7.6 mg/dL (Low)?? 04/16/2025 06:48 ?? HEME OTHER Hold Blue Top SPECIMEN DISCARDED AFTER 4 HOURS. ()?? 04/15/2025 06:57 ? MISC. CHEMISTRY Hold Pham Top SPECIMEN DISCARDED AFTER 1 WEEK ()?? 04/15/2025 10:04 ? URINE OTHER Est Creatinine Clearance 8.54 mL/min ()?? 04/16/2025 08:30 ? 30_ minutes spent on discharge Electronically Signed on 04/16/25 01:55 PM Pham AKINS, Luz Cristina RN, Amy: PERFORM Event Display: Patient Education/Instruction Authored Date: [id number] Inpatient Adult Discharge Instructions. [address] [id number] Name: HIMA MORRIS : 1985?? Visit: 04/15/2025 06:22?? Current Date: 04/16/2025 14:28 ?? Account: [id number]?? Inpatient Adult Discharge Instructions We would like to thank you for allowing us to assist you with your healthcare needs. The following includes patient education materials and information regarding your injury/illness. Our entire staffstrives to provide an excellent experience for our patients and their families. PLEASE ENSURE YOU FOLLOW-UP PER THE INSTRUCTIONS BELOW! ?? YOUR OPINION IS IMPORTANT TO US! Please complete the survey you may receive by mail or email. Your feedback will be used to make improvements to the healthcare experiences of our patients and their families. Surveys are administered by [employer] ?? If further treatment with your primary care physician or another doctor is recommended, it is important for you to keep the appointment. Call your primary care physician or return to the Emergency Department immediately if your condition worsens, fails to improve, or new symptoms develop. If you need to find a doctor, you can call [facility] for a referral at [phone] or toll free at [phone] ([phone]) or log in to [email or web address].. ?? [facility], in keeping with [facility] guidance, no longer requires face masks for staff, patientsor visitors in most situations. Similiar to time spent indoors at other locations, there is the chance that you were exposed to repiratory viruses during your time with us (such as flu or COVID-19). If you develop symptoms concerning for a viral respiratory infection, please seek testing (and treatment if indicated) from your medical provider or home test kit. ?? You can view and manage your care through the patient portal or by using a health care jaiden of your choosing. [employer] is a website that allows you to securely view your medical information including your hospital discharge summary, office visit summaries, medications and follow-up visits. You can also request appointments, renew medications, and request access to your medical information using a health care jaiden of your choosing, or just ask a question. You are entitled to know the individuals who participated in your treatment. This information is available within your medical record and will be provided upon your request. You can enroll at [email or web address] or register d uring your next office visit. You have been discharged from [facility], Patient Care Unit: D3B??. If you have any questions regarding these instructions, including results of studies pending, afteryou leave, please call us and we will be happy to assist you 23/12. [facility] Your Care Team Attending Physician Luz Nath MD?? Consulting Providers Luz Nath MD?? Discharging Providers Luz Nath MD Reason for Your Visit dialysis?? Your Diagnosis Chest pain Tests Performed Below is a partial list of the tests performed during your hospitalization. You may have had other tests and procedures not included in this list. Please discuss all test results with your provider. Basic Metabolic Panel Blood Culture Blood Culture #2 Blood Culture 2 Results Blood Culture Result CBC CBC w/ Differential Hepatitis B Core Ab?-- Results Pending -- Hepatitis B Core Ab IgM?-- Results Pending -- Hepatitis B Surface Antibody, Quant?-- Results Pending -- Hepatitis B Surface Antigen?-- Results Pending -- High??Sensitivity??Troponin T Hold Blue Top Tube HOLD PHAM TUBE Quantiferon TB 1 Tube?-- Results Pending -- XR Chest 2 Views Frontal and Lat Anti-HBS Quant (Hepatitis B Surface Antibody, Quant)?? Basic Metabolic Panel?? Blood Culture?? Blood Culture #2?? Blood Culture 2 Results?? Blood Culture Result?? CBC?? CBC w/ Differential?? Hepatitis B Core Ab?? Hepatitis B Core Ab IgM?? Hepatitis B Surface Antigen?? High??Sensitivity??Troponin T?? Hold Blue Top Tube?? Hold Pham Top Tube (HOLD PHAM TUBE)?? Quantiferon TB 1 Tube?? Chest 2 Views Frontal and Lat (XR Chest 2 Views Frontal and Lat)?? Primary Care Provider Antonio Sellers MD? Advance Directive Health Care Proxy on File Yes - Health Care Proxy Discharge Vitals Temperature: 98.2 DegF Height: 165 cm Pulse Rate:??94 bpm??High Weight: 66.1 kg Respiratory Rate: 18 br/min Body Mass Index: 24.28 kg/m2 Systolic Blood Pressure:??158 mm Hg??High Body surface area: 1.74 Systolic Blood Pressure:??152 mm Hg??High ?? Systolic Blood Pressure:??158 mm Hg??High ?? Diastolic Blood Pressure: 73 mm Hg ?? Diastolic Blood Pressure: 73 mm Hg ?? Diastolic Blood Pressure: 73 mm Hg ?? Oxygen Saturation: 100 % ?? Studies Pending All studies ordered during this hospital stay have been completed unless listed below. Please discuss all pending results with your provider listed above in these instructions. ?? Anti-HBS Quant (Hepatitis B Surface Antibody, Quant)?? Hepatitis B Core Ab?? Hepatitis B Core Ab IgM?? Hepatitis B Surface Antigen?? Quantiferon TB 1 Tube?? What to do next Instructions From Your Doctor ?? Orders? 04/16/25 13:51:00 EST?? Prescriptions??, ??04/15/25 17:27:00 EST?? Scheduled Follow-Up Appointments Friday2025 11:00 AM EST ?? Type: Return With: Antonio Sellers MD Where: [facility] [address] [place] [address]- Status: Pending You Need to Schedule the Following Appointments Follow Up with??Antonio Sellers MD When:Within 1 to 2 weeks Where: Discharge Medications HIMA MORRIS :1985 Visit Date:04/15/2025 Medications: Please continue your medications until treatment is completed or stopped by your provider. Medications not listed below should be discontinued. Discuss any questions related to medications with your provider. What How Much When Why Instructions Next Dose Unchanged Acetaminophen (acetaminophen 325 mg oral tablet) 975 Milligram Oral Every 6 hours Ordering Physician: Noelle Clemente NP 8pm Unchanged Albuterol (Albuterol (Eqv-Ventolin HFA) 90 mcg/ inh inhalation aerosol) 2 puff(s) Inhalation Every 6 hours Asthma Duration: 30 Days Ordering Physician: Natalio Haley MD 8pm Unchanged Calcitriol (calcitriol 0.25 mcg oral capsule) 0.25 Microgram Oral Daily Duration: 30 Days Ordering Physician: Rosas Sawant MD 8am on 04/17 Unchanged Carvedilol (carvedilol 25 mg oral tablet) 1 tab(s) Oral Twice a day 8pm Unchanged Cholecalciferol (cholecalciferol 2000 intl units oral tablet) 1 tab(s) Oral Daily Duration: 30 Days Ordering Physician: Rosas Sawant MD 8am on 04/17 Unchanged ferric citrate (Auryxia 210 mg oral tablet) Special Instructions: TAKE 2 TABLETS BY MOUTH 3 TIMES DAILY AND 1 TABLET WITH A SNACK ?? As directed Unchanged Fluticasone-Salmeterol (Advair HFA 230 mcg / 21 mcg) 2 puff(s) Inhalation Twice a day Asthma, severe persistent Ordering Physician: Faizan Morel MD As directed Unchanged levETIRAcetam (levETIRAcetam 250 mg oral tablet) 1 tab(s) Oral Daily in the morning Duration: 90 Days Special Instructions: On dialysis days after HD Ordering Physician: Gómez Novoa II ?? 8am on 04/17 Unchanged levETIRAcetam (levETIRAcetam 250 mg oral tablet) 500 Milligram Oral Daily in the morning Ordering Physician: Casey Wells DO 8am on 04/17 Unchanged Minoxidil (minoxidil 2.5 mg oral tablet) 3 tab(s) Oral Daily 8am on 04/17 Unchanged Miscellaneous Rx (VITAMIN D3 2,000 UNIT TABLET) Special Instructions: TAKE 1 TABLET BY MOUTH EVERY DAY ?? 8am on 04/17 Unchanged NIFEdipine (NIFEdipine 60 mg oral tablet, extended release) 1 tab(s) Oral Twice a day 8pm Unchanged Oxycodone (oxyCODONE 15 mg oral tablet) 1 tab(s) Oral Every 4 hours as needed for as needed for pain Duration: 28 Days Ordering Physician: Antonio Sellers MD 715pm Unchanged Pantoprazole (pantoprazole 40 mg oral delayed release tablet) 1 tab(s) Oral Daily Duration: 90 Days Ordering Physician: Antonio Sellers MD 8am on 04/17 Prescription Given During Visit No new medications prescribed at time of discharge.?? Laboratory Results Below is a partial list of the most recent Laboratory test results done prior to this discharge. You may have had other tests and procedures not included in this list. Please discuss all test resultswith your provider. Est Creatinine Clearance - 8.54 mL/min (04/16/2025) Basic Metabolic Panel (04/16/2025) ???Sodium - 134 mmol/L???Potassium - 5.0 mmol/L???Chloride - 94 mmol/L???Bicarbonate Level - 26 mmol/L???Anion Gap - 14 mmol/L???Glucose Level - 156 mg/dL???BUN - 38 mg/dL???Creatinine-Blood - 8.02 mg/dL???Estimated GFR Creatinine - 6 ML/MIN/1.73 M2???Calcium - 7.6 mg/dL Blood Culture (04/15/2025) ???Blood Culture Results - Preliminary report???Blood Culture Specimen Source - BLOOD Blood Culture #2 (04/15/2025) ???Blood Cult 2 Results - Preliminary report???Blood Culture 2 Specimen Source - BLOOD Blood Culture 2 Results (04/15/2025) ???Blood Culture 2 Isolate 1 - Comment Blood Culture Result (04/15/2025) ???Blood Culture Isolate 1 - Comment CBC (04/16/2025) ???WBC - 5.7 k/mm3???RBC - 2.71 m/mm3???Hgb - 8.0 Gm/dL???Hct - 25.8 %???MCV - 95.2 femtoliters???MCH - 29.5 pg???MCHC - 31.0 Gm/dL???Platelet Count - 166 k/mm3???RDW-SD - 53.9 femtoliters???MPV - 10.3 femtoliters???Nucleated RBC (Automated) - 0.0 #/100 WBC'S???Abs. NRBC - 0.0 k/mm3 CBC w/ Differential (04/15/2025) ???WBC - 5.6 k/mm3???RBC - 2.62 m/mm3???Hgb - 8.0 Gm/dL???Hct - 25.3 %???MCV - 96.6 femtoliters???MCH - 30.5 pg???MCHC - 31.6 Gm/dL???Platelet Count - 166 k/mm3???RDW-SD - 53.1 femtoliters???MPV - 10.3 femtoliters???Nucleated RBC (Automated) - 0.0 #/100 WBC'S???Abs. NRBC - 0.0 k/mm3???Abs. Neut - 3.8 k/mm3???Abs. Lymph - 0.9 k/mm3???Abs. Jackson - 0.5 k/mm3???Abs. Eo - 0.4 k/mm3???Abs. Baso - 0.1 k/mm3???Neut % - 67.3 %???Lymph % - 15.2 %???Jackson % - 9.0 %???Eos % - 7.0 %???Baso % - 1.1 %???Imm Gran - 0.4 %???Abs. Imm Gran - 0.0 k/mm3 High??Sensitivity??Troponin T (04/15/2025) ???High Sensitivity Troponin (HSTnT) - 73 ng/L Hold Blue Top Tube (04/15/2025) ???Hold Blue Top - SPECIMEN DISCARDED AFTER 4 HOURS. HOLD PHAM TUBE (04/15/2025) ???Hold Pham Top - SPECIMEN DISCARDED AFTER 1 WEEK Allergies (NKA means No Known Allergies) gabapentin(Severe)??anaphylaxis isosorbide dinitrate(Severe) epoetin beta-methoxy polyethylene glycol (Persistent Severe)??Dyspnea, Eruption ANNA inhibitors??Unknown Adhesive Bandage Latex??Eruption, Itching Motrin Other Environmental Allergy??dye in benadryl Retacrit Sensipar amLODIPine??rash, Unknown angiotensin converting enzyme inhibitors??itchy, rash, Unknown beta blockers??Unknown cloNIDine??Anaphylaxis cloNIDine topical??chest pain doxazosin??no anaphylaxis, throat swelling furosemide??Eruption heparin hydrALAZINE??Anaphylaxis hydrOXYzine ibuprofen??Unknown labetalol??ithcing of eyes levoFLOXacin??Skin peeling and itchiness lisinopril??throat tightening losartan methocarbamol??Unknown metoprolol??Eruption penicillins??hives, C/O: itching, Swelling of throat predniSONE??Eruption, Other spironolactone??Rash, Itching, Swelling of breast traMADol??throat tightening valsartan??Tongue swelling, Itch, Facial swelling Problems Active Problems??(28) (HFpEF) heart failure with preserved ejection fraction?? Anemia due to chronic kidney disease?? Asthma, severe persistent?? Chronic hypoxemic respiratory failure?? Chronic kidney disease-mineral and bone disorder?? Chronic pain syndrome?? Cirrhosis?? Depressed mood?? Dysphagia?? Elevated troponin?? ESRD on hemodialysis TTS?? GERD (gastroesophageal reflux disease)?? Hemodialysis patient?? History of gastric ulcer?? Hyperlipidemia?? Hyperparathyroidism?? Hypertension?? Hypertensive urgency?? Hypocalcemia?? Moderate persistent asthma?? Nasolabial cyst, Left?? Pericardial effusion?? Pulmonary hypertension?? Restrictive lung disease?? Saphenous vein occlusion, right?? Seizure disorder?? Tricuspid regurgitation?? UTI (urinary tract infection)?? Education Materials Below is the list of Educational Leaflet Providered with your Discharge Instructions. Valuables and Belongings I fully understand and agree that [facility] accepts no responsibility for all my personal property including clothing, toilet articles, radios, jewelry, dentures, hearing aids, rings, money, or any other property that is in my possession or is brought to me after admission. I understand certain valuables may be placed in a hospital safe for a short period of time. I understand that the hospital is not liable for loss or damage due to accident, fire, or other natural occurrence while said property is in the safe. I accept full responsibility for any personal property that I keep with me, and will not hold the hospital responsible in case of loss or disappearance. I acknowledge that i have been encouraged to send valuables and belongings home. ?? Review of Valuable and Belonging List: With patient Date for Pt to Sign Valuables/Belongings: 04/15/25 18:53:00 ?? Other Discharge Information ? Pulmonary Rehab Status?? Pulmonary Rehab Discharge Status?? Respiratory Rate: 18 br/min ? Common Emergency Awareness Tips IS IT A STROKE? Act FAST and Check for these signs: FACE Does the face look uneven? ARM Does one arm drift down? SPEECH Does their speech sound strange? TIME Call at any sign of stroke ?? Heart Attack Signs Chest discomfort: Most heart attacks involve discomfort in the center of the chest and lasts more than a few minutes, or goes away and comes back. It can feel like uncomfortable pressure, squeezing, fullness or pain. Discomfort in upper body: Symptoms can include pain or discomfort in one or both arms, back, neck, jaw or stomach. Shortness of breath: With or without discomfort. Other signs: Breaking out in a cold sweat, nausea, or lightheaded. Remember, MINUTES DO MATTER. If you experience any of these heart attack warning signs, call to get immediate medical attention! ?? Smoking can increase your chances of developing chronic health problems and can cause harmful effects to other family members in your house. If you smoke, you are strongly encouraged to quit. Please call [employer] at [phone] or 3-000-633-80/20 [employer] (9684) or log in to [email or web address] for referrals to smoking cessation programs. ?? 296 Suicide & Crisis Lifeline is available 23/12 if you or someone you know needs to find a reason to keep living. By calling 988 you'll be connected to a skilled, trained counselor at a crisis center in your area. INPATIENT DISCHARGE INSTRUCTIONS SIGNATURE PAGE HIMA MORRIS Location:[facility] Registration Date and Time:04/15/2025 06:22 EST Primary Care Physician: Antonio Sellers MD, Attending Physician: Luz Nath MD, I HIMA MORRIS, have received the above patient education materials/instructions and have verbalized understanding. If ambulance or transport services are being used I further acknowledge being given a choice of service. ?? If you need to contact me, please call me at this number: . Patient/Rug Cleaner Name: Patient/Rug Cleaner Signature: Relationship to Patient: Witness Name/Signature: Date: * Toni Brewer MD: PERFORM Event Display: Discharge/Transfer Note Hospital Authored Date: [id number] Patient: ??HIMA MORRIS ? Age:??39 Years?Sex:??Female?:??1985?LOC:??[facility]?? Discharge Diagnosis: ESRD ?? HPI: This is a 39 year old woman with ESRD secondary to hypertensive renal disease who dialyzes on a??T/T/S schedule at??[facility]??via a L upper arm AV Fistula,??history of??large circumferential pericardial effusion (s/p pericardial drain placement for 20 days Jun-Jul 2023), chronic systolic heart failure with EF 45-50%, chronic??back pain with chronic narcotic dependence, interstitial lung disease, pulmonary hypertension on home O2, severe tricuspid regurgitation, presenting from her dialysis center because unable to do dialysis due to staffing shortage. ?? She reports ongoing chest pain, I admitted her for this complaint two weeks ago. She has an abrasion on her chest, was in [facility] and given cefpodoxime for possible cellulitis which she has completed. ?? She reported a fever to 101.6 which resolved with tylenol a few days ago at home. ?? In the ED: T 97.9 BP 187/100 HR 79 RR 18 O2 100% RA WBC 5.2 HGB 8.0 PLT 166 K 6.3 chemistry consistent with ESRD CXR unremarkable ?? ROS: As above, rest of full review negative. ?? PMH: Ongoing ?(HFpEF) heart failure with preserved ejection fraction ?Anemia due to chronic kidney disease ?Asthma, severe persistent ?Chronic hypoxemic respiratory failure ?Chronic kidney disease-mineral and bone disorder ?Chronic pain syndrome ?Cirrhosis ?Depressed mood ?Dysphagia ?ESRD on hemodialysis TTS ?Elevated troponin ?GERD (gastroesophageal reflux disease) ?Hemodialysis patient ?History of gastric ulcer ?Hyperlipidemia ?Hyperparathyroidism ?Hypertension ?Hypertensive urgency ?Hypocalcemia ?Moderate persistent asthma ?Nasolabial cyst, Left ?Pericardial effusion ?Pulmonary hypertension ?Restrictive lung disease ?Saphenous vein occlusion, right ?Seizure disorder ?Tricuspid regurgitation ? MEDS: Acetaminophen (acetaminophen 325 mg oral tablet)??975 Milligram By Mouth Every 6 hours Albuterol (Albuterol (Eqv-Ventolin HFA) 90 mcg/inh inhalation aerosol)??2 puff(s) Inhalation Every 6 hours for 30 Days Calcitriol (calcitriol 0.25 mcg oral capsule)??0.25 Microgram By Mouth Daily for 30 Days Carvedilol (carvedilol 25 mg oral tablet)??25 Milligram 1 tablet By Mouth 2 times a day Cholecalciferol (cholecalciferol 2000 intl units oral tablet)??1 tab(s) 50 Microgram By Mouth Dailyfor 30 Days ferric citrate (Auryxia 210 mg oral tablet)??TAKE 2 TABLETS BY MOUTH 3 TIMES DAILY AND 1 TABLET WITH A SNACK Fluticasone-Salmeterol (Advair HFA 230 mcg / 21 mcg)??2 puff(s) Inhalation 2 times a day levETIRAcetam (levETIRAcetam 250 mg oral tablet)??1 tab(s) 250 Milligram By Mouth Daily in AM for 90 Days On dialysis days after HD levETIRAcetam (levETIRAcetam 250 mg oral tablet)??500 Milligram By Mouth Daily in AM Minoxidil (minoxidil 2.5 mg oral tablet)??3 tab(s) 7.5 Milligram By Mouth Daily Miscellaneous Rx (VITAMIN D3 2,000 UNIT TABLET)??TAKE 1 TABLET BY MOUTH EVERY DAY NIFEdipine (NIFEdipine 60 mg oral tablet, extended release)??60 Milligram 1 tablet By Mouth 2 timesa day Oxycodone (oxyCODONE 15 mg oral tablet)??1 tab(s) 15 Milligram By Mouth Every 4 hours as needed as needed for pain for 28 Days Pantoprazole (pantoprazole 40 mg oral delayed release tablet)??1 tab(s) 40 Milligram By Mouth Dailyfor 90 Days ?? Social: Lives independently ?? EXAM: Temperature?97.7 ?(13:34) Systolic Blood Pressure?208 ?(17:14) Diastolic Blood Pressure?93 ?(17:14) Pulse?75 ?(17:30) SpO2?97?2L NC Respiratory Rate?18 ?(17:30) GEN: Comfortable in bed HEENT: Moist membranes HEART: Warm extremities CHEST: Scabbed abrasion on chest wall LUNGS: Breathing comfortably 2L NC ABD: Soft, nontender : No aaron EXT: Warm, no edema NEURO: Alert, oriented x3 PSYCH: Calm and cooperative ? Assessment and Plan: ?? # Chest pain Chronic pain, she attributes this to the abrasion on her chest which has scabbed, completed a course of cefpodoxime. Will continue her oxycodone 15mg Q4 hr prn. ?? # ESRD Missed HD today at her facility, completed a session here. Will discharge afterward. ?? # HTN Difficult to control, has allergies to all by nifedipine, minoxidil, carvedilol. Will not keep her for BP control. Electronically Signed on 04/15/25 05:37 PM Toni Brewer MD Patient Care team information Care Team Personnel Name: Jayleen Quintana RN Position: [facility] RN Member Role: Primary Care Nurse Name: Kiki Kahn RN Position: [facility] RN Member Role: Primary Care Nurse Name: Kelsey Saenz RN Position: [facility] RN Member Role: Primary Care Nurse Name: Saurabh Calixto RN Position: [facility] RN Member Role: Primary Care Nurse Name: Zuleika Saldivar RN Position: [facility] MIK Nurse Member Role: Primary Care Nurse Name: Caitlyn Mendoza RN Position: [facility] RN Member Role: Primary Care Nurse Name: Adrianne Schwab RN Position: [facility] RN Member Role: Primary Care Nurse Name: Liya Read RN Position: [facility] RN Member Role: Primary Care Nurse Name: Zainab Trejo RN Position: [facility] Outreach Member Role: Primary Care Nurse Name: Zoë Torres RN Position: [facility] RN Member Role: Primary Care Nurse Name: Catherine Emerson RN Position: [facility] RN Member Role: Primary Care Nurse Name: Lisa Polanco Position: [facility] RN Supv Member Role: Primary Care Nurse Name: Loren Shannon RN Position: [facility] SN RN Member Role: Primary Care Nurse Name: Man Perdue RN Position: [facility] RN Member Role: Primary Care Nurse Name: Sara Maya RN Position: [facility] RN Member Role: Primary Care Nurse Name: Casie Chung RN Position: [facility] Rad RN Member Role: Primary Care Nurse Name: Jenna Rodrigues RN Position: [facility] RN Member Role: Primary Care Nurse Name: Mariaa Parkinson RN Position: [facility] RN Member Role: Primary Care Nurse Name: Katrin Arriaza RN Position: [facility] RN Member Role: Primary Care Nurse Name: Vanessa Martínez Position: [facility] RN Member Role: Primary Care Nurse Name: Michelle Landers RN Position: [facility] RN Member Role: Primary Care Nurse Name: Lima Cedeño RN Position: [facility] RN Member Role: Primary Care Nurse Name: Cesar Archer RN Position: [facility] RN Member Role: Primary Care Nurse Name: Sabra Hanson RN Position: [facility] RN Member Role: Primary Care Nurse Name: Gwendolyn Maria RN Position: [facility] RN Member Role: Primary Care Nurse Name: Lisa Nieves RN Position: [facility] RN Member Role: Primary Care Nurse Name: Kelsie Atkinson RN Position: [facility] SN RN Member Role: Primary Care Nurse Name: Nelda Castillo Position: [facility] Outreach Member Role: Lifetime Consulting Physician Name: Ambika Brannon RN Position: [facility] RN Member Role: Primary Care Nurse Name: Shaun Summers RN Position: [facility] RN Member Role: Primary Care Nurse Name: Sylvester Teresa MD Position: [facility] Renal MD Member Role: Lifetime Consulting Physician Address: [address] [place] [address] [address] [place] [address]- Telecom: Name: Meliza Shelley Position: [facility] RN Member Role: Primary Care Nurse Name: Abhinav Gresham LPN Position: [facility] RN Member Role: Primary Care Nurse Name: Ashlee Maldonado RN Position: [facility] Outreach Member Role: Lifetime Consulting Physician Name: Zainab Lemon RN Position: [facility] RN Member Role: Primary Care Nurse Name: Audrey Marlow RN Position: [facility] RN Member Role: Primary Care Nurse Name: Elvis Laurent RN Position: [facility] RN Member Role: Primary Care Nurse Name: Skyler Muniz RN Position: [facility] RN Member Role: Primary Care Nurse Name: Horace Sky RN Position: [facility] RN Member Role: Primary Care Nurse Name: Rozina Bentley RN Position: [facility] RN Member Role: Primary Care Nurse Name: Nathaly Salvador RN Position: [facility] RN Member Role: Primary Care Nurse Name: Janice Mendes Position: [facility] Outreach Member Role: Lifetime Consulting Physician Name: Smita Ghotra RN Position: [facility] RN Member Role: Primary Care Nurse Name: Rashel Goodwin RN Position: [facility] RN Member Role: Primary Care Nurse Name: Abhinav Simeon RN Position: [facility] RN Member Role: Primary Care Nurse Name: Norma Martinez RN Position: [facility] RN Member Role: Primary Care Nurse Name: Juan Rivera RN Position: [facility] RN Member Role: Primary Care Nurse Name: Beverly Kramer RN Position: [facility] RN Member Role: Primary Care Nurse Name: Malgorzata Taylor RN Position: [facility] RN Member Role: Primary Care Nurse Name: Quynh Miguel RN Position: [facility] RN Member Role: Primary Care Nurse Name: Zuleika Bolden RN Position: [facility] RN Member Role: Primary Care Nurse Name: Mechelle Rodgers NP Position: [facility] Associate Professional Member Role: Lifetime Consulting Provider Address: [address] [place], [place] [address] [place] [address]- Telecom: Name: Kassie Fernandez RN Position: [facility] AMB Nurse Member Role: Primary Care Nurse Name: Tod Stone MD Position: [facility] Renal MD Member Role: Lifetime Consulting Physician Address: [address] [facility] [address] [facility] [address] Telecom: Name: Barbara Arvizu RN Position: [facility] RN Member Role: Primary Care Nurse Name: Angelique Garcia RN Position: [facility] ED RN W/OE and Tasks Member Role: Primary Care Nurse Name: Lita Sanchez RN Position: [facility] ED RN W/OE and Tasks Member Role: Primary Care Nurse Name: Lyla Wilson RN Position: [facility] RN Member Role: Primary Care Nurse Name: Maritza Hodge RN Position: [facility] RN Member Role: Primary Care Nurse Name: Wen Henderson RN Position: [facility] RN Member Role: Primary Care Nurse Name: Ayana Esteban RN Position: [facility] RN Member Role: Primary Care Nurse Name: Rogerio Arita RN Position: [facility] ED RN W/OE and Tasks Member Role: Primary Care Nurse Name: Angelita Hernández RN Position: [facility] SN RN Member Role: Primary Care Nurse Name: Leanne Cuba RN Position: [facility] RN Member Role: Primary Care Nurse Name: Blanca Estrada RN Position: [facility] RN Member Role: Primary Care Nurse Name: Malick Arechiga DO Position: [facility] Renal MD Member Role: Lifetime Consulting Physician Address: [address] [facility] [place] [place] [address] Telecom: Name: Sarah Khan RN Position: [facility] RN Member Role: Primary Care Nurse Name: Thea Butt RN Position: [facility] RN Member Role: Primary Care Nurse Name: Brandie Valentin RN Position: [facility] RN Member Role: Primary Care Nurse Name: Gómez Donovan III, RN Position: [facility] RN Member Role: Primary Care Nurse Name: Jannette Galloway RN Position: [facility] automobile glass technician Member Role: Dispatch Clerk Name: Areli Velazquez RN Position: [facility] RN Member Role: Primary Care Nurse Name: Mariza Chavez RN Position: [facility] RN Member Role: Primary Care Nurse Name: Romulo Vasquez RN Position: [facility] RN Member Role: Primary Care Nurse Name: Miguel Lazar Position: [facility] RN Member Role: Primary Care Nurse Name: Kimberly Bentley Position: [facility] RN Member Role: Primary Care Nurse Name: Lili Jeter RN Position: [facility] RN Member Role: Primary Care Nurse Name: Martin Anthony RN Position: [facility] RN Member Role: Primary Care Nurse Name: Ace Clark RN Position: [facility] RN Member Role: Primary Care Nurse Name: Maribel Guerrero RN Position: [facility] RN Member Role: Primary Care Nurse Name: Maxine Hooks RN Position: [facility] RN Member Role: Primary Care Nurse Name: Titus Stark MD Position: [facility] Renal MD Member Role: Lifetime Consulting Physician Address: [address] [place] [address] [address] [facility] [address] Telecom: Name: Shelby Hernandez RN Position: [facility] RN Member Role: Primary Care Nurse Name: Jamaica Marquez RN Position: [facility] RN Member Role: Primary Care Nurse Name: Ambika Fabian RN Position: [facility] RN Member Role: Primary Care Nurse Name: Cassandra Flores RN Position: [facility] RN Member Role: Primary Care Nurse Name: Claudia Pop LPN Position: [facility] RN Member Role: Primary Care Nurse Name: Binu Sharma RN Position: [facility] RN Member Role: Primary Care Nurse Name: Mechelle Carter LPN Position: [facility] RN Member Role: Primary Care Nurse Name: Rena Field RN Position: [facility] RN Member Role: Primary Care Nurse Name: Emir [INSTR] Dee MCKEON Position: [facility] RN Member Role: Primary Care Nurse Name: Jacy Menjivar RN Position: [facility] RN Member Role: Primary Care Nurse Name: Binu Townsend RN Position: [facility] RN Member Role: Primary Care Nurse Name: Kelsey Harding RN Position: [facility] RN Member Role: Primary Care Nurse Name: Geremias Larson RN Position: [facility] RN Member Role: Primary Care Nurse Name: Tamela Stevenson RN Position: [facility] ED RN W/OE and Tasks Member Role: Primary Care Nurse Name: Jean Mena RN Position: [facility] RN Member Role: Primary Care Nurse Name: Marion Morales RN Position: S RN Member Role: Primary Care Nurse Name: Antonio Sellers MD Position: [facility] Physician - Primary Care Member Role: PCP Address: [address] [facility] [place] [address]- Telecom: Name: Noelle Snider RN Position: [facility] SN RN Member Role: Primary Care Nurse Name: Pedro Perez RN Position: [facility] ED RN W/OE and Tasks Member Role: Primary Care Nurse Name: Zhen Vera MD Position: [facility] Renal MD Member Role: Lifetime Consulting Physician Address: [address] [facility] [address] [facility] [place] [address]- Telecom: Name: Cassie Galvez LPN Position: [facility] RN Member Role: Primary Care Nurse Name: Kenn Galvez RN Position: [facility] OB RN Member Role: Primary Care Nurse Name: Ashley Galvez RN Position: [facility] RN Member Role: Primary Care Nurse Name: Azra Hudson RN Position: [facility] RN Member Role: Primary Care Nurse Name: Nelda Mena RN Position: [facility] SN RN Member Role: Primary Care Nurse Name: Niko Johansen MD Position: [facility] SOFTWARE EDUCATOR MD Member Role: Lifetime SOFTWARE EDUCATOR Physician Address: [address] [facility] [place] [address]- Telecom: Name: Faizan Sotomayor RN Position: [facility] RN Member Role: Primary Care Nurse Name: Annamarie Armenta RN Position: [facility] RN Member Role: Primary Care Nurse Name: Mae Hyatt RN Position: [facility] RN Member Role: Primary Care Nurse Name: Richard Joy RN Position: [facility] RN Member Role: Primary Care Nurse Name: Tiki Murphy RN Position: S RN Member Role: Primary Care Nurse Name: Linnea Osorio RN Position: [facility] RN Member Role: Primary Care Nurse Name: Rekha Bonilla RN Position: [facility] RN Member Role: Primary Care Nurse Name: Tiki Tamayo LPN Position: [facility] RN Member Role: Primary Care Nurse Name: Aly Calloway RN Position: [facility] RN Member Role: Primary Care Nurse Name: Susie Alvarez RN Position: [facility] RN Member Role: Primary Care Nurse Name: Azra Rodriguez RN Position: [facility] RN Member Role: Primary Care Nurse Name: Penelope Reddy RN Position: [facility] RN Member Role: Primary Care Nurse Name: Sherley Bhatt RN Position: [facility] Onco RN Member Role: Primary Care Nurse Name: Colette Gallegos RN Position: [facility] RN Member Role: Primary Care Nurse Name: Zainab Fowler RN Position: [facility] RN Member Role: Primary Care Nurse Name: Jadyn Fowlre RN Position: [facility] RN Member Role: Primary Care Nurse Name: Charley Fowler RN Position: [facility] [employer] Sales Executive Member Role: Primary Care Nurse Name: Caroline Florence RN Position: [facility] SN RN Member Role: Primary Care Nurse Name: Keena Lopez RN Position: [facility] RN Member Role: Primary Care Nurse Name: Shilpa Lopez RN Position: [facility] RN Member Role: Primary Care Nurse Name: Randolph Ayon RN Position: [facility] RN Member Role: Primary Care Nurse Name: Ro Garza MD Position: [facility] Renal MD Member Role: Lifetime Consulting Physician Address: [address] [place] [address] [facility] [address] Telecom: Care Team Related Persons Name: ALVARO JIMENES Name: TANIYA MORRIS Name: CHRISTA MORRIS Name: JHONNY CANNON Name: ALVARO CASTRO Name: TANIYA SANTIAGO Insurance Providers Guarantor name: HIMA MORRIS Health Plan Information #: 1 Payer: MEDICARE B Payer Identifier: Member Number: [id number] Group Number: Subscriber Identifier: [id number] Relationship to Subscriber: self Coverage Type: NA Coverage Verification Date: NA Telecom: NA Address: Health Plan Information #: 2 Payer: [facility] Payer Identifier: Member Number: [id number] Group Number: NA Subscriber Identifier: [id number] Relationship to Subscriber: self Coverage Type: MEDICAID Coverage Verification Date: NA Telecom: NA Address: NA
--- OUTSIDE RECORDS SUMMARY | 2025-04-16 23:59 | XMS_ITS | Continuity of Care Document ---
Author Organization [facility][1] Adult and Pedi Address [address] [place] [address]- Care Team Providers Care Funds Transfer Clerk Name Role Phone Antonio Sellers MD Primary Care Physician Encounter [facility] Date(s): 03/17/25 - 04/16/25 [facility][1] Adult and Pedi [address] [place], [place] [address] Encounter Type: Triage Allergies, Adverse Reactions, Alerts Substance Criticality Severity [...] Other Environmental Allergy dye in benadryl Active Retacrit Active Motrin Active Adhesive Bandage Act grecia Sensipar Active epoetin beta-methoxy polyethylene glycol Unable to assess criticality Persistent Severe Dyspnea Eruption Active ANNA inhibitors Unknown Activ e cloNIDine [...] at other times without a problem 4Pruritis/rash Immunizations Given and Recorded Vaccine Date Status [...] 9:55:00 AM EDT, Route to Pharmacy Electronically, [facility]/pharmacy #[id number], Partial fill upon patient request if the prescription is for a schedule II opioid drug., 165, cm, 01/27/25 4:07:00 EDT, Height, 56, kg, 01/26/25 4:06:00 EDT, Dry Weight Start Date: 01/27/25 Status: Ordered Medication Dispense Status: Completed Quantity: 120.0 Unit: tablet Total Allowed Fills: 2 Fills Dispensed: 0 Advair HFA 230 mcg / 21 mcg 2 puffs, Inhalation, 2 times a day, # 12 Gm, 11 Refills, Maintenance, 03/02/25 4:27:00 PM EDT, Aerosol, [facility]/pharmacy #[id number], Partial fill upon patient request if the [...] 1 Refills, Maintenance, 01/21/25 10:45:00 AM EDT, [facility]/pharmacy #[id number], Partial fill upon patient request if [...] 0 Refills, Maintenance, 03/18/25 10:53:00 AM EDT, Capsule, [facility], Partial fill upon patient request if [...] 0 Refills, Maintenance, 03/18/25 10:30:00 AM EDT, [facility], Partial fill upon patient request if [...] 1 Refills, Maintenance, 01/06/25 7:21:00 AM EDT, [facility]/pharmacy #[id number], takes in addition to the keppra [...] Refills, Maintenance, 03/22/25 4:26:00 PM EDT, Tablet, [facility]/pharmacy #[id number], Partial fill upon patient request if [...] Total Allowed Fills: 1 Fills Dispensed: 0 Problem List Condition Confirmation Course Effective Dates [...] vein occlusion, right Confirmed Active 1on MRI Social History Social History Type Response Smoking Status Never smoker; Other: Pt. states she has never been a smoker; entered on: 02/15/16 Sexual Orientation Self described orien tation: ; Straight or heterosexual Sex Sex Representation Female (finding) Patient Care team information Care Team Personnel Name: Jayleen Quintana RN Position: [facility] RN Member Role: Primary Care Nurse Name: Kiki Kahn RN Position: [facility] RN Member Role: Primary Care Nurse Name: Kelsey Saenz RN Position: [facility] RN Member Role: Primary Care Nurse Name: Saurabh Calixto RN Position: [facility] RN Member Role: Primary Care Nurse Name: Zuleika Saldivar RN Position: [facility] AMB Nurse Member Role: Primary Care Nurse Name: Caitlyn Mendoza RN Position: [facility] RN Member Role: Primary Care Nurse Name: Adrianne Schwab RN Position: [facility] RN Member Role: Primary Care Nurse Name: Liya Read RN Position: [facility] RN Member Role: Primary Care Nurse Name: Zainab Trejo RN Position: [facility] Outreach Member Role: Primary Care Nurse Name: Zoë Torres RN Position: [facility] RN Member Role: Primary Care Nurse Name: Catherine Emerson RN Position: [facility] RN Member Role: Primary Care Nurse Name: Lisa Polanco Position: [facility] RN Supv Member Role: Primary Care Nurse Name: Loren Shannon RN Position: [facility] SN RN Member Role: Primary Care Nurse Name: Man Perdue RN Position: [facility] RN Member Role: Primary Care Nurse Name: Sara Maya RN Position: [facility] RN Member Role: Primary Care Nurse Name: Casie Chung RN Position: [facility] Rad RN Member Role: Primary Care Nurse Name: Jenna Rodrigues RN Position: [facility] RN Member Role: Primary Care Nurse Name: Mariaa Parkinson RN Position: [facility] RN Member Role: Primary Care Nurse Name: Katrin Arriaza RN Position: [facility] RN Member Role: Primary Care Nurse Name: Vanessa Martínez Position: [facility] RN Member Role: Primary Care Nurse Name: Michelle Landers RN Position: [facility] RN Member Role: Primary Care Nurse Name: Lima Cedeño RN Position: [facility] RN Member Role: Primary Care Nurse Name: Cesar Archer RN Position: [facility] RN Member Role: Primary Care Nurse Name: Sabra Hanson RN Position: [facility] RN Member Role: Primary Care Nurse Name: Gwendolyn Maria RN Position: [facility] RN Member Role: Primary Care Nurse Name: Lisa Nieves RN Position: [facility] RN Member Role: Primary Care Nurse Name: Kelsie Atkinson RN Position: [facility] SN RN Member Role: Primary Care Nurse Name: Nelda Castillo Position: [facility] Outreach Member Role: Lifetime Consulting Physician Name: Ambika Brannon RN Position: [facility] RN Member Role: Primary Care Nurse Name: Shaun Summers RN Position: [facility] RN Member Role: Primary Care Nurse Name: Sylvester Teresa MD Position: [facility] Renal MD Member Role: Lifetime Consulting Physician Address: [address] [place] [address] [address] [facility] [place], [place] [address] Telecom: Name: Meliza Shelley Position: [facility] RN Member Role: Primary Care Nurse Name: Abhinav Gresham LPN Position: [facility] RN Member Role: Primary Care Nurse Name: Ashlee Maldonado RN Position: [facility] Outreach Member Role: Lifetime Consulting Physician Name: Zainab Lemon RN Position: [facility] RN Member Role: Primary Care Nurse Name: Audrey Marlow RN Position: [facility] RN Member Role: Primary Care Nurse Name: Elvis Laurent RN Position: [facility] RN Member Role: Primary Care Nurse Name: Skyler Muniz RN Position: [facility] RN Member Role: Primary Care Nurse Name: Horace Sky RN Position: [facility] RN Member Role: Primary Care Nurse Name: Rozina Bentley RN Position: [facility] RN Member Role: Primary Care Nurse Name: Nathaly Salvador RN Position: [facility] RN Member Role: Primary Care Nurse Name: Janice Mendes Position: [facility] Outreach Member Role: Lifetime Consulting Physician Name: Smita Ghotra RN Position: [facility] RN Member Role: Primary Care Nurse Name: Rashel Goodwin RN Position: [facility] RN Member Role: Primary Care Nurse Name: Abhinav Simeon RN Position: [facility] RN Member Role: Primary Care Nurse Name: Norma Martinez RN Position: [facility] RN Member Role: Primary Care Nurse Name: Juan Rivera RN Position: [facility] RN Member Role: Primary Care Nurse Name: Beverly Kramer RN Position: [facility] RN Member Role: Primary Care Nurse Name: Malgorzata Taylor RN Position: [facility] RN Member Role: Primary Care Nurse Name: Quynh Miguel RN Position: [facility] RN Member Role: Primary Care Nurse Name: Zuleika Bolden RN Position: [facility] RN Member Role: Primary Care Nurse Name: Mechelle Rodgers NP Position: [facility] Associate Professional Member Role: Lifetime Consulting Provider Address: [address] [facility] [address] Telecom: Name: Kassie Fernandez RN Position: [facility] AMB Nurse Member Role: Primary Care Nurse Name: Tod Stone MD Position: [facility] Renal MD Member Role: Lifetime Consulting Physician Address: [address] [facility] [address] Telecom: Name: Barbara Arvizu RN Position: [facility] RN Member Role: Primary Care Nurse Name: Angelique Garcia RN Position: [facility] ED RN W/OE and Tasks Member Role: Primary Care Nurse Name: Lita Sanchez RN Position: [facility] ED RN W/OE and Tasks Member Role: Primary Care Nurse Name: Lyla Wilson RN Position: [facility] RN Member Role: Primary Care Nurse Name: Maritza Hodge RN Position: [facility] RN Member Role: Primary Care Nurse Name: Wen Henderson RN Position: [facility] RN Member Role: Primary Care Nurse Name: Ayana Esteban RN Position: [facility] RN Member Role: Primary Care Nurse Name: Rogerio Arita RN Position: [facility] ED RN W/OE and Tasks Member Role: Primary Care Nurse Name: Angelita Hernández RN Position: [facility] SN RN Member Role: Primary Care Nurse Name: Leanne Cuba RN Position: [facility] RN Member Role: Primary Care Nurse Name: Blanca Estrada RN Position: [facility] RN Member Role: Primary Care Nurse Name: Malick Arechiga DO Position: [facility] Renal MD Member Role: Lifetime Consulting Physician Address: [address] [facility] [place] [address]- Telecom: Name: Sarah Khan RN Position: [facility] RN Member Role: Primary Care Nurse Name: Thea Butt RN Position: [facility] RN Member Role: Primary Care Nurse Name: Brandie Valentin RN Position: [facility] RN Member Role: Primary Care Nurse Name: Gómez Donovan III, RN Position: [facility] RN Member Role: Primary Care Nurse Name: Jannette Galloway RN Position: [facility] environmental scientists Member Role: Energy Systems Engineer Name: rAeli Velazquez RN Position: [facility] RN Member Role: Primary Care Nurse Name: Mariza Chavez RN Position: [facility] RN Member Role: Primary Care Nurse Name: Romulo Vasquez RN Position: [facility] RN Member Role: Primary Care Nurse Name: Miguel Lazar Position: [facility] RN Member Role: Primary Care Nurse Name: Kimberly Bentley Position: [facility] RN Member Role: Primary Care Nurse Name: Lili Jeter RN Position: [facility] RN Member Role: Primary Care Nurse Name: Martin Anthony RN Position: [facility] RN Member Role: Primary Care Nurse Name: Ace Clark RN Position: [facility] RN Member Role: Primary Care Nurse Name: Maribel Guerrero RN Position: [facility] RN Member Role: Primary Care Nurse Name: Maxine Hooks RN Position: [facility] RN Member Role: Primary Care Nurse Name: Titus tSark MD Position: [facility] Renal MD Member Role: Lifetime Consulting Physician Address: [address] [facility] [place] [address]- [place] Telecom: Name: Shelby Hernandez RN Position: [facility] RN Member Role: Primary Care Nurse Name: Jamaica Marquez RN Position: [facility] RN Member Role: Primary Care Nurse Name: Ambika Fabian RN Position: [facility] RN Member Role: Primary Care Nurse Name: Cassandra Flores RN Position: [facility] RN Member Role: Primary Care Nurse Name: Claudia Pop LPN Position: [facility] RN Member Role: Primary Care Nurse Name: Binu Sharma RN Position: [facility] RN Member Role: Primary Care Nurse Name: Mechelle Carter LPN Position: [facility] RN Member Role: Primary Care Nurse Name: Rena Field RN Position: [facility] RN Member Role: Primary Care Nurse Name: Emir [INSTR] Dee MCKEON Position: [facility] RN Member Role: Primary Care Nurse Name: Jacy Menjivar RN Position: [facility] RN Member Role: Primary Care Nurse Name: Binu Townsend RN Position: [facility] RN Member Role: Primary Care Nurse Name: Kelsey Harding RN Position: [facility] RN Member Role: Primary Care Nurse Name: Geremias Larson RN Position: [facility] RN Member Role: Primary Care Nurse Name: Tamela Stevenson RN Position: [facility] ED RN W/OE and Tasks Member Role: Primary Care Nurse Name: Jean Mena RN Position: [facility] RN Member Role: Primary Care Nurse Name: Marion Morales RN Position: [facility] RN Member Role: Primary Care Nurse Name: Antonio Sellers MD Position: [facility] Physician - Primary Care Member Role: PCP Address: [address] [facility] [place], [place] [address] Telecom: Name: Noelle Snider RN Position: [facility] SN RN Member Role: Primary Care Nurse Name: Pedro Perez RN Position: [facility] ED RN W/OE and Tasks Member Role: Primary Care Nurse Name: Zhen Vear MD Position: [facility] Renal MD Member Role: Lifetime Consulting Physician Address: [address] [facility] [address] [facility] [place], [place] [address] Telecom: Name: Cassie Galvez LPN Position: [facility] RN Member Role: Primary Care Nurse Name: Kenn Galvez RN Position: [facility] OB RN Member Role: Primary Care Nurse Name: Ashley Galvez RN Position: [facility] RN Member Role: Primary Care Nurse Name: Azra Hudson RN Position: [facility] RN Member Role: Primary Care Nurse Name: Nelda Mena RN Position: [facility] SN RN Member Role: Primary Care Nurse Name: Niko Johansen MD Position: [facility] OPERATOR MD Member Role: Lifetime OPERATOR Physician Address: [address] [facility] [place] [address]- Telecom: Name: Faizan Sotomayor RN Position: [facility] RN Member Role: Primary Care Nurse Name: Annamarie Armenta RN Position: [facility] RN Member Role: Primary Care Nurse Name: Mae Hyatt RN Position: [facility] RN Member Role: Primary Care Nurse Name: Richard Joy RN Position: [facility] RN Member Role: Primary Care Nurse Name: Tiki Murphy RN Position: [facility] RN Member Role: Primary Care Nurse Name: Linnea Osorio RN Position: [facility] RN Member Role: Primary Care Nurse Name: Rekha Bonilla RN Position: [facility] RN Member Role: Primary Care Nurse Name: Tiki Tamayo LPN Position: [facility] RN Member Role: Primary Care Nurse Name: Aly Calloway RN Position: [facility] RN Member Role: Primary Care Nurse Name: Susie Alvarez RN Position: [facility] RN Member Role: Primary Care Nurse Name: Azra Rodriguez RN Position: [facility] RN Member Role: Primary Care Nurse Name: Penelope Reddy RN Position: [facility] RN Member Role: Primary Care Nurse Name: Sherley Bhatt RN Position: [facility] Onco RN Member Role: Primary Care Nurse Name: Colette Gallegos RN Position: [facility] RN Member Role: Primary Care Nurse Name: Zainab Fowler RN Position: [facility] RN Member Role: Primary Care Nurse Name: Jadyn Fowler RN Position: [facility] RN Member Role: Primary Care Nurse Name: Charley Fowler RN Position: [facility]iatric[facility] Physician Member Role: Primary Care Nurse Name: Caroline Florence RN Position: [facility] SN RN Member Role: Primary Care Nurse Name: Keena Lopez RN Position: [facility] RN Member Role: Primary Care Nurse Name: Shilpa Lopez RN Position: S RN Member Role: Primary Care Nurse Name: Randolph Ayon RN Position: S RN Member Role: Primary Care Nurse Name: Ro Garza MD Position: [facility] Renal MD Member Role: Lifetime Consulting Physician Address: [address] [facility] [address] Telecom: Care Team Related Persons Name: ALVARO JIMENES Name: TANIYA OROZCO Name: CHRISTA OROZCO Name: JHONNY CANNON Name: ALVARO CASTRO Name: TANIYA SANTIAGO Insurance Providers Guarantor name: HIMA OROZCO Health Plan Information #: 1 Payer: MEDICARE B Payer Identifier: [place] Member Number: [id number] Group Number: NA Subscriber Identifier: NA Relationship to Subscriber: self Coverage Type: NA Coverage Verification Date: NA Telecom: Address: Health Plan Information #: 2 Payer: [employer]ER [employer] Payer Identifier: [place] Member Number: [id number] Group Number: [place] Subscriber Identifier: NA Relationship to Subscriber: self Coverage Type: MEDICAID Coverage Verification Date: NA Telecom: Address:
--- OUTSIDE RECORDS SUMMARY | 2025-04-16 23:59 | XMS_ITS | Continuity of Care Document ---
Author Organization [facility] Address [address] [place] [address]- Care Team Providers Care Habilitative Interventionist Name Role Phone Antonio Sellers MD Primary Care [id number] Date(s): 03/07/25 - 04/16/25 [facility] [address] [place] [address]- Attending Physician: Antonio Sellers MD Encounter Type: Pre Office Visit Allergies, Adverse Reactions, Alerts Substance Criticality Severity [...] 9:55:00 AM EDT, Route to Pharmacy Electronically, [facility]/pharmacy #[id number], Partial fill upon patient request if the [...] Refills, Maintenance, 03/02/25 4:27:00 PM EDT, Aerosol, [facility]/pharmacy #[id number], Partial fill upon patient request if the [...] 1 Refills, Maintenance, 01/21/25 10:45:00 AM EDT, [facility]/pharmacy #[id number], Partial fill upon patient request [...] 0 Refills, Maintenance, 03/18/25 10:53:00 AM EDT, [facility], [facility], Partial fill upon patient [...] 0 Refills, Maintenance, 03/18/25 10:30:00 AM EDT, [facility] Partial fill upon patient request if [...] 1 Refills, Maintenance, 01/06/25 7:21:00 AM EDT, [facility]/pharmacy #[id number], takes in addition to the [...] Refills, Maintenance, 03/22/25 4:26:00 PM EDT, Tablet, [facility]/pharmacy #[id number], Partial fill upon patient request [...] Team Personnel Name: Jayleen Quintana RN Position: [facility] RN Member Role: Primary Care Nurse Name: Kiki Kahn RN Position: [facility] RN Member Role: Primary Care Nurse Name: Kelsey Saenz RN Position: [facility] RN Member Role: Primary Care Nurse Name: Saurabh Calixto RN Position: [facility] RN Member Role: Primary Care Nurse Name: Zuleika Saldivar RN Position: [facility] AMB Nurse Member Role: Primary Care Nurse Name: Caitlyn Mendoza RN Position: [facility] RN Member Role: Primary Care Nurse Name: Adrianne Schwab RN Position: [facility] RN Member Role: Primary Care Nurse Name: Liya Read RN Position: [facility] RN Member Role: Primary Care Nurse Name: Zainab Trejo RN Position: [facility] Outreach Member Role: Primary Care Nurse Name: Zoë Torres RN Position: [facility] RN Member Role: Primary Care Nurse Name: Catherine Emerson RN Position: [facility] RN Member Role: Primary Care Nurse Name: Lisa Polanco Position: [facility] RN Supv Member Role: Primary Care Nurse Name: Loren Shannon RN Position: [facility] SN RN Member Role: Primary Care Nurse Name: Man Perdue RN Position: [facility] RN Member Role: Primary Care Nurse Name: Sara Maya RN Position: [facility] RN Member Role: Primary Care Nurse Name: Casie Chung RN Position: [facility] Rad RN Member Role: Primary Care Nurse Name: Jenna Rodrigues RN Position: [facility] RN Member Role: Primary Care Nurse Name: Mariaa Parkinson RN Position: [facility] RN Member Role: Primary Care Nurse Name: Katrin Arriaza RN Position: [facility] RN Member Role: Primary Care Nurse Name: Vanessa Martínez Position: [facility] RN Member Role: Primary Care Nurse Name: Michelle Landers RN Position: [facility] RN Member Role: Primary Care Nurse Name: Lima Cedeño RN Position: [facility] RN Member Role: Primary Care Nurse Name: Cesar Archer RN Position: [facility] RN Member Role: Primary Care Nurse Name: Sabra Hanson RN Position: [facility] RN Member Role: Primary Care Nurse Name: Gwendolyn Maria RN Position: [facility] RN Member Role: Primary Care Nurse Name: Lisa Nieves RN Position: [facility] RN Member Role: Primary Care Nurse Name: Kelsie Atkinson RN Position: [facility] SN RN Member Role: Primary Care Nurse Name: Nelda Castillo Position: [facility] Outreach Member Role: Lifetime Consulting Physician Name: Ambika Brannon RN Position: [facility] RN Member Role: Primary Care Nurse Name: Shaun Summers RN Position: [facility] RN Member Role: Primary Care Nurse Name: Sylvester Teresa MD Position: [facility] Renal MD Member Role: Lifetime Consulting Physician Address: [address] [place] [address] [address] [facility] [place], [place] [address] Telecom: Name: Meliza Shelley Position: [facility] RN Member Role: Primary Care Nurse Name: Abhinav Gresham LPN Position: [facility] RN Member Role: Primary Care Nurse Name: Ashlee Maldonado RN Position: [facility] Outreach Member Role: Lifetime Consulting Physician Name: Zainab Lemon RN Position: [facility] RN Member Role: Primary Care Nurse Name: Audrey Marlow RN Position: [facility] RN Member Role: Primary Care Nurse Name: Elvis Laurent RN Position: [facility] RN Member Role: Primary Care Nurse Name: Skyler Muniz RN Position: [facility] RN Member Role: Primary Care Nurse Name: Horace Sky RN Position: [facility] RN Member Role: Primary Care Nurse Name: Rozina Bentley RN Position: [facility] RN Member Role: Primary Care Nurse Name: Nathaly Salvador RN Position: [facility] RN Member Role: Primary Care Nurse Name: Janice Mendes Position: [facility] Outreach Member Role: Lifetime Consulting Physician Name: Smita Ghotra RN Position: [facility] RN Member Role: Primary Care Nurse Name: Rashel Goodwin RN Position: [facility] RN Member Role: Primary Care Nurse Name: Abhinav Simeon RN Position: [facility] RN Member Role: Primary Care Nurse Name: Norma Martinez RN Position: [facility] RN Member Role: Primary Care Nurse Name: Juan Rivera RN Position: [facility] RN Member Role: Primary Care Nurse Name: Beverly Kramer RN Position: [facility] RN Member Role: Primary Care Nurse Name: Malgorzata Taylor RN Position: [facility] RN Member Role: Primary Care Nurse Name: Quynh Miguel RN Position: [facility] RN Member Role: Primary Care Nurse Name: Zuleika Bolden RN Position: [facility] RN Member Role: Primary Care Nurse Name: Mechelle Rodgers NP Position: [facility] Associate Professional Member Role: Lifetime Consulting Provider Address: [address] [place] [address] [address] [facility] [address] Telecom: Name: Kassie Fernandez RN Position: [facility] AMB Nurse Member Role: Primary Care Nurse Name: Tod Stone MD Position: [facility] Renal MD Member Role: Lifetime Consulting Physician Address: [facility] [address] [facility] [address] Telecom: Name: Barbara Arvizu RN Position: [facility] RN Member Role: Primary Care Nurse Name: Angelique Garcia RN Position: [facility] ED RN W/OE and Tasks Member Role: Primary Care Nurse Name: Lita Sanchez RN Position: [facility] ED RN W/OE and Tasks Member Role: Primary Care Nurse Name: Lyla Wilson RN Position: [facility] RN Member Role: Primary Care Nurse Name: Maritza Hodge RN Position: [facility] RN Member Role: Primary Care Nurse Name: Wen Henderson RN Position: [facility] RN Member Role: Primary Care Nurse Name: Ayana Esteban RN Position: [facility] RN Member Role: Primary Care Nurse Name: Rogerio Arita RN Position: [facility] ED RN W/OE and Tasks Member Role: Primary Care Nurse Name: Angelita Hernández RN Position: [facility] SN RN Member Role: Primary Care Nurse Name: Leanne Cuba RN Position: [facility] RN Member Role: Primary Care Nurse Name: Blanca Estrada RN Position: [facility] RN Member Role: Primary Care Nurse Name: Malick Arechiga DO Position: [facility] Renal MD Member Role: Lifetime Consulting Physician Address: [address] [facility] [address] [facility] [place] [address]- Telecom: Name: Sarah Khan RN Position: [facility] RN Member Role: Primary Care Nurse Name: Thea Butt RN Position: [facility] RN Member Role: Primary Care Nurse Name: Brandie Valentin RN Position: [facility] RN Member Role: Primary Care Nurse Name: Gómez Donovan III, RN Position: [facility] RN Member Role: Primary Care Nurse Name: Jannette Galloway RN Position: [facility] drying machine back tender Member Role: Pantograph Machine Operator Name: Areli Velazquez RN Position: [facility] RN Member Role: Primary Care Nurse Name: Mariza Chavez RN Position: [facility] RN Member Role: Primary Care Nurse Name: Romulo Vasquez RN Position: [facility] RN Member Role: Primary Care Nurse Name: Miguel Lazar Position: [facility] RN Member Role: Primary Care Nurse Name: Kimberly Bentley Position: [facility] RN Member Role: Primary Care Nurse Name: Lili Jeter RN Position: [facility] RN Member Role: Primary Care Nurse Name: Martin Anthony RN Position: [facility] RN Member Role: Primary Care Nurse Name: Ace Clark RN Position: [facility] RN Member Role: Primary Care Nurse Name: Maribel Guerrero RN Position: [facility] RN Member Role: Primary Care Nurse Name: Maxine Hooks RN Position: [facility] RN Member Role: Primary Care Nurse Name: Titus Stark MD Position: [facility] Renal MD Member Role: Lifetime Consulting Physician Address: [address] [facility] [place] [address]- Telecom: Name: Shelby Hernandez RN Position: [facility] RN Member Role: Primary Care Nurse Name: Jamaica Marquez RN Position: [facility] RN Member Role: Primary Care Nurse Name: Ambika Fabian RN Position: [facility] RN Member Role: Primary Care Nurse Name: Cassandra Flores RN Position: [facility] RN Member Role: Primary Care Nurse Name: Claudia Pop LPN Position: [facility] RN Member Role: Primary Care Nurse Name: Binu Sharma RN Position: [facility] RN Member Role: Primary Care Nurse Name: Mechelle Carter LPN Position: [facility] RN Member Role: Primary Care Nurse Name: Rena Field RN Position: [facility] RN Member Role: Primary Care Nurse Name: Emir [INSTR] Dee MCKEON Position: [facility] RN Member Role: Primary Care Nurse Name: Jacy Menjivar RN Position: [facility] RN Member Role: Primary Care Nurse Name: Binu Townsend RN Position: [facility] RN Member Role: Primary Care Nurse Name: Kelsey Harding RN Position: [facility] RN Member Role: Primary Care Nurse Name: Geremias Larson RN Position: [facility] RN Member Role: Primary Care Nurse Name: Tamela Stevenson RN Position: [facility] ED RN W/OE and Tasks Member Role: Primary Care Nurse Name: Jean Mena RN Position: [facility] RN Member Role: Primary Care Nurse Name: Marion Morales RN Position: [facility] RN Member Role: Primary Care Nurse Name: Antonio Sellers MD Position: [facility] Physician - Primary Care Member Role: PCP Address: [address] [facility] [address] Telecom: Name: Noelle Snider RN Position: [facility] SN RN Member Role: Primary Care Nurse Name: Pedro Perez RN Position: [facility] ED RN W/OE and Tasks Member Role: Primary Care Nurse Name: Zhen Vera MD Position: [facility] Renal MD Member Role: Lifetime Consulting Physician Address: [address] [facility] [address] [facility] [place] [place] [address] Telecom: Name: Cassie Galvez LPN Position: [facility] RN Member Role: Primary Care Nurse Name: Kenn Galvez RN Position: [facility] OB RN Member Role: Primary Care Nurse Name: Ashley Galvez RN Position: [facility] RN Member Role: Primary Care Nurse Name: Azra Hudson RN Position: [facility] RN Member Role: Primary Care Nurse Name: Nelda Mena RN Position: [facility] SN RN Member Role: Primary Care Nurse Name: Niko Johansen MD Position: [facility] GRADE CHECKER MD Member Role: Lifetime GRADE CHECKER Physician Address: [address] [place] [address]'s [facility] [place] [address]- Telecom: Name: Faizan Sotomayor RN Position: [facility] RN Member Role: Primary Care Nurse Name: Annamarie Armenta RN Position: [facility] RN Member Role: Primary Care Nurse Name: Mae Hyatt RN Position: [facility] RN Member Role: Primary Care Nurse Name: Richard Joy RN Position: [facility] RN Member Role: Primary Care Nurse Name: Tiki Murphy RN Position: [facility] RN Member Role: Primary Care Nurse Name: Linnea Osorio RN Position: [facility] RN Member Role: Primary Care Nurse Name: Rekha Bonilla RN Position: [facility] RN Member Role: Primary Care Nurse Name: Tiki Tamayo LPN Position: [facility] RN Member Role: Primary Care Nurse Name: Aly Calloway RN Position: [facility] RN Member Role: Primary Care Nurse Name: Susie Alvarez RN Position: [facility] RN Member Role: Primary Care Nurse Name: Azra Rodriguez RN Position: [facility] RN Member Role: Primary Care Nurse Name: Penelope Reddy RN Position: [facility] RN Member Role: Primary Care Nurse Name: Sherley Bhatt RN Position: [facility] Onco RN Member Role: Primary Care Nurse Name: Colette Gallegos RN Position: [facility] RN Member Role: Primary Care Nurse Name: Zainab Fowler RN Position: [facility] RN Member Role: Primary Care Nurse Name: Jadyn Fowler RN Position: [facility] RN Member Role: Primary Care Nurse Name: Charley Fowler RN Position: [facility] Hospital Assignment Agent Member Role: Primary Care Nurse Name: Caroline Florence RN Position: [facility] SN RN Member Role: Primary Care Nurse Name: Keena Lopez RN Position: S RN Member Role: Primary Care Nurse Name: Shilpa Lopez RN Position: S RN Member Role: Primary Care Nurse Name: Randolph Ayon RN Position: S RN Member Role: Primary Care Nurse Name: Ro Garza MD Position: [facility] Renal MD Member Role: Lifetime Consulting Physician Address: [address] [place] [address] [facility] [address] Telecom: Care Team Related Persons Name: ALVARO JIMENES Name: TANIYA OROZCO Name: CHRISTA OROZCO Name: JHONNY CANNON Name: ALVARO CASTRO Name: TANIYA SANTIAGO Insurance Providers Guarantor name: HIMA OROZCO Health Plan Information #: 1 Payer: MEDICARE B Payer Identifier: [place] Member Number: [id number] Group Number: Subscriber Identifier: [id number] Relationship to Subscriber: self Coverage Type: NA Coverage Verification Date: NA Telecom: NA Address: Health Plan Information #: 2 Payer: [employer], [place] [employer] Payer Identifier: Member Number: [id number] Group Number: Subscriber Identifier: [id number] Relationship to Subscriber: self Coverage Type: MEDICAID Coverage Verification Date: NA Telecom: NA Address:
--- OUTSIDE RECORDS SUMMARY | 2025-04-16 23:59 | XMS_ITS | Continuity of Care Document ---
Author Organization [facility] Address [address] [place] [address]- Care Team Providers Care Clinic Supervisor Name Role Phone Antonio Sellers MD Primary Care Physician [place] [facility] [place]16/25 [facility] [address] [place], [place] [address] Encounter Type: Triage Allergies, Adverse Reactions, Alerts [...] Active lisinopril throat tightening Active hydrOXYzine Active gabapentin High criticality Severe anaphylaxis Active losartan 4 Active valsartan Tongue swelling Itch Facial swelling Active beta blockers Unknown Active penicillins hives C/O: itching Swelling of throat Active angiotensin converting enzyme inhibitors itchy, rash Unknown Active Adhesive Bandage Act grecia Latex Eruption Itching Active Other Environmental Allergy dye in benadryl Active epoetin beta-methoxy polyethylene glycol Unable to assess criticality Persistent Severe Dyspnea Eruption Active Retacrit Active Motrin Active Sensipar Active ANNA inhibitors Unknown Activ e [...] 9:55:00 AM EDT, Route to Pharmacy Electronically, [facility]/pharmacy #[id number], Partial fill upon patient request if the [...] Refills, Maintenance, 03/02/25 4:27:00 PM EDT, Aerosol, [facility]/pharmacy #[id number], Partial fill upon patient request if the [...] 1 Refills, Maintenance, 01/21/25 10:45:00 AM EDT, [facility]/pharmacy #[id number], Partial fill upon patient request [...] Refills, Maintenance, 03/18/25 10:53:00 AM EDT, Capsule, [facility], Partial fill upon patient request [...] 0 Refills, Maintenance, 03/18/25 10:30:00 AM EDT, [facility], Partial fill upon patient request if [...] 1 Refills, Maintenance, 01/06/25 7:21:00 AM EDT, [facility]/pharmacy #[id number], takes in addition to the [...] Refills, Maintenance, 03/22/25 4:26:00 PM EDT, Tablet, [facility]/pharmacy #[id number], Partial fill upon patient request [...] Team Personnel Name: Jayleen Quintana RN Position: [facility] RN Member Role: Primary Care Nurse Name: Kiki Kahn RN Position: [facility] RN Member Role: Primary Care Nurse Name: Kelsey Saenz RN Position: [facility] RN Member Role: Primary Care Nurse Name: Saurabh Calixto RN Position: [facility] RN Member Role: Primary Care Nurse Name: Zuleika Saldivar RN Position: [facility] AMB Nurse Member Role: Primary Care Nurse Name: Caitlyn Mendoza RN Position: [facility] RN Member Role: Primary Care Nurse Name: Adrianne Schwab RN Position: [facility] RN Member Role: Primary Care Nurse Name: Liya Read RN Position: [facility] RN Member Role: Primary Care Nurse Name: Zainab Trejo RN Position: [facility] Outreach Member Role: Primary Care Nurse Name: Zoë Torres RN Position: [facility] RN Member Role: Primary Care Nurse Name: Catherine Emerson RN Position: [facility] RN Member Role: Primary Care Nurse Name: Lisa Polanco Position: [facility] RN Supv Member Role: Primary Care Nurse Name: Loren Shannon RN Position: [facility] SN RN Member Role: Primary Care Nurse Name: Man Perdue RN Position: [facility] RN Member Role: Primary Care Nurse Name: Sara Maya RN Position: [facility] RN Member Role: Primary Care Nurse Name: Casie Chung RN Position: [facility] Rad RN Member Role: Primary Care Nurse Name: Jenna Rodrigues RN Position: [facility] RN Member Role: Primary Care Nurse Name: Mariaa Parkinson RN Position: [facility] RN Member Role: Primary Care Nurse Name: Katrin Arriaza RN Position: [facility] RN Member Role: Primary Care Nurse Name: Vanessa Martínez Position: [facility] RN Member Role: Primary Care Nurse Name: Michelle Landers RN Position: [facility] RN Member Role: Primary Care Nurse Name: Lima Cedeño RN Position: [facility] RN Member Role: Primary Care Nurse Name: Cesar Archer RN Position: [facility] RN Member Role: Primary Care Nurse Name: Sabra Hanson RN Position: [facility] RN Member Role: Primary Care Nurse Name: Gwendolyn Maria RN Position: [facility] RN Member Role: Primary Care Nurse Name: Lisa Nieves RN Position: [facility] RN Member Role: Primary Care Nurse Name: Kelsie Atkinson RN Position: [facility] SN RN Member Role: Primary Care Nurse Name: Nelda Castillo Position: [facility] Outreach Member Role: Lifetime Consulting Physician Name: Ambika Brannon RN Position: [facility] RN Member Role: Primary Care Nurse Name: Shaun Summers RN Position: [facility] RN Member Role: Primary Care Nurse Name: Sylvester Teresa MD Position: [facility] Renal MD Member Role: Lifetime Consulting Physician Address: [address] [place] [address] [address] [facility] [place], [place] [address] Telecom: Name: Meliza Shelley Position: [facility] RN Member Role: Primary Care Nurse Name: Abhinav Gresham LPN Position: [facility] RN Member Role: Primary Care Nurse Name: Ashlee Maldonado RN Position: [facility] Outreach Member Role: Lifetime Consulting Physician Name: Zainab Lemon RN Position: [facility] RN Member Role: Primary Care Nurse Name: Audrey Marlow RN Position: [facility] RN Member Role: Primary Care Nurse Name: Elvis Laurent RN Position: [facility] RN Member Role: Primary Care Nurse Name: Skyler Muniz RN Position: [facility] RN Member Role: Primary Care Nurse Name: Horace Sky RN Position: [facility] RN Member Role: Primary Care Nurse Name: Rozina Bentley RN Position: [facility] RN Member Role: Primary Care Nurse Name: Nathaly Salvador RN Position: [facility] RN Member Role: Primary Care Nurse Name: Janice Mendes Position: [facility] Outreach Member Role: Lifetime Consulting Physician Name: Smita Ghtora RN Position: [facility] RN Member Role: Primary Care Nurse Name: Rashel Goodwin RN Position: [facility] RN Member Role: Primary Care Nurse Name: Abhinav Simeon RN Position: [facility] RN Member Role: Primary Care Nurse Name: Norma Martinez RN Position: [facility] RN Member Role: Primary Care Nurse Name: Juan Rivera RN Position: [facility] RN Member Role: Primary Care Nurse Name: Beverly Kramer RN Position: [facility] RN Member Role: Primary Care Nurse Name: Malgorzata Taylor RN Position: [facility] RN Member Role: Primary Care Nurse Name: Quynh Miguel RN Position: [facility] RN Member Role: Primary Care Nurse Name: Zuleika Bolden RN Position: [facility] RN Member Role: Primary Care Nurse Name: Mechelle Rodgers NP Position: [facility] Associate Professional Member Role: Lifetime Consulting Provider Address: [facility] [address] [facility] [address] Telecom: Name: Kassie Fernandez RN Position: [facility] AMB Nurse Member Role: Primary Care Nurse Name: Tod Stone MD Position: [facility] Renal MD Member Role: Lifetime Consulting Physician Address: [facility] [address] [facility] [address] Telecom: Name: Barbara Arvizu RN Position: [facility] RN Member Role: Primary Care Nurse Name: Angelique Garcia RN Position: [facility] ED RN W/OE and Tasks Member Role: Primary Care Nurse Name: Lita Sanchez RN Position: [facility] ED RN W/OE and Tasks Member Role: Primary Care Nurse Name: Lyla Wilson RN Position: [facility] RN Member Role: Primary Care Nurse Name: Maritza Hodge RN Position: [facility] RN Member Role: Primary Care Nurse Name: Wen Henderson RN Position: [facility] RN Member Role: Primary Care Nurse Name: Ayana Esteban RN Position: [facility] RN Member Role: Primary Care Nurse Name: Rogerio Arita RN Position: [facility] ED RN W/OE and Tasks Member Role: Primary Care Nurse Name: Angelita Hernández RN Position: [facility] SN RN Member Role: Primary Care Nurse Name: Leanne Cuba RN Position: [facility] RN Member Role: Primary Care Nurse Name: Blanca Estrada RN Position: [facility] RN Member Role: Primary Care Nurse Name: Malick Arechiga DO Position: [facility] Renal MD Member Role: Lifetime Consulting Physician Address: [address] [facility] [place] [address]- Telecom: Name: Sarah Khan RN Position: [facility] RN Member Role: Primary Care Nurse Name: Thea Butt RN Position: [facility] RN Member Role: Primary Care Nurse Name: Brandie Valentin RN Position: [facility] RN Member Role: Primary Care Nurse Name: Gómez Donovan III, RN Position: [facility] RN Member Role: Primary Care Nurse Name: Jannette Galloway RN Position: [facility] laster hand Member Role: Technical Solutions Director Name: Areli Velazquez RN Position: [facility] RN Member Role: Primary Care Nurse Name: Mariza Chavez RN Position: [facility] RN Member Role: Primary Care Nurse Name: Romulo Vasquez RN Position: [facility] RN Member Role: Primary Care Nurse Name: Miguel Lazar Position: [facility] RN Member Role: Primary Care Nurse Name: Kimberly Bentley Position: [facility] RN Member Role: Primary Care Nurse Name: Lili Jeter RN Position: [facility] RN Member Role: Primary Care Nurse Name: Martin Anthony RN Position: [facility] RN Member Role: Primary Care Nurse Name: Ace Clark RN Position: [facility] RN Member Role: Primary Care Nurse Name: Maribel Guerrero RN Position: [facility] RN Member Role: Primary Care Nurse Name: Maxine Hooks RN Position: [facility] RN Member Role: Primary Care Nurse Name: Titus Stark MD Position: [facility] Renal MD Member Role: Lifetime Consulting Physician Address: [address] [facility] [place] [address]- [place] Telecom: Name: Shelby Hernandez RN Position: [facility] RN Member Role: Primary Care Nurse Name: Jamaica Marquez RN Position: [facility] RN Member Role: Primary Care Nurse Name: Ambika Fabian RN Position: [facility] RN Member Role: Primary Care Nurse Name: Cassandra Flores RN Position: [facility] RN Member Role: Primary Care Nurse Name: Claudia Pop LPN Position: [facility] RN Member Role: Primary Care Nurse Name: Binu Sharma RN Position: [facility] RN Member Role: Primary Care Nurse Name: Mechelle Carter LPN Position: [facility] RN Member Role: Primary Care Nurse Name: Rena Field RN Position: [facility] RN Member Role: Primary Care Nurse Name: Emir [INSTR] Dee MCKEON Position: [facility] RN Member Role: Primary Care Nurse Name: Jacy Menjivar RN Position: [facility] RN Member Role: Primary Care Nurse Name: Binu Townsend RN Position: [facility] RN Member Role: Primary Care Nurse Name: Kelsey Harding RN Position: [facility] RN Member Role: Primary Care Nurse Name: Geremias Larson RN Position: [facility] RN Member Role: Primary Care Nurse Name: Tamela Stevenson RN Position: [facility] ED RN W/OE and Tasks Member Role: Primary Care Nurse Name: Jean Mena RN Position: [facility] RN Member Role: Primary Care Nurse Name: Marion Morales RN Position: [facility] RN Member Role: Primary Care Nurse Name: Antonio Sellers MD Position: [facility] Physician - Primary Care Member Role: PCP Address: [address] [facility] [place], [place] [address] Telecom: Name: Noelle Snider RN Position: [facility] SN RN Member Role: Primary Care Nurse Name: Pedro Perez RN Position: [facility] ED RN W/OE and Tasks Member Role: Primary Care Nurse Name: Zhen Vera MD Position: [facility] Renal MD Member Role: Lifetime Consulting Physician Address: [address] [facility] [address] [facility] [place], [place] [address] Telecom: Name: Cassie Galvez LPN Position: [facility] RN Member Role: Primary Care Nurse Name: Kenn Galvez RN Position: [facility] OB RN Member Role: Primary Care Nurse Name: Ashley Galvez RN Position: [facility] RN Member Role: Primary Care Nurse Name: Azra Hudson RN Position: [facility] RN Member Role: Primary Care Nurse Name: Nelda Mena RN Position: [facility] SN RN Member Role: Primary Care Nurse Name: Niko Johansen MD Position: [facility] TRACKMAN MD Member Role: Lifetime TRACKMAN Physician Address: [address] [facility] [place] [address]- Telecom: Name: Faizan Sotomayor RN Position: [facility] RN Member Role: Primary Care Nurse Name: Annamarie Armenta RN Position: [facility] RN Member Role: Primary Care Nurse Name: Mae Hyatt RN Position: [facility] RN Member Role: Primary Care Nurse Name: Richard Joy RN Position: [facility] RN Member Role: Primary Care Nurse Name: Tiki Murphy RN Position: [facility] RN Member Role: Primary Care Nurse Name: Linnea Osorio RN Position: [facility] RN Member Role: Primary Care Nurse Name: Rekha Bonilla RN Position: [facility] RN Member Role: Primary Care Nurse Name: Tiki Tamayo LPN Position: [facility] RN Member Role: Primary Care Nurse Name: Aly Calloway RN Position: [facility] RN Member Role: Primary Care Nurse Name: Susie Alvarez RN Position: [facility] RN Member Role: Primary Care Nurse Name: Azra Rodriguez RN Position: [facility] RN Member Role: Primary Care Nurse Name: Penelope Reddy RN Position: [facility] RN Member Role: Primary Care Nurse Name: Sherley Bhatt RN Position: [facility] Onco RN Member Role: Primary Care Nurse Name: Colette Gallegos RN Position: [facility] RN Member Role: Primary Care Nurse Name: Zainab Fowler RN Position: [facility] RN Member Role: Primary Care Nurse Name: Jadyn Fowler RN Position: [facility] RN Member Role: Primary Care Nurse Name: Charley Fowler RN Position: [facility] Hospital Deputy Director Of Nursing Member Role: Primary Care Nurse Name: Caroline Florence RN Position: [facility] SN RN Member Role: Primary Care Nurse Name: Keena Lopez RN Position: [facility] RN Member Role: Primary Care Nurse Name: Shilpa Lopez RN Position: S RN Member Role: Primary Care Nurse Name: Randolph Ayon RN Position: S RN Member Role: Primary Care Nurse Name: Ro Garza MD Position: [facility] Renal MD Member Role: Lifetime Consulting Physician Address: [address] [facility] [address] Telecom: Care Team Related Persons Name: ALVARO JIMENES Name: TANIYA OROZCO Name: CHRISTA OROZCO Name: JHONNY CANNON Name: ALVARO CASTRO Name: TANIYA SANTIAGO Insurance Providers Guarantor name: HIMA OROZCO Health Plan Information #: 1 Payer: MEDICARE B Payer Identifier: [place] Member Number: [id number] Group Number: NA Subscriber Identifier: NA Relationship to Subscriber: self Coverage Type: NA Coverage Verification Date: NA Telecom: Address: Health Plan Information #: 2 Payer: [employer] Payer Identifier: [place] Member Number: [id number] Group Number: [id number] Subscriber Identifier: NA Relationship to Subscriber: self Coverage Type: MEDICAID Coverage Verification Date: NA Telecom: Address:
--- OUTSIDE RECORDS SUMMARY | 2025-04-17 23:59 | XMS_ITS | Continuity of Care Document ---
Author Organization [facility] Address [address] [place] [address]- Care Team Providers Care Block Sawyer Name Role Phone Antonio Sellers MD Primary Care Physician [place] [facility]): 03/18/25 - 04/17/25 [facility] [address] [place] [address]- Encounter Type: Triage Allergies, Adverse Reactions, Alerts Substance Criticality Severity Reaction Reaction Severity Status ibuprofen Unknown Active labetalol ithcing of eyes Acti ve furosemide 1 Eruption Active hydrALAZINE 2 Anaphylaxis Acti ve metoprolol Eruption Active heparin Active isosorbide dinitrate High criticality Severe Active predniSONE 3 Eruption Other Active spironolactone Rash Itching Swelling of breast Active doxazosin no anaphylaxis throat swelling Active lisinopril throat tightening Active hydrOXYzine Active methocarbamol Unknown Active gabapentin High criticality Severe anaphylaxis Active losartan 4 Active valsartan Tongue swelling Itch Facial swelling Active penicillins hives C/O: itching Swelling of throat Active angiotensin converting enzyme inhibitors itchy, rash Unknown Active beta blockers Unknown Active Motrin Active Adhesive Bandage Act grecia Latex Eruption Itching Active Sensipar Active Other Environmental Allergy dye in benadryl Active epoetin beta-methoxy polyethylene glycol Unable to assess criticality Persistent Severe Dyspnea Eruption Active ANNA inhibitors Unknown Activ e cloNIDine Anaphylaxis Active traMADol throat tightening Active amLODIPine rash Unknown Active cloNIDine topical chest pain A ctive levoFLOXacin Skin peeling an d itchiness Active Retacrit Active 1Outside Source Comment: And stomach pain [...] 9:55:00 AM EDT, Route to Pharmacy Electronically, [facility]/pharmacy #[id number], Partial fill upon patient request if the [...] Refills, Maintenance, 03/02/25 4:27:00 PM EDT, Aerosol, [facility]/pharmacy #[id number], Partial fill upon patient request if the [...] 1 Refills, Maintenance, 01/21/25 10:45:00 AM EDT, [facility]/pharmacy #[id number], Partial fill upon patient request if [...] Refills, Maintenance, 03/18/25 10:53:00 AM EDT, Capsule, [facility], Partial fill upon patient [...] 0 Refills, Maintenance, 03/18/25 10:30:00 AM EDT, [facility], Partial fill upon patient [...] 1 Refills, Maintenance, 01/06/25 7:21:00 AM EDT, [facility]/pharmacy #[id number], takes in addition to the keppra [...] Refills, Maintenance, 03/22/25 4:26:00 PM EDT, Tablet, [facility]/pharmacy #[id number], Partial fill upon patient request if [...] Team Personnel Name: Jayleen Quintana RN Position: [facility] RN Member Role: Primary Care Nurse Name: Kiki Kahn RN Position: [facility] RN Member Role: Primary Care Nurse Name: Kelsey Saenz RN Position: [facility] RN Member Role: Primary Care Nurse Name: Saurabh Calixto RN Position: [facility] RN Member Role: Primary Care Nurse Name: Zuleika Saldivar RN Position: [facility] AMB Nurse Member Role: Primary Care Nurse Name: Caitlyn Mendoza RN Position: [facility] RN Member Role: Primary Care Nurse Name: Adrianne Schwab RN Position: [facility] RN Member Role: Primary Care Nurse Name: Liya Read RN Position: [facility] RN Member Role: Primary Care Nurse Name: Zainab Trejo RN Position: [facility] Outreach Member Role: Primary Care Nurse Name: Zoë Torres RN Position: [facility] RN Member Role: Primary Care Nurse Name: Catherine Emerson RN Position: [facility] RN Member Role: Primary Care Nurse Name: Lisa Polanco Position: [facility] RN Supv Member Role: Primary Care Nurse Name: Loren Shannon RN Position: [facility] SN RN Member Role: Primary Care Nurse Name: Man Perdue RN Position: [facility] RN Member Role: Primary Care Nurse Name: Sara Maya RN Position: [facility] RN Member Role: Primary Care Nurse Name: Casie Chung RN Position: [facility] Rad RN Member Role: Primary Care Nurse Name: Jenna Rodrigues RN Position: [facility] RN Member Role: Primary Care Nurse Name: Mariaa Parkinson RN Position: [facility] RN Member Role: Primary Care Nurse Name: Katrin Arriaza RN Position: [facility] RN Member Role: Primary Care Nurse Name: Vanessa Martínez Position: [facility] RN Member Role: Primary Care Nurse Name: Michelle Landers RN Position: [facility] RN Member Role: Primary Care Nurse Name: Lima Cedeño RN Position: [facility] RN Member Role: Primary Care Nurse Name: Cesar Archer RN Position: [facility] RN Member Role: Primary Care Nurse Name: Sabra Hanson RN Position: [facility] RN Member Role: Primary Care Nurse Name: Gwendolyn Maria RN Position: [facility] RN Member Role: Primary Care Nurse Name: Lisa Nieves RN Position: [facility] RN Member Role: Primary Care Nurse Name: Kelsie Atkinson RN Position: [facility] SN RN Member Role: Primary Care Nurse Name: Nelda Castillo Position: [facility] Outreach Member Role: Lifetime Consulting Physician Name: Ambika Brannon RN Position: [facility] RN Member Role: Primary Care Nurse Name: Shaun Summers RN Position: [facility] RN Member Role: Primary Care Nurse Name: Sylvester Teresa MD Position: [facility] Renal MD Member Role: Lifetime Consulting Physician Address: [address] [place] [address] [address] [facility] [place] [address]- Telecom: Name: Meliza Shelley Position: [facility] RN Member Role: Primary Care Nurse Name: Abhinav Gresham LPN Position: [facility] RN Member Role: Primary Care Nurse Name: Ashlee Maldonado RN Position: [facility] Outreach Member Role: Lifetime Consulting Physician Name: Zainab Lemon RN Position: [facility] RN Member Role: Primary Care Nurse Name: Audrey Marlow RN Position: [facility] RN Member Role: Primary Care Nurse Name: Elvis Laurent RN Position: [facility] RN Member Role: Primary Care Nurse Name: Skyler Muniz RN Position: [facility] RN Member Role: Primary Care Nurse Name: Horace Sky RN Position: [facility] RN Member Role: Primary Care Nurse Name: Rozina Bentley RN Position: [facility] RN Member Role: Primary Care Nurse Name: Nathaly Salvador RN Position: [facility] RN Member Role: Primary Care Nurse Name: Janice Mendes Position: [facility] Outreach Member Role: Lifetime Consulting Physician Name: Smita Ghotra RN Position: [facility] RN Member Role: Primary Care Nurse Name: Rashel Goodwin RN Position: [facility] RN Member Role: Primary Care Nurse Name: Abhinav Simeon RN Position: [facility] RN Member Role: Primary Care Nurse Name: Norma Martinez RN Position: [facility] RN Member Role: Primary Care Nurse Name: Juan Rivera RN Position: [facility] RN Member Role: Primary Care Nurse Name: Beverly Kramer RN Position: [facility] RN Member Role: Primary Care Nurse Name: Malgorzata Taylor RN Position: [facility] RN Member Role: Primary Care Nurse Name: Quynh Miguel RN Position: [facility] RN Member Role: Primary Care Nurse Name: Zuleika Bolden RN Position: [facility] RN Member Role: Primary Care Nurse Name: Mechelle Rodgers NP Position: [facility] Associate Professional Member Role: Lifetime Consulting Provider Address: [facility] [address] [facility] [address] Telecom: Name: Kassie Fernandez RN Position: [facility] AMB Nurse Member Role: Primary Care Nurse Name: Tod Stone MD Position: [facility] Renal MD Member Role: Lifetime Consulting Physician Address: [facility] [address] [facility] [address] Telecom: Name: Barbara Arvizu RN Position: [facility] RN Member Role: Primary Care Nurse Name: Angelique Garcia RN Position: [facility] ED RN W/OE and Tasks Member Role: Primary Care Nurse Name: Lita Sanchez RN Position: [facility] ED RN W/OE and Tasks Member Role: Primary Care Nurse Name: Lyla Wilson RN Position: [facility] RN Member Role: Primary Care Nurse Name: Maritza Hodge RN Position: [facility] RN Member Role: Primary Care Nurse Name: Wen Henderson RN Position: [facility] RN Member Role: Primary Care Nurse Name: Ayana Esteban RN Position: [facility] RN Member Role: Primary Care Nurse Name: Rogerio Arita RN Position: [facility] ED RN W/OE and Tasks Member Role: Primary Care Nurse Name: Angelita Hernández RN Position: [facility] SN RN Member Role: Primary Care Nurse Name: Leanne Cuba RN Position: [facility] RN Member Role: Primary Care Nurse Name: Blanca Estrada RN Position: [facility] RN Member Role: Primary Care Nurse Name: Malick Arechiga DO Position: [facility] Renal MD Member Role: Lifetime Consulting Physician Address: [address] [facility] [place] [address]- Telecom: Name: Sarah Khan RN Position: [facility] RN Member Role: Primary Care Nurse Name: Thea Butt RN Position: [facility] RN Member Role: Primary Care Nurse Name: Brandie Valentin RN Position: [facility] RN Member Role: Primary Care Nurse Name: Gómez Donovan III, RN Position: [facility] RN Member Role: Primary Care Nurse Name: Jannette Galloway RN Position: [facility] tangible personal property appraiser Member Role: Welt Cutter Name: Areli Velazquez RN Position: [facility] RN Member Role: Primary Care Nurse Name: Mariza Chavez RN Position: [facility] RN Member Role: Primary Care Nurse Name: Romulo Vasquez RN Position: [facility] RN Member Role: Primary Care Nurse Name: Miguel Lazar Position: [facility] RN Member Role: Primary Care Nurse Name: Kimberly Bentley Position: [facility] RN Member Role: Primary Care Nurse Name: Lili Jeter RN Position: [facility] RN Member Role: Primary Care Nurse Name: Martin Anthony RN Position: [facility] RN Member Role: Primary Care Nurse Name: Ace Clark RN Position: [facility] RN Member Role: Primary Care Nurse Name: Maribel Guerrero RN Position: [facility] RN Member Role: Primary Care Nurse Name: Maxine Hooks RN Position: [facility] RN Member Role: Primary Care Nurse Name: Titus Stark MD Position: [facility] Renal MD Member Role: Lifetime Consulting Physician Address: [address] [facility] [place] [address]- [place] Telecom: Name: Shelby Hernandez RN Position: [facility] RN Member Role: Primary Care Nurse Name: Jamaica Marquez RN Position: [facility] RN Member Role: Primary Care Nurse Name: Ambika Fabian RN Position: [facility] RN Member Role: Primary Care Nurse Name: Cassandra Flores RN Position: [facility] RN Member Role: Primary Care Nurse Name: Claudia Pop LPN Position: [facility] RN Member Role: Primary Care Nurse Name: Binu Sharma RN Position: [facility] RN Member Role: Primary Care Nurse Name: Mechelle Carter LPN Position: [facility] RN Member Role: Primary Care Nurse Name: Rena Field RN Position: [facility] RN Member Role: Primary Care Nurse Name: Emir [INSTR] Dee MCKEON Position: [facility] RN Member Role: Primary Care Nurse Name: Jacy Menjivar RN Position: [facility] RN Member Role: Primary Care Nurse Name: Binu Townsend RN Position: [facility] RN Member Role: Primary Care Nurse Name: Kelsey Harding RN Position: [facility] RN Member Role: Primary Care Nurse Name: Geremias Larson RN Position: [facility] RN Member Role: Primary Care Nurse Name: Tamela Stevenson RN Position: [facility] ED RN W/OE and Tasks Member Role: Primary Care Nurse Name: Jean Mena RN Position: [facility] RN Member Role: Primary Care Nurse Name: Marion Morales RN Position: [facility] RN Member Role: Primary Care Nurse Name: Antonio Sellers MD Position: [facility] Physician - Primary Care Member Role: PCP Address: [address] [place], [place] [address] Telecom: Name: Noelle Snider RN Position: [facility] SN RN Member Role: Primary Care Nurse Name: Pedro Perez RN Position: [facility] ED RN W/OE and Tasks Member Role: Primary Care Nurse Name: Zhen Vera MD Position: [facility] Renal MD Member Role: Lifetime Consulting Physician Address: [address] [facility] [address] [facility] [place] [place] [address] Telecom: Name: Cassie Galvez LPN Position: [facility] RN Member Role: Primary Care Nurse Name: Kenn Galvez RN Position: [facility] OB RN Member Role: Primary Care Nurse Name: Ashley Galvez RN Position: [facility] RN Member Role: Primary Care Nurse Name: Azra Hudson RN Position: [facility] RN Member Role: Primary Care Nurse Name: Nelda Mena RN Position: [facility] SN RN Member Role: Primary Care Nurse Name: Niko Johansen MD Position: [facility] [employer] MD Member Role: Lifetime [employer] Physician Address: [facility] [facility] [place] [address]- Telecom: Name: Faizan Sotomayor RN Position: [facility] RN Member Role: Primary Care Nurse Name: Annamarie Armenta RN Position: [facility] RN Member Role: Primary Care Nurse Name: Mae Hyatt RN Position: [facility] RN Member Role: Primary Care Nurse Name: Richard Joy RN Position: [facility] RN Member Role: Primary Care Nurse Name: Tiki Murphy RN Position: [facility] RN Member Role: Primary Care Nurse Name: Linnea Osorio RN Position: [facility] RN Member Role: Primary Care Nurse Name: Rekha Bonilla RN Position: [facility] RN Member Role: Primary Care Nurse Name: Tiki Tamayo LPN Position: [facility] RN Member Role: Primary Care Nurse Name: Aly Calloway RN Position: [facility] RN Member Role: Primary Care Nurse Name: Susie Alvarez RN Position: [facility] RN Member Role: Primary Care Nurse Name: Azra Rodriguez RN Position: [facility] RN Member Role: Primary Care Nurse Name: Penelope Reddy RN Position: [facility] RN Member Role: Primary Care Nurse Name: Sherley Bhatt RN Position: [facility] Onco RN Member Role: Primary Care Nurse Name: Colette Gallegos RN Position: [facility] RN Member Role: Primary Care Nurse Name: Zainab Fowler RN Position: [facility] RN Member Role: Primary Care Nurse Name: Jadyn Fowler RN Position: [facility] RN Member Role: Primary Care Nurse Name: Charley Fowler RN Position: [facility] Hospital Medical Genetics Director Member Role: Primary Care Nurse Name: Caroline Florence RN Position: [facility] SN RN Member Role: Primary Care Nurse Name: Keena Lopez RN Position: [facility] RN Member Role: Primary Care Nurse Name: Shilpa Lopez RN Position: S RN Member Role: Primary Care Nurse Name: Randolph Ayon RN Position: S RN Member Role: Primary Care Nurse Name: Ro Garza MD Position: [facility] Renal MD Member Role: Lifetime Consulting Physician Address: [address] [facility] [address] Telecom: Care Team Related Persons Name: ALVARO JIMENES Name: TANIYA OROZCO Name: CHRISTA OROZCO Name: JHONNY CANNON Name: ALVARO CASTRO Name: TANIYA SANTIAGO Insurance Providers Guarantor name: HIMA OROZCO Health Plan Information #: 1 Payer: MEDICARE B Payer Identifier: [place] Member Number: [id number] Group Number: NA Subscriber Identifier: NA Relationship to Subscriber: self Coverage Type: NA Coverage Verification Date: NA Telecom: Address: [facility] Information #: 2 Payer: [employer] Payer Identifier: [place] Member Number: [id number] Group Number: [place] Subscriber Identifier: [place] Relationship to Subscriber: self Coverage Type: MEDICAID Coverage Verification Date: NA Telecom: Address:
--- OUTSIDE RECORDS SUMMARY | 2025-04-17 23:59 | XMS_ITS | Continuity of Care Document ---
Author Organization [facility] Address [address] [place] [address]- Care Team Providers [employer] Guest Coordinator Name Role Phone Antonio Sellers MD Primary Care Physician Encounter [facility] [place] Date(s): 03/18/25 - 04/17/25 [facility] [address] [place], [place] [address] Encounter Type: Triage Allergies, Adverse Reactions, [...] converting enzyme inhibitors itchy, rash Unknown Active Latex Eruption Itching Active Other [...] 9:55:00 AM EDT, Route to Pharmacy Electronically, [facility]/pharmacy #[id number], Partial fill upon patient request if [...] Refills, Maintenance, 03/02/25 4:27:00 PM EDT, Aerosol, [facility]/pharmacy #[id number], Partial fill upon patient request if the [...] 1 Refills, Maintenance, 01/21/25 10:45:00 AM EDT, [facility]/pharmacy #[id number], Partial fill upon patient request [...] Refills, Maintenance, 03/18/25 10:53:00 AM EDT, Capsule, [facility], Partial fill upon patient request if [...] 0 Refills, Maintenance, 03/18/25 10:30:00 AM EDT, [facility], Partial fill upon patient request if [...] 1 Refills, Maintenance, 01/06/25 7:21:00 AM EDT, [facility]/pharmacy #[id number], takes in addition to the [...] Refills, Maintenance, 03/22/25 4:26:00 PM EDT, Tablet, [facility]/pharmacy #[id number], Partial fill upon patient request [...] Team Personnel Name: Jayleen Quintana RN Position: [facility] RN Member Role: Primary Care Nurse Name: Kiki Kahn RN Position: [facility] RN Member Role: Primary Care Nurse Name: Kelsey Saenz RN Position: [facility] RN Member Role: Primary Care Nurse Name: Saurabh Calixto RN Position: [facility] RN Member Role: Primary Care Nurse Name: Zuleika Saldivar RN Position: [facility] AMB Nurse Member Role: Primary Care Nurse Name: Caitlyn Mendoza RN Position: [facility] RN Member Role: Primary Care Nurse Name: Adrianne Schwab RN Position: [facility] RN Member Role: Primary Care Nurse Name: Liya Read RN Position: [facility] RN Member Role: Primary Care Nurse Name: Zainab Trejo RN Position: [facility] Outreach Member Role: Primary Care Nurse Name: Zoë Torres RN Position: [facility] RN Member Role: Primary Care Nurse Name: Catherine Emerson RN Position: [facility] RN Member Role: Primary Care Nurse Name: Lisa Polanco Position: [facility] RN Supv Member Role: Primary Care Nurse Name: Loren Shannon RN Position: [facility] SN RN Member Role: Primary Care Nurse Name: Man Perdue RN Position: [facility] RN Member Role: Primary Care Nurse Name: Sara Maya RN Position: [facility] RN Member Role: Primary Care Nurse Name: Casie Chung RN Position: [facility] Rad RN Member Role: Primary Care Nurse Name: Jenna Rodrigues RN Position: [facility] RN Member Role: Primary Care Nurse Name: Mariaa Parkinson RN Position: [facility] RN Member Role: Primary Care Nurse Name: Katrin Arriaza RN Position: [facility] RN Member Role: Primary Care Nurse Name: Vanessa Martínez Position: [facility] RN Member Role: Primary Care Nurse Name: Michelle Landers RN Position: [facility] RN Member Role: Primary Care Nurse Name: Lima Cedeño RN Position: [facility] RN Member Role: Primary Care Nurse Name: Cesar Archer RN Position: [facility] RN Member Role: Primary Care Nurse Name: Sabra Hanson RN Position: [facility] RN Member Role: Primary Care Nurse Name: Gwendolyn Maria RN Position: [facility] RN Member Role: Primary Care Nurse Name: Lisa Nieves RN Position: [facility] RN Member Role: Primary Care Nurse Name: Kelsie Atkinson RN Position: [facility] SN RN Member Role: Primary Care Nurse Name: Nelda Castillo Position: [facility] Outreach Member Role: Lifetime Consulting Physician Name: Ambika Brannon RN Position: [facility] RN Member Role: Primary Care Nurse Name: Shaun Summers RN Position: [facility] RN Member Role: Primary Care Nurse Name: Sylvester Teresa MD Position: [facility] Renal MD Member Role: Lifetime Consulting Physician Address: [address] [place] [address] [address] [facility] [place], [place] [address] Telecom: Name: Meliza Shelley Position: [facility] RN Member Role: Primary Care Nurse Name: Abhinav Gresham LPN Position: [facility] RN Member Role: Primary Care Nurse Name: Ashlee Maldonado RN Position: [facility] Outreach Member Role: Lifetime Consulting Physician Name: Zainab Lemon RN Position: [facility] RN Member Role: Primary Care Nurse Name: Audrey Marlow RN Position: [facility] RN Member Role: Primary Care Nurse Name: Elvis Laurent RN Position: [facility] RN Member Role: Primary Care Nurse Name: Skyler Muniz RN Position: [facility] RN Member Role: Primary Care Nurse Name: Horace Sky RN Position: [facility] RN Member Role: Primary Care Nurse Name: Rozina Bentley RN Position: [facility] RN Member Role: Primary Care Nurse Name: Nathaly Salvador RN Position: [facility] RN Member Role: Primary Care Nurse Name: Janice Mendes Position: [facility] Outreach Member Role: Lifetime Consulting Physician Name: Smita Ghotra RN Position: [facility] RN Member Role: Primary Care Nurse Name: Rashel Goodwin RN Position: [facility] RN Member Role: Primary Care Nurse Name: Abhinav Simeon RN Position: [facility] RN Member Role: Primary Care Nurse Name: Norma Martinez RN Position: [facility] RN Member Role: Primary Care Nurse Name: Juan Rivera RN Position: [facility] RN Member Role: Primary Care Nurse Name: Beverly Kramer RN Position: [facility] RN Member Role: Primary Care Nurse Name: Malgorzata Taylor RN Position: [facility] RN Member Role: Primary Care Nurse Name: Quynh Miguel RN Position: [facility] RN Member Role: Primary Care Nurse Name: Zuleika Bolden RN Position: [facility] RN Member Role: Primary Care Nurse Name: Mechelle Rodgers NP Position: [facility] Associate Professional Member Role: Lifetime Consulting Provider Address: [facility] [address] [facility] [address] Telecom: Name: Kassie Fernandez RN Position: [facility] AMB Nurse Member Role: Primary Care Nurse Name: Tod Stone MD Position: [facility] Renal MD Member Role: Lifetime Consulting Physician Address: [facility] [address] [facility] [address] Telecom: Name: Barbara Arvizu RN Position: [facility] RN Member Role: Primary Care Nurse Name: Angelique Garcia RN Position: [facility] ED RN W/OE and Tasks Member Role: Primary Care Nurse Name: Lita Sanchez RN Position: [facility] ED RN W/OE and Tasks Member Role: Primary Care Nurse Name: Lyla Wilson RN Position: [facility] RN Member Role: Primary Care Nurse Name: Maritza Hodge RN Position: [facility] RN Member Role: Primary Care Nurse Name: Wen Henderson RN Position: [facility] RN Member Role: Primary Care Nurse Name: Ayana Esteban RN Position: [facility] RN Member Role: Primary Care Nurse Name: Rogerio Arita RN Position: [facility] ED RN W/OE and Tasks Member Role: Primary Care Nurse Name: Angelita Hernández RN Position: [facility] SN RN Member Role: Primary Care Nurse Name: Leanne Cuba RN Position: [facility] RN Member Role: Primary Care Nurse Name: Blanca Estrada RN Position: [facility] RN Member Role: Primary Care Nurse Name: Malick Arechiga DO Position: [facility] Renal MD Member Role: Lifetime Consulting Physician Address: [address] [facility] [place] [address]- Telecom: Name: Sarah Khan RN Position: [facility] RN Member Role: Primary Care Nurse Name: Thea Butt RN Position: [facility] RN Member Role: Primary Care Nurse Name: Brandie Valentin RN Position: [facility] RN Member Role: Primary Care Nurse Name: Gómez Donovan III, RN Position: [facility] RN Member Role: Primary Care Nurse Name: Jannette Galolway RN Position: [facility] bridge repairer Member Role: Ornamental Iron Worker Name: Areli Velazquez RN Position: [facility] RN Member Role: Primary Care Nurse Name: Mariza Chavez RN Position: [facility] RN Member Role: Primary Care Nurse Name: Romulo Vasquez RN Position: [facility] RN Member Role: Primary Care Nurse Name: Miguel Lazar Position: [facility] RN Member Role: Primary Care Nurse Name: Kimberly Bentley Position: [facility] RN Member Role: Primary Care Nurse Name: Lili Jeter RN Position: [facility] RN Member Role: Primary Care Nurse Name: Martin Anthony RN Position: [facility] RN Member Role: Primary Care Nurse Name: Ace Clark RN Position: [facility] RN Member Role: Primary Care Nurse Name: Maribel Guerrero RN Position: [facility] RN Member Role: Primary Care Nurse Name: Maxine Hooks RN Position: [facility] RN Member Role: Primary Care Nurse Name: Titus Stark MD Position: [facility] Renal MD Member Role: Lifetime Consulting Physician Address: [address] [facility] [place] [address]- [place] Telecom: Name: Shelby Hernandez RN Position: [facility] RN Member Role: Primary Care Nurse Name: Jamaica Marquez RN Position: [facility] RN Member Role: Primary Care Nurse Name: Ambika Fabian RN Position: [facility] RN Member Role: Primary Care Nurse Name: Cassandra Flores RN Position: [facility] RN Member Role: Primary Care Nurse Name: Claudia Pop LPN Position: [facility] RN Member Role: Primary Care Nurse Name: Binu Sharma RN Position: [facility] RN Member Role: Primary Care Nurse Name: Mechelle Carter LPN Position: [facility] RN Member Role: Primary Care Nurse Name: Rena Field RN Position: [facility] RN Member Role: Primary Care Nurse Name: Emir [INSTR] Dee MCKEON Position: [facility] RN Member Role: Primary Care Nurse Name: Jacy Menjivar RN Position: [facility] RN Member Role: Primary Care Nurse Name: Binu Townsend RN Position: [facility] RN Member Role: Primary Care Nurse Name: Kelsey Harding RN Position: [facility] RN Member Role: Primary Care Nurse Name: Geremias Larson RN Position: [facility] RN Member Role: Primary Care Nurse Name: Tamela Stevenson RN Position: [facility] ED RN W/OE and Tasks Member Role: Primary Care Nurse Name: Jean Mena RN Position: [facility] RN Member Role: Primary Care Nurse Name: Marion Morales RN Position: [facility] RN Member Role: Primary Care Nurse Name: Antonio Sellers MD Position: [facility] Physician - Primary Care Member Role: PCP Address: [address] [facility] [place], [place] [address] Telecom: Name: Noelle Snider RN Position: [facility] SN RN Member Role: Primary Care Nurse Name: Pedro Perez RN Position: [facility] ED RN W/OE and Tasks Member Role: Primary Care Nurse Name: Zhen Vera MD Position: [facility] Renal MD Member Role: Lifetime Consulting Physician Address: [address] [facility] [address] [facility] [place], [place] [address] Telecom: Name: Cassie Galvez LPN Position: [facility] RN Member Role: Primary Care Nurse Name: Kenn Galvez RN Position: [facility] OB RN Member Role: Primary Care Nurse Name: Ashley Galvez RN Position: [facility] RN Member Role: Primary Care Nurse Name: Azra Hudson RN Position: [facility] RN Member Role: Primary Care Nurse Name: Nelda Mena RN Position: [facility] SN RN Member Role: Primary Care Nurse Name: Niko Johansen MD Position: [facility] ICEBOX WORKER MD Member Role: Lifetime ICEBOX WORKER Physician Address: [address] [facility] [place] [address]- Telecom: Name: Faizan Sotomayor RN Position: [facility] RN Member Role: Primary Care Nurse Name: Annamarie Armenta RN Position: [facility] RN Member Role: Primary Care Nurse Name: Mae Hyatt RN Position: [facility] RN Member Role: Primary Care Nurse Name: Richard Joy RN Position: [facility] RN Member Role: Primary Care Nurse Name: Tiki Murphy RN Position: [facility] RN Member Role: Primary Care Nurse Name: Linnea Osorio RN Position: [facility] RN Member Role: Primary Care Nurse Name: Rekha Bonilla RN Position: [facility] RN Member Role: Primary Care Nurse Name: Tiki Tamayo LPN Position: [facility] RN Member Role: Primary Care Nurse Name: Aly Calloway RN Position: [facility] RN Member Role: Primary Care Nurse Name: Susie Alvarez RN Position: [facility] RN Member Role: Primary Care Nurse Name: Azra Rodriguez RN Position: [facility] RN Member Role: Primary Care Nurse Name: Penelope Reddy RN Position: [facility] RN Member Role: Primary Care Nurse Name: Sherley Bhatt RN Position: [facility] Onco RN Member Role: Primary Care Nurse Name: Colette Gallegos RN Position: [facility] RN Member Role: Primary Care Nurse Name: Zainab Fowler RN Position: [facility] RN Member Role: Primary Care Nurse Name: Jadyn Fowler RN Position: [facility] RN Member Role: Primary Care Nurse Name: Charley Fowler RN Position: [facility] Hospital Supervisor Tower Member Role: Primary Care Nurse Name: Caroline Florence RN Position: [facility] SN RN Member Role: Primary Care Nurse Name: Keena Lopez RN Position: [facility] RN Member Role: Primary Care Nurse Name: Shilpa Lopez RN Position: S RN Member Role: Primary Care Nurse Name: Randolph Ayon RN Position: S RN Member Role: Primary Care Nurse Name: Ro Garza MD Position: [facility] Renal MD Member Role: Lifetime Consulting Physician Address: [address] [facility] [address] Telecom: Care Team Related Persons Name: ALVARO JIMENES Name: TANIYA OROZCO Name: CHRISTA OROZCO Name: JHONNY CANNON Name: ALVARO CASTRO Name: TANIYA SANTIAGO Insurance Providers Guarantor name: HIMA OROZCO Health Plan Information #: 1 Payer: MEDICARE B Payer Identifier: [place] Member Number: [id number] Group Number: NA Subscriber Identifier: NA Relationship to Subscriber: self Coverage Type: NA Coverage Verification Date: NA Telecom: Address: Health Plan Information #: 2 Payer: [employer] Payer Identifier: [place] Member Number: [id number] Group Number: [id number] Subscriber Identifier: NA Relationship to Subscriber: self Coverage Type: MEDICAID Coverage Verification Date: NA Telecom: Address:
--- NOTE | ~2025-04-21 | XR_ITS ---
CLINICAL HISTORY: CHest pain SOB 1 view chest x-ray Comparison: 02/12/2025 Findings: Lungs are clear without acute infiltrates. No pneumothorax. Heart size enlarged. No acute bony abnormalities. Impression: No acute processes This document has been electronically signed by: John Galicia MD on 04/21/2025 20:28:12
--- NOTE | 2025-04-21 17:45 | ECG_ITS ---
Test Reason : cp Blood Pressure : */* mmHG Vent. Rate : 75 BPM Atrial Rate : 75 BPM P-R Int : 170 ms QRS Dur : 80 ms QT Int : 422 ms P-R-T Axes : 45 1 143 degrees QTcB Int : 471 ms Normal sinus rhythm Possible Left atrial enlargement Minimal voltage criteria for LVH, may be normal variant ( Union product ) Nonspecific ST and T wave abnormality Prolonged QT Abnormal ECG When compared with ECG of 12-Feb-2025 05:32, No significant change was found Referred By: Generic ED Physician Electronically Signed By: YANA LINARES
[2025-04-21 17:59] VITALS: BP 198/115; PULSE 94; RESP 20; TEMP 37.2; O2SAT 64; BMI 23.4
--- NOTE | 2025-04-21 18:10 | ED_ITS ---
HPI - General Adult General Chief complaint: Chest Pain Stated complaint: CP, low hgb Time Seen by Provider: 04/21/25 19:27 History of Present Illness ED Provider: Christina Andersen HPI narrative: 39-year-old female open medical history significant for asthma, diastolic heart failure, tricuspid regurgitation, pulmonary hypertension, IgA, ESRD on hemodialysis Friday presents to the ED for evaluation today reporting generalized body aches and pain. She has not been able to take her oxycodone for the past 24 hours and reports the pain in her body is so severe. She missed her dialysis session today due to this. She denies any chest pain or pressure, palpitations. No shortness of breath. No abdominal pain, nausea or vomiting. She did note some dysuria, as well as thought she noted some blood in the urine. She also noted some vaginal discharge, with no smell. The last time she had dialysis was 2 days prior. She is currently transferring her care from [facility] to our facility. No fever, chills, recent illnesses. Related Data Home Medications ?Medication ?Instructions ?Recorded ?Confirmed cholecalciferol (vitamin D3) 50 100 mcg PO DAILY 12/3004/21/25 mcg (2,000 unit) tablet (Vitamin D3) pantoprazole 40 mg tablet,delayed 40 mg PO DAILY@0630 12/30/24 04/21/25 release nifedipine 30 mg tablet,extended 30 mg PO TID 01/06/25 04/21/25 release 24 hr sildenafil (pulm.hypertension) 20 20 mg PO TID 5 04/21/25 mg tablet albuterol sulfate 90 mcg/actuation 2 puff inhalation Q 6H PRN 02/08/25 04/21/25 aerosol inhaler Shortness Of Breath Or Wheez ing ferric citrate 210 mg iron tablet 420 mg PO TIDWM 04/0204/21/25 (Auryxia) formoterol fumarate 20 mcg/2 mL 2 ml inhalation BID UT N Wheezing 04/18/25 04/21/25 solution for nebulization minoxidil 2.5 mg tablet 7.5 mg PO DAILY 04/18/25 Previous Rx's ?Medication ?Instructions ?Recorded carvedilol 25 mg tablet 25 mg PO BID 90 days #180 ta bs 04/18/25 levetiracetam 250 mg tablet 250 mg PO TUTHSA 90 days # 39 tabs 04/18/25 levetiracetam 500 mg tablet 500 mg PO DAILY 90 days #9 0 tabs 04/18/25 budesonide 0.5 mg/2 mL suspension 0.25 mg inhalation B ID PRN 04/19/25 for nebulization shortness of breath or wheez ing #60 mL oxycodone 15 mg tablet 15 mg PO Q4H PRN Breakthroug h Pain 04/23/25 2 days #12 tabs Allergies Allergy/AdvReac Type Severity Reaction Status Date / Time ANNA Inhibitors Allergy Unknown Verified 04/21/25 18:08 adhesive tape Allergy Unknown Verified 04/21/25 18:08 amlodipine Allergy Unknown Verified 04/21/25 18:08 angiotensin II acetate, human Allergy Itching Verified 04/21/25 18:08 Beta-Blockers Allergy Itching Verified 04/21/25 18:08 (Beta-Adrenergic Bloc cinacalcet (From Sensipar) Allergy Unknown Verified 04/21/25 18:08 clonidine Allergy Anaphylaxis Verified 04/21/25 18:08 doxazosin Allergy Anaphylaxis Verified 04/21/25 18:08 epoetin michael-epbx (From Allergy Unknown Verified 04/21/25 18:08 Retacrit) epoetin beta Allergy Unknown Verified 04/21/25 18:08 furosemide Allergy Unknown Verified 04/21/25 18:08 gabapentin Allergy Anaphylaxis Verified 04/21/25 18:08 heparin Allergy Unknown Verified 04/21/25 18:08 hydralazine Allergy Anaphylaxis Verified 04/21/25 18:08 hydroxyzine Allergy Unknown Verified 04/21/25 18:08 ibuprofen (From Motrin) Allergy Unknown Verified 04/21/25 18:08 isosorbide Allergy Unknown Verified 04/21/25 18:08 labetalol Allergy Eye Verified 04/21/25 18:08 Swelling latex Allergy Itching Verified 04/21/25 18:08 levofloxacin Allergy Itching Verified 04/21/25 18:08 lisinopril Allergy Itching Verified 04/21/25 18:08 losartan Allergy Unknown Verified 04/21/25 18:08 methocarbamol Allergy Unknown Verified 04/21/25 18:08 metoprolol Allergy Unknown Verified 04/21/25 18:08 Penicillins Allergy Hives Verified 04/21/25 18:08 prednisone Allergy Unknown Verified 04/21/25 18:08 spironolactone Allergy Itching Verified 04/21/25 18:08 tramadol Allergy Unknown Verified 04/21/25 18:08 valsartan Allergy Facial Verified 04/21/25 18:08 Swelling diphenhydramine (From AdvReac Unknown Verified 04/22/25 16:56 Benadryl) Review of Systems 2 Review of Systems: ROS is otherwise negative unless mentioned in HPI. [facility] Past Medical History Medical History (Updated 04/22/25 @ 16:11 by Juju Alejandro MD) Vaginitis Unspecified asthma Myofascial pain Diastolic CHF Tricuspid regurgitation Recurrent chest pain Pericardial effusion Pulmonary hypertension Iron deficiency anemia ESRD on hemodialysis Chest pain Chronic hypoxic respiratory failure Seizure disorder ESRD (end stage renal disease) on dialysis Family History Family History Other Diabetes mellitus Primary hypertension Social History Social History Household Members: Family Housing: House Do you presently have visiting nurse or other home services: No Patient Tobacco Use Status: Never used Tobacco e-Cigarette/Vaping Use: Never Used service: No Current occupational status: unemployed Physical Exam ED Exam Exam: Nursing notes and vital signs reviewed. Constitutional: Well-appearing, NAD. Alert. Oriented X3. Eyes: EOMI. ENT: Pharynx normal. Neck: Normal inspection. Neck supple. CVS: Normal heart rate and rhythm. Pulses normal. Respiratory: No respiratory distress. Breath sounds normal. Abdomen: Soft and nontender. +BSx4. Vaginal: External exam is normal. No noted discharge. No speculum examination completed. Skin: Skin warm and dry. Normal skin color. Extremities: No lower extremity edema. Neuro: Oriented X 3. No motor deficit. Vital Signs: Vital Signs - 24 hr 04/21/25 17:59 04/21/25 20:21 04/21/25 21:48 Temperature 98.9 F 98.3 F Pulse Rate 94 70 68 Respiratory Rate 20 17 18 Blood Pressure 198/115 H 196/113 H 185/99 H Pulse Oximetry 64 L 98 Oxygen Delivery Method Room Air Room Air Room Air BMI result Body Mass Index 23.4 Course Course Course Narrative: RME: 39 yold female with pmh fo ESRD, seizure presents to the ED For chest pain, shortness of breath, dysuria, and fatigue. patient missed dialysis today due to not feelting well. labs chesty xray ordered., Medications Administered Discontinued Medications Generic Name Dose Route Start Last Admin Trade Name Freq PRN Reason Stop Dose Admin Acetaminophen 650 mg 04/22/25 01:40 04/22/25 03:21 Acetaminophen 325 Mg Tablet PO 650 mg Q6H PRN Administration Pain, Mild 1-3,fever,headache Budesonide 0.25 mg 04/22/25 01:42 04/23/25 06:10 Budesonide 0.5 Mg/2 Ml Ampul.Neb INHALE 0.25 mg BID PRN Administration shortness of breath or wheezing Carvedilol 25 mg 04/22/25 08:00 04/23/25 16:09 Carvedilol 25 Mg Tablet PO 25 mg BIDWM MARGY Administration Protocol Dextrose 25 gm 04/21/25 19:58 04/21/25 21:42 Dextrose 50 % 25 Gm/50 Ml Syringe IVPUSH 04/21/25 19:59 Not Given ONCE ONE Diphenhydramine HCl 50 mg 04/21/25 19:34 04/21/25 20:39 Diphenhydramine Hcl 50 Mg/Ml Vial IVPUSH 04/21/25 19:35 50 mg ONCE ONE Administration Diphenhydramine HCl 25 mg 04/22/25 02:08 04/23/25 16:10 Diphenhydramine Hcl 50 Mg/Ml Vial IVPUSH 25 mg Q6H PRN Administration Itching Diphenhydramine HCl 50 mg 04/22/25 09:20 04/22/25 09:28 Diphenhydramine Hcl 50 Mg/Ml Vial IVPUSH 04/22/25 09:21 50 mg ONCE ONE Administration Diphenhydramine HCl 50 mg 04/23/25 10:35 04/23/25 10:45 Diphenhydramine Hcl 50 Mg/Ml Vial IVPUSH 04/23/25 10:36 50 mg ONCE ONE Administration Fluconazole 150 mg 04/22/25 12:26 04/22/25 15:17 Fluconazole 150 Mg Tablet PO 04/22/25 12:27 150 mg ONCE ONE Administration Heparin Sodium (Porcine) 5,000 unit 04/22/25 01:45 04/22/25 01:59 Heparin Sodium,Porcine 5,000 Unit/Ml Vial SUBCUT Not Given Q8H MARGY Hydromorphone HCl 1 mg 04/21/25 19:34 04/21/25 20:39 Hydromorphone Hcl 1 Mg/Ml Syringe IVPUSH 04/21/25 19:35 1 mg ONCE ONE Administration Protocol Hydromorphone HCl 1 mg 04/21/25 21:43 04/21/25 21:56 Hydromorphone Hcl 1 Mg/Ml Syringe IVPUSH 04/21/25 21:44 1 mg ONCE ONE Administration Protocol Hydromorphone HCl 0.5 mg 04/22/25 01:40 04/23/25 17:05 Hydromorphone Hcl 1 Mg/Ml Syringe IVPUSH 0.5 mg Q4H PRN Administration Breakthrough Pain Protocol Hydromorphone HCl 1 mg 04/22/25 04:16 04/22/25 04:42 Hydromorphone Hcl 0.5 Mg/0.5 Ml Syringe IVPUSH 04/22/25 04:17 1 mg ONCE ONE Administration Protocol Calcium Gluconate 1 gm in 50 mls @ 50 mls/hr 04/21/25 19:58 04/21/25 23:09 Calcium Gluconate IV 04/21/25 20:57 Infused ONCE ONE Infusion Insulin Human Regular 5 unit 04/21/25 19:58 04/21/25 21:42 Insulin Regular, Human 100 Unit/Ml 10 Ml Vial IVPUSH 04/21/25 19:59 Not Given ONCE ONE Levetiracetam 500 mg 04/22/25 09:00 04/23/25 08:50 Levetiracetam 500 Mg Tablet PO 500 mg DAILY MARGY Administration Levetiracetam 250 mg 04/23/25 21:00 04/23/25 21:57 Levetiracetam 250 Mg Tablet PO 250 mg TuThSa@2100 MARGY Administration Levetiracetam 250 mg 04/22/25 17:00 04/22/25 17:45 Levetiracetam 250 Mg Tablet PO 04/22/25 17:01 250 mg ONCE ONE Administration Minoxidil 7.5 mg 04/22/25 09:00 04/23/25 08:49 Minoxidil 2.5 Mg Tablet PO 7.5 mg DAILY MARGY Administration Nifedipine 30 mg 04/22/25 04:25 04/24/25 04:33 Nifedipine Er 30 Mg Tab.Er.24 PO 30 mg BID MARGY Administration Protocol Nystatin/Triamcinolone Acetonide 1 appl 04/23/25 02:15 04/23/25 22:08 Nystatin/Triamcinolone Cream 15 Gm Tube TOPICAL Not Given BID [facility] Protocol Ondansetron HCl 4 mg 04/23/25 21:39 04/23/25 22:00 Ondansetron Odt 4 Mg Tab.Rapdis TRANSLINGU 04/23/25 21:40 4 mg ONCE ONE Administration Oxycodone HCl 15 mg 04/22/25 01:42 04/24/25 02:57 Oxycodone Hcl Immed Release 15 Mg Tablet PO 15 mg Q4H PRN Administration Breakthrough Pain Pantoprazole Sodium 40 mg 04/22/25 06:30 04/24/25 06:14 Pantoprazole Sodium 20 Mg Tablet. PO 40 mg DAILY@0630 MARGY Administration Sildenafil Citrate 20 mg 04/22/25 09:00 04/23/25 22:00 Sildenafil Citrate 20 Mg Tablet PO 20 mg TID MARGY Administration Sodium Chloride 3 ml 04/22/25 08:00 04/23/25 22:04 0.9 % Sodium Chloride Flush 3 Ml Syringe IVFLUSH 3 ml QSHIFT MARGY Administration Sodium Zirconium Cyclosilicate 10 gm 04/21/25 19:46 04/21/25 20:39 Sodium Zirconium Cyclosilicate 10 Gm Powd.Pack PO 04/21/25 19:47 10 gm ONCE ONE Administration Sodium Zirconium Cyclosilicate 10 gm 04/22/25 05:13 04/22/25 05:26 Sodium Zirconium Cyclosilicate 10 Gm Powd.Pack PO 04/22/25 05:14 10 gm ONCE ONE Administration Medical Decision Making Medical Decision Making MDM Narrative: Upon my initial assessment, she is answering all questions appropriately. She overall appears well. Workup was ordered prior to my assessment, which shows hyperkalemia with a potassium of 6. She missed her dialysis session today. She does not have EKG changes. I spoke with on-call nephrology Dr. Longo who recommended a dose of 10 g Lokelma orally, and likely repeating this dose later. He also recommended admission for dialysis tomorrow. I have ordered this dose, as well as calcium, insulin and dextrose. Upon review of her lab work she appears to be baseline anemic, here she is 8.1/26. This is stable. Her creatinine was 9.86, significantly elevated. She tells me that she also missed dialysis because she is transferring care to our hospital. Negative viral panel. We will obtain BV panel given her report of discharge, urinalysis, and plan to admit to medicine service. She tells me that when her potassium levels high she gets itchy, and for the body aches usually gets Dilaudid. I have ordered a dose of Benadryl, she requested this be 50 mg because 25 mg does not help her. I have ordered this. She also requested a dose of Dilaudid for her body aches, which I have ordered as well. 2139-- the patient's x-ray of the chest shows no acute abnormality. Otherwise workup has remained reassuring. She reportedly refused the dextrose and insulin from nursing staff. I discussed this with her extensively in the context of the importance of taking these medications in conjunction with the calcium and lokelma, to decrease her potassium level. However despite the extensive education at this time she would like to decline, and she tells me that every time she gets insulin she passes out . We did discuss that this is the small dose but again she has declined at this time. We will repeat BMP inpatient, she is agreeable to take the medication if needed if hyperkalemia persists. BV swab has been sent. Speculum exam deferred d/t pain. Reported persistent pain, and therefore dilaudid 1 mg was ordered again as an additional dose; she reports she typically receives 2 mg. she is agreeable to admission plan. signed out to hospitalist at 2149. Differential Diagnosis Differential Diagnoses: The differential diagnosis associated with the presentation includes Admission/Observation Consideration of admission/observation: Escalation of care including admission/observation considered (Indicated for dialysis tomorrow) Consult Healthcare Provider Management of the patient was discussed with: Hospitalist Lab Data MDM Lab Attestation statement: I reviewed the patient's lab results. (End-stage kidney disease, hyperkalemia.) 04/21/25 18:25 04/24/25 02:12 Labs: Lab Results 04/21/25 04/21/25 Range/Units 18:25 21:40 WBC 5.8 (4.8-10.8) X10*3/uL RBC 2.66 L (4.20-5.50) X10*6/uL Hgb 8.1 L (12.0-16.0) g/dl Hct 26.0 L (37.0-47.0) % MCV 97.7 (80.0-98.0) fL MCH 30.5 (27.0-33.0) pg MCHC 31.2 (31.0-35.0) g/dl RDW 16.2 H (11.0-16.0) % Plt Count 129 L (160-400) X10*3/uL MPV 10.4 (9.4-12.3) fL Immature Gran % (Auto) 0.3 (0.0-0.4) % Neut % (Auto) 77.2 H (45-73) % Lymph % (Auto) 10.2 L (20-40) % Dare % (Auto) 6.9 (2-11) % Eos % (Auto) 4.5 H (0-4) % Baso % (Auto) 0.9 (0-2) % Lymph # (Auto) 0.6 L (1.2-4.9) X10*3/uL Dare # (Auto) 0.4 (0.1-1.2) X10*3/uL Eos # (Auto) 0.3 (0.0-0.4) X10*3/uL Baso # (Auto) 0.1 (0.0-0.2) X10*3/uL Abs Immat Gran (auto) 0.02 (0.00-0.03) X10*3/uL Absolute Neuts (auto) 4.5 (2.0-8.3) x10*3/uL Absolute Nucleated RBC 0.000 (0.0-0.012) X10*3/uL Nucleated RBC % (auto) 0.0 (0.0-0.2) /100WBC PT 15.3 H (11.2-13.5) SEC INR 1.3 H (0.9-1.1) APTT 33.4 (26.7-34.1) SEC Sodium 144 (135-145) mmol/L Potassium 6.0 H* D (3.3-5.1) mmol/L Chloride 103 (96-108) mmol/L Carbon Dioxide 24 (22-29) mmol/L Anion Gap 23 H (12-20) BUN 64 H (9-16) mg/dL Creatinine 9.86 H* (0.5-1.4) mg/dL Estim Creat Clear Calc 6.9 Estimated GFR 4 Random Glucose 115 (60-115) mg/dL Calcium 8.2 L (8.4-10.2) mg/dL Total Bilirubin 0.6 (0.0-1.0) mg/dL AST 24 (5-31) U/L ALT 32 H (0-31) U/L Alkaline Phosphatase 124 H (39-117) U/L Troponin I High Sens 29.4 H (<3.5-17.0) ng/L NT-Pro-B Natriuret Pep 33468.3 H (<300) pg/mL Total Protein 7.6 (6.5-8.0) g/dL Albumin 4.3 (3.5-5.0) g/dL Influenza Type A (PCR) NEGATIVE (Negative) Influenza Type B (PCR) NEGATIVE (Negative) RSV RNA Qual (PCR) NEGATIVE (Negative) SARS-CoV-2 RNA (RT-PCR) NEGATIVE (Negative) T. vaginalis (PCR) NOT DETECTED (Not Detect) Bact vaginosis (PCR) NEGATIVE (Negative) C. krusei/glabrata (PCR) NOT DETECTED (Not Detect) Kimberly group (PCR) DETECTED A (Not Detect) Blood Type O Positive Antibody Screen NEGATIVE Independent Interpretation I performed an independent interpretation of an: EKG Interpretation: Rate: 75 Rhythm: NSR [place]: 45/1/143 Normal P waves. Normal ELEUTERIO. Normal QRS complex. ST T wave : no depressions, elevations qTC:471 prior studies: similar. The study has been interpreted contemporaneously by me. Radiology Impression Discussion of test interpretation with radiology: I have reviewed the radiologist's reading. Radiologist Impression: CXR: Impression: No acute processes Independent Historian Clinical information obtained from an independent historian. History obtained from or confirmed by: EMS External Record Review External record reviewed: Outpatient record, Prior outpatient labs and Prior outpatient radiology Chronic Conditions Patient?s care impacted by: Other (ESRD) Discharge Plan Discharge Clinical Impression: Acute hyperkalemia, ESRD on hemodialysis Patient Disposition: Admitted As Inpatient Interventions: Admission Worksheet (ED) Last Done: 04/22/25 07:26 Discharge Date/Time: 04/22/25 08:42
[2025-04-21 18:34] LABS: MANUAL DIFF FLAG NO
[2025-04-21 18:50] LABS: INTERNATIONAL NORM RATIO 1.3 (0.9-1.1); Prothrombin Time 15.3 SEC (11.2-13.5)
[2025-04-21 18:53] LABS: Partial Thromboplastin Time 33.4 SEC (26.7-34.1)
--- NOTE | 2025-04-21 19:06 | PC.NURSE ---
Patient called to report needing pain medication and needing a provider to see her ABRAM, pt educated on triage process and pre eval done by a provider. Labs still pending and ED providers will be in as soon as possible. pt on monitor with vitals WNL, call larsen within reach, and hot packs given
[2025-04-21 19:11] LABS: Hematocrit 26.0 % (37.0-47.0); Hemoglobin 8.1 g/dl (12.0-16.0); Imm Gran Abs Auto 0.02 X10*3/uL (0.00-0.03); Imm Gran Pct Auto 0.3 % (0.0-0.4); Lymphocytes Absolute Auto 0.6 X10*3/uL (1.2-4.9); Mean Corpuscular HGB Conc 31.2 g/dl (31.0-35.0); Mean Corpuscular Hemoglobin 30.5 pg (27.0-33.0); Mean Corpuscular Volume 97.7 fL (80.0-98.0); NRBC Abs Auto 0.000 X10*3/uL (0.0-0.012); NRBC Pct Auto 0.0 /100WBC (0.0-0.2); Platelet Count 129 X10*3/uL (160-400); Red Blood Count 2.66 X10*6/uL (4.20-5.50); White Blood Count 5.8 X10*3/uL (4.8-10.8)
[2025-04-21 19:14] LABS: Troponin-I High Sensitivity 29.4 ng/L (<3.5-17.0)
[2025-04-21 19:16] LABS: Alanine Aminotransferase 32 U/L (0-31); Albumin Level 4.3 g/dL (3.5-5.0); Alkaline Phosphatase 124 U/L (39-117); Anion Gap 23 (12-20); Aspartate Amino Transferase 24 U/L (5-31); Blood Urea Nitrogen 64 mg/dL (9-16); Calcium 8.2 mg/dL (8.4-10.2); Carbon Dioxide 24 mmol/L (22-29); Chloride 103 mmol/L (96-108); Creatinine Clr Calc Pharmacy 6.9; Estimated Glomerular Filt Rate 4; Potassium 6.0 mmol/L (3.3-5.1); Sodium 144 mmol/L (135-145); Total Protein 7.6 g/dL (6.5-8.0)
[2025-04-21 19:35] LABS: Resp Syncy Virus RNA Qual PCR NEGATIVE (Negative); SARS COV2 PCR INHOUSE NEGATIVE (Negative)
--- NOTE | 2025-04-21 19:39 | ED.CHESTPAIN ---
HPI - Chest Pain General Chief Complaint: Chest Pain Stated Complaint: CP, low hgb Time Seen by Provider: 04/21/25 19:27 History of Present Illness ED Provider: Christina Andersen HPI narrative: 39-year-old female with a medical history significant for ESRD on Friday, , Friday dialysis transitioning from [facility] nephrology to [facility] as her primary care provider is changing, presents to the ED via EMS complaining of generalized body aches. She has not been able to take her oxycodone for the last 24 hours severe pain, which the body aches have been ongoing for about 2 weeks now. She missed her dialysis session today due to severe body pain. She is now complaining of additional vaginal discharge and itching, occasional burning on urination. Those symptoms started yesterday. She was recently told her hemoglobin was low so she presents to the ED. Denies any substernal chest pain or pressure, palpitations, shortness of breath. No abdominal pain, nausea or vomiting, diarrhea or constipation. Reports whole body itching, which occurs when she misses her dialysis. No fever, chills. Related Data Home Medications ?Medication ?Instructions ?Recorded ?Confirmed cholecalciferol (vitamin D3) 50 100 mcg PO DAILY 12/30/24 04/21/25 mcg (2,000 unit) tablet (Vitamin D3) pantoprazole 40 mg tablet,delayed 40 mg PO DAILY@0630 12/30/24 04/21/25 release nifedipine 30 mg tablet,extended 30 mg PO TID 01/06/25 04/21/25 release 24 hr sildenafil (pulm.hypertension) 20 20 mg PO TID 01/06/25 04/21/25 mg tablet albuterol sulfate 90 mcg/actuation 2 puff inhalation Q6H PRN 02/08/25 04/21/25 aerosol inhaler Shortness Of Breath Or Wheezing ferric citrate 210 mg iron tablet 420 mg PO TIDWM 04/18/25 04/21/25 (Auryxia) formoterol fumarate 20 mcg/2 mL 2 ml inhalation BID PRN Wheezing 04/18/25 04/21/25 solution for nebulization minoxidil 2.5 mg tablet 7.5 mg PO DAILY 04/18/25 04/21/25 Previous Rx's ?Medication ?Instructions ?Recorded oxycodone 15 mg tablet 15 mg PO Q4H PRN Breakthrough Pain 02/10/25 #20 tabs carvedilol 25 mg tablet 25 mg PO BID 90 days #180 tabs 04/18/25 levetiracetam 250 mg tablet 250 mg PO TUTHSA 90 days #39 tabs 04/18/25 levetiracetam 500 mg tablet 500 mg PO DAILY 90 days #90 tabs 04/18/25 budesonide 0.5 mg/2 mL suspension 0.25 mg inhalation BID PRN 04/19/25 for nebulization shortness of breath or wheezing #60 mL Allergies Allergy/AdvReac Type Severity Reaction Status Date / Time ANNA Inhibitors Allergy Unknown Verified 04/21/25 18:08 adhesive tape Allergy Unknown Verified 04/21/25 18:08 amlodipine Allergy Unknown Verified 04/21/25 18:08 angiotensin II acetate, human Allergy Itching Verified 04/21/25 18:08 Beta-Blockers Allergy Itching Verified 04/21/25 18:08 (Beta-Adrenergic Bloc cinacalcet (From Sensipar) Allergy Unknown Verified 04/21/25 18:08 clonidine Allergy Anaphylaxis Verified 04/21/25 18:08 doxazosin Allergy Anaphylaxis Verified 04/21/25 18:08 epoetin michael-epbx (From Allergy Unknown Verified 04/21/25 18:08 Retacrit) epoetin beta Allergy Unknown Verified 04/21/25 18:08 furosemide Allergy Unknown Verified 04/21/25 18:08 gabapentin Allergy Anaphylaxis Verified 04/21/25 18:08 heparin Allergy Unknown Verified 04/21/25 18:08 hydralazine Allergy Anaphylaxis Verified 04/21/25 18:08 hydroxyzine Allergy Unknown Verified 04/21/25 18:08 ibuprofen (From Motrin) Allergy Unknown Verified 04/21/25 18:08 isosorbide Allergy Unknown Verified 04/21/25 18:08 labetalol Allergy Eye Verified 04/21/25 18:08 Swelling latex Allergy Itching Verified 04/21/25 18:08 levofloxacin Allergy Itching Verified 04/21/25 18:08 lisinopril Allergy Itching Verified 04/21/25 18:08 losartan Allergy Unknown Verified 04/21/25 18:08 methocarbamol Allergy Unknown Verified 04/21/25 18:08 metoprolol Allergy Unknown Verified 04/21/25 18:08 Penicillins Allergy Hives Verified 04/21/25 18:08 prednisone Allergy Unknown Verified 04/21/25 18:08 spironolactone Allergy Itching Verified 04/21/25 18:08 tramadol Allergy Unknown Verified 04/21/25 18:08 valsartan Allergy Facial Verified 04/21/25 18:08 Swelling diphenhydramine (From AdvReac Unknown Verified 04/21/25 18:08 Benadryl) dye in bendaryl pills AdvReac Itching Uncoded 02/12/25 05:59 Review of Systems Review of Systems: ROS is otherwise negative unless mentioned in HPI. [facility] Past Medical History Medical History (Updated 04/21/25 @ 21:48 by TIGIST Watt) Unspecified asthma Myofascial pain Diastolic CHF Tricuspid regurgitation Recurrent chest pain Pericardial effusion Pulmonary hypertension Iron deficiency anemia ESRD on hemodialysis Chest pain Chronic hypoxic respiratory failure Seizure disorder ESRD (end stage renal disease) on dialysis Family History Family History (Updated 04/18/25 @ 10:34 by Kassie Reyna MD) Other Diabetes mellitus Primary hypertension Social History Social History Household Members: Family and Children Housing: House Do you presently have visiting nurse or other home services: No Patient Tobacco Use Status: Never used Tobacco e-Cigarette/Vaping Use: Never Used Advance Directives: No Advance Directives Information Provided: No Do you have a plan to hurt others: No Plan service: No Current occupational status: unemployed Physical Exam Exam: Exam: Nursing notes and vital signs reviewed. Constitutional: Well-appearing, NAD. Alert. Oriented X3. Eyes: EOMI. ENT: Pharynx normal. Neck: Normal inspection. Neck supple. CVS: Normal heart rate and rhythm. Pulses normal. Respiratory: No respiratory distress. Breath sounds normal. Abdomen: Soft and nontender. Skin: Skin warm and dry. Normal skin color. Extremities: No lower extremity edema. Neuro: Oriented X 3. No motor deficit. Vital Signs: Vital Signs: Last Vital Signs Temp 98.3 F 04/21/25 20:21 Pulse 68 04/21/25 21:48 Resp 18 04/21/25 21:48 BP 185/99 H 04/21/25 21:48 Pulse Ox 98 04/21/25 21:48 O2 Del Method Room Air 04/21/25 21:48 BMI result Body Mass Index 23.4 Medications Administered Discontinued Medications Generic Name Dose Route Start Last Admin Trade Name Kayla SOLISN Reason Stop Dose Admin Dextrose 25 gm 04/21/25 19:58 04/21/25 21:42 Dextrose 50 % 25 Gm/50 Ml Syringe IVPUSH 04/21/25 19:59 Not Given ONCE ONE Diphenhydramine HCl 50 mg 04/21/25 19:34 04/21/25 20:39 Diphenhydramine Hcl 50 Mg/Ml Vial IVPUSH 04/21/25 19:35 50 mg ONCE ONE Administration Hydromorphone HCl 1 mg 04/21/25 19:34 04/21/25 20:39 Hydromorphone Hcl 1 Mg/Ml Syringe IVPUSH 04/21/25 19:35 1 mg ONCE ONE Administration Protocol Hydromorphone HCl 1 mg 04/21/25 21:43 04/21/25 21:56 Hydromorphone Hcl 1 Mg/Ml Syringe IVPUSH 04/21/25 21:44 1 mg ONCE ONE Administration Protocol Calcium Gluconate 1 gm in 50 mls @ 50 mls/hr 04/21/25 19:58 04/21/25 23:09 Calcium Gluconate IV 04/21/25 20:57 Infused ONCE ONE Infusion Insulin Human Regular 5 unit 04/21/25 19:58 04/21/25 21:42 Insulin Regular, Human 100 Unit/Ml 10 Ml Vial IVPUSH 04/21/25 19:59 Not Given ONCE ONE Sodium Zirconium Cyclosilicate 10 gm 04/21/25 19:46 04/21/25 20:39 Sodium Zirconium Cyclosilicate 10 Gm Powd.Pack PO 04/21/25 19:47 10 gm ONCE ONE Administration Medical Decision Making Medical Decision Making MDM Narrative: Upon my assessment she overall appears well. 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 She missed dialysis today because she could not leave her house due to severe body pain and aches. She does complain of some vaginal itching, but tells me she recently shaved externally. There is mild discharge, no smell. No abnormal vaginal bleeding. Some dysuria, we will obtain urinalysis. Her potassium level here is 6. She has been higher previously. I spoke with on-call nephrology Dr. Longo who was agreeable that as there were no EKG changes at this time the patient can receive treatment for hyperkalemia, as well as a dose of Lokelma. Plan to treat, reassess, and admit for dialysis tomorrow. Pending pelvic exam as well. Differential Diagnosis Differential Diagnoses: The differential diagnosis associated with the presentation includes Bacterial vaginosis, cystitis, pyelonephritis, need for dialysis, hyperkalemia, additional electrolyte abnormalities Admission/Observation Consideration of admission/observation: Escalation of care including admission/observation considered (Indicated given hyperkalemia in a dialysis patient) Lab Data MDM Lab Attestation statement: I reviewed the patient's lab results. (Hyperkalemia at 6, anemia at baseline.) 04/21/25 18:25 04/21/25 18:25 Labs: Lab Results 04/21/25 Range/Units 18:25 WBC 5.8 (4.8-10.8) X10*3/uL RBC 2.66 L (4.20-5.50) X10*6/uL Hgb 8.1 L (12.0-16.0) g/dl Hct 26.0 L (37.0-47.0) % MCV 97.7 (80.0-98.0) fL MCH 30.5 (27.0-33.0) pg MCHC 31.2 (31.0-35.0) g/dl RDW 16.2 H (11.0-16.0) % Plt Count 129 L (160-400) X10*3/uL MPV 10.4 (9.4-12.3) fL Immature Gran % (Auto) 0.3 (0.0-0.4) % Neut % (Auto) 77.2 H (45-73) % Lymph % (Auto) 10.2 L (20-40) % [place] % (Auto) 6.9 (2-11) % Eos % (Auto) 4.5 H (0-4) % Baso % (Auto) 0.9 (0-2) % Lymph # (Auto) 0.6 L (1.2-4.9) X10*3/uL [place] # (Auto) 0.4 (0.1-1.2) X10*3/uL Eos # (Auto) 0.3 (0.0-0.4) X10*3/uL Baso # (Auto) 0.1 (0.0-0.2) X10*3/uL Abs Immat Gran (auto) 0.02 (0.00-0.03) X10*3/uL Absolute Neuts (auto) 4.5 (2.0-8.3) x10*3/uL Absolute Nucleated RBC 0.000 (0.0-0.012) X10*3/uL Nucleated RBC % (auto) 0.0 (0.0-0.2) /100WBC PT 15.3 H (11.2-13.5) SEC INR 1.3 H (0.9-1.1) APTT 33.4 (26.7-34.1) SEC Sodium 144 (135-145) mmol/L Potassium 6.0 H* D (3.3-5.1) mmol/L Chloride 103 (96-108) mmol/L Carbon Dioxide 24 (22-29) mmol/L Anion Gap 23 H (12-20) BUN 64 H (9-16) mg/dL Creatinine 9.86 H* (0.5-1.4) mg/dL Estim Creat Clear Calc 6.9 Estimated GFR 4 Random Glucose 115 (60-115) mg/dL Calcium 8.2 L (8.4-10.2) mg/dL Total Bilirubin 0.6 (0.0-1.0) mg/dL AST 24 (5-31) U/L ALT 32 H (0-31) U/L Alkaline Phosphatase 124 H (39-117) U/L Troponin I High Sens 29.4 H (<3.5-17.0) ng/L NT-Pro-B Natriuret Pep 63999.3 H (<300) pg/mL Total Protein 7.6 (6.5-8.0) g/dL Albumin 4.3 (3.5-5.0) g/dL Influenza Type A (PCR) NEGATIVE (Negative) Influenza Type B (PCR) NEGATIVE (Negative) RSV RNA Qual (PCR) NEGATIVE (Negative) SARS-CoV-2 RNA (RT-PCR) NEGATIVE (Negative) Blood Type O Positive Antibody Screen NEGATIVE Independent Interpretation I performed an independent interpretation of an: EKG Interpretation: Rate: 75 Rhythm: NSR [place]: 45/1/143 Normal P waves. Normal ELEUTERIO. Normal QRS complex. ST T wave : no elevations, depressions qTC: 471 prior studies: Similar. The study has been interpreted contemporaneously by me. Radiology Impression Discussion of test interpretation with radiology: I have reviewed the radiologist's reading. Radiologist Impression: Chest X-Ray: Impression: No acute processes Independent Historian Clinical information obtained from an independent historian. History obtained from or confirmed by: EMS External Record Review External record reviewed: Outpatient record ([facility]) and Outside ED record Chronic Conditions Patient?s care impacted by: Other (ESRD) Discharge Plan Discharge Clinical Impression: Acute hyperkalemia, ESRD on hemodialysis Patient Disposition: Admitted As Inpatient Print Language: Yakut
[2025-04-21 20:21] VITALS: BP 196/113; PULSE 70; RESP 17; TEMP 36.8
[2025-04-21] MEDS: Calcium Gluconate/NaCl,Iso-Osm 1 GM/50 ML PLAST..BAG IV (20:47)
--- NOTE | 2025-04-21 20:50 | PC.NURSE ---
pt currenntly refusing insulin and dextrose for the Hyperkalemia protocal, pt states that the last time she was given Insulin that she passed out, pt was educated why we give insulin with dextrose, however pt stilll refuses, will notify provider
--- OUTSIDE RECORDS SUMMARY | 2025-04-21 21:05 | XMS_ITS | Clinical Summary ---
Author Organization [facility] Address [address] [place] [address] Phone Care Team Providers Care Assistant Professor Of Business Name Role Phone Kassie Reyna MD Primary [...] while on anticoagulation. She has seen at [facility] in July 2024 by ENT for management [...] Department Care Team Description 04/03/2025 Orders Only [facility] [address] [place] [address] Lita Clarke NP ESRD (end stage renal disease) on dialysis (Primary Dx) 02/02/2025 Telephone [facility] [address], [address] [place] [address] Lita Nava RN 01/21/2025 Telephone [facility] [address], [address] [place] [address] Luz Martinez RN from Last 3 Months Social History Tobacco [...] (#1) 2024 2, 04/09/2016, 05/05/2015 COVID-19 VACCINE (2024- season) 2025 Adult Td,Tdap Booster 03/04/2029 03/04/2019, [...] cell phone pictures and video calls like [employer]. If patient is found to be recording [...] RNA PCR Not Detected Not Detected IU/mL [facility] Comment: (NOTE) Assay Range: 15-100,000,000 IU/ml In rare instances, there might be a 1.0 - 1.5 log increase measured viral load observed in individuals with genotype 3a and 4. Please refer any questions to the Molecular Diagnostics Lab at extension [phone]. This is a quantitative assay utilizing real-time [...] LAB BLOOD BKR ORDERABLES Fi nal Result [facility] [address] [place] [address] from Last 3 Months or Most Recently Relevant to Health Maintenance Insurance MEDICARE PART A & B [facility] MEDICAID MEDICARE PART A & B [facility] MEDICAID MEDICARE PART A & B [place] MED[place] PART A & B [facility] A & B [facility] [place] MEDICARE PART A & B [facility] MEDICARE PART A & B [facility] MEDICARE PART A & B [place] & B [place] MEDICARE PART A & B [facility] Advance Directives For more information, please contact: [phone] (9AM - 5PM [facility], Friday-Friday) * Full Code (Latest Code Status on File) Date Activated Date Inactivated Comments 11/01/2024 1:38 PM Question Answer Comments Code Status Confirmed With: Patient Care Teams Assistant Professor Of Business Relationship Specialty Start Date End Date Maribell, Kassie Mechelle, MD [address] [place] [address] PCP - General Internal Medicine 12/17/21 Additional Source Comments The information contained in this document represents components of the legal health record. It is not the complete legal health record.[facility]
--- OUTSIDE RECORDS SUMMARY | 2025-04-21 21:05 | XMS_ITS | Encounter Summary ---
Author Organization [facility], Address [address] [place] [address] Phone Care Team Providers Care Subassemblies Wirer Name Role Phone Antonio eSllers MD Primary Care Provider [phone]- [phone] Encounter Details Date Type Department Care Team (Late st Contact Info) Description 01/10/2022 Documentation Only [facility], [address] [place] [address] Malikc Arechiga DO [address] [place], [place] [...] on filedocumented in this encounter Care Teams Subassemblies Wirer Relationship Specialty Start Date End Date Antonio Sellers MD [address] [place], [place] PCP - General Internal Medicine 04/04/25 documented as of this encounter
--- OUTSIDE RECORDS SUMMARY | 2025-04-21 21:05 | XMS_ITS | Encounter Summary ---
Author Organization [facility] Address [address] [place] [address] Care Team Providers Care Truckload Owner Operator Name Role Phone Kassie Reyna MD Primary Care Provider [phone]- [phone] Dialysis, [facility] Unavailable [phone] Lana Quintana MD Unavailable Gómez Whitley MD Unavailable [phone] Encounter Details Date Type Department Care Team (Late st Contact Info) Description 06/14/2022 Scanned Document [address] [facility] [address] [place] [phone] Provider, Generic Social History Tobacco Use [...] on filedocumented in this encounter Care Teams Truckload Owner Operator Relationship Specialty Start Date End Date Kassie Reyna MD [address] [place] [address] PCP - General Internal Medicine [facility] [address] [place] [address] Dialysis Unit 09/05/22 Lana Quintana MD [address] [place] [address] Physician Nephrology 09/11/22 Gómez Whitley MD [address] [place] [address] Surgery, General 10/25/22 documented as of this encounter
--- OUTSIDE RECORDS SUMMARY | 2025-04-21 21:05 | XMS_ITS | Encounter Summary ---
Author Organization [facility], Address [address] [place] [address] Phone Care Team Providers Care Chief Controller Tower Name Role Phone Antonio Sellers MD Primary Care Provider [phone]- [phone] Reason for Visit * Reason Comments Med Refill Encounter Details Date Type Department Care Team (Late st Contact Info) Description 01/22/2022 Refill [facility] [address] [place] [phone] Waqar Wellnigton MD [address] [place] [phone] Social History Tobacco Use Types Packs/Day Years [...] AM EDT documented as of this encounter Functional Status documented as of this encounter Plan of Treatment Not on file documented as of this encounter Visit Diagnoses Not on filedocumented in this encounter Care Teams Chief Controller Tower Relationship Specialty Start Date End Date Antonio Sellers MD [address] [place], [place] PCP - General Internal Medicine 04/04/25 documented as of this encounter
--- OUTSIDE RECORDS SUMMARY | 2025-04-21 21:06 | XMS_ITS | Encounter Summary ---
Author Organization [facility] Address [address] [place] [address] Care Team Providers Care Microbiology Coordinator Name Role Phone Kassie Reyna MD Primary Care Provider [phone]- [phone] Encounter Details Date Type Department Care Team (Latest Contact Info) Description 10/04/2015 Transcribed Orders [facility] [address] [place] [address] Sancho Dowd MD [address] [place] [address] Pre-transplant evaluation for end stage [...] EDT) ECG - HEART RATE 63 bpm [facility] EKG QRS Interval 87 ms [facility] EKG QT Interval 423 ms [facility] EKG QTC Interval 434 ms [facility] EKG P [place] 73 deg [facility] EKG QRS [place] 31 deg [facility] EKG T Wave [place] 28 deg [facility] EKG P-R Interval 157 msec [facility] EKG Comment::Sinus rhythm::Elect ronically Signed On 10-05-2015 15:39:32 EDT by Horace Rajan MD 10/04/2015 2:12 PM EDT us Sancho Dowd MD ECG ORDERABLES Final Resul t [facility] EKG documented in this encounter Visit [...] documented as of this encounter Care Teams Microbiology Coordinator Relationship Specialty Start Date End Date Kassie Reyna MD [facility] [address] [address] PCP - General Internal Medicine 07/29/22 documented as of this encounter
--- OUTSIDE RECORDS SUMMARY | 2025-04-21 21:06 | XMS_ITS | Encounter Summary ---
Author Organization [facility] Address [address] [place] [address] Care Team Providers Care Driver License Examiner Name Role Phone Kassie Reyna MD Primary Care Provider +1- [phone] Encounter Details Date Type Department Care Team (Late st Contact Info) Description 10/10/2015 Abstract [facility] [address] [facility] [address] [facility] [address] [place] [address] Radha Luna RN Social History Tobacco Use [...] documented as of this encounter Care Teams Driver License Examiner Relationship Specialty Start Date End Date Kassie Reyna MD [facility] [address] [address] PCP - General Internal Medicine 07/29/22 documented as of this encounter
--- OUTSIDE RECORDS SUMMARY | 2025-04-21 21:06 | XMS_ITS | Encounter Summary ---
Author Organization [facility], Address [address] [place] [address] Phone Care Team Providers Care Crm Marketing Manager Name Role Phone Antonio Sellers MD Primary Care Provider [phone]- [phone] Reason for Visit * Reason Comments Med Refill Encounter Details Date Type Department Care Team (Late st Contact Info) Description 02/05/2022 Refill [facility] [address] [place] [phone] Waqar Wellington MD [address] [place] [phone] Social History Tobacco Use Types Packs/Day Years [...] on filedocumented in this encounter Care Teams Crm Marketing Manager Relationship Specialty Start Date End Date Antonio Sellers MD [address] [place], [place] PCP - General Internal Medicine 04/04/25 documented as of this encounter
--- OUTSIDE RECORDS SUMMARY | 2025-04-21 21:06 | XMS_ITS | Encounter Summary ---
Author Organization [facility] Address [address] [place] [address] Care Team Providers Care Ic Design Manager Name Role Phone Kassie Reyna MD Primary Care Provider [phone]- [phone] Encounter Details Date Type Department Care Team (Late st Contact Info) Description 08/18/2023 Abstract [facility] [address] [facility] [address] [facility] [address] [place] [address] Taylor De León, MIKE Social History Tobacco [...] documented as of this encounter Care Teams Ic Design Manager Relationship Specialty Start Date End Date Kassie Reyna MD [address] [facility] [address] [place] [address] PCP - General Internal Medicine 07/29/22 documented as of this encounter
--- OUTSIDE RECORDS SUMMARY | 2025-04-21 21:06 | XMS_ITS | Encounter Summary ---
Author Organization [facility] Address [address] [place] [address] Care Team Providers Care Funder Name Role Phone Kassie Reyna MD Primary Care Provider +1- [phone] Encounter Details Date Type Department Care Team (Late st Contact Info) Description 10/16/2016 Scanned Document [facility] [address] [facility] [address] [facility] [address] [place] [address] Kassie Altamirano MD [address] [place] [phone] Social History Tobacco Use Types Packs/Day [...] documented as of this encounter Care Teams Funder Relationship Specialty Start Date End Date Kassie Reyna MD [address] [address] PCP - General Internal Medicine 07/29/22 documented as of this encounter
--- OUTSIDE RECORDS SUMMARY | 2025-04-21 21:06 | XMS_ITS | Encounter Summary ---
Author Organization [facility] Address [address] [place] [address] Care Team Providers Care After School Coordinator Name Role Phone Kassie Reyna MD Primary Care Provider +1- [phone] Encounter Details Date Type Department Care Team (Late st Contact Info) Description 09/12/2015 Scanned Document [facility] [address] [facility] [address] [facility] 4th [place] [address] Malick Phan MD [address] [place] [address] [place] [address] Social History Tobacco Use Types Packs/Day Years [...] MD LAB BLOOD ORDERABLES Final Resul t [facility] [place], [place], [facility] documented in this encounter Visit Diagnoses Not [...] documented as of this encounter Care Teams After School Coordinator Relationship Specialty Start Date End Date Kassie Reyna MD [address] [phone] PCP - General Internal Medicine 07/29/22 documented as of this encounter
--- OUTSIDE RECORDS SUMMARY | 2025-04-21 21:06 | XMS_ITS | Encounter Summary ---
Author Organization [facility] Address [address] [place] [address] Phone Care Team Providers Care Geomorphology Teacher Name Role Phone Kassie Reyna MD Primary Care Provider + Encounter Details Date Type Department Care Team (Late st Contact Info) Description 11/11/2024 Procedure Pass [facility] US [address] [place] [address] Social History Tobacco Use Types Packs/Day Years [...] on filedocumented in this encounter Care Teams Geomorphology Teacher Relationship Specialty Start Date End Date Kassie Reyna MD [address] [place] [address] PCP - General Internal Medicine 12/17/21 documented as of this encounter Additional Source Comments The information contained in this document represents components of the legal health record. It is not the complete legal health record.[facility]
--- OUTSIDE RECORDS SUMMARY | 2025-04-21 21:06 | XMS_ITS | Encounter Summary ---
Author Organization [facility] Address [address] [place] [address] Care Team Providers Care Sign Painter Helper Name Role Phone Kassie Reyna MD Primary Care Provider +1- [phone] Encounter Details Date Type Department Care Team (Late st Contact Info) Description 05/30/2023 Scanned Document INTERFACE DEFAULT [address] [place] [id number] System, Provider Not In Social History Tobacco [...] documented as of this encounter Care Teams Sign Painter Helper Relationship Specialty Start Date End Date Kassie Reyna MD [address] [address] PCP - General Internal Medicine 07/29/22 documented as of this encounter
--- OUTSIDE RECORDS SUMMARY | 2025-04-21 21:06 | XMS_ITS | Encounter Summary ---
Author Organization [facility] Address [address] [place] [address] Phone Care Team Providers Care Director Of Infection Control Name Role Phone Kassie Reyna MD Primary Care Provider + Encounter Details Date Type Department Care Team (Late st Contact Info) Description 11/16/[address], M[address] [facility], 2nd Floor, [address] [place] [address] Social History Tobacco Use Types Packs/Day Years [...] cell phone pictures and video calls like [employer]. If patient is found to be recording [...] on filedocumented in this encounter Care Teams Director Of Infection Control Relationship Specialty Start Date End Date Kassie Reyna MD [address] [place] [address] PCP - General Internal Medicine 12/17/21 documented as of this encounter Additional Source Comments The information contained in this document represents components of the legal health record. It is not the complete legal health record.[facility]
--- OUTSIDE RECORDS SUMMARY | 2025-04-21 21:06 | XMS_ITS | Encounter Summary ---
Author Organization [facility] Address [address] [place] [address] Phone Care Team Providers Care Skidder Name Role Phone Kassie Reyna MD Primary Care Provider + Encounter Details Date Type Department Care Team (Late st Contact Info) Description 11/16/[address], [address] [facility], 2nd Floor, [address] [place] [address] Social History Tobacco Use Types Packs/Day Years [...] cell phone pictures and video calls like [employer]. If patient is found to be recording [...] on filedocumented in this encounter Care Teams Skidder Relationship Specialty Start Date End Date Kassie Reyna MD [address] [place] [address] PCP - General Internal Medicine 12/17/21 documented as of this encounter Additional Source Comments The information contained in this document represents components of the legal health record. It is not the complete legal health record.[facility]
--- OUTSIDE RECORDS SUMMARY | 2025-04-21 21:06 | XMS_ITS | Encounter Summary ---
Author Organization [facility] Address [address] [place] [address] Care Team Providers Care Pan Operator Name Role Phone Kassie Reyna MD Primary Care Provider +1- [phone] Encounter Details Date Type Department Care Team (Late st Contact Info) Description 07/24/2015 Scanned Document [facility] 800 [facility] [address] [place] [address] External, Provider Social History Tobacco Use Types [...] documented as of this encounter Care Teams Pan Operator Relationship Specialty Start Date End Date Kassie Reyna MD [address] [address] PCP - General Internal Medicine 07/29/22 documented as of this encounter
--- OUTSIDE RECORDS SUMMARY | 2025-04-21 21:06 | XMS_ITS | Encounter Summary ---
Author Organization [facility] and [facility] Address [address] [place] [address] Care Team Providers Care Protector Plate Attacher Name Role Phone Kassie Reyna MD Primary Care Provider +1- [phone] Encounter Details Date Type Department Care Team (Late st Contact Info) Description 09/17/2016 Scanned Document [facility] 800 [facility] [address] [place] [address] External, Provider Social History Tobacco Use Types [...] documented as of this encounter Care Teams Protector Plate Attacher Relationship Specialty Start Date End Date Kassie Reyna MD [address] [address] PCP - General Internal Medicine 07/29/22 documented as of this encounter
--- OUTSIDE RECORDS SUMMARY | 2025-04-21 21:06 | XMS_ITS | Encounter Summary ---
Author Organization [facility] and [facility] Address [address] [place] [address] Care Team Providers Care Hand Stitcher Name Role Phone Kassie Reyna MD Primary Care Provider +1- [phone] Encounter Details Date Type Department Care Team (Late st Contact Info) Description 08/22/2015 Abstract [facility] [address] [facility] [address] [facility] [address] [place] [address] Benjamin Morel Social History Tobacco Use Types [...] as of this encounter Care Teams Hand Stitcher Relationship Specialty Start Date End Date Kassie Reyna MD [address] [address] PCP - General Internal Medicine 07/29/22 documented as of this encounter
--- OUTSIDE RECORDS SUMMARY | 2025-04-21 21:06 | XMS_ITS | Patient Health Record ---
Author Organization [facility] Address [address] [place] [address] [address] [place], [place] [id number] Support Name Relationship Address Phone HIMA OROZCO Guarantor Unknown Reason For Referral No Information Plan Of Treatment No Information
--- OUTSIDE RECORDS SUMMARY | 2025-04-21 21:06 | XMS_ITS | Encounter Summary ---
Author Organization [facility] Address [address] [place] [address] Care Team Providers Care Embosser Operator Name Role Phone Kassie Reyna MD Primary Care Provider +1- [phone] Dialysis, [facility] Unavailable +1 -[phone] Lana Quintana MD Unavailable Gómez Whitley MD Unavailable Encounter Details Date Type Department Care Team (Late st Contact Info) Description 06/25/2023 Mobile [facility] Department of Nephrology [address] [address] Lana Quintana MD [address] [place] [address] Vitamin D deficiency (Primary Dx) Social History [...] Primary documented in this encounter Care Teams Embosser Operator Relationship Specialty Start Date End Date Kassie Reyna MD [address] [place] [address] PCP - General Internal Medicine 12/24/21 Dialysis, [facility] [address] [place] [address] Dialysis Unit 09/05/22 Lana Quintana MD [address] [place] [address] Physician Nephrology 09/11/22 Gómez Whitley MD [address] [place] [address] Surgery, General 10/25/22 documented as of this encounter
--- OUTSIDE RECORDS SUMMARY | 2025-04-21 21:06 | XMS_ITS | Encounter Summary ---
Author Organization [facility], Address [address] [place] [address] Phone Care Team Providers Care Correctional Program Specialist Name Role Phone Antonio Sellers MD Primary Care Provider +1- [phone] Encounter Details Date Type Department Care Team (Late st Contact Info) Description 02/03/2025 Documentation Only [facility], [address] [place] [address] Malick Arechiga [address] [place] [address] Social History Tobacco Use Types [...] on filedocumented in this encounter Care Teams Correctional Program Specialist Relationship Specialty Start Date End Date Antonio Sellers MD [address] [place], [place] PCP - General Internal Medicine 04/04/25 documented as of this encounter
--- OUTSIDE RECORDS SUMMARY | 2025-04-21 21:06 | XMS_ITS | Encounter Summary ---
Author Organization [facility], Address [address] [place] [address] Phone Care Team Providers Care Supervisor Furnace Process Name Role Phone Antonio Sellers MD Primary Care Provider +1- [phone] Encounter Details Date Type Department Care Team (Late st Contact Info) Description 04/12/2025 Treatment [facility], [address] [place] [address] Malick Arechiga DO [address] [place] [address] End stage renal disease; Dependence on renal dialysis Social History Tobacco Use Types Packs/Day Years [...] as of this encounter Miscellaneous Notes * Dialysis Note - Malick Arechiga DO - 04/12/2025 12:00 AM EST Patient: Flavio Morris : 1985 C: [facility] Note Type: Dialysis Rounds-Comp Service Date: 04/12/2025 This patient was personally seen [id number] for a complete visit as part of routine monthly dialysis care for end stage renal disease. Attending Ferryboat Deckhand: MALICK ARECHIGA Dialysis Location: [facility] Schedule: Shift: 2 OVERVIEW PATIENT HISTORY COMMENTS: She is having a lot of GI complaints. She needs to follow-up with her external relations director. She has a history of gastric ulcers. HOME MEDICATIONS Current [facility] Outpatient Medications albuterol HFA (PROVENTIL HFA;VENTOLIN HFA) 108 (90 Base) MCG/ACT inhaler Inhale 2 puffs every 4 (four) hours if needed for wheezing Start Date: amitriptyline (ELAVIL) 25 MG tablet Reported on 06/28/2020 Start Date: azithromycin (ZITHROMAX) 250 MG tablet Reported on 06/28/2020 Start Date: Breo Ellipta 200-25 MCG/ACT aerosol powder Start Date: 05/25/2022 calcitriol (ROCALTROL) 0.25 MCG capsule Start Date: 04/12/2020 Calcium Acetate, Phos Binder, 667 MG capsule Start Date: 06/06/2022 calcium carbonate (TUMS) 500 MG chewable tablet Chew 2 tablets at bed time Start Date: 01/08/2017 carvedilol (COREG) 25 MG tablet Take 6.25 mg by mouth in the morning and 6.25 mg in the evening. Start Date: cholecalciferol (VITAMIN D-3) 1.25 MG (23081 UT) capsule Take 50,000 Units by mouth Start Date: 01/09/2017 clindamycin (CLEOCIN) 150 MG capsule Reported on 06/28/2020 Start Date: Clobetasol Prop Emollient Base 0.05 % emollient cream Start Date: cloNIDine (CATAPRES) 0.1 MG tablet Take 0.1 mg by mouth in the morning and 0.1 mg at noon and 0.1 mg in the evening. Start Date: cloNIDine (CATAPRES) 0.2 MG tablet Start Date: 05/20/2022 cloNIDine 0.3 MG/24HR patch weekly Place on the skin Start Date: cyclobenzaprine (FLEXERIL) 10 MG tablet Reported on 06/28/2020 Start Date: doxazosin (CARDURA) 2 MG tablet Take 2 mg by mouth every night Start Date: ergocalciferol 1.25 MG (60986 UT) capsule Take 50,000 Units by mouth 1 (one) time per week Start Date: Ferric Citrate (Auryxia) 1 GM 210 MG(Fe) tablet Take 2 tablets by mouth 3 (three) times a day before meals Start Date: fluticasone HFA (FLOVENT HFA) 110 MCG/ACT inhaler Inhale 1 puff 1 (one) time each day Rinse mouth with water after use to reduce aftertaste and incidence of candidiasis. Do not swallow. Start Date: furosemide (LASIX) 40 MG tablet Reported on 06/28/2020 Start Date: hydrALAZINE (APRESOLINE) 100 MG tablet 25 mg in the morning and 25 mg in the evening and 25 mg before bedtime. Start Date: 09/16/2019 hydrALAZINE (APRESOLINE) 25 MG tablet Reported on 06/28/2020 Start Date: hydrALAZINE 50 MG tablet Start Date: 06/06/2022 isosorbide dinitrate (ISORDIL) 40 MG tablet Reported on 06/28/2020 Start Date: labetalol (NORMODYNE) 200 MG tablet Reported on 06/28/2020 Start Date: labetalol (NORMODYNE) 300 MG tablet Start Date: levETIRAcetam (KEPPRA) 250 MG tablet TAKE 1 TABLET BY MOUTH ONCE DAILY ON DAYS OF DIALYSIS ONLY Start Date: 10/04/2015 levETIRAcetam (KEPPRA) 500 MG tablet Take 1 tablet by mouth 1 (one) time each day Start Date: losartan (COZAAR) 50 MG tablet Start Date: 04/24/2020 metoprolol succinate XL (TOPROL-XL) 25 MG 24 hr tablet Reported on 06/28/2020 Start Date: metoprolol succinate XL (TOPROL-XL) 50 MG 24 hr tablet Reported on 06/28/2020 Start Date: Multiple Vitamins-Minerals (MULTIVITAMIN ADULT PO) Reported on 06/28/2020 Start Date: Multiple Vitamins-Minerals (RenaPlex-D) tablet Take 1 tablet by mouth Start Date: 04/22/2019 NIFEdipine (PROCARDIA) 10 MG capsule Reported on 06/28/2020 Start Date: NIFEdipine CC (ADALAT CC) 60 MG 24 hr tablet Take 1 tablet by mouth 1 (one) time each day Start Date: NIFEdipine XL (PROCARDIA XL) 90 MG 24 hr tablet Reported on 06/28/2020 Start Date: oxyCODONE (ROXICODONE) 15 MG immediate release tablet Reported on 06/28/2020 Start Date: oxyCODONE (ROXICODONE) 5 MG immediate release tablet Take 10 mg by mouth every 4 (four) hours if needed Start Date: 02/23/2018 oxyCODONE-acetaminophen (PERCOCET) 5-325 MG per tablet Reported on 06/28/2020 Start Date: torsemide (DEMADEX) 10 MG tablet Take 40 mg by mouth in the morning and 40 mg in the evening. Start Date: traMADol (ULTRAM) 50 MG tablet Reported on 06/28/2020 Start Date: traZODone (DESYREL) 50 MG tablet Reported on 06/28/2020 Start Date: Current [facility] Allergies Allergen: ANNA INHIBITORS Allergen: AMLODIPINE Reaction: Itching Rash Severity: Low Low Allergen: ANGIOTENSIN RECEPTOR BLOCKERS Allergen: BETA ADRENERGIC BLOCKERS Allergen: CINACALCET Reaction: Itching Rash Severity: High High Allergen: FUROSEMIDE Reaction: Rash Severity: Low Allergen: GABAPENTIN Reaction: Anaphylaxis Itching Other (see comments) Severity: High HighHigh Allergen: HYDRALAZINE Reaction: Itching Nausea Severity: Low Low Allergen: IBUPROFEN Reaction: Swelling Severity: High Allergen: KEFLEX [CEPHALEXIN] Allergen: LATEX Reaction: Itching Rash Severity: High High Allergen: LISINOPRIL Reaction: Swelling Severity: High Allergen: LOSARTAN Reaction: Itching Swelling Severity: High High Allergen: METOPROLOL Reaction: Rash Severity: Low Allergen: MIRCERA [METHOXY POLYETHYLENE GLYCOL-EPOETIN BETA] Reaction: Itching Rash Severity: High High Allergen: MORPHINE Reaction: Other (see comments) Allergen: PENICILLINS Reaction: Rash Other (see comments) Severity: Low Low Allergen: PREDNISONE Reaction: Other (see comments) Rash Severity: High High Allergen: TRAMADOL Reaction: Itching Swelling Rash Severity: Low LowLow DIALYSIS PRESCRIPTION Treatment Data Treatment Date: 04/12/2025 started at: 1:14 PM Dialysate / Machine Temp (prescribed): 36.0*C Dialysate / Machine Temp (actual): 36.0*C BFR (prescribed): 400 BFR (average delivered): 400 DFR (prescribed): Manual 800 DFR (average delivered): 800 Prescribed Time: 03:30 Actual Time: 02:15 EDW (kg): 61.0 Dialyzer: FX CorAL 60 Dialysate: 2.0 K, 3.0 Ca, 1.0 Mg, 100 Dextrose (N2301) Sodium: 138 Bicarb: 35 Pre Dialysis Vitals Pre BP Sit: 153/91 Pre Wt (kg): 64.8 EDW Deviation (kg): 3.8 Temp: 98.8*F Post Dialysis Vitals Post BP Sit: 156/91 Post Wt (kg): 62.6 BP AND FLUID ASSESSMENT IDWG (kg) ?- 04/12/2025 ?- 03/22/2025 0.3 - 03/03/2025 Post BP Sit 156/91 - 04/12/2025 160/87 - 03/22/2025 180/92 - 03/03/2025 Post Wt (kg) 62.6 - 04/12/2025 61.0 - 03/22/2025 61.7 - 03/03/2025 EDW (kg) 61.0 - 04/12/2025 61.0 - 03/22/2025 62.5 - 03/03/2025 Deviation (kg) 1.6 - 04/12/2025 0.0 - 03/22/2025 -0.8 - 03/03/2025 ADEQUACY ASSESSMENT spKt/V (Daugirdas II) 1.15 (04/12/25) 0.89 (03/22/25) 0.83 (03/03/25) Kt/V, Natural Log 1.46 (05/25/24) 1.15 (05/11/24) 1.29 (04/20/24) eKdrt/V 0.62 (03/03/25) 3.17 (12/07/24) % Urea Reduction 63 (04/12/25) 54 (03/22/25) 52 (03/03/25) UREA REDUCTION RATIO (%) 73 (05/25/24) 64 (05/11/24) 66 (04/20/24) BUN 72 (04/12/25) 79 (03/22/25) 56 (03/03/25) BUN Post Dialysis 27 (04/12/25) 36 (03/22/25) 27 (03/03/25) Creatinine 11.33 (03/22/25) 8.95 (02/24/25) 10.65 (02/12/25) Bicarbonate (CO2) 23 (03/22/25) 25 (03/03/25) 30 (02/24/25) Sodium 142 (03/22/25) 135 (02/24/25) 138 (02/12/25) Missed Treatments 12 - Last 30 days 22 - Last 60 days Most recently missed on 04/16/2025 ACCESS ASSESSMENT ANEMIA ASSESSMENT Hemoglobin 8.0 (04/12/25) 8.7 (03/03/25) 8.4 (02/24/25) Hgb 8.1 (05/11/24) 8.0 (04/28/24) 8.1 (04/24/24) Iron Saturation (TSat) 64 (03/22/25) 31 (02/24/25) 30 (02/12/25) Ferritin 1,104 (03/22/25) 739 (02/24/25) 1,723 (02/12/25) Iron 167 (03/22/25) 58 (02/24/25) 64 (02/12/25) TIBC 260 (03/22/25) 188 (02/24/25) 215 (02/12/25) Reticulocyte Hemoglobin 30.4 (02/12/25) 34.0 (10/26/24) 32.8 (09/02/24) MCV 98 (02/12/25) 99 (10/26/24) 95 (09/02/24) Platelets 115 (05/11/24) COMMENTS: patient will only use name-brand procrit BMM ASSESSMENT Calcium 7.2 03/22/25 7.5 02/24/25 7.1 02/12/25 Calcium, Adjusted Total 7.6 05/11/24 Corrected Calcium 6.6 03/22/25 7.6 02/24/25 6.9 02/12/25 Phosphorus 6.7 03/22/25 5.4 02/24/25 5.9 02/12/25 Phosphorus, Serum 5.7 05/11/24 Calcium Phosphorus Product 48 03/22/25 41 02/24/25 42 02/12/25 Ca*PO4 43.3 05/11/24 PTH 47 03/22/25 56 02/24/25 60 02/12/25 Vitamin D, 25-OH, Total 27.5 02/12/25 41.3 09/02/24 Magnesium 2.2 03/22/25 2.1 02/24/25 2.3 02/12/25 Alkaline Phosphatase 133 05/11/24 Aluminum 16 02/12/25 9 09/02/24 NUTRITION ASSESSMENT Albumin 4.7 03/22/25 3.9 02/24/25 4.2 02/12/25 Potassium 5.4 04/12/25 5.0 03/22/25 4.7 03/03/25 eNPCR 0.60 03/03/25 1.79 12/07/24 Glucose 100 05/11/24 TRANSPLANT STATUS COMMENT COMMENTS: work up ongoing in [place] PHYSICAL EXAM COMMENTS: Right lower extremity edema. CT scan of pelvis done. Awaiting results. ADDITIONAL LABS WBC 2.42 (02/12/25) 5.34 (10/26/24) 6.04 (09/02/24) White Blood Cells 4.7 (05/11/24) Hepatitis B Surface Ab 57 (02/12/25) 64 (09/02/24) ALT (SGPT) 33 (04/06/25) 49 (04/02/25) 24 (03/22/25) AST (SGOT) 20 (04/06/25) 24 (04/02/25) 22 (03/05/25) ADDITIONAL COMMENT COMMENTS: Patient unstable, rarely showing up for dialysis. She goes to multiple hospital ER's with c/o fistula arm pain but no findings. Labs ordered. Counseled on need to come to dialysis regularly. Medications reviewed Physical Exam Vital signs: reviewed Lungs: clear Edema: none Impression 1.Adequacy: KT/V was assessed and the dialysis prescription was adjusted as needed. 2.Access: Dialysis access function is acceptable. 3.Hypertension: Blood pressure control and volume status are at goal. 4.Anemia: Labs reviewed and adjustments to regimen made according to anemia management protocol. Hemoglobin running low currently getting micera and iron working on this currently. 5.Mineral Bone Disease: Labs reviewed. Diet and medication adjustment as per protocol. 6.Nutrition: Labs reviewed. Dietary adjustments made in conjunction with delinquency counselor. 7.Transplant: The patient will be referred for transplant evaluation. Is seeing transplant team in [place]. Signed by: MALICK ARECHIGA DO on 04/17/2025 at 01:15:18 PM Transcribed by: MALICK ARECHIGA DO on 04/17/2025 at 01:15:18 PM documented in this encounter Plan of Treatment Not on file documented as of this encounter Visit Diagnoses Diagnosis End stage renal disease Dependence on renal dialysis documented in this encounter Care Teams Supervisor Furnace Process Relationship Specialty Start Date End Date Antonio Sellers MD [facility] [place], [place] PCP - General Internal Medicine 04/04/25 documented as of this encounter
--- OUTSIDE RECORDS SUMMARY | 2025-04-21 21:06 | XMS_ITS | Encounter Summary ---
Author Organization [facility] Address [address] [place] [address] Care Team Providers Care News Videotape Editor Name Role Phone Kassie Reyna MD Primary Care Provider +1- [phone] Encounter Details Date Type Department Care Team (Late st Contact Info) Description 02/15/2016 Scanned Document [facility] [address] [place] [address] External, Provider Social History Tobacco Use Types [...] AM EDT R/O COVID-19 03/01/2021 03/01/2021 03/01/2021 5:3 2 PM EDT R/O COVID-19 03/05/2021 03/05/2021 03/05/2021 [...] documented as of this encounter Care Teams News Videotape Editor Relationship Specialty Start Date End Date Kassie Reyna MD [address] [address] PCP - General Internal Medicine 07/29/22 documented as of this encounter
--- OUTSIDE RECORDS SUMMARY | 2025-04-21 21:06 | XMS_ITS | Encounter Summary ---
Author Organization [facility] Address [address] [place] [address] Care Team Providers Care Car Pre Cooler Name Role Phone Kassie Reyna MD Primary Care Provider +1- [phone] Encounter Details Date Type Department Care Team (Late st Contact Info) Description 10/04/2015 Scanned Document [facility] 800 [facility] [address] [place] [address] Benjamin Morel Social History Tobacco Use Types [...] documented as of this encounter Care Teams Car Pre Cooler Relationship Specialty Start Date End Date Kassie Reyna MD [facility] [address] [address] PCP - General Internal Medicine 07/29/22 documented as of this encounter
--- OUTSIDE RECORDS SUMMARY | 2025-04-21 21:06 | XMS_ITS | Encounter Summary ---
Author Organization [facility] Address [address] [place] [address] Care Team Providers Care Music Orchestrator Name Role Phone Kassie Reyna MD Primary Care Provider +1- [phone] Encounter Details Date Type Department Care Team (Late st Contact Info) Description 08/21/2017 Abstract [facility] 800 [facility] [address] [place] [address] Cinthia Jaramillo RN Social History Tobacco Use [...] documented as of this encounter Care Teams Music Orchestrator Relationship Specialty Start Date End Date Kassie Reyna MD [address] [address] PCP - General Internal Medicine 07/29/22 documented as of this encounter
--- OUTSIDE RECORDS SUMMARY | 2025-04-21 21:06 | XMS_ITS | Encounter Summary ---
Author Organization [facility] Address [address] [place] [address] Care Team Providers Care Mainstreaming Facilitator Name Role Phone Kassie Reyna MD Primary Care Provider +1- [phone] Encounter Details Date Type Department Care Team (Late st Contact Info) Description 03/07/2020 Abstract [facility] 800 [facility] 800 [facility] [address] [place] [address] Katey Parr Social History Tobacco Use Types [...] documented as of this encounter Care Teams Mainstreaming Facilitator Relationship Specialty Start Date End Date Kassie Reyna MD [address] [address] PCP - General Internal Medicine 07/29/22 documented as of this encounter
--- OUTSIDE RECORDS SUMMARY | 2025-04-21 21:06 | XMS_ITS | Encounter Summary ---
Author Organization [facility] and [facility] Address [address] [place] [address] Care Team Providers Care Stopper Setter Name Role Phone Kassie Reyna MD Primary Care Provider +1- [phone] Encounter Details Date Type Department Care Team (Late st Contact Info) Description 08/22/2015 Scanned Document [facility] 800 [facility] 800 [facility] [address] [place] [address] Benjamin Morel Social History Tobacco Use Types [...] documented as of this encounter Care Teams Stopper Setter Relationship Specialty Start Date End Date Kassie Reyna MD [address] [address] PCP - General Internal Medicine 07/29/22 documented as of this encounter
--- OUTSIDE RECORDS SUMMARY | 2025-04-21 21:06 | XMS_ITS | Encounter Summary ---
Author Organization [facility] Address [address] [place] [address] Phone Care Team Providers Care Retail Training Manager Name Role Phone Kassie Reyna MD Primary Care Provider + Encounter Details Date Type Department Care Team (Late st Contact Info) Description 11/27/2024 Procedure Pass [facility] Imaging - RF/IR [address] [place] [address] Social History Tobacco Use Types Packs/Day Years [...] cell phone pictures and video calls like [employer]. If patient is found to be recording [...] filedocumented in this encounter Care Teams Retail Training Manager Relationship Specialty Start Date End Date Kassie Reyna MD [address] [place] [address] PCP - General Internal Medicine 12/17/21 documented as of this encounter Additional Source Comments The information contained in this document represents components of the legal health record. It is not the complete legal health record.[facility]
--- OUTSIDE RECORDS SUMMARY | 2025-04-21 21:06 | XMS_ITS | Encounter Summary ---
Author Organization [facility] Address [address] [place] [address] Care Team Providers Care Art Therapist Name Role Phone Kassie Reyna MD Primary Care Provider +1- [phone] Encounter Details Date Type Department Care Team (Late st Contact Info) Description 10/04/2015 Scanned Document [facility] 800 [facility] 800 [facility] [address]th [place] [address] Benjamin Morel Social History Tobacco Use Types [...] documented as of this encounter Care Teams Art Therapist Relationship Specialty Start Date End Date Kassie Reyna MD [facility] [address] [address] PCP - General Internal Medicine 07/29/22 documented as of this encounter
--- OUTSIDE RECORDS SUMMARY | 2025-04-21 21:06 | XMS_ITS | Encounter Summary ---
Author Organization [facility] Address [address] [place] [address] Care Team Providers Care Weathercaster Name Role Phone Kassie Reyna MD Primary Care Provider +1- [phone] Reason for Referral * Non-Referral (Routine) - Closed Specialty Diagnoses / Procedures Referred By Megan araujo Referred To Contact Procedures EEG Scan External, Provider Referral ID Status Reason Start Date Expiration Date Visits Re quested Visits Authorized [id number] Closed 01/10/2017 01/10/2018 1 1 Encounter Details Date Type Department Care Team (Late st Contact Info) Description 01/10/2017 Scanned Document [facility] [address] 4th [place] [address] External, Provider Social History Tobacco Use Types [...] documented as of this encounter Care Teams Weathercaster Relationship Specialty Start Date End Date Kassie Reyna MD [address] [address] PCP - General Internal Medicine 07/29/22 documented as of this encounter
--- OUTSIDE RECORDS SUMMARY | 2025-04-21 21:06 | XMS_ITS | Encounter Summary ---
Author Organization [facility] Address [address] [place] [address] Phone Care Team Providers Care Supervisor Trust Accounts Name Role Phone Kassie Reyna MD Primary Care Provider + Encounter Details Date Type Department Care Team (Late st Contact Info) Description 11/19/[address] [facility] PERIOPERATIVE DEPT [address] [place] [address] Social History Tobacco Use Types [...] cell phone pictures and video calls like [employer]. If patient is found to be recording [...] on filedocumented in this encounter Care Teams Supervisor Trust Accounts Relationship Specialty Start Date End Date Kassie Reyna MD [address] [place] [address] PCP - General Internal Medicine 12/17/21 documented as of this encounter Additional Source Comments The information contained in this document represents components of the legal health record. It is not the complete legal health record.[facility]
--- OUTSIDE RECORDS SUMMARY | 2025-04-21 21:06 | XMS_ITS | Encounter Summary ---
Author Organization [facility] and [facility] Address [address] [place] [address] Care Team Providers Care Pulvi Mixer Operator Name Role Phone Kassie Reyna MD Primary Care Provider +1- [phone] Encounter Details Date Type Department Care Team (Late st Contact Info) Description 01/27/2015 Scanned Document [facility] 800 [facility] 800 [facility] 4th [place] [address] External, Provider Social History Tobacco Use Types [...] documented as of this encounter Care Teams Pulvi Mixer Operator Relationship Specialty Start Date End Date Kassie Reyna MD [address] [address] PCP - General Internal Medicine 07/29/22 documented as of this encounter
--- OUTSIDE RECORDS SUMMARY | 2025-04-21 21:06 | XMS_ITS | Encounter Summary ---
Author Organization [facility] and [facility] Address [address] [place] [address] Care Team Providers Care Wood Strip Block Floor Installer Name Role Phone Kassie Reyna MD Primary Care Provider +1- [phone] Encounter Details Date Type Department Care Team (Latest Contact Info) Description 10/04/2015 Transcribed Orders Lab Specimens [address] [place], [place] [address] Sancho Dowd MD [address] [place] [address] Pre-transplant evaluation for end stage [...] (10/04/2015 12:40 PM EDT) ABO Grouping O [facility] Rh Type POS [facility] Blood specimen (specimen) 10/04/2015 12:40 PM EDT Narrative [facility] - 10/05/2015 12:34 AM EDT Performing Site: [facility], [address] [place] [address] us Sancho Dowd MD BLOOD BANK TEST ORDERABLES Final Result Performing Organization Address City/State/[facility] Co de Phone Number [facility] [address] [place] [address] documented in this encounter Visit Diagnoses Diagnosis [...] documented as of this encounter Care Teams Wood Strip Block Floor Installer Relationship Specialty Start Date End Date Kassie Reyna MD [facility] [address] [address] PCP - General Internal Medicine 07/29/22 documented as of this encounter
--- OUTSIDE RECORDS SUMMARY | 2025-04-21 21:06 | XMS_ITS | Encounter Summary ---
Author Organization [facility] and [facility] Address [address] [place] [address] Care Team Providers Care Waste Elimination Name Role Phone Kassie Reyna MD Primary Care Provider +1- [phone] Encounter Details Date Type Department Care Team (Late st Contact Info) Description 04/09/2016 Scanned Document [facility] 800 [facility] 800 [facility] [address] [place] [address] External, Provider Social History Tobacco Use Types [...] documented as of this encounter Care Teams Waste Elimination Relationship Specialty Start Date End Date Kassie Reyna MD [address] [address] PCP - General Internal Medicine 07/29/22 documented as of this encounter
--- OUTSIDE RECORDS SUMMARY | 2025-04-21 21:06 | XMS_ITS | Encounter Summary ---
Author Organization [facility] Address [address] [facility] [address] [address] [place] [address] Phone Care Team Providers Care Hospitality Manager Name Role Phone Kassie Reyna MD Primary Care Provider + Encounter Details Date Type Department Care Team (Late st Contact Info) Description 11/16/2024 Procedure Pass [facility] [address] [place] [address] Social History Tobacco Use Types Packs/Day Years [...] cell phone pictures and video calls like [employer]. If patient is found to be recording [...] on filedocumented in this encounter Care Teams Hospitality Manager Relationship Specialty Start Date End Date Kassie Reyna MD [address] [place] [address] PCP - General Internal Medicine 12/17/21 documented as of this encounter Additional Source Comments The information contained in this document represents components of the legal health record. It is not the complete legal health record.[facility]
--- OUTSIDE RECORDS SUMMARY | 2025-04-21 21:06 | XMS_ITS | Encounter Summary ---
Author Organization [facility] and [facility] Address [address] [place] [address] Care Team Providers Care Paper Cutting Machine Operator Name Role Phone Kassie Reyna MD Primary Care Provider +1- [phone] Encounter Details Date Type Department Care Team (Late st Contact Info) Description 05/06/2016 Scanned Document [facility] 800 [facility] 800 [facility] [address]th [place] [address] External, Provider Social History Tobacco Use Types [...] documented as of this encounter Care Teams Paper Cutting Machine Operator Relationship Specialty Start Date End Date Kassie Reyna MD [address] [address] PCP - General Internal Medicine 07/29/22 documented as of this encounter
--- OUTSIDE RECORDS SUMMARY | 2025-04-21 21:06 | XMS_ITS | Encounter Summary ---
Author Organization [facility] Address [address] [place] [address] Care Team Providers Care Pathology Laboratory Director Name Role Phone Kassie Reyna MD Primary Care Provider +1- [phone] Encounter Details Date Type Department Care Team (Late st Contact Info) Description 10/04/2015 Documentation [facility] 800 [facility] 800 [facility] 4[address] [place] [address] Isidoro New, PharmD Social History Tobacco Use [...] score of 8, High adherence. The [place] [employer] EQUIP[employer] RACKER was accessed and Ms. Morris is not [...] documented as of this encounter Care Teams Pathology Laboratory Director Relationship Specialty Start Date End Date Kassie Reyna MD [address] [phone] PCP - General Internal Medicine 07/29/22 documented as of this encounter
--- OUTSIDE RECORDS SUMMARY | 2025-04-21 21:06 | XMS_ITS | Encounter Summary ---
Author Organization [facility] Address [address] [place] [address] Care Team Providers Care Book Store Associate Name Role Phone Kassie Reyna MD Primary Care Provider +1- [phone] Encounter Details Date Type Department Care Team (Late st Contact Info) Description 09/18/2016 Scanned Document [facility] [address] [facility] [address] [facility] [address]th [place] [address] External, Provider Social History Tobacco Use Types [...] documented as of this encounter Care Teams Book Store Associate Relationship Specialty Start Date End Date Kassie Reyna MD [address] [address] PCP - General Internal Medicine 07/29/22 documented as of this encounter
--- OUTSIDE RECORDS SUMMARY | 2025-04-21 21:06 | XMS_ITS | Clinical Summary ---
Author Organization [address] Address [address] [place] [address] Care Team Providers Care Speech Therapy Teacher Name Role Phone Kassie Reyna MD Primary Care Provider +1- [phone] Allergies Active Allergy Reactions Criticality Noted Date [...] has PMHx HTN, reports recent admission at [facility] for hypertensive emergency. 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 PMHx/PSHx: MRSA due to permcath 01/2015, asthma, chronic b/l back pain (sees pain mgt), pre-eclampsia, seizures (during on meds and no recurrence) parathyroidectomy 2014 Dialysis Center: [facility] Fax: Mode: Home Hemo Schedule: Anticoagulation: none Sensitization : - x1 spontanious x1 elective Transplant: no Transfusions: no CPRA: 93% CONSENT Status Date Comments FULL CHARGE BOOKKEEPER/KDPI >85 Decline 03/28/2020 PHS Increased Risk Decline [...] Date Comments Colonoscopy N/A < 45 Other CHEMICAL ECONOMIST Status Date Comments Mammogram N/A < 40 [...] HTN and preeclampsia Planning transplant. Moved from [facility] to [place] [facility] transplant list Essential hypertension, benign 04/23/2006 Anxiety [...] drink = 0.6 oz pur e alcohol) [facility] Utilities Answer Date Recorded In the past 12 months has th e electric, gas, oil, or water company threatened to shut off services in your [...] adult (Td q 10,TDAP once) 12/03/2022 12/03/2012 Influenza vaccine 12/31/2024 04/08/2022, , 05/02/2016, Additional history exists Covid-19 vaccine series ( - 2024- season) 2025 Diabetes screening 10/24/2027 10/23/2024, 0 10/22/2024, 10/21/2024, Additional history exists Pneumococcal Vaccine (2 - 49 years) (4 of 4 - PCV20 or PCV21) [...] this topic Medical Devices Implanted Type Area Tungsten Tender Device Identifier Shelf Expiration Date Model / Serial / Lot Kit Catheter Hemo 2lum Str Lng Trm Glidepath [id number] - [id number] Implanted:Qty: 1 on 09/30/2024 by Devonte Sales MD at [facility] [address] Implant CR BARD [id number] 10/30/2025 [id number] / / [id number] Procedures Procedure Name Priority Date/Time Associated Diagnosis [...] 136 - 144 mmol/L 10/23/2024 12:27 PM [facility] DEPARTMENT OF LABORATORY MEDICINE Potassium 5.1 3.3 - 5.3 mmol/L 10/23/2024 12:27 PM [facility] DEPARTMENT OF LABORATORY MEDICINE Chloride 97(L) 98 - 107 mmol/L 10/23/2024 12:27 PM [facility] DEPARTMENT OF LABORATORY MEDICINE CO2 24 20 - 30 mmol/L 10/23/2024 12:27 PM [facility] DEPARTMENT OF LABORATORY MEDICINE Anion Gap 14 7 - 17 10/23/2024 12:27 PM [facility] DEPARTMENT OF LABORATORY MEDICINE Glucose 125(H) 70 - 100 mg/dL 10/23/2024 12:27 PM [facility] DEPARTMENT OF LABORATORY MEDICINE BUN 33(H) 6 - 20 mg/dL 10/23/2024 12:27 PM [facility] DEPARTMENT OF LABORATORY MEDICINE Creatinine 7.57(H) 0.40 - 1.30 mg/dL 10/23/2024 12:27 PM [facility] DEPARTMENT OF LABORATORY MEDICINE Calcium 7.8(L) 8.8 - 10.2 mg/dL 10/23/2024 12:27 PM [facility] DEPARTMENT OF LABORATORY MEDICINE BUN/Creatinine Ratio 4.4(L) 8.0 - 23.0 10/23/2024 12:27 PM [facility] DEPARTMENT OF LABORATORY MEDICINE eGFR (Creatinine) 7(L) >=60 mL/min/1.7 3m2 10/23/2024 12:27 PM [facility] DEPARTMENT OF LABORATORY MEDICINE Comment: [facility] utilizes CKD-EPI Creatinine 2020 to report eGFR. Values < 60 mL/min/1.73 m2 may indicate CKD if present for more than three months AND creatinine is at steady state. The eGFR provides a rough estimate of kidney function. For further guidance, please refer to the CKD: Adult Hydrodynamicist Signature pathway. Creatinine Delta 10/23/2024 12:27 PM [facility] DEPARTMENT OF LABORATORY MEDICINE Comment:No previous creatini ne <5.00 mg/dL is available within the previous 12 months to calculate a delta creatinine. Blood ARM NEC / Unknown Venipuncture / Unknown 10/23/2024 11:18 AM EDT 10/23/2024 11:38 AM EDT us Golden Gordillo MD LAB BLOOD ORDERABL ES Final Result [facility] DEPARTMENT OF LABORATORY MEDICINE [address] [place] [address] * HIV-1/HIV-2 antibody/antigen screen w/reflex ([facility]) (08/13/2022 3:32 PM EDT) HIV 1 and 2 Antibody/Antigen Screen Negative Negative 08/13/2022 9:02 PM EDT [facility] DEPARTMENT OF LABORATORY MEDICINE Comment:Interpretation: [...] ORDERABLES Samira l Result Performing Organization Address [facility]/ZIP Co de Phone Number [facility] DEPARTMENT OF LABORATORY MEDICINE [address] [place] [address] * Hepatitis C Ab with reflex to HCV PCR (01/23/2021 6:51 AM EDT) Hepatitis C Antibody Non-Reacti ve Non-Reacti ve 01/23/2021 11:31 AM EDT DEPARTMENT OF PATHOLOGY Blood Venipuncture / Unknown 01/23/2021 6:51 AM EDT 01/23/2021 7:09 AM EDT us Minh Pike MD LAB BLOOD ORDERABLES Final Resu lt DEPARTMENT OF PATHOLOGY [address] [place] [address] from Last 3 Months or Most Recently Relevant to Health Maintenance Insurance MEDICARE [id number] MEDICAID [place] MED[place]ARE [id number] MEDICAID [place] MED[place]ARE MEDICARE [id number] MEDICAID [place]ICAID [place] [address] [place] [address] MEDICARE MEDICAID [place] [address] [place] [address] MEDICARE MEDICAID [id number] Advance Directives * Full [...] the Code Status Discussed? Patient Care Teams Speech Therapy Teacher Relationship Specialty Start Date End Date Kassie Reyna MD [address] [address] PCP - General Internal Medicine 07/29/22
--- OUTSIDE RECORDS SUMMARY | 2025-04-21 21:06 | XMS_ITS | Patient Health Record ---
Author Organization [facility] Address [address] [place] [address] Care Team Providers Care Senior Engineering Team Leader Name Role Phone Self, Self Unavailable Unavailable [...] W/U Status Risk Notes Problem Chronic pain (19464624) Other chronic pain (G89.29) Active confirmed Problem Chronic pain syndrome (169702589) Chronic pain syndrome (G89.4) Active confirmed Problem Low back pain (851065104) Low back pain (M54.5) Active confirmed Problem End stage renal disease (42964180) End stage chronic kidney disease (N18.6) Active confirmed Plan Of Treatment Pending Test Test Name Order Date UDT - POC 11/01/2019 Insurance Providers Payer Name Payer Address Payer Phone Subscriber Number Group Number Insured Name Patient Relationship to Insured Coverage Start Date Coverage End Date Medicare-[place] Medicare [address] [place] [address] [id number] Flavio Morris Self - patient is the insured [facility] [address] [address] [place] [address] [id number] Flavio Morris Self - patient is the insured Medical (General) History Medical History History ICD Code anxiety Kidney Disease seizures allergies Surgical History Surgery Date(Month/Year) section DNC Angiogram fistula repair parathyroidectomy
--- OUTSIDE RECORDS SUMMARY | 2025-04-21 21:06 | XMS_ITS | Encounter Summary ---
Author Organization [facility] Address [address] [place] [address] Care Team Providers Care Animal Hospital Office Supervisor Name Role Phone Kassie Reyna MD Primary Care Provider +1- [phone] Encounter Details Date Type Department Care Team (Late st Contact Info) Description 07/23/2015 Scanned Document [facility] 800 [facility] 800 [facility] [address]th [place] [address] External, Provider Social History Tobacco Use Types [...] documented as of this encounter Care Teams Animal Hospital Office Supervisor Relationship Specialty Start Date End Date Kassie Reyna MD [address] [address] PCP - General Internal Medicine 07/29/22 documented as of this encounter
--- OUTSIDE RECORDS SUMMARY | 2025-04-21 21:06 | XMS_ITS | Encounter Summary ---
Author Organization [facility] Address [address] [place] [address] Phone Care Team Providers Care Movie Actor Name Role Phone Kassie Reyna MD Primary Care Provider + Encounter Details Date Type Department Care Team (Late st Contact Info) Description 11/15/2024 Procedure Pass [facility] Cardiac Permastone Applicator [address] [facility], [address] [place] [address] Social History Tobacco Use Types [...] cell phone pictures and video calls like [employer]. If patient is found to be recording [...] on filedocumented in this encounter Care Teams Movie Actor Relationship Specialty Start Date End Date Kassie Reyna MD [address] [place] [address] PCP - General Internal Medicine 12/17/21 documented as of this encounter Additional Source Comments The information contained in this document represents components of the legal health record. It is not the complete legal health record.[facility]
--- OUTSIDE RECORDS SUMMARY | 2025-04-21 21:07 | XMS_ITS | Encounter Summary ---
Author Organization [facility], Address [address] [place] [address] Phone Care Team Providers Care Experimental Welder Name Role Phone Antonio Sellers MD Primary Care Provider +1- [phone] Encounter Details Date Type Department Care Team (Late st Contact Info) Description 07/28/2023 Documentation Only [facility], [address] [place] [id number] Tod Stone MD [address] [place] [address] Social History Tobacco Use Types [...] on filedocumented in this encounter Care Teams Experimental Welder Relationship Specialty Start Date End Date Antonio Sellers MD [address] [place], [place] PCP - General Internal Medicine 04/04/25 documented as of this encounter
--- OUTSIDE RECORDS SUMMARY | 2025-04-21 21:07 | XMS_ITS | Patient Health Record ---
Author Organization [facility] Address [address] [facility] [address] [place], [place] [address] Support Name Relationship Address Phone kimberlyn potts Emergency Contact Unknown Flavio Morris Guarantor Unknown Unavailabl e Allergies Allergen (clinical drug ingredient) Drug/Non Drug Allergy documented on EMR Reaction Allergy Type Onset Date Status gabapentin Gabapentin Unknown Drug Allergy Activ e lisinopril Lisinopril Unknown Drug Allergy Activ e Penicillin Unknown Drug Allergy Active tramadol Tramadol Unknown Drug Allergy Active Reason For Referral No Information Medications Medication SIG (Take, Route, Frequency, Duration) Notes Start Date End Date Status Keppra 500 MG 1 tablet Orally ever y 12 hrs; Duration: 30 day(s) 250mg once a day as well Active Auryxia 1 GM 210 MG(Fe) 2 tablets with meals Orally Three times a day; Duration: 30 day(s) Active Tums 500 MG 4 tablet Orally Once a day Active NIFEdipine ER 90 MG 1 tablet on an empty stomach Orally Once a day 30mg in AM 60 MG at night Active Carvedilol 25 MG 1 tablet with food Orally Twice a day Active Vitamin D 50 MCG (1999 UT) 1 tablet Orally Once a day; Duration: 30 day(s) Active Diflucan 150 MG 1 tablet Orally ever y two days; Duration: 10 days 02/27/2021 Active Clotrimazole-7 1 % 1 application at bedtime Vaginal Once a day; Duration: 7 day(s) 02/27/2021 Active oxyCODONE HCl 10 MG 1 tablet as needed Orally every 6 hrs; Duration: 14 days 12/05/2020 Active Percocet 5-325 MG 1 tablet as needed Orally bid; Duration: 10 days 11/24/2020 Active Immunizations Vaccine Route Administration Date Status Comme nts PPD Unknown 02/27/2021 Administered Social History Tobacco Use: Social History Observation Description Date Details (start date - stop date) Never Smoker NA - NA Tobacco Use/Smoking Question Answer Notes Are you a nonsmoker Alcohol Screen Question Answer Notes Did you have a drink contain ing alcohol in the past year? Yes How often did you have a dri nk containing alcohol in the past year? Monthly or less (1 point) How many drinks did you have on a typical day when you were drinking in the past year? 1 or 2 drinks (0 point) Points 1 Interpretation Negative Problems Problem Type SNOMED Code ICD Code Onset Dates Problem Status W/U Status Risk Notes Problem End stage renal disease (66242972) End stage renal disease (N18.6) Active confirmed Problem Dependence on renal dialysis (177541789) Dependence on renal dialysis (Z99.2) Active confirmed Problem Tuberculosis screening (022832398) Screening for tuberculosis (Z11.1) Active confirmed Problem Vaginal candidiasis (24286575) Vaginal candidiasis (B37.3) Active confirmed Problem End stage renal disease (15463881) ESRD (end stage renal disease) (N18.6) Active confirmed Plan Of Treatment No Information Insurance Providers Payer Name Payer Address Payer Phone Subscriber Number Group Number Insured Name Patient Relationship to Insured Coverage Start Date Coverage End Date [facility] [address] [place] [address] [id number] Flavio Morris Self - patient is the insured [employer] [address] [place] [id number] Flavio Morris Self - patient is the insured Medical (General) History Medical History History ICD Code seizure chronic kidney stage 4 PATIENT HAD ECLAMPSIA 2011 Surgical History Surgery Date(Month/Year) parathyroid C&S
--- OUTSIDE RECORDS SUMMARY | 2025-04-21 21:07 | XMS_ITS | Encounter Summary ---
Author Organization [facility] Address [address] [place] [address] Care Team Providers Care Acupressurist Name Role Phone Kassie Reyna MD Primary Care Provider +1- [phone] Encounter Details Date Type Department Care Team (Late st Contact Info) Description 06/28/2021 Abstract [facility] [address] [facility] [address] [facility] [address] [place] [address] Maritza Plascencia Social History Tobacco Use Types [...] documented as of this encounter Care Teams Acupressurist Relationship Specialty Start Date End Date Kassie Reyna MD [address] [address] PCP - General Internal Medicine 07/29/22 documented as of this encounter
--- OUTSIDE RECORDS SUMMARY | 2025-04-21 21:07 | XMS_ITS | Encounter Summary ---
Author Organization [facility] Address [address] [place] [address] Phone Care Team Providers Care Courtesy Van Driver Name Role Phone Kassie Reyna MD Primary Care Provider + Encounter Details Date Type Department Care Team (Late st Contact Info) Description 11/01/2024 Procedure Pass [facility], [address] 1 [place] [address] Social History Tobacco Use Types Packs/Day Years [...] 2:14 AM EDT Daria Arechiga RN * [place] Suicide Severity Rating Scale (Screener/Recent Self-Report) Question [...] on filedocumented in this encounter Care Teams Courtesy Van Driver Relationship Specialty Start Date End Date Kassie Reyna MD [address] [place] [address] PCP - General Internal Medicine 12/17/21 documented as of this encounter Additional Source Comments The information contained in this document represents components of the legal health record. It is not the complete legal health record.[facility]
--- OUTSIDE RECORDS SUMMARY | 2025-04-21 21:07 | XMS_ITS | Encounter Summary ---
Author Organization [facility] Address [address] [place] [address] Care Team Providers Care Engraver Seals Name Role Phone Kassie Reyna MD Primary Care Provider +1- [phone] Reason for Visit * Reason Comments Kidney Transplant Evaluation Encounter Details Date Type Department Care Team (Late st Contact Info) Description 06/24/2022 Documentation [facility] [address] [facility] [address] [facility] 4th [place] [address] Linnea De León, MIKE Social History Tobacco [...] León RN - 06/24/2022 8:30 AM EST [facility] Kidney Transplant Program- Medical Review Board Transplant Nurse Coordinator Summary REFERRING PROVIDER: Jenifer Cavazos PRIMARY CARE PROVIDER: Jenifer Cavazos TRANSPLANT NURSE COORDINATOR: LINNEA DE LEÓN NAME: Flavio Morris , [id number] AGE: 36 y.o. GENDER: female ETHNICITY: [facility] [address] [address] Transplant Phase: Kidney Transplant Evaluation - 06/27/2021 [...] FSG) Transplant Evaluation Team: Dietitian: Noa Luis Marketing Sales Supervisor: Charley Villagomez Referring Physician: Jenifer Cavazos Coordinator: Jonh Osorio Transplant Surgeon: Isidoro Colon Sewing Machine Operator Semiautomatic: Cory Tellez Associate Coordinator: Katey Parr Patient Active Problem List Diagnosis SNOMED CT(R) ??? ESRD (end stage renal disease) on dialysis (HC Code) (HC CODE) (HC Code) END STAGE RENAL FAILURE ON DIALYSIS ??? Essential hypertension, benign BENIGN ESSENTIAL HYPERTENSION ??? Seizures (HC Code) (HC CODE) (HC Code) SEIZURE ??? 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 Has been [...] documented as of this encounter Care Teams Engraver Seals Relationship Specialty Start Date End Date Kassie Reyna MD [address] [address] PCP - General Internal Medicine 07/29/22 documented as of this encounter
--- OUTSIDE RECORDS SUMMARY | 2025-04-21 21:07 | XMS_ITS | Encounter Summary ---
Author Organization [facility], Address [address] [place] [address] Phone Care Team Providers Care Manager Pool Name Role Phone Antonio Sellers MD Primary Care Provider [phone]- [phone] Encounter Details Date Type Department Care Team (Late st Contact Info) Description 08/23/2024 Documentation Only [facility], [address] [place] [address] Waqar Wellington MD [address] [facility] [place] [address] Social History Tobacco Use Types [...] filedocumented in this encounter Care Teams Manager Pool Relationship Specialty Start Date End Date Antonio Sellers MD [address] [place], [place] PCP - General Internal Medicine 04/04/25 documented as of this encounter
--- OUTSIDE RECORDS SUMMARY | 2025-04-21 21:07 | XMS_ITS | Encounter Summary ---
Author Organization [facility] Address [address] [address] [place] [address] Phone Care Team Providers Care Bundles Hanger Name Role Phone Kassie Reyna MD Primary Care Provider + Encounter Details Date Type Department Care Team (Late st Contact Info) Description 11/01/2024 Procedure Pass [facility] Imaging - RF/IR [address] [facility] 2nd [place] [address] Social History Tobacco Use Types Packs/Day Years [...] 2:14 AM EDT Daria Arechiga RN * [place] Suicide Severity Rating Scale (Screener/Recent Self-Report) Question [...] on filedocumented in this encounter Care Teams Bundles Hanger Relationship Specialty Start Date End Date Kassie Reyna MD [address] [place] [address] PCP - General Internal Medicine 12/17/21 documented as of this encounter Additional Source Comments The information contained in this document represents components of the legal health record. It is not the complete legal health record.[facility]
--- OUTSIDE RECORDS SUMMARY | 2025-04-21 21:07 | XMS_ITS | Encounter Summary ---
Author Organization [facility], Address [address] [place] [address] Phone Care Team Providers Care Mold Cleaning And Storage Supervisor Name Role Phone Antonio Sellers MD Primary Care Provider [phone]- [phone] Encounter Details Date Type Department Care Team (Late st Contact Info) Description 08/23/2024 Documentation Only [facility], [address] [address] Waqar Wellington MD [address] [place] [address] Social History Tobacco Use Types [...] on filedocumented in this encounter Care Teams Mold Cleaning And Storage Supervisor Relationship Specialty Start Date End Date Antonio Sellers MD [address] [place], [place] PCP - General Internal Medicine 04/04/25 documented as of this encounter
--- OUTSIDE RECORDS SUMMARY | 2025-04-21 21:07 | XMS_ITS | Encounter Summary ---
Author Organization [facility] Address [address] [place] [address] Phone Care Team Providers Care Youth Services Specialist Name Role Phone Kassie Reyna MD Primary Care Provider + Encounter Details Date Type Department Care Team (Late st Contact Info) Description 11/01/2024 Procedure Pass [facility] Emergency Imaging, [address] 1 [place] [address] Social History Tobacco Use Types Packs/Day Years [...] 2:14 AM EDT Daria Arechiga RN * [place] Suicide Severity Rating Scale (Screener/Recent Self-Report) Question [...] on filedocumented in this encounter Care Teams Youth Services Specialist Relationship Specialty Start Date End Date Kassie Reyna MD [address] [place] [address] PCP - General Internal Medicine 12/17/21 documented as of this encounter Additional Source Comments The information contained in this document represents components of the legal health record. It is not the complete legal health record.[facility]
--- OUTSIDE RECORDS SUMMARY | 2025-04-21 21:07 | XMS_ITS | Encounter Summary ---
Author Organization [facility] Address [address] [place] [address] Care Team Providers Care Electronic Equipment Maint Tech Name Role Phone Kassie Reyna MD Primary Care Provider [phone]- [phone] Encounter Details Date Type Department Care Team (Late st Contact Info) Description 09/05/2023 Abstract [facility] [address] [facility] [address] [facility] [address] [place] [address] Taylor De León, MIKE Social History Tobacco [...] documented as of this encounter Care Teams Electronic Equipment Maint Tech Relationship Specialty Start Date End Date Kassie Reyna MD [address] [facility] [address] [place] [address] PCP - General Internal Medicine 07/29/22 documented as of this encounter
--- OUTSIDE RECORDS SUMMARY | 2025-04-21 21:07 | XMS_ITS | Patient Health Record ---
Author Organization [facility] Address [address] [facility] [address] [place] [address] Care Team Providers Care Packaging Clerk Name Role Phone Solomon Tee Primary Care Provider Allergies Allergen (clinical drug ingredient) Drug/Non Drug Allergy documented on EMR Reaction Allergy Type Onset Date Status gabapentin Gabapentin Unknown Drug Allergy Activ e Reason For Referral No Information Medications Medication SIG (Take, Route, Fr equency, Duration) Notes Start Date End Date Status Keppra Active Carvedilol Active Losartan Potassium A ctive iron Active Epogen Active Vitamin D Active Social History Section Notes: single yes children no stds non smoker less than 10 drinks per week Problems Problem Type SNOMED Code ICD Code Onset Dates Problem Status W/U Status Risk Notes Problem Chronic pain (85446007) Other chronic pain (G89.29) Active confirmed Plan Of Treatment No Information Insurance Providers Payer Name Payer Address Payer Phone Subscriber Number Group Number Insured Name Patient Relationship to Insured Coverage Start Date Coverage End Date Blue [employer] Blue Card [address] [facility] [place] [address] [id number] AMA Flavio Morris Self - patient is the insured Medicare [address] [place] [phone] [id number] Flavio Morris Self - patient is the insured Medical (General) History Medical History History ICD Code cko stage 4 hypertension
--- OUTSIDE RECORDS SUMMARY | 2025-04-21 21:07 | XMS_ITS | Encounter Summary ---
Author Organization [facility] Address [address] [place] [address] Care Team Providers Care Hand Cigar Making Supervisor Name Role Phone Kassie Reyna MD Primary Care Provider +1- [phone] Encounter Details Date Type Department Care Team (Late st Contact Info) Description 07/08/2022 Abstract [facility] [address] [facility] [address] [facility] [address] [place] [address] Soni Escalante, [facility] Social History Tobacco Use Types Packs/Day Years [...] as of this encounter Care Teams Hand Cigar Making Supervisor Relationship Specialty Start Date End Date Kassie Reyna MD [address] [address] PCP - General Internal Medicine 07/29/22 documented as of this encounter
--- OUTSIDE RECORDS SUMMARY | 2025-04-21 21:07 | XMS_ITS | Clinical Summary ---
Author Organization [facility] Address [address] [place] [address] Care Team Providers Care Platen Drier Operator Name Role Phone Kassie Reyna MD Primary Care Provider +1- [phone] Dialysis, [facility] Unavailable +1 -[phone] Lana Quintana MD Unavailable [phone] Gómez Whitley MD Unavailable [phone] Allergies Active Allergy Reactions Criticality Noted Date Comments Clonidine Other (See Comments) 02/11/2023 Edema and generalized swelling per patient Gabapentin GI Intolerance/Nausea/ Vomiting,Rash/[place] titis Low 05/27/2019 Dizziness, itching, fatigue Lisinopril Shortness Of Breath High 03/14/2018 Methoxy Polyethylene Glycol-Epoetin Beta Rash/Dermatitis,[place] rtness Of Breath High 09/15/2018 Mircera Tolerated Epogen fine Metoprolol Rash/Dermatitis Low 05/27/2019 Penicillins Hives,Rash/Dermatit is,Anaphylaxis High 10/03/2015 Prednisone GI Intolerance/Nausea/ Vomiting,Rash/[place] titis Medium 10/04/2015 Swelling x 1 episodes. [...] needed for wheezing. Active epoetin michael (EPOGEN,PROCRIT) 03221 UNIT/ML injection Inject 1 mL (20,000 Units total) under the skin 3 (three) times a week on Friday, , Friday. Active Iron Sucrose (VENOFER IV) Infuse 50 mg into a venous catheter once a week. Active carvedilol (COREG) 12.5 MG tablet Take 3 tablets (37.5 mg total) by mouth 2 (two) times a day with meals. Active D3-50 1.25 MG (10093 UT) capsuleIndication s:Vitamin D deficiency TAKE 1 [...] Health Maintenance Due Date Last Done Comments Chronic Controlled Substance Toxicology Screening 2004 Controlled Substance Agreeme nt Initial and Annual Review 2004 DTaP/Tdap/Td Vaccines (1 - Tdap) 2005 Pneumococcal Vaccine: Pediat rob (0-5 Years) and At-Risk Patients (6 to 49 Years) (1 of 2 - PCV) 2005 Hepatitis B Vaccines (1 of 3 - Risk Dialysis 4-dose series) 2006 Pap Smear (Ages 21-65) 2007 Chronic Controlled Substance User PDMP Review 10/09/2023 07/11/2023, 01/10/2023, 08/22/2022 Influenza Vaccine 12/31/2024 04/08/2022, , 04/03/2021, Additional history exists COVID-19 Vaccine ( - 2023-2 5 season) 2025 Hepatitis C Virus Screening Completed 01/23/2021 HIV Screening Completed 08/13/2022, 07/31, 03/27/2020, Additional history exists HPV Vaccines (No Doses Required) Completed Insurance MEDICARE PART A & B [facility] MEDICAID OUT OF STATE [facility] MEDICARE PART A & B Member Subscriber Plan / Payer (Ef fective 2015-Present) Name:Flavio Morris Member ID:[id number] Relation to Subscriber:Self Name:Flavio Morris Subscriber ID:[id number] Payer ID:[id number] Group ID:Not on file Type:Not on file Address: [place] [address] [place] [address] MEDICARE PART A & B Member Subscriber Plan / Payer (Ef fective 2015-Present) Name:Flavio Morris Member ID:[id number] Relation to Subscriber:Self Name:Flavio Morris Subscriber ID:[id number] Payer ID:[id number] Group ID:Not on file Type:Not on file Address: [address] Advance Directives * Full Code (Latest Code [...] 2:07 AM 05/16/2022 12:39 PM Care Teams Platen Drier Operator Relationship Specialty Start Date End Date Kassie Reyna MD [address] [place] [address] PCP - General Internal Medicine 12/24/21 Dialysis, [facility] [address] [place] [address] Dialysis Unit 09/05/22 Lana Quintana MD [address] [place] [address] Physician Nephrology 09/11/22 Gómez Whitley MD [address] [place] [address] Surgery, General 10/25/22
--- OUTSIDE RECORDS SUMMARY | 2025-04-21 21:07 | XMS_ITS | Encounter Summary ---
Author Organization [facility] Address [address] [place] [address] Phone Care Team Providers Care Orthotist/Prosthetist Name Role Phone Kassie Reyna MD Primary Care Provider + Encounter Details Date Type Department Care Team (Late st Contact Info) Description 11/03/2024 Procedure Pass [facility] Cardiac Risk Consulting Treasury Director [address] [facility], [address] 9, [address] [place] [address] Social History Tobacco Use Types [...] on filedocumented in this encounter Care Teams Orthotist/Prosthetist Relationship Specialty Start Date End Date Kassie Reyna MD [address] [place] [address] PCP - General Internal Medicine 12/17/21 documented as of this encounter Additional Source Comments The information contained in this document represents components of the legal health record. It is not the complete legal health record.[facility]
--- OUTSIDE RECORDS SUMMARY | 2025-04-21 21:07 | XMS_ITS | Encounter Summary ---
Author Organization [facility] Address [address] [place] [address] Care Team Providers Care Router Operator Pin Name Role Phone Kassie Reyna MD Primary Care Provider [phone]- [phone] Encounter Details Date Type Department Care Team (Late st Contact Info) Description 08/03/2021 Scanned Document [facility] [address] [facility] [address] [facility] 4th [place] [address] External, Provider Social History Tobacco Use Types [...] documented as of this encounter Care Teams Router Operator Pin Relationship Specialty Start Date End Date Kassie Reyna MD [address] [address] PCP - General Internal Medicine 07/29/22 documented as of this encounter
--- OUTSIDE RECORDS SUMMARY | 2025-04-21 21:07 | XMS_ITS | Encounter Summary ---
Author Organization [facility] Address [address] [place] [address] Phone Care Team Providers Care County Library Director Name Role Phone Kassie Reyna MD Primary Care Provider + Encounter Details Date Type Department Care Team (Late st Contact Info) Description 11/09/2024 Procedure [place] [facility] [place]iac Pearl Restorer [address] [facility], [address] 9, [address] [place] [address] Social History Tobacco Use Types [...] filedocumented in this encounter Care Teams County Library Director Relationship Specialty Start Date End Date Kassie Reyna MD [address] [place] [address] PCP - General Internal Medicine 12/17/21 documented as of this encounter Additional Source Comments The information contained in this document represents components of the legal health record. It is not the complete legal health record.[facility]
--- OUTSIDE RECORDS SUMMARY | 2025-04-21 21:07 | XMS_ITS | Encounter Summary ---
Author Organization [facility], Address [address] [place] [address] Phone Care Team Providers Care Oracle Soa Consultant Name Role Phone Antonio Sellers MD Primary Care Provider [phone]- [phone] Encounter Details Date Type Department Care Team (Late st Contact Info) Description 10/06/2023 Documentation Only [facility], [address] [place] [address] Tod Stone MD [address] [place] [address] Social History Tobacco Use Types [...] on filedocumented in this encounter Care Teams Oracle Soa Consultant Relationship Specialty Start Date End Date Antonio Sellers MD [address] [place], [place] PCP - General Internal Medicine 04/04/25 documented as of this encounter
--- OUTSIDE RECORDS SUMMARY | 2025-04-21 21:07 | XMS_ITS | Encounter Summary ---
Author Organization [facility] Address [address] [place] [address] Phone Care Team Providers Care Leadership Recruiter Name Role Phone Kassie Reyna MD Primary Care Provider + Encounter Details Date Type Department Care Team (Late st Contact Info) Description 11/02/2024 Procedure Pass [facility] [address] [place] [address] Social History Tobacco Use Types Packs/Day Years [...] on filedocumented in this encounter Care Teams Leadership Recruiter Relationship Specialty Start Date End Date Kassie Reyna MD [address] [place] [address] PCP - General Internal Medicine 12/17/21 documented as of this encounter Additional Source Comments The information contained in this document represents components of the legal health record. It is not the complete legal health record.[facility]
--- OUTSIDE RECORDS SUMMARY | 2025-04-21 21:07 | XMS_ITS | Encounter Summary ---
Author Organization [facility] Address [address] [place] [address] Phone Care Team Providers Care Crtts Name Role Phone Kassie Reyna MD Primary Care Provider + Encounter Details Date Type Department Care Team (Late st Contact Info) Description 11/03/2024 Procedure Pass [facility], Main [address], Floor 1 [place] [address] Social History Tobacco Use Types Packs/Day Years [...] on filedocumented in this encounter Care Teams Crtts Relationship Specialty Start Date End Date Kassei Reyna MD [address] [place] [address] PCP - General Internal Medicine 12/17/21 documented as of this encounter Additional Source Comments The information contained in this document represents components of the legal health record. It is not the complete legal health record.[facility]
--- OUTSIDE RECORDS SUMMARY | 2025-04-21 21:07 | XMS_ITS | Clinical Summary ---
Author Organization [facility], Address [address] [place] [address] Phone Care Team Providers Care Gas Station Supervisor Name Role Phone Antonio Sellers MD Primary Care Provider +1- [phone] Allergies Active Allergy Reactions Criticality Noted Date [...] 7 Active cholecalciferol (VITAMIN D-3) 1.25 MG (75282 UT) capsule Take 50,000 Units by mouth [...] mouth every night Active ergocalciferol 1.25 MG (16971 UT) capsule Take 50,000 Units by mouth [...] HTN and preeclampsia Planning transplant. 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 Anxiety state 04/23/2006 Encounters Date Type Department Care Team Description 04/19/2025 Orders Only [facility] [address] [place] [address] Malick Arechiga DO 04/12/2025 Treatment [facility], [address] [place] [address] Malick Arechiga, End stage renal disease; Dependence on renal dialysis 04/12/2025 Orders Only [facility] [address] [address] Malick Arechiga, DO 03/29/2025 Documentation Only [facility], [address] [place] [address] Malick Arechiga, 03/22/2025 Orders Only [facility] [address] [address] Malick Arechiga, 03/03/2025 Treatment [facility], [address] [place] [address] Malick Arechiga DO End stage renal disease; Dependence on renal dialysis 03/03/2025 Orders Only [facility] [address] [address] Malick Arechiga, 02/24/2025 Orders Only [facility] [address] [address] Malick Arechiga, 02/12/2025 Orders Only [facility] [address] [address] Malick Arechiga, 02/03/2025 Documentation Only [facility], [address] [place] [address] Malick Arechiga DO from Last 3 Months Immunizations Immunization Administration Dates Next Due HPV, Unspecified 03/04/2019 Hep B, Adolescent or Pediatric 06/24/2000 Hepatitis B 06/24/2000 Influenza (IM) Preservative Free 04/09/2016,12/0 08/2014 Influenza Split 04/09/2016 Influenza Split Preservative Free [...] of 5 - Risk Dialysis 4-dose series) 12/12/2016 11/14/2016, 06/24/2000, 06/24/2000 Influenza Vaccine (#1) 2025 2, 04/03/2021, 05/02/2016, Additional history exists Pneumococcal Vaccine: Peds ( 0 to 5 Years) and At-Risk Patients (6 to 49 Years) (4 of 4 - PCV20 or PCV21) 2036 03/04/2019, 10/18/2017, 06/06/2015, Additional history exists Pneumococcal Vaccine: 50+ Years Discontinued 03/04/2019, 10/18/2017, 06/06/2015, Additional history exists Procedures Procedure Name Priority Date/Time Associated Diagnosis Comments HD KINETICS Routine 04/19/2025 POST CHEMISTRY Routine 04/19/2025 CHEMISTRY Routine 04/19/2025 HEMATOLOGY Routine 04/19/2025 [facility] RESULTS Routine 04/12/2025 HD KINETICS Routine 04/12/2025 CHEMISTRY Routine 04/12/2025 POST CHEMISTRY Routine 04/12/2025 HEMATOLOGY Routine 04/12/2025 [facility] RESULTS Routine 03/22/2025 HD KINETICS Routine 03/22/2025 POST CHEMISTRY Routine 03/22/2025 IMMUNO CHEMISTRY Routine 03/22/2025 CHEMISTRY Routine 03/22/2025 CHEMISTRY Routine 03/22/2025 [facility] RESULTS Routine 03/03/2025 HD KINETICS Routine 03/03/2025 POST CHEMISTRY Routine 03/03/2025 CHEMISTRY Routine 03/03/2025 HEMATOLOGY Routine 03/03/2025 [facility] RESULTS Routine 02/24/2025 HD KINETICS Routine 02/24/2025 IMMUNO CHEMISTRY Routine 02/24/2025 CHEMISTRY Routine 02/24/2025 HEMATOLOGY Routine 02/24/2025 CHEMISTRY Routine 02/24/2025 POST CHEMISTRY Routine 02/24/2025 [facility] RESULTS Routine 02/12/2025 HEMATOLOGY Routine 02/12/2025 TRACE ELEMENTS Routine 02/12/2025 IMMUNO CHEMISTRY Routine 02/12/2025 SPECIAL CHEMISTRY Routine 02/12/2025 HD KINETICS Routine 02/12/2025 POST CHEMISTRY Routine 02/12/2025 CHEMISTRY Routine 02/12/2025 CHEMISTRY Routine 02/12/2025 from Last 3 Months Results * (ABNORMAL) HD KINETICS (04/19/2025) Only the most recent of6 resultswithin the time period is included. % Urea Reduction 63(L) 65 - 80 % [facility] 04/19/2025 04/21/2025 8:2 7 AM EST Narrative Resulting Agency Comment Specimen source: Plasma Malick Arechiga DO LAB BLOOD ORDERABLES Final Resu lt [facility] See order comments or contact performing lab Unknown, [place] * (ABNORMAL) POST CHEMISTRY (04/19/2025) Only the most recent of6 resultswithin the time period is included. BUN Post Dialysis 27(H) 6 - 19 mg/dL [facility] 04/19/2025 04/21/2025 8:2 7 AM EST Narrative [facility] - 04/21/2025 Unless otherwise specified, test(s) performed at: [facility], [address] [place] [address] ADJUNCT INSTRUCTOR: Magdy Howard M.D. For any questions, please call customer service at FREQUENCY:OTHER Resulting Agency Comment Specimen source: Plasma [facility] LAB BLOOD ORDERABLES Final Resu lt Performing Organization Address [facility] de Phone Number [facility] See order comments or contact performing lab Unknown, [place] * (ABNORMAL) HEMATOLOGY (04/19/2025) Only the most recent of5 resultswithin the time period is included. Hemoglobin 8.8(L) 12.0 - 16.0 g/dL [facility] Hemoglobin x 3 26.4(L) 36.0 - 48.0 % [facility] 04/19/2025 04/21/2025 8:0 7 AM EST Narrative [facility] - 04/21/2025 Unless otherwise specified, test(s) performed at: [facility], [address] [place] [id number] ADJUNCT INSTRUCTOR: Magdy Howard M.D. For any questions, please call customer service at FREQUENCY:OTHER Resulting Agency Comment Specimen source: Blood [facility] LAB BLOOD ORDERABLES Final Resu Performing Organization Address [facility] de Phone Number [facility] See order comments or contact performing lab Unknown, [place] * (ABNORMAL) [facility] (04/19/2025) Only the most recent of9 resultswithin the time period is included. BUN 73(H) 6 - 19 mg/dL [facility] Potassium 4.7 3.5 - 5.1 mEq/L [facility] 04/19/2025 04/21/2025 8:2 7 AM EST Narrative [facility] - 04/21/2025 Unless otherwise specified, test(s) performed at: [facility], [address] [place] [address] ADJUNCT INSTRUCTOR: Magdy Howard M.D. For any questions, please call customer service at FREQUENCY:OTHER Resulting Agency Comment Specimen source: Serum Malick Arechiga LAB BLOOD ORDERABLES Final Resu lt Performing Organization Address [facility] Co de Phone Number [facility] See order comments or contact performing lab Unknown, [place] * [facility] Results (04/12/2025) Only the most recent of5 resultswithin the time period is included. [facility] eKt/V ([place]) 0.91 [facility] WSTDKT/V 0.7 [facility] spKt/V (Daugirdas II) 1.15 [facility] 04/12/2025 04/12/2025 [facility] Ordering Provider LAB BLOOD ORDERABLES Final Result Performing Organization Address [facility] Co de Phone Number [facility] Contact Performing lab Unknown, [place] * IMMUNO CHEMISTRY (03/22/2025) Only the most recent of3 resultswithin the time period is included. [facility] Hep B Surface Ag Negative Negative [facility] 03/22/2025 03/23/2025 8:3 9 AM EDT Narrative Resulting Agency Comment Specimen source: Serum Malick Arechiga LAB BLOOD ORDERABLES Final Resu lt Performing Organization Address [facility] de Phone Number [facility] See order comments or contact performing lab Unknown, [place] * (ABNORMAL) SPECIAL CHEMISTRY (02/12/2025) [facility] Vitamin D, 25-OH, Total 27.5(L) 30.0 - 100.0 ng/mL [facility] Comment: Please Note: Effective March 31, 2023, the methodology for this test has changed to the [facility]. 02/12/2025 02/15/2025 8:4 7 AM EDT Narrative [facility] - 02/15/2025 Unless otherwise specified, test(s) performed at: [facility] [address] ADJUNCT INSTRUCTOR: Magdy Howard M.D. For any questions, please call customer service at FREQUENCY:MONTHLY Resulting Agency Comment Specimen source: Serum [facility] BLOOD BANK TEST ORDERABLES Final Result Performing Organization Address [facility] de Phone Number [facility] See order comments or contact performing lab Unknown, [place] * (ABNORMAL) TRACE ELEMENTS (02/12/2025) Aluminum 16(H) 0 - 10 mcg/L [facility] Comment: This test was developed and its performance characteristics determined by [facility]. It has not been cleared or approved by the FDA. The laboratory is regulated under CLIA as qualified to perform high complexity testing. This test is used for clinical purposes. It should not be regarded as investigational or for research. Verified by repeat analysis. 02/12/2025 02/15/2025 8:2 8 AM EDT Narrative [facility] - 02/15/2025 Unless otherwise specified, test(s) performed at: [facility], [address] [place] [address] ADJUNCT INSTRUCTOR: Magdy Howard M.D. For any questions, please call customer service at FREQUENCY:MONTHLY Resulting Agency Comment Specimen source: Serum [facility] LAB BLOOD ORDERABLES Final Resu lt Performing Organization Address [facility] de Phone Number [facility] See order comments or contact performing lab Unknown, [place] from Last 3 Months Insurance Medicare Medicaid [place] Medicare Medicaid [place] Care Teams Gas Station Supervisor Relationship Specialty Start Date End Date Antonio Sellers MD [address] [place] [address] PCP - General Internal Medicine 04/04/25
--- OUTSIDE RECORDS SUMMARY | 2025-04-21 21:07 | XMS_ITS | Encounter Summary ---
Author Organization [facility] Address [address] [place] [address] Care Team Providers Care Service Order Taker Name Role Phone Kassie Reyna MD Primary Care Provider +1- [phone] Encounter Details Date Type Department Care Team (Late st Contact Info) Description 11/07/2023 Abstract [facility] [address] [facility] [address] [facility] [address] [place] [address] Taylor De León, MIKE Social History Tobacco [...] documented as of this encounter Care Teams Service Order Taker Relationship Specialty Start Date End Date Kassie Reyna MD [address] [facility] [address] [place] [address] PCP - General Internal Medicine 07/29/22 documented as of this encounter
--- OUTSIDE RECORDS SUMMARY | 2025-04-21 21:07 | XMS_ITS | Encounter Summary ---
Author Organization [facility] Address [address] [place] [address] Care Team Providers Care Security Operations Center Operator Name Role Phone Kassie Reyna MD Primary Care Provider +1- [phone] Encounter Details Date Type Department Care Team (Late st Contact Info) Description 02/19/2021 Telephone MEDICAL ONCOLOGY [address] [place] [address] Vanessa Serrano RN Social History Tobacco Use [...] documented as of this encounter Care Teams Security Operations Center Operator Relationship Specialty Start Date End Date Kassie Reyna MD [address] [address] PCP - General Internal Medicine 07/29/22 documented as of this encounter
--- OUTSIDE RECORDS SUMMARY | 2025-04-21 21:07 | XMS_ITS | Encounter Summary ---
Author Organization [facility], Address [address] [place] [address] Phone Care Team Providers Care Hunter Trapper Name Role Phone Antonio Sellers MD Primary Care Provider +1- [phone] Encounter Details Date Type Department Care Team (Late st Contact Info) Description 09/29/2024 Documentation Only [facility], [address] [place] [address] Blanca Brown LA [address] [place] [address] Social History Tobacco Use Types Packs/Day [...] on filedocumented in this encounter Care Teams Hunter Trapper Relationship Specialty Start Date End Date Antonio Sellers MD [address] [place], [place] PCP - General Internal Medicine 04/04/25 documented as of this encounter
--- OUTSIDE RECORDS SUMMARY | 2025-04-21 21:07 | XMS_ITS | Encounter Summary ---
Author Organization [facility] Address [address] [place] [address] Care Team Providers Care Rim Fire Charger Operator Name Role Phone Kassie Reyna MD Primary Care Provider +1- [phone] Dialysis, [facility] Unavailable +1 -[phone] Lana Quintana MD Unavailable Gómez Whitley MD Unavailable Encounter Details Date Type Department Care Team (Late st Contact Info) Description 10/25/2022 Scanned Document [facility] Department of Nephrology and Access Surgery [address] [phone] Woody Freire, DO [address] [facility] [address] [place], [place] [id number] Social History Tobacco Use Types Packs/Day Years [...] on filedocumented in this encounter Care Teams Rim Fire Charger Operator Relationship Specialty Start Date End Date Kassie Reyna MD [address] [place] [address] PCP - General Internal Medicine 12/24/21 Dialysis, [facility] [address] [place] [address] Dialysis Unit 09/05/22 Lana Quintana MD [address] [place] [address] Physician Nephrology 09/11/22 Gómez Whitley MD [address] [place] [address] Surgery, General 10/25/22 documented as of this encounter
--- OUTSIDE RECORDS SUMMARY | 2025-04-21 21:07 | XMS_ITS | Encounter Summary ---
Author Organization [facility], Address [address] [address] Phone Care Team Providers Care Safety Technician Name Role Phone Antonio Sellers MD Primary Care Provider +1- [phone] Encounter Details Date Type Department Care Team (Late st Contact Info) Description 10/13/2024 Documentation Only [facility], [address] [place] [phone] Roby Sosa MD [address] [place] [address] Social History Tobacco Use Types [...] on filedocumented in this encounter Care Teams Safety Technician Relationship Specialty Start Date End Date Antonio Sellers MD [address] [place], [place] PCP - General Internal Medicine 04/04/25 documented as of this encounter
--- OUTSIDE RECORDS SUMMARY | 2025-04-21 21:07 | XMS_ITS | Encounter Summary ---
Author Organization [facility] Address [address] [place] [address] Phone Care Team Providers Care Plant Director Name Role Phone Kassie Reyna MD Primary Care Provider + Encounter Details Date Type Department Care Team (Late st Contact Info) Description 11/04/2024 Procedure Pass [facility] [address] [place] [address] Social History Tobacco Use Types Packs/Day Years [...] on filedocumented in this encounter Care Teams Plant Director Relationship Specialty Start Date End Date Kassie Reyna MD [address] [place] [address] PCP - General Internal Medicine 12/17/21 documented as of this encounter Additional Source Comments The information contained in this document represents components of the legal health record. It is not the complete legal health record.[facility]
--- OUTSIDE RECORDS SUMMARY | 2025-04-21 21:07 | XMS_ITS | Encounter Summary ---
Author Organization [facility] Address [address] [place] [address] Care Team Providers Care Metal Flow Coordinator Name Role Phone Kassie Reyna MD Primary Care Provider +1- [phone] Encounter Details Date Type Department Care Team (Late st Contact Info) Description 07/26/2022 Abstract [facility] [address] [facility] [address] [facility] [address] [place] [address] Referring, No Social History Tobacco Use Types [...] documented as of this encounter Care Teams Metal Flow Coordinator Relationship Specialty Start Date End Date Kassie Reyna MD [address] [address] PCP - General Internal Medicine 07/29/22 documented as of this encounter
--- OUTSIDE RECORDS SUMMARY | 2025-04-21 21:07 | XMS_ITS | Encounter Summary ---
Author Organization [facility], Address [address] [place] [address] Phone Care Team Providers Care Senior Procurement Manager Name Role Phone Antonio Sellers MD Primary Care Provider +1- [phone] Encounter Details Date Type Department Care Team (Late st Contact Info) Description 09/02/2024 Documentation Only [facility], [address] [place] [address] Lianna Fishman [address] [place] [address] Social History Tobacco Use Types [...] filedocumented in this encounter Care Teams Senior Procurement Manager Relationship Specialty Start Date End Date Antonio Sellers MD [address] [place], [place] PCP - General Internal Medicine 04/04/25 documented as of this encounter
--- OUTSIDE RECORDS SUMMARY | 2025-04-21 21:07 | XMS_ITS | Encounter Summary ---
Author Organization [facility] Address [address] [place] [address] Care Team Providers Care Career Development Engineer Name Role Phone Kassie Reyna MD Primary Care Provider +1- [phone] Dialysis, [facility] Unavailable +1 -[phone] Lana Quintana MD Unavailable [phone] Gómez Whitley MD Unavailable Encounter Details Date Type Department Care Team (Late st Contact Info) Description 08/19/2023 Scanned Document [facility] Department of Nephrology and Access Surgery [place] [address] [place] [phone] Lana Quintana MD [address] [address] Social History Tobacco Use Types Packs/Day Years [...] on filedocumented in this encounter Care Teams Career Development Engineer Relationship Specialty Start Date End Date Kassie Reyna MD [address] [place] [address] PCP - General Internal Medicine 12/24/21 Dialysis, [facility] [address] [place] [address] Dialysis Unit 09/05/22 Lana Quintana MD [address] [place] [address] Physician Nephrology 09/11/22 Gómez Whitley MD [address] [place] [address] Surgery, General 10/25/22 documented as of this encounter
--- OUTSIDE RECORDS SUMMARY | 2025-04-21 21:07 | XMS_ITS | Encounter Summary ---
Author Organization [facility], Address [address] [place] [address] Phone Care Team Providers Care Patternmaker Apprentice Wood Name Role Phone Antonio Sellers MD Primary Care Provider +1- [phone] Encounter Details Date Type Department Care Team (Late st Contact Info) Description 08/24/2024 Documentation Only [facility], [address] [place] [address] Waqar Wellington MD [address] [facility] [place] [address] Social History Tobacco Use Types [...] on filedocumented in this encounter Care Teams Patternmaker Apprentice Wood Relationship Specialty Start Date End Date Antonio Sellers MD [address] [place], [place] PCP - General Internal Medicine 04/04/25 documented as of this encounter
--- OUTSIDE RECORDS SUMMARY | 2025-04-21 21:07 | XMS_ITS | Encounter Summary ---
Author Organization [facility] Address [address] [place] [address] Care Team Providers Care Fire Control Mechanic Name Role Phone Kassie Reyna MD Primary Care Provider +1- [phone] Dialysis, [facility] Unavailable +1 [phone] Lana Quintana MD Unavailable [phone] Gómez Whitley MD Unavailable Encounter Details Date Type Department Care Team (Late st Contact Info) Description 08/06/2023 [facility] Physicians Department of Nephrology [address] [address] Lana Quintana MD [address] [place] [address] Environmental allergies (Primary Dx); Essential hypertension; Allergy, [...] sequela documented in this encounter Care Teams Fire Control Mechanic Relationship Specialty Start Date End Date Kassie Reyna MD [address] [place] [address] PCP - General Internal Medicine 12/24/21 Dialysis, [facility] [address] [place] [address] Dialysis Unit 09/05/22 Lana Quintana MD [address] [place] [address] Physician Nephrology 09/11/22 Gómez Whitley MD [address] [place] [address] Surgery, General 10/25/22 documented as of this encounter
--- OUTSIDE RECORDS SUMMARY | 2025-04-21 21:08 | XMS_ITS | Encounter Summary ---
Author Organization [facility] Address [address] [place] [address] Care Team Providers Care Ancient Art Curator Name Role Phone Kassie Reyna MD Primary Care Provider +1- [phone] Encounter Details Date Type Department Care Team (Late st Contact Info) Description 12/13/2020 Abstract [facility] [address] [facility] [address] [facility] [address] [place] [address] Katey Parr Social History Tobacco Use Types [...] documented as of this encounter Care Teams Ancient Art Curator Relationship Specialty Start Date End Date Kassie Reyna MD [address] [address] PCP - General Internal Medicine 07/29/22 documented as of this encounter
--- OUTSIDE RECORDS SUMMARY | 2025-04-21 21:08 | XMS_ITS | Encounter Summary ---
Author Organization [facility] Address [address] [place] [address] Care Team Providers Care Clamp Operator Name Role Phone Kassie Reyna MD Primary Care Provider [phone] Dialysis, [facility] Unavailable [phone] Lana Quintana MD Unavailable Gómez Whitley MD Unavailable [phone] Encounter Details Date Type Department Care Team (Late st Contact Info) Description 09/11/2022 Scanned Document [facility] Department of Nephrology and Access Surgery [address] [phone] Noa Beatty MD [address] [place] [address] [id number] Social History Tobacco Use Types Packs/Day Years [...] on filedocumented in this encounter Care Teams Clamp Operator Relationship Specialty Start Date End Date Kassie Reyna MD [address] [place] [address] PCP - General Internal Medicine 12/24/21 Dialysis, [facility] [address] [place] [address] Dialysis Unit 09/05/22 Lana Quintana MD [address] [place] [address] Physician Nephrology 09/11/22 Gómez Whitley MD [address] [place] [address] Surgery, General 10/25/22 documented as of this encounter
--- OUTSIDE RECORDS SUMMARY | 2025-04-21 21:08 | XMS_ITS | Encounter Summary ---
Author Organization [facility] Address [address] [place] [address] Care Team Providers Care Commodity Management Specialist Name Role Phone aKssie Reyna MD Primary Care Provider [phone] Reason for Visit * Reason Comments Hospital Discharge Follow Up Encounter Details Date Type Department Care Team (Late st Contact Info) Description 02/08/2021 Patient Outreach [facility] [address] [place] [id number] Jo Mueller RN Hospital Discharge Follow Up [...] documented as of this encounter Care Teams Commodity Management Specialist Relationship Specialty Start Date End Date Kassie Reyna MD [address] [phone] PCP - General Internal Medicine 07/29/22 documented as of this encounter
--- OUTSIDE RECORDS SUMMARY | 2025-04-21 21:08 | XMS_ITS | Clinical Summary ---
Author Organization [address] Address [address] [place] [phone] Phone Care Team Providers Care [employer] Presser Name Role Phone Antonio Sellers MD Primary Care Provider [phone] Allergies Active Allergy Reactions Criticality Noted Date Comments Julius Inhibitors 02/12/2025 Adhesive Tape-Silicones 02/12/2025 Amlodipine Rash 02/12/2025 Arb-Angiotensin Receptor Antagonist 02/12/2025 Diphenhydramine Hcl 02/12/2025 Allergic to the dye of the pills, not IV Beta-Blockers (Beta-Adrenergic Blocking Agts) 02/12/2025 Clonidine Anaphylaxis High 02/12/2025 Chest pain Doxazosin 02/12/2025 Throat swelling Furosemide 02/13/2025 Gabapentin Anaphylaxis High 02/12/2025 Heparin 02/12/2025 Hydralazine 02/12/2025 anaphylaxis Hydroxyzine 02/13/2025 Isosorbide Dinitrate 02/12/2025 Cephalexin 02/12/2025 Labetalol 02/12/2025 Itching of eyes, eyes swell, diaphoresis Latex 02/12/2025 Levofloxacin Itching 02/12/2025 Skin peeling Lisinopril 02/13/2025 Throat tightening Losartan 02/12/2025 Methocarbamol 02/12/2025 Metoprolol 02/13/2025 Epoetin Beta, Methoxy Peg 02/12/2025 dyspnea Ibuprofen 02/12/2025 Nitroglycerin 02/12/2025 Pt reports itching and hives to nitro paste but reports itching, throat, and facial swelling with nitro tablet Penicillins 02/12/2025 Prednisone 02/12/2025 Epoetin Mo-Epbx Hives High 02/12/2025 Cinacalcet 02/12/2025 Spironolactone 02/12/2025 Tramadol 02/12/2025 Throat tightening Valsartan 02/12/2025 Tongue swelling, itch, facial swelling Medications carvediloL (COREG) 25 mg tablet Take 1 tablet (25 mg total) by mouth 2 (two) times a day. 01/10/20 25 Active levETIRAcetam (Keppra) 500 mg tablet Take 1 tablet (500 mg total) by mouth 1 (one) time each day. 10/04/19 16 2025 Active levETIRAcetam (KEPPRA) 250 mg tablet Take 1 tablet (250 mg total) by mouth 1 (one) time each day. ONLY AFTER DIALYSIS Friday10/04/19 16 Active pantoprazole (PROTONIX) 40 mg EC tablet Take 1 tablet (40 mg total) by mouth daily. 02/11/20 24 Active Lokelma 10 gram packet Take 10 g by mouth every other day. 11/30/19 25 Active minoxidiL (LONITEN) 2.5 mg tablet Take 3 tablets (7.5 mg total) by mouth 1 (one) time each day. 90 each 02/24/20 25 2025 Active sevelamer carbonate (RENVELA) 800 mg tablet Take 1 tablet (800 mg total) by mouth 3 (three) times a day with meals. Swallow tablet whole; do not crush, break, or chew. 90 each 02/24/20 25 2025 Active NIFEdipine XL (PROCARDIA XL) 60 mg 24 hr tablet Take 1 tablet (60 mg total) by mouth 2 (two) times a day. Do not crush, chew, or split. 60 each 03/09/20 25 Active fluticasone propion-salmete roL (Advair HFA) 230-21 mcg/actuation inhaler Inhale 2 puffs by mouth 2 (two) times a day. 03/02/20 Active albuterol 2.5 mg /3 mL (0.083 %) nebulizer solution Inhale 3 mL (2.5 mg total) by mouth every 4 (four) hours if needed for wheezing or shortness of breath. 03/26/20 Active Auryxia 210 mg iron tablet Take 2 tablets (420 mg total) by mouth 3 (three) times a day with meals. Active sildenafil (REVATIO) 20 mg tabletIndicatio ns:Pulmonary hypertension ([facility] V24, [facility] V28) Take 1 tablet (20 mg total) by mouth 3 (three) times a day. 90 each 04/04/20 25 2024 Active fluticasone propionate (FLONASE) 50 mcg/actuation nasal spray Administer 2 sprays into each nostril 2 (two) times daily morning and afternoon. Shake gently. Before first use, prime pump. After use, clean tip and replace cap. 04/07/20 25 2024 Active sodium chloride (OCEAN) 0.65 % nasal spray Administer 2 sprays into each nostril every 4 (four) hours if needed for congestion. 15 mL 04/07/20 25 2024 Active budesonide (PULMICORT) 0.5 mg/2 mL nebulizer solutionIndicat ions:Hyperkalem ia,End-stage renal disease needing dialysis ([facility] V24, [facility] V28),Complicati on associated with dialysis catheter,ESRD (end stage renal disease) on dialysis ([facility] V24, [facility] V28) Take 2 mL (0.5 mg total) by nebulization 1 (one) time each day. Rinse mouth with water after use to reduce aftertaste and incidence of candidiasis. Do not swallow. 60 mL 04/09/20 25 2025 Active formoterol (PERFOROMIST) 20 mcg/2 mL nebulizer solution Take 2 mL (20 mcg total) by nebulization 2 (two) times a day. 60 mL 04/08/20 Active sildenafil (REVATIO) 20 mg tablet Take 1 tablet (20 mg total) by mouth 2 times daily. 12/22/19 25 2024 Discontinued cholecalciferol (VITAMIN D-3) 50 mcg (2,000 unit) tablet Take 1 tablet (2,000 Units total) by mouth 1 (one) time each day. 01/23/20 25 2024 oxyCODONE (ROXICODONE) 15 mg immediate release tablet Take 1 tablet (15 mg total) by mouth every 4 (four) hours if needed (severe pain). 09/04/19 25 2024 cefpodoxime (VANTIN) 200 mg tablet Take 1 tablet (200 mg total) by mouth 2 (two) times a day for 5 days. 10 each 04/08/202024 Active Problems Problem Noted Date Diagnosed Date Sinusitis 04/08/2025 ESRD (end stage renal diseas e) on dialysis ([facility] V24, [facility] V28) 04/06/2025 Complication associated with dialysis catheter 1 Overview (03/09/2025): Pain Right leg pain 03/08/2025 Hypertension 03/05/2025 ESRD needing dialysis ([facility] V24, [facility] V28) 02/12/2025 Resolved Problems Problem Noted Date Diagnosed Date Resolved Date Chest pain, unspecified type 04/02/2025 04/03/2025 Hyperkalemia 03/01/2025 04/03/2025 Encounters Date Type Department Care Team Description 04/06/2025 1:39 AM EST - 04/08/2025 11:01 AM EST Hospital Encounter [facility] [address] [place] [phone] Jermaine Rivera MD Bell, Alistair A, MD Nasser, Nada S, MD Anemia, unspecified type (Primary Dx); Hyperkalemia; Chronic kidney disease, unspecified CKD stage; End-stage renal disease needing dialysis ([facility] V24, [facility] V28); Complication associated with dialysis catheter; ESRD (end stage renal disease) on dialysis ([facility] V24, [facility] V28) Discharge Disposition: Home or Self Care 04/01/2025 11:32 PM EDT - 04/04/2025 4:33 PM EST Hospital Encounter [facility] [address] [place] [phone] Lisa Altman MD Muhoozi, Bannet, MD Sondhi, Vikram, MD Japaridze, Anna, MD Mogul, Ashley, MD Bell, Alistair A, MD Chest pain, unspecified type (Primary Dx); ESRD needing dialysis ([facility] V24, [facility] V28); Pulmonary hypertension ([facility] V24, [facility] V28) Discharge Disposition: Home-Health Care [facility] 03/05/2025 3:16 AM EDT - 03/12/2025 9:41 AM EDT Hospital Encounter [facility] [address] [place] [phone] Andi Weldon MD Santoyo-Pacheco, Omar D, MD Alam, Aroosa, MD Kela, Kashyap Devendrabhai, MD Right leg pain (Primary Dx) Discharge Disposition: Home or Self Care 03/01/2025 4:51 PM EDT - 03/02/2025 1:26 PM EDT Hospital Encounter [facility] [address] [place] [phone] La Correa MD Jones, Christopher, MD Alam, Aroosa, MD Non-compliance with renal dialysis ([facility] [facility] [employer] V24) (Primary Dx); Hyperkalemia; Opioid dependence with opioid-induced disorder ([employer] [facility] [employer] V24, [employer] [facility] [employer] V28); Other chronic pain; Chest pain, unspecified type; Uncontrolled hypertension Discharge Disposition: Home or Self Care 02/12/2025 2:49 PM EDT - 02/22/2025 7:11 PM EDT Hospital Encounter [facility] [address] [place] [phone] Tiesha Shelby DO Flores, Carlos M, MD Jones, Christopher, MD Santoyo-Pacheco, Omar D, MD Kokosadze, Estate, MD Zipagan, James T, MD ESRD needing dialysis ([facility] [facility] [employer] V24, [facility] V28) (Primary Dx); Hyperkalemia; Chronic pain syndrome; Edema of right upper arm Discharge Disposition: Home or Self Care from Last 3 Months Surgical History Surgery Date Site/Laterality Comments SECTION AV FISTULA PLACEMENT Left OTHER SURGICAL HISTORY left internal jugular vein placement Medical History Medical History Date Comments Unspecified asthma(493.90) DX:Un specified asthma(493.90) Hypertension Systolic CHF ([facility] V24, [facility] V28) Interstitial lung disease ([facility] V24, [facility] V28) Pulmonary hypertension ([facility] V24, [facility] V28 ) Tricuspid regurgitation ESRD (end stage renal diseas e) ([facility] V24, [facility] V28) Chronic hypoxic respiratory failure ([facility] [facility] [employer] V24, [facility] V28) Seizure ([employer] [facility] [employer] V24, [employer] [facility] [employer] V28) Family History Medical History Relation Name Comments Diabetes Maternal Grandmother Kidney disease Maternal Grandmother Diabetes Mother Hypertension Mother uncle, mat gmot her ESRD Mother's Sister Relation Name Status Comments Maternal Grandmother Mother Mother's Sister Social History Tobacco Use Types Packs/Day Years Used Date Smoking Tobacco: Never Alcohol Use Standard Drinks/Week Comments Never 0 (1 standard drink = 0.6 oz pur e alcohol) Housing Instability Answer Date Recorde d Are you worried that in the next 2 months you may not have stable housing? No 04/06/2025 Food Access & Nutrition Answer Date Rec orded Do you have access to a vari ety of food including fruits and vegetables? No 04/06/2025 Access to Healthcare Answer Date Record ed Within the last 3 months, ho arcenio many times did you visit the emergency department for your medical care? 3 04/06/2025 Health Literacy Answer Date Recorded How often do you need to hav e someone help you when you read instructions, pamphlets, or other written material from your doctor or pharmacy? Rarely 04/06/2025 Caregiver: How often do you need to have someone help you when you read instructions, pamphlets, or other written material from your doctor or pharmacy? Not on file 04/06/2025 Financial Risk Answer Date Recorded How hard is it for you to pa y for the very basics like food, housing, medical care, and air conditioning / heating? Patient declined 04/06/2025 Transportation Answer Date Recorded Has the lack of transportati on kept you from meetings, work, or from getting things needed for daily living? No Has the lack of transportati on kept you from medical appointments or from getting medications? No 04/06/2025 Social Isolation Answer Date Recorded How often do you feel lonely or isolated from th ose around you? Rarely 04/06/2025 Food Risk Answer Date Recorded Within the past 12 months we worried whether our food would run out before we got money to buy more. Patient declined 025 Within the past 12 months th e food we bought just didn't last and we didn't have money to get more. Patient declined 09/2024 Dependent Care Answer Date Recorded Do you need help finding or paying for care for your loved ones. For example, child care associate or elderly care for an older adult? No 04/06/2025 Education Answer Date Recorded Do you think completing more education or training, like finishing a GED, going to college, or learning a trade, would be helpful for you? No 04/06/2025 Employment and Income Answer Date Recor ded During the last four weeks, have you been actively looking for work? No 04/06/2025 Living Situation Answer Date Recorded What is your living situation? Unrecognized valu e 04/06/2025 Interpersonal Safety Answer Date Record ed Physical Abuse Unrecognized value 04/06/2025 Verbal Abuse Unrecognized value 04/06/2025 Comments No Sex and Gender Information Value Date Recorded Sex Assigned at Female 04/02/2025 2:18 AM EDT Legal Sex Female 10:47 AM EST Gender Identity Female 04/02/2025 2:18 AM EDT Sexual Orientation Choose not to disclose 2024 8:46 AM EST Obstetrics History Last Filed Vital Signs Vital Sign Reading Time Taken Comments Blood Pressure 146/88 04/08/2025 7:56 AM EST Pulse 66 04/08/2025 7:56 AM EST Temperature 37.2 C (98.9 F) 04/08/2025 7:56 AM EST Respiratory Rate 16 04/08/2025 7:56 AM EST Oxygen Saturation 100% 04/08/2025 7:56 AM EST Inhaled Oxygen Concentration - - Weight 66.9 kg (147 lb 8 oz) 04/06/2025 8:29 AM EST Height 165.1 cm (5' 5 ) 04/06/2025 1:41 AM EST Body Mass Index 24.55 04/06/2025 1:41 AM EST Plan of Treatment Health Maintenance Due Date Last Done Comments Hepatitis A Vaccines (1 of 2 - Risk 2-dose series) 2005 Cervical Cancer Screening: Pap Smear 2007 Hepatitis B Vaccines (3 of 5 - Risk Dialysis 4-dose series) 12/12/2016 11/14/2016, 06/24/2000 HPV Vaccines (2 - 3-dose SCDM series) 04/01/2019 03/04/2019 HIV Screening 04/30/2022 Medicare Annual Wellness Visit 04/30/2022 Depression Screening 06/02/2024 COVID-19 Vaccine ( season) 2025 Influenza Vaccine (#1) 2025 , 04/03/2021, 05/02/2016, Additional history exists Cholesterol Screening (Lipid Panel) 12/14/2025 12/14/2020, 07/20/2019 Social Influencers of Health Screening 04/06/2026 04/06/2025 Hypertension/CHF/CAD Annual BMP Blood Test 04/07/2026 04/07/2025, 04/06/2025, 04/06/2025, Additional history exists DTaP,Tdap,and Td Vaccines (3 - Td or Tdap) 03/04/2029 03/04/2019, 12/03/2012 Pneumococcal Vaccine: Pediatrics (0 to 5 Years) and At-Risk Patients (6 to 49 Years) (4 of 4 - PCV20 or PCV21) 2036 03/04/2019, 10/18/2017, 06/16/2015, Additional history exists RSV Immunization Adult Patients (1 - 1-dose 75+ series) 2061 Hepatitis C Screening Completed 11/17/2024 , 11/15/2024, 11/11/2024, Additional history exists HIB Vaccines Aged Out No longer eligi ble based on patient's age to complete this topic IPV Vaccines Aged Out No longer eligi ble based on patient's age to complete this topic MMR Vaccines Aged Out No longer eligi ble based on patient's age to complete this topic Meningococcal ACWY Vaccine Aged Out N o longer eligible based on patient's age to complete this topic Meningococcal B Vaccine Aged Out No l onger eligible based on patient's age to complete this topic RSV Immunization Patients Under 20 months Aged Out No longer eligible based on patient's age to complete this topic Varicella Vaccines Aged Out No longer eligible based on patient's age to complete this topic Medical Devices Implanted Type Area Harnessmaker Apprentice Device Identifier Shelf Expiration Date Model / Serial / Lot Cath Glidepath [id number] Order In Mult Of 5ea - [id number] - [id number] Implanted:Qty: 1 on 02/16/2025 by Doc Page MD at [facility] Dialysis Catheters Left: Chest Wall CR BARD [employer]HER[employer] [id number] 05/01/2026 [id number] / [id number] / [id number] Procedures Procedure Name Priority Date/Time Associated Diagnosis Comments ECG OUTSIDE 04/11/2025 ECG ANNOTATED 04/11/2025 HEMODIALYSIS INPATIENT Routine 11:50 AM EST C-REACTIVE PROTEIN Add-On 04/07/2025 5: 49 AM EST COMPLETE BLOOD COUNT Routine 04/07/2025 5:49 AM EST BASIC METABOLIC PANEL Routine 04/07/2025 5:49 AM EST LEVETIRACETAM LEVEL Timed 04/06/2025 7 :30 AM EST CBC WITH AUTO DIFFERENTIAL Routine 04/06/2025 6:10 AM EST CBC AND DIFFERENTIAL Routine 04/06/2025 6:10 AM EST BASIC METABOLIC PANEL Routine 04/06/2025 6:10 AM EST MAGNESIUM Routine 04/06/2025 6:10 AM EST PHOSPHORUS Routine 04/06/2025 6:10 AM EST POCT GLUCOSE BLOOD Routine 04/06/2025 4: 58 AM EST HEMODIALYSIS INPATIENT Routine 4:49 AM EST POCT GLUCOSE BLOOD Routine 04/06/2025 3: 59 AM EST TROPONIN I HIGH SENSITIVITY Timed 04/06/2025 3:45 AM EST CBC WITH AUTO DIFFERENTIAL STAT 04/06/2025 2:19 AM EST TYPE AND SCREEN STAT 04/06/2025 2:19 AM EST HCG, SERUM, QUALITATIVE STAT 04/06/2025 2:19 AM EST COMPREHENSIVE METABOLIC PANEL STAT 04/06/2025 2:19 AM EST TROPONIN I HIGH SENSITIVITY Timed 04/06/2025 2:19 AM EST MAGNESIUM STAT 04/06/2025 2:19 AM EST CBC AND DIFFERENTIAL STAT 04/06/2025 2:19 AM EST ECG 12-LEAD STAT 04/06/2025 1:58 AM EST ECG ANNOTATED 04/05/2025 XR HIP 2-3 VIEWS RIGHT Routine 4:10 PM EST XR SHOULDER 2+ VIEWS RIGHT Routine 04/03/2025 4:[address] CERVICAL SPINE WO CONTRAST STAT 04/03/2025 3:47 PM EST POCT GLUCOSE BLOOD Routine 04/03/2025 1: 00 PM EST CBC WITH AUTO DIFFERENTIAL Routine 04/03/2025 5:53 AM EST BASIC METABOLIC PANEL Routine 04/03/2025 5:53 AM EST CBC AND DIFFERENTIAL Routine 04/03/2025 5:53 AM EST BASIC METABOLIC PANEL Routine 04/02/2025 4:12 PM EDT COMPLETE BLOOD COUNT Routine 04/02/2025 4:12 PM EDT LAVENDER - EDTA Routine 04/02/2025 8:38 AM EDT EXTRA TUBES Routine 04/02/2025 8:38 AM EDT POTASSIUM STAT 04/02/2025 8:38 AM EDT HEMODIALYSIS INPATIENT Routine 6:40 AM EDT POCT GLUCOSE BLOOD Routine 04/02/2025 5: 58 AM EDT XR CHEST 1 VIEW STAT 04/02/2025 2:58 AM EDT TROPONIN I HIGH SENSITIVITY Timed 04/02/2025 2:15 AM EDT B-TYPE NATRIURETIC PEPTIDE STAT 04/02/2025 12:59 AM EDT HCG, SERUM, QUALITATIVE STAT Add-on 04/02/2025 12:57 AM EDT CBC WITH AUTO DIFFERENTIAL STAT 04/02/2025 12:57 AM EDT MAGNESIUM STAT 04/02/2025 12:57 AM EDT LIPASE STAT 04/02/2025 12:57 AM EDT COMPREHENSIVE METABOLIC PANEL STAT 04/02/2025 12:57 AM EDT CBC AND DIFFERENTIAL STAT 04/02/2025 12:57 AM EDT TROPONIN I HIGH SENSITIVITY Timed 04/02/2025 12:57 AM EDT ECG 12-LEAD STAT 04/01/2025 10:23 PM EDT BASIC METABOLIC PANEL STAT 03/11/2025 2:41 PM EDT TROPONIN I HIGH SENSITIVITY Timed 03/10/2025 5:[address] CHEST WO CONTRAST STAT 03/10/2025 5:30 PM EDT LT BLUE - NA CITRATE Routine 03/10/2025 4:36 PM EDT EXTRA TUBES Routine 03/10/2025 4:36 PM EDT C-REACTIVE PROTEIN STAT 03/10/2025 4: 36 PM EDT CBC WITH AUTO DIFFERENTIAL STAT 03/10/2025 4:36 PM EDT CBC AND DIFFERENTIAL STAT 03/10/2025 4:36 PM EDT TROPONIN I HIGH SENSITIVITY Timed 03/10/2025 4:36 PM EDT CULTURE BLOOD Routine 03/10/2025 4:36 PM EDT CULTURE BLOOD STAT 03/10/2025 4:35 PM EDT HEMODIALYSIS INPATIENT Routine 4:17 PM EDT ECG 12-LEAD STAT 03/10/2025 2:33 PM EDT XR CHEST 1 VIEW STAT 03/10/2025 2:32 PM EDT TROPONIN I HIGH SENSITIVITY Routine 03/09/2025 2:20 PM EDT BASIC METABOLIC PANEL STAT 03/09/2025 2:20 PM EDT CBC WITH AUTO DIFFERENTIAL Routine 03/09/2025 2:20 PM EDT CBC AND DIFFERENTIAL Routine 03/09/2025 2:20 PM EDT IR REMOVE TUNNELED CVC WO SUBQ PORT OR PUMP Routine 03/08/2025 3:40 PM EDT HEMODIALYSIS INPATIENT Routine 10:26 AM EDT ECG 12-LEAD Routine 03/08/2025 12:24 AM EDT TROPONIN I HIGH SENSITIVITY Timed 03/08/2025 12:19 AM EDT LAVENDER - EDTA Routine 03/07/2025 11:23 PM EDT SST - GOLD Routine 03/07/2025 11:23 PM EDT EXTRA TUBES Routine 03/07/2025 11:23 PM EDT TROPONIN I HIGH SENSITIVITY STAT 03/07/2025 11:23 PM EDT ECG 12-LEAD Routine 03/07/2025 7:53 PM EDT HEMODIALYSIS INPATIENT Routine 8:48 AM EDT ECG 12-LEAD Routine 03/07/2025 5:45 AM EDT CBC WITH AUTO DIFFERENTIAL Routine 03/07/2025 5:40 AM EDT TROPONIN I HIGH SENSITIVITY STAT 03/07/2025 5:40 AM EDT BASIC METABOLIC PANEL Routine 03/07/2025 5:40 AM EDT CBC AND DIFFERENTIAL Routine 03/07/2025 5:40 AM EDT XR CHEST 1 VIEW STAT 03/06/2025 6:09 PM EDT CBC WITH AUTO DIFFERENTIAL Routine 03/06/2025 6:10 AM EDT CBC AND DIFFERENTIAL Routine 03/06/2025 6:10 AM EDT MAGNESIUM Routine 03/06/2025 6:10 AM EDT BASIC METABOLIC PANEL Routine 03/06/2025 6:10 AM EDT HEMODIALYSIS INPATIENT Routine 8:41 AM EDT VAS US DUPLEX LOWER EXT VENOUS RIGHT STAT 03/05/2025 6:31 AM EDT Right leg pain XR ANKLE 3+ VIEWS RIGHT STAT 03/05/2025 5:49 AM EDT XR CHEST 1 VIEW STAT 03/05/2025 4:20 AM EDT CBC WITH AUTO DIFFERENTIAL STAT 03/05/2025 3:59 AM EDT B-TYPE NATRIURETIC PEPTIDE STAT 03/05/2025 3:59 AM EDT ACTIVATED PARTIAL THROMBOPLASTIN TIME STAT 03/05/2025 3:59 AM EDT PROTHROMBIN TIME WITH INR STAT 03/05/2025 3:59 AM EDT TROPONIN I HIGH SENSITIVITY STAT 03/05/2025 3:59 AM EDT CBC AND DIFFERENTIAL STAT 03/05/2025 3:59 AM EDT MAGNESIUM STAT 03/05/2025 3:59 AM EDT PHOSPHORUS STAT 03/05/2025 3:59 AM EDT COMPREHENSIVE METABOLIC PANEL STAT 03/05/2025 3:59 AM EDT CBC WITH AUTO DIFFERENTIAL Routine 03/02/2025 6:07 AM EDT PHOSPHORUS Routine 03/02/2025 6:07 AM EDT MAGNESIUM Routine 03/02/2025 6:07 AM EDT CBC AND DIFFERENTIAL Routine 03/02/2025 6:07 AM EDT BASIC METABOLIC PANEL Routine 03/02/2025 6:07 AM EDT POCT GLUCOSE BLOOD Routine 03/02/2025 5: 55 AM EDT POCT GLUCOSE BLOOD Routine 03/01/2025 11 :02 PM EDT HEMODIALYSIS INPATIENT STAT 9:07 PM EDT ECG 12-LEAD STAT 03/01/2025 5:52 PM EDT C-REACTIVE PROTEIN Add-On 03/01/2025 5: 39 PM EDT HCG, SERUM, QUALITATIVE STAT Add-on 03/01/2025 5:39 PM EDT B-TYPE NATRIURETIC PEPTIDE STAT 03/01/2025 5:39 PM EDT TROPONIN I HIGH SENSITIVITY STAT 03/01/2025 5:39 PM EDT CBC WITH AUTO DIFFERENTIAL STAT 03/01/2025 5:39 PM EDT CBC AND DIFFERENTIAL STAT 03/01/2025 5:39 PM EDT COMPREHENSIVE METABOLIC PANEL STAT 03/01/2025 5:39 PM EDT RESPIRATORY VIRUS PANEL MOLECULAR STUDY Routine 02/22/2025 2:45 PM EDT HEMOGLOBIN AND HEMATOCRIT Routine 02/22/2025 10:07 AM EDT HEMODIALYSIS INPATIENT Routine 11:21 AM EDT OXYGEN THERAPY, ADULT STAT 02/21/2025 8:02 AM EDT CBC WITH AUTO DIFFERENTIAL Routine 02/21/2025 6:24 AM EDT BASIC METABOLIC PANEL Routine 02/21/2025 6:24 AM EDT CBC AND DIFFERENTIAL Routine 02/21/2025 6:24 AM EDT OXYGEN THERAPY, ADULT STAT 02/20/2025 8:00 PM EDT HEMODIALYSIS INPATIENT Routine 3:02 PM EDT TRANSFUSE RED BLOOD CELLS Routine 02/20/2025 2:42 PM EDT TYPE AND SCREEN Routine 02/20/2025 1:19 PM EDT PREPARE RBC Routine 02/20/2025 12:52 PM EDT HEMOGLOBIN AND HEMATOCRIT STAT 02/20/2025 11:16 AM EDT OXYGEN THERAPY, ADULT STAT 02/20/2025 8:00 AM EDT CBC WITH AUTO DIFFERENTIAL Routine 02/20/2025 5:43 AM EDT CBC AND DIFFERENTIAL Routine 02/20/2025 5:43 AM EDT BASIC METABOLIC PANEL Routine 02/20/2025 5:43 AM EDT OXYGEN THERAPY, ADULT STAT 02/19/2025 8:00 PM EDT PROTHROMBIN TIME WITH INR STAT 02/19/2025 5:51 PM EDT XR CHEST 1 VIEW STAT 02/19/2025 10:00 AM EDT OXYGEN THERAPY, ADULT STAT 02/19/2025 8:00 AM EDT CBC WITH AUTO DIFFERENTIAL Routine 02/19/2025 6:17 AM EDT CBC AND DIFFERENTIAL Routine 02/19/2025 6:17 AM EDT BASIC METABOLIC PANEL Routine 02/19/2025 6:17 AM EDT OXYGEN THERAPY, ADULT STAT 02/18/2025 8:00 PM EDT OXYGEN THERAPY, ADULT STAT 02/18/2025 8:02 AM EDT HEMODIALYSIS INPATIENT Routine 6:51 AM EDT OXYGEN THERAPY, ADULT STAT 02/17/2025 8:00 PM EDT OXYGEN THERAPY, ADULT STAT 02/17/2025 8:02 AM EDT CBC WITH AUTO DIFFERENTIAL Add-On 02/17/2025 3:12 AM EDT CBC AND DIFFERENTIAL Add-On 02/17/2025 3:12 AM EDT LAVENDER - EDTA Routine 02/17/2025 3:12 AM EDT EXTRA TUBES Routine 02/17/2025 3:12 AM EDT BASIC METABOLIC PANEL Routine 02/17/2025 3:12 AM EDT OXYGEN THERAPY, ADULT STAT 02/16/2025 8:00 PM EDT HEMODIALYSIS INPATIENT Routine 6:51 PM EDT IR INSERT TUNNELED CVC WO PORT OR PUMP MORE 5YRS RIGHT Routine 02/16/2025 5:05 PM EDT BASIC METABOLIC PANEL STAT 02/16/2025 2:56 PM EDT CBC WITH AUTO DIFFERENTIAL Routine 02/16/2025 8:27 AM EDT MAGNESIUM Routine 02/16/2025 8:27 AM EDT BASIC METABOLIC PANEL Routine 02/16/2025 8:27 AM EDT CBC AND DIFFERENTIAL Routine 02/16/2025 8:27 AM EDT OXYGEN THERAPY, ADULT STAT 02/16/2025 8:01 AM EDT OXYGEN THERAPY, ADULT STAT 02/15/2025 8:00 PM EDT TROPONIN I HIGH SENSITIVITY STAT 02/15/2025 2:59 PM EDT OXYGEN THERAPY, ADULT STAT 02/15/2025 8:02 AM EDT CBC WITH AUTO DIFFERENTIAL Routine 02/15/2025 6:49 AM EDT MAGNESIUM Routine 02/15/2025 6:49 AM EDT BASIC METABOLIC PANEL Routine 02/15/2025 6:49 AM EDT CBC AND DIFFERENTIAL Routine 02/15/2025 6:49 AM EDT OXYGEN THERAPY, ADULT STAT 02/14/2025 8:00 PM EDT VAS US DUPLEX UPPER EXT VENOUS RIGHT STAT 02/14/2025 4:19 PM EDT Edema of right upper arm ECG ANNOTATED 02/14/2025 OXYGEN THERAPY, ADULT STAT 02/13/2025 8:00 PM EDT HEMODIALYSIS INPATIENT Routine 2:49 PM EDT OXYGEN THERAPY, ADULT STAT 02/13/2025 8:00 AM EDT TROPONIN I HIGH SENSITIVITY Routine 02/13/2025 6:53 AM EDT CBC WITH AUTO DIFFERENTIAL Routine 02/13/2025 6:53 AM EDT PHOSPHORUS Routine 02/13/2025 6:53 AM EDT CBC AND DIFFERENTIAL Routine 02/13/2025 6:53 AM EDT MAGNESIUM Routine 02/13/2025 6:53 AM EDT BASIC METABOLIC PANEL Routine 02/13/2025 6:53 AM EDT POCT GLUCOSE BLOOD Routine 02/13/2025 12 :36 AM EDT POCT GLUCOSE BLOOD Routine 02/12/2025 9: 12 PM EDT OXYGEN THERAPY, ADULT STAT 02/12/2025 8:00 PM EDT TYPE AND SCREEN STAT 02/12/2025 7:49 PM EDT HEMODIALYSIS INPATIENT Routine 6:05 PM EDT HEPATITIS B SURFACE ANTIBODY QUANTITATIVE Add-On 02/12/2025 5:20 PM EDT HEPATITIS B SURFACE ANTIGEN WITH CONFIRMATION Add-On 02/12/2025 5:20 PM EDT IRON AND TIBC Add-On 02/12/2025 5:20 PM EDT FERRITIN Add-On 02/12/2025 5:20 PM EDT HAPTOGLOBIN Add-On 02/12/2025 5:20 PM EDT FOLATE Add-On 02/12/2025 5:20 PM EDT VITAMIN B12 Add-On 02/12/2025 5:20 PM EDT POTASSIUM STAT 02/12/2025 5:20 PM EDT XR CHEST 1 VIEW STAT 02/12/2025 3:32 PM EDT OXYGEN THERAPY, ADULT STAT 02/12/2025 3:28 PM EDT OXYGEN THERAPY, ADULT STAT 02/12/2025 3:28 PM EDT RETICULOCYTE COUNT Add-On 02/12/2025 3: 28 PM EDT CBC WITH AUTO DIFFERENTIAL STAT 02/12/2025 3:28 PM EDT HCG, SERUM, QUALITATIVE STAT 02/12/2025 3:28 PM EDT CBC AND DIFFERENTIAL STAT 02/12/2025 3:28 PM EDT TROPONIN I HIGH SENSITIVITY STAT 02/12/2025 3:28 PM EDT PHOSPHORUS STAT 02/12/2025 3:28 PM EDT MAGNESIUM STAT 02/12/2025 3:28 PM EDT HEPATIC FUNCTION PANEL STAT 3:28 PM EDT BASIC METABOLIC PANEL STAT 02/12/2025 3:28 PM EDT ECG 12-LEAD STAT 02/12/2025 3:10 PM EDT from Last 3 Months Results * ECG-Outside (04/11/2025) us Provider Onbase MD ECG ORDERABLES Final Result * ECG-Annotated (04/11/2025) Only the most recent of3 resultswithin the time period is included. us Provider Onbase MD ECG ORDERABLES Final Result * (ABNORMAL) Complete blood count (04/07/2025 5:49 AM EST) Only the most recent of2 resultswithin the time period is included. WBC 6.0 4.8 - 10.8 K/mcL LAB HEMETOLOGY METHOD 04/07/2025 7:10 AM [facility] RBC 2.70(L) 3.80 - 4.80 M/mcL LAB HEMETOLOGY METHOD 04/07/2025 7:10 AM [facility] Hemoglobin 8.1(L) 11.5 - 16.0 g/dL LAB HEMETOLOGY METHOD 04/07/2025 7:10 AM [facility] Hematocrit 25.3(L) 35.0 - 47.0 % LAB HEMETOLOGY METHOD 04/07/2025 7:10 AM [facility] MCV 92.7 79.0 - 98.0 FL LAB HEMETOLOGY METHOD 04/07/2025 7:10 AM [facility] MCH 29.7 27.0 - 32.0 pcg LAB HEMETOLOGY METHOD 04/07/2025 7:10 AM [facility] MCHC 32.0 32.0 - 37.0 g/dL LAB HEMETOLOGY METHOD 04/07/2025 7:10 AM [facility] RDW 15.9(H) 11.0 - 15.0 % LAB HEMETOLOGY METHOD 04/07/2025 7:10 AM EST [facility] Platelets 143 130 - 400 K/mcL LAB HEMETOLOGY METHOD 04/07/2025 7:10 AM [facility] MPV 10.6 7.0 - 11.0 FL LAB HEMETOLOGY METHOD 04/07/2025 7:10 AM EST [facility] NRBC 0.0 <1.0 % LAB HEMETOLOGY METHOD 04/07/2025 7:10 AM EST [facility] NRBC Absolute 0.00 <0.10 K/mcL LAB HEMETOLOGY METHOD 04/07/2025 7:10 AM [facility] Blood Venous blood specimen / Unknown Venipuncture / Unknown 04/07/2025 5:49 AM EST 04/07/2025 6:32 AM EST Moy Chilel MD LAB BLOOD ORDERABLES Final Re sult [facility] [address] [place] [address], [place] [phone] * (ABNORMAL) C-reactive protein (04/07/2025 5:49 AM EST) Only the most recent of3 resultswithin the time period is included. C-Reactive Protein 1.02(H) <=0.50 mg/dL LAB CHEMISTRY METHOD 04/07/2025 5:08 PM EST [facility] Blood Venous blood specimen / Unknown Venipuncture / Unknown 04/07/2025 5:49 AM EST 04/07/2025 6:32 AM EST Ruth Mckeon MD LAB BLOOD ORDERABLES Final Resu lt [facility] [address] [place] [address], [place] [phone] * (ABNORMAL) Basic metabolic panel (04/07/2025 5:49 AM EST) Only the most recent of18 resultswithin the time period is included. Sodium 134 133 - 145 mmol/L LAB CHEMISTRY METHOD 04/07/2025 7:52 AM [facility] Potassium 4.3 3.5 - 5.5 mmol/L LAB CHEMISTRY METHOD 04/07/2025 7:52 AM [facility] Chloride 94(L) 96 - 110 mmol/L LAB CHEMISTRY METHOD 04/07/2025 7:52 AM [facility] CO2 30 21 - 32 mmol/L LAB CHEMISTRY METHOD 04/07/2025 7:52 AM [facility] Anion Gap 10 3 - 11 LAB CHEMISTRY METHOD 04/07/2025 7:52 AM [facility] Glucose 94 70 - 100 mg/dL LAB CHEMISTRY METHOD 04/07/2025 7:52 AM [facility] BUN 34(H) 5 - 25 mg/dL LAB CHEMISTRY METHOD 04/07/2025 7:52 AM [facility] Creatinine 7.30(H) 0.50 - 1.10 mg/dL LAB CHEMISTRY METHOD 04/07/2025 7:52 AM [facility] eGFR 7(L) >=60 mL/min/1. 73m2 LAB CHEMISTRY METHOD 04/07/2025 7:52 AM [facility] Comment:Calculation based on the Chronic Kidney Disease Epidemiology Collaboration (CKD-EPI) equation refit without adjustment for race. BUN/Creatinine Ratio 4.7 LAB CHEMISTRY METHOD 04/07/2025 7:52 AM [facility] Calcium 7.8(L) 8.5 - 10.5 mg/dL LAB CHEMISTRY METHOD 04/07/2025 7:52 AM [facility] Blood Venous blood specimen / Unknown Venipuncture / Unknown 04/07/2025 5:49 AM EST 04/07/2025 6:32 AM EST Moy Chilel MD LAB BLOOD ORDERABLES Final Re sult [facility] [address] [place] [address], * Levetiracetam level (04/06/2025 7:30 AM EST) Levetiracetam 19.0 3.0 - 60.0 ug/mL 04/08/2025 8:04 AM EST [facility] Comment: Steady state trough serum or plasma levels following doses of 1000 to 3000 mg/Day: 3 to 37 ug/mL. The same dosage regimen will typically result in peak levels of 10 to 60 ug/mL, at approximately 1.5 hours post dose. If applicable, any drug confirmation testing reported here was developed and the performance characteristics determined by [place]. This confirmation testing has not been cleared or approved by the FDA. The laboratory is regulated under CLIA as qualified to perform high-complexity testing. This test is used for patient testing purposes. It should not be regarded as investigational or for research. Test performed at [facility], [address] , [place] [address] Alena Hansen MD, PhD - Patch Sander Blood Venous blood specimen / Unknown Venipuncture / Unknown 04/06/2025 7:30 AM EST 04/06/2025 7:39 AM EST Jermaine Rivera MD LAB BLOOD ORDERABLES Fi nal Result [facility] [address] [place] [address] * (ABNORMAL) CBC auto differential (04/06/2025 6:10 AM EST) Only the most recent of19 resultswithin the time period is included. WBC 5.8 4.8 - 10.8 K/mcL LAB HEMETOLOGY METHOD 04/06/2025 6:35 AM [facility] RBC 2.50(L) 3.80 - 4.80 M/mcL LAB HEMETOLOGY METHOD 04/06/2025 6:35 AM [facility] Hemoglobin 7.4(L) 11.5 - 16.0 g/dL LAB HEMETOLOGY METHOD 04/06/2025 6:35 AM [facility] Hematocrit 23.3(L) 35.0 - 47.0 % LAB HEMETOLOGY METHOD 04/06/2025 6:35 AM [facility] MCV 94.0 79.0 - 98.0 FL LAB HEMETOLOGY METHOD 04/06/2025 6:35 AM [facility] MCH 29.8 27.0 - 32.0 pcg LAB HEMETOLOGY METHOD 04/06/2025 6:35 AM [facility] MCHC 31.8(L) 32.0 - 37.0 g/dL LAB HEMETOLOGY METHOD 04/06/2025 6:35 AM [facility] RDW 15.8(H) 11.0 - 15.0 % LAB HEMETOLOGY METHOD 04/06/2025 6:35 AM [facility] Platelets 122(L) 130 - 400 K/mcL LAB HEMETOLOGY METHOD 04/06/2025 6:35 AM [facility] MPV 10.4 7.0 - 11.0 FL LAB HEMETOLOGY METHOD 04/06/2025 6:35 AM [facility] NRBC 0.0 <1.0 % LAB HEMETOLOGY METHOD 04/06/2025 6:35 AM [facility] NRBC Absolute 0.00 <0.10 K/mcL LAB HEMETOLOGY METHOD 04/06/2025 6:35 AM [facility] Neutrophils Relative 72.9 % LAB HEMETOLOGY METHOD 04/06/2025 6:35 AM [facility] Lymphocytes Relative 9.5 % LAB HEMETOLOGY METHOD 04/06/2025 6:35 AM [facility] Monocytes Relative 8.1 % LAB HEMETOLOGY METHOD 04/06/2025 6:35 AM [facility] Eosinophils Relative 8.5 % LAB HEMETOLOGY METHOD 04/06/2025 6:35 AM [facility] Basophils Relative 0.7 % LAB HEMETOLOGY METHOD 04/06/2025 6:35 AM [facility] Immature Granulocytes Relative 0.3 % LAB HEMETOLOGY METHOD 04/06/2025 6:35 AM [facility] Neutrophils Absolute 4.21 1.50 - 7.00 K/mcL LAB HEMETOLOGY METHOD 04/06/2025 6:35 AM [facility] Lymphocytes Absolute 0.55(L) 1.00 - 5.00 K/mcL LAB HEMETOLOGY METHOD 04/06/2025 6:35 AM [facility] Monocytes Absolute 0.47 0.20 - 1.00 K/mcL LAB HEMETOLOGY METHOD 04/06/2025 6:35 AM [facility] Eosinophils Absolute 0.49 0.00 - 0.50 K/mcL LAB HEMETOLOGY METHOD 04/06/2025 6:35 AM [facility] Basophils Absolute 0.04 0.00 - 0.20 K/mcL LAB HEMETOLOGY METHOD 04/06/2025 6:35 AM [facility] Immature Granulocytes Absolute 0.02 0.00 - 0.03 K/mcL LAB HEMETOLOGY METHOD 04/06/2025 6:35 AM [facility] Blood Venous blood specimen / Unknown Venipuncture / Unknown 04/06/2025 6:10 AM EST 04/06/2025 6:21 AM EST us Jermaine Rivera MD LAB BLOOD ORDERABLES Fi nal Result [facility] [address] [place] [address], [place] [phone] * (ABNORMAL) Phosphorus (04/06/2025 6:10 AM EST) Only the most recent of5 resultswithin the time period is included. Phosphorus 8.6(H) 2.5 - 4.5 mg/dL LAB CHEMISTRY METHOD 04/06/2025 6:49 AM EST [facility] Blood Venous blood specimen / Unknown Venipuncture / Unknown 04/06/2025 6:10 AM EST 04/06/2025 6:21 AM EST us Jermaine Rivera MD LAB BLOOD ORDERABLES Fi nal Result Performing Organization Address City/[facility] Co de Phone Number [facility] [address] [place] [address], [place] [phone] * Magnesium (04/06/2025 6:10 AM EST) Only the most recent of10 resultswithin the time period is included. Magnesium 2.1 1.9 - 2.6 mg/dL LAB CHEMISTRY METHOD 04/06/2025 6:47 AM EST [facility] Blood Venous blood specimen / Unknown Venipuncture / Unknown 04/06/2025 6:10 AM EST 04/06/2025 6:21 AM EST us Jermaine Rivera MD LAB BLOOD ORDERABLES Fi nal Result Performing Organization Address City/[facility]/ZIP Co de Phone Number [facility] [address] [place] [address], [place] [phone] * (ABNORMAL) POCT Glucose, blood (04/06/2025 4:58 AM EST) Only the most recent of8 resultswithin the time period is included. [facility] Glucose POCT 113(H) 70 - 100 mg/dL 04/06/2025 4:59 AM EST [facility] Blood Capillary blood specimen / Unknown 04/06/2025 4:58 AM EST 04/06/2025 5:01 AM EST us Generic Provider Poct LAB POINT OF CARE TEST DOCKED DEVICE UNSOLICITED RESULTS Final Result Performing Organization Address City/[facility]/ZIP Co de Phone Number [facility] [address] [place] [address], * Troponin I high sensitivity (04/06/2025 3:45 AM EST) Only the most recent of15 resultswithin the time period is included. [facility] High Sensitivity Troponin I 28 <=54 ng/L LAB CHEMISTRY METHOD 04/06/2025 4:17 AM EST [facility] Blood Venous blood specimen / Unknown Venipuncture / Unknown 04/06/2025 3:45 AM EST 04/06/2025 3:50 AM EST Narrative [facility] - 04/06/2025 4:17 AM EST High levels of biotin in samples may falsely decrease hsTroponin values. Use caution when interpreting hsTroponin results in patients taking biotin who exhibit renal impairment (eGFR <60) or in patients taking more than 20 mg/day of biotin. Mariza Rodriges MD LAB BLOOD ORDERABLES Final Res ult [facility] [address] [place] [address], * Type and screen (04/06/2025 2:19 AM EST) Only the most recent of3 resultswithin the time period is included. [facility] ABO Group O 04/06/2025 4:06 AM EST [facility] Rh Type Positive 04/06/2025 4:06 AM [facility] Antibody Screen Negative 04/06/2025 4:06 AM [facility] Blood Venous blood specimen / Unknown Venipuncture / Unknown 04/06/2025 2:19 AM EST 04/06/2025 2:26 AM EST Mariza Rodriges MD LAB BLOOD BANK TEST ORDERABLES Final Result Performing Organization Address City/[facility]/ZIP Co de Phone Number [facility] [address] [place] [address], [place] [phone] * hCG, serum, qualitative (04/06/2025 2:19 AM EST) Only the most recent of4 resultswithin the time period is included. hCG Qual Negative Negative 04/06/2025 2:43 AM [facility] Blood Venous blood specimen / Unknown Venipuncture / Unknown 04/06/2025 2:19 AM EST 04/06/2025 2:26 AM EST Mariza Rodriges MD LAB BLOOD ORDERABLES Final Res ult Performing Organization Address [facility]/ZIP Co de Phone Number [facility] [address] [place] [address], [place] [phone] * (ABNORMAL) Comprehensive metabolic panel (04/06/2025 2:19 AM EST) Only the most recent of4 resultswithin the time period is included. Sodium 130(L) 133 - 145 mmol/L LAB CHEMISTRY METHOD 04/06/2025 3:15 AM [facility] Potassium 6.0(H) 3.5 - 5.5 mmol/L LAB CHEMISTRY METHOD 04/06/2025 3:15 AM [facility] Chloride 92(L) 96 - 110 mmol/L LAB CHEMISTRY METHOD 04/06/2025 3:15 AM [facility] CO2 26 21 - 32 mmol/L LAB CHEMISTRY METHOD 04/06/2025 3:15 AM [facility] Anion Gap 12(H) 3 - 11 LAB CHEMISTRY METHOD 04/06/2025 3:15 AM [facility] Glucose 110(H) 70 - 100 mg/dL LAB CHEMISTRY METHOD 04/06/2025 3:15 AM [facility] BUN 88(H) 5 - 25 mg/dL LAB CHEMISTRY METHOD 04/06/2025 3:15 AM [facility] Creatinine 12.70(HH) 0.50 - 1.10 mg/dL LAB CHEMISTRY METHOD 04/06/2025 3:15 AM [facility] eGFR 4(L) >=60 mL/min/1 .73m2 LAB CHEMISTRY METHOD 04/06/2025 3:15 AM [facility] Comment:Calculation based on the Chronic Kidney Disease Epidemiology Collaboration (CKD-EPI) equation refit without adjustment for race. BUN/Creatinine Ratio 6.9 LAB CHEMISTRY METHOD 04/06/2025 3:15 AM [facility] Calcium 6.3(L) 8.5 - 10.5 mg/dL LAB CHEMISTRY METHOD 04/06/2025 3:15 AM [facility] AST (SGOT) 20 10 - 42 unit/L LAB CHEMISTRY METHOD 04/06/2025 3:15 AM [facility] ALT (SGPT) 33 10 - 60 unit/L LAB CHEMISTRY METHOD 04/06/2025 3:15 AM [facility] Alkaline Phosphatase 147(H) 42 - 121 unit/L LAB CHEMISTRY METHOD 04/06/2025 3:15 AM [facility] Total Protein 7.5 6.0 - 8.0 g/dL LAB CHEMISTRY METHOD 04/06/2025 3:15 AM [facility] Albumin 3.8 3.2 - 5.0 g/dL LAB CHEMISTRY METHOD 04/06/2025 3:15 AM EST [facility] Total Bilirubin 0.6 0.0 - 1.4 mg/dL LAB CHEMISTRY METHOD 04/06/2025 3:15 AM EST [facility] Blood Venous blood specimen / Unknown Venipuncture / Unknown 04/06/2025 2:19 AM EST 04/06/2025 2:25 AM EST Mariza Rodriges MD LAB BLOOD ORDERABLES Final Res ult [facility]) [facility] [address] [place] [address], [place] [phone] * ECG 12 lead (04/06/2025 1:58 AM EST) Only the most recent of8 resultswithin the time period is included. Ventricular Rate ECG 73 BPM GEMUSE Atrial Rate 73 BPM GEMUSE P-R Interval 180 ms GEMUSE QRS Duration 88 ms GEMUSE Q-T Interval 472 ms GEMUSE QTc 519 ms GEMUSE P Wave [place] 50 degrees GEMUSE R [place] 5 degrees GEMUSE T [place] 142 degrees GEMUSE ECG Interpretation Normal sinus rhythm ST and T wave abnormality, consider inferolateral ischemia Prolonged QT Abnormal ECG When compared with ECG of 01-APR-2025 22:23, No significant change was found Confirmed by Marilee OLIVIA JOHN ([id number]) on 04/06/2025 3:51:10 PM GEMUSE 04/06/2025 1:58 AM EST 04/06/2025 3:51 PM EST Mariza Rodriges MD ECG ORDERABLES Final Result GEMUSE * XR Hip 2-3 Views Right (04/03/2025 4:10 PM EST) Anatomical Region Laterality Modality Lower Extremities, Hip Right Radiograp hic Imaging 04/03/2025 4:46 PM EST Impressions 04/03/2025 4:52 PM EST No fracture or subluxation demonstrated -------- FINAL REPORT -------- Dictated By: Julio Gomez Dictated Date: 04/03/2025 16:46 ET Assigned Physician: Julio Gomez Reviewed and Electronically Signed By: Julio Gomez Signed Date: 04/03/2025 16:52 ET Workstation ID: [id number] Transcribed By: Self Edit Transcribed Date: 04/03/2025 16:46 ET Narrative 04/03/2025 4:52 PM EST EXAMINATION: RIGHT SHOULDER PELVIS RIGHT HIP CLINICAL INFORMATION: Trauma. Fall. Pain COMPARISON: None. TECHNIQUE: 3 views right shoulder Frontal view pelvis 2 views right hip FINDINGS: Right shoulder: No fracture or subluxation. No focal lesion. No suspicious abnormality in visualized portions of the chest. Surgical clips at the base of the neck. The lungs are not well evaluated. Pelvis: The SI joints, hips and symphysis are in normal alignment. Some of the sacrum is obscured. No definite acute pelvic fracture. No suspicious pelvic mass or collection. Right hip: The hip is in normal alignment. The joint space is preserved. The femoral head contour is smooth. No fracture demonstrated Procedure Note Julio Gomez MD - 04/03/2025 EXAMINATION: RIGHT SHOULDER PELVIS RIGHT HIP CLINICAL INFORMATION: Trauma. Fall. Pain COMPARISON: None. TECHNIQUE: 3 views right shoulder Frontal view pelvis 2 views right hip FINDINGS: Right shoulder: No fracture or subluxation. No focal lesion. No suspicious abnormality in visualized portions of the chest. Surgical clips at the base of the neck. The lungs are not well evaluated. Pelvis: The SI joints, hips and symphysis are in normal alignment. Some of the sacrum is obscured. No definite acute pelvic fracture. No suspicious pelvic mass or collection. Right hip: The hip is in normal alignment. The joint space is preserved. The femoralhead contour is smooth. No fracture demonstrated IMPRESSION: No fracture or subluxation demonstrated -------- FINAL REPORT -------- Dictated By: Julio Gomez Dictated Date: 04/03/2025 16:46 ET Assigned Physician: Julio Gomez Reviewed and Electronically Signed By: Julio Gomez Signed Date: 04/03/2025 16:52 ET Workstation ID: [id number] Transcribed By: Self Edit Transcribed Date: 04/03/2025 16:46 ET us Glenny Rogers MD IMG XR PROCEDURES Final Result * XR Shoulder 2+ Views Right (04/03/2025 4:10 PM EST) Anatomical Region Laterality Modality Upper Extremities, Shoulder Right Radi ographic Imaging 04/03/2025 4:46 PM EST Impressions 04/03/2025 4:52 PM EST No fracture or subluxation demonstrated -------- FINAL REPORT -------- Dictated By: Julio Gomez Dictated Date: 04/03/2025 16:46 ET Assigned Physician: Julio Gomez Reviewed and Electronically Signed By: Julio Gomez Signed Date: 04/03/2025 16:52 ET Workstation ID: [id number] Transcribed By: Self Edit Transcribed Date: 04/03/2025 16:46 ET Narrative 04/03/2025 4:52 PM EST EXAMINATION: RIGHT SHOULDER PELVIS RIGHT HIP CLINICAL INFORMATION: Trauma. Fall. Pain COMPARISON: None. TECHNIQUE: 3 views right shoulder Frontal view pelvis 2 views right hip FINDINGS: Right shoulder: No fracture or subluxation. No focal lesion. No suspicious abnormality in visualized portions of the chest. Surgical clips at the base of the neck. The lungs are not well evaluated. Pelvis: The SI joints, hips and symphysis are in normal alignment. Some of the sacrum is obscured. No definite acute pelvic fracture. No suspicious pelvic mass or collection. Right hip: The hip is in normal alignment. The joint space is preserved. The femoral head contour is smooth. No fracture demonstrated Procedure Note Julio Gomez MD - 04/03/2025 EXAMINATION: RIGHT SHOULDER PELVIS RIGHT HIP CLINICAL INFORMATION: Trauma. Fall. Pain COMPARISON: None. TECHNIQUE: 3 views right shoulder Frontal view pelvis 2 views right hip FINDINGS: Right shoulder: No fracture or subluxation. No focal lesion. No suspicious abnormality in visualized portions of the chest. Surgical clips at the base of the neck. The lungs are not well evaluated. Pelvis: The SI joints, hips and symphysis are in normal alignment. Some of the sacrum is obscured. No definite acute pelvic fracture. No suspicious pelvic mass or collection. Right hip: The hip is in normal alignment. The joint space is preserved. The femoralhead contour is smooth. No fracture demonstrated IMPRESSION: No fracture or subluxation demonstrated -------- FINAL REPORT -------- Dictated By: Julio Gomez Dictated Date: 04/03/2025 16:46 ET Assigned Physician: Julio Gomez Reviewed and Electronically Signed By: Julio Gomez Signed Date: 04/03/2025 16:52 ET Workstation ID: [id number] Transcribed By: Self Edit Transcribed Date: 04/03/2025 16:46 ET Glenny Rogers MD IMG XR PROCEDURES Final Result * CT Cervical Spine wo Contrast (04/03/2025 3:47 PM EST) Anatomical Region Laterality Modality Spine, C-spine Computed Tomogra phy 04/03/2025 4:57 PM EST Impressions 04/03/2025 4:57 PM EST Impression: Normal cervical spine This document has been electronically signed by: Zhen Irwin MD on 04/03/2025 16:57:59 Narrative 04/03/2025 4:57 PM EST INDICATION: Fall, neck pain 3 views cervical spine Comparison: None Findings: No fractures or dislocations. Normal vertebral body alignment. No significant arthritic change. Prevertebral soft tissues and visualized lung apices are normal. Procedure Note Zhen Irwin MD - 04/03/2025 INDICATION: Fall, neck pain 3 views cervical spine Comparison: None Findings: No fractures or dislocations. Normal vertebral body alignment. No significant arthritic change. Prevertebral soft tissues andvisualized lung apices are normal. IMPRESSION: Impression: Normal cervical spine This document has been electronically signed by: Zhen Irwin MD on 04/03/2025 16:57:59 us Glenny Rogers MD IMG CT PROCEDURES Final Result * Lavender tube (04/02/2025 8:38 AM EDT) Only the most recent of3 resultswithin the time period is included. Extra Tube Hold for add-ons. 04/02/2025 10:01 AM EDT [facility] Comment:Auto resulted. Blood Venous blood specimen / Unknown 04/02/2025 8:38 AM EDT 04/02/2025 8:44 AM EDT Glenny Rogers MD LAB BLOOD ORDERABLES Final Res ult Performing Organization Address [facility]/ZIP Co de Phone Number [facility] [address] [place] [address], [place] [phone] * Potassium (04/02/2025 8:38 AM EDT) Only the most recent of2 resultswithin the time period is included. Pathologist [facility] Potassium 5.5 3.5 - 5.5 mmol/L LAB CHEMISTRY METHOD 04/02/2025 9:09 AM EDT [facility] Blood Venous blood specimen / Unknown Venipuncture / Unknown 04/02/2025 8:38 AM EDT 04/02/2025 8:43 AM EDT Glenny Rogers MD LAB BLOOD ORDERABLES Final Res ult [facility] [address] [place] [address], [place] [phone] * XR Chest 1 View (04/02/2025 2:58 AM EDT) Only the most recent of6 resultswithin the time period is included. Anatomical Region Laterality Modality Body Radiographic Juany ging 04/02/2025 7:07 AM EDT Impressions 04/02/2025 7:09 AM EDT Prominent cardiac silhouette. Possibilities include primary myocardial disease, valve disease or pericardial disease. Prominent central vessels. Possibilities include fluid overload. Constellation of findings suggest underlying chronic renal disease -------- FINAL REPORT -------- Dictated By: Julio Gomez Dictated Date: 04/02/2025 07:07 ET Assigned Physician: Julio Gomez Reviewed and Electronically Signed By: Julio Gomez Signed Date: 04/02/2025 07:09 ET Workstation ID: [id number] Transcribed By: Self Edit Transcribed Date: 04/02/2025 07:07 ET Narrative 04/02/2025 7:09 AM EDT EXAMINATION: CHEST CLINICAL INFORMATION: Chest pain COMPARISON: Frontal view 03/10/25 TECHNIQUE: Portable frontal sitting view of the chest FINDINGS: Devices overlie the patient. Mild rotation to the right. Markedly enlarged globular cardiac silhouette. No large hilar mass. The central vessels are prominent but there is no definite alveolar edema. There may be some mild perihilar interstitial prominence. No dense focal pneumonia or pneumothorax. Surgical clips at the thoracic inlet. Procedure Note Julio Gomez MD - 04/02/2025 EXAMINATION: CHEST CLINICAL INFORMATION: Chest pain COMPARISON: Frontal view 03/10/25 TECHNIQUE: Portable frontal sitting view of the chest FINDINGS: Devices overlie the patient. Mild rotation to the right. Markedly enlargedglobular cardiac silhouette. No large hilar mass. The central vessels areprominent but there is no definite alveolar edema. There may be some mildperihilar interstitial prominence. No dense focal pneumonia or pneumothorax. Surgical clips at the thoracic inlet. IMPRESSION: Prominent cardiac silhouette. Possibilities include primary myocardialdisease, valve disease or pericardial disease. Prominent central vessels. Possibilities include fluid overload. Constellation of findings suggest underlying chronic renal disease -------- FINAL REPORT -------- Dictated By: Julio Gomez Dictated Date: 04/02/2025 07:07 ET Assigned Physician: Julio Gomez Reviewed and Electronically Signed By: Julio Gomez Signed Date: 04/02/2025 07:09 ET Workstation ID: [id number] Transcribed By: Self Edit Transcribed Date: 04/02/2025 07:07 ET Celia Kidd MD IMG XR PROCEDURES Final Result * (ABNORMAL) B-type natriuretic peptide (04/02/2025 12:59 AM EDT) Only the most recent of3 resultswithin the time period is included. BNP 2,324(H) <=100 pcg/mL LAB CHEMISTRY METHOD 04/02/2025 2:47 AM EDT [facility] Blood Venous blood specimen / Unknown Venipuncture / Unknown 04/02/2025 12:59 AM EDT 04/02/2025 1:33 AM EDT Lisa Altman MD LAB BLOOD ORDERABLES Final R esult Performing Organization Address [facility]/ZIP Co de Phone Number [facility] [address] [place] [address], [place] [phone] * Lipase (04/02/2025 12:57 AM EDT) Lipase 24 13 - 75 unit/L LAB CHEMISTRY METHOD 04/02/2025 1:58 AM EDT [facility] Blood Venous blood specimen / Unknown Venipuncture / Unknown 04/02/2025 12:57 AM EDT 04/02/2025 1:33 AM EDT Penelope HOGAN LAB BLOOD ORDERABLES Fin al Result Performing Organization Address [facility]/ZIP Co de Phone Number [facility] [address] [place] [address], [place] [phone] * CT Chest wo Contrast (03/10/2025 5:30 PM EDT) Anatomical Region Laterality Modality Body Computed Tomogra phy 03/10/2025 5:47 PM EDT Impressions 03/10/2025 5:47 PM EDT 1. Multiple enlarged axillary, chest wall, supraclavicular, mediastinal and retroperitoneal lymphadenopathy. Findings are suggestive of a systemic process including lymphoma. Likely splenomegaly. 2. Marked cardiomegaly. Small pericardial effusion. Enlarged main pulmonary artery can be associated with pulmonary hypertension. 3. Diminutive kidneys partially visualized. This document has been electronically signed by: Jesús Clements MD on 03/10/2025 17:47:35 Narrative 03/10/2025 5:47 PM EDT INDICATION: chest pain CT chest without IV contrast. COMPARISON: XR chest dated 03/10/25 at 14:23 EDT FINDINGS: Visualized thyroid is unremarkable. Multiple enlarged axillary, supraclavicular and mediastinal lymph nodes. Cardiomegaly. Small pericardial effusion. Pulmonary artery is enlarged measuring up to 3.5 cm. Normal esophagus. No pleural effusion. No focal consolidation. Small areas of air trapping along the lung bases bilaterally. Trachea and central airways are clear. No significant bronchial wall thickening. No bronchiectasis. Small calcified granulomas present within the lower lobes bilaterally. Several prominent retroperitoneal lymph nodes partially visualized in the upper abdomen. Diminutive kidneys bilaterally. Likely splenomegaly. No acute fracture or suspicious bone lesion. Procedure Note Jesús Clements MD - 03/10/2025 INDICATION: chest pain CT chest without IV contrast. COMPARISON: XR chest dated 03/10/25 at 14:23 EDT FINDINGS: Visualized thyroid is unremarkable. Multiple enlarged axillary, supraclavicular and mediastinal lymph nodes. Cardiomegaly. Small pericardial effusion. Pulmonary artery is enlarged measuring up to 3.5 cm. Normal esophagus. No pleural effusion. No focal consolidation. Small areas of air trapping along the lung bases bilaterally. Trachea and central airways are clear. No significant bronchial wall thickening. No bronchiectasis. Small calcified granulomas present within the lower lobes bilaterally. Several prominent retroperitoneal lymph nodes partially visualized inthe upper abdomen. Diminutive kidneys bilaterally. Likely splenomegaly. No acute fracture or suspicious bone lesion. IMPRESSION: 1. Multiple enlarged axillary, chest wall, supraclavicular, mediastinal and retroperitoneal lymphadenopathy. Findings are suggestive of asystemic process including lymphoma. Likely splenomegaly. 2. Marked cardiomegaly. Small pericardial effusion. Enlarged main pulmonary artery can be associated with pulmonary hypertension. 3. Diminutive kidneys partially visualized. This document has been electronically signed by: Jesús Clements MD on 03/10/2025 17:47:35 Solomon Gunderson MD IMG CT PROCEDURES Final Resul t * Light blue tube (03/10/2025 4:36 PM EDT) Extra Tube Hold for add-ons. 03/10/2025 6:01 PM EDT [facility] Comment:Auto resulted. Blood Venous blood specimen / Unknown Venipuncture / Unknown 03/10/2025 4:36 PM EDT 03/10/2025 4:55 PM EDT us Moise Barraza MD LAB BLOOD ORDERABLES F inal Result Performing Organization Address [facility]/ZIP Co de Phone Number [facility] [address] [place] [address], [place] [phone] * Culture blood (03/10/2025 4:36 PM EDT) Only the most recent of2 resultswithin the time period is included. Pathologist [facility] Culture, Blood No growth at 5 days 03/15/2025 5:04 PM EDT [facility] Blood Venous blood specimen / Unknown Venipuncture / Unknown 03/10/2025 4:36 PM EDT 03/10/2025 4:53 PM EDT Solomon Gunderson MD LAB MICROBIOLOGY - GENERAL OR DERABLES Final Result Performing Organization Address City/[facility]/ZIP Co de Phone Number [facility] [address] [place] [address], [place] [phone] * IR Remove Tunneled CVC wo Subq Port or Pump (03/08/2025 3:40 PM EDT) Anatomical Region Laterality Modality N/A Interventional R adiology 03/08/2025 4:17 PM EDT Narrative 03/08/2025 4:19 PM EDT INDICATION: Left-sided tunneled, cuffed catheter removal. Patient requested moderate sedation. Technique: Informed consent was obtained after the risks, benefits and alternatives particularly to procedure were discussed in detail. Any questions were answered in detail. Informed consent was signed by the patient. Moderate intravenous sedation was initiated and maintained for 12 minutes while the patient was independently monitored by the radiology nurse under the supervision of the interventional radiologist. A total of 3 mg of Versed and 75 mcg of fentanyl administered during the procedure. Timeout was performed as per hospital protocol acknowledged by the staff present. Chest wall around the pre-existing catheter was draped and prepped in the usual sterile fashion. 2% buffered lidocaine was used as local anesthetic. Sutures removed. The catheter cuff was removed from the surrounding fibrotic reaction with gentle retraction. The catheter was removed completely and and a dressing was applied. Total patient dose (air kerma): 3 mGy CONCLUSION: Removal of left-sided chest wall tunneled, cuffed catheter. -------- FINAL REPORT -------- Dictated By: Gail Basilio Dictated Date: 03/08/2025 16:17 ET Assigned Physician: Gail Basilio Reviewed and Electronically Signed By: Gail Basilio Signed Date: 03/08/2025 16:19 ET Workstation ID: [id number] Transcribed By: Self Edit Transcribed Date: 03/08/2025 16:17 ET Procedure Note Gail Basilio MD - 03/08/2025 INDICATION: Left-sided tunneled, cuffed catheter removal. Patientrequested moderate sedation. Technique: Informed consent was obtained after the risks, benefits andalternatives particularly to procedure were discussed in detail. Anyquestions were answered in detail. Informed consent was signed by thepatient. Moderate intravenous sedation was initiated and maintained for 12 minuteswhile the patient was independently monitored by the radiology nurse underthe supervision of the interventional radiologist. A total of 3 mg ofVersed and 75 mcg of fentanyl administered during the procedure. Timeout was performed as per hospital protocol acknowledged by the staffpresent. Chest wall around the pre-existing catheter was draped and prepped in theusual sterile fashion. 2% buffered lidocaine was used as local anesthetic.Sutures removed. The catheter cuff was removed from the surroundingfibrotic reaction with gentle retraction. The catheter was removedcompletely and and a dressing was applied. Total patient dose (air kerma): 3 mGy CONCLUSION: Removal of left-sided chest wall tunneled, cuffed catheter. -------- FINAL REPORT -------- Dictated By: Gail Basilio Dictated Date: 03/08/2025 16:17 ET Assigned Physician: Gail Basilio Reviewed and Electronically Signed By: Gail Basilio Signed Date: 03/08/2025 16:19 ET Workstation ID: [id number] Transcribed By: Self Edit Transcribed Date: 03/08/2025 16:17 ET Prince Arguello MD IMG IR PROCEDURES Final Result * SST tube (03/07/2025 11:23 PM EDT) Extra Tube Hold for add-ons. 03/08/2025 1:04 AM EDT [facility] Comment:Auto resulted. Blood Venous blood specimen / Unknown Venipuncture / Unknown 03/07/2025 11:23 PM EDT 03/07/2025 11:28 PM EDT Moise Barraza MD LAB BLOOD ORDERABLES F inal Result [facility] [address] [place] [address], [place] [phone] * Vascular US Duplex Lower Extremity Venous Right (03/05/2025 6:31 AM EDT) Anatomical Region Laterality Modality Vascular, Abdomen Ultrasound 03/05/2025 8:13 AM EDT Impressions 03/05/2025 8:13 AM EDT NO RIGHT LOWER EXTREMITY DEEP VENOUS THROMBOSIS. -------- FINAL REPORT -------- Dictated By: Carlos A Jiménez Dictated Date: 03/05/2025 08:13 ET Assigned Physician: Carlos A Jiménez Reviewed and Electronically Signed By: Carlos A Jiménez Signed Date: 03/05/2025 08:13 ET Workstation ID: [id number] Transcribed By: Self Edit Transcribed Date: 03/05/2025 08:13 ET Narrative 03/05/2025 8:13 AM EDT Ultrasound duplex right lower extremity. INDICATION: pain in extremities TECHNIQUE: 2-D and color Doppler imaging of the right lower extremity venous vasculature with compression and augmentation maneuvers. COMPARISON: No priors available. FINDINGS: There is normal flow, compression, and augmentation from the common femoral through the popliteal vein. No fluid collection. Procedure Note Carlos A Jiménez MD - 03/05/2025 Ultrasound duplex right lower extremity. INDICATION: pain in extremities TECHNIQUE: 2-D and color Doppler imaging of the right lower extremityvenous vasculature with compression and augmentation maneuvers. COMPARISON: No priors available. FINDINGS: There is normal flow, compression, and augmentation from the commonfemoral through the popliteal vein. No fluid collection. IMPRESSION: NO RIGHT LOWER EXTREMITY DEEP VENOUS THROMBOSIS. -------- FINAL REPORT -------- Dictated By: Carlos A Jiménez Dictated Date: 03/05/2025 08:13 ET Assigned Physician: Carlos A Jiménez Reviewed and Electronically Signed By: Carlos A Jiménez Signed Date: 03/05/2025 08:13 ET Workstation ID: [id number] Transcribed By: Self Edit Transcribed Date: 03/05/2025 08:13 ET us Andi Weldon MD CV VASCULAR PROCEDURES Final Result * XR Ankle 3+ Views Right (03/05/2025 5:49 AM EDT) Anatomical Region Laterality Modality Lower Extremities, Ankle Right Radiogr aphic Imaging 03/05/2025 8:12 AM EDT Impressions 03/05/2025 8:13 AM EDT FINDINGS/IMPRESSION: Three views of the ankle demonstrating no acute fracture. Normal alignment. Smooth talar dome. Mild soft tissue swelling. -------- FINAL REPORT -------- Dictated By: Carlos A Jiménez Dictated Date: 03/05/2025 08:12 ET Assigned Physician: Carlos A Jiménez Reviewed and Electronically Signed By: Carlos A Jiménez Signed Date: 03/05/2025 08:13 ET Workstation ID: [id number] Transcribed By: Self Edit Transcribed Date: 03/05/2025 08:12 ET Narrative 03/05/2025 8:13 AM EDT XR ANKLE 3+ VIEWS RIGHT INDICATION: ankle pain TECHNIQUE: XR ANKLE 3+ VIEWS RIGHT COMPARISON: No priors available. Procedure Note Carlos A Jiménez MD - 03/05/2025 XR ANKLE 3+ VIEWS RIGHT INDICATION: ankle pain TECHNIQUE: XR ANKLE 3+ VIEWS RIGHT COMPARISON: No priors available. IMPRESSION: FINDINGS/IMPRESSION: Three views of the ankle demonstrating no acutefracture. Normal alignment. Smooth talar dome. Mild soft tissueswelling. -------- FINAL REPORT -------- Dictated By: Carlos A Jiménez Dictated Date: 03/05/2025 08:12 ET Assigned Physician: Carlos A Jiménez Reviewed and Electronically Signed By: Carlos A Jiménez Signed Date: 03/05/2025 08:13 ET Workstation ID: [id number] Transcribed By: Self Edit Transcribed Date: 03/05/2025 08:12 ET Andi Weldon MD IMG XR PROCEDURES Final Resu lt * APTT (03/05/2025 3:59 AM EDT) [facility] aPTT 33.7 24.1 - 39.3 sec LAB COAGULATION METHOD 03/05/2025 4:44 AM EDT [facility] Blood Venous blood specimen / Unknown Venipuncture / Unknown 03/05/2025 3:59 AM EDT 03/05/2025 4:28 AM EDT Andi Weldon MD LAB BLOOD ORDERABLES Final R esult [facility] [address] [place] [address], [place] [phone] * (ABNORMAL) Protime-INR (03/05/2025 3:59 AM EDT) Only the most recent of2 resultswithin the time period is included. [facility] Protime 14.2(H) 10.6 - 13.9 sec LAB COAGULATION METHOD 03/05/2025 4:44 AM EDT [facility] INR 1.1 LAB COAGULATION METHOD 03/05/2025 4:44 AM EDT [facility] Blood Venous blood specimen / Unknown Venipuncture / Unknown 03/05/2025 3:59 AM EDT 03/05/2025 4:28 AM EDT us Andi Weldon MD LAB BLOOD ORDERABLES Final R esult [facility] [address] [place] [address], [place] [phone] * Respiratory virus panel molecular study (02/22/2025 2:45 PM EDT) [facility] Adenovirus Detection by PCR Not Detected Not Detected LAB MICROBIOLOGY METHOD 02/22/2025 3:53 PM EDT [facility] Influenza A PCR Not Detected Not Detected LAB MICROBIOLOGY METHOD 02/22/2025 3:53 PM EDT [facility] Influenza B PCR Not Detected Not Detected LAB MICROBIOLOGY METHOD 02/22/2025 3:53 PM EDT [facility] Coronavirus 229E Not Detected Not Detected LAB MICROBIOLOGY METHOD 02/22/2025 3:53 PM EDT [facility] Coronavirus HKU1 Not Detected Not Detected LAB MICROBIOLOGY METHOD 02/22/2025 3:53 PM EDT [facility] Coronavirus OC43 Not Detected Not Detected LAB MICROBIOLOGY METHOD 02/22/2025 3:53 PM EDT [facility] Coronavirus NL63 Not Detected Not Detected LAB MICROBIOLOGY METHOD 02/22/2025 3:53 PM EDT [facility] Parainfluenza Virus 1 Not Detected Not Detected LAB MICROBIOLOGY METHOD 02/22/2025 3:53 PM EDT [facility] Parainfluenza Virus 2 Not Detected Not Detected LAB MICROBIOLOGY METHOD 02/22/2025 3:53 PM EDT [facility] Parainfluenza Virus 3 Not Detected Not Detected LAB MICROBIOLOGY METHOD 02/22/2025 3:53 PM EDT [facility] Parainfluenza Virus 4 Not Detected Not Detected LAB MICROBIOLOGY METHOD 02/22/2025 3:53 PM EDT [facility] RSV PCR Not Detected Not Detected LAB MICROBIOLOGY METHOD 02/22/2025 3:53 PM EDT [facility] Human Metapneumovirus A and B Not Detected Not Detected LAB MICROBIOLOGY METHOD 02/22/2025 3:53 PM EDT [facility] Rhinovirus/Entero virus Not Detected Not Detected LAB MICROBIOLOGY METHOD 02/22/2025 3:53 PM EDT [facility] Bordetella pertussis Not Detected Not Detected LAB MICROBIOLOGY METHOD 02/22/2025 3:53 PM EDT [facility] Bordetella parapertussis Not Detected Not Detected LAB MICROBIOLOGY METHOD 02/22/2025 3:53 PM EDT [facility] Mycoplasma pneumo by PCR Not Detected Not Detected LAB MICROBIOLOGY METHOD 02/22/2025 3:53 PM EDT [facility] Chlamydia pneumoniae Not Detected Not Detected LAB MICROBIOLOGY METHOD 02/22/2025 3:53 PM EDT [facility] SARS COV-2 Not Detected Not Detected LAB MICROBIOLOGY METHOD 02/22/2025 3:53 PM EDT [facility] Swab Nasopharyngeal structure / Unknown Non-blood Collection / Unknown 02/22/2025 2:45 PM EDT 02/22/2025 2:57 PM EDT [facility] - 02/22/2025 3:53 PM EDT Testing was performed using the [employer] Respiratory Pathogen PCR Assay. All results must be correlated with the clinical findings. Results should not be used as the sole basis for diagnosis. False Negative results may occur from the presence of sequence variants in the region targeted by the assay or the presence of inhibitors. Results may be affected by concurrent antiviral/antimicrobial therapy or levels of organisms that are below the limit of detection. us Steve Espinoza MD LAB MICROBIOLOGY - GENERAL OR DERABLES Final Result Performing Organization Address [facility] Co de Phone Number [facility] [address] [place] [address], * (ABNORMAL) Hemoglobin and hematocrit (02/22/2025 10:07 AM EDT) Only the most recent of2 resultswithin the time period is included. [facility] Hemoglobin 7.0(L) 11.5 - 16.0 g/dL LAB HEMETOLOGY METHOD 02/22/2025 11:24 AM EDT [facility] Hematocrit 22.1(L) 35.0 - 47.0 % LAB HEMETOLOGY METHOD 02/22/2025 11:24 AM EDT [facility] Blood Venous blood specimen / Unknown Venipuncture / Unknown 02/22/2025 10:07 AM EDT 02/22/2025 11:19 AM EDT Steve Espinoza MD LAB BLOOD ORDERABLES Final Re sult Performing Organization Address [facility] de Phone Number [facility] [address] [place] [address], * Transfuse RBC, Leukoreduced (02/20/2025 5:36 PM EDT) Krishna Burgos MD BLOOD TRANSFUSION ORDERABLES Final Result * Prepare RBC: 1 Units, Leukoreduced (02/20/2025 12:52 PM EDT) [facility] Product Code [id number] 02/20/2025 2:44 PM EDT [facility] Unit Number [id number] 02/21/20 2:44 PM EDT [facility] Crossmatch Compatible 02/20/2025 2:20 PM EDT [facility] Dispense Status Transfused 02/20/2025 2:44 PM EDT [facility] Unit ABO Rh OPOS 02/20/2025 2:44 PM EDT [facility] Unit Expiration Date Time 02/20/2025 2:44 PM EDT [facility] Unit Blood Type 5100 02/20/2025 2:44 PM EDT [facility] Blood Venous blood specimen / Unknown 02/20/2025 12:52 PM EDT 02/20/2025 1:30 PM EDT us Krishna Brugos MD BLOOD BANK PRODUCT ORDERABLE S Final Result [facility] [address] [place] [address], * IR Insert Tunneled CVC wo Port or Pump More 5yrs Right (02/16/2025 5:05 PM EDT) Anatomical Region Laterality Modality Right Interventional R adiology 02/16/2025 5:24 PM EDT Impressions 02/16/2025 5:26 PM EDT Left internal jugular vein HD catheter placement. 23 cm tip to cuff catheter utilized. Catheter is available for immediate use. -------- FINAL REPORT -------- Dictated By: Doc Page Dictated Date: 02/16/2025 17:24 ET Assigned Physician: Doc Page Reviewed and Electronically Signed By: Doc Page Signed Date: 02/16/2025 17:26 ET Workstation ID: [id number] Transcribed By: Self Edit Transcribed Date: 02/16/2025 17:24 ET Narrative 02/16/2025 5:26 PM EDT HD catheter placement Clinical information: Kidney injury. Chronic kidney injury. Painful fistula despite revision Interventionalists: Dr. Doc Page Acuity: Chronic Skin dose: 1 mGy PROCEDURE: Informed consent obtained prior to the procedure. Patient was brought to angiography suite placed in a supine position. Ultrasound imaging demonstrates venous patency. The patient's left neck were assessed and subsequently prepped and draped in the usual and sterile fashion. 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 Maximum sterile barrier technique was used. A timeout was performed. 2% lidocaine was used for skin anesthesia. Under continuous ultrasound guidance, a micropuncture needle was advanced into the vein. There was dark venous return, a mandrel wire was advanced centrally. A 3-5 sheath dilator was then advanced over the wire. The inner dilator and wire were removed and an 0.035 wire was advanced centrally. Attention was then turned to the tunnel. Additional LIDOCAINE with EPINEPHRINE was injected in the superficial soft tissues. Small stab incision was made. A tunneler device was utilized and the catheter was pulled through to the access site. Serial dilatation of the access site was then performed and a peel-away sheath was positioned. Subsequently, the catheter was advanced through the peel-away sheath which was removed. Imaging demonstrates appropriate positioning of the catheter. Both lumens were assessed demonstrating excellent pull of blood and flush well. The catheter was then flushed with the appropriate volume of saline (HEPARIN not utilized due to HEPARIN ALLERGY). The puncture site was closed with 3-0 Vicryl and Dermabond. The catheter was then secured to the skin with 2-0 Ethilon and a sterile bandage was applied. The patient tolerated well with no immediate complications. There was is less than 2 mL of blood loss. Procedure Note Doc Page MD - 02/16/2025 HD catheter placement Clinical information: Kidney injury. Chronic kidney injury. Painfulfistula despite revision Interventionalists: Dr. Doc Page Acuity: Chronic Skin dose: 1 mGy PROCEDURE: Informed consent obtained prior to the procedure. Patient wasbrought to angiography suite placed in a supine position. Ultrasoundimaging demonstrates venous patency. The patient's left neck wereassessed and subsequently prepped and draped in the usual and sterilefashion. 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 Maximum sterile barrier technique was used. A timeout was performed. 2%lidocaine was used for skin anesthesia. Under continuous ultrasound guidance, a micropuncture needle was advancedinto the vein. There was dark venous return, a mandrel wire was advancedcentrally. A 3-5 sheath dilator was then advanced over the wire. Theinner dilator and wire were removed and an 0.035 wire was advancedcentrally. Attention was then turned to the tunnel. Additional LIDOCAINE withEPINEPHRINE was injected in the superficial soft tissues. Small stabincision was made. A tunneler device was utilized and the catheter waspulled through to the access site. Serial dilatation of the access sitewas then performed and a peel-away sheath was positioned. Subsequently,the catheter was advanced through the peel-away sheath which was removed.Imaging demonstrates appropriate positioning of the catheter. Both lumens were assessed demonstrating excellent pull of blood and flushwell. The catheter was then flushed with the appropriate volume of saline(HEPARIN not utilized due to HEPARIN ALLERGY). The puncture site wasclosed with 3-0 Vicryl and Dermabond. The catheter was then secured tothe skin with 2-0 Ethilon and a sterile bandage was applied. The patient tolerated well with no immediate complications. There was is less than 2 mL of blood loss. IMPRESSION: Left internal jugular vein HD catheter placement. 23 cm tip to cuffcatheter utilized. Catheter is available for immediate use. -------- FINAL REPORT -------- Dictated By: Doc Page Dictated Date: 02/16/2025 17:24 ET Assigned Physician: Doc Page Reviewed and Electronically Signed By: Doc Page Signed Date: 02/16/2025 17:26 ET Workstation ID: [id number] Transcribed By: Self Edit Transcribed Date: 02/16/2025 17:24 ET us Hao Atkinson MD IMG IR PROCEDURES Final Result * Vascular US duplex upper extremity venous right (02/14/2025 4:19 PM EDT) Anatomical Region Laterality Modality Vascular, Abdomen Ultrasound 02/14/2025 4:40 PM EDT Impressions 02/14/2025 4:45 PM EDT Impression: 1. Nonocclusive deep vein thrombosis involving the lower third of the brachial vein, age indeterminate, suspect chronic. 2. Superficial phlebitis involving the basilic vein. 3. Complex fluid collection within the superficial aspect of the muscle compartment, suspicious for hematoma, possibly related to muscle tear. Deborah HOGAN ([id number]) -------- FINAL REPORT -------- Dictated By: Mari Hebert Dictated Date: 02/14/2025 16:40 ET Assigned Physician: Mari Hebert Reviewed and Electronically Signed By: Mari Hebert Signed Date: 02/14/2025 16:45 ET Workstation ID: [id number] Transcribed By: Self Edit Transcribed Date: 02/14/2025 16:40 ET Narrative 02/14/2025 4:45 PM EDT History: Right upper extremity pain and swelling. History of deep vein thrombosis. Comparison: No comparison imaging at this institution. Findings: Duplex and color Doppler imaging of the deep veins of the right upper extremity was performed. The right internal jugular and subclavian veins are patent and exhibit normal spontaneous and phasic venous flow with Doppler. The right axillary vein is also patent, with normal blood flow by Doppler analysis. The brachial vein, in the lower third of the arm, is incompletely compressible, with echogenic linear structures within the lumen of the vessel, consistent with deep vein thrombosis, possibly chronic in nature. There is flow remaining within the vessel by Doppler analysis. The basilic vein is distended and noncompressible, consistent with superficial phlebitis. There is minimal residual flow within the vessel by Doppler analysis. The cephalic vein is patent and compresses completely. There is a complex fluid collection within the arm, within the superficial portion of the muscular compartment, measuring 13 cm in length by 0.9 cm in depth by 3.7 cm in width, suspicious for a hematoma, possibly muscle tear. Procedure Note Mari Hebert MD - 02/14/2025 History: Right upper extremity pain and swelling. History of deep veinthrombosis. Comparison: No comparison imaging at this institution. Findings: Duplex and color Doppler imaging of the deep veins of the right upperextremity was performed. The right internal jugular and subclavian veins are patent and exhibitnormal spontaneous and phasic venous flow with Doppler. The right axillaryvein is also patent, with normal blood flow by Doppler analysis. The brachial vein, in the lower third of the arm, is incompletelycompressible, with echogenic linear structures within the lumen of thevessel, consistent with deep vein thrombosis, possibly chronic in nature.There is flow remaining within the vessel by Doppler analysis. The basilic vein is distended and noncompressible, consistent withsuperficial phlebitis. There is minimal residual flow within the vessel byDoppler analysis. The cephalic vein is patent and compresses completely. There is a complex fluid collection within the arm, within the superficialportion of the muscular compartment, measuring 13 cm in length by 0.9 cmin depth by 3.7 cm in width, suspicious for a hematoma, possibly muscletear. IMPRESSION: Impression: 1. Nonocclusive deep vein thrombosis involving the lower third of thebrachial vein, age indeterminate, suspect chronic. 2. Superficial phlebitis involving the basilic vein. 3. Complex fluid collection within the superficial aspect of the musclecompartment, suspicious for hematoma, possibly related to muscle tear. Telerad SAMIRA ([id number]) -------- FINAL REPORT -------- Dictated By: Mari Hebert Dictated Date: 02/14/2025 16:40 ET Assigned Physician: Mari Hebert Reviewed and Electronically Signed By: Mari Hebert Signed Date: 02/14/2025 16:45 ET Workstation ID: [id number] Transcribed By: Self Edit Transcribed Date: 02/14/2025 16:40 ET us Ashlee Nascimento NP CV VASCULAR PROCEDURES Final Res ult * Hepatitis B surface antigen with reflex to confirmation (02/12/2025 5:20 PM EDT) Hepatitis B Surface Ag Negative Negative LAB CHEMISTRY METHOD 02/12/2025 8:58 PM EDT [facility] Blood Venous blood specimen / Unknown Venipuncture / Unknown 02/12/2025 5:20 PM EDT 02/12/2025 5:24 PM EDT Narrative [facility] - 02/12/2025 8:58 PM EDT Over the counter supplements containing high doses of biotin may interfere with this assay. If interference is suspected, patients shoud be retested after refraining from biotin supplements for 72 hours. Sam Leonard MD LAB BLOOD ORDERABLES Final Result Performing Organization Address [facility]/ZIP Co de Phone Number [facility] [address] [place] [address], [place] [phone] * (ABNORMAL) Iron and TIBC (02/12/2025 5:20 PM EDT) Pathologist [facility] Iron 39(L) 40 - 150 mcg/dL LAB CHEMISTRY METHOD 02/12/2025 6:39 PM EDT [facility] TIBC 169(L) 250 - 450 mcg/dL LAB CHEMISTRY METHOD 02/12/2025 6:39 PM EDT [facility] Iron Saturation 23 15 - 50 % LAB CHEMISTRY METHOD 02/12/2025 6:39 PM EDT [facility] Blood Venous blood specimen / Unknown Venipuncture / Unknown 02/12/2025 5:20 PM EDT 02/12/2025 5:24 PM EDT Solomon Gunderson MD LAB BLOOD ORDERABLES Final Re sult Performing Organization Address [facility] de Phone Number [facility] [address] [place] [address], [place] [phone] * (ABNORMAL) Hepatitis B surface antibody quantitative (02/12/2025 5:20 PM EDT) Pathologist [facility] Hepatitis B Surface Ab Positive (A) Negative LAB CHEMISTRY METHOD 02/12/2025 8:46 PM EDT [facility] Hepatitis B Surface Ab Quantitative 51.6 mIU/mL LAB CHEMISTRY METHOD 02/12/2025 8:46 PM EDT [facility] Blood Venous blood specimen / Unknown Venipuncture / Unknown 02/12/2025 5:20 PM EDT 02/12/2025 5:24 PM EDT Narrative [facility] - 02/12/2025 8:46 PM EDT >=10 mIU/mL is considered to be consistent with immunity. us Sam Leonard MD LAB BLOOD ORDERABLES Final Result Performing Organization Address [facility]/ZIP Co de Phone Number [facility] [address] [place] [address], [place] [phone] * Haptoglobin (02/12/2025 5:20 PM EDT) [facility] Haptoglobin 107 16 - 200 mg/dL LAB CHEMISTRY METHOD 02/12/2025 6:39 PM EDT [facility] Blood Venous blood specimen / Unknown Venipuncture / Unknown 02/12/2025 5:20 PM EDT 02/12/2025 5:24 PM EDT us Solomon Gunderson MD LAB BLOOD ORDERABLES Final Re sult Performing Organization Address City/[facility]/ZIP Co de Phone Number [facility] [address] [place] [address], [place] [phone] * Folate (02/12/2025 5:20 PM EDT) [facility] Folate 13.8 2.8 - 17.0 ng/ml LAB CHEMISTRY METHOD 02/12/2025 6:52 PM EDT [facility] Blood Venous blood specimen / Unknown Venipuncture / Unknown 02/12/2025 5:20 PM EDT 02/12/2025 5:24 PM EDT us Solomon Gunderson MD LAB BLOOD ORDERABLES Final Re sult [facility] [address] [place] [address], [place] [phone] * (ABNORMAL) Ferritin (02/12/2025 5:20 PM EDT) [facility] Ferritin 1,851(H) 8 - 252 ng/mL LAB CHEMISTRY METHOD 02/12/2025 7:16 PM EDT [facility] Blood Venous blood specimen / Unknown Venipuncture / Unknown 02/12/2025 5:20 PM EDT 02/12/2025 5:24 PM EDT Solomon Gunderson MD LAB BLOOD ORDERABLES Final Re sult [facility] [address] [place] [address], [place] [phone] * Vitamin B12 (02/12/2025 5:20 PM EDT) [facility] Vitamin B-12 709 250 - 900 pcg/mL LAB CHEMISTRY METHOD 02/12/2025 7:16 PM EDT [facility] Blood Venous blood specimen / Unknown Venipuncture / Unknown 02/12/2025 5:20 PM EDT 02/12/2025 5:24 PM EDT Solomon Gunderson MD LAB BLOOD ORDERABLES Final Re sult Performing Organization Address City/[facility]/ZIP Co de Phone Number [facility] [address] [place] [address], [place] [phone] * (ABNORMAL) Reticulocyte count (02/12/2025 3:28 PM EDT) [facility] Retic Ct Abs 0.030 0.030 - 0.090 M/mcL LAB HEMETOLOGY METHOD 02/12/2025 8:16 PM EDT [facility] Retic Ct Pct 1.2 0.7 - 1.7 % LAB HEMETOLOGY METHOD 02/12/2025 8:16 PM EDT [facility] Immature Retic Fract 22.1(H) 2.3 - 15.9 % LAB HEMETOLOGY METHOD 02/12/2025 8:16 PM EDT [facility] Reticulocyte Hemoglobin 30.9 >29.0 pcg LAB HEMETOLOGY METHOD 02/12/2025 8:16 PM EDT [facility] Blood Venous blood specimen / Unknown Venipuncture / Unknown 02/12/2025 3:28 PM EDT 02/12/2025 3:54 PM EDT us Solomon Gunderson MD LAB BLOOD ORDERABLES Final Re sult [facility] [address] [place] [address], * Hepatic Function Panel (02/12/2025 3:28 PM EDT) Total Protein 7.0 6.0 - 8.0 g/dL LAB CHEMISTRY METHOD 02/12/2025 4:30 PM EDT [facility] Albumin 3.4 3.2 - 5.0 g/dL LAB CHEMISTRY METHOD 02/12/2025 4:30 PM EDT [facility] Total Bilirubin 0.4 0.0 - 1.4 mg/dL LAB CHEMISTRY METHOD 02/12/2025 4:30 PM EDT [facility] Bilirubin, Direct 0.2 0.0 - 0.3 mg/dL LAB CHEMISTRY METHOD 02/12/2025 4:30 PM EDT [facility] Bilirubin, Indirect 0.2 0.0 - 1.1 mg/dL LAB CHEMISTRY METHOD 02/12/2025 4:30 PM T [facility] ALT (SGPT) 21 10 - 60 unit/L LAB CHEMISTRY METHOD 02/12/2025 4:30 PM EDT [facility] AST (SGOT) 23 10 - 42 unit/L LAB CHEMISTRY METHOD 02/12/2025 4:30 PM EDT [facility] Alkaline Phosphatase 106 42 - 121 unit/L LAB CHEMISTRY METHOD 02/12/2025 4:30 PM EDT [facility]) [facility] Blood Venous blood specimen / Unknown Venipuncture / Unknown 02/12/2025 3:28 PM EDT 02/12/2025 3:54 PM EDT us Tiesha Shelby DO LAB BLOOD ORDERABLES Final Re sult [facility] ([facility]) [facility] [address] [place] [address], [place] [phone] from Last 3 Months Insurance MEDICAID - [place] MEDICARE Advance Directives * Full Code - Default (Latest Code Status on File) Date Activated Date Inactivated Comments 04/06/2025 6:04 AM 04/08/2025 1:06 PM This is orde r is used when code status has not been discussed with the patient, or code status is otherwise unknown/unconfirmed To update the patient's code status, place a code status order. Do not modify or discontinue any currently active code status orders. * Full Code - Default Date Activated Date Inactivated Comments 04/02/2025 5:02 AM 04/04/2025 6:43 PM This is orde r is used when code status has not been discussed with the patient, or code status is otherwise unknown/unconfirmed To update the patient's code status, place a code status order. Do not modify or discontinue any currently active code status orders. * Full Code - Default Date Activated Date Inactivated Comments 03/05/2025 8:27 AM 03/12/2025 11:46 AM This is or brunilda is used when code status has not been discussed with the patient, or code status is otherwise unknown/unconfirmed To update the patient's code status, place a code status order. Do not modify or discontinue any currently active code status orders. * Full Code - Default Date Activated Date Inactivated Comments 03/01/2025 10:21 PM 03/02/2025 3:36 PM This is ord er is used when code status has not been discussed with the patient, or code status is otherwise unknown/unconfirmed To update the patient's code status, place a code status order. Do not modify or discontinue any currently active code status orders. * Full Code - Default Date Activated Date Inactivated Comments 02/12/2025 6:23 PM 02/22/2025 9:16 PM This is orde r is used when code status has not been discussed with the patient, or code status is otherwise unknown/unconfirmed To update the patient's code status, place a code status order. Do not modify or discontinue any currently active code status orders. Care Teams [employer] Presser Relationship Specialty [place] [address] [place] [phone] PCP - General Internal Medicine 04/02/25
--- OUTSIDE RECORDS SUMMARY | 2025-04-21 21:08 | XMS_ITS | Encounter Summary ---
Author Organization [facility], Address [address] [place] [address] Phone Care Team Providers Care Chain Testing Machine Operator Name Role Phone Antonio Sellers MD Primary Care Provider Encounter Details Date Type Department Care Team (Late st Contact Info) Description 04/19/2025 Orders Only [facility] [address] [place] [phone] Malick Arechiga DO [address] [place] [phone] Social History Tobacco Use Types Packs/Day Years [...] KINETICS Routine 04/19/2025 POST CHEMISTRY Routine 04/19/2025 HEMATOLOGY Routine 04/19/2025 CHEMISTRY Routine 04/19/2025 documented in this encounter Results * (ABNORMAL) HD KINETICS (04/19/2025) % Urea Reduction 63(L) 65 - 80 % [facility] 04/19/2025 04/21/2025 8:2 7 AM EST Narrative Resulting Agency Comment Specimen source: Plasma Malick Arechiga LAB BLOOD ORDERABLES Final Resu lt Performing Organization Address [facility] de Phone Number [facility] See order comments or contact performing lab Unknown, [place] * (ABNORMAL) POST CHEMISTRY (04/19/2025) BUN Post Dialysis 27(H) 6 - 19 mg/dL [facility] 04/19/2025 04/21/2025 8:2 7 AM EST Narrative [facility] - 04/21/2025 Unless otherwise specified, test(s) performed at: [facility] [place] [address] ARCHERY EQUIPMENT REPAIRER: Magdy Howard M.D. For any questions, please call customer service at FREQUENCY:OTHER Resulting Agency Comment Specimen source: Plasma Malick Arechiga LAB BLOOD ORDERABLES Final [facility] Performing Organization Address [facility] de Phone Number [facility] See order comments or contact performing lab Unknown, [place] * (ABNORMAL) [facility] (04/19/2025) BUN 73(H) 6 - 19 mg/dL [facility] Potassium 4.7 3.5 - 5.1 mEq/L [facility] 04/19/2025 04/21/2025 8:2 7 AM EST Narrative [facility] - 04/21/2025 Unless otherwise specified, test(s) performed at: [facility], [address] [place] [id number] ARCHERY EQUIPMENT REPAIRER: Magdy Howard M.D. For any questions, please call customer service at FREQUENCY:OTHER Resulting Agency Comment Specimen source: Serum Malick Arechiga [email or web address] BLOOD ORDERABLES Final Resu lt [facility] See order comments or contact performing lab Unknown, [place] * (ABNORMAL) HEMATOLOGY (04/19/2025) Hemoglobin 8.8(L) 12.0 - 16.0 g/dL [facility] Hemoglobin x 3 26.4(L) 36.0 - 48.0 % [facility] 04/19/2025 04/21/2025 8:0 7 AM EST Narrative [facility] - 04/21/2025 Unless otherwise specified, test(s) performed at: [facility], [address] [place] [address] ARCHERY EQUIPMENT REPAIRER: Magdy Howard M.D. For any questions, please call customer service at FREQUENCY:OTHER Resulting Agency Comment Specimen source: Blood Malick Arechiga [email or web address] LAB BLOOD ORDERABLES Final Resu Performing Organization Address [facility]/ZIP Co de Phone Number [facility] See order comments or contact performing lab Unknown, [place] documented in this encounter Visit Diagnoses Not on filedocumented in this encounter Care Teams Chain Testing Machine Operator Relationship Specialty Start Date End Date Antonio Sellers MD [address] [place], [place] PCP - General Internal Medicine 04/04/25 documented as of this encounter
--- OUTSIDE RECORDS SUMMARY | 2025-04-21 21:08 | XMS_ITS | Encounter Summary ---
Author Organization [facility] [place] [address] Care Team Providers Care Milking System Installer Name Role Phone Antonio Sellers MD Primary Care Provider [phone] Encounter Details Date Type Department Care Team (Late st Contact Info) Description 12/11/2024 Lab Requisition [facility] [address] [facility] [place] [address] Malick Arechiga MD [address] [place] [address] Other disorders of electrolyte and fluid balance, not elsewhere classified Social History Tobacco Use Types Packs/Day Years Used Date Smoking Tobacco: Never Alcohol Use Standard Drinks/Week Comments Not Asked 0 (1 standard drink = 0.6 oz pur e alcohol) Comments Unknown Sex and Gender Information Value Date Recorded Sex Assigned at Female 04/02/2025 2:18 AM EDT Legal Sex Female 10:47 AM EST Gender Identity Female 04/02/2025 2:18 AM EDT Sexual Orientation Choose not to disclose 2024 8:46 AM EST documented as of this encounter Plan of Treatment Not on file documented as of this encounter Procedures Procedure Name Priority Date/Time Associated Diagnosis Comments POTASSIUM STAT 12/11/2024 12:00 PM EDT Other disorders of electrolyte and fluid balance, not elsewhere classified documented in this encounter Results * Potassium (12/11/2024 12:00 PM EDT) Potassium 5.2 3.5 - 5.5 mmol/L LAB CHEMISTRY METHOD 12/11/2024 2:08 PM EDT [facility] Blood Venous blood specimen / Unknown 12/11/2024 12:00 PM EDT 12/11/2024 2:00 PM EDT us Malick Arechiga MD LAB BLOOD ORDERABLES Final Re sult [facility] [address] [place] [address], documented in this encounter Visit Diagnoses Diagnosis Other disorders of electrolyte and fluid balance, not elsewhere classified documented in this encounter Additional Health Concerns Infection Onset Date Last Indicated Resolved Time Respiratory Rule-Out 02/22/2025 02/22/2025 025 3:53 PM EDT COVID-19 Rule-Out 02/22/2025 02/22/2025 02/22/2025 3:53 PM EDT documented as of this encounter Care Teams Milking System Installer Relationship Specialty Start Date End Date Antonio Sellers MD [address] [place] [phone] PCP - General Internal Medicine 04/02/25 documented as of this encounter
--- OUTSIDE RECORDS SUMMARY | 2025-04-21 21:08 | XMS_ITS | Encounter Summary ---
Author Organization [facility] Address [address] [place] [address] Care Team Providers Care Canvas Marker Name Role Phone Kassie Reyna MD Primary Care Provider [phone] Dialysis, [facility] Unavailable [phone] Lana Quintana MD Unavailable Gómez Whitley MD Unavailable [phone] Encounter Details Date Type Department Care Team (Late st Contact Info) Description 09/05/2022 Scanned Document [facility]icians Department of Nephrology and Access Surgery [place] [address] [place] [phone] Dialysis, [facility] [address] [phone] Social History Tobacco Use Types Packs/Day Years [...] on filedocumented in this encounter Care Teams Canvas Marker Relationship Specialty Start Date End Date Kassie Reyna MD [address] [place] [address] PCP - General Internal Medicine 12/24/21 Dialysis, [facility] [address] [place] [address] Dialysis Unit 09/05/22 Lana Quintana MD [address] [place] [address] Physician Nephrology 09/11/22 Gómez Whitley MD [address] [place] [address] Surgery, General 10/25/22 documented as of this encounter
[2025-04-21 21:48] VITALS: BP 185/99; PULSE 68; RESP 18; O2SAT 98
--- NOTE | 2025-04-21 22:24 | PHA.MEDREC ---
Pharmacy Consult ? Medication Reconciliation Pharmacy has completed the medication reconciliation. Spoke with patient at bedside, she was tired but able to tell me her meds based on pharmacy claims. States she doesn't take albuterol any more but has nebulizers for budesonide and formoterol. She says she takes nifedipine 30mg TID rather than 30mg in the morning and 60mg at bedtime. He son should be able to bring in the Ferric citrate for her and she emphasized she cannot had regular benadryll due to a red dye allergy.
[2025-04-21 23:57] LABS: Bacterial Vaginosis PCR NEGATIVE (Negative); Candida Group PCR DETECTED (Not Detect); Candida glab krusei PCR NOT DETECTED (Not Detect); Trichomonas vaginalis PCR NOT DETECTED (Not Detect)
[2025-04-22] VITALS (8 sets, daily range): BP systolic 142–218; BP diastolic 68–101; PULSE 68–81; RESP 16–20; TEMP 36–37.1; O2SAT 93–100; BMI 26.3
--- NOTE | 2025-04-22 01:44 | PM.IMHP ---
History of Present Illness Date of Service: 04/22/25 Chief Complaint: body aches 39-year-old female with a past medical history of ESRD on hemodialysis Friday, diastolic CHF, myofascial pain syndrome, pulmonary hypertension, anemia, chronic low back pain, seizure disorder, anemia of chronic disease, hypertension, chronic respiratory failure-on home oxygen; GERD; presented to the hospital today with a chief complaint of body aches Patient reports that she always has body aches; more pain in her legs; Lately she felt short of breath and is having chest pain attributes herself probably having anemia. Reports he gets erythropoietin injections periodically. Patient reports she missed her hemodialysis session the day before coming to the hospital Patient denies any nausea or vomiting. Reports whole body itching. Mentions yesterday she felt dysuria, itching per vagina; and noticed discharge from the vaginal Denies any fevers. Denies any nausea or vomiting. Patient reports the chest pain has been going on for about 2 weeks. Reports this happens when she has anemia. Denies any nausea vomiting or diarrhea. Denies any chest pain at the time of my interview. Patient reports that she still makes urine but not as much. Reports that she takes torsemide at home. ER course: Per ER team, patient does not appear to be in volume overload; EKG nonischemic; creatinine elevated; potassium 6.0. Tried to give insulin plus dextrose but patient refused even after multiple reinforcements. Patient took Lokelma. Nephrology was notified. Patient was given Dilaudid for her chronic pain syndrome Vaginal swab showed Kimberly. [facility] Medical History (Updated 04/21/25 @ 21:[address] [facility] Unspecified asthma Myofascial pain Diastolic CHF Tricuspid regurgitation Recurrent chest pain Pericardial effusion Pulmonary hypertension Iron deficiency anemia ESRD on hemodialysis Chest pain Chronic hypoxic respiratory failure Seizure disorder ESRD (end stage renal disease) on dialysis Family History (Updated 04/18/25 @ 10:34 by Kassie Reyna MD) Other Diabetes mellitus Primary hypertension Social History Household Members: Family and Children Housing: House Do you presently have visiting nurse or other home services: No Patient Tobacco Use Status: Never used Tobacco e-Cigarette/Vaping Use: Never Used Advance Directives: No Advance Directives Information Provided: No Do you have a plan to hurt others: No Plan service: No Current occupational status: unemployed Meds Allergies Allergy/AdvReac Type Severity Reaction Status Date / Time ANNA Inhibitors Allergy Unknown Verified 04/21/25 18:08 adhesive tape Allergy Unknown Verified 04/21/25 18:08 amlodipine Allergy Unknown Verified 04/21/25 18:08 angiotensin II acetate, human Allergy Itching Verified 04/21/25 18:08 Beta-Blockers Allergy Itching Verified 04/21/25 18:08 (Beta-Adrenergic Bloc cinacalcet (From Sensipar) Allergy Unknown Verified 04/21/25 18:08 clonidine Allergy Anaphylaxis Verified 04/21/25 18:08 doxazosin Allergy Anaphylaxis Verified 04/21/25 18:08 epoetin michael-epbx (From Allergy Unknown Verified 04/21/25 18:08 Retacrit) epoetin beta Allergy Unknown Verified 04/21/25 18:08 furosemide Allergy Unknown Verified 04/21/25 18:08 gabapentin Allergy Anaphylaxis Verified 04/21/25 18:08 heparin Allergy Unknown Verified 04/21/25 18:08 hydralazine Allergy Anaphylaxis Verified 04/21/25 18:08 hydroxyzine Allergy Unknown Verified 04/21/25 18:08 ibuprofen (From Motrin) Allergy Unknown Verified 04/21/25 18:08 isosorbide Allergy Unknown Verified 04/21/25 18:08 labetalol Allergy Eye Verified 04/21/25 18:08 Swelling latex Allergy Itching Verified 04/21/25 18:08 levofloxacin Allergy Itching Verified 04/21/25 18:08 lisinopril Allergy Itching Verified 04/21/25 18:08 losartan Allergy Unknown Verified 04/21/25 18:08 methocarbamol Allergy Unknown Verified 04/21/25 18:08 metoprolol Allergy Unknown Verified 04/21/25 18:08 Penicillins Allergy Hives Verified 04/21/25 18:08 prednisone Allergy Unknown Verified 04/21/25 18:08 spironolactone Allergy Itching Verified 04/21/25 18:08 tramadol Allergy Unknown Verified 04/21/25 18:08 valsartan Allergy Facial Verified 04/21/25 18:08 Swelling diphenhydramine (From AdvReac Unknown Verified 04/21/25 18:08 Benadryl) dye in bendaryl pills AdvReac Itching Uncoded 02/12/25 05:59 Active Medications: Current Medications Acetaminophen (Acetaminophen 325 Mg Tablet) 650 mg PO Q6H PRN PRN Reason: Pain, Mild 1-3,fever,headache Calcium Carbonate (Calcium Carbonate 750 Mg Tab.Chew) 750 mg PO Q4H PRN PRN Reason: Heartburn Heparin Sodium (Porcine) (Heparin Sodium,Porcine 5,000 Unit/Ml Vial) 5,000 unit SUBCUT Q8H MARGY Hydromorphone HCl (Hydromorphone Hcl 1 Mg/Ml Syringe) 0.5 mg IVPUSH Q4H PRN; Protocol PRN Reason: Breakthrough Pain Magnesium Hydroxide (Milk Of Magnesia 30 Ml Oral.Susp) 30 ml PO DAILY PRN PRN Reason: Constipation Melatonin (Melatonin 3 Mg Tablet) 6 mg PO BEDTIME PRN PRN Reason: Insomnia Sodium Chloride (0.9 % Sodium Chloride Flush 3 Ml Syringe) 3 ml IVFLUSH QSHIFT MARGY Home Medications ?Medication ?Instructions ?Recorded ?Confirmed ?Last Taken ?Type cholecalciferol (vitamin D3) 50 100 mcg PO DAILY 12/30/24 04/21/25 04/21/25 09:00 History mcg (2,000 unit) tablet (Vitamin D3) pantoprazole 40 mg tablet,delayed 40 mg PO DAILY@0630 12/30/24 04/21/25 04/21/25 09:00 History release nifedipine 30 mg tablet,extended 30 mg PO TID 01/06/25 04/21/25 04/21/25 09:00 History release 24 hr sildenafil (pulm.hypertension) 20 20 mg PO TID 01/06/25 04/21/25 04/21/25 09:00 History mg tablet albuterol sulfate 90 mcg/actuation 2 puff inhalation Q6H PRN 02/08/25 04/21/25 04/21/25 09:00 History aerosol inhaler Shortness Of Breath Or Wheezing ferric citrate 210 mg iron tablet 420 mg PO TIDWM 04/18/25 04/21/25 04/21/25 09:00 History (Auryxia) formoterol fumarate 20 mcg/2 mL 2 ml inhalation BID PRN Wheezing 04/18/25 04/21/25 04/21/25 09:00 History solution for nebulization minoxidil 2.5 mg tablet 7.5 mg PO DAILY 04/18/25 04/21/25 04/21/25 09:00 History Physical Exam Vital Signs and Narrative: Vital Signs: Last Vital Signs Temp 98.3 F 04/21/25 20:21 Pulse 68 04/22/25 01:25 Resp 16 04/22/25 01:25 BP 179/100 H 04/22/25 01:25 Pulse Ox 93 04/22/25 01:25 O2 Del Method Room Air 04/22/25 01:25 BMI result Body Mass Index 23.4 Gen: Appears be in no acute distress HEENT: NCAT, Moist mucosa. Pulmonary: Vesicular breath sounds, fair air entry CVS: Normal S1-S2 Abdomen: BS+, Soft, Nontender Extremities: Warm well perfused Neuro: Alert and awake. Results Labs 04/21/25 18:25 04/22/25 02:15 Labs: Laboratory Results - last 24 hr 04/21/25 04/21/25 18:25 21:40 MCV 97.7 MCH 30.5 MCHC 31.2 RDW 16.2 H Plt Count 129 L MPV 10.4 Immature Gran % (Auto) 0.3 Neut % (Auto) 77.2 H Lymph % (Auto) 10.2 L [place] % (Auto) 6.9 Eos % (Auto) 4.5 H Baso % (Auto) 0.9 Lymph # (Auto) 0.6 L [place] # (Auto) 0.4 Eos # (Auto) 0.3 Baso # (Auto) 0.1 Abs Immat Gran (auto) 0.02 Absolute Neuts (auto) 4.5 Absolute Nucleated RBC 0.000 Nucleated RBC % (auto) 0.0 PT 15.3 H INR 1.3 H APTT 33.4 Anion Gap 23 H Estim Creat Clear Calc 6.9 Estimated GFR 4 Random Glucose 115 Calcium 8.2 L Total Bilirubin 0.6 AST 24 ALT 32 H Alkaline Phosphatase 124 H Troponin I High Sens 29.4 H NT-Pro-B Natriuret Pep 78683.3 H Total Protein 7.6 Albumin 4.3 Influenza Type A (PCR) NEGATIVE Influenza Type B (PCR) NEGATIVE RSV RNA Qual (PCR) NEGATIVE SARS-CoV-2 RNA (RT-PCR) NEGATIVE T. vaginalis (PCR) NOT DETECTED Bact vaginosis (PCR) NEGATIVE C. krusei/glabrata (PCR) NOT DETECTED Kimberly group (PCR) DETECTED A Blood Type O Positive Antibody Screen NEGATIVE Assessment and Plan (1) Recurrent chest pain: Status: Acute Plan 39-year-old female with a past medical history of ESRD on hemodialysis Friday, diastolic CHF, myofascial pain syndrome, asthma, pulmonary hypertension, anemia, chronic low back pain, seizure disorder, anemia of chronic disease, hypertension, chronic respiratory failure-on home oxygen; GERD; presented to the hospital today with a chief complaint of body aches/vaginal itching/dysuria. Vaginal itching: Vaginal swab revealed candidiasis. Will defer to ID consult for treatment given multiple allergies UA pending Hyperkalemia: ESRD: Patient missed hemodialysis on Friday Potassium levels were 6.0. No significant EKG changes. Patient adamantly refused insulin plus dextrose. Given Lokelma. Follow up potassium level 6.8. Given another dose of Lokelma. Nephrology consult for hemodialysis in a.m.. Patient fistula in the left arm has good thrill Chest pain: Patient reports recurrent chest pain for about 2 weeks. EKG nonischemic. Cardiology consult. Diastolic CHF: Breathing comfortably. On supplemental oxygen. Patient due for hemodialysis in a.m.. Chronic pain syndrome: Continue Dilaudid, Benadryl p.r.n. continue home oxycodone Chronic anemia: Hemoglobin at 8.1 presentation. Denies any signs of bleeding. Patient reports that she gets erythropoietin injections once a year. Seizure disorder: Continue home Keppra 500 mg daily and 250 mg in addition to 500 mg on dialysis days Hypertensive urgency: Continue home nifedipine, minoxidil, carvedilol. DVT prophylaxis: Subcu heparin Code status: Full code Quality Stroke Does the patient have a stroke diagnosis?: No VTE Prior VTE?: No VTE Risk Level:: Medical - moderate - high VTE Device Contraindication: Treatment Not Indicated VTE Drug Contraindication: N/A - Med Ordered
[2025-04-22] MEDS: oxyCODONE HCl Immed Release 15 MG TABLET PO ×3 (01:57→22:55)
[2025-04-22 02:44] LABS: Anion Gap 24 (12-20); Blood Urea Nitrogen 64 mg/dL (9-16); Calcium 8.2 mg/dL (8.4-10.2); Carbon Dioxide 23 mmol/L (22-29); Chloride 100 mmol/L (96-108); Creatinine Clr Calc Pharmacy 6.6; Estimated Glomerular Filt Rate 4; Potassium 6.3 mmol/L (3.3-5.1); Sodium 141 mmol/L (135-145)
[2025-04-22] MEDS: NIFEdipine ER 30 MG TAB.ER.24 PO ×3 (04:48→21:49)
[2025-04-22 05:10] LABS: Alanine Aminotransferase 32 U/L (0-31); Albumin Level 4.0 g/dL (3.5-5.0); Alkaline Phosphatase 120 U/L (39-117); Anion Gap 25 (12-20); Aspartate Amino Transferase 37 U/L (5-31); Blood Urea Nitrogen 65 mg/dL (9-16); Calcium 7.9 mg/dL (8.4-10.2); Carbon Dioxide 21 mmol/L (22-29); Chloride 101 mmol/L (96-108); Creatinine Clr Calc Pharmacy 6.4; Estimated Glomerular Filt Rate 4; Potassium 6.8 mmol/L (3.3-5.1); Sodium 140 mmol/L (135-145); Total Protein 7.1 g/dL (6.5-8.0)
--- NOTE | 2025-04-22 06:33 | HO.NURTONUR ---
Addendum entered by Omaira Mcmillan RN 04/22/25 07:35: Pt alert and oriented this morning. Reporting vaginal itching and itching over body since yesterday that did not improve with benadryl. Pain 10/10 generalized body aches. Pt eating her breakfast, took her morning Protonix. 2L O2 NC. BP noted to be hypertensive. plan for dialysis. Pt reporting meds she got yesterday/ last night did not help. Original Note: 39y Female that presents to the ED for body aches and pain throughout, pt states that has not been able to take OXycodone for the last 48 hr, pt goes to dialysis M/W/F,fistula in the left arm pt missed her dialysis due to her pain being so severe, PT has also c/o dysuria and vaginal pain, Pt potassium is elevated to 6.2, pt has refused insulin/Dextrose even after being educated on benefits, provider was aware, with morning LAbs potassium elevated to 6.8, Dr. Mendiola was notified and given another Lokelma, pt has a 18g in the right AC, pt is being admitted for dialysis
--- NOTE | 2025-04-22 07:40 | PC.NURSE ---
Pt reports she does not make urine frequently, no urge to go at this time for urine sample
[2025-04-22] MEDS: 0.9 % Sodium Chloride Flush 3 ML SYRINGE IVFLUSH ×3 (08:54→21:50)
--- NOTE | 2025-04-22 10:37 | MHC.CM.PN ---
IMM GIVEN 04/22. THIS CM MET WITH PATIENT, SHE STATES SHE LIVES AT HOME WITH HER MOTHER, AND SIGNIFICANT OTHER. PATIENT GOES TO HD AT [facility] IN [place] ON . PATIENT HAS HOME O2 THROUGH [employer]. PATIENT WILL ARRANGE HER OWN TRANSPORT HOME AT DISCHARGE. PCP: DR. KAREN ANTONIO
--- NOTE | 2025-04-22 11:30 | PM.CNNEP ---
History of Present Illness Reason for Consult Consult date: 04/22/25 Chief Complaint Chief complaint: Hyperkalemia History of Present Illness Narrative: 39 years old lady with PMH of ESRD on HD TTS ([facility]), myofascial pain syndrome, pulmonary hypertension, hypertension, anemia history of multiple left upper extremity fistula revisions, history of seizures, chronic hypoxic respiratory failure on 2L NC presented to the ED with complains of bodyaches. She missed her session of HD yesterday and is hyperkalemic to 6.4 this morning. SHe is being dialyzed this afternoon and seen her during HD. Review of Systems Review of Systems Const : ++ body aches, no chills, no excessive sweating and ++ fatigue Eyes: no blurry vision and no change in vision ENT: no bleeding gums and no change in voice, no dizziness Card: no chest pain, no shortness of breath, no orthopnea, no PND Resp: no cough, no excessive phlegm production, no SOB GI: no abdominal pain and no nausea, no vomiting : no hematuria, no urinary frequency and no difficulty voiding Musc: no abnormal gait, no bone pain Neuro: no abnormal movements, + weakness Psych: no behavioral changes and no change in appetite Endo: no change in body appearance, no cold intolerance, no excessive sweating and no fatigue PMFSH Past Medical History Medical History (Updated 04/22/25 @ 14:55 by Ruben Diaz MD) Unspecified asthma Myofascial pain Diastolic CHF Tricuspid regurgitation Recurrent chest pain Pericardial effusion Pulmonary hypertension Iron deficiency anemia ESRD on hemodialysis Chest pain Chronic hypoxic respiratory failure Seizure disorder ESRD (end stage renal disease) on dialysis Family History Family History (Updated 04/18/25 @ 10:34 by Kassie Reyna MD) Other Diabetes mellitus Primary hypertension Social History Social History Household Members: Family Housing: House Do you presently have visiting nurse or other home services: No Patient Tobacco Use Status: Never used Tobacco e-Cigarette/Vaping Use: Never Used Have you been hit, kicked, punched, or otherwise hurt by someone within the past year? If so, by whom?: No Do you feel safe in your current relationship?: Yes Is there a partner from a previous relationship who is making you feel unsafe now?: No Are you made to feel afraid or neglected: No Advance Directives: No Advance Directives Information Provided: No Do you have a plan to hurt others: No Plan Recently lost weight without trying: No How much weight loss: Not applicable Eating poorly because of decreased appetite: No Nutrition screen score: 0 Nutrition Risks: No Nutritional Risk Patient : No : No Poor oral hygiene: No service: No Current occupational status: unemployed Meds Allergies Allergy/AdvReac Type Severity Reaction Status Date / Time ANNA Inhibitors Allergy Unknown Verified 04/21/25 18:08 adhesive tape Allergy Unknown Verified 04/21/25 18:08 amlodipine Allergy Unknown Verified 04/21/25 18:08 angiotensin II acetate, human Allergy Itching Verified 04/21/25 18:08 Beta-Blockers Allergy Itching Verified 04/21/25 18:08 (Beta-Adrenergic Bloc cinacalcet (From Sensipar) Allergy Unknown Verified 04/21/25 18:08 clonidine Allergy Anaphylaxis Verified 04/21/25 18:08 doxazosin Allergy Anaphylaxis Verified 04/21/25 18:08 epoetin michael-epbx (From Allergy Unknown Verified 04/21/25 18:08 Retacrit) epoetin beta Allergy Unknown Verified 04/21/25 18:08 furosemide Allergy Unknown Verified 04/21/25 18:08 gabapentin Allergy Anaphylaxis Verified 04/21/25 18:08 heparin Allergy Unknown Verified 04/21/25 18:08 hydralazine Allergy Anaphylaxis Verified 04/21/25 18:08 hydroxyzine Allergy Unknown Verified 04/21/25 18:08 ibuprofen (From Motrin) Allergy Unknown Verified 04/21/25 18:08 isosorbide Allergy Unknown Verified 04/21/25 18:08 labetalol Allergy Eye Verified 04/21/25 18:08 Swelling latex Allergy Itching Verified 04/21/25 18:08 levofloxacin Allergy Itching Verified 04/21/25 18:08 lisinopril Allergy Itching Verified 04/21/25 18:08 losartan Allergy Unknown Verified 04/21/25 18:08 methocarbamol Allergy Unknown Verified 04/21/25 18:08 metoprolol Allergy Unknown Verified 04/21/25 18:08 Penicillins Allergy Hives Verified 04/21/25 18:08 prednisone Allergy Unknown Verified 04/21/25 18:08 spironolactone Allergy Itching Verified 04/21/25 18:08 tramadol Allergy Unknown Verified 04/21/25 18:08 valsartan Allergy Facial Verified 04/21/25 18:08 Swelling diphenhydramine (From AdvReac Unknown Verified 04/21/25 18:08 Benadryl) dye in bendaryl pills AdvReac Itching Uncoded 02/12/25 05:59 Active Medications: Current Medications Acetaminophen (Acetaminophen 325 Mg Tablet) 650 mg PO Q6H PRN PRN Reason: Pain, Mild 1-3,fever,headache Last Admin: 04/22/25 03:21 Dose: 650 mg Budesonide (Budesonide 0.5 Mg/2 Ml Ampul.Neb) 0.25 mg INHALE BID PRN PRN Reason: shortness of breath or wheezing Calcium Carbonate (Calcium Carbonate 750 Mg Tab.Chew) 750 mg PO Q4H PRN PRN Reason: Heartburn Carvedilol (Carvedilol 25 Mg Tablet) 25 mg PO BIDWM [facility]; Protocol Last Admin: 04/22/25 09:00 Dose: 25 mg Diphenhydramine HCl (Diphenhydramine Hcl 50 Mg/Ml Vial) 25 mg IVPUSH Q6H PRN PRN Reason: Itching Last Admin: 04/22/25 02:27 Dose: 25 mg Hydromorphone HCl (Hydromorphone Hcl 1 Mg/Ml Syringe) 0.5 mg IVPUSH Q4H PRN; Protocol PRN Reason: Breakthrough Pain Last Admin: 04/22/25 09:07 Dose: 0.5 mg Levetiracetam (Levetiracetam 500 Mg Tablet) 500 mg PO DAILY [facility] Last Admin: 04/22/25 08:59 Dose: 500 mg Levetiracetam (Levetiracetam 250 Mg Tablet) 250 mg PO TUTA [facility] Magnesium Hydroxide (Milk Of Magnesia 30 Ml Oral.Susp) 30 ml PO DAILY PRN PRN Reason: Constipation Melatonin (Melatonin 3 Mg Tablet) 6 mg PO BEDTIME PRN PRN Reason: Insomnia Minoxidil (Minoxidil 2.5 Mg Tablet) 7.5 mg PO DAILY [facility] Last Admin: 04/22/25 08:59 Dose: 7.5 mg Nifedipine (Nifedipine Er 30 Mg Tab.Er.24) 30 mg PO BID [facility]; Protocol Last Admin: 04/22/25 09:00 Dose: 30 mg Oxycodone HCl (Oxycodone Hcl Immed Release 15 Mg Tablet) 15 mg PO Q4H PRN PRN Reason: Breakthrough Pain Last Admin: 04/22/25 01:57 Dose: 15 mg Pantoprazole Sodium (Pantoprazole Sodium 20 Mg Tablet.) 40 mg PO DAILY@0630 [facility] Last Admin: 04/22/25 07:30 Dose: 40 mg Sildenafil Citrate (Sildenafil Citrate 20 Mg Tablet) 20 mg PO TID [facility] Last Admin: 04/22/25 09:00 Dose: 20 mg Sodium Chloride (0.9 % Sodium Chloride Flush 3 Ml Syringe) [facility] Last Admin: 04/22/25 08:54 Dose: 3 ml Home Medications ?Medication ?Instructions ?Recorded ?Confirmed ?Last Taken ?Type cholecalciferol (vitamin D3) 50 100 mcg PO DAILY 12/30/24 04/21/25 04/21/25 09:00 History mcg (2,000 unit) tablet (Vitamin D3) pantoprazole 40 mg tablet,delayed 40 mg PO DAILY@0630 12/30/24 04/21/25 04/21/25 09:00 History release nifedipine 30 mg tablet,extended 30 mg PO TID 01/06/25 04/21/25 04/21/25 09:00 History release 24 hr sildenafil (pulm.hypertension) 20 20 mg PO TID 01/06/25 04/21/25 04/21/25 09:00 History mg tablet albuterol sulfate 90 mcg/actuation 2 puff inhalation Q6H PRN 02/08/25 04/21/25 04/21/25 09:00 History aerosol inhaler Shortness Of Breath Or Wheezing ferric citrate 210 mg iron tablet 420 mg PO TIDWM 04/18/25 04/21/25 04/21/25 09:00 History (Auryxia) formoterol fumarate 20 mcg/2 mL 2 ml inhalation BID PRN Wheezing 04/18/25 04/21/25 04/21/25 09:00 History solution for nebulization minoxidil 2.5 mg tablet 7.5 mg PO DAILY 04/18/25 04/21/25 04/21/25 09:00 History Physical Exam Vital Signs: Last Vital Signs Temp 96.8 F 04/22/25 08:49 Pulse 81 11/21/25 08:49 Resp 18 04/22/25 08:49 BP 194/94 H 04/22/25 08:49 Pulse Ox 96 04/22/25 07:31 O2 Del Method Nasal Cannula 04/22/25 07:31 O2 Flow Rate 2 04/22/25 07:31 BMI result Body Mass Index 26.3 General: not in any acute distress, ill appearing Nutritional Appearance: well nourished and overweight Eyes: appearance normal, both eyes and all related structures; Alignment and Position: alignment normal and position normal Neck: No lymphadenopathy, no thyromegaly Resp: bilateral air entry equal, no added sounds present Cardio: Regular rate, regular rhythm; Heart sounds: S1 normal heart sound present and S2 normal heart sound present GI: soft, nontender, no guarding, no hepatosplenomegaly : bladder normal to inspection, bladder normal to palpation, no renal angle tenderness Skin: no rashes or lesions noted and elasticity normal Neuro: alert, oriented x 3, moves all extremities Results Lab Results 04/21/25 18:25 04/22/25 04:32 Lab results: Chemistry 04/21/25 04/22/25 04/22/25 18:25 02:15 04:32 Sodium 144 141 140 Potassium 6.0 H* D 6.3 H* 6.8 H* Carbon Dioxide 24 23 21 L BUN 64 H 64 H 65 H Creatinine 9.86 H* 10.30 H* 10.69 H* Calcium 8.2 L 8.2 L 7.9 L Hematology 04/21/25 18:25 WBC 5.8 Hgb 8.1 L Plt Count 129 L Assessment and Plan (1) ESRD on hemodialysis: Status: Acute (2) Acute hyperkalemia: Status: Acute (3) Anemia: Status: Acute Plan 1. ESRD on HD HD schedule: MWF/ TTF, last session: Friday Access: Left upper extremity AV fistula Volume Status: At dry weight HD today with goals: duration 3.5 UF: To target dry weight K bath: 3 K will dialyze her early in the morning tomorrow for discharge planning 2. Electrolyte Management: Hyperkalemia: presented with K of 6.4 Should improve with dialysis Metabolic bone disease: Continue vitamin-D 300 mcg day dietary phosphate restriction less than 1g/day 3. Anemia of ESRD: Hb 8.1 We will get Ferritin, Iron levels, TIBC: We will decide JOANNE dosing based on the labs 4. Hypertension: Hold antihypertensives prior to HD continue nifedipine 30 b.i.d., carvedilol 25 b.i.d. Thanks for your consult, we will continue to follow up this patient along with you. Procedures Date of Service Date of Service: 04/22/25
--- NOTE | 2025-04-22 15:52 | W.PM.IDCN ---
History of Present Illness Data of Consult Service Date: 04/22/25 Requesting physician: Kam Cabrera Primary Care Provider: Kassie Reyna MD HPI Reason for consult: vaginal candidiasis She presents with body aches and generalized itching. She also has vaginal itching and thinks has yeast infection. She reports taking clotrimazole camryn and has taken Diflucan in past. She has no fever or chills. She reports she has had chest wall infections due to lines in past but is clear now. There are no positive cultures. Review of Systems Review of Systems: Yes all other systems are reviewed and are negative [facility] Past Medical History Medical History (Updated 04/22/25 @ 16:11 by Juju Alejandro MD) Vaginitis Unspecified asthma Myofascial pain Diastolic CHF Tricuspid regurgitation Recurrent chest pain Pericardial effusion Pulmonary hypertension Iron deficiency anemia ESRD on hemodialysis Chest pain Chronic hypoxic respiratory failure Seizure disorder ESRD (end stage renal disease) on dialysis Family History Family History Other Diabetes mellitus Primary hypertension Social History Social History Household Members: Family Housing: House Do you presently have visiting nurse or other home services: No Patient Tobacco Use Status: Never used Tobacco e-Cigarette/Vaping Use: Never Used Have you been hit, kicked, punched, or otherwise hurt by someone within the past year? If so, by whom?: No Do you feel safe in your current relationship?: Yes Is there a partner from a previous relationship who is making you feel unsafe now?: No Are you made to feel afraid or neglected: No Advance Directives: No Advance Directives Information Provided: No Do you have a plan to hurt others: No Plan Recently lost weight without trying: No How much weight loss: Not applicable Eating poorly because of decreased appetite: No Nutrition screen score: 0 Nutrition Risks: No Nutritional Risk Patient : No : No Poor oral hygiene: No service: No Current occupational status: unemployed Meds Allergies Allergy/AdvReac Type Severity Reaction Status Date / Time ANNA Inhibitors Allergy Unknown Verified 04/21/25 18:08 adhesive tape Allergy Unknown Verified 04/21/25 18:08 amlodipine Allergy Unknown Verified 04/21/25 18:08 angiotensin II acetate, human Allergy Itching Verified 04/21/25 18:08 Beta-Blockers Allergy Itching Verified 04/21/25 18:08 (Beta-Adrenergic Bloc cinacalcet (From Sensipar) Allergy Unknown Verified 04/21/25 18:08 clonidine Allergy Anaphylaxis Verified 04/21/25 18:08 doxazosin Allergy Anaphylaxis Verified 04/21/25 18:08 epoetin michael-epbx (From Allergy Unknown Verified 04/21/25 18:08 Retacrit) epoetin beta Allergy Unknown Verified 04/21/25 18:08 furosemide Allergy Unknown Verified 04/21/25 18:08 gabapentin Allergy Anaphylaxis Verified 04/21/25 18:08 heparin Allergy Unknown Verified 04/21/25 18:08 hydralazine Allergy Anaphylaxis Verified 04/21/25 18:08 hydroxyzine Allergy Unknown Verified 04/21/25 18:08 ibuprofen (From Motrin) Allergy Unknown Verified 04/21/25 18:08 isosorbide Allergy Unknown Verified 04/21/25 18:08 labetalol Allergy Eye Verified 04/21/25 18:08 Swelling latex Allergy Itching Verified 04/21/25 18:08 levofloxacin Allergy Itching Verified 04/21/25 18:08 lisinopril Allergy Itching Verified 04/21/25 18:08 losartan Allergy Unknown Verified 04/21/25 18:08 methocarbamol Allergy Unknown Verified 04/21/25 18:08 metoprolol Allergy Unknown Verified 04/21/25 18:08 Penicillins Allergy Hives Verified 04/21/25 18:08 prednisone Allergy Unknown Verified 04/21/25 18:08 spironolactone Allergy Itching Verified 04/21/25 18:08 tramadol Allergy Unknown Verified 04/21/25 18:08 valsartan Allergy Facial Verified 04/21/25 18:08 Swelling diphenhydramine (From AdvReac Unknown Verified 04/21/25 18:08 Benadryl) dye in bendaryl pills AdvReac Itching Uncoded 02/12/25 05:59 Active Medications: Current Medications Acetaminophen (Acetaminophen 325 Mg Tablet) 650 mg PO Q6H PRN PRN Reason: Pain, Mild 1-3,fever,headache Last Admin: 04/22/25 03:21 Dose: 650 mg Budesonide (Budesonide 0.5 Mg/2 Ml Ampul.Neb) 0.25 mg INHALE BID PRN PRN Reason: shortness of breath or wheezing Calcium Carbonate (Calcium Carbonate 750 Mg Tab.Chew) 750 mg PO Q4H PRN PRN Reason: Heartburn Carvedilol (Carvedilol 25 Mg Tablet) 25 mg PO BIDWM [facility]; Protocol Last Admin: 04/22/25 09:00 Dose: 25 mg Diphenhydramine HCl (Diphenhydramine Hcl 50 Mg/Ml Vial) 25 mg IVPUSH Q6H PRN PRN Reason: Itching Last Admin: 04/22/25 02:27 Dose: 25 mg Hydromorphone HCl (Hydromorphone Hcl 1 Mg/Ml Syringe) 0.5 mg IVPUSH Q4H PRN; Protocol PRN Reason: Breakthrough Pain Last Admin: 04/22/25 09:07 Dose: 0.5 mg Levetiracetam (Levetiracetam 500 Mg Tablet) 500 mg PO DAILY [facility] Last Admin: 04/22/25 08:59 Dose: 500 mg Levetiracetam (Levetiracetam 250 Mg Tablet) 250 mg PO [facility] Magnesium Hydroxide (Milk Of Magnesia 30 Ml Oral.Susp) 30 ml PO DAILY PRN PRN Reason: Constipation Melatonin (Melatonin 3 Mg Tablet) 6 mg PO BEDTIME PRN PRN Reason: Insomnia Minoxidil (Minoxidil 2.5 Mg Tablet) 7.5 mg PO DAILY [facility] Last Admin: 04/22/25 08:59 Dose: 7.5 mg Nifedipine (Nifedipine Er 30 Mg Tab.Er.24) 30 mg PO BID [facility]; Protocol Last Admin: 04/22/25 09:00 Dose: 30 mg Oxycodone HCl (Oxycodone Hcl Immed Release 15 Mg Tablet) 15 mg PO Q4H PRN PRN Reason: Breakthrough Pain Last Admin: 04/22/25 13:17 Dose: 15 mg Pantoprazole Sodium (Pantoprazole Sodium 20 Mg Tablet.Dr) 40 mg PO DAILY@0630 [facility] Last Admin: 04/22/25 07:30 Dose: 40 mg Sildenafil Citrate (Sildenafil Citrate 20 Mg Tablet) 20 mg PO TID [facility] Last Admin: 04/22/25 15:26 Dose: Not Given Sodium Chloride (0.9 % Sodium Chloride Flush 3 Ml Syringe) 3 ml IVFLUSH QSHIFT [facility] Last Admin: 04/22/25 08:54 Dose: 3 ml Home Medications ?Medication ?Instructions ?Recorded ?Confirmed ?Last Taken ?Type cholecalciferol (vitamin D3) 50 100 mcg PO DAILY 12/30/24 04/21/25 04/21/25 09:00 History mcg (2,000 unit) tablet (Vitamin D3) pantoprazole 40 mg tablet,delayed 40 mg PO DAILY@0630 12/30/24 04/21/25 04/21/25 09:00 History release nifedipine 30 mg tablet,extended 30 mg PO TID 01/06/25 04/21/25 04/21/25 09:00 History release 24 hr sildenafil (pulm.hypertension) 20 20 mg PO TID 01/06/25 04/21/25 04/21/25 09:00 History mg tablet albuterol sulfate 90 mcg/actuation 2 puff inhalation Q6H PRN 02/08/25 04/21/25 04/21/25 09:00 History aerosol inhaler Shortness Of Breath Or Wheezing ferric citrate 210 mg iron tablet 420 mg PO TIDWM 04/18/25 04/21/25 04/21/25 09:00 History (Auryxia) formoterol fumarate 20 mcg/2 mL 2 ml inhalation BID PRN Wheezing 04/18/25 04/21/25 04/21/25 09:00 History solution for nebulization minoxidil 2.5 mg tablet 7.5 mg PO DAILY 04/18/25 04/21/25 04/21/25 09:00 History Physical Exam Vital Signs: Vital Signs: Last Vital Signs Temp 96.8 F 04/22/25 08:49 Pulse 81 04/22/25 08:49 Resp 18 04/22/25 08:49 BP 194/94 H 04/22/25 08:49 Pulse Ox 96 04/22/25 07:31 O2 Del Method Nasal Cannula 04/22/25 07:31 O2 Flow Rate 2 04/22/25 07:31 BMI result Body Mass Index 26.3 Const: General: cooperative HEENT: Head: Yes normal to inspection Face and sinus: Yes normal facial exam Mouth: Normal oral and palatal mucosa present Teeth and gingiva: dentition normal Eyes: General: appearance normal, both eyes and all related structures Pupils: Equal, round and reactive pupils present Resp: Effort & Inspection: normal respiratory effort Cardio: Rate: regular rate Rhythm: regular rhythm GI: Palpation (GI): Soft to palpation and nontender : General: Yes no CVA tenderness Back/Spine/Pelvis: Back: no CVA tenderness Skin: General skin exam: no rashes or lesions noted Neuro: General: moves all extremities Cranial nerves: Yes Equal, round and reactive pupils present Extrem: General: Yes normal to inspection Psych: Appearance: grossly normal Results Labs 04/21/25 18:25 04/22/25 04:32 Labs: Short CBC 04/21/25 Range/Units 18:25 WBC 5.8 (4.8-10.8) X10*3/uL Hgb 8.1 L (12.0-16.0) g/dl Hct 26.0 L (37.0-47.0) % Plt Count 129 L (160-400) X10*3/uL BMP 04/21/25 04/22/25 04/22/25 18:25 02:15 04:32 Sodium 144 141 140 Potassium 6.0 H* D 6.3 H* 6.8 H* Chloride 103 100 101 Carbon Dioxide 24 23 21 L BUN 64 H 64 H 65 H Creatinine 9.86 H* 10.30 H* 10.69 H* Calcium 8.2 L 8.2 L 7.9 L Liver Function 04/21/25 04/22/25 Range/Units 18:25 04:32 Total Bilirubin 0.6 0.6 (0.0-1.0) mg/dL AST 24 37 H (5-31) U/L ALT 32 H 32 H (0-31) U/L Alkaline Phosphatase 124 H 120 H (39-117) U/L Albumin 4.3 4.0 (3.5-5.0) g/dL Assessment and Plan (1) ESRD on hemodialysis: Status: Acute (2) Vaginitis: Status: Acute Plan She has complaints of vaginal itching. She has had vaginal fungal infections before responded to treatment with antifungals but has not had similar resolution now. Possibly she may have different type of vaginitis or infection/?PID Would involve Gynecology to evaluate patient see if patient other types of infections or polyps or abnormalities including pre malignant or malignant lesions. No further antifungals at this time.
--- NOTE | 2025-04-22 16:33 | MHC.CM.PN ---
CM CONTACTED PT'S OUTPT HD [facility] [phone], PER NSG ALL HD PT'S HAVE STANDING PRN BENADRYL 25MG AND PRN BENADRYL 50MG DEPENDING ON SEVERITY OF SYMPTOMS. CM HAS UPDATED CHARGE NURSE.
--- NOTE | 2025-04-22 16:40 | MHC.CM.PN ---
PER PATIENTS REQUEST, THIS CM MET WITH HER WITH PATIENT EXPERIENCE SCHOOL DIRECTOR, CHARGE NURSE, AND PATIENTS NURSE, ALONG WITH ANOTHER CM AND THE HOSPITALIST TO REVIEW HER CONCERNS. PATIENTS CONCERNS VOICED, SHE IS REQUESTING A FEMALE PROVIDER IF POSSIBLE, IF ONE IS NOT THEN SHE WOULD LIKE A FEMALE ELECTRONIC PUBLICATIONS SPECIALIST PRESENT DURING THE VISIT/EXAM. PATIENT HAD OTHER CONCERNS ABOUT HER MEDICATIONS WELL. THIS CM SPOKE WITH [facility] DIRECTOR TO UPDATE HIM ON PATIENTS CONCERNS.
--- NOTE | 2025-04-22 16:57 | PC.NURSE ---
This RN spoke with patient on admission to unit this am addressed concerns about medications not yet having morning scheduled meds, not being seen by a day provider and issues overnight. At this time dialysis was ready for patient, who refused to go at this time since issues had not been addressed earlier. Dr Cabrera on unit to see patient within 10 minutes of request. AM meds given per order as well as IV Dilaudid for pain. Pt requesting to have both IV and PO oxycodone given at the same time. Patient educated by this RN on reasons for not being able to give both at the same time and may have the PO if IV did not help within a specific timeframe. At this time pt now agreeable to go to dialysis after needs met. This RN along with primary care RN, MD OSBALDO along with Patient Experience workers' compensation claims supervisor met with patient again mid afternoon to address concerns per pt request. Attempts made to address issues seem unsuccessful at this time, pt continues to state pain meds have not been given according to home schedule although had been given by RN during dialysis. This RN reached out to Dr Diaz per pt request about IV benadryl pre and post dialysis per MD cunha for before dialysis not after pt educated by this RN as well as Dr Cabrera. will continue to monitor during stay
--- NOTE | 2025-04-22 18:14 | PM.EVENT ---
Event Note Date of Service: 04/22/25 Event Note: Patient was evaluated multiple times today over the course of her admission. Patient reports that she is under medicated for her hemodialysis. The patient reports that Dilaudid and Benadryl IV prior to her hemodialysis session is insufficient. Requesting further Benadryl IV and regularly scheduled Dilaudid to be administered post hemodialysis. Extensive discussion with the patient regarding why this is dangerous, and inappropriate. Discussed with Nephrology - and in agreement. The patient has been refusing to take fluconazole throughout the day; as it is a new medication for her, and she refuses to take new medications. This is 2/2 multiple allergies listed. Infectious diseases was consulted for assistance with medications given her resistance to take fluconazole; input is much appreciated. On representation to the patient's room for a discussion regarding her under medication; the patient reports that she is suffering with vaginal itching. Clarified to the patient that this is 2/2 candidiasis, and intravenous Benadryl would be inappropriate in the situation. The patient reports that she already took fluconazole prior to my presentation to the room. Informed the patient that it will take some time for fluconazole to work. Informed the patient that we are not adverse to her receiving Benadryl in appropriate clinical settings. The patient reports that she can not receive tablets of Benadryl due to her allergy to a dye in the tablet; and can only receive IV. Suspect her itching may be 2/2 multifactorial issues, including uremia, dry skin and other possible issues. Discussed that we are not adverse to appropriately treating her itching with conservative management and other medication options. The patient reports that she will refused to take any new medications or conservative medications, other than IV Benadryl. Impression of malingering and DSB. Overall, the patient has received hemodialysis today. Her plan is to receive hemodialysis tomorrow. Plan for hemodialysis is to receive hydromorphone and Benadryl IV prior to hemodialysis, but not after, as discussed with the patient clearly and with Nephrology confirming the plan. Plan is for discharge tomorrow after hemodialysis Time Spent With Patient Time: Total time managing care of this patient today 60 minutes.
--- NOTE | 2025-04-22 20:26 | PC.NURSE ---
Attempted to medicate pt with night time meds, pt sleeping comfortable. Did not received any complaints of pain since I started my shift [id number]).
--- NOTE | 2025-04-22 22:51 | PC.NURSE ---
Pt requestion benadryl and sandwiches to eat. Provided 2 sandwiches, string cheese and cranberry juice. Very happy with care provided, calm and cooperative.
[2025-04-23] VITALS (9 sets, daily range): BP systolic 120–182; BP diastolic 59–92; PULSE 61–88; RESP 16–18; TEMP 36.4–36.9; O2SAT 92–100
--- NOTE | 2025-04-23 | ECG_ITS ---
Test Reason : chest pain Blood Pressure : */* mmHG Vent. Rate : 65 BPM Atrial Rate : 65 BPM P-R Int : 168 ms QRS Dur : 82 ms QT Int : 478 ms P-R-T Axes : 46 6 168 degrees QTcB Int : 497 ms Normal sinus rhythm Possible Left atrial enlargement Minimal voltage criteria for LVH, may be normal variant ( Portia product ) T wave abnormality, consider lateral ischemia Prolonged QT Abnormal ECG When compared with ECG of 21-Apr-2025 17:48, T wave inversion less evident in Lateral leads Referred By: Tiki Wynn Electronically Signed By: YANA LINARES
--- NOTE | 2025-04-23 00:34 | PC.NURSE ---
This RN assumed care of patient at 00:08. Upon transfer to [facility] pt endorsed chest pain and discomfort in right forearm. IV in right forearm infiltrated and edematous. IV removed and warm pack applied to site. Nursing pipe fitter supervisor maintenance Janeen holland, ICU nurse will come up to do ultrasound guided IV. SAMIRA Wynn notified via [place] at 00:16. EKG and labs ordered.
[2025-04-23 01:08] LABS: Anion Gap 19 (12-20); Blood Urea Nitrogen 33 mg/dL (9-16); Calcium 7.9 mg/dL (8.4-10.2); Carbon Dioxide 25 mmol/L (22-29); Chloride 98 mmol/L (96-108); Creatinine Clr Calc Pharmacy 11.6; Estimated Glomerular Filt Rate 7; Potassium 5.0 mmol/L (3.3-5.1); Sodium 137 mmol/L (135-145)
[2025-04-23 01:09] LABS: Troponin-I High Sensitivity 32.3 ng/L (<3.5-17.0)
--- NOTE | 2025-04-23 01:11 | PC.NURSE ---
Per SAMIRA Wynn, labs and EKG look okay, nothing to do at this time. Per SAMIRA, continue with prn pain meds.
--- NOTE | 2025-04-23 03:13 | PC.NURSE ---
At 00:15 new IV placed. Pt endorsing 10/10 pain in legs, arms, and spine. Pt not [place] for prn IV dilaudid until 01:49. SAMIRA Wynn notified via [place] text at 00:21. Per SAMIRA, okay to give prn dilaudid early. Pt endorsing itchiness to vaginal area, arms, legs, and breasts. Pt requesting additional dose of IV Benadryl. SAMIRA Wynn notified via [place] at 00:31. Nystatin cream ordered for vaginal area, however not available in Pyxis. Pt verbalized understanding that it must wait until AM. This RN offered barrier cream to alleviate discomfort. Pt pleasantly receptive saying, Thank you for advocating for me.
[2025-04-23] MEDS: oxyCODONE HCl Immed Release 15 MG TABLET PO ×3 (05:04→23:10)
--- NOTE | 2025-04-23 05:13 | PC.NURSE ---
This RN took manual BP on pt's leg. 182/92. SAMIRA Wynn notified via [place] text. No new orders at this time. Per PA, dialysis in AM will help with BP and pain management. Prn oxy given for pain, and IV push Benadryl administered for itchiness.
--- NOTE | 2025-04-23 05:51 | PC.NURSE ---
Pt requesting breathing tx for asthma. Respiratory called to administer prn neb tx.
--- NOTE | 2025-04-23 06:42 | PM.EVENT ---
Event Note Date of Service: 04/23/25 Event Note: pt complaining of vaginal itching, IV benadryl not helping. suggested trial of mycolog cream, order placed but not available in pharmacy until AM. Time Spent With Patient Time: Total time managing care of this patient today ____ minutes.
[2025-04-23] MEDS: NIFEdipine ER 30 MG TAB.ER.24 PO ×2 (08:50→22:00)
[2025-04-23] MEDS: 0.9 % Sodium Chloride Flush 3 ML SYRINGE IVFLUSH ×3 (08:50→22:04)
--- NOTE | 2025-04-23 16:53 | P.DS_ITS ---
DS: Providers Provider Date of Service: 04/23/25 Date of admission: 04/22/25 01:40 Date of discharge: 04/23/25 Primary care physician: Kassie Reyna MD Consults: 04/22/25 01:40 Consult to Nephrology Routine Consulting Provider: [facility] Reason for consultation: esrd ; hyperkalemia 04/22/25 02:09 Consult to Infectious Diseases Routine Consulting Provider: [facility] Reason for consultation: vaginal candidiasis DS: Diagnosis Discharge Diagnosis (1) ESRD on hemodialysis: Status: Acute (2) Vaginitis: Status: Acute DS: Summary Hospital Course Hospital Course: 39-year-old female with a past medical history of ESRD on hemodialysis Friday, diastolic CHF, myofascial pain syndrome, pulmonary hypertension, anemia, chronic low back pain, seizure disorder, anemia of chronic disease, hypertension, chronic respiratory failure-on home oxygen; GERD; presented to the hospital today with a chief complaint of body aches Patient reports that she always has body aches; more pain in her legs; Lately she felt short of breath and is having chest pain attributes herself probably having anemia. Reports he gets erythropoietin injections periodically. Patient reports she missed her hemodialysis session the day before coming to the hospital Patient denies any nausea or vomiting. Reports whole body itching. Mentions yesterday she felt dysuria, itching per vagina; and noticed discharge from the vaginal Denies any fevers. Denies any nausea or vomiting. Patient reports the chest pain has been going on for about 2 weeks. Reports this happens when she has anemia. Denies any nausea vomiting or diarrhea. Denies any chest pain at the time of my interview. Patient reports that she still makes urine but not as much. Reports that she takes torsemide at home. ER course: Per ER team, patient does not appear to be in volume overload; EKG nonischemic; creatinine elevated; potassium 6.0. Tried to give insulin plus dextrose but patient refused even after multiple reinforcements. Patient took Lokelma. Nephrology was notified. Patient was given Dilaudid for her chronic pain syndrome Vaginal swab showed Kimberly. PROBLEM LIST ESRD HD MWF Hyperkalemia Patient has missed hemodialysis on Friday prior. Suffered with hyperkalemia. Received hemodialysis 04/22 and 04/23. Potassium within normal limits. Nephrology was consulted for recommendations. The patient receives hydromorphone and IV Benadryl prior to undergoing hemodialysis, but not after. This was clarified with nephrology. Atypical chest pain Hypertensive urgency Patient presents with complaints of atypical chest pain for about 2 weeks. ECG unremarkable, nonischemic Labs unremarkable. Patient was noted to be hypertensive on presentation. Post hemodialysis, the patient's hypertensive urgency and atypical chest pain both resolved. Possibly 2/2 uremic versus hypertensive etiology. Nonischemic etiology. Chronic pain syndrome Itching Patient is on chronic home oxycodone The patient reports following with Dr. Grayson regarding her primary care and prescriptions The patient receives IV hydromorphone and IV Benadryl while in hospital prior to hemodialysis. The patient reports that her itching abates with use of IV Benadryl. Offered alternative medications treatments, emollients, conservative measures. These were all refused. Candidiasis Vaginitis Patient reports itching burning and discharge for the past few weeks. Patient reports significant swelling around region. Physical examination deferred to female provider, as per patient's wishes. Female provider examined the patient with the patient's consent. The patient declined to opt for a slot machine key person. As per female provider, intimate physical examination revealed no external genitalia swelling, without discharge. Pad noted with brown discharge, dried without adi discharge. Skin surrounding region reported to be similar in pigmentation; no hyperpigmentation. The patient refused to take fluconazole early in the course of admission, but was amenable to the medication yesterday. 150 mg once of fluconazole was administered to the patient. The patient reports that she does not want to try any ?new medication ?otherwise - deferred the wish to use vaginal pessary or creams. Offered referral to OBGYN to further evaluate the patient's complaints, to which she deferred. Status at Discharge Cognitive/behavioral status at discharge: Alert and oriented to person place time and situation Functional status at discharge: independent ambulation Overall status at discharge: patient is back to baseline Time Attestation Total time managing care of this patient today: 45 mintues. Discharge Coordination Time (in mins): 45 Quality: Safe Use of Opioids Does Pt have an Active Cancer Diagnosis on the Problem List?: No Quality: Stroke Does the patient have a stroke diagnosis?: No Physical Exam Exam: Exam: General: A&O x3, oriented to time place person and situation, comfortable, no pain Cardiac: S1, S2 auscultated with no S3/4, no MRG. Well perfused. Respiratory: Normal breath sounds auscultated throughout all lung zones, without wheezing, rales. Normal rate. GI/ : No abdominal pain on palpation, no masses or distentions. MSK: Normal ambulation without pain at bony prominences or musculature - left upper extremity fistula in place Neurological: Normal neurological examination on overview, without obvious CN II-XII abnormalities. Vital Signs: Vital Signs: Last Vital Signs Temp 98.2 F 04/23/25 15:49 Pulse 61 04/23/25 16:09 Resp 18 04/23/25 15:49 BP 142/64 H 04/23/25 16:09 Pulse Ox 100 04/23/25 15:49 O2 Del Method Nasal Cannula 04/23/25 15:49 O2 Flow Rate 2.0 04/23/25 15:49 BMI result Body Mass Index 26.3 DS: Data Data Completed and Pending Completed studies during hospitalization [Text1]: Procedures Insertion of Infusion Device into Upper Vein, Percutaneous Approach (02/08/25) Performance of Urinary Filtration, Intermittent, Less than 6 Hours Per Day (02/08/25) Labs on day of discharge: Laboratory Results - last 24 hr 04/23/25 00:42 Sodium 137 Potassium 5.0 D Chloride 98 Carbon Dioxide 25 Anion Gap 19 BUN 33 H Creatinine 6.46 H* Estim Creat Clear Calc 11.6 Estimated GFR 7 Random Glucose 124 H Calcium 7.9 L Troponin I High Sens 32.3 H Discharge Plan Discharge Anticipated Discharge Date/Time: 04/23/25 17:02 Patient Disposition: Home, Self-Care Discharge Diagnosis: Missed hemodialysis Referrals: Kassie Reyna MD [Primary Care Provider, Internal Medicine] - 1 Week Discharge Medications: No Action budesonide 0.5 mg/2 mL suspension for nebulization 0.25 mg inhalation BID PRN (Reason: shortness of breath or wheezing) Qty: 60 3RF Rx Instructions: dx: j45.909 asthma pantoprazole 40 mg tablet,delayed release (DR/EC) 40 mg PO DAILY@0630 cholecalciferol (vitamin D3) [Vitamin D3] 50 mcg (2,000 unit) tablet 100 mcg PO DAILY albuterol sulfate 90 mcg/actuation HFA aerosol inhaler 2 puff inhalation Q6H PRN (Reason: Shortness Of Breath Or Wheezing) oxycodone 15 mg Tablet 15 mg PO Q4H PRN (Reason: Breakthrough Pain) Qty: 20 0RF Rx Instructions: Partial Fill upon patient request. sildenafil (pulm.hypertension) 20 mg tablet 20 mg PO TID nifedipine 30 mg tablet extended release 24hr 30 mg PO TID minoxidil 2.5 mg tablet 7.5 mg PO DAILY formoterol fumarate 20 mcg/2 mL solution for nebulization 2 ml inhalation BID PRN (Reason: Wheezing) ferric citrate [Auryxia] 210 mg iron tablet 420 mg PO TIDWM carvedilol 25 mg tablet 25 mg PO BID 90 Days Qty: 180 2RF levetiracetam 500 mg tablet 500 mg PO DAILY 90 Days Qty: 90 2RF levetiracetam 250 mg tablet 250 mg PO TUTHSA 90 Days Qty: 39 3RF Discharge Orders: Discharge Order (Routine); Ordered 04/23/25 Ordered By: Kam Cabrera Diet: Advance to usual diet Activity on Discharge: As tolerated Stand Alone Forms: Patient Portal Discharge page Print Language: Stateless Care Plan Goals: As above Health Concerns: As above Plan of Treatment: Recommend patient to follow up with PCP within 1 week of discharge Offered the patient a referral to OBGYN, which she deferred in favor to returning to her PCP Follow up with Nephrology Recommend compliance with hemodialysis Friday Assessment: Hemodynamically stable for discharge post x2 hemodialysis sessions. No acute medical indication for the patient to remain inpatient. Remainder of workup unremarkable without concerning features that would warrant further workup and evaluation as an inpatient.
--- NOTE | 2025-04-23 23:14 | PC.NURSE ---
Plan was for patient to be d/c today, d/c orders in since 18:00. Pt declined d/c because she wouldn't be able to get pain meds until the morning. SAMIRA Wynn notified via [place]. Pt staying the night, plan for d/c tomorrow morning. Per SAMIRA Wynn, pt only to receive PO meds tonight since she was supposed to be discharged & the plan is to follow day team's plan for discharge. Pt reporting burning sensation in vaginal area, not a new finding. Pt refusing nystatin cream. Pt requesting IV Benadryl for itchiness. SAMIRA Wynn notified and made aware via [place] text. Plan continues to be only PO meds, no new orders. This RN re-educated pt on current plan of care.
--- NOTE | 2025-04-24 | ECG_ITS ---
Test Reason : chest pain Blood Pressure : */* mmHG Vent. Rate : 76 BPM Atrial Rate : 76 BPM P-R Int : 176 ms QRS Dur : 74 ms QT Int : 458 ms P-R-T Axes : 52 11 137 degrees QTcB Int : 515 ms Normal sinus rhythm [address] & T wave abnormality, consider lateral ischemia Prolonged QT Abnormal ECG When compared with ECG of 23-Apr-2025 00:43, T wave inversion more evident in Lateral leads Referred By: Tiki Wynn Electronically Signed By: YANA LINARES
--- NOTE | 2025-04-24 00:33 | PC.NURSE ---
Pt's BP was 180/73. SAMIRA Wynn notified via [place] text. Pt received 2 BP meds during med pass. Per SAMIRA Wynn, nifedipine onset is slower, continue to monitor. No new orders at this time.
[2025-04-24 02:15] VITALS: BP 171/72; PULSE 69; RESP 18; TEMP 36.9; O2SAT 96
--- NOTE | 2025-04-24 02:19 | PC.NURSE ---
Pt reporting chest pain. Vital signs obtained, stable. SAMIRA Wynn notified via [place] text. EKG, BMP, and troponin ordered. Labs collected, results pending. EKG results sent to provider.
[2025-04-24 02:32] LABS: Anion Gap 17 (12-20); Blood Urea Nitrogen 22 mg/dL (9-16); Calcium 8.3 mg/dL (8.4-10.2); Carbon Dioxide 29 mmol/L (22-29); Chloride 98 mmol/L (96-108); Creatinine Clr Calc Pharmacy 16.2; Estimated Glomerular Filt Rate 11; Potassium 3.8 mmol/L (3.3-5.1); Sodium 140 mmol/L (135-145)
[2025-04-24 02:37] LABS: Troponin-I High Sensitivity 31.9 ng/L (<3.5-17.0)
--- NOTE | 2025-04-24 02:56 | PC.NURSE ---
Pt requesting po prn oxycodone. SAMIRA Wynn notified, per SAMIRA okay to give early.
[2025-04-24] MEDS: oxyCODONE HCl Immed Release 15 MG TABLET PO (02:57)
[2025-04-24 04:00] VITALS: BP 181/74; PULSE 70; RESP 18; TEMP 36.6; O2SAT 96
[2025-04-24] MEDS: NIFEdipine ER 30 MG TAB.ER.24 PO (04:33)
--- NOTE | 2025-04-24 04:36 | PC.NURSE ---
Pt's BP 181/74. SAMIRA Wynn notified via [place] text. Per SAMIRA Wynn, give 09:00 nifedipine early. Med administered. During med administration, pt complained of a bump on her tongue. This RN assessed pt's mouth: Tongue was moist & pink, non-swollen. No bump visualized.
[2025-04-24 08:00] VITALS: BP 133/71; PULSE 74; RESP 18; TEMP 37.1; O2SAT 94
--- NOTE | 2025-04-24 09:01 | MHC.CM.PN ---
DP: PT HAS BEEN MEDICALLY CLEARED FOR DC HOME, NO SERVICES. PT HAS OWN [facility] HOME.
--- OUTSIDE RECORDS SUMMARY | 2025-06-10 19:00 | XMS_ITS | Clinical Summary ---
Author Organization Unknown Care Team Providers Care Reprint Sorter Name Role Phone RICK AKINS, BENITO Unavailable Unavailable ASMITA MCKEON, WILFRID Unavailable Unavailable DICK PT, AMBER Unavailable Unavailable ADARSH BERNALN, ABDIAS Unavailable Unavailable Payers Payer Name Policy Type Policy Number Effective Date Expira tion Date MEDICARE - [facility] [id number] Problems Condition Name Condition Details Condition Category Status Onset Date Resolution Date Last Treatment Date Treating Clinician Comments END STAGE RENAL DISEASE Active 2024-06 00:00: 00 HYPOKALEMIA Active 2024-06 00:00: 00 Allergies, Adverse Reactions, Alerts Allergy Name Allergy Type Status Severity Reaction(s) Onset Date Inactive Date Treating Clinician Comments CLONIDINE Propensity to adverse reactions Active 2024-06 08:34: 04 GABAPENTIN Propensity to adverse reactions Active 2024-06 08:34: 10 ANNA INHIBITORS Propensity to adverse reactions Active 2024-06 08:34: 18 ADHESIVE TAPE - SILICONES Propensity to adverse reactions Active 2024-06 08:34: 31 AMLODIPINE Propensity to adverse reactions Active 2024-06 08:34: 39 ARB ANGIOTENSIN RECEPTOR ANTAGONIST Propensity to adverse reactions Active 2024-06 08:35: 05 DIPHENHYDRAM INE Propensity to adverse reactions Active 2024-06 08:35: 37 BETA DEANNA Propensity to adverse reactions Active 2024-06 08:35: 45 DOXAZOSIN Propensity to adverse reactions Active 2024-06 08:36: 01 FUROSEMIDE Propensity to adverse reactions Active 2024-06 08:36: 12 HEPARIN Propensity to adverse reactions Active 2024-06 08:36: 18 HYDRALAZINE Propensity to adverse reactions Active 2024-06 08:36: 27 HYDROXYZINE Propensity to adverse reactions Active 2024-06 08:37: 37 ISORDIL Propensity to adverse reactions Active 2024-06 08:37: 46 Keflex Propensity to adverse reactions Active 2024-06 08:37: 53 LABETALOL Propensity to adverse reactions Active 2024-06 08:38: 02 LATEX Propensity to adverse reactions Active 2024-06 08:38: 10 LEVOFLOXACIN HYDRATE Propensity to adverse reactions Active 2024-06 08:38: 23 LISINOPRIL Propensity to adverse reactions Active 2024-06 08:38: 30 LOSARTAN Propensity to adverse reactions Active 2024-06 08:38: 38 METHOCARBAMO L Propensity to adverse reactions Active 2024-06 08:39: 00 METOPROLOL Propensity to adverse reactions Active 2024-06 08:39: 08 MIRCERA Propensity to adverse reactions Active 2024-06 08:39: 16 MOTRIN Propensity to adverse reactions Active 2024-06 08:39: 40 NITROGLYCERI N Propensity to adverse reactions Active 2024-06 08:39: 52 PENICILLIN Propensity to adverse reactions Active 2024-06 08:40: 02 PREDNISONE Propensity to adverse reactions Active 2024-06 08:40: 10 RETACRIT Propensity to adverse reactions Active 2024-06 08:40: 18 SENSIPAR Propensity to adverse reactions Active 2024-06 08:40: 26 SPIRONOLACTO NE Propensity to adverse reactions Active 2024-06 08:40: 45 TRAMADOL Propensity to adverse reactions Active 2024-06 08:40: 53 VALSARTAN Propensity to adverse reactions Active 2024-06 08:41: 06 Immunizations Ordered Immunization Name Filled Immunization Name Date Status Comments Refusal Reason COVID BOOSTER, COVID BOOSTER 2025-02-07 00:00:00 INFLUENZA, TIV (INACTIVATED) 2025-02-07 00:00:00 Vital Signs Vital Name Observation Time Observation Value Commen ts Temperature 2025-04-20 11:30:00.000 98.4 [degF] Temperature 2025-04-13 10:12:00.000 98.4 [degF] BMI (%) 2025-04-13 10:12:00.000 22 kg/m2 Height 2025-04-13 10:12:00.000 65 [in_us] Pulse 2025-04-20 11:30:00.000 63 /min Pulse 2025-04-13 10:12:00.000 77 /min O2 Saturation (%) 2025-04-20 11:30:00.000 95 % O2 Saturation (%) 2025-04-13 10:12:00.000 96 % Pain 2025-04-20 11:30:00.000 5 Pain 2025-04-13 10:12:00.000 7 Respirations 2025-04-20 11:30:00.000 18 /min Respirations 2025-04-13 10:12:00.000 18 /min Weight (kgs) 2025-04-13 10:12:00.000 60.8 Systolic Blood Pressure 2025-04-20 11:30:00.000 142 mm [Hg] Systolic Blood Pressure 2025-04-13 10:12:00.000 138 mm [Hg] Diastolic Blood Pressure 2025-04-20 11:30:00.000 80 mm [Hg] Diastolic Blood Pressure 2025-04-13 10:12:00.000 82 mm [Hg] Plan of Treatment Planned Activity Planned Date Details Comments Future Scheduled Test SKILLED NU RSE TO EVALUATE PATIENT, IDENTIFY PRIMARY AND CO-MORBID CONDITIONS CODED PER CODING GUIDELINES, AND DEVELOP PATIENT SPECIFIC PLAN OF CARE THAT INCLUDES PATIENT GOAL FOR HOME HEALTH. PLAN OF CARE TO INCLUDE 3 PRN VISIT(S) FOR OASIS DATA COLLECTION/COMPREHENSIVE ASSESSMENT AT TIMEPOINTS PER FEDERAL REGULATIONS. THIS INCLUDES VISITS FOR DEAN, RECERT, SCIC, AND/OR DC. [code = SKILLED NURSE TO EVALUATE PATIENT, IDENTIFY PRIMARY AND CO-MORBID CONDITIONS CODED PER CODING GUIDELINES, AND DEVELOP PATIENT SPECIFIC PLAN OF CARE THAT INCLUDES PATIENT GOAL FOR HOME HEALTH. PLAN OF CARE TO INCLUDE 3 PRN VISIT(S) FOR OASIS DATA COLLECTION/COMPREHENSIVE ASSESSMENT AT TIMEPOINTS PER FEDERAL REGULATIONS. THIS INCLUDES VISITS FOR DEAN, RECERT, SCIC, AND/OR DC.] Future Scheduled Test SKILLED NU RSE TO REVIEW PATIENT MEDICATIONS (PRESCRIPTION/OTC). INSTRUCT PATIENT/CAREGIVER ON ALL MEDICATIONS INCLUDING PURPOSE, WHEN TO TAKE, IMPORTANCE OF MEDICATION ADHERENCE, MONITORING OF EFFECTIVENESS, ADVERSE DRUG REACTIONS, POSSIBLE SIDE EFFECTS, AND WHEN TO NOTIFY AGENCY OR PHYSICIAN/PROVIDER OF ANY CONCERNS. [code = SKILLED NURSE TO REVIEW PATIENT MEDICATIONS (PRESCRIPTION/OTC). INSTRUCT PATIENT/CAREGIVER ON ALL MEDICATIONS INCLUDING PURPOSE, WHEN TO TAKE, IMPORTANCE OF MEDICATION ADHERENCE, MONITORING OF EFFECTIVENESS, ADVERSE DRUG REACTIONS, POSSIBLE SIDE EFFECTS, AND WHEN TO NOTIFY AGENCY OR PHYSICIAN/PROVIDER OF ANY CONCERNS.] Future Scheduled Test PATIENT LINTON S A RISK OF HOSPITALIZATION AND ED USE. SKILLED NURSE TO ESTABLISH SUPPORT MEASURES TO MINIMIZE RISK OF HOSPITALIZATION AND ED USE, AND INSTRUCT PATIENT/CAREGIVER ON METHODS TO REDUCE AVOIDABLE HOSPITALIZATION AND ED USE. [code = PATIENT HAS A RISK OF HOSPITALIZATION AND ED USE. SKILLED NURSE TO ESTABLISH SUPPORT MEASURES TO MINIMIZE RISK OF HOSPITALIZATION AND ED USE, AND INSTRUCT PATIENT/CAREGIVER ON METHODS TO REDUCE AVOIDABLE HOSPITALIZATION AND ED USE.] Future Scheduled Test SKILLED NU RSE TO PROVIDE INSTRUCTION TO PATIENT/CAREGIVER RELATED TO DISCHARGE PLANNING. [code = SKILLED NURSE TO PROVIDE INSTRUCTION TO PATIENT/CAREGIVER RELATED TO DISCHARGE PLANNING.] Future Scheduled Test SKILLED NU RSE TO PERFORM ENVIRONMENTAL SAFETY RISK ASSESSMENT AND FALL RISK ASSESSMENT AND PROVIDE INSTRUCTION TO IMPLEMENT ENVIRONMENTAL SAFETY AND FALL PREVENTION STRATEGIES THROUGHOUT THE CERTIFICATION PERIOD. SKILLED NURSE WILL MAINTAIN SITUATIONAL AWARENESS AND WILL NOTIFY CLINICAL FIRE LIEUTENANT MARINE AND PHYSICIAN/PROVIDER WITH ANY CHANGE IN CONDITION. [code = SKILLED NURSE TO PERFORM ENVIRONMENTAL SAFETY RISK ASSESSMENT AND FALL RISK ASSESSMENT AND PROVIDE INSTRUCTION TO IMPLEMENT ENVIRONMENTAL SAFETY AND FALL PREVENTION STRATEGIES THROUGHOUT THE CERTIFICATION PERIOD. SKILLED NURSE WILL MAINTAIN SITUATIONAL AWARENESS AND WILL NOTIFY CLINICAL FIRE LIEUTENANT MARINE AND PHYSICIAN/PROVIDER WITH ANY CHANGE IN CONDITION.] Future Scheduled Test SKILLED NU RSE FOR OBSERVATION AND ASSESSMENT OF PATIENT S PAIN LEVEL AND EFFECTIVENESS OF PAIN MANAGEMENT REGIMEN. SKILLED NURSE TO INSTRUCT PATIENT/CAREGIVER REGARDING PHARMACOLOGIC AND NON-PHARMACOLOGIC PAIN CONTROL MEASURES. SKILLED NURSE TO REPORT TO PHYSICIAN IF PAIN LEVEL IS OUTSIDE OF ESTABLISHED PARAMETERS. [code = SKILLED NURSE FOR OBSERVATION AND ASSESSMENT OF PATIENT S PAIN LEVEL AND EFFECTIVENESS OF PAIN MANAGEMENT REGIMEN. SKILLED NURSE TO INSTRUCT PATIENT/CAREGIVER REGARDING PHARMACOLOGIC AND NON-PHARMACOLOGIC PAIN CONTROL MEASURES. SKILLED NURSE TO REPORT TO PHYSICIAN IF PAIN LEVEL IS OUTSIDE OF ESTABLISHED PARAMETERS.] Future Scheduled Test SKILLED NU RSE TO ASSESS PATIENT'S SKIN INTEGRITY AND INSTRUCT PATIENT/CAREGIVER ON MEASURES TO PREVENT PRESSURE ULCERS. 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 [code = SKILLED NURSE FOR O/A OF RESPIRATORY SYSTEM TO IDENTIFY CHANGES ASSOCIATED WITH EXACERBATION AND TO PROVIDE SKILLED TEACHING ON MANAGEMENT OF CHRONIC RESPIRATORY FAILURE ON OXYGEN RESPIRATORY DISEASE PROCESS.] Future Scheduled Test OXYGEN VIA NC @ 3 LITERS CONTINUOUS. SKILLED NURSE FOR O/A AND SKILLED TEACHING OF SAFE OXYGEN USE IN THE HOME. [code = OXYGEN VIA NC @ 3 LITERS CONTINUOUS. SKILLED NURSE FOR O/A AND SKILLED TEACHING OF SAFE OXYGEN USE IN THE HOME.] Future Scheduled Test SKILLED NU RSE FOR O/A, TEACHING AND SELF-MANAGEMENT RELATED TO HEART FAILURE. INSTRUCT PATIENT/CAREGIVER ON SIGNS AND SYMPTOMS OF EXACERBATION TO REPORT AND IMPORTANCE OF OBTAINING AND RECORDING DAILY WEIGHT AND/OR MEASUREMENTS. SN OR TRAINED PATIENT/CAREGIVER TO OBTAIN WEIGHT DAILY AND WEIGHT GAIN OF 2 LBS OVERNIGHT OR 5 LBS IN 1 WEEK TO BE REPORTED TO PHYSICIAN/PROVIDER. IF UNABLE TO WEIGH PATIENT, SN OR TRAINED PATIENT/CAREGIVER TO OBTAIN MEASUREMENT OF L CALF IN CM DAILY AND REPORT AN INCREASE OF 2 CM TO PHYSICIAN/PROVIDER. [code = SKILLED NURSE FOR O/A, TEACHING AND SELF-MANAGEMENT RELATED TO HEART FAILURE. INSTRUCT PATIENT/CAREGIVER ON SIGNS AND SYMPTOMS OF EXACERBATION TO REPORT AND IMPORTANCE OF OBTAINING AND RECORDING DAILY WEIGHT AND/OR MEASUREMENTS. SN OR TRAINED PATIENT/CAREGIVER TO OBTAIN WEIGHT DAILY AND WEIGHT GAIN OF 2 LBS OVERNIGHT OR 5 LBS IN 1 WEEK TO BE REPORTED TO PHYSICIAN/PROVIDER. IF UNABLE TO WEIGH PATIENT, SN OR TRAINED PATIENT/CAREGIVER TO OBTAIN MEASUREMENT OF L CALF IN CM DAILY AND REPORT AN INCREASE OF 2 CM TO PHYSICIAN/PROVIDER.] Future Scheduled Test SKILLED NU RSE TO PROVIDE TEACHING ON SIGNS AND SYMPTOMS AND MANAGEMENT OF HYPERTENSION. [code = SKILLED NURSE TO PROVIDE TEACHING ON SIGNS AND SYMPTOMS AND MANAGEMENT OF HYPERTENSION.] Future Scheduled Test SKILLED NU RSE FOR O/A AND SKILLED TEACHING RELATED TO SIGNS AND SYMPTOMS AND MANAGEMENT OF ANEMIA. [code = SKILLED NURSE FOR O/A AND SKILLED TEACHING RELATED TO SIGNS AND SYMPTOMS AND MANAGEMENT OF ANEMIA.] Future Scheduled Test SKILLED NU RSE TO INSTRUCT ON SAFETY MEASURES TO PREVENT INJURY SECONDARY TO SEIZURE DISORDER/IMPAIRED NEUROLOGICAL STATUS. [code = SKILLED NURSE TO INSTRUCT ON SAFETY MEASURES TO PREVENT INJURY SECONDARY TO SEIZURE DISORDER/IMPAIRED NEUROLOGICAL STATUS.] Future Scheduled Test SKILLED NU RSE FOR O/A AND SKILLED TEACHING RELATED TO SIGNS AND SYMPTOMS AND MANAGEMENT OF MUSCLE WEAKNESS [code = SKILLED NURSE FOR O/A AND SKILLED TEACHING RELATED TO SIGNS AND SYMPTOMS AND MANAGEMENT OF MUSCLE WEAKNESS] Future Scheduled Test PHYSICAL T HERAPIST TO EVALUATE PATIENT FOR MUSCLE WEAKNESS ENDURANCE [code = PHYSICAL THERAPIST TO EVALUATE PATIENT FOR MUSCLE WEAKNESS ENDURANCE] Future Scheduled Test SKILLED NU RSE FOR O/A, TEACHING AND MANAGEMENT OF ESRD ON DIALYSIS FOR EARLY IDENTIFICATION OF EXACERBATION OF DISEASE PROCESS [code = SKILLED NURSE FOR O/A, TEACHING AND MANAGEMENT OF ESRD ON DIALYSIS FOR EARLY IDENTIFICATION OF EXACERBATION OF DISEASE PROCESS] Goal Patient Goal - GET STRONGER Goal Provider Goal - A PLAN OF CARE WILL BE ESTABLISHED THAT MEETS PATIENT'S HALF-WAY NEEDS AND INCLUDES PATIENT GOAL FOR HOME HEALTH. Goal Provider Goal - PATIENT/CAREGIVER WILL VERBALIZE UNDERSTANDING OF EDUCATION PROVIDED ON MEDICATIONS BY THE END OF THE CERTIFICATION PERIOD. Goal Provider Goal - PATIENT WILL HAVE SUPPORT MEASURES ESTABLISHED TO PREVENT HOSPITALIZATION AND ED USE AND PATIENT/CAREGIVER WILL VERBALIZE/DEMONSTRATE METHODS TO REDUCE AVOIDABLE HOSPITALIZATION AND ED USE BY END OF EPISODE. Goal Provider Goal - PATIENT/CAREGIVER WILL VERBALIZE UNDERSTANDING OF DISCHARGE PLANNING INSTRUCTIONS BY DATE OF DISCHARGE. Goal Provider Goal - PATIENT/CAREGIVER WILL VERBALIZE/DEMONSTRATE EFFECTIVE ENVIRONMENTAL SAFETY AND FALL PREVENTION STRATEGIES, WILL REMAIN SAFE IN THE COMMUNITY, AND WILL BE FREE OF DANGER TO SELF AND OTHERS THROUGHOUT THE CERTIFICATION PERIOD. Goal Provider Goal - PATIENT/CAREGIVER WILL DEMONSTRATE UNDERSTANDING OF PHARMACOLOGIC AND NONPHARMACOLOGIC PAIN CONTROL MEASURES AND PATIENT WILL HAVE IMPROVEMENT IN PAIN INTERFERING WITH ACTIVITY EVIDENCED BY PAIN AT A LEVEL THAT IS ACCEPTABLE TO THE PATIENT AND PAIN LEVEL WITHIN ESTABLISHED PARAMETERS BY END OF CERTIFICATION PERIOD. Goal Provider Goal - PATIENT/CAREGIVER WILL VERBALIZE UNDERSTANDING OF PRESSURE ULCER PREVENTION BY END OF THE EPISODE. Goal Provider Goal - PATIENT/CAREGIVER WILL VERBALIZE/DEMONSTRATE MANAGEMENT OF CHRONIC RESPIRATORY FAILURE ON OXYGEN RESPIRATORY DISEASE PROCESS. CHANGES IN RESPIRATORY STATUS WILL BE IDENTIFIED AND REPORTED TO PHYSICIAN FOR PROMPT INTERVENTION THROUGHOUT THE CERTIFICATION PERIOD. Goal Provider Goal - PATIENT/CAREGIVER WILL VERBALIZE/DEMONSTRATE UNDERSTANDING OF SAFE OXYGEN USE IN THE HOME THROUGHOUT THE EPISODE. Goal Provider Goal - PATIENT/CAREGIVER WILL VERBALIZE/DEMONSTRATE KNOWLEDGE AND MANAGEMENT OF HEART FAILURE DISEASE PROCESS BY END OF EPISODE. Goal Provider Goal - PATIENT/CAREGIVER WILL VERBALIZE SIGNS AND SYMPTOMS OF HYPERTENSION AND WILL BE ABLE TO DEMONSTRATE ABILITY TO MANAGE EXACERBATION BY END OF THE EPISODE. Goal Provider Goal - PATIENT/CARGIVER WILL VERBALIZE UNDERSTANDING OF ANEMIA INCLUDING SIGNS AND SYMPTOMS, MANAGEMENT OF COMPLICATIONS, AND PRESCRIBED TREATMENT REGIMEN BY END OF EPISODE. Goal Provider Goal - PATIENT/CAREGIVER WILL VERBALIZE/DEMONSTRATE SEIZURE PRECAUTIONS AND CARE OF PATIENT TO PROMOTE SAFETY AND PREVENT INJURY BY THE END OF THE CERTIFICATION PERIOD. Goal Provider Goal - PATIENT/CAREGIVER WILL VERBALIZE UNDERSTANDING OF MUSCLE WEAKNESS MUSCULOSKELETAL DISEASE INCLUDING SIGNS AND SYMPTOMS, MANAGEMENT, AND PRESCRIBED TREATMENT REGIMEN BY END OF EPISODE. Goal Provider Goal - A PHYSICAL THERAPY EVALUATION TO BE COMPLETED WITH RECOMMENDATIONS AND/OR WRITTEN PLAN OF TREATMENT ESTABLISHED FOR PHYSICIAN S SIGNATURE. Goal Provider Goal - PATIENT/CAREGIVER WILL VERBALIZE UNDERSTANDING OF ESRD ON DIALYSIS GENITOURINARY DISEASE PROCESS, AND EXACERBATIONS OF GENITOURINARY DISEASE WILL BE PROMPTLY IDENTIFIED FOR EARLY INTERVENTION THROUGHOUT THE CERTIFICATION PERIOD. Progress Notes Progress Notes <paragraph>[Visit Date: 2024 by ABDIAS ALTAMIRANO LPN]:</paragraph><paragraph>SNV 04/20/25</paragraph><paragraph></paragraph><paragraph>ABNORMAL VITALS: NA</paragraph><paragraph></paragraph><paragraph>FALLS: PT DENIES FALL SINCE LAST STAY AT [facility] A FEW WEEKS AGO</paragraph><paragraph></paragraph><paragraph>OBSERVATION AND ASSESSMENT PROVIDED: ALERT X3 PLEASANT DEMEANOR COOPERATIVE PT. VISIT COMPLETED AT DINING ROOM TABLE. VSS. AFEBRILE. PT VISIBLY TIRED. INFORMED THIS CONFORMAL PAD FORMER SHE COULD NOT SLEEP LAST NIGHT. PRACTICED DEEP BREATHING EXERCISES AND REVIEWED MEDITATION APPS ON PHONE TO USE TO PROMOTE RELAXTION AND PROMOTE SLEEP. PT RECEPTIVE TO EDUCATION. ENCOURAGED PT TO TAKE IT EASY TODAY TO PREVENT INCREASED RISK OF FALLS. NO MEDIATION CHANGES REPORTED. APPETITE REMAINS MINIMAL, BUT WEIGHT IS CHECKED DAILY AND MAINTAINING AROUND 125-135LBS. LUNGS DIMINISHED BUT CLEAR. 3LITERS OXYGEN VIA NASAL CANULA MAINTAINING SPO2 LEVELS IN MID 90S. SPO2 READING DURING VISIT 95%. NO SIGNS OF RESPIRATORY DISTRESS OBSERVED. SKIN INTACT. NO CP OR EDEMA. PT REPORTS STILL VOIDING. NO CONCERNS VOICED TO THIS CONFORMAL PAD FORMER. +BS X4 LAST BM TODAY. PT SCHEDULED TO GO TO [place] FRIDAY WHERE SHE IS FOLLOWED AND HOPING TO BE APPROVED FOR A TRANSPLANT. SUPPORT PROVIDED TO PT AT THIS TIME TO REMAIN STRONG SHE REPORTS FEELING TIRED OF ALL THE HEALTH COMPLICATIONS GOING ON AT THIS TIME. FISTULA ISSUES PERSIST, BUT PT REMAINS HOPEFUL THAT WILL BE FIXED. REVIEWED CALENDAR WITH PT FOR UPCOMING VISITS. INFORMED A NURSE WOULD BE IN CONTACT TO SCHEDULE SOON. PT ARGEEBLE.</paragraph><paragraph></paragraph><paragraph>EDUCATION: FALL PREVENTION, DEEP BREATHING/MEDITATION TO RELAX AND PROMOTE SLEEP</paragraph><paragraph></paragraph><paragraph>INTERVENTIONS NEEDED AT NEXT VISIT: PULM ASSESSMENT</paragraph><paragraph></paragraph><paragraph>COMMUNICATION WITH MD: NA</paragraph><paragraph></paragraph><paragraph>NEXT MD APPOINTMENT: DIALYSIS 04/[address] [facility]</paragraph><paragraph></paragraph><paragraph>PATIENT AND CAREGIVER INSTRUCTED TO CALL [facility] WITH ANY QUESTIONS OR CONCERNS AND/OR CHANGES IN CONDITION, PATIENT STATES UNDERSTANDING. </paragraph><paragraph></paragraph><paragraph>ABDIAS ALTAMIRANO LPN</paragraph> Encounters Start Date/Time End Date/Time Encounter Type Admission Type Attending [facility] Facility Care Department Encounter ID Discharge Date Discharge Status Discharge Condition Discharge Reason Percent Goals Met 2025-04-13 00:00:00 2025-06-11 00:00:00 Outpatient NEW ADMISSION WILFRID [facility] [id number] 17 .24
== END 2025-04-24 08:52 | disposition home or self-care (01) | DRG 640 ==
LOC: HO.ED 21:49 → HO.EDOVER 04-22 01:44 → HO.IMC 04-22 07:23 → HO.S3 04-23 00:06
PROVIDERS: Nurse Practitioner; Physician Assistant; Admitting Provider Hospitalist; Emergency Provider Emergency Medicine; PCP Internal Medicine; Visit Provider Family Medicine
DX: E87.5 Hyperkalemia (principal); N18.6 End stage renal disease; I13.2 Hypertensive heart and chronic kidney disease with heart failure and with stage 5 chronic kidney disease, or end stage renal disease; I50.32 Chronic diastolic (congestive) heart failure; G89.4 Chronic pain syndrome; I27.20 Pulmonary hypertension, unspecified; N25.0 Renal osteodystrophy; D63.1 Anemia in chronic kidney disease; I16.0 Hypertensive urgency; G40.909 Epilepsy, unspecified, not intractable, without status epilepticus; B37.31 Acute candidiasis of vulva and vagina; Z20.822 Contact with and (suspected) exposure to COVID-19; Z99.2 Dependence on renal dialysis; Z91.158 Patient's noncompliance with renal dialysis for other reason; Z79.899 Other long term (current) drug therapy
CPT/HCPCS: 36415; 71045; 80048; 80053; 81515; 83880; 84484; 85025; 85610; 85730; 86850; 86900; 86901; 87637; 90999; 93005; 94640; 99285; J0613; J1171; J1200

== ENCOUNTER → 2025-04-21 17:45 | Outpatient (BNV) | payer MEDICARE, MEDICAID, SELFPAY | PROVIDERS: Admitting Provider Hospitalist; Emergency Provider Emergency Medicine; PCP Internal Medicine; Visit Provider Internal Medicine | DX: R94.31 Abnormal electrocardiogram [ECG] [EKG] (principal); R07.9 Chest pain, unspecified | CPT/HCPCS: 93010 ==

== ENCOUNTER → 2025-04-21 18:08 | Outpatient (BNV) | payer MEDICARE, MEDICAID, SELFPAY | PROVIDERS: PCP Internal Medicine; Visit Provider Radiology Diagnostic Radiology | DX: R07.9 Chest pain, unspecified (principal); R06.02 Shortness of breath | CPT/HCPCS: 71045 ==

== ENCOUNTER 2025-04-22 01:40 | Outpatient (BNV) | payer MEDICARE, MEDICAID, SELFPAY | END 2025-04-23 00:43 | PROVIDERS: Admitting Provider Hospitalist; Emergency Provider Emergency Medicine; PCP Internal Medicine; Visit Provider Internal Medicine | DX: R94.31 Abnormal electrocardiogram [ECG] [EKG] (principal); R07.9 Chest pain, unspecified | CPT/HCPCS: 93010 ==

== ENCOUNTER 2025-04-22 01:40 | Outpatient (BNV) | payer MEDICARE, MEDICAID, SELFPAY | END 2025-04-24 02:09 | PROVIDERS: Admitting Provider Hospitalist; Emergency Provider Emergency Medicine; PCP Internal Medicine; Visit Provider Internal Medicine | DX: R94.31 Abnormal electrocardiogram [ECG] [EKG] (principal); R07.9 Chest pain, unspecified | CPT/HCPCS: 93010 ==

== ENCOUNTER → 2025-04-22 01:40 | Outpatient (BNV) | payer MEDICARE, MEDICAID, SELFPAY | PROVIDERS: Admitting Provider Hospitalist; Emergency Provider Emergency Medicine; PCP Internal Medicine; Visit Provider Internal Medicine Critical Care Medicine | DX: N18.6 End stage renal disease (principal); Z99.2 Dependence on renal dialysis; E87.5 Hyperkalemia; D64.9 Anemia, unspecified | CPT/HCPCS: 99223 ==

== ENCOUNTER → 2025-04-22 01:40 | Outpatient (BNV) | payer MEDICARE, MEDICAID, SELFPAY | PROVIDERS: Admitting Provider Hospitalist; Emergency Provider Emergency Medicine; PCP Internal Medicine; Visit Provider Internal Medicine | DX: N18.6 End stage renal disease (principal); Z99.2 Dependence on renal dialysis; N76.0 Acute vaginitis | CPT/HCPCS: 99222 ==

== ENCOUNTER → 2025-05-02 23:59 | Outpatient (BNV) | payer MEDICARE, MEDICAID, SELFPAY | PROVIDERS: PCP Internal Medicine; Visit Provider Internal Medicine Nephrology | DX: N18.6 End stage renal disease (principal) | CPT/HCPCS: 90962 ==

== ENCOUNTER 2025-05-14 06:36 | Emergency (ER) | payer MEDICARE, MEDICAID, SELFPAY ==
--- OUTSIDE RECORDS SUMMARY | 2024-01-17 04:00 | XMS_ITS ---
Author Organization [facility] Address [address] [place] [address] [phone] Care Team Providers Care Perlite Grinder Name Role Phone Migration, Provider Unavailable Unavailable REASON FOR VISIT EMR-Stone Encounters Encounter Location Date Provider Diagnosis [facility] [address] [place] [address] [phone] 01/17/2024 Provider Migration Plan Of Treatment No Information Progress Notes * OROZCO ANUELISEDOB: [birth year] (39 yo F)Acc No.[id number]:01/17/2024 Patient: HIMA CORTEZ :1985 A ge:38 Y S ex:Female Address:[address] [place] [address], [address] Subjective: * Chief Complaints: * E MR-Stone * * Date:
--- OUTSIDE RECORDS SUMMARY | 2024-01-18 04:00 | XMS_ITS ---
Author Organization [facility] Address [address] [place] [address] [phone] Care Team Providers Care Notary Public Name Role Phone Migration, Provider Unavailable Unavailable REASON FOR VISIT EMR-Stone Encounters Encounter Location Date Provider Diagnosis [facility] [address] [place] [address] [phone] 01/18/2024 Provider Migration Plan Of Treatment No Information Progress Notes * OROZCO ANUELISEDOB: [birth year] (39 yo F)Acc No.[id number]:01/18/2024 Patient: HIMA CORTEZ :1985 A ge:38 Y S ex:Female Address:[address] [place] [address], [address] Subjective: * Chief Complaints: * E MR-Stone * * Date:
--- OUTSIDE RECORDS SUMMARY | 2025-05-11 16:42 | XMS_ITS | Continuity of Care Document ---
Author Organization [facility] ter Address [address] [place] [id number] Care Team Providers Care Machine Iii Coremaker Name Role Phone Not on Staff, PCP Primary Care Physician Unavail able Encounter [facility] Date(s): 05/08/25 - 05/11/25 [facility] [address] [place] [id number] Encounter Diagnosis Hyperkalemia(Final) - 05/08/25 Discharge Disposition: A-D/C Home Attending Physician: Duke AKINS, Yordy Admitting Physician: Ashlee Hoffman MD, Regulo Bacon Referring Physician: Not on Staff, Referring MD Encounter Type: Disch IP Allergies, Adverse Reactions, Alerts Substance Criticality Severity Reaction Reaction Severity Status ibuprofen Unknown Active labetalol ithcing of eyes Acti ve doxazosin no anaphylaxis throat swelling Active hydrOXYzine 1 Active gabapentin High criticality Severe anaphylaxis Active furosemide 2 Eruption Active hydrALAZINE 3 Anaphylaxis Acti ve metoprolol Eruption Active heparin Active isosorbide dinitrate High criticality Severe Active predniSONE 4 Eruption Other Active spironolactone Rash Itching Swelling of breast Active lisinopril throat tightening Active methocarbamol Unknown Active valsartan Tongue swelling Itch Facial swelling Active penicillins hives C/O: itching Swelling of throat Active losartan 5 Active angiotensin converting enzyme inhibitors itchy, rash Unknown Active beta blockers Unknown Active Latex Eruption Itching Active Other Environmental Allergy dye in benadryl Active amLODIPine rash Unknown Active Retacrit Active Motrin Active Adhesive Bandage Act grecia Sensipar Active epoetin beta-methoxy polyethylene glycol Unable to assess criticality Persistent Severe Dyspnea Eruption Active ANNA inhibitors Unknown Activ e cloNIDine Anaphylaxis Active traMADol throat tightening Active cloNIDine topical chest pain A ctive levoFLOXacin Skin peeling an d itchiness Active 1tolerates diphenhydramine 2Outside Source Comment: And stomach pain 3On 11/18/2022 had anaphylactic reaction in hospital. Patient reports similar sxs previously with higher doses of hydralazine when tried in past. Patient dose increased overnight - developed hives diffusely, stridor, and wheezing. Resolved with IM epi etc. 4Outside Source Comment: Swelling x 1 episodes. She has taken prednisone at other times without a problem 5Pruritis/rash Functional Status Functional Status Assessment Assessment Assessment Component Result Effecti ve Date Total Falls Risk Score 9 Functional Status Assessment Assessment Assessment Component Result Effecti ve Date Bertin scale total score 20 05/10/25 Functional Status Assessment Assessment Assessment Component Result Effecti ve Date Total Falls Risk Score 0 Functional Status Assessment Assessment Assessment Component Result Effecti ve Date Unspecifed Functional Status Assessment Skin abnormality typ e (observable entity) Unknown Etiology 05/11/25 Functional Status Assessment Assessment Assessment Component Result Effecti ve Date Total Falls Risk Score 4 05/11 Functional Status Assessment Assessment Assessment Component Result Effecti ve Date Bertin scale total score 19 03/26 Functional Status Assessment Assessment Assessment Component Result Effecti ve Date Bertin scale total score 21 05/09/25 Functional Status Assessment Assessment Assessment Component Result Effecti ve Date Unspecifed Functional Status Assessment Skin abnormality typ e (observable entity) Unknown Etiology 05/11/25 Immunizations Given and Recorded Vaccine Date Status [...] 9:55:00 AM EDT, Route to Pharmacy Electronically, [facility]/pharmacy #[id number], Partial fill upon patient [...] Refills, Maintenance, 03/02/25 4:27:00 PM EDT, Aerosol, [facility]/pharmacy #[id number], Partial fill upon patient [...] 1 Refills, Maintenance, 01/21/25 10:45:00 AM EDT, [facility]/pharmacy #[id number], Partial fill upon patient [...] Refills, Maintenance, 03/18/25 10:53:00 AM EDT, Capsule, [facility], Partial fill upon patient [...] oral tablet 25 mg, Tablet, By Mouth, Hold for: systolic BP <100, 05/11/25 9:00:00 AM EST Start Date: 05/11/25 Stop Date: 05/11/25 Status: Completed Medication Dispense Status: Completed Total Allowed Fills: 1 Fills Dispensed: 0 cholecalciferol 2000 intl units oral tablet 1 tablet = 50 mcg, By Mouth, Daily, # 30 tablet, 0 Refills, Maintenance, 03/18/25 10:30:00 AM EDT, [facility], Partial fill upon patient request if the prescription is for a schedule IIopioid drug., 165, cm, 03/18/25 0:34:00 EDT, Height, 61.4, kg, 03/18/25 0:34:00 EDT, Dry Weight Start Date: 03/18/25 Stop Date: 04/17/25 Status: Ordered Medication Dispense Status: Completed Quantity: 30.0 Unit: tablet Total Allowed Fills: 1 Fills Dispensed: 0 fluconazole 150 mg oral tablet 1 tablet = 150 mg, By Mouth, Once, take it if symptoms does not improve after 4 days, # 1 tablet, 0Refills, Soft Stop, 04/26/25 7:40:00 AM EST, Tablet, [facility], Partial fill upon patient request if the prescription is for a schedule II opioid drug., 165, cm, 04/16/25 15:43:00 EST,Height, 66.1, kg, 04/15/25 6:42:00 EST, Dry Weight Start Date: 04/26/25 Status: Ordered Medication Dispense Status: Completed Quantity: 1.0 Unit: tablet Total Allowed Fills: 1 Fills [...] 1 Refills, Maintenance, 01/06/25 7:21:00 AM EDT, [facility]/pharmacy #[id number], takes in addition to [...] Minoxidil Tablet 7.5 mg, Tablet, By Mouth, 05/11/25 9:00:00 AM EST Start Date: 05/11/25 Stop Date: 05/11/25 Status: Completed Medication Dispense Status: Completed Total [...] pain, # 168 tablet, 0 Refills, Maintenance, 05/02/25 6:32:00 PM EST, Tablet, [facility]/pharmacy #[id number], Partial fill upon patient request if the prescription is for a schedule II opioid drug., 165, cm, 05/02/25 17:38:00 EST, Height, 66.1, kg, 04/29/25 20:08:00 EST, Dry Weight Start Date: 05/02/25 Stop Date: 05/30/25 Status: Ordered Medication Dispense Status: Completed Quantity: 168.0 Unit: tablet Total Allowed Fills: 1 Fills Dispensed: 0 oxyCODONE 5 mg oral tablet 15 mg, Tablet, By Mouth, Every 4 hours, Hold for sedation, respiratory depression, hypotension, PRNfor Pain , Moderate, Routine, 05/09/25 4:56:00 PM EST Start Date: 05/09/25 Stop Date: 05/12/25 Status: Discontinued Medication Dispense Status: Completed Total Allowed Fills: [...] Total Allowed Fills: 5 Fills Dispensed: 0 sildenafil 20 mg oral tablet 1 tablet = 20 mg, By Mouth, 3 times a day, # 90 tablet, 0 Refills, Maintenance, 04/26/25 7:49:00 AMEST, Tablet, Partial fill upon patient request if the prescription is for a schedule II opioid drug. Start Date: 04/26/25 Status: Ordered Medication Dispense Status: Completed Quantity: 90.0 Unit: tablet Total Allowed Fills: 1 Fills Dispensed: 0 VITAMIN D3 2,000 UNIT TABLET VITAMIN D3 2,000 UNIT TABLET, TAKE 1 TABLET BY MOUTH EVERY DAY Start Date: 12/23/24 Status: Ordered Medication Dispense Status: Completed Total Allowed Fills: 1 Fills Dispensed: 0 Mental Status Mental Status Assessment Assessment Assessment Component Result Effecti ve Date De coma score total 15 05/08/25 Mental Status Assessment Assessment Assessment Component Result Effecti ve Date [place] coma score total 15 03/26 Mental Status Assessment Assessment Assessment Component Result Effecti ve Date [place] coma score total 15 05/08/25 Problem List Condition Confirmation Course Effective Dates [...] Exam Date Time Procedure Performing Provider Status 05/11/25 1:17 PM US Doppler Ext Upper Venous Left Auth (Verified) Notes: (US Doppler Ext Upper Venous Left) Reason For Exam: Pain/Tenderness Extremities RESULT: US Doppler Ext Upper Venous Left US Doppler Ext Upper Venous Left Reason: Pain Tenderness Extremities; Clinical Question(s): Thrombosis. COMPARISON: 10/27/2024. IMAGING TECHNIQUE: Ultrasound examination of the upper extremity deep venous system was performed using grayscale, color, and spectral wave analysis including response to compression. Assessment includes the contralateral jugular and subclavian vein. FINDINGS: Internal jugular vein: Patent. No thrombosis. Subclavian vein: Patent. No thrombosis. Axillary vein: Patent. No thrombosis. Brachial vein: Patent. No thrombosis. Basilic vein: Patent. No thrombosis. Cephalic vein: Patent. No thrombosis. Contralateral internal jugular vein: Patent. No thrombosis. Contralateral subclavian vein: Patent. No thrombosis. Partially-imaged arteriovenous fistula in the upper arm is not evaluated on the current examination. IMPRESSION: No evidence of venous thrombosis. WSN: [id number] Ordering Physician: Yordy Wall Dictated By: Marcial Thakur MD Dictated Date/Time: 05/11/25 1:38 pm Reviewed By: Marcial Thakur MD Signed By: Marcial Thakur MD Signed Date/Time: 05/11/25 1:38 pm Transcribed By: MIGUE Transcribed Date/Time: 05/11/25 1:19 pm * Exam Date Time Procedure Performing Provider Status 05/07/25 8:39 PM Chest Portable Auth (Veri fied) Notes: (Chest Portable) Reason For Exam: Angina RESULT: Chest Portable Chest Portable Hx of Present Illness: BIBA from home due to excrusiating pain 10 10 months on off. Pt states she missed 2 days dialysis due to the excrusiating pain. hx CKF and HF; Reason: Angina; Clinical Question(s): CHF COMPARISON: Multiple priors, most recent 04/29/2025 CTA chest 01/12/2025 FINDINGS: LINES AND TUBES: None. LUNGS AND PLEURA: Clear lungs. Normal pulmonary vascularity. No evidence of pleural effusion. No pneumothorax. HEART, MEDIASTINUM AND STUART: Stable moderate cardiomegaly Normal mediastinal and hilar contour. BONES AND SOFT TISSUES: No acute abnormality. Surgical clips projecting over the lower neck. IMPRESSION: No acute abnormality. Stable cardiomegaly I have personally reviewed the images and I agree with this report. WSN: [id number] Ordering Physician: Tiff Robles Dictated By: Rita Baker DO Dictated Date/Time: 05/07/25 8:47 pm Reviewed By: Sam Wilkerson MD Signed By: Sam Wilkerson MD Signed Date/Time: 05/07/25 8:52 pm Transcribed By: MIGUE Transcribed Date/Time: 05/07/25 8:45 pm Vital Signs Most recent to oldest [Reference Range]: 1 2 3 Height 165 cm (05/11/25 4:48 AM) 165 cm (05/11/25 12:48 AM) 165 cm (05/10/25 9:42 PM) Weight 98.2 kg (05/11/25 6:48 AM) 64 kg (05/08/25 1:56 AM) 61 kg (05/07/25 8:08 PM) Oxygen Saturation [94-100 %] 98 % (05/11/25 8:00 AM) 100 % (05/11/25 4:48 AM) 100 % (05/11/25 12:48 AM) Pulse Rate [55-90 bpm] 63 bpm (05/11/25 10:05 AM) 63 bpm (05/11/25 8:00 AM) 57 bpm (05/11/25 4:48 AM) Body Mass Index [18.5-24.99 kg/m2] 23.51 kg/m2 (05/08/25 1:56 AM) 22.41 kg/m2 (05/07/25 7:44 PM) Blood Pressure [90-138/55-84 mm Hg] 164/66mm Hg *H* (05/11/25 10:05 AM) 164/66mm Hg *H* (05/11/25 10:04 AM) 164/66mm Hg *H* (05/11/25 8:00 AM) Respiratory Rate [16-30 br/min] 16 br/min (05/11/25 3:43 PM) 16 br/min (05/11/25 11:04 AM) 16 br/min (05/11/25 10:04 AM) Temperature [96.8-100.4 DegF] 98.3 DegF (05/11/25 8:00 AM) 97.8 DegF (05/11/25 4:48 AM) 97.5 DegF (05/11/25 12:48 AM) Liters per Minute 2 L/min (05/11/25 8:00 AM) 1 L/min (05/10/25 8:30 PM) 1 L/min (05/10/25 8:28 PM) Mode of Delivery (Oxygen) Nasal cannula (05/11/25 8:00 AM) Room air (05/11/25 4:48 AM) Room air (05/11/25 12:48 AM) Blood pressure sites Leg, left (05/11/25 8:00 AM) Arm, right (05/11/25 4:48 AM) Arm, right (05/11/25 12:48 AM) Temperature Route Oral (05/11/25 8:00 AM) Oral (05/11/25 4:48 AM) Oral (05/11/25 12:48 AM) Dry Weight 61 kg (05/08/25 1:56 AM) 61 kg (05/07/25 8:08 PM) Weight Obtained Via Bed scale (05/08/25 1:56 AM) Patient/family stated (05/07/25 8:08 PM) Dry Weight Obtained Via Bed scale (05/08/25 1:56 AM) Social History Social History Type Response Smoking Status Never (less than 100 in lifetime) entered on: 04/24/25 Sexual Orientation Self described orien tation: ; Straight or heterosexual Sex Sex Representation Female (finding) Status N/A Consult note * Sheela Valladares MD: PERFORM Event Display: Consult Authored Date: [id number] Patient: ??HIMA MORRIS ? Age:??39 Years?Sex:??Female?:??1985?LOC:??[facility]?? Chief Complaint Chest Pressure Reason for Consultation Hyperkalemic Emergency History of Present Illness 39-year-old woman with past medical history of ESRD??the setting of hypertensive nephrosclerosis.??On??intermittent hemodialysis??(TTS)??with??left upper extremity??AV fistula.?? Presents due to CP, SOB, and??missed dialysis. Last iHD was 4 days ago. In the ED found to have a potassium of 7. Unfortunately became hemodynamically compromised, repeat K was 9. Noted to have wide-complex tachycardia and sine pattern. Admitted to MICU and required emergent iHD.? Past medical history is significant for HTN,??history of??large circumferential pericardial effusion (s/p pericardial drain placement for 20 days Jun-Jul 2023), chronic systolic heart failure withEF 45-50%, chronic??back pain with chronic narcotic dependence, interstitial lung disease, pulmonary hypertension, severe tricuspid regurgitation,??and mood disorder.?? She has been??hospitalized multiple times in recent months, with some admissions to??[facility] but also admissions to [facility], [facility], [facility],??and [facility].??Has had??extensive??fistula revisions done last??in??September 30, 2024??at??[facility].? Review of Systems Const:??no fever, no chills HEENT:??no dizziness, no headaches, no vision changes Resp:??no SOB, no wheezing, no cough CV:??Admits CP, SOB,?? GI:??no abdominal pain, no n/v, no diarrhea, no constipation, no melena, no hematochezia :??no dysuria, no hematuria MSK:??no myalgias, no DROM, no back pain Neuro:??no paresthesias, no focal weakness?? Skin:??Pruritus?? Heme:??No easy bruising, no bleeding or clotting tendency ?? 03/11 systems were reviewed and were negative for any positive or negative complaint, except as mentioned above Physical Exam Vitals & Measurements T:??97.4?F?? TMIN:??97.0?F?? TMAX:??98.4?F?? HR:??61??(Monitored)?? RR:??13?? BP:??133/87?? SpO2:??100%?? WT:??64??kg?? Physical exam GENERAL??Sleeping HEENT??NC/AT CARDIO??RRR RESP??CTAx2, ABD??+BS, S+D, MSK/SKIN/EXT??No??edema ?No aaron HEMODIALYSIS ACCESS??LUE AVF Assessment/Plan ASSESMENT: 39-year-old woman with past medical history of ESRD??the setting of hypertensive nephrosclerosis.??On??intermittent hemodialysis??(TTS)??with??left upper extremity??AV fistula.?? Presents due to CP, SOB, and missed dialysis. Last iHD was 4 days ago. Admitted to MICU due to Hyperkalemic emergency.? Hyperkalemic Emergency?? Pt with significant hyperkalemia, up to 9. Due to missed dialysis.??EKG showing sine pattern. Treated with calcium gluconate and insulin drip. Was emergently dialyzed. Cardiac rhythm has normalized. Will need close monitoring of K. If above 5 plan to dialyze??again.??Have to keep an eye as she received multiple doses of insulin and albuterol, we may still see shifting of potassium.? ESRD??2ry to??HTN Nephrosclerosis - schedule: T/T/S at [facility] - access: L upper arm AVF - adequacy: currently not??meeting outpatient clearance goals; frequently cuts/skips treatments at outpatient HD ?? PLAN:? If serum K > 5 later today plan for another dialysis session. iHD TTS schedule?? Lokelma as needed for hyperkalemia ? Patient evaluated and discussed with Dr. Sosa ?? Sheela Valladares, PGY5 Nephrology Fellow Pager Number [phone]/Available [employer]? (The above document was created using [email or web address] voice recognition software. As such, horticulturalist errors may occur. Please contact the provider for additional questions and if clarification is needed.)? Problem List/Past Medical History Ongoing (HFpEF) heart failure with preserved ejection fraction [...] disorder Tricuspid regurgitation UTI (urinary tract infection) Procedure/Surgical History delivery only; including care: 12/03/12 Parathyroidectomy Medications Inpatient Dextrose 50% in Water(Dextrose 50% Inj Syringe (25Gm)), 12.5 Gm, IV Push Slowly, Every 20 minutes, PRN Dextrose 50% in Water(Dextrose 50% Inj Syringe (25Gm)), 25 Gm, IV Push Slowly, Every 15 minutes, PRN Glucagon(Glucagon Inj), 1 mg, Intramuscular, Once, PRN Glucose(Glucose Gel), 15 Gm, By Mouth, Every 20 minutes, PRN Glucose(Glucose Gel), 30 Gm, By Mouth, Every 20 minutes, PRN levETIRAcetam(levETIRAcetam 250 mg oral tablet), 750 mg, By Mouth, Daily in AM NORepinephrine 4 mg(Levophed 4 mg / NaCL 0.9% 250 mL 4 mg), 4 mg= 250 mL, IV Infusion Oxycodone(oxyCODONE 5 mg oral tablet), 15 mg, By Mouth, Every 4 hours, PRN Pantoprazole(pantoprazole 40 mg oral delayed release tablet), 40 mg, By Mouth, Daily Polyethylene Glycol 3350(MiraLax Powder), 17 Gm= 1 pack/packet, By Mouth, Daily, PRN Senna(Senna 8.6 mg oral tablet), 8.6 mg= 1 tablet, By Mouth, 2 times a day Sildenafil(sildenafil 20 mg oral tablet), 20 mg, By Mouth, 3 times a day Home Acetaminophen(acetaminophen 325 mg oral tablet), 975 mg, By Mouth, Every 6 hours, 1 refills Albuterol(Albuterol (Eqv-Ventolin HFA) 90 mcg/inh inhalation aerosol), 2 puffs, Inhalation, Every 6hours, 1 refills Calcitriol(calcitriol 0.25 mcg oral capsule), 0.25 mcg, By Mouth, Daily Carvedilol(carvedilol 25 mg oral tablet), 25 mg= 1 tablet, By Mouth, 2 times a day Cholecalciferol(cholecalciferol 2000 intl units oral tablet), 50 mcg= 1 tablet, By Mouth, Daily ferric citrate(Auryxia 210 mg oral tablet) Fluconazole(fluconazole 150 mg oral tablet), 150 mg= 1 tablet, By Mouth, Once Fluticasone-Salmeterol(Advair HFA 230 mcg / 21 mcg), 2 puffs, Inhalation, 2 times a day, 11 refills levETIRAcetam(levETIRAcetam 250 mg oral tablet), 500 mg, By Mouth, Daily in AM levETIRAcetam(levETIRAcetam 250 mg oral tablet), 250 mg= 1 tablet, By Mouth, Daily in AM, 1 refills Minoxidil(minoxidil 2.5 mg oral tablet), 7.5 mg= 3 tablet, By Mouth, Daily Miscellaneous Rx(VITAMIN D3 2,000 UNIT TABLET) NIFEdipine(NIFEdipine 60 mg oral tablet, extended release), 60 mg= 1 tablet, By Mouth, 2 times a day Oxycodone(oxyCODONE 15 mg oral tablet), 15 mg= 1 tablet, By Mouth, Every 4 hours, PRN Pantoprazole(pantoprazole 40 mg oral delayed release tablet), 40 mg= 1 tablet, By Mouth, Daily, 4 refills Sildenafil(sildenafil 20 mg oral tablet), 20 mg= 1 tablet, By Mouth, 3 times a day Allergies gabapentin(Severe)??anaphylaxis isosorbide dinitrate(Severe) epoetin beta-methoxy polyethylene glycol [...] traMADol??throat tightening valsartan??Tongue swelling, Itch, Facial swelling Social History Alcohol Use:Never Electronic Cigarette/Vaping E-Cigarette Use:Never Exercise Self assessment:Fair condition Home/Environment Living situation:Home/Independent Nutrition/Health Diet: (Don't list allergies here)Renal Sexual Gender identity:Female Self described orientation:Straight or heterosexual Preferred pronoun:She/Her/Hers Substance Abuse Use:Never Tobacco Use:Never (less than 100 in lifetime) Family History Congestive heart failure: Pat. Grandfather. Diabetes mellitus: Mother. Diabetes mellitus type II: Mother. Hypertension: Mother, Father, Mat. Grandmother, Pat. Grandfather and Pat. Grandmother. Immunizations Vaccine Date Status influenza virus vaccine, inactivated - Not Given Comments : Patient Refuses Patient stated he already received vaccine pneumococcal 23-valent vaccine 10/18/2017 Given pneumococcal 23-valent vaccine - Not Given Comments : Patient Refuses influenza virus vaccine, inactivated 05/02/2016 Given pneumococcal 23-valent vaccine - Not Given Comments : Patient Refuses pneumococcal 23-valent vaccine - Not Given Comments : Patient Refuses influenza virus vaccine, inactivated - Not Given Comments : Patient Refuses tetanus/diphtheria/pertussis, acel(Tdap) 12/03/2012 Given Comments : Pt given [facility] vaccine info sheet hepatitis B adult vaccine 06/24/2000 Recorded Lab Results Last CBC, CMP & Coagulation WBC: 8.7 k/mm3 (05/07/25) Hgb:??9.7 Gm/dL??Low (05/07/25) Hct:??31.4 %??Low (05/07/25) Platelet Count: 168 k/mm3 (05/07/25) Sodium: 135 mmol/L (05/08/25) Potassium: 4.6 mmol/L (05/08/25) Chloride:??94 mmol/L??Low (05/08/25) Bicarbonate Level: 23 mmol/L (05/08/25) Anion Gap:??18 mmol/L??High (05/08/25) Glucose Level:??112 mg/dL??High (05/08/25) Glucose, POC:??106 mg/dL??High (05/08/25) BUN:??43 mg/dL??High (05/08/25) Creatinine-Blood:??6.13 mg/dL??High (05/08/25) Estimated GFR Creatinine: 8 ML/MIN/1.73 M2 (05/08/25) Calcium: 9.1 mg/dL (05/08/25) Magnesium: 2.3 mg/dL (05/08/25) * Roby Sosa MD: PERFORM Event Display: Consult Authored Date: [id number] RENAL??ATTENDING AMMENDMENT:?I have seen and evaluated this patient. ??I have discussed the caseand its management with the resident/team as documented in the resident/team note on the day of service.?The??details of the case including pertinent labs and clinical findings were confirmed by me. ??The plan was formulated with the student/resident/fellow/PA/CHIEF MARKETING OFFICER as outlined above. 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 Treated emergently for symptomatic severe hyperkalemia; will need to monitor her potassium today as she may have intra --> extracellular shifts throughout the day; may need further dialysis tonight if her potassium is on the rise; otherwise, will schedule for tomorrow.?Roby Sosa MD. Admission evaluation note * Malcolm AKINS, Sneha: PERFORM, MODIFY Event Display: Admission Note Authored Date: Patient: ??HIMA MORRIS ? Age:??39 Years?Sex:??Female?:??1985?LOC:??[facility]?? History of Present Illness 39-year-old female with past medical history of HTN, chronic pain, ESRD on intermittent hemodialysis (TTS) with left upper extremity AV fistula, HFpEF and??recent admission (05/03) for hyperkalemia inthe setting of missed dialysis, presented to the ED originally for acute on chronic back pain, abdominal pain, chest pain, pain in left arm.?? On presentation patient reported that she had missed herlast 2 sessions of dialysis and was last dialyzed several days ago. ?? On arrival patient very hypertensive, afebrile, normal cardiac initially, saturating 100% on 3 L nasal cannula. Initial labs demonstrated stable normocytic anemia, hyperkalemia to 7.8, high anion gapmetabolic acidosis, creatinine of 13, high-sensitivity troponin mildly elevated and flat. While in the ED pt received calcium gluconate, insulin, dextrose, albuterol, Mg, and renal was consulted for emergent dialysis.?? Shortly after patient developed wide-complex tachycardia on EKG.?? EKG suggestive of sine pattern in setting of severe hyperkalemia. Repeat K in the ED was 9.1. MICU was consulted given concern for pending instability given severe hyperkalemia. Pt transferred to MICU for closer monitoring while being dialyzed. ?? On arrival to the MICU pt became tachycardiac to 200s w/ hypotension, and pt reported c/p. Repeat EKG was unchanged. Pt was given Insulin, calcium gluconate, dextrose, dextrose, started on Levophed. Pt was started on dialysis, and soon after pt's BP stabilized, HR improved, and she reported she wasstarting to come back. Telemetry improved as P waves were now distinct, HR improved, and QRS complexes narrowed.? Pt evaluated at bedside. Pt reports that she was recently discharged from [facility] 5 days ago. Since then she has felt very unwell, and states she was bed bound. Pt states that she did not go to her dialysis sessions given feeling unwell, and significant acute on chronic pain. Pt also reports that she has had ongoing issues w/ her fistula for approximately 12 years. Pt lives w/ parents, significant other, and 12 year old son. 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 ?? While in the MICU pt stated that she was requiring pain medication given sever acute on chronic pain. She??became upset when she was given PO Dilaudid, stating that she had a bad reaction to it inthe past. Pt also unhappy that she was not given Benadryl w/ Dialysis, reporting that she always receives Benadryl w/ Dialysis due to itching.?? Review of Systems Pt initially endorsed chest pain, however this resolved. Endorses chronic low back pain. Denies SOB, fevers/chills, n/v.?? Objective Measurements?? Height: 165 cm (05/08/25) Weight: 64 kg (05/08/25) Dry Weight: 61 kg (05/08/25) Body Mass Index: 23.51 kg/m2 (05/08/25) ? Vital Signs?? Temperature: 97 DegF (05/08/25 04:00:00) Temperature Route: Axillary (05/08/25 04:00:00) Pulse Rate:??178 bpm??High (05/08/25 01:56:00) Heart Rate Monitored: 58 bpm (05/08/25 06:00:58) Respiratory Rate:??9 br/min??Low (05/08/25 06:00:58) Vented: No (05/08/25 03:10:00) Systolic Blood Pressure: 113 mm Hg (05/08/25 06:00:00) Diastolic Blood Pressure: 76 mm Hg (05/08/25 06:00:00) Blood pressure sites: Arm, right (05/08/25 06:00:00) Mean Arterial Pressure: 67 mm Hg (05/08/25 01:56:00) Pulse Pressure: 37 mm Hg (05/08/25 06:00:00) Oxygen Saturation: 100 % (05/08/25 06:00:58) Liters per Minute: 3 L/min (05/07/25 20:08:00) Liters per Minute: 3 L/min (05/07/25 20:08:00) Mode of Delivery (Oxygen): Room air (05/08/25 06:00:00) ? Intake/Output? 05/08 02:30 05/08 07:00 05/07 07:00 05/06 07:00 05/05 07:00 ?? 05/08 06:09 05/08 06:09 05/08 06:59 05/07 06:59 05/06 06:59 Intake ?100 ?0 ?100 ?0 ?0 Output ?0 ?0 ?0 ?0 ?0 Net Total ?100 ?0 ?100 ?0 ?0 ? Physical Exam Constitutional: Alert, in no distress. Mental Status: Oriented to person, place and time. Respiratory: Clear to auscultation. No wheezing, rales or rhonchi. Cardiovascular: S1 S2 regular. No murmurs, rubs or gallops. Gastrointestinal: Abdomen soft, non-tender, non-distended. Neurologic: No focal neurological deficits. Moves all extremities spontaneously. Musculoskeletal: No gross deformities. Assessment/Plan ??39-year-old female with past medical history of HTN, chronic pain, ESRD 2/2 hypertensive nephrosclerosis on intermittent hemodialysis (TTS) with left upper extremity AV fistula, HFpEF and??recent admission (05/03) for hyperkalemia in the setting of missed dialysis, presented to the ED originally for acute on chronic back pain, abdominal pain, chest pain, pain in left arm. Pt was found to have severe hyperkalemia with significant EKG changes requiring emergent dialysis.??On presentation patientreported that she had missed her last 2 sessions of dialysis and was last dialyzed several days ago. ?? Neuro/HEENT Seizure disorder?? Chronic Low Back Pain?? Pt's home regimen for chronic pain consists of??oxycodone 15 mg p.o.??every 4 hours??as needed for pain. Pt's home regimen for seizure disorder consists of??Keppra??500 mg p.o. daily and 750 mg on dialysis days ?? Plan: -Dilaudid 0.5mg q4hrs for chronic pain?? -Keppra 750mg on Dialysis days, non dialysis days 500mg qD? Cardiovascular #Hypertension (I10) HFpEF Home HTN regimen:??Coreg 25 mg p.o. twice a day, Nifedipine 60 mg p.o. twice a day, minoxidil 7.5 mg daily While in MICU pt became hypotensive, tachycardiac and was started on Levophed which was shortly weaned off?? Pt appears euvolemic on exam Plan: -Holding HTN regimen given pt's hypotension, can restart in AM post dialysis?? - conveyor monitor - EKG PRN ?? Pulmonary Pulmonary Hypertension -Continue home Sildenafil ?? Gastroenterology #GERD (K21.9) Continue Pantoprazole 40 mg daily in AM? Plan: - Continue Home PPI?? - Monitor LFTs daily - NPO except for medications ?? Renal ESRD 2/2 Hypertensive Nephrosclerosis on HD?? #Hyperkalemia (E87.5) Hyperkalemia in setting of recent missed dialysis sessions?? Found to have severe hyperkalemia w/ significant EKG changes and concern for hemodynamic instability?? Despite hyperkalemia management pt w/ persistent wide complex tachycardia?? Pt??S/p Insulin, calcium, dextrose in MICU? Plan: -4 hours HD?? -Obtain Lytes 2 hours post dialysis session?? - Follow up on kidney function -q4hr lytes?? - Avoid nephrotoxins - Renally dose medications - Monitor I/O ?? MSK/Integ No active/acute issues. ?? Heme/Onc Anemia of chronic disease ?? Plan: - Daily CBC - Monitor for any signs/symptoms of bleeding - Transfuse if Hb <7 ?? Endocrine No active/acute issues. ? Plan: - Blood sugar level goal 140-180 - POC Glucose??Q6H; blood sugar level goal 140-180 - Hypoglycemia measures ?? Infectious Disease No active/acute issues. Plan: - Trend fever curve and CBC daily - Monitor for any signs/symptoms of infection ?? Quality Measures Code:??Full Code (Confirmed)?? DVT prophylaxis:??Heparin 5000U TID SC?? Diet:??Renal Diet?? Ongoing medical necessity: Hyperkalemia w/ emergent dialysis? Patient seen and discussed with attending physician Dr. Vega MD Internal Medicine, PGY2 ? Histories Allergies Allergies ?(Active and Proposed Allergies Only) hydrOXYzine? (Severity: Unknown severity, Onset: Unknown) ?Comments: tolerates diphenhydramine Other Environmental Allergy? (Severity: Unknown severity, Onset: [...] (Severity: Unknown severity, Onset: Unknown) ?Reactions: Anaphylaxis levoFLOXacin? (Severity: Unknown severity, Onset: Unknown) ?Reactions: [...] Swelling of throat, C/O: itching, hives ? Past Medical History/Problem List Active Problems(28) (HFpEF) heart failure with preserved [...] Tricuspid regurgitation UTI (urinary tract infection) ? Past Surgical History delivery only; including care: 12/03/12 Parathyroidectomy ? Social History Alcohol Details:??Use: Never. Details:??Use: Never. Exercise Details:??Self assessment: Fair condition. Home/Environment Details:??Living situation: Home/Independent. Nutrition/Health Details:??Diet: Renal. Sexual Details:??Gender identity: Female. ??Self described orientation: Straight or heterosexual. ??Preferred pronoun: She/Her/Hers. Details:??Gender identity: Female. ??Self described orientation: Straight or heterosexual. ??Preferred pronoun: She/Her/Hers. Substance Abuse Details:??Use: Never. Details:??Use: Never. Tobacco Details:??Use: Never (less than 100 in lifetime). Details:??Never smoker, Other: Pt. states she has never been a smoker. Electronic Cigarette/Vaping Details:??Electronic Cigarette Use: Never. ? Family History Mother: Diabetes mellitus; Diabetes mellitus type II; Hypertension Father: Hypertension Mat. Grandmother: Hypertension Pat. Grandmother: Hypertension Pat. Grandfather: Congestive heart failure; Hypertension ? Medications Home Medications Acetaminophen (acetaminophen 325 mg oral tablet)??975 [...] DAILY AND 1 TABLET WITH A SNACK Fluconazole (fluconazole 150 mg oral tablet)??1 tab(s) 150 Milligram By Mouth Once take it if symptoms does not improve after 4 days Fluticasone-Salmeterol (Advair HFA 230 mcg / 21 [...] 40 Milligram By Mouth Dailyfor 90 Days Sildenafil (sildenafil 20 mg oral tablet)??1 tab(s) 20 Milligram By Mouth 3 times a day ? Inpatient Medications Medications (8) Active SCHEDULED: (1) Levetiracetam 250 mg Tablet (levETIRAcetam 250 mg oral tablet) ??750 mg, By Mouth, Daily in AM CONTINUOUS: (1) NORepinephrine 4mg / 250mL NaCL 4 mg (Levophed 4 mg / NaCL 0.9% 250 mL 4 mg) ??4 mg 250 mL, IV Infusion PRN: (6) Dextrose Inj Syringe (Dextrose 50% Inj Syringe (25Gm)) ??12.5 Gm, IV Push Slowly, Every 20 minutes Dextrose Inj Syringe (Dextrose 50% Inj Syringe (25Gm)) ??25 Gm, IV Push Slowly, Every 15 minutes Glucagon 1 mg Inj (Glucagon Inj) ??1 mg, Intramuscular, Once Glucose 40% Gel (15 Gm) (Glucose Gel) ??15 Gm, By Mouth, Every 20 minutes Glucose 40% Gel (15 Gm) (Glucose Gel) ??30 Gm, By Mouth, Every 20 minutes HYDROmorphone 0.5 mg/0.5 mL Inj Syringe (HYDROmorphone Inj) ??0.5 mg 0.5 mL, IV Push Slowly, Every 4 hours ? Results Recent Labs BLOOD COUNT & DIFF WBC 8.7 k/mm3 ()?? 05/07/2025 23:22 RBC 3.25 m/mm3 (Low)?? 05/07/2025 23:22 Hgb 9.7 Gm/dL (Low)?? 05/07/2025 23:22 Hct 31.4 % (Low)?? 05/07/2025 23:22 MCV 96.6 femtoliters ()?? 05/07/2025 23:22 MCH 29.8 pg ()?? 05/07/2025 23:22 MCHC 30.9 Gm/dL (Low)?? 05/07/2025 23:22 Platelet Count 168 k/mm3 ()?? 05/07/2025 23:22 RDW-SD 54.4 femtoliters (High)?? 05/07/2025 23:22 MPV 10.1 femtoliters ()?? 05/07/2025 23:22 Nucleated RBC (Automated) 0.0 #/100 WBC'S ()?? 05/07/2025 23:22 Abs. NRBC 0.0 k/mm3 ()?? 05/07/2025 23:22 Hemoglobin (POC) POC Cartridge 10.5 Gm/dL (Low)?? 05/08/2025 01:17 Hematocrit (POC) POC Cartridge 31 % (Low)?? 05/08/2025 01:17 ?? BLOOD GAS pH Venous (POC) POC Cartridge 7.20 (Low)?? 05/08/2025 01:17 pCO2 Venous (POC) POC Cartridge 37.6 mm Hg (Low)?? 05/08/2025 01:17 pO2 Venous (POC) POC Cartridge 33 mm Hg (Low)?? 05/08/2025 01:17 Est Bicarbonate (POC) POC Cartridge 14.7 mmol/L (Low)?? 05/08/2025 01:17 % O2 Sat Venous (POC) POC Cartridge 51 ()?? 05/08/2025 01:17 Base Excess (POC) POC Cartridge NEGATIVE 13 ()?? 05/08/2025 01:17 Specimen Type - Blood Gas VENOUS ()?? 05/08/2025 01:17 ?? CARDIAC High Sensitivity Troponin (HSTnT) 125 ng/L (Critical)?? 05/08/2025 01:19 ?? CHEM GENERAL Sodium 136 mmol/L ()?? 05/08/2025 01:19 Potassium 9.1 mmol/L (Critical)?? 05/08/2025 01:19 Chloride 93 mmol/L (Low)?? 05/08/2025 01:19 Bicarbonate Level 17 mmol/L (Low)?? 05/08/2025 01:19 Anion Gap 26 mmol/L (High)?? 05/08/2025 01:19 Sodium (POC) POC Cartridge 132 mmol/L (Low)?? 05/08/2025 01:17 Potassium (POC) POC Cartridge 8.3 mmol/L (Critical)?? 05/08/2025 01:17 Glucose Level 221 mg/dL (High)?? 05/08/2025 01:19 Glucose (POC) POC Cartridge 190 (High)?? 05/08/2025 01:17 Glucose, POC 55 mg/dL (Low)?? 05/08/2025 05:05 BUN 109 mg/dL (High)?? 05/08/2025 01:19 Creatinine-Blood 12.96 mg/dL (Critical)?? 05/08/2025 01:19 Estimated GFR Creatinine 3 ML/MIN/1.73 M2 ()?? 05/08/2025 01:19 Calcium 9.6 mg/dL ()?? 05/08/2025 01:19 Ionized Calcium (POC) POC Cartridge 0.93 mmol/L (Critical)?? 05/08/2025 01:17 Magnesium 3.0 mg/dL (High)?? 05/08/2025 01:19 ?? URINE OTHER Est Creatinine Clearance 5.29 mL/min ()?? 05/08/2025 02:15 ? Electronically Signed on 05/08/25 06:17 AM Sneha Fowler MD Electronically Signed on 05/08/25 06:31 AM Sneha Fowler MD Electronically Signed on 05/10/25 04:16 PM Ashlee Hoffman MD, Regulo Bacon EKG study * Event Display: EKG Authored Date: * Event Display: ECG 12-Lead Authored Date: Please click on pdf link to open report * Event Display: ECG 12-Lead Authored Date: Ventricular Rate: 63 BPM Atrial Rate: 63 BPM P-R Interval: 160 ms QRS Duration: 92 ms Q-T Interval: 470 ms QTC Calculation(Bazett): 480 ms P [place]: 80 degrees R [place]: 37 degrees T [place]: 208 degrees Normal sinus rhythm Left ventricular hypertrophy with repolarization abnormality Prolonged QT Abnormal ECG Confirmed by YAZ GREENBERG ([id number]) on 05/09/2025 3:04:35 PM [place]: YAZ GREENBERG * Event Display: ECG 12-Lead Authored Date: Please click on pdf link to open report * Event Display: ECG 12-Lead Authored Date: Ventricular Rate: 149 BPM Atrial Rate: 52 BPM P-R Interval: 40 ms QRS Duration: 162 ms Q-T Interval: 342 ms QTC Calculation(Bazett): 538 ms R [place]: 251 degrees T [place]: 196 degrees Wide QRS tachycardia Hyperkalemia Abnormal ECG When compared with ECG of 08-May-2025 00:25, Heart rate has increased Confirmed by CORY COFFEY MD ([id number]) on 05/09/2025 8:14:16 AM [place]: CORY COFFEY MD * Event Display: ECG 12-Lead Authored Date: Please click on pdf link to open report * Event Display: ECG 12-Lead Authored Date: Ventricular Rate: 127 BPM Atrial Rate: 127 BPM P-R Interval: 140 ms QRS Duration: 100 ms Q-T Interval: 366 ms QTC Calculation(Bazett): 531 ms P [place]: 43 degrees R [place]: -53 degrees T [place]: 212 degrees Wide QRS tachycardia Sine wave EKG - consider hyperkalemia or slow ventricular tchycardia Hyperkalemia Abnormal ECG When compared with ECG of 07-May-2025 19:07, Significant changes have occurred Confirmed by CORY COFFEY MD ([id number]) on 05/09/2025 8:11:53 AM [place]: CORY COFFEY MD Procedure * Event Display: Cardiac Rhythm Strips Authored Date: * Event Display: Cardiac Rhythm Strips Authored Date: Hospital Progress note * Lita Sofia RN: PERFORM, SIGN, VERIFY, SIGN, MODIFY Event Display: Progress Note Hospital Authored Date: Patient: HIMA MORRIS Age: 39 years Sex: Female : 1985 Associated Diagnoses: None Author: Lita Sfoia RN Findings Problem Related to Alteration in Comfort 05/11/2025 12:19 EST Alteration in Comfort Related to Other: chronic pain Goals & Outcomes: Comfort Pt will report acceptable level of comfort & pain control, Pt will state importance of adhering to pain strategy regime, Pt will demonstrate necessary skills to manage pain, Non-verbal indicators will indicate comfort/pain control Interventions Implemented: Comfort Assess pain using appropriate pain scale/tools, Assess aggravating factors & prevent them accordingly, Assess alleviating factors & promote them accordingly BH Goals/Interventions, Comfort Yes Comfort, Problem Start 05/11/2025 1:37 Reviewed plan with, Comfort Patient Patient Progression, Comfort Pt progressing according to plan Comfort, Problem Ongoing Yes . Evaluation Pt A&Ox4, able to verbalize needs. Denies SOB, Chest pain N/V/D. C/O pain in her left arm. uponassessment pt is able to ambulate on own, abdomen is soft and nontender, lungs are clear, no edema is noted. Pt was medicated per mar, and given PRN oxy Q4, and benedryl Q6. Pt skin is intact, on tele NS, and on 3L NC which according to her is baseline at home. Provider is removing the Q6 POC. Pt bed is locked and low, rails are up, call larsen is with pt, pt safety is maintained. . Discharge Information Case Management Discharge Plan : Case Management Discharge Plan Data 05/09/2025 10:37 EST Discharge VNA/Hospice/Home Care [facility] [phone] Rehabilitation Discharge : Rehab Discharge Index 05/10/2025 15:53 EST Walker: distance 20-50 05/09/2025 10:09 EST Comments on treatment indicated 39 F p/w severe hyperkalemia. Admitted for HD and acute on chronic LBP. PT f/u 1-2 more sessions for transfers, gait assessment. Anticipate HWS once medically cleared. Distance pt will ambulate 50ft Full chart review completed Yes Hospital course Hospital course Other findings Pt is a low complex eval as circumstances leading to hosp impact POC and functional mob. Plan of care PT Gait training, Transfer training, Therapeutic exercise, Functional Activities, Balance training, Neuromuscular education Electronically Signed on 05/11/25 12:28 PM Lita Sofia RN * Lita Sofia RN: PERFORM Event Display: Progress Note Hospital Authored Date: Pt discharged, pw reviewed with pt, she did refuse to sign the discharge paperwork. Pt left via wheelchair with SO. Was given her oxy prior to discharge. Electronically Signed on 05/11/25 04:12 PM Lita Sofia RN * Vishal MURPHY, Mechelle: MODIFY, PERFORM Event Display: Progress Note Hospital Authored Date: Patient: ??HIMA MORRIS ? Age:??39 Years?Sex:??Female?:??1985?LOC:??[facility]?? Attending:??Jeremiah AKINS, Ye Bui Admission Date: 05/08/2025 ?? Subjective Patient seen and examined; events noted.?? No complaints to offer this morning. ? Objective Vital Signs (last 24 hrs) ?Last Charted Heart Rate Peripheral?57 bpm ??(MAY 11 04:48) Resp Rate?18 br/min ??(MAY 11 05:44) SBP?137 mm Hg ??(MAY 11 04:48) DBP?61 mm Hg ??(DEC 10 04:48) SpO2?100 % ??(DEC 10 04:48) Weight?98.2 kg ??(DEC 10 06:48) Height?165 cm ??(DEC 10 04:48) Intake?? Output?? Oral Fluids: 240 mL (12:00) Dialysis Negative Balance: 2700 mL (20:36) ?? Intake/Output?? 05/08 02:30 12 07:00 05/10 07:00 1208 07:00 12 07:00 ?? 05/11 07:05 05/11 07:05 05/11 06:59 05/10 06:59 05/09 06:59 Intake ?700 ?0 ?480 ?120 ?0 Output ?06633 ?0 ? 2700 ?0 ? 8500 Net Total ? -57091 ?0 ?-2220 ?120 ?-8500 Urine Count ?1 ?0 ?0 ?0 ?1 ? Physical Exam General: NAD, AAOx4 HEENT: NCAT, MMM Neck: no JVD, neck supple Cardio: normal S1 snd S2, no MRG, RRR Resp: CTAB Abdo:??NT, ND Extremities: No peripheral edema Skin: No rashes or other abnormalities Neuro: Grossly intact ?? CHEM GENERAL Sodium 132 mmol/L (Low)?? 05/11/2025 00:23 Potassium 4.5 mmol/L ()?? 05/11/2025 00:23 Chloride 92 mmol/L (Low)?? 05/11/2025 00:23 Bicarbonate Level 24 mmol/L ()?? 05/11/2025 00:23 Anion Gap 16 mmol/L ()?? 05/11/2025 00:23 Glucose Level 110 mg/dL (High)?? 05/11/2025 00:23 Glucose, POC 131 mg/dL (High)?? 05/11/2025 06:27 BUN 23 mg/dL (High)?? 05/11/2025 00:23 Creatinine-Blood 3.90 mg/dL (High)?? 05/11/2025 00:23 Estimated GFR Creatinine 14 ML/MIN/1.73 M2 ()?? 05/11/2025 00:23 Calcium 8.8 mg/dL ()?? 05/11/2025 00:23 ?? URINE OTHER Est Creatinine Clearance 17.57 mL/min ()?? 05/11/2025 01:24 ?? No qualifying data available ? Assessment/Plan Ms. Morris is a 39-year-old female with a history of ESRD secondary to hypertensive renal disease who dialyzes on a??T/T/S schedule at??[facility]??via a L upper arm AV Fistula.?? Pastmedical history is significant for HTN,??history of??large circumferential pericardial effusion (s/p pericardial drain placement for 20 days Jun-Jul 2023), chronic systolic heart failure with EF 45-50%, chronic??back pain with chronic narcotic dependence, interstitial lung disease, pulmonary hypertension, severe tricuspid regurgitation,??and mood disorder.?? She has been??hospitalized multiple times in recent months, with some admissions to??[facility] but also admissions to [facility], [facility], [facility],??and [facility].?? She??presented??to [facility] on??05/08 after missing two consecutive routine outpatient HD appointments, and was found to have hyperkalemia with a potassium of 9.1 and and EKG showing sine??wave.?? She was brought to the ICU and dialyzed emergently.? 1. ESRD on HD - schedule: T/T/S at [facility] - access: L upper arm AVF [...] algorithm atoutpatient dialysis ?? 2. Hyperkalemia - with sine wave on EKG - in the setting of missing outpatient HD ?? Plan - HD??on T/T/S schedule while admitted - continue home BP meds - will discuss outpatient management of high output AVF with transplant surgery; pt is cleared for D/C from renal perspective ?? Case discussed with Dr. Gutierrez. Thank you for allowing us to participate in your patient's care. ? Mechelle Rodgers [facility]- [facility]?? Electronically Signed on 05/11/25 12:24 PM Vishal MURPHY, Du Bowles MD I: PERFORM Event Display: Progress Note Hospital Authored Date: [id number] ?? I reviewed the patient's history, examined the patient, and confirmed the above findings as documented by the fellow/resident/medical student/CHIEF MARKETING OFFICER. I personally formulated the essential elements of theassessment and plan noted above. Dr. Gutierrez Electronically Signed on 05/11/25 12:24 PM Du Gutierrez MD, I * Annamarie Armenta RN: PERFORM, SIGN, VERIFY Event Display: Progress Note Hospital Authored Date: [id number] Patient: HIMA MORRIS Age: 39 years Sex: Female : 1985 Associated Diagnoses: None Author: Annamarie Armenta RN Findings Problem Related to Alteration in Comfort : Alteration in Comfort/new 05/11/2025 1:00 EST Alteration in Comfort Related to Other: chronic pain Goals & Outcomes: Comfort Pt will report acceptable level of comfort & pain control, Pt will state importance of adhering to pain strategy regime, Pt will demonstrate necessary skills to manage pain, Non-verbal indicators will indicate comfort/pain control Interventions Implemented: Comfort Assess pain using appropriate pain scale/tools, Assess aggravating factors & prevent them accordingly, Assess alleviating factors & promote them accordingly BH Goals/Interventions, Comfort Yes Comfort, Problem Start 05/11/2025 1:37 Reviewed plan with, Comfort Patient Patient Progression, Comfort Plan Initiation Comfort, Problem Ongoing Yes . Evaluation Pt is alert & oriented x4. Pt arrived back on the floor from HD a little after 21:00. Pt c/o itchiness s/p HD, PRN Benadryl administered. Pt requested for provider to assess her at bedside d/t ongoing itchiness despite Benadryl and possible allergic reaction on stomach . JEFFREY Sheikh made aware. No rash on abdomen noted, just scabbed over abrasion (from tele sticker - per report). Image sent to JEFFREY Sheikh, per provider; if IV Benadryl didn't work, we can try PO. CHIEF MARKETING OFFICER made aware that pt is allergic to PO beanery; per CHIEF MARKETING OFFICER, no extra doses of IV Benadryl at this time. Pt continues to c/o 8/10 pain, PRN oxycodone administered, pending effect. VSS on 3L nasal cannula - pt reports this as baseline. Tele monitoring continued, pt tracing SB/NSR. Renal diet. Blood sugar checks q 6 per order. Oliguric. LBM 05/10. L AVF +thrill/+bruit. Besides scabbed over abrasion on stomach, skin intact. POC explained. Hourly rounds. Safety maintained. 01:42. Electronically Signed on 05/11/25 01:44 AM Annamarie Armenta RN Note * Lita Sofia RN: PERFORM Event Display: Discharge/Transfer Note Hospital Authored Date: [id number] Nursing Discharge Note Entered On: 05/11/2025 16:50 EST Performed On: 05/11/2025 16:49 EST by Lita Sofia RN Nursing Discharge Note 2 Discharge Level of Care at Discharge : Home/[facility] Discharge Time : 05/11/2025 16:49 EST Discharge VNA/Hospice/Home Care([id number]) : [facility] [phone] Sanitation Worker Cleaning Equipment Utilized : No Patient Left Unit Via : Wheelchair Patient Accompanied Off Unit with : Significant other DC Instructions Provided & Signed by Pt : Yes Patient Understands D/C Instructions : Yes Patient Instructions Discharge Signed : No Instructions for Discharge Comments : pt refused to sign wittnessed by second RN Did Pt have Specialty Bed or Wound Vac : No Lita Sofia RN - 05/11/2025 16:49 EST Electronically Signed on 05/11/25 04:49 PM Lita Sofia RN, MD, Noor: PERFORM Event Display: Discharge/Transfer Note Hospital Authored Date: [id number] Patient: ??HIMA MORRIS ? Age:??39 Years?Sex:??Female?:??1985?LOC:??[facility]?? Patient Information Discharge Location: S1 Primary Care Physician: Not on Staff, PCP Admit Date/Time: 05/08/2025 02:30 Discharge Disposition Discharge Disposition: Home: No Services Discharge Diagnosis Chest pain ([id number]) General medical ([id number]) Hyperkalemia (E87.5) _ Discharge Medications Acetaminophen (acetaminophen 325 mg [...] DAILY AND 1 TABLET WITH A SNACK Fluconazole (fluconazole 150 mg oral tablet)??1 tab(s) 150 Milligram By Mouth Once take it if symptoms does not improve after 4 days Fluticasone-Salmeterol (Advair HFA 230 mcg / 21 [...] 40 Milligram By Mouth Dailyfor 90 Days Sildenafil (sildenafil 20 mg oral tablet)??1 tab(s) 20 Milligram By Mouth 3 times a day ? Discharge Medications Unchanged Acetaminophen (acetaminophen 325 [...] DAILY AND 1 TABLET WITH A SNACK. Fluconazole (fluconazole 150 mg oral tablet)1 tab(s) Oral once. take it if symptoms does not improve after 4 days. Refills: 0. Fluticasone-Salmeterol (Advair HFA 230 mcg / 21 [...] Oral Daily for 90 Days. Refills: 4. Sildenafil (sildenafil 20 mg oral tablet)1 tab(s) Oral 3 times a day. Allergies Allergies ?(Active and Proposed Allergies Only) hydrOXYzine? (Severity: Unknown severity, Onset: Unknown) ?Comments: tolerates diphenhydramine Other Environmental Allergy? (Severity: Unknown severity, Onset: [...] (Severity: Unknown severity, Onset: Unknown) ?Reactions: Anaphylaxis levoFLOXacin? (Severity: Unknown severity, Onset: Unknown) ?Reactions: [...] Type: Return With: Antonio Sellers MD Where: [facility] [address] [place] [address]- Status: Pending Friday2025 10:40 AM EST ?? Type: Return With: Faizan Morel MD Where: [facility] [address] [place] [address]- Status: Pending Hospital Course Patient is a 39-year-old female with PMH of HTN, ESRD 2/2 hypertensive nephrosclerosis on intermittent hemodialysis (TTS), HFpEF, chronic pain, and recent admission for hyperkalemia in setting of missed dialysis who presented to the ED for acute on chronic back pain, abdominal pain, chest pain and left arm where her fistula is. She is admitted for emergent dialysis, management of hyperkalemia andacute on chronic low back pain. s/p HD Potassium improved. Required MICU admission for hyperkalemiamanagement. No cardiovascular symptoms. currently doing well, leyva shave chronic pain and she is on pain meds regimen- will need to follow up out patient,. DVT ruled out on Left UE by doppler US fistula working. will need to follow up with out patient renal/ vascular teams. patient in agreement withdischarge plan, ? Objective Assessment and Plan ? Vital Signs?? Temperature: 98.3 DegF (05/11/25 08:00:00) Temperature Route: Oral (05/11/25 08:00:00) Pulse Rate: 63 bpm (05/11/25 10:05:00) Respiratory Rate: 16 br/min (05/11/25 10:04:00) Vented: No (05/10/25 20:03:00) Systolic Blood Pressure:??164 mm Hg??High (05/11/25 10:05:00) Diastolic Blood Pressure: 66 mm Hg (05/11/25 10:05:00) Blood pressure sites: Leg, left (05/11/25 08:00:00) Mean Arterial Pressure: 86 mm Hg (05/11/25 04:48:00) Pulse Pressure: 98 mm Hg (05/11/25 08:00:00) Oxygen Saturation: 98 % (05/11/25 08:00:00) Liters per Minute: 2 L/min (05/11/25 08:00:00) Mode of Delivery (Oxygen): Nasal cannula (05/11/25 08:00:00) Early Warning Score: 1 (05/11/25 10:06:05) ? . Physical Exam Head EENT: Normocephalic. Extraocular muscles intact. Moist mucous membranes.?? Neck: Supple. No JVD. Respiratory: Clear to auscultation. No wheezing or crackles. No use of accessory muscles. Cardiovascular: S1S2 regular.?? Continuous murmur??in the apical and aortic region Gastrointestinal: Abdomen soft, non-tender, non-distended. Normal bowel sounds. Extremities:??Left AV fistula, tortuous, thrill present Neurologic: AAOx3, Speech normal. Moves all extremities; No focal neurological deficits. Skin: No rash. Pending Results Add On Lab Order ordered on 05/08/2025 Follow-Up Appointments Added Follow Up ?Time Frame ?Comments Not on Staff, PCP?1 to 2 weeks Patient Instructions need to follow up out patient dialysis sessions.?? follow up with PCP for pain meds adjustment. \ continue home meds??as before.?? Post Discharge Care Discharge ?05/11/25 13:48:00 EST ?Order Comment:?? Discharge Prescriptions ?ePrescribed, 05/11/25 13:48:00 EST ?Order Comment:?? Home Health Face to Face ^HomeHealthFTF Results Discharge Labs BLOOD COUNT & DIFF WBC 8.2 k/mm3 ()?? 05/08/2025 17:25 RBC 2.85 m/mm3 (Low)?? 05/08/2025 17:25 Hgb 8.7 Gm/dL (Low)?? 05/08/2025 17:25 Hct 26.6 % (Low)?? 05/08/2025 17:25 MCV 93.3 femtoliters ()?? 05/08/2025 17:25 MCH 30.5 pg ()?? 05/08/2025 17:25 MCHC 32.7 Gm/dL (Low)?? 05/08/2025 17:25 Platelet Count 142 k/mm3 (Low)?? 05/08/2025 17:25 RDW-SD 51.0 femtoliters (High)?? 05/08/2025 17:25 MPV 10.1 femtoliters ()?? 05/08/2025 17:25 Nucleated RBC (Automated) 0.0 #/100 WBC'S ()?? 05/08/2025 17:25 Abs. NRBC 0.0 k/mm3 ()?? 05/08/2025 17:25 Hemoglobin (POC) POC Cartridge 10.5 Gm/dL (Low)?? 05/08/2025 01:17 Hematocrit (POC) POC Cartridge 31 % (Low)?? 05/08/2025 01:17 ?? BLOOD GAS pH Venous (POC) POC Cartridge 7.20 (Low)?? 05/08/2025 01:17 pCO2 Venous (POC) POC Cartridge 37.6 mm Hg (Low)?? 05/08/2025 01:17 pO2 Venous (POC) POC Cartridge 33 mm Hg (Low)?? 05/08/2025 01:17 Est Bicarbonate (POC) POC Cartridge 14.7 mmol/L (Low)?? 05/08/2025 01:17 % O2 Sat Venous (POC) POC Cartridge 51 ()?? 05/08/2025 01:17 Base Excess (POC) POC Cartridge NEGATIVE 13 ()?? 05/08/2025 01:17 Specimen Type - Blood Gas VENOUS ()?? 05/08/2025 01:17 ? CARDIAC High Sensitivity Troponin (HSTnT) 125 ng/L (Critical)?? 05/08/2025 01:19 ? CHEM GENERAL Sodium 132 mmol/L (Low)?? 05/11/2025 00:23 Potassium 4.5 mmol/L ()?? 05/11/2025 00:23 Chloride 92 mmol/L (Low)?? 05/11/2025 00:23 Bicarbonate Level 24 mmol/L ()?? 05/11/2025 00:23 Anion Gap 16 mmol/L ()?? 05/11/2025 00:23 Sodium (POC) POC Cartridge 132 mmol/L (Low)?? 05/08/2025 01:17 Potassium (POC) POC Cartridge 8.3 mmol/L (Critical)?? 05/08/2025 01:17 Glucose Level 110 mg/dL (High)?? 05/11/2025 00:23 Glucose (POC) POC Cartridge 190 (High)?? 05/08/2025 01:17 Glucose, POC 131 mg/dL (High)?? 05/11/2025 06:27 BUN 23 mg/dL (High)?? 05/11/2025 00:23 Creatinine-Blood 3.90 mg/dL (High)?? 05/11/2025 00:23 Estimated GFR Creatinine 14 ML/MIN/1.73 M2 ()?? 05/11/2025 00:23 Calcium 8.8 mg/dL ()?? 05/11/2025 00:23 Ionized Calcium (POC) POC Cartridge 0.93 mmol/L (Critical)?? 05/08/2025 01:17 Phosphorus 5.0 mg/dL (High)?? 05/09/2025 09:40 Magnesium 2.1 mg/dL ()?? 05/09/2025 09:40 ? HEME OTHER Hold Lavender Top SPECIMEN DISCARDED AFTER 24 HOURS. ()?? 05/08/2025 01:19 Hold Blue Top SPECIMEN DISCARDED AFTER 4 HOURS. ()?? 05/07/2025 23:22 ?? MISC. CHEMISTRY Hold Pham Top SPECIMEN DISCARDED AFTER 1 WEEK ()?? 05/07/2025 23:21 ? URINE OTHER Est Creatinine Clearance 17.57 mL/min ()?? 05/11/2025 01:24 ? VIROLOGY COVID-19 PCR Specimen Source NASAL ()?? 05/08/2025 09:21 COVID-19 PCR Result NEGATIVE ()?? 05/08/2025 09:21 ? _45 ??minutes spent on discharge Electronically Signed on 05/11/25 01:51 PM Duke AKINS, Noor * Kimberlyn MCKEON, Lita: Azra Carbone RN: MODIFY Event Display: Patient Education/Instruction Authored Date: [id number] Inpatient Adult Discharge Instructions. [address] [address] Name: HIMA MORRIS : 1985?? Visit: 05/08/2025 02:30?? Current Date: 05/11/2025 14:27 ?? Account: [id number]?? Inpatient Adult Discharge Instructions We would like [...] and their families. Surveys are administered by [employer] ?? If further treatment with your primary care physician or another doctor is recommended, it is important for you to keep the appointment. Call your primary care physician or return to the Emergency Department immediately if your condition worsens, fails to improve, or new symptoms develop. If you need to find a doctor, you can call [facility] [email or web address] for a referral at [phone] or toll free at [phone] Gamer ([phone]) or log in to [email or web address] ?? [facility], in keeping with [facility] guidance, no longer requires face masks for [...] a health care [place] of your choosing. [employer] is a website that allows you to [...] upon your request. You can enroll at [email or web address] or register d uring your next office visit. You have been discharged from [facility], Patient Care Unit: S1??. If you have any questions regarding these instructions, including results of studies pending, afteryou leave, please call us and we will be happy to assist you 23/12. [facility] Your Care Team Attending Physician Duke AKINS, Noor?? Consulting Providers Duke AKINS, Noor?? Discharging Providers Duke AKINS, Noor Reason for Your Visit hyperkalemia, ekg changes?? Your Diagnosis Chest pain General medical Tests Performed Below is a partial list of the tests performed during your hospitalization. You may have had other tests and procedures not included in this list. Please discuss all test results with your provider. BASE EXCESS POC CARTRIDGE Basic Metabolic Panel BUN CALCIUM IONIZED POC CART Calcium Level CBC COVID-19 (2019 Novel Coronavirus) PCR Creatinine Electrolytes Glucose Level GLUCOSE POC GLUCOSE POC CARTRIDGE HEMATOCRIT POC CARTRIDGE HEMOGLOBIN POC CARTRIDGE High Sensitivity Troponin T HOLD BLUE TUBE HOLD PHAM TUBE HOLD LAVENDER TUBE Magnesium Level Mg Level Phosphorus Level POTASSIUM POC CARTRIDGE SODIUM POC CARTRIDGE VBG POC CARTRIDGE Doppler Ext Upper Venous Left (US) XR Chest Portable Add On Lab Order?? BUN?? Base Excess (Lab) POC Cartridge (BASE EXCESS POC CARTRIDGE)?? Basic Metabolic Panel?? CBC?? COVID-19 (2019 Novel Coronavirus) PCR?? Calcium Level?? Creatinine?? Electrolytes?? Glucose (Lab) POC Cartridge (GLUCOSE POC CARTRIDGE)?? Glucose Level?? Glucose POC?? Hematocrit (Lab) POC Cartridge (HEMATOCRIT POC CARTRIDGE)?? Hemoglobin (Lab) POC Cartridge (HEMOGLOBIN POC CARTRIDGE)?? High??Sensitivity??Troponin T (High Sensitivity Troponin T)?? Hold Blue Top Tube (HOLD BLUE TUBE)?? Hold Pham Top Tube (HOLD PHAM TUBE)?? Hold Lavender Top Tube (HOLD LAVENDER TUBE)?? Ionized Calcium(POC) POC Cartridge (CALCIUM IONIZED POC CART)?? Magnesium Level (Mg Level)?? Phosphorus Level?? Potassium (Lab) POC Cartridge (POTASSIUM POC CARTRIDGE)?? Sodium (Lab) POC Cartridge (SODIUM POC CARTRIDGE)?? US Doppler Ext Upper Venous Left (Doppler Ext Upper Venous Left (US))?? VBG (Lab) POC Cartridge (VBG POC CARTRIDGE)?? Chest Portable (XR Chest Portable)?? Primary Care Provider Kassie Reyna MD? Advance Directive Health Care Proxy on File Yes - Health Care Proxy Discharge Vitals Temperature: 98.3 DegF Height: 165 cm Pulse Rate: 63 bpm Weight: 98.2 kg Respiratory Rate: 16 br/min Body Mass Index: 23.51 kg/m2 Systolic Blood Pressure:??164 mm Hg??High Body surface area: 1.71 Diastolic Blood Pressure: 66 mm Hg ?? Oxygen Saturation: 98 % ?? Studies Pending All studies ordered during this hospital stay have been completed unless listed below. Please discuss all pending results with your provider listed above in these instructions. ?? Add On Lab Order?? Basic Metabolic Panel?? Magnesium Level (Mg Level)?? What to do next Instructions From Your Doctor need to follow up out patient dialysis sessions.?? follow up with PCP for pain meds adjustment. \ continue home meds??as before.? Orders? 05/11/25 13:48:00 EST?? Prescriptions??, ??05/11/25 13:48:00 EST?? Scheduled Follow-Up Appointments Friday2025 10:40 AM EST ?? Type: Return With: Adriel AKINS, Faizan Carreon Where: [facility] [address] [place] [address]- Status: Pending You Need to Schedule the Following Appointments Follow Up with??Not on Staff, PCP When:Within 1 to 2 weeks Discharge Medications HIMA MORRIS :1985 Visit Date:05/08/2025 Medications: Please continue your medications until treatment is completed or stopped by your provider. Medications not listed below should be discontinued. Discuss any questions related to medications with your provider. What How Much When Why Instructions Next Dose Unchanged Acetaminophen (acetaminophen 325 mg oral tablet) 975 Milligram Oral Every 6 hours Ordering Physician: Noelle Clemente NP 05/11 9pm Unchanged Albuterol (Albuterol (Eqv-Ventolin HFA) 90 mcg/ inh inhalation aerosol) 2 puff(s) Inhalation Every 6 hours Asthma Duration: 30 Days Ordering Physician: Natalio Haley MD 05/11 9pm Unchanged Calcitriol (calcitriol 0.25 mcg oral capsule) 0.25 Microgram Oral Daily Duration: 30 Days Ordering Physician: Rosas Sawant MD 05/12 9am Unchanged Carvedilol (carvedilol 25 mg oral tablet) 1 tab(s) Oral Twice a day Unchanged Cholecalciferol (cholecalciferol 2000 intl units oral tablet) 1 tab(s) Oral Daily Duration: 30 Days Ordering Physician: Rosas Sawant MD 05/11 9pm Unchanged ferric citrate (Auryxia 210 mg oral tablet) Special Instructions: TAKE 2 TABLETS BY MOUTH 3 TIMES DAILY AND 1 TABLET WITH A SNACK ?? See instructions Unchanged Fluconazole (fluconazole 150 mg oral tablet) 1 tab(s) Oral Once Special Instructions: take it if symptoms does not improve after 4 days Ordering Physician: Ilya Carvajal MD ?? 05/12 9am Unchanged Fluticasone-Salmeterol (Advair HFA 230 mcg / 21 mcg) 2 puff(s) Inhalation Twice a day Asthma, severe persistent Ordering Physician: Faizan Morel MD 05/11 9pm Unchanged levETIRAcetam (levETIRAcetam 250 mg oral tablet) 1 tab(s) Oral Daily in the morning Duration: 90 Days Special Instructions: On dialysis days after HD Ordering Physician: Gómez Novoa II ?? 05/12 9am Unchanged levETIRAcetam (levETIRAcetam 250 mg oral tablet) 500 Milligram Oral Daily in the morning Ordering Physician: Casey Wells DO 05/12 9am Unchanged Minoxidil (minoxidil 2.5 mg oral tablet) 3 tab(s) Oral Daily 05/12 9am Unchanged Miscellaneous Rx (VITAMIN D3 2,000 UNIT TABLET) Special Instructions: TAKE 1 TABLET BY MOUTH EVERY DAY ?? 05/12 9am Unchanged NIFEdipine (NIFEdipine 60 mg oral tablet, extended release) 1 tab(s) Oral Twice a day Unchanged Oxycodone (oxyCODONE 15 mg oral tablet) 1 tab(s) Oral Every 4 hours as needed for as needed for pain Duration: 28 Days Ordering Physician: Antonio Sellers MD Every 4 hrs as needed Unchanged Pantoprazole (pantoprazole 40 mg oral delayed release tablet) 1 tab(s) Oral Daily Duration: 90 Days Ordering Physician: Antonio Sellers MD 05/12 9am Unchanged Sildenafil (sildenafil 20 mg oral tablet) 1 tab(s) Oral 3 times a day 1210 9pm Prescription Given During Visit No new medications prescribed at time of discharge.?? Laboratory Results Below is a partial list of the most recent Laboratory test results done prior to this discharge. You may have had other tests and procedures not included in this list. Please discuss all test resultswith your provider. Est Creatinine Clearance - 17.57 mL/min (05/11/2025) BASE EXCESS POC CARTRIDGE (05/08/2025) ???Base Excess (POC) POC Cartridge - NEGATIVE 13 Basic Metabolic Panel (05/09/2025) ???Sodium - 130 mmol/L???Potassium - 4.4 mmol/L???Chloride - 90 mmol/L???Bicarbonate Level - 28 mmol/L???Anion Gap - 12 mmol/L???Glucose Level - 118 mg/dL???BUN - 28 mg/dL???Creatinine-Blood - 5.26 mg/dL???Estimated GFR Creatinine - 10 ML/MIN/1.73 M2???Calcium - 8.9 mg/dL BUN (05/11/2025) ???BUN - 23 mg/dL CALCIUM IONIZED POC CART (05/08/2025) ???Ionized Calcium (POC) POC Cartridge - 0.93 mmol/L Calcium Level (05/11/2025) ???Calcium - 8.8 mg/dL CBC (05/08/2025) ???WBC - 8.2 k/mm3???RBC - 2.85 m/mm3???Hgb - 8.7 Gm/dL???Hct - 26.6 %???MCV - 93.3 femtoliters???MCH - 30.5 pg???MCHC - 32.7 Gm/dL???Platelet Count - 142 k/mm3???RDW-SD - 51.0 femtoliters???MPV - 10.1 femtoliters???Nucleated RBC (Automated) - 0.0 #/100 WBC'S???Abs. NRBC - 0.0 k/mm3 COVID-19 (2019 Novel Coronavirus) PCR (05/08/2025) ???COVID-19 PCR Specimen Source - NASAL???COVID-19 PCR Result - NEGATIVE Creatinine (05/11/2025) ???Creatinine-Blood - 3.90 mg/dL???Estimated GFR Creatinine - 14 ML/MIN/1.73 M2 Electrolytes (05/11/2025) ???Sodium - 132 mmol/L???Potassium - 4.5 mmol/L???Chloride - 92 mmol/L???Bicarbonate Level - 24 mmol/L???Anion Gap - 16 mmol/L Glucose Level (05/11/2025) ???Glucose Level - 110 mg/dL GLUCOSE POC (05/11/2025) ???Glucose, POC - 131 mg/dL GLUCOSE POC CARTRIDGE (05/08/2025) ???Glucose (POC) POC Cartridge - 190 HEMATOCRIT POC CARTRIDGE (05/08/2025) ???Hematocrit (POC) POC Cartridge - 31 % HEMOGLOBIN POC CARTRIDGE (05/08/2025) ???Hemoglobin (POC) POC Cartridge - 10.5 Gm/dL High Sensitivity Troponin T (05/08/2025) ???High Sensitivity Troponin (HSTnT) - 125 ng/L HOLD BLUE TUBE (05/07/2025) ???Hold Blue Top - SPECIMEN DISCARDED AFTER 4 HOURS. HOLD PHAM TUBE (05/07/2025) ???Hold Pham Top - SPECIMEN DISCARDED AFTER 1 WEEK HOLD LAVENDER TUBE (05/08/2025) ???Hold Lavender Top - SPECIMEN DISCARDED AFTER 24 HOURS. Magnesium Level (05/08/2025) ???Magnesium - 3.0 mg/dL Mg Level (05/09/2025) ???Magnesium - 2.1 mg/dL Phosphorus Level (05/09/2025) ???Phosphorus - 5.0 mg/dL POTASSIUM POC CARTRIDGE (05/08/2025) ???Potassium (POC) POC Cartridge - 8.3 mmol/L SODIUM POC CARTRIDGE (05/08/2025) ???Sodium (POC) POC Cartridge - 132 mmol/L VBG POC CARTRIDGE (05/08/2025) ???pH Venous (POC) POC Cartridge - 7.20???pCO2 Venous (POC) POC Cartridge - 37.6 mm Hg???pO2 Venous(POC) POC Cartridge - 33 mm Hg???Est Bicarbonate (POC) POC Cartridge - 14.7 mmol/L???% O2 Sat Venous (POC) POC Cartridge - 51???Specimen Type - Blood Gas - VENOUS Allergies (NKA means No Known Allergies) gabapentin(Severe)??anaphylaxis [...] Belongings I fully understand and agree that [facility] accepts no responsibility for all my [...] patient Date for Pt to Sign Valuables/Belongings: 05/08/25 18:18:00 ?? Other Discharge Information ? Case Management Discharge Plan?? Discharge Plan?? Discharge VNA/Hospice/Home Care: [facility] [phone] ?? Pulmonary Rehab Status?? Pulmonary Rehab Discharge Status?? Respiratory Rate: 16 br/min ? Common Emergency Awareness Tips IS [...] are strongly encouraged to quit. Please call [facility] at [phone] or [phone] Gamer ([phone]) or log in to [email or web address] for referrals to smoking cessation programs. ?? 924 Suicide & Crisis Lifeline is available 23/12 if you or someone you know needs to find a reason to keep living. By calling 965 you'll be connected to a skilled, trained counselor at a crisis center in your area. INPATIENT DISCHARGE INSTRUCTIONS SIGNATURE PAGE HIMA MORRIS Location:[facility] Registration Date and Time:05/08/2025 02:30 EST Primary Care Physician: Not on Staff, PCP Attending Physician: Yordy Wall MD, I HIMA MORRIS, have received the above patient education materials/instructions and have verbalized understanding. If ambulance or transport services are being used I further acknowledge being given a choice of service. ?? If you need to contact me, please call me at this number: . Patient/Mail Order Clerk Name: Patient/Mail Order Clerk Signature: Relationship to Patient: Witness Name/Signature: Date: Patient Care team information Care Team Personnel Name: Jayleen Quintana RN Position: S RN Member Role: Primary Care Nurse Name: Kiki Kahn RN Position: S RN Member Role: Primary Care Nurse Name: Kelsey Saenz RN Position: S RN Member Role: Primary Care Nurse Name: Saurabh Calixto RN Position: S RN Member Role: Primary Care Nurse Name: Zuleika Saldivar RN Position: [facility] MIK Nurse Member Role: Primary Care Nurse Name: Caitlyn Mendoza RN Position: [facility] RN Member Role: Primary Care Nurse Name: Adrianne Schwab RN Position: [facility] RN Member Role: Primary Care Nurse Name: Liya Read RN Position: [facility] RN Member Role: Primary Care Nurse Name: Zainab Trejo RN Position: [facility] Outreach Member Role: Primary Care Nurse Name: Zoë Torres RN Position: [facility] RN Member Role: Primary Care Nurse Name: Catherine Emerson RN Position: [facility] RN Member Role: Primary Care Nurse Name: Lisa Polanco Position: [facility] RN Supv Member Role: Primary Care Nurse Name: Loren Shannon RN Position: [facility] SN RN Member Role: Primary Care Nurse Name: Man Perdue RN Position: [facility] RN Member Role: Primary Care Nurse Name: Sara Maay RN Position: [facility] RN Member Role: Primary Care Nurse Name: Casie Chung RN Position: [facility] Rad RN Member Role: Primary Care Nurse Name: Jenna Rodrigues RN Position: [facility] RN Member Role: Primary Care Nurse Name: Mariaa Parkinson RN Position: [facility] RN Member Role: Primary Care Nurse Name: Katrin Arriaza RN Position: [facility] RN Member Role: Primary Care Nurse Name: Vanessa Martínez Position: [facility] RN Member Role: Primary Care Nurse Name: Michelle Landers RN Position: [facility] RN Member Role: Primary Care Nurse Name: Lima Cedeño RN Position: [facility] RN Member Role: Primary Care Nurse Name: Cesar Archer RN Position: [facility] RN Member Role: Primary Care Nurse Name: Sabra Hanson RN Position: [facility] RN Member Role: Primary Care Nurse Name: Gwendolyn Maria RN Position: [facility] RN Member Role: Primary Care Nurse Name: Kelsie Atkinson RN Position: [facility] SN RN Member Role: Primary Care Nurse Name: Nelda Castillo Position: [facility] Outreach Member Role: Lifetime Consulting Physician Name: Ambika Brannon RN Position: [facility] RN Member Role: Primary Care Nurse Name: Shaun Summers RN Position: [facility] ED RN W/OE and Tasks Member Role: Primary Care Nurse Name: Sylvester Teresa MD Position: [facility] Renal MD Member Role: Lifetime Consulting Physician Address: [address] [place] [address] [id number] [place] [address]- [place] Telecom: Name: Meliza Shelley Position: [facility] RN Member Role: Primary Care Nurse Name: Abhinav Gresham LPN Position: [facility] RN Member Role: Primary Care Nurse Name: Ashlee Maldonado RN Position: [facility] Outreach Member Role: Lifetime Consulting Physician Name: Zainab Lemon RN Position: [facility] RN Member Role: Primary Care Nurse Name: Audrey Marlow RN Position: [facility] RN Member Role: Primary Care Nurse Name: Elvis Laurent RN Position: [facility] RN Member Role: Primary Care Nurse Name: Skyler Muniz RN Position: [facility] RN Member Role: Primary Care Nurse Name: Horace Sky RN Position: [facility] RN Member Role: Primary Care Nurse Name: Rozina Bentley RN Position: [facility] RN Member Role: Primary Care Nurse Name: Nathaly Salvador RN Position: [facility] RN Member Role: Primary Care Nurse Name: Janice Mendes Position: [facility] Outreach Member Role: Lifetime Consulting Physician Name: Smita Ghotra RN Position: [facility] RN Member Role: Primary Care Nurse Name: Rashel Goodwin RN Position: [facility] RN Member Role: Primary Care Nurse Name: Abhinav Simeon RN Position: [facility] RN Member Role: Primary Care Nurse Name: Norma Martinez RN Position: [facility] RN Member Role: Primary Care Nurse Name: Juan Rivera RN Position: [facility] RN Member Role: Primary Care Nurse Name: Beverly Kramer RN Position: [facility] RN Member Role: Primary Care Nurse Name: Malgorzata Taylor RN Position: [facility] RN Member Role: Primary Care Nurse Name: Quynh Miguel RN Position: [facility] RN Member Role: Primary Care Nurse Name: Zuleika Bolden RN Position: [facility] RN Member Role: Primary Care Nurse Name: Mechelle Rodgers NP Position: [facility] Associate Professional Member Role: Lifetime Consulting Provider Address: [address] [place] [address] [address] [facility] [place] [place] [address]- Telecom: Name: Kassie Fernandez RN Position: [facility] AMB Nurse Member Role: Primary Care Nurse Name: Tod Stone MD Position: [facility] Renal MD Member Role: Lifetime Consulting Physician Address: [address] [facility] [place] [place] [address]- Telecom: Name: Barbara Arvizu RN Position: [facility] RN Member Role: Primary Care Nurse Name: Angelique Garcia RN Position: [facility] RN Member Role: Primary Care Nurse Name: Lita Sanchez RN Position: [facility] ED RN W/OE and Tasks Member Role: Primary Care Nurse Name: Lyla Wilson RN Position: [facility] RN Member Role: Primary Care Nurse Name: Tadeo Vasquez RN Position: [facility] RN Member Role: Primary Care Nurse Name: Maritza Hodge RN Position: [facility] RN Member Role: Primary Care Nurse Name: Wen Henderson RN Position: [facility] RN Member Role: Primary Care Nurse Name: Ayana Esteban RN Position: [facility] RN Member Role: Primary Care Nurse Name: Rogerio Arita RN Position: [facility] ED RN W/OE and Tasks Member Role: Primary Care Nurse Name: Angelita Hernández RN Position: [facility] SN RN Member Role: Primary Care Nurse Name: Leanne Cuba RN Position: [facility] RN Member Role: Primary Care Nurse Name: Blanca Estrada RN Position: [facility] RN Member Role: Primary Care Nurse Name: Malick Arechiga DO Position: [facility] Renal MD Member Role: Lifetime Consulting Physician Address: [address] [facility] [place] [place] [address]- Telecom: Name: Sarah Khan RN Position: [facility] RN Member Role: Primary Care Nurse Name: Thea Butt RN Position: [facility] RN Member Role: Primary Care Nurse Name: Brandie Valentin RN Position: [facility] RN Member Role: Primary Care Nurse Name: Gómez Donovan III, RN Position: [facility] RN Member Role: Primary Care Nurse Name: Janentte Galloway RN Position: [facility] change attendant Member Role: Utility Clerk Name: Areli Velazquez RN Position: [facility] RN Member Role: Primary Care Nurse Name: Gricel Jaquez RN Position: [facility] RN Member Role: Primary Care Nurse Name: Mariza Chavez RN Position: [facility] RN Member Role: Primary Care Nurse Name: Shai Cleaning RN Position: [facility] RN Member Role: Primary Care Nurse Name: Romulo Vasquez RN Position: [facility] RN Member Role: Primary Care Nurse Name: Miguel Lazar Position: [facility] RN Member Role: Primary Care Nurse Name: Kimberly Bentley Position: [facility] RN Member Role: Primary Care Nurse Name: Cory Durant RN Position: [facility] RN Member Role: Primary Care Nurse Name: Lili Jeter RN Position: [facility] RN Member Role: Primary Care Nurse Name: Martin Anthony RN Position: [facility] RN Member Role: Primary Care Nurse Name: Ace Clark RN Position: [facility] RN Member Role: Primary Care Nurse Name: Not on Staff, PCP Position: [facility] Physician (General Medicine) Member Role: PCP Name: Maribel Guerrero RN Position: [facility] RN Member Role: Primary Care Nurse Name: Maxine Hooks RN Position: [facility] RN Member Role: Primary Care Nurse Name: Titus Stark MD Position: [facility] Renal MD Member Role: Lifetime Consulting Physician Address: [address] [place], [place] [id number] [facility] [address] Telecom: Name: Shelby Hernandez RN Position: [facility] RN Member Role: Primary Care Nurse Name: Jamaica Marquez RN Position: [facility] RN Member Role: Primary Care Nurse Name: Ambika Fabian RN Position: [facility] RN Member Role: Primary Care Nurse Name: Cassandra Flores RN Position: [facility] RN Member Role: Primary Care Nurse Name: Claudia Pop LPN Position: [facility] RN Member Role: Primary Care Nurse Name: Trudy Galaviz RN Position: [facility] RN Member Role: Primary Care Nurse Name: Binu Sharma RN Position: [facility] RN Member Role: Primary Care Nurse Name: Mechelle Carter LPN Position: [facility] RN Member Role: Primary Care Nurse Name: Rena Field RN Position: [facility] AMB Nurse Member Role: Primary Care Nurse Name: Emir [INSTR] Dee MCKEON Position: [facility] RN Member Role: Primary Care Nurse Name: Jacy Menjivar RN Position: [facility] RN Member Role: Primary Care Nurse Name: Binu Townsend RN Position: [facility] RN Member Role: Primary Care Nurse Name: Kelsey Harding RN Position: [facility] RN Member Role: Primary Care Nurse Name: Geremias Larson RN Position: [facility] RN Member Role: Primary Care Nurse Name: Tamela Stevenson RN Position: [facility] ED RN W/OE and Tasks Member Role: Primary Care Nurse Name: Jean Mena RN Position: [facility] RN Member Role: Primary Care Nurse Name: Marion Morales RN Position: [facility] RN Member Role: Primary Care Nurse Name: Noelle Snider RN Position: [facility] SN RN Member Role: Primary Care Nurse Name: Pedro Perez RN Position: [facility] ED RN W/OE and Tasks Member Role: Primary Care Nurse Name: Zhen Vera MD Position: [facility] Renal MD Member Role: Lifetime Consulting Physician Address: [address] [facility] [address] [facility] [address] Telecom: Name: Cassie Galvez LPN Position: [facility] RN Member Role: Primary Care Nurse Name: Kenn Galvez RN Position: [facility] OB RN Member Role: Primary Care Nurse Name: Ashley Galvez RN Position: [facility] RN Member Role: Primary Care Nurse Name: Azra Hudson RN Position: [facility] RN Member Role: Primary Care Nurse Name: Nelda Mena RN Position: [facility] SN RN Member Role: Primary Care Nurse Name: Niko Johansen MD Position: [facility] BAG ADJUSTER MD Member Role: Lifetime BAG ADJUSTER Physician Address: [address] [facility] [place] [address]- Telecom: Name: Faizan Sotomayor RN Position: [facility] RN Member Role: Primary Care Nurse Name: Annamarie Armenta RN Position: [facility] RN Member Role: Primary Care Nurse Name: Mae Hyatt RN Position: [facility] RN Member Role: Primary Care Nurse Name: Richard Joy RN Position: [facility] RN Member Role: Primary Care Nurse Name: Tiki Murphy RN Position: [facility] RN Member Role: Primary Care Nurse Name: Linnea Osorio RN Position: [facility] RN Member Role: Primary Care Nurse Name: Rekha Bonilla RN Position: [facility] RN Member Role: Primary Care Nurse Name: Tiki Tamayo LPN Position: [facility] RN Member Role: Primary Care Nurse Name: Aly Calloway RN Position: [facility] RN Member Role: Primary Care Nurse Name: Susie Alvarez RN Position: [facility] RN Member Role: Primary Care Nurse Name: Azra Rodriguez RN Position: [facility] RN Member Role: Primary Care Nurse Name: Penelope Reddy RN Position: [facility] RN Member Role: Primary Care Nurse Name: Sherley Bhatt RN Position: [facility] Onco RN Member Role: Primary Care Nurse Name: Colette Gallegos RN Position: [facility] RN Member Role: Primary Care Nurse Name: Zainab Fowler RN Position: [facility] RN Member Role: Primary Care Nurse Name: Jadyn Fowler RN Position: [facility] RN Member Role: Primary Care Nurse Name: Charley Fowler RN Position: [facility] Clutch Assembler Member Role: Primary Care Nurse Name: Caroline Florence RN Position: [facility] SN RN Member Role: Primary Care Nurse Name: Keena Lopez RN Position: [facility] RN Member Role: Primary Care Nurse Name: Shilpa Lopez RN Position: [facility] RN Member Role: Primary Care Nurse Name: Randolph Ayon RN Position: [facility] RN Member Role: Primary Care Nurse Name: Ro Garza MD Position: [facility] Renal MD Member Role: Lifetime Consulting Physician Address: [address] [place] [address] [facility] [address] Telecom: Care Team Related Persons Name: ALVARO JIMENES Name: TANIYA MORRIS Name: CHRISTA MORRIS Name: JHONNY CANNON Name: ALVARO CASTRO Name: TANIYA SANTIAGO Insurance Providers Guarantor name: HIMA MORRIS [facility] Information #: 1 Payer: MEDICARE A INPT 26 Payer Identifier: NA Member Number: [id number] Group Number: NA Subscriber Identifier: [id number] Relationship to Subscriber: self Coverage Type: MEDICARE Coverage Verification Date: [place] Telecom: NA Address: [place] Plan Information #: 2 Payer: [employer] Payer Identifier: [place] Member Number: [id number] Group Number: [place] Subscriber Identifier: [id number] Relationship to Subscriber: self Coverage Type: MEDICAID Coverage Verification Date: [place] Telecom: NA Address: NA
--- OUTSIDE RECORDS SUMMARY | 2025-05-13 23:59 | XMS_ITS | Continuity of Care Document ---
Author Organization [facility] Address [address] [facility] [address] [place] [address]- [facility] Name Relationship Address Phone CHRISTA OROZCO father Unknown Unavailable CASTRO, JOSE mother Unknown Unavailab le KASSANDRA, JHONNY sibling Unknown Unavailabl e ERNESTO, SHEQUINNA Personal Relationship Unknown U navailable YUDY, ALVARO mother Unknown Unavailabl e CASTRO, ALVARO Personal Relationship Unknown Unavailable CASTRO, ALVARO mother Unknown Unavaila ble OROZCO, SHEQUINNA Personal Relationship Unknown U navailable JACK, TANIYA unrelated friend Unknown Unavailabl e OROZCOTANIYA father Unknown Unavailable Care Team Providers Care Tree Puller Name Role Phone Not on Staff, PCP Primary Care Physician Unavail able [place] [facility] [place] 04/13/25 - 05/13/25 [facility] [address] [facility] [address] Attending Physician: Rashmi Campuzano Admitting Physician: Rashmi Campuzano Referring Physician: Rashmi Campuzano Encounter Type: Triage Allergies, Adverse Reactions, Alerts Substance Criticality Severity Reaction Reaction Severity Status ibuprofen Unknown Active labetalol ithcing of eyes Acti ve lisinopril throat tightening Active losartan 1 Active valsartan Tongue swelling Itch Facial swelling Active furosemide 2 Eruption Active hydrALAZINE 3 Anaphylaxis Acti ve metoprolol Eruption Active heparin Active isosorbide dinitrate High criticality Severe Active predniSONE 4 Eruption Other Active spironolactone Rash Itching Swelling of breast Active doxazosin no anaphylaxis throat swelling Active hydrOXYzine 5 Active methocarbamol Unknown Active gabapentin High criticality Severe anaphylaxis Active penicillins hives C/O: itching Swelling of throat Active angiotensin converting enzyme inhibitors itchy, rash Unknown Active beta blockers Unknown Active Motrin Active Latex Eruption Itching Active Sensipar Active Other Environmental Allergy dye in benadryl Active traMADol throat tightening Active Retacrit Active Adhesive Bandage Act grecia epoetin beta-methoxy polyethylene glycol Unable to assess criticality Persistent Severe Dyspnea Eruption Active ANNA inhibitors Unknown Activ e cloNIDine Anaphylaxis Active amLODIPine rash Unknown Active cloNIDine topical chest pain A ctive levoFLOXacin Skin peeling an d itchiness Active 1Pruritis/rash 2Outside Source Comment: And stomach pain 3On 11/18/2022 had anaphylactic reaction in hospital. Patient reports similar sxs previously with higher doses of hydralazine when tried in past. Patient dose increased overnight - developed hives diffusely, stridor, and wheezing. Resolved with IM epi etc. 4Outside Source Comment: Swelling x 1 episodes. She has taken prednisone at other times without a problem 5tolerates diphenhydramine Immunizations Given and Recorded Vaccine Date Status [...] AM EDT, Route to Pharmacy Electronically, [facility]/pharmacy #[id number], Partial fill upon patient request if the [...] Maintenance, 03/02/25 4:27:00 PM EDT, Aerosol, [facility]/pharmacy #[id number], Partial fill upon patient request if the [...] Refills, Maintenance, 01/21/25 10:45:00 AM EDT, [facility]/pharmacy #[id number], Partial fill upon patient request [...] 0 Refills, Maintenance, 03/18/25 10:53:00 AM EDT, [facility], [facility], Partial fill upon patient [...] 0 Refills, Maintenance, 03/18/25 10:30:00 AM EDT[facility] Partial fill upon patient request [...] Soft Stop, 04/26/25 7:40:00 AM EST, Tablet, [facility] 3, Partial fill upon patient request [...] Refills, Maintenance, 01/06/25 7:21:00 AM EDT, [facility]/pharmacy #[id number], takes in addition to the keppra 500mg, [...] Refills, Maintenance, 05/02/25 6:32:00 PM EST, Tablet, [facility]/pharmacy #[id number], Partial fill upon patient request [...] Fills: 1 Fills Dispensed: 0 Mental Status 06/13/15 Sensory deficits None Problem List Condition Confirmation Course Effective Dates [...] vein occlusion, right Confirmed Active 1on MRI Vital Signs Most recent to oldest [Reference Range]: 1 Height 165 cm (06/13/15 1:20 PM) Weight 69 kg 1 (06/13/15 1:20 PM) Body Mass Index [18.50-24.99] 25.34 *H* (06/13/15 1:20 PM) 1Result Comment: 69 k per monthly update on 08/07/2016 Social History Social History Type Response Smoking Status Never (less than 100 in lifetime) entered on: 04/24/25 Sexual Orientation Self described orien tation: ; Straight or heterosexual Sex Sex Representation Female (finding) Patient Care team information Care Team Personnel Name: Jayleen Quintana RN Position: [facility] RN Member Role: Primary Care Nurse Name: Criss RNKiki Position: [facility] RN Member Role: Primary [...] Outreach Member Role: Primary Care Nurse Name: Catherine [...] MD Member Role: Lifetime Consulting Physician Address: [address] [place] [address] [address] [facility] [place], [place] [address] Telecom: Name: Meliza Shelley Position: [facility] [...] Consulting Physician Name: Smita Ghotra RN Position: [facility] RN Member Role: [...] Professional Member Role: Lifetime Consulting Provider Address: [address] [facility] [place], [place] [address] Telecom: Name: Kassie Fernandez RN Position: [facility] AMB Nurse Member Role: Primary Care Nurse Name: Tod Stone MD Position: [facility] Renal MD Member Role: Lifetime Consulting Physician Address: [address] [facility] [place], [place] - Telecom: Name: Barbara Arvizu RN Position: [facility] RN Member Role: Primary Care Nurse Name: Angelique Garcia RN Position: [facility] RN Member Role: Primary Care Nurse Name: Lita Sanchez RN Position: [facility] ED RN W/OE and Tasks Member Role: Primary Care Nurse Name: Lyla Wilson RN Position: [facility] RN Member Role: Primary Care Nurse Name: Tadeo Vasquez RN Position: [facility] RN Member [...] [address] [facility] [place] [place] - Telecom: Name: Sarah Khan RN Position: [facility] RN Member Role: Primary Care Nurse Name: Thea Butt RN Position: [facility] RN Member Role: Primary Care Nurse Name: Brandie Valentin RN Position: [facility] RN Member Role: Primary Care Nurse Name: Gómez Donovan III, RN Position: [facility] RN Member Role: Primary Care Nurse Name: Jannette Galloway RN Position: [facility] grain commodity manager Member Role: Salvage Cutter Name: Areli Velazquez RN Position: [facility] RN Member Role: Primary Care Nurse Name: Gricel Jaquez RN Position: [facility] RN Member Role: Primary Care Nurse Name: Mariza Chavez RN Position: [facility] RN Member Role: Primary Care Nurse Name: Shai Cleaning RN Position: [facility] RN Member Role: Primary Care Nurse Name: Romulo Vasquez RN Position: [facility] RN Member Role: Primary Care Nurse Name: Miguel Lazar Position: [facility] RN Member Role: Primary Care Nurse Name: Kimberly Bentley Position: [facility] RN Member Role: Primary Care Nurse Name: Cory Durant RN Position: [facility] RN Member Role: Primary Care Nurse Name: Lili Jeter RN Position: [facility] RN Member Role: Primary Care Nurse Name: Martin Anthony RN Position: [facility] RN Member Role: Primary Care Nurse Name: Ace Clark RN Position: [facility] RN Member Role: Primary Care Nurse Name: Not on Staff, PCP Position: [facility] Physician (General Medicine) Member Role: PCP Name: Marible Guerrero RN Position: [facility] RN Member Role: Primary Care Nurse Name: Maxine Hooks RN Position: [facility] RN Member Role: Primary Care Nurse Name: Titus Stark MD Position: [facility] Renal MD Member Role: Lifetime Consulting Physician Address: [address] [place] [address] [address] [facility] [address] Telecom: Name: Shelby Hernandez RN Position: [facility] [...] Care Nurse Name: Trudy Galaviz RN Position: [facility] RN Member Role: Primary Care Nurse Name: Binu Sharma RN Position: [facility] RN Member Role: Primary Care Nurse Name: Mechelle Carter LPN Position: [facility] RN Member Role: Primary Care Nurse Name: Rena Field RN Position: [facility] AMB Nurse Member [...] Care Nurse Name: Noelle Snider RN Position: [facility] SN RN Member Role: Primary Care Nurse Name: Pedro Perez RN Position: [facility] ED RN W/OE and Tasks Member Role: Primary Care Nurse Name: Zhen Vera MD Position: [facility] Renal MD Member Role: Lifetime Consulting Physician Address: [address] [facility] [address] [facility] [address] Telecom: Name: Cassie Galvez LPN Position: [facility] [...] Name: Niko Johansen MD Position: [facility] TAILINGS DAM PUMPER MD Member Role: Lifetime TAILINGS DAM PUMPER Physician Address: [address] [facility] [place] [place] [address]- Telecom: Name: Faizan Sotomayor RN Position: [facility] [...] Charley Fowler RN Position: [facility] Hospital Bricklayer Member Role: Primary Care Nurse Name: Caroline Florence RN Position: [facility] SN RN Member Role: Primary Care Nurse Name: Keena Lopez RN Position: [facility] RN Member Role: Primary Care Nurse Name: Shilpa Lopez RN Position: [facility] RN Member Role: Primary Care Nurse Name: Randolph Ayon RN Position: [facility] RN Member Role: Primary Care Nurse Name: Ro Garza MD Position: [facility] Renal MD Member Role: Lifetime Consulting Physician Address: [address] [place] [address] [facility] [address] Telecom: Care Team Related Persons Name: ALVARO JIMENES Name: TANIYA OROZCO Name: CHRISTA OROZCO Name: JHONNY CANNON Name: ALVARO CASTRO Name: TANIYA SANTIAGO Insurance Providers Guarantor name: HIMA OROZCO [employer] Plan Information #: 1 Payer: MEDICARE A INPT 26 Payer Identifier: NA Member Number: [id number] Group Number: NA Subscriber Identifier: NA Relationship to Subscriber: self Coverage Type: MEDICARE Coverage Verification Date: NA Telecom: NA Address: NA Health Plan Information #: 2 Payer: [facility] [employer]ER [employer] Payer Identifier: NA Member Number: [id number] Group Number: NA Subscriber Identifier: NA Relationship to Subscriber: self Coverage Type: MEDICAID Coverage Verification Date: NA Telecom: NA Address: NA
[2025-05-14] VITALS (9 sets, daily range): BP systolic 134–149; BP diastolic 67–78; PULSE 64–80; RESP 16–20; TEMP 36.4–36.8; O2SAT 95–99; BMI 22.0
--- NOTE | 2025-05-14 | ECG_ITS ---
Test Reason : chest pain Blood Pressure : */* mmHG Vent. Rate : 75 BPM Atrial Rate : 75 BPM P-R Int : 154 ms QRS Dur : 82 ms QT Int : 414 ms P-R-T Axes : 24 -1 161 degrees QTcB Int : 462 ms Normal sinus rhythm Minimal voltage criteria for LVH, may be normal variant ( [place] product ) ST & T wave abnormality, consider inferolateral ischemia Prolonged QT Abnormal ECG When compared with ECG of 24-Apr-2025 02:09, QT has shortened Referred By: Generic ED Physician Electronically Signed By: ROXANA RENTERIA MD
--- NOTE | ~2025-05-14 | CT_ITS ---
CLINICAL HISTORY: diffuse AP, diarrhea x 24 hrs Exam: Unenhanced CT abdomen and pelvis with multiplanar reformats. Comparison: 02/08/2025. Findings: CT abdomen: Lung bases reveal trace bibasilar patchy ground-glass opacity, improved compared with the prior exam common nonspecific although could suggest mild pulmonary mosaic attenuation or minimal pulmonary edema versus mild bibasilar pneumonia/aspiration. Liver is free of gross focal lesions and ductal dilatation. Gallbladder appears unremarkable. Spleen appears unremarkable, measuring 11.7 cm craniocaudad dimension. Pancreas and adrenal glands are grossly unremarkable. Kidneys reveal similar-appearing small size, measuring between 6.3 and 6.6 cm craniocaudad dimension. Kidneys otherwise unremarkable. No urolithiasis or hydroureteronephrosis. A small amount of free intraperitoneal fluid is present. No retroperitoneal masses or adenopathy. Abdominal aorta is normal caliber with mild calcific athero sclerosis. Bowel loops reveal equivocal mild wall thickening involving the proximal right colon and cecum with slight pericolonic stranding, with a few diverticuli in this region, suggesting either nonspecific segmental colitis or mild right-sided diverticulitis. No evidence of perforation or abscess. The appendix is not definitively delineated however there is no secondary CT evidence of appendicitis. No other abnormal bowel wall thickening or distention appreciated. CT pelvis: Uterus and adnexal structures appear unremarkable. No pelvic masses or adenopathy. Osseous structures reveal no destructive osseous lesions. Impression: 1. Findings described above suggesting mild segmental colitis versus uncomplicated diverticulitis involving the proximal ascending colon. 2. Small amount of free intraperitoneal fluid/ascites. This document has been electronically signed by: Woody Gallegos MD on 05/14/2025 13:25:37
--- NOTE | ~2025-05-14 | XR_ITS ---
CLINICAL HISTORY: cp --- Additional Notes or Special Instructions: Pt refusing exam at this time, RN notified--CM [id number] 2 view chest x-ray Comparison: CR - XR CHEST 1V - 04/21/25 18:34 EST CR - XR CHEST 1V - 02/12/25 06:05 EDT Findings: Pulmonary vascular congestion without consolidation or effusion. Cardiomediastinal silhouette is stable. No acute fracture. IMPRESSION: Pulmonary vascular congestion without consolidation or effusion. This document has been electronically signed by: Antonio Vazquez MD on 05/14/2025 11:21:39
--- OUTSIDE RECORDS SUMMARY | 2025-05-14 07:18 | XMS_ITS | Clinical Summary ---
Author Organization [facility] Address [address] [facility] [address] [place] [address] Phone Care Team Providers Care Making Machine Catcher Name Role Phone Kassie Reyna MD Primary [...] while on anticoagulation. She has seen at [facility] in July 2024 by ENT for [...] Department Care Team Description 04/03/2025 Orders Only [facility]PART[facility] [address] [place] [address] Lita Clarke NP ESRD (end stage renal disease) on dialysis (Primary Dx) from Last 3 Months Social History Tobacco [...] , 04/09/2016, 05/05/2015 COVID-19 VACCINE (1 - 2024-26 season) 2025 Adult Td,Tdap Booster 03/04/2029 03/04/2019, [...] cell phone pictures and video calls like Skimbl. If patient is found to be recording [...] RNA PCR Not Detected Not Detected IU/mL [facility] Comment: (NOTE) Assay Range: 15-100,000,000 IU/ml In rare instances, there might be a 1.0 - 1.5 log increase measured viral load observed in individuals with genotype 3a and 4. Please refer any questions to the Molecular Diagnostics Lab at extension [phone]. This is a quantitative assay utilizing real-time [...] LAB BLOOD BKR ORDERABLES Fi nal Result [facility] [address] [place] [address] from Last 3 Months or Most Recently Relevant to Health Maintenance Insurance MEDICARE PART A & B [facility] [place] MED[place]ID MEDICARE PART A & B [facility] [place] [facility] MEDIC[facility] PART A & [facility] & B HEALTH MEDICARE PART A & [facility] MEDICARE PART A & B [facility] MEDICARE PART A & B [place] MED[place] PART A & [place] MED[facility] PART A & B [facility] [place] MEDICARE PART A & B [facility] Advance Directives For more information, please contact: [phone] (9AM - 5PM [facility], Friday-Friday) * Full Code (Latest Code Status on File) Date Activated Date Inactivated Comments 11/01/2024 1:38 PM Question Answer Comments Code Status Confirmed With: Patient Care Teams Making Machine Catcher Relationship Specialty Start Date End Date Kassie Reyna MD [address] [place] [address] PCP - General Internal Medicine 12/17/21 Additional Source Comments The information contained in this document represents components of the legal health record. It is not the complete legal health record.[facility]
--- OUTSIDE RECORDS SUMMARY | 2025-05-14 07:18 | XMS_ITS | Encounter Summary ---
Author Organization [facility] Address [address] [place] [address] Care Team Providers Care Substation Manager Name Role Phone Kassie Reyna MD Primary Care Provider [phone] Dialysis, [facility] Unavailable [phone] Lana Quintana MD Unavailable Gómez Whitley MD Unavailable [phone] Encounter Details Date Type Department Care Team (Late st Contact Info) Description 06/14/2022 Scanned Document [address] [facility] [address] [place] [id number] Provider, Generic Social History Tobacco Use [...] on filedocumented in this encounter Care Teams Substation Manager Relationship Specialty Start Date End Date Kassie Reyna MD [address] [place] [address] PCP - General Internal Medicine [facility] [address] [place] [address] Dialysis Unit 09/05/22 Lana Quintana MD [address] [place] [address] Physician Nephrology 09/11/22 Gómez Whitley MD [address] [place] [address] Surgery, General 10/25/22 documented as of this encounter
--- OUTSIDE RECORDS SUMMARY | 2025-05-14 07:19 | XMS_ITS | Encounter Summary ---
Author Organization [facility] Address [address] [place] [address] Care Team Providers Care Pet Technologist Name Role Phone Kassie Reyna MD Primary Care Provider [phone] Encounter Details Date Type Department Care Team (Late st Contact Info) Description 08/22/2015 Scanned Document [facility] [address] [facility] [address] [facility] [address] [place] [address] Benjamin Morel Social History Tobacco Use Types [...] documented as of this encounter Care Teams Pet Technologist Relationship Specialty Start Date End Date Kassie Reyna MD [address] [address] PCP - General Internal Medicine 07/29/22 documented as of this encounter
--- OUTSIDE RECORDS SUMMARY | 2025-05-14 07:19 | XMS_ITS | Encounter Summary ---
Author Organization [facility] and [facility] Address [address] [place] [address] Care Team Providers Care Development Technician Name Role Phone Kassie Reyna MD Primary Care Provider +1- [phone] Encounter Details Date Type Department Care Team (Late st Contact Info) Description 09/17/2016 Scanned Document [facility] 800 [facility] [address]th [place] [address] External, Provider Social History Tobacco Use Types [...] documented as of this encounter Care Teams Development Technician Relationship Specialty Start Date End Date Kassie Reyna MD [address] [address] PCP - General Internal Medicine 07/29/22 documented as of this encounter
--- OUTSIDE RECORDS SUMMARY | 2025-05-14 07:19 | XMS_ITS | Encounter Summary ---
Author Organization [facility] and [facility] Address [address] [place] [address] Care Team Providers Care Stem Roller Name Role Phone Kassie Reyna MD Primary Care Provider +1- [phone] Encounter Details Date Type Department Care Team (Late st Contact Info) Description 03/07/2020 Abstract [facility] 800 [facility] 800 [facility] [address]th [place] [address] Katey Parr Social History Tobacco Use Types [...] documented as of this encounter Care Teams Stem Roller Relationship Specialty Start Date End Date Kassie Reyna MD [address] [address] PCP - General Internal Medicine 07/29/22 documented as of this encounter
--- OUTSIDE RECORDS SUMMARY | 2025-05-14 07:19 | XMS_ITS | Encounter Summary ---
Author Organization [facility] and [facility] Address [address] [place] [address] Care Team Providers Care Instructional Technologist Name Role Phone Kassie Reyna MD Primary Care Provider +1- [phone] Encounter Details Date Type Department Care Team (Late st Contact Info) Description 09/12/2015 Scanned Document [facility] 800 [facility] 800 [facility] 4th [place] [address] Malick Phan MD [address] [place] [address] [place] [address] Social History Tobacco Use Types Packs/Day Years [...] MD LAB BLOOD ORDERABLES Final Resul t [facility] [place], [place], [facility] documented in this encounter Visit [...] documented as of this encounter Care Teams Instructional Technologist Relationship Specialty Start Date End Date Kassie Reyna MD [address] [address] PCP - General Internal Medicine 07/29/22 documented as of this encounter
--- OUTSIDE RECORDS SUMMARY | 2025-05-14 07:19 | XMS_ITS | Encounter Summary ---
Author Organization [facility] and [facility] Address [address] [place] [address] Care Team Providers Care Office Support Name Role Phone Kassie Reyna MD Primary Care Provider +1- [phone] Encounter Details Date Type Department Care Team (Late st Contact Info) Description 07/23/2015 Scanned Document [facility] 800 [facility] 800 [facility] [address] [place] [address] External, Provider Social History Tobacco Use Types [...] documented as of this encounter Care Teams Office Support Relationship Specialty Start Date End Date Kassie Reyna MD [address] [address] PCP - General Internal Medicine 07/29/22 documented as of this encounter
--- OUTSIDE RECORDS SUMMARY | 2025-05-14 07:19 | XMS_ITS | Encounter Summary ---
Author Organization [facility] Address [email or web address] [place] [address] Phone Care Team Providers Care Artificial Candy Maker Name Role Phone Kassie Reyna MD Primary Care Provider + Encounter Details Date Type Department Care Team (Late st Contact Info) Description 11/27/2024 Procedure Pass [facility] - RF/IR [address] [place] [address] Social History Tobacco Use Types Packs/Day Years [...] cell phone pictures and video calls like [employer]. If patient is found to be recording [...] on filedocumented in this encounter Care Teams Artificial Candy Maker Relationship Specialty Start Date End Date Kassie Reyna MD [address] [place] [address] PCP - General Internal Medicine 12/17/21 documented as of this encounter Additional Source Comments The information contained in this document represents components of the legal health record. It is not the complete legal health record.[facility]
--- OUTSIDE RECORDS SUMMARY | 2025-05-14 07:19 | XMS_ITS | Encounter Summary ---
Author Organization [facility] and [facility] Address 20 [place] [address] Care Team Providers Care Permanent Mold Supervisor Name Role Phone Kassie Reyna MD Primary Care Provider +1- [phone] Encounter Details Date Type Department Care Team (Late st Contact Info) Description 10/10/2015 Abstract [facility] [address] [place] [address] Radha Luna RN Social History Tobacco Use [...] documented as of this encounter Care Teams Permanent Mold Supervisor Relationship Specialty Start Date End Date Kassie Reyna MD [facility] [address] [address] PCP - General Internal Medicine 07/29/22 documented as of this encounter
--- OUTSIDE RECORDS SUMMARY | 2025-05-14 07:19 | XMS_ITS | Encounter Summary ---
Author Organization [facility] and [facility] Address 20 [place] [address] Care Team Providers Care Pattern Marker Name Role Phone Kassie Reyna MD Primary Care Provider +1- [phone] Encounter Details Date Type Department Care Team (Late st Contact Info) Description 02/15/2016 Scanned Document [facility] 800 [facility] 800 [facility] 4th [place] [address] External, Provider Social History Tobacco Use Types [...] documented as of this encounter Care Teams Pattern Marker Relationship Specialty Start Date End Date Kassie Reyna MD [address] [address] PCP - General Internal Medicine 07/29/22 documented as of this encounter
--- OUTSIDE RECORDS SUMMARY | 2025-05-14 07:19 | XMS_ITS | Encounter Summary ---
Author Organization [facility] and [facility] Address 20 [place] [address] Care Team Providers Care Ground Support Equipment Mechanic Name Role Phone Kassie Reyna MD Primary Care Provider +1- [phone] Encounter Details Date Type Department Care Team (Late st Contact Info) Description 04/09/2016 Scanned Document [facility] [address] [facility] [address] [facility] 4th [place] [address] External, Provider Social History Tobacco Use Types [...] documented as of this encounter Care Teams Ground Support Equipment Mechanic Relationship Specialty Start Date End Date Kassie Reyna MD [address] [address] PCP - General Internal Medicine 07/29/22 documented as of this encounter
--- OUTSIDE RECORDS SUMMARY | 2025-05-14 07:19 | XMS_ITS | Encounter Summary ---
Author Organization [facility] and [facility] Address 20 [place] [address] Care Team Providers Care Environmental Systems Coordinator Name Role Phone Kassie Reyna MD Primary Care Provider +1- [phone] Encounter Details Date Type Department Care Team (Latest Contact Info) Description 10/04/2015 Transcribed Orders Lab Specimens 55 [place], [place] [address] Sancho Dowd MD [address] [place] [address] Pre-transplant evaluation for end stage [...] (10/04/2015 12:40 PM EDT) ABO Grouping O [facility] Rh Type POS [facility] Blood specimen (specimen) 10/04/2015 12:40 PM EDT Narrative [facility] - 10/05/2015 12:34 AM EDT Performing Site: [facility] [address] [place] [address] us Sancho Dowd MD BLOOD BANK TEST ORDERABLES Final Result Performing Organization Address City/State/[facility] Co de Phone Number [facility] [address] [place] [address] documented in this encounter Visit Diagnoses Diagnosis [...] documented as of this encounter Care Teams Environmental Systems Coordinator Relationship Specialty Start Date End Date Kassie Reyna MD [facility] [address] [address] PCP - General Internal Medicine 07/29/22 documented as of this encounter
--- OUTSIDE RECORDS SUMMARY | 2025-05-14 07:19 | XMS_ITS | Patient Health Record ---
Author Organization [facility] Address [address] [place] [address] Care Team Providers Care Technical Intern Name Role Phone Self, Self Unavailable Unavailable [...] End Date Status hydrALAZINE HCl 100 MG Tablet 1 tablet with food Orally twice a day Active Auryxia 1 GM 210 MG(Fe) Tablet 1 tablets with meals Orally Three times a day; Duration: 30 day(s) Active Labetalol HCl 300 MG Tablet 1 tablet Orally Twice a day Active Keppra 250 MG Tablet 1 tablet Orally daily Takes on dialysis days Active oxyCODONE HCl 10 MG Tablet 1 tablet as needed Orally QID; Duration: 30 days 09/06/2019 Active Keppra 500 MG Tablet 1 tablet Orally Daily Active Cyclobenzaprine HCl 10 MG Tablet 1 tablet 1 to 2 hours before bedtime Orally Once a day Active oxyCODONE HCl 10 MG Tablet 1 tablet as needed Orally every 6 hrs; Duration: 30 days Please have script mailed to patient. Thx! 12/31/2019 Active Social History Social History Drugs/Alcohol: Social Info Question Answer Notes Alcohol Screen (Audit-C) Did you have a drink containing alcohol in the past year? No Points 0 Interpretation Negative Drugs Have you used drugs other than those for medical reasons in the past 12 months? No Tobacco Use: Social Info Question Answer Notes Tobacco Use/Smoking Are you a: never smoker Additional Details Category Social Info Options Details Injury Work or Auto Related Injury? No Work related No Problems Problem Type SNOMED Code ICD Code Onset Dates Problem Status W/U Status Risk Notes Problem Chronic pain (44893918) Other chronic pain (G89.29) Active confirmed Problem Chronic pain syndrome (817191271) Chronic pain syndrome (G89.4) Active confirmed Problem Low back pain (837203438) Low back pain (M54.5) Active confirmed Problem End stage renal disease (25450545) End stage chronic kidney disease (N18.6) Active confirmed Plan Of Treatment Pending Test Test Name Order Date UDT - POC 11/01/2019 Insurance Providers Payer Name Payer Address Payer Phone Subscriber Number Group Number Insured Name Patient Relationship to Insured Coverage Start Date Coverage End Date Medicare-[place] Medicare [address] [place] [address] [id number] Flavio Morris Self - patient is the insured [facility] [address] [address] [place] [address] [id number] Flavio Morris Self - patient is the insured Medical (General) History Medical History History ICD Code anxiety Kidney Disease seizures allergies Surgical History Surgery Date(Month/Year) section DNC Angiogram fistula repair parathyroidectomy
--- OUTSIDE RECORDS SUMMARY | 2025-05-14 07:19 | XMS_ITS | Encounter Summary ---
Author Organization [facility] and [facility] Address [address] [place] [address] Care Team Providers Care Ignition Expert Name Role Phone Kassie Reyna MD Primary Care Provider +1- [phone] Encounter Details Date Type Department Care Team (Late st Contact Info) Description 10/16/2016 Scanned Document [facility] 800 [facility] 800 [facility] 4th [place] [address] Kassie Altamirano MD [address] [place] [address] Social History Tobacco Use Types Packs/Day [...] documented as of this encounter Care Teams Ignition Expert Relationship Specialty Start Date End Date Kassie Reyna MD [address] [address] PCP - General Internal Medicine 07/29/22 documented as of this encounter
--- OUTSIDE RECORDS SUMMARY | 2025-05-14 07:19 | XMS_ITS | Patient Health Record ---
Author Organization [facility] Address [address] [place] [address] [address] [place], [place] [id number] Support Name Relationship Address Phone HIMA OROZCO Guarantor Unknown Reason For Referral No Information Plan Of Treatment No Information
--- OUTSIDE RECORDS SUMMARY | 2025-05-14 07:19 | XMS_ITS | Encounter Summary ---
Author Organization [facility] Address [address] [place] [address] Phone Care Team Providers Care Business Transformation Analyst Name Role Phone Kassie Reyna MD Primary Care Provider + Encounter Details Date Type Department Care Team (Late st Contact Info) Description 11/16/2024 Procedure Pass [facility] [address] [place] [address] Social History Tobacco Use Types Packs/Day Years [...] cell phone pictures and video calls like [employer]. If patient is found to be recording [...] on filedocumented in this encounter Care Teams Business Transformation Analyst Relationship Specialty Start Date End Date Kassie Reyna MD [address] [place] [address] PCP - General Internal Medicine 12/17/21 documented as of this encounter Additional Source Comments The information contained in this document represents components of the legal health record. It is not the complete legal health record.[facility]
--- OUTSIDE RECORDS SUMMARY | 2025-05-14 07:19 | XMS_ITS | Encounter Summary ---
Author Organization [facility] and [facility] Address [address] [place] [address] Care Team Providers Care Technical Aide Name Role Phone Kassie Reyna MD Primary Care Provider +1- [phone] Encounter Details Date Type Department Care Team (Late st Contact Info) Description 10/04/2015 Scanned Document [facility] 800 [facility] 800 [facility] 4th [place] [address] Benjamin Morel Social History Tobacco Use Types [...] as of this encounter Care Teams Technical Aide Relationship Specialty Start Date End Date Kassie Reyna MD [facility] [address] [address] PCP - General Internal Medicine 07/29/22 documented as of this encounter
--- OUTSIDE RECORDS SUMMARY | 2025-05-14 07:19 | XMS_ITS | Encounter Summary ---
Author Organization [facility] and [facility] Address [address] [place] [address] Care Team Providers Care Brush Material Preparer Name Role Phone Kassie Reyna MD Primary Care Provider +1- [phone] Encounter Details Date Type Department Care Team (Late st Contact Info) Description 08/21/2017 Abstract [facility] 800 [facility] 800 [facility] [address] [place] [address] Cinthia Jaramillo RN Social History Tobacco Use [...] documented as of this encounter Care Teams Brush Material Preparer Relationship Specialty Start Date End Date Kassie Reyna MD [address] [address] PCP - General Internal Medicine 07/29/22 documented as of this encounter
--- OUTSIDE RECORDS SUMMARY | 2025-05-14 07:19 | XMS_ITS | Clinical Summary ---
Author Organization [address] Address [address] [place] [address] Care Team Providers Care Escort Service Attendant Name Role Phone Kassie Reyna MD Primary Care Provider +1- [phone] Allergies Active Allergy Reactions Criticality Noted Date [...] has PMHx HTN, reports recent admission at [facility] for hypertensive emergency. 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 Fax: Mode: Home Hemo Schedule: Anticoagulation: none Sensitization : - x1 spontanious x1 elective Transplant: no Transfusions: no CPRA: 93% CONSENT Status Date Comments CUPOLA MECHANIC/KDPI >85 Decline 03/28/2020 PHS Increased Risk Decline [...] Date Comments Colonoscopy N/A < 45 Other CHILDBIRTH AND INFANT CARE TEACHER Status Date Comments Mammogram N/A < 40 [...] HTN and preeclampsia Planning transplant. Moved from [facility] to [place] [facility] transplant list Essential hypertension, benign 04/23/2006 Anxiety [...] drink = 0.6 oz pur e alcohol) [facility] Utilities Answer Date Recorded In the [...] this topic Medical Devices Implanted Type Area Farmworker Fruit Device Identifier Shelf Expiration Date Model / Serial / Lot Kit Catheter Hemo 2lum Str Lng Trm Glidepath [id number] - [id number] Implanted:Qty: 1 on 09/30/2024 by Devonte Sales MD at [facility] [address] Implant CR BARD [id number] 10/30/2025 [id number] / / [id number] Procedures Procedure Name Priority Date/Time Associated Diagnosis [...] 136 - 144 mmol/L 10/23/2024 12:27 PM [facility] Potassium 5.1 3.3 - 5.3 mmol/L 10/23/2024 12:27 PM [facility] Chloride 97(L) 98 - 107 mmol/L 10/23/2024 12:27 PM [facility] CO2 24 20 - 30 mmol/L 10/23/2024 12:27 PM [facility] Anion Gap 14 7 - 17 10/23/2024 12:27 PM [facility] Glucose 125(H) 70 - 100 mg/dL 10/23/2024 12:27 PM [facility] BUN 33(H) 6 - 20 mg/dL 10/23/2024 12:27 PM [facility] Creatinine 7.57(H) 0.40 - 1.30 mg/dL 10/23/2024 12:27 PM [facility]IC[facility] Calcium 7.8(L) 8.8 - 10.2 mg/dL 10/23/2024 12:27 PM [facility] BUN/Creatinine Ratio 4.4(L) 8.0 - 23.0 10/23/2024 12:27 PM [facility]IC[facility] eGFR (Creatinine) 7(L) >=60 mL/min/1.7 3m2 10/23/2024 12:27 PM [facility] MEDIC[facility] Comment: [facility] utilizes CKD-EPI Creatinine 2020 to report eGFR. Values < 60 mL/min/1.73 m2 may indicate CKD if present for more than three months AND creatinine is at steady state. The eGFR provides a rough estimate of kidney function. For further guidance, please refer to the CKD: Adult Help Desk Operator Signature pathway. Creatinine Delta 10/23/2024 12:27 PM [facility] Comment:No previous creatini ne <5.00 mg/dL is available within the previous 12 months to calculate a delta creatinine. Blood ARM NEC / Unknown Venipuncture / Unknown 10/23/2024 11:18 AM EDT 10/23/2024 11:38 AM EDT us Golden Gordillo MD LAB BLOOD ORDERABL ES Final Result [facility] MEDICINE [address] [place] [address] * HIV-1/HIV-2 antibody/antigen screen w/reflex ([facility]) (08/13/2022 3:32 PM EDT) HIV 1 and 2 Antibody/Antigen Screen Negative Negative 08/13/2022 9:02 PM EDT [facility]ICINE Comment:Interpretation: This specimen [...] ORDERABLES Samira l Result Performing Organization Address [facility]/ZIP Co de Phone Number [facility] OF [facility]AT[facility] MEDICINE [address] [place] [address] * Hepatitis C Ab with reflex to HCV PCR (01/23/2021 6:51 AM EDT) Hepatitis C Antibody Non-Reacti ve Non-Reacti ve 01/23/2021 11:31 AM EDT [facility] OF PATHOLOGY Blood Venipuncture / Unknown 01/23/2021 6:51 AM EDT 01/23/2021 7:09 AM EDT us Minh Pike MD LAB BLOOD ORDERABLES Final Resu lt [facility] DEPARTMENT OF PATHOLOGY [address] [place] [address] from Last 3 Months or Most Recently Relevant to Health Maintenance Insurance MEDICARE [id number] [place] [id number] [place] MEDIC[place] [id number] [place] [address] [place] [address] MEDICARE [place]ICA[place] [address] [place] [address] MEDICARE [place]ICAID [id number] Advance Directives * Full [...] the Code Status Discussed? Patient Care Teams Escort Service Attendant Relationship Specialty Start Date End Date Kassie Reyna MD [address] [address] PCP - General Internal Medicine 07/29/22
--- OUTSIDE RECORDS SUMMARY | 2025-05-14 07:19 | XMS_ITS | Encounter Summary ---
Author Organization [facility] Address [address] [place] [address] Care Team Providers Care Sports Psychologist Name Role Phone Kassie Reyna MD Primary Care Provider +1- [phone] Encounter Details Date Type Department Care Team (Latest Contact Info) Description 10/04/2015 Transcribed Orders [facility] [address] [place] [address] Sancho Dowd MD [address] [place] [address] Pre-transplant evaluation for end stage [...] EDT) ECG - HEART RATE 63 bpm [facility] EKG QRS Interval 87 ms [facility] EKG QT Interval 423 ms [facility] EKG QTC Interval 434 ms [facility] EKG P [place] 73 deg [facility] EKG QRS [place] 31 deg [facility] EKG T Wave [place] 28 deg [facility] EKG P-R Interval 157 msec [facility] EKG Comment::Sinus rhythm::Elect ronically Signed On 10-05-2015 15:39:32 EDT by Horace Rajan MD 10/04/2015 2:12 PM EDT us Sancho Dowd MD ECG ORDERABLES Final Resul t [facility] EKG documented in this encounter Visit [...] documented as of this encounter Care Teams Sports Psychologist Relationship Specialty Start Date End Date Kassie Reyna MD [facility] [address] [address] PCP - General Internal Medicine 07/29/22 documented as of this encounter
--- OUTSIDE RECORDS SUMMARY | 2025-05-14 07:19 | XMS_ITS | Encounter Summary ---
Author Organization [facility] Address [address] [place] [address] Care Team Providers Care Hvac Engineering Technician Name Role Phone Kassie Reyna MD Primary Care Provider +1- [phone] Encounter Details Date Type Department Care Team (Late st Contact Info) Description 10/04/2015 Documentation [facility] 800 [facility] 800 [facility] [address] [place] [address] Isidoro New, PharmD Social History Tobacco Use [...] medications. I updated her allergies, immunizations, and medication list. Flavio Morris reports adherence to her medication, with a [place] Medication Adherence Scale (MMAS-8) score of 8, High adherence. The CT PT ESCORT was accessed and Ms. Morris is not [...] documented as of this encounter Care Teams Hvac Engineering Technician Relationship Specialty Start Date End Date Kassie Reyna MD [address] [phone] PCP - General Internal Medicine 07/29/22 documented as of this encounter
--- OUTSIDE RECORDS SUMMARY | 2025-05-14 07:19 | XMS_ITS | Encounter Summary ---
Author Organization [facility] Address [address] [place] [address] Care Team Providers Care Operations Research Manager Name Role Phone Kassie Reyna MD Primary Care Provider +1- [phone] Encounter Details Date Type Department Care Team (Late st Contact Info) Description 01/27/2015 Scanned Document [facility] 800 [facility] [address] [place] [address] External, Provider Social History Tobacco Use Types [...] documented as of this encounter Care Teams Operations Research Manager Relationship Specialty Start Date End Date Kassie Reyna MD [address] [address] PCP - General Internal Medicine 07/29/22 documented as of this encounter
--- OUTSIDE RECORDS SUMMARY | 2025-05-14 07:19 | XMS_ITS | Encounter Summary ---
Author Organization [facility] Address [address] [place] [address] Care Team Providers Care County Auditor Name Role Phone Kassie Reyna MD Primary Care Provider +1- [phone] Encounter Details Date Type Department Care Team (Late st Contact Info) Description 09/18/2016 Scanned Document [facility] 800 [facility] 800 [facility] 4th [place] [address] External, Provider Social History Tobacco Use Types [...] documented as of this encounter Care Teams County Auditor Relationship Specialty Start Date End Date Kassie Reyna MD [address] [address] PCP - General Internal Medicine 07/29/22 documented as of this encounter
--- OUTSIDE RECORDS SUMMARY | 2025-05-14 07:19 | XMS_ITS | Encounter Summary ---
Author Organization [facility] and [facility] Address [address] [place] [address] Care Team Providers Care Neurourologist Name Role Phone Kassie Reyna MD Primary Care Provider +1- [phone] Reason for Referral * Non-Referral (Routine) - Closed Specialty Diagnoses / Procedures Referred By Megan araujo Referred To Contact Procedures EEG Scan External, Provider Referral ID Status Reason Start Date Expiration Date Visits Re quested Visits Authorized [id number] Closed 01/10/2017 01/10/2018 1 1 Encounter Details Date Type Department Care Team (Late st Contact Info) Description 01/10/2017 Scanned Document [facility] [address] 4th [place] [address] External, Provider Social History Tobacco Use Types [...] documented as of this encounter Care Teams Neurourologist Relationship Specialty Start Date End Date Kassie Reyna MD [address] [address] PCP - General Internal Medicine 07/29/22 documented as of this encounter
--- OUTSIDE RECORDS SUMMARY | 2025-05-14 07:19 | XMS_ITS | Encounter Summary ---
Author Organization [facility] Address [address] [place] [address] Care Team Providers Care Kettle Operator Head Name Role Phone Kassie Reyna MD Primary Care Provider +1- [phone] Encounter Details Date Type Department Care Team (Late st Contact Info) Description 07/24/2015 Scanned Document [facility] 800 [facility] 800 [facility] 4th [place] [address] External, Provider Social History Tobacco Use Types [...] documented as of this encounter Care Teams Kettle Operator Head Relationship Specialty Start Date End Date Kassie Reyna MD [address] [address] PCP - General Internal Medicine 07/29/22 documented as of this encounter
--- OUTSIDE RECORDS SUMMARY | 2025-05-14 07:19 | XMS_ITS | Encounter Summary ---
Author Organization [facility] Address [address] [place] [address] Care Team Providers Care Printer Apprentice Name Role Phone Kassie Reyna MD Primary Care Provider +1- [phone] Encounter Details Date Type Department Care Team (Late st Contact Info) Description 08/22/2015 Abstract [facility] [address] [facility] [address] [facility] 4th [place] [address] Benjamin Morel Social History Tobacco Use Types [...] documented as of this encounter Care Teams Printer Apprentice Relationship Specialty Start Date End Date Kassie Reyna MD [facility] [address] [address] PCP - General Internal Medicine 07/29/22 documented as of this encounter
--- OUTSIDE RECORDS SUMMARY | 2025-05-14 07:19 | XMS_ITS | Encounter Summary ---
Author Organization [facility] Address [address] [place] [address] Care Team Providers Care Plastic Molder Name Role Phone Kassie Reyna MD Primary Care Provider +1- [phone] Encounter Details Date Type Department Care Team (Late st Contact Info) Description 05/06/2016 Scanned Document [facility] 800 [facility] 800 [facility] [address] [place] [address] External, Provider Social History Tobacco Use Types [...] documented as of this encounter Care Teams Plastic Molder Relationship Specialty Start Date End Date Kassie Reyna MD [address] [address] PCP - General Internal Medicine 07/29/22 documented as of this encounter
--- OUTSIDE RECORDS SUMMARY | 2025-05-14 07:19 | XMS_ITS | Encounter Summary ---
Author Organization [facility] and [facility] Address [address] [place] [address] Care Team Providers Care Evidence Custodian Name Role Phone Kassie Reyna MD Primary Care Provider +1- [phone] Encounter Details Date Type Department Care Team (Late st Contact Info) Description 10/04/2015 Scanned Document [facility] 800 [facility] 800 [facility] [address] [place] [address] Benjamin Morel Social History Tobacco Use Types [...] documented as of this encounter Care Teams Evidence Custodian Relationship Specialty Start Date End Date Kassie Reyna MD [facility] [address] [address] PCP - General Internal Medicine 07/29/22 documented as of this encounter
--- OUTSIDE RECORDS SUMMARY | 2025-05-14 07:20 | XMS_ITS | Encounter Summary ---
Author Organization [facility] Address [address] [facility] [address] [place] [address] Phone Care Team Providers Care Bottle Packing Machine Cleaner Name Role Phone Kassie Reyna MD Primary Care Provider + Encounter Details Date Type Department Care Team (Late st Contact Info) Description 11/03/2024 Procedure Pass [facility]iology, Main [address], Floor 1 [place] [address] Social History Tobacco Use Types Packs/Day Years [...] on filedocumented in this encounter Care Teams Bottle Packing Machine Cleaner Relationship Specialty Start Date End Date Kassie Reyna MD [address] [place] [address] PCP - General Internal Medicine 12/17/21 documented as of this encounter Additional Source Comments The information contained in this document represents components of the legal health record. It is not the complete legal health record.[facility]
--- OUTSIDE RECORDS SUMMARY | 2025-05-14 07:20 | XMS_ITS | Encounter Summary ---
Author Organization [facility] Address [address] [place] [address] Care Team Providers Care Medical Biller/Coder Name Role Phone Kassie Reyna MD Primary Care Provider +1- [phone] Encounter Details Date Type Department Care Team (Late st Contact Info) Description 09/05/2023 Abstract [facility] [address] [facility] [address] [facility] 4[address] [place] [address] Taylor De León, MIKE Social History Tobacco [...] documented as of this encounter Care Teams Medical Biller/Coder Relationship Specialty Start Date End Date Kassie Reyna MD 3400 [facility] 1 [place] [address] PCP - General Internal Medicine 07/29/22 documented as of this encounter
--- OUTSIDE RECORDS SUMMARY | 2025-05-14 07:20 | XMS_ITS | Encounter Summary ---
Author Organization [facility] Address [address] [place] [address] Care Team Providers Care Pool Servicer Name Role Phone Kassie Reyna MD Primary Care Provider +1- [phone] Dialysis, [facility] Unavailable +1 -[phone] Lana Quintana MD Unavailable Gómez Whitley MD Unavailable Encounter Details Date Type Department Care Team (Late st Contact Info) Description 08/19/2023 Scanned Document [facility] Department of Nephrology and Access Surgery [place] [address] [place] [address] Lana Quintana MD [address] [address] Social History Tobacco Use Types Packs/Day Years [...] on filedocumented in this encounter Care Teams Pool Servicer Relationship Specialty Start Date End Date Kassie Reyna MD [address] [place] [address] PCP - General Internal Medicine 12/24/21 Dialysis, [facility] [address] [place] [address] Dialysis Unit 09/05/22 Lana Quintana MD [address] [place] [address] Physician Nephrology 09/11/22 Gómez Whitley MD [address] [place] [address] Surgery, General 10/25/22 documented as of this encounter
--- OUTSIDE RECORDS SUMMARY | 2025-05-14 07:20 | XMS_ITS | Encounter Summary ---
Author Organization [facility] Address 399 [facility] [address] [place] [address] Phone Care Team Providers Care Blood And Plasma Laboratory Assistant Name Role Phone Kassie Reyna MD Primary Care Provider + Encounter Details Date Type Department Care Team (Late st Contact Info) Description 11/01/2024 Procedure Pass [facility] Imaging - RF/IR [address] [facility], 2nd [place] [address] Social History Tobacco Use Types Packs/Day Years [...] 2:14 AM EDT Daria Arechiga RN * [place] Suicide Severity Rating Scale (Screener/Recent Self-Report) Question [...] on filedocumented in this encounter Care Teams Blood And Plasma Laboratory Assistant Relationship Specialty Start Date End Date Kassie Reyna MD [address] [place] [address] PCP - General Internal Medicine 12/17/21 documented as of this encounter Additional Source Comments The information contained in this document represents components of the legal health record. It is not the complete legal health record.[facility]
--- OUTSIDE RECORDS SUMMARY | 2025-05-14 07:20 | XMS_ITS | Encounter Summary ---
Author Organization [facility] Address [address] [place] [address] Phone Care Team Providers Care Electrical Transmission Engineer Name Role Phone Kassie Reyna MD Primary Care Provider + Encounter Details Date Type Department Care Team (Late st Contact Info) Description 11/16/[address], Mook [address] [facility], 2nd Floor, [address] [place] [address] Social History Tobacco Use Types Packs/Day Years [...] cell phone pictures and video calls like [employer] If patient is found to be recording [...] on filedocumented in this encounter Care Teams Electrical Transmission Engineer Relationship Specialty Start Date End Date Kassie Reyna MD [address] [place] [address] PCP - General Internal Medicine 12/17/21 documented as of this encounter Additional Source Comments The information contained in this document represents components of the legal health record. It is not the complete legal health record.[facility]
--- OUTSIDE RECORDS SUMMARY | 2025-05-14 07:20 | XMS_ITS | Encounter Summary ---
Author Organization [facility] Address [address] [facility] [address] [place] [address] Phone Care Team Providers Care Manufacturing Job Titles Name Role Phone Kassie Reyna MD Primary Care Provider + Encounter Details Date Type Department Care Team (Late st Contact Info) Description 11/01/2024 Procedure Pass [facility], [address], Floor 1 [place] [address] Social History Tobacco Use Types Packs/Day Years [...] 2:14 AM EDT Daria Arechiga RN * [place] Suicide Severity Rating Scale (Screener/Recent Self-Report) Question [...] on filedocumented in this encounter Care Teams Manufacturing Job Titles Relationship Specialty Start Date End Date Kassie Reyna MD [address] [place] [address] PCP - General Internal Medicine 12/17/21 documented as of this encounter Additional Source Comments The information contained in this document represents components of the legal health record. It is not the complete legal health record.[facility]
--- OUTSIDE RECORDS SUMMARY | 2025-05-14 07:20 | XMS_ITS | Encounter Summary ---
Author Organization [facility] Address [address] [place] [address] Care Team Providers Care Oracle Hrms Developer Name Role Phone Kassie Reyna MD Primary Care Provider +1- [phone] Encounter Details Date Type Department Care Team (Late st Contact Info) Description 11/07/2023 Abstract [facility] 800 [facility] 800 [facility] 4th [place] [address] Taylor De León, MIKE Social History Tobacco [...] documented as of this encounter Care Teams Oracle Hrms Developer Relationship Specialty Start Date End Date Kassie Reyna MD 3400 [facility] 1 [place] [address] PCP - General Internal Medicine 07/29/22 documented as of this encounter
--- OUTSIDE RECORDS SUMMARY | 2025-05-14 07:20 | XMS_ITS | Encounter Summary ---
Author Organization [facility] Address [address] [place] [address] Care Team Providers Care Manager Fiber Name Role Phone Kassie Reyna MD Primary Care Provider +1- [phone] Dialysis, [facility] Unavailable +1 -[phone] Lana Quintana MD Unavailable [phone] Gómez Whitley MD Unavailable Encounter Details Date Type Department Care Team (Late st Contact Info) Description 06/25/2023 Mobile [facility] Department of Nephrology [address] [address] Lana Quintana MD [address] [place] [address] Vitamin D deficiency (Primary Dx) Social History [...] Primary documented in this encounter Care Teams Manager Fiber Relationship Specialty Start Date End Date Kassie Reyna MD [address] [place] [address] PCP - General Internal Medicine 12/24/21 Dialysis, [facility] [address] [place] [address] Dialysis Unit 09/05/22 Lana Quintana MD [address] [place] [address] Physician Nephrology 09/11/22 Gómez Whitley MD [address] [place] [address] Surgery, General 10/25/22 documented as of this encounter
--- OUTSIDE RECORDS SUMMARY | 2025-05-14 07:20 | XMS_ITS | Encounter Summary ---
Author Organization [facility] Address [address] [place] [address] Phone Care Team Providers Care Court Magistrate Name Role Phone Kassie Reyna MD Primary Care Provider + Encounter Details Date Type Department Care Team (Late st Contact Info) Description 11/03/2024 Procedure Pass [facility] Cardiac Laundromat Worker 55 [facility], Floor 9, [address] [place] [address] Social History Tobacco Use Types [...] on filedocumented in this encounter Care Teams Court Magistrate Relationship Specialty Start Date End Date Kassie Reyna MD [address] [place] [address] PCP - General Internal Medicine 12/17/21 documented as of this encounter Additional Source Comments The information contained in this document represents components of the legal health record. It is not the complete legal health record.[facility]
--- OUTSIDE RECORDS SUMMARY | 2025-05-14 07:20 | XMS_ITS | Encounter Summary ---
Author Organization [facility] Address [address] [place] [address] Care Team Providers Care Silver Miner Name Role Phone Kassie Reyna MD Primary Care Provider +1- [phone] Encounter Details Date Type Department Care Team (Late st Contact Info) Description 05/30/2023 Scanned Document INTERFACE DEFAULT [address] [place] [id number] System, Provider Not In Social History Tobacco [...] documented as of this encounter Care Teams Silver Miner Relationship Specialty Start Date End Date Kassie Reyna MD [address] [address] PCP - General Internal Medicine 07/29/22 documented as of this encounter
--- OUTSIDE RECORDS SUMMARY | 2025-05-14 07:20 | XMS_ITS | Encounter Summary ---
Author Organization [facility] Address [address] [facility] [address] [place] [address] Phone Care Team Providers Care Area Attendant Name Role Phone Kassie Reyna MD Primary Care Provider + Encounter Details Date Type Department Care Team (Late st Contact Info) Description 11/04/2024 Procedure Pass [facility] [address] [place] [address] Social History Tobacco Use Types Packs/Day Years [...] on filedocumented in this encounter Care Teams Area Attendant Relationship Specialty Start Date End Date Kassie Reyna MD [address] [place] [address] PCP - General Internal Medicine 12/17/21 documented as of this encounter Additional Source Comments The information contained in this document represents components of the legal health record. It is not the complete legal health record.[facility]
--- OUTSIDE RECORDS SUMMARY | 2025-05-14 07:20 | XMS_ITS | Encounter Summary ---
Author Organization [facility] Address [address] [place] [address] Phone Care Team Providers Care Sourcing Manager Name Role Phone Kassie Reyna MD Primary Care Provider + Encounter Details Date Type Department Care Team (Late st Contact Info) Description 11/16/[address], Mook [address] [facility], 2nd Floor, [address] [place] [address] Social History Tobacco Use Types Packs/Day Years [...] cell phone pictures and video calls like [employer]. If patient is found to be recording [...] on filedocumented in this encounter Care Teams Sourcing Manager Relationship Specialty Start Date End Date Kassie Reyna MD [address] [place] [address] PCP - General Internal Medicine 12/17/21 documented as of this encounter Additional Source Comments The information contained in this document represents components of the legal health record. It is not the complete legal health record.[facility]
--- OUTSIDE RECORDS SUMMARY | 2025-05-14 07:20 | XMS_ITS | Encounter Summary ---
Author Organization [facility] Address [address] [place] [address] Phone Care Team Providers Care Pasting Machine Operator Name Role Phone Kassie Reyna MD Primary Care Provider + Encounter Details Date Type Department Care Team (Late st Contact Info) Description 11/19/2024 Procedure Pass [facility] [address] [place] [address] Social History Tobacco Use Types [...] cell phone pictures and video calls like [employer]. If patient is found to be recording [...] on filedocumented in this encounter Care Teams Pasting Machine Operator Relationship Specialty Start Date End Date Kassie Reyna MD [address] [place] [address] PCP - General Internal Medicine 12/17/21 documented as of this encounter Additional Source Comments The information contained in this document represents components of the legal health record. It is not the complete legal health record.[facility]
--- OUTSIDE RECORDS SUMMARY | 2025-05-14 07:20 | XMS_ITS | Encounter Summary ---
Author Organization [facility] Address [address] [facility] [address] [place] [address] Phone Care Team Providers Care Sand Polisher Name Role Phone Kassie Reyna MD Primary Care Provider + Encounter Details Date Type Department Care Team (Late st Contact Info) Description 11/02/2024 Procedure Pass [facility] [address] [place] [address] Social History Tobacco Use Types Packs/Day Years [...] on filedocumented in this encounter Care Teams Sand Polisher Relationship Specialty Start Date End Date Kassie Reyna MD [address] [place] [address] PCP - General Internal Medicine 12/17/21 documented as of this encounter Additional Source Comments The information contained in this document represents components of the legal health record. It is not the complete legal health record.[facility]
--- OUTSIDE RECORDS SUMMARY | 2025-05-14 07:20 | XMS_ITS | Encounter Summary ---
Author Organization [facility] Address [address] [place] [address] Phone Care Team Providers Care Skin Peeling Machine Operator Name Role Phone Kassie Reyna MD Primary Care Provider + Encounter Details Date Type Department Care Team (Late st Contact Info) Description 11/09/2024 Procedure Pass [facility] Cardiac Hairspring Studder [address] [facility], Floor 9, [address] [place] [address] Social History Tobacco Use Types [...] on filedocumented in this encounter Care Teams Skin Peeling Machine Operator Relationship Specialty Start Date End Date Kassie Reyna MD [address] [place] [address] PCP - General Internal Medicine 12/17/21 documented as of this encounter Additional Source Comments The information contained in this document represents components of the legal health record. It is not the complete legal health record.[facility]
--- OUTSIDE RECORDS SUMMARY | 2025-05-14 07:20 | XMS_ITS | Encounter Summary ---
Author Organization [facility] Address [address] [place] [address] Care Team Providers Care Folded Cloth Taper Name Role Phone Kassie Reyna MD Primary Care Provider +1- [phone] Encounter Details Date Type Department Care Team (Late st Contact Info) Description 08/18/2023 Abstract [facility] 800 [facility] 800 [facility] 4th [place] [address] Taylor De León, MIKE Social History Tobacco [...] documented as of this encounter Care Teams Folded Cloth Taper Relationship Specialty Start Date End Date Kassie Reyna MD 34[address] [facility] 1 [place] [address] PCP - General Internal Medicine 07/29/22 documented as of this encounter
--- OUTSIDE RECORDS SUMMARY | 2025-05-14 07:20 | XMS_ITS | Patient Health Record ---
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 Problem Tuberculosis screening (145636062) Screening for tuberculosis (Z11.1) Active confirmed Problem Vaginal candidiasis (87702871) Vaginal candidiasis (B37.3) Active confirmed Problem End stage renal disease (57258773) ESRD (end stage renal disease) (N18.6) Active confirmed Plan Of Treatment No Information Insurance Providers Payer Name Payer Address Payer Phone Subscriber Number Group Number Insured Name Patient Relationship to Insured Coverage Start Date Coverage End Date [facility] [address] [place] [address] [id number] Flavio Morris Self - patient is the insured [employer] [address] [place] [phone] [id number] Flavio Morris Self - patient is the insured Medical (General) History Medical History History ICD Code seizure chronic kidney stage 4 PATIENT HAD ECLAMPSIA 2011 Surgical History Surgery Date(Month/Year) parathyroid C&S
--- OUTSIDE RECORDS SUMMARY | 2025-05-14 07:20 | XMS_ITS | Encounter Summary ---
Author Organization [facility] Address [address] [place] [address] Phone Care Team Providers Care Pt Skilled Name Role Phone Kassie Reyna MD Primary Care Provider + Encounter Details Date Type Department Care Team (Late st Contact Info) Description 11/15/2024 Procedure Pass [facility] Cardiac Insurance Counselor [address] [facility], Floor 9, [address] [place] [address] Social History Tobacco Use Types [...] cell phone pictures and video calls like [email or web address]. If patient is found to be recording [...] on filedocumented in this encounter Care Teams Pt Skilled Relationship Specialty Start Date End Date Kassie Reyna MD [address] [place] [address] PCP - General Internal Medicine 12/17/21 documented as of this encounter Additional Source Comments The information contained in this document represents components of the legal health record. It is not the complete legal health record.[facility]
--- OUTSIDE RECORDS SUMMARY | 2025-05-14 07:20 | XMS_ITS | Encounter Summary ---
Author Organization [facility] Address [address] [place] [address] Care Team Providers Care Deportation Officer Name Role Phone Kassie Reyna MD Primary Care Provider +1- [phone] Dialysis, [facility] Unavailable +[phone] Lana Quintana MD Unavailable [phone] Gómez Whitley MD Unavailable Encounter Details Date Type Department Care Team (Late st Contact Info) Description 08/06/2023 Mobile [facility] Physicians Department of Nephrology [address] [address] Lana Quintana MD [address] [place] [address] Environmental allergies (Primary Dx); Essential hypertension; Allergy, [...] sequela documented in this encounter Care Teams Deportation Officer Relationship Specialty Start Date End Date Kassie Reyna MD [address] [place] [address] PCP - General Internal Medicine 12/24/21 Dialysis, [facility] [address] [place] [address] Dialysis Unit 09/05/22 Lana Quintana MD [address] [place] [address] Physician Nephrology 09/11/22 Gómez Whitley MD [address] [place] [address] Surgery, General 10/25/22 documented as of this encounter
--- OUTSIDE RECORDS SUMMARY | 2025-05-14 07:20 | XMS_ITS | Encounter Summary ---
Author Organization [facility] Address [address] [place] [address] Phone Care Team Providers Care Channel Sales Director Name Role Phone Kassie Reyna MD Primary Care Provider + Encounter Details Date Type Department Care Team (Late st Contact Info) Description 11/11/2024 Procedure Pass [facility] [address] [place] [address] Social History Tobacco Use Types Packs/Day Years [...] on filedocumented in this encounter Care Teams Channel Sales Director Relationship Specialty Start Date End Date Kassie Reyna MD [address] [place] [address] PCP - General Internal Medicine 12/17/21 documented as of this encounter Additional Source Comments The information contained in this document represents components of the legal health record. It is not the complete legal health record.[facility]
--- OUTSIDE RECORDS SUMMARY | 2025-05-14 07:21 | XMS_ITS | Encounter Summary ---
Author Organization [facility] [address] Care Team Providers Care Steam Engineer Name Role Phone Antonio Sellers MD Primary Care Provider [phone] Encounter Details Date Type Department Care Team (Late st Contact Info) Description 12/11/2024 Lab Requisition [facility] [address] [facility] [place] [address] Malick Arechiga MD [address] [place] [address] Other disorders of electrolyte and [...] LAB CHEMISTRY METHOD 12/11/2024 2:08 PM EDT [facility] Blood Venous blood specimen / Unknown 12/11/2024 12:00 PM EDT 12/11/2024 2:00 PM EDT us Malick Arechiga MD LAB BLOOD ORDERABLES Final Re sult [facility] [address] [place] [address], documented in this encounter Visit Diagnoses Diagnosis Other disorders of electrolyte and fluid balance, not elsewhere classified documented in this encounter Additional Health Concerns Infection Onset Date Last Indicated Resolved Time Respiratory Rule-Out 02/22/2025 02/22/2025 025 3:53 PM EDT COVID-19 Rule-Out 02/22/2025 02/22/2025 02/22/2025 3:53 PM EDT documented as of this encounter Care Teams Steam Engineer Relationship Specialty Start Date End Date Antonio Sellers MD [address] [place] [address] PCP - General Internal Medicine 04/25/25 documented as of this encounter
--- OUTSIDE RECORDS SUMMARY | 2025-05-14 07:21 | XMS_ITS | Encounter Summary ---
Author Organization [facility] Address [address] [place] [address] Care Team Providers Care Police Officer Name Role Phone Kassie Reyna MD Primary Care Provider +[phone]- [phone] Reason for Visit * Reason Comments Kidney Transplant Evaluation Encounter Details Date Type Department Care Team (Late st Contact Info) Description 06/24/2022 Documentation [facility] [address] [facility] [address] [facility] 4th [place] [address] Linnea De León, MIKE Social History Tobacco [...] León RN - 06/24/2022 8:30 AM EST [facility] Kidney Transplant Program- Medical Review Board Transplant Nurse Coordinator Summary REFERRING PROVIDER: Jenifer Cavazos PRIMARY CARE PROVIDER: Jenifer Cavazos TRANSPLANT NURSE COORDINATOR: LINNEA DE LEÓN NAME: Flavio Morris , [id number] AGE: 36 y.o. GENDER: female ETHNICITY: [facility] [address] [address] Transplant Phase: Kidney Transplant Evaluation - 06/27/2021 [...] FSG) Transplant Evaluation Team: Dietitian: Noa Luis Instructor Military Science: Charley Villagomez Referring Physician: Jenifer Cavazos Coordinator: Jonh Osorio Transplant Surgeon: Isidoro Colon Telecasting Technician: Cory Tellez Associate Coordinator: Katey Parr Patient Active Problem List Diagnosis SNOMED CT(R) ??? ESRD (end stage renal disease) on dialysis (HC Code) (HC CODE) (HC Code) END STAGE RENAL FAILURE ON DIALYSIS ??? Essential hypertension, benign BENIGN ESSENTIAL HYPERTENSION ??? Seizures (HC Code) (HC CODE) (HC Code) SEIZURE ??? [facility] BACTEREMIA DUE TO [...] 02/01/2020 and completed initial evaluation at the [facility] on 06/27/2021. Has been [...] documented as of this encounter Care Teams Police Officer Relationship Specialty Start Date End Date Kassie Reyna MD [address] [address] PCP - General Internal Medicine 07/29/22 documented as of this encounter
--- OUTSIDE RECORDS SUMMARY | 2025-05-14 07:21 | XMS_ITS | Encounter Summary ---
Author Organization [facility] Address [address] [place] [address] Care Team Providers Care Filing And Polishing Supervisor Name Role Phone Kassie Reyna MD Primary Care Provider +1- [phone] Encounter Details Date Type Department Care Team (Late st Contact Info) Description 06/28/2021 Abstract [facility] [address] [facility] [address] [facility] 4th [place] [address] Maritza Plascencia Social History Tobacco Use Types [...] documented as of this encounter Care Teams Filing And Polishing Supervisor Relationship Specialty Start Date End Date Kassie Reyna MD [address] [address] PCP - General Internal Medicine 07/29/22 documented as of this encounter
--- OUTSIDE RECORDS SUMMARY | 2025-05-14 07:21 | XMS_ITS | Encounter Summary ---
Author Organization [facility] Address [address] [place] [address] Care Team Providers Care Precision Jig Grinder Name Role Phone Kassie Reyna MD Primary Care Provider [phone]- [phone] Encounter Details Date Type Department Care Team (Late st Contact Info) Description 07/26/2022 Abstract [facility] [address] [facility] [address] [facility] 2nd [place] [address] Referring, No Social History Tobacco Use Types [...] documented as of this encounter Care Teams Precision Jig Grinder Relationship Specialty Start Date End Date Kassie Ryena MD [address] [address] PCP - General Internal Medicine 07/29/22 documented as of this encounter
--- OUTSIDE RECORDS SUMMARY | 2025-05-14 07:21 | XMS_ITS | Encounter Summary ---
Author Organization [facility] Address [address] [place] [address] Care Team Providers Care Forder Operator Name Role Phone Kassie Reyna MD Primary Care Provider [phone]- [phone] Encounter Details Date Type Department Care Team (Late st Contact Info) Description 12/13/2020 Abstract [facility] [address] [facility] [address] [facility] [address] [place] [address] Katey Parr Social History Tobacco Use Types [...] documented as of this encounter Care Teams Forder Operator Relationship Specialty Start Date End Date Kassie Reyna MD [address] [address] PCP - General Internal Medicine 07/29/22 documented as of this encounter
--- OUTSIDE RECORDS SUMMARY | 2025-05-14 07:21 | XMS_ITS | Encounter Summary ---
Author Organization [facility] Address [address] [place] [address] Care Team Providers Care Package Center Supervisor Name Role Phone Kassie Reyna MD Primary Care Provider +1- [phone] Encounter Details Date Type Department Care Team (Late st Contact Info) Description 08/03/2021 Scanned Document [facility] [address] [facility] [address] [facility] 4th [place] [address] External, Provider Social History Tobacco Use Types [...] PM EST Influenza A 08/07/2021 08/07/2021 08/08/2021 7:1 9 PM EST R/O Respiratory Virus 06/26/2022 06/26/20222022 [...] documented as of this encounter Care Teams Package Center Supervisor Relationship Specialty Start Date End Date Kassie Reyna MD [address] [address] PCP - General Internal Medicine 07/29/22 documented as of this encounter
--- OUTSIDE RECORDS SUMMARY | 2025-05-14 07:21 | XMS_ITS | Encounter Summary ---
Author Organization [facility] Address [address] [place] [address] Care Team Providers Care Game Author Name Role Phone Kassie Reyna MD Primary Care Provider +1- [phone] Reason for Visit * Reason Comments Hospital Discharge Follow Up Encounter Details Date Type Department Care Team (Late st Contact Info) Description 02/08/2021 Patient Outreach [facility] [address] [place] [address] Jo Mueller RN Hospital Discharge Follow Up [...] documented as of this encounter Care Teams Game Author Relationship Specialty Start Date End Date Kassie Reyna MD [address] [address] PCP - General Internal Medicine 07/29/22 documented as of this encounter
--- OUTSIDE RECORDS SUMMARY | 2025-05-14 07:21 | XMS_ITS | Encounter Summary ---
Author Organization [facility] Address [address] [place] [address] Phone Care Team Providers Care Superintendent Greens Name Role Phone Kassie Reyna MD Primary Care Provider + Encounter Details Date Type Department Care Team (Late st Contact Info) Description 11/01/2024 Procedure Pass [facility] Emergency Imaging, [address], Floor 1 [place] [address] Social History Tobacco Use Types Packs/Day Years [...] 2:14 AM EDT Daria Arechiga RN * [place] Suicide Severity Rating Scale (Screener/Recent Self-Report) Question [...] on filedocumented in this encounter Care Teams Superintendent Greens Relationship Specialty Start Date End Date Kassie Reyna MD [address] [place] [address] PCP - General Internal Medicine 12/17/21 documented as of this encounter Additional Source Comments The information contained in this document represents components of the legal health record. It is not the complete legal health record.[facility]
--- OUTSIDE RECORDS SUMMARY | 2025-05-14 07:21 | XMS_ITS | Encounter Summary ---
Author Organization [facility] Address [address] [place] [address] Care Team Providers Care Gluer And Wedger Name Role Phone Kassie Reyna MD Primary Care Provider +1- [phone] Dialysis, [facility] Unavailable [phone] Lana Quintana MD Unavailable [phone] Gómez Whitley MD Unavailable Encounter Details Date Type Department Care Team (Late st Contact Info) Description 10/25/2022 Scanned Document [facility] Department of Nephrology and Access Surgery [place] [address] [place] [phone] Woody Freire, DO [address] [facility] [address] [place], [place] [id number] Social History Tobacco Use Types Packs/Day Years [...] on filedocumented in this encounter Care Teams Gluer And Wedger Relationship Specialty Start Date End Date Kassie Reyna MD [address] [place] [address] PCP - General Internal Medicine 12/24/21 Dialysis, [facility] [address] [place] [address] Dialysis Unit 09/05/22 Lana Quintana MD [address] [place] [address] Physician Nephrology 09/11/22 Gómez Whitley MD [address] [place] [address] Surgery, General 10/25/22 documented as of this encounter
--- OUTSIDE RECORDS SUMMARY | 2025-05-14 07:21 | XMS_ITS | Patient Health Record ---
Author Organization [facility] Address [address] [facility] [address] [place] [address] Care Team Providers Care Correction Officer [facility] Name Role Phone Solomon Tee Primary Care [...] W/U Status Risk Notes Problem Chronic pain (79377878) Other chronic pain (G89.29) Active confirmed Plan Of Treatment No Information Insurance Providers Payer Name Payer Address Payer Phone Subscriber Number Group Number Insured Name Patient Relationship to Insured Coverage Start Date Coverage End Date Blue Shield Blue Card [address] [facility] [place] [address] [id number] AMA Flavio Morris Self - patient is the insured Medicare [address] [place]ARC[place] [phone] [id number] Flavio Morris Self - patient is the insured Medical (General) History Medical History History ICD Code cko stage 4 hypertension
--- OUTSIDE RECORDS SUMMARY | 2025-05-14 07:21 | XMS_ITS | Clinical Summary ---
Author Organization [facility] Address [address] [place] [address] Care Team Providers Care Sleeping Car Porter Name Role Phone Kassie Reyna MD Primary Care Provider +[phone]- [phone] Dialysis, [facility] Unavailable [phone] Lana Quintana MD Unavailable [phone] Gómez Whitley MD Unavailable [phone] Allergies Active Allergy Reactions Criticality Noted Date Comments Clonidine Other (See Comments) 02/11/2023 Edema and generalized swelling per patient Gabapentin GI Intolerance/Nausea/ Vomiting,Rash/[place] titis Low 05/27/2019 Dizziness, itching, fatigue Lisinopril Shortness Of Breath High 03/14/2018 Methoxy Polyethylene Glycol-Epoetin Beta Rash/Dermatitis,[place] rtness Of Breath High 09/15/2018 Mircera Tolerated Epogen fine Metoprolol Rash/Dermatitis Low 05/27/2019 Penicillins Hives,Rash/Dermatit is,Anaphylaxis High 10/03/2015 Prednisone GI Intolerance/Nausea/ Vomiting,Rash/[place] titis Medium 10/04/2015 Swelling x 1 episodes. [...] needed for wheezing. Active epoetin michael (EPOGEN,PROCRIT) 67936 UNIT/ML injection Inject 1 mL (20,000 Units total) under the skin 3 (three) times a week on Friday, , Friday. Active Iron Sucrose (VENOFER IV) Infuse 50 mg into a venous catheter once a week. Active carvedilol (COREG) 12.5 MG tablet Take 3 tablets (37.5 mg total) by mouth 2 (two) times a day with meals. Active D3-50 1.25 MG (09722 UT) capsuleIndication s:Vitamin D deficiency TAKE 1 [...] Additional history exists COVID-19 Vaccine ( - 2024-2 6 season) 2025 Hepatitis C Virus Screening Completed 01/23/2021 HIV Screening Completed 08/13/2022, 07/31, 03/27/2020, Additional history exists HPV Vaccines (No Doses Required) Completed Insurance MEDICARE PART A & B [facility] MEDICAID OUT OF STATE [facility] MEDICARE PART A & B Member Subscriber Plan / Payer (Ef fective 2015-Present) Name:Flavio Morris Member ID:[id number] Relation to Subscriber:Self Name:Flavio Morris Subscriber ID:[id number] Payer ID:[id number] Group ID:Not on file Type:Not on file Address: [place] [address] [place] [address] MEDICARE PART A & B Member Subscriber Plan / Payer (Ef fective 2015-Present) Name:Flavio Morris Member ID:[id number] Relation to Subscriber:Self Name:Flavio Morris Subscriber ID:[id number] Payer ID:[id number] Group ID:Not on file Type:Not on file Address: [address] Advance Directives * Full Code (Latest [...] 2:07 AM 05/16/2022 12:39 PM Care Teams Sleeping Car Porter Relationship Specialty Start Date End Date Kassie Reyna MD [address] [place] [address] PCP - General Internal Medicine 12/24/21 Dialysis, [facility] [address] [place] [address] Dialysis Unit 09/05/22 Lana Quintana MD [address] [place] [address] Physician Nephrology 09/11/22 Gómez Whitley MD [address] [place] [address] Surgery, General 10/25/22
--- OUTSIDE RECORDS SUMMARY | 2025-05-14 07:21 | XMS_ITS | Encounter Summary ---
Author Organization [facility] Address [address] [place] [address] Care Team Providers Care Net Front End Developer Name Role Phone Kassie Reyna MD Primary Care Provider [phone]- [phone] Encounter Details Date Type Department Care Team (Late st Contact Info) Description 07/08/2022 Abstract [facility] [address] [facility] [address] [facility] [address] [place] [address] Soni Escalante, [facility] Social History Tobacco Use Types Packs/Day Years [...] documented as of this encounter Care Teams Net Front End Developer Relationship Specialty Start Date End Date Kassie Reyna MD [address] [address] PCP - General Internal Medicine 07/29/22 documented as of this encounter
--- OUTSIDE RECORDS SUMMARY | 2025-05-14 07:21 | XMS_ITS | Encounter Summary ---
Author Organization [facility] Address [address] [place] [address] Care Team Providers Care Stem Processing Machine Operator Name Role Phone Kassie Reyna MD Primary Care Provider [phone]- [phone] Encounter Details Date Type Department Care Team (Late st Contact Info) Description 02/19/2021 Telephone MEDICAL ONCOLOGY [address] [place] [address] Vanessa Serrano RN Social History Tobacco Use [...] as of this encounter Care Teams Stem Processing Machine Operator Relationship Specialty Start Date End Date Kassie Reyna MD [address] [address] PCP - General Internal Medicine 07/29/22 documented as of this encounter
--- OUTSIDE RECORDS SUMMARY | 2025-05-14 07:22 | XMS_ITS | Encounter Summary ---
Author Organization [facility] Address [address] [place] [address] Care Team Providers Care Facilities Flight Check Pilot Name Role Phone Kassie Reyna MD Primary Care Provider +1- [phone] Dialysis, [facility] Unavailable [phone] Lana Quintana MD Unavailable [phone] Gómez Whitley MD Unavailable Encounter Details Date Type Department Care Team (Late st Contact Info) Description 09/11/2022 Scanned Document [facility] Department of Nephrology and Access Surgery [address] [phone] Noa Beatty MD [address] [place] [id number] Social History Tobacco Use Types Packs/Day Years [...] on filedocumented in this encounter Care Teams Facilities Flight Check Pilot Relationship Specialty Start Date End Date Kassie Reyna MD [address] [place] [address] PCP - General Internal Medicine 12/24/21 Dialysis, [facility] [address] [place] [address] Dialysis Unit 09/05/22 Lana Quintana MD [address] [place] [address] Physician Nephrology 09/11/22 Gómez Whitley MD [address] [place] [address] Surgery, General 10/25/22 documented as of this encounter
--- OUTSIDE RECORDS SUMMARY | 2025-05-14 07:22 | XMS_ITS | Encounter Summary ---
Author Organization [facility] Address [address] [place] [address] Care Team Providers Care Heel Sewer Name Role Phone Kassie Reyna MD Primary Care Provider +1- [phone] Dialysis, [facility] Unavailable [phone] Lana Quintana MD Unavailable [phone] Gómez Whitley MD Unavailable [phone] Encounter Details Date Type Department Care Team (Late st Contact Info) Description 09/05/2022 Scanned Document [facility] Department of Nephrology and Access Surgery [place] [address] [place] [phone] Dialysis, [facility] [address] [place] [id number] Social History Tobacco Use Types Packs/Day Years [...] on filedocumented in this encounter Care Teams Heel Sewer Relationship Specialty Start Date End Date Kassie Reyna MD [address] [place] [address] PCP - General Internal Medicine 12/24/21 Dialysis, [facility] [address] [place] [address] Dialysis Unit 09/05/22 Lana Quintana MD [address] [place] [address] Physician Nephrology 09/11/22 Gómez Whitley MD [address] [place] [address] Surgery, General 10/25/22 documented as of this encounter
--- OUTSIDE RECORDS SUMMARY | 2025-05-14 07:22 | XMS_ITS | Clinical Summary ---
Author Organization [facility] Address [facility] [address] Care Team Providers Care Platinumsmith Name Role Phone Donavon Aguirre MD Primary [...] PM EST) Hepatitis C Antibody Negative Negative [facility] Blood specimen (specimen) 06/12/2017 3:52 PM EST 06/12/2017 4:04 PM EST Narrative Resulting Agency Comment Spec In Lab Waldemar Nichols MD CHEMISTRY ORDERABLES Samira l Result [facility] [place] [address] * HIV Screen, 4th Generation (06/12/2017 3:52 PM EST) HIV Ab/Ag Screen Negative Negative [facility] Comment: This 4th Generation HIV [...] Nichols MD CHEMISTRY ORDERABLES Samira l Result [facility] [place] [address] from Last 3 Months or Most Recently Relevant to Health Maintenance Insurance MEDICARE Care Teams Platinumsmith Relationship Specialty Start Date End Date Donavon Aguirre MD PCP - General General Internal Medicine 06/06/17
--- OUTSIDE RECORDS SUMMARY | 2025-05-14 07:22 | XMS_ITS | Clinical Summary ---
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 10/04/19 16 026 Active levETIRAcetam (KEPPRA) 250 mg tablet Take [...] time each day. 90 each 02/24/20 25 026 Active sevelamer carbonate (RENVELA) 800 mg tablet Take 1 tablet (800 mg total) by mouth 3 (three) times a day with meals. Swallow tablet whole; do not crush, break, or chew. 90 each 02/24/20 25 026 Active NIFEdipine XL (PROCARDIA XL) 60 mg 24 hr tablet Take 1 tablet (60 mg total) by mouth 2 (two) times a day. Do not crush, chew, or split. 60 each 03/09/20 25 Active fluticasone propion-salmeter oL (Advair HFA) 230-21 mcg/actuation inhaler Inhale 2 puffs by mouth 2 (two) times a day. 03/02/20 25 Active albuterol 2.5 mg /3 mL (0.083 %) nebulizer solution Inhale 3 mL (2.5 mg total) by mouth every 4 (four) hours if needed for wheezing or shortness of breath. 03/26/20 22 Active Auryxia 210 mg iron tablet Take 2 tablets (420 mg total) by mouth 3 (three) times a day with meals. Active sildenafil (REVATIO) 20 mg tabletIndication s:Pulmonary hypertension ([facility] V24, [facility] V28) Take 1 tablet (20 mg total) by mouth 3 (three) times a day. 90 each 04/04/20 25 Active fluticasone propionate (FLONASE) 50 mcg/actuation nasal spray Administer 2 sprays into each nostril 2 (two) times daily morning and afternoon. Shake gently. Before first use, prime pump. After use, clean tip and replace cap. 04/07/20 25 Active budesonide (PULMICORT) 0.5 mg/2 mL nebulizer solutionIndicati ons:Hyperkalemia ,End-stage renal disease needing dialysis ([facility] V24, [facility] V28),Complicatio n associated with dialysis catheter,ESRD (end stage renal disease) on dialysis ([facility] V24, [facility] V28) Take 2 mL (0.5 mg total) by nebulization 1 (one) time each day. Rinse mouth with water after use to reduce aftertaste and incidence of candidiasis. Do not swallow. 60 mL 04/09/20 25 026 Active formoterol (PERFOROMIST) 20 mcg/2 mL nebulizer solution Take 2 mL (20 mcg total) by nebulization 2 (two) times a day. 60 mL 04/08/20 25 Active cholecalciferol (VITAMIN D-3) 50 mcg (2,000 unit) tablet Take 1 tablet (2,000 Units total) by mouth 1 (one) time each day. 01/23/20 25 025 oxyCODONE (ROXICODONE) 15 mg immediate release tablet Take 1 tablet (15 mg total) by mouth every 4 (four) hours if needed (severe pain). 09/04/19 25 025 sodium chloride (OCEAN) 0.65 % nasal spray Administer 2 sprays into each nostril every 4 (four) hours if needed for congestion. 15 mL 04/07/20 25 025 Active Problems Problem Noted Date Diagnosed Date Sinusitis 04/08/2025 ESRD (end stage renal disease) on dialysis 04/06 Complication associated with dialysis catheter 1 Overview (03/09/2025): Pain Right leg pain 03/08/2025 Hypertension 03/05/2025 ESRD needing dialysis 02/12/2025 Resolved Problems Problem Noted Date Diagnosed Date Resolved Date Chest pain, unspecified type 04/02/2025 04/03/2025 Hyperkalemia 03/01/2025 04/03/2025 Encounters Date Type Department Care Team Description 04/24/2025 9:42 AM EST - 04/24/2025 12:48 PM EST Emergency [facility] Emergency [address] [place] [phone] Zhen Arechiga MD Anemia, unspecified type (Primary Dx); Heat syncope, subsequent encounter; Other chronic pain Discharge Disposition: Home or Self Care 04/06/2025 1:39 AM EST - 04/08/2025 11:01 AM EST Hospital Encounter [facility] Intermediate Care Unit [address] [place] [phone] Jermaine Rivera MD Bell, Alistair A, MD Nasser, Nada S, MD Anemia, unspecified type (Primary Dx); Hyperkalemia; Chronic kidney disease, unspecified CKD stage; End-stage renal disease needing dialysis (CMS/HCC V24, CMS/HCC V28); Complication associated with dialysis catheter; ESRD (end stage renal disease) on dialysis (CMS/HCC V24, CMS/HCC V28) Discharge Disposition: Home or Self Care 04/01/2025 11:32 PM EDT - 04/04/2025 4:33 PM EST Hospital Encounter [facility] Intermediate Care Unit [address] [place] [phone] [place], Lisa, Celia Hernandez MD Sondhi, Vikram, MD Japaridze, Anna, MD Mogul, Ashley, MD Bell, Alistair A, MD Chest pain, unspecified type (Primary Dx); ESRD needing dialysis ([facility] V24, [facility] V28); Pulmonary hypertension ([facility] V24, [facility] V28) Discharge Disposition: Home-Health Care [facility] 03/05/2025 3:16 AM EDT - 03/12/2025 9:41 AM EDT Hospital Encounter [facility] Urology Unit [address] [place] [phone] Andi Weldon MD Santoyo-Pacheco, Omar D, MD Alam, Aroosa, MD Kela, Kashyap Devendrabhai, MD Right leg pain (Primary Dx) Discharge Disposition: Home or Self Care 03/01/2025 4:51 PM EDT - 03/02/2025 1:26 PM EDT Hospital Encounter [facility] Intermediate Care Unit [address] [place] [phone] La Correa MD Jones, Christopher, MD Alam, MD Dakotah Non-compliance with renal dialysis ([facility] V24) (Primary Dx); Hyperkalemia; Opioid dependence with opioid-induced disorder ([facility] V24, [facility] V28); Other chronic pain; Chest pain, unspecified type; Uncontrolled hypertension Discharge Disposition: Home or Self Care 02/12/2025 2:49 PM EDT - 02/22/2025 7:11 PM EDT Hospital Encounter [facility] Intermediate Care Unit [address] [place] [phone] Tiesha Shelby DO Flores, Carlos M, MD Jones, Christopher, MD Santoyo-Pacheco, Omar D, MD Kokosadze, Estate, MD Zipagan, James T, MD ESRD needing dialysis ([facility] V24, [facility] V28) (Primary Dx); Hyperkalemia; Chronic pain syndrome; Edema of right upper arm Discharge Disposition: Home or Self Care from Last 3 Months Surgical History Surgery Date Site/Laterality Comments SECTION AV FISTULA PLACEMENT Left OTHER SURGICAL HISTORY left internal jugular vein placement Medical History Medical History Date Comments Unspecified asthma(493.90) DX:Un specified asthma(493.90) Hypertension Systolic CHF ([facility] V24, [facility] V28) Interstitial lung disease ([place] V24, [facility] V28) Pulmonary hypertension ([facility] V24, [facility] V28 ) Tricuspid regurgitation ESRD (end stage renal diseas e) ([facility] V24, [facility] V28) Chronic hypoxic respiratory failure ([facility] V24, [facility] V28) Seizure ([facility] V24, [facility] V28) Family History Medical History Relation Name Comments Diabetes Maternal Grandmother Kidney disease Maternal Grandmother Diabetes Mother Hypertension Mother uncle, mat gmot her ESRD Mother's Sister Relation Name Status Comments Maternal Grandmother Mother Mother's Sister Social History Tobacco Use Types Packs/Day Years Used Date Smoking Tobacco: Never Smokeless Tobacco: Never Tobacco Cessation:Counseling Given: Not Answered Alcohol Use Standard Drinks/Week Comments Never 0 [...] ed Within the last 3 months, ho w many times did you visit the emergency [...] care for your loved ones. For example, director of child welfare services or elderly care for an older adult? [...] not to disclose 2024 8:46 AM EST Last Filed Vital Signs Vital Sign Reading Time Taken Comments Blood Pressure 213/101 04/24/2025 12:36 PM EST Pulse 80 04/24/2025 12:36 PM EST Temperature 36.6 C (97.9 F) 04/24/2025 12:36 PM EST Respiratory Rate 15 04/24/2025 12:36 PM EST Oxygen Saturation 94% 04/24/2025 12:36 PM EST Inhaled Oxygen Concentration - - Weight 61 kg (134 lb 7.7 oz) 04/24/2025 9:34 AM EST Height 165.1 cm (5' 5 ) 04/24/2025 9:34 AM EST Body Mass Index 22.38 04/24/2025 9:34 AM EST Plan of Treatment Health Maintenance Due Date Last Done Comments Drug Screen 1986 Opioid Substance Agreement 1986 Pain Assessment 1986 Hepatitis A Vaccines (1 of 2 - [...] 2025 , 04/03/2021, 05/02/2016, Additional history exists Naloxone Order 08/13/2025 08/13/2024 Cholesterol Screening (Lipid Panel) 12/14/2025 12/14/2020, 07/20/2019 Social Influencers of Health Screening 04/06/2026 04/06/2025 Hypertension/CHF/CAD Annual BMP Blood Test 04/24/2026 04/24/2025, 04/07/2025, 04/06/2025, Additional history exists DTaP,Tdap,and Td Vaccines [...] this topic Medical Devices Implanted Type Area Drug Abuse Program Coordinator Device Identifier Shelf Expiration Date Model / Serial / Lot Cath Glidepath [id number] Order In Mult Of 5ea - [id number] - [id number] Implanted:Qty: 1 on 02/16/2025 by Doc Page MD at [facility] Dialysis Catheters Left: Chest Wall CR [employer]ARD [employer] [id number] 05/01/2026 [id number] / [id number] / [id number] Procedures Procedure Name Priority Date/Time Associated Diagnosis Comments ECG ANNOTATED 04/25/2025 ECG 12-LEAD STAT 04/24/2025 11:38 AM EST CBC WITH AUTO DIFFERENTIAL STAT 04/24/2025 11:30 AM EST COMPREHENSIVE METABOLIC PANEL STAT 04/24/2025 11:30 AM EST TYPE AND SCREEN STAT 04/24/2025 11:30 AM EST CBC AND DIFFERENTIAL STAT 04/24/2025 11:30 AM EST TRICHOMONAS VAGINALIS ANTIGEN STAT 04/24/2025 11:19 AM EST WET PREP, GENITAL STAT 04/24/2025 11: 19 AM EST CHLAMYDIA TRACHOMATIS AND NEISSERIA GONORRHOEAE PCR STAT 04/24/2025 11:19 AM EST ECG OUTSIDE 04/11/2025 ECG ANNOTATED 04/11/2025 HEMODIALYSIS [...] AM EDT POCT GLUCOSE BLOOD Routine 02/12/2025 9 :12 PM EDT OXYGEN THERAPY, ADULT STAT 02/12/2025 [...] EDT from Last 3 Months Results * ECG-Annotated (04/25/2025) Only the most recent of4 resultswithin the time period is included. us Provider Onbase MD ECG ORDERABLES Final Result * ECG 12 lead (04/24/2025 11:38 AM EST) Only the most recent of9 resultswithin the time period is included. Ventricular Rate ECG 79 BPM GEMUSE Atrial Rate 79 BPM GEMUSE P-R Interval 184 ms GEMUSE QRS Duration 82 ms GEMUSE Q-T Interval 378 ms GEMUSE QTc 433 ms GEMUSE P Wave [place] 14 degrees GEMUSE R [place] 9 degrees GEMUSE T [place] 178 degrees GEMUSE ECG Interpretation Sinus rhythm with Premature atrial complexes in a pattern of bigeminy Left ventricular hypertrophy with repolarization abnormality ( Sokolow-Rob , [place] product ) Abnormal ECG When compared with ECG of 06-APR-2025 01:58, Premature atrial complexes are now Present Inverted T waves have replaced nonspecific T wave abnormality in Inferior leads QT has shortened Confirmed by MEKA JIN ([id number]) on 04/24/2025 6:31:30 PM GEMUSE 04/24/2025 11:3 8 AM EST 04/24/2025 6:31 PM EST us Zhen Arechiga MD ECG ORDERABLES Final Resul t GEMUSE * (ABNORMAL) CBC auto differential (04/24/2025 11:30 AM EST) Only the most recent of20 resultswithin the time period is included. WBC 8.2 4.8 - 10.8 K/mcL LAB HEMETOLOGY METHOD 04/24/2025 11:57 AM [facility] RBC 3.10(L) 3.80 - 4.80 M/mcL LAB HEMETOLOGY METHOD 04/24/2025 11:57 AM [facility] Hemoglobin 9.2(L) 11.5 - 16.0 g/dL LAB HEMETOLOGY METHOD 04/24/2025 11:57 AM [facility] Hematocrit 29.8(L) 35.0 - 47.0 % LAB HEMETOLOGY METHOD 04/24/2025 11:57 AM [facility] MCV 97.4 79.0 - 98.0 FL LAB HEMETOLOGY METHOD 04/24/2025 11:57 AM [facility] MCH 30.1 27.0 - 32.0 pcg LAB HEMETOLOGY METHOD 04/24/2025 11:57 AM [facility] MCHC 30.9(L) 32.0 - 37.0 g/dL LAB HEMETOLOGY METHOD 04/24/2025 11:57 AM [facility] RDW 16.1(H) 11.0 - 15.0 % LAB HEMETOLOGY METHOD 04/24/2025 11:57 AM [facility] Platelets 176 130 - 400 K/mcL LAB HEMETOLOGY METHOD 04/24/2025 11:57 AM [facility] MPV 9.9 7.0 - 11.0 FL LAB HEMETOLOGY METHOD 04/24/2025 11:57 AM [facility] NRBC 0.0 <1.0 % LAB HEMETOLOGY METHOD 04/24/2025 11:57 AM [facility] NRBC Absolute 0.00 <0.10 K/mcL LAB HEMETOLOGY METHOD 04/24/2025 11:57 AM [facility] Neutrophils Relative 74.2 % LAB HEMETOLOGY METHOD 04/24/2025 11:57 AM [facility] Lymphocytes Relative 8.2 % LAB HEMETOLOGY METHOD 04/24/2025 11:57 AM [facility] Monocytes Relative 9.2 % LAB HEMETOLOGY METHOD 04/24/2025 11:57 AM [facility] Eosinophils Relative 7.4 % LAB HEMETOLOGY METHOD 04/24/2025 11:57 AM [facility] Basophils Relative 0.5 % LAB HEMETOLOGY METHOD 04/24/2025 11:57 AM [facility] Immature Granulocytes Relative 0.5 % LAB HEMETOLOGY METHOD 04/24/2025 11:57 AM [facility] Neutrophils Absolute 6.06 1.50 - 7.00 K/mcL LAB HEMETOLOGY METHOD 04/24/2025 11:57 AM [facility] Lymphocytes Absolute 0.67(L) 1.00 - 5.00 K/mcL LAB HEMETOLOGY METHOD 04/24/2025 11:57 AM [facility] Monocytes Absolute 0.75 0.20 - 1.00 K/mcL LAB HEMETOLOGY METHOD 04/24/2025 11:57 AM EST [facility] Eosinophils Absolute 0.60(H) 0.00 - 0.50 K/[facility] LAB HEMETOLOGY METHOD 04/24/2025 11:57 AM EST [facility] Basophils Absolute 0.04 0.00 - 0.20 K/[facility] LAB HEMETOLOGY METHOD 04/24/2025 11:57 AM EST [facility] Immature Granulocytes Absolute 0.04(H) 0.00 - 0.03 K/[facility] LAB HEMETOLOGY METHOD 04/24/2025 11:57 AM [facility] Blood Venous blood specimen / Unknown Venipuncture / Unknown 04/24/2025 11:30 AM EST 04/24/2025 11:40 AM EST Zhen Arechiga MD LAB BLOOD ORDERABLES Final Result [facility] [address] [place] [address], [place] [phone] * Type and screen (04/24/2025 11:30 AM EST) Only the most recent of4 resultswithin the time period is included. ABO Group O 04/24/2025 2:03 PM EST [facility] Rh Type Positive 04/24/2025 2:03 PM EST [facility] Antibody Screen Negative 04/24/2025 2:03 PM EST [facility] Blood Venous blood specimen / Unknown Venipuncture / Unknown 04/24/2025 11:30 AM EST 04/24/2025 11:40 AM EST us Zhen Arechiga MD LAB BLOOD BANK TEST ORDERAB LES Final Result [facility] [address] [place] [address], [place] [phone] * (ABNORMAL) Comprehensive metabolic panel (04/24/2025 11:30 AM EST) Only the most recent of5 resultswithin the time period is included. Sodium 134 133 - 145 mmol/L 04/24/2025 12:10 PM [facility] Potassium 4.2 3.5 - 5.5 mmol/L 04/24/2025 12:10 PM [facility] Chloride 94(L) 96 - 110 mmol/L 04/24/2025 12:10 PM [facility] CO2 30 21 - 32 mmol/L 04/24/2025 12:10 PM [facility] Anion Gap 10 3 - 11 04/24/2025 12:10 PM [facility] Glucose 115(H) 70 - 100 mg/dL 04/24/2025 12:10 PM [facility] BUN 32(H) 5 - 25 mg/dL 04/24/2025 12:10 PM [facility] Creatinine 5.43(H) 0.50 - 1.10 mg/dL 04/24/2025 12:10 PM [facility] eGFR 10(L) >=60 mL/min/1. 73m2 04/24/2025 12:10 PM [facility] Comment:Calculation based on the Chronic Kidney Disease Epidemiology Collaboration (CKD-EPI) equation refit without adjustment for race. BUN/Creatinine Ratio 5.9 04/24/2025 12:10 PM [facility] Calcium 7.7(L) 8.5 - 10.5 mg/dL 04/24/2025 12:10 PM [facility] AST (SGOT) 19 10 - 42 unit/L 04/24/2025 12:10 PM [facility] ALT (SGPT) 29 10 - 60 unit/L 04/24/2025 12:10 PM [facility] Alkaline Phosphatase 177(H) 42 - 121 unit/L 04/24/2025 12:10 PM [facility] Total Protein 7.6 6.0 - 8.0 g/dL 04/24/2025 12:10 PM [facility] Albumin 3.9 3.2 - 5.0 g/dL 04/24/2025 12:10 PM [facility] Total Bilirubin 0.4 0.0 - 1.4 mg/dL 04/24/2025 12:10 PM [facility] Blood Venous blood specimen / Unknown Venipuncture / Unknown 04/24/2025 11:30 AM EST 04/24/2025 11:40 AM EST Zhen Arechiga MD LAB BLOOD ORDERABLES Final Result Performing Organization Address City/[facility]/ZIP Co de Phone Number [facility] [address] [place] [address], [place] [phone] * Trichomonas vaginalis antigen (04/24/2025 11:19 AM EST) Pathologist [facility] Trichomonas vaginalis Negative Negative 04/24/2025 11:56 AM [facility] Swab Vaginal structure / Unknown Non-blood Collection / Unknown 04/24/2025 11:19 AM EST 04/24/2025 11:27 AM EST Zhen Arechiga MD LAB MICROBIOLOGY - GENERAL ORDERABLES Final Result [facility] [address] [place] [address], [place] [phone] * Chlamydia trachomatis and Neisseria gonorrhoeae molecular study (04/24/2025 11:19 AM EST) Neisseria gonorrhoeae PCR Negative Negative LAB MOLECULAR DIAGNOSTICS METHOD 04/24/2025 2:27 PM EST [facility] Chlamydia trachomatis PCR Negative Negative LAB MOLECULAR DIAGNOSTICS METHOD 04/24/2025 2:27 PM EST [facility] Swab Vaginal structure / Unknown Non-blood Collection / Unknown 04/24/2025 11:19 AM EST 04/24/2025 11:27 AM EST Zhen Arechiga MD LAB MICROBIOLOGY - GENERAL ORDERABLES Final Result Performing Organization Address [facility] de Phone Number [facility] [address] [place] [address], * Wet prep, genital (04/24/2025 11:19 AM EST) Clue Cells, Wet Prep Negative Negative 04/24/2025 11:56 AM [facility] Yeast, Wet Prep Negative Negative 04/24/2025 11:56 AM EST [facility] Trichomonas, Wet Prep Indeterminate Negative 04/24/2025 11:56 AM EST [facility] Comment:Refer to Trichomonas antigen. Swab Vaginal structure / Unknown Non-blood Collection / Unknown 04/24/2025 11:19 AM EST 04/24/2025 11:27 AM EST Zhen Arechiga MD LAB MICROBIOLOGY - GENERAL ORDERABLES Final Result Performing Organization Address City/[facility]/ZIP Co de Phone Number [facility] [address] [place] [address], [place] [phone] * ECG-Outside (04/11/2025) Provider Onbase ECG ORDERABLES Final Result * (ABNORMAL) Complete blood count (04/07/2025 5:49 AM EST) Only the most recent of2 resultswithin the time period is included. WBC 6.0 4.8 - 10.8 K/mcL LAB HEMETOLOGY METHOD 04/07/2025 7:10 AM [facility] RBC 2.70(L) 3.80 - 4.80 M/mcL LAB HEMETOLOGY METHOD 04/07/2025 7:10 AM [facility] Hemoglobin 8.1(L) 11.5 - 16.0 g/dL LAB HEMETOLOGY METHOD 04/07/2025 7:10 AM [facility] Hematocrit 25.3(L) 35.0 - 47.0 % LAB HEMETOLOGY METHOD 04/07/2025 7:10 AM [facility] MCV 92.7 79.0 - 98.0 FL LAB HEMETOLOGY METHOD 04/07/2025 7:10 AM [facility] MCH 29.7 27.0 - 32.0 pcg LAB HEMETOLOGY METHOD 04/07/2025 7:10 AM [facility] MCHC 32.0 32.0 - 37.0 g/dL LAB HEMETOLOGY METHOD 04/07/2025 7:10 AM [facility] RDW 15.9(H) 11.0 - 15.0 % LAB HEMETOLOGY METHOD 04/07/2025 7:10 AM [facility] Platelets 143 130 - 400 K/mcL LAB HEMETOLOGY METHOD 04/07/2025 7:10 AM [facility] MPV 10.6 7.0 - 11.0 FL LAB HEMETOLOGY METHOD 04/07/2025 7:10 AM [facility] NRBC 0.0 <1.0 % LAB HEMETOLOGY METHOD 04/07/2025 7:10 AM [facility] NRBC Absolute 0.00 <0.10 K/mcL LAB HEMETOLOGY METHOD 04/07/2025 7:10 AM [facility] Blood Venous blood specimen / Unknown Venipuncture / Unknown 04/07/2025 5:49 AM EST 04/07/2025 6:32 AM EST Moy Chilel MD LAB BLOOD ORDERABLES Final Re sult [facility] [address] [place] [address], [place] [phone] * (ABNORMAL) C-reactive protein (04/07/2025 5:49 AM EST) Only the most recent of3 resultswithin the time period is included. [facility] C-Reactive Protein 1.02(H) <=0.50 mg/dL LAB CHEMISTRY METHOD 04/07/2025 5:08 PM [facility] Blood Venous blood specimen / Unknown Venipuncture / Unknown 04/07/2025 5:49 AM EST 04/07/2025 6:32 AM EST Ruth Mckeon MD LAB BLOOD ORDERABLES Final Resu lt Performing Organization Address [facility]/ZIP Co de Phone Number [facility] [address] [place] [address], [place] [phone] * (ABNORMAL) Basic metabolic panel (04/07/2025 5:49 AM EST) Only the most recent of18 resultswithin the time period is included. [facility] Sodium 134 133 - 145 mmol/L LAB CHEMISTRY METHOD 04/07/2025 7:52 AM [facility] Potassium 4.3 3.5 - 5.5 mmol/L LAB CHEMISTRY METHOD 04/07/2025 7:52 AM [facility] Chloride 94(L) 96 - 110 mmol/L LAB CHEMISTRY METHOD 04/07/2025 7:52 AM [facility] CO2 30 21 - 32 mmol/L LAB CHEMISTRY METHOD 04/07/2025 7:52 AM [facility] Anion Gap 10 3 - 11 LAB CHEMISTRY METHOD 04/07/2025 7:52 AM [facility] Glucose 94 70 - 100 mg/dL LAB CHEMISTRY METHOD 04/07/2025 7:52 AM [facility] BUN 34(H) 5 - 25 mg/dL LAB CHEMISTRY METHOD 04/07/2025 7:52 AM [facility] Creatinine 7.30(H) 0.50 - 1.10 mg/dL LAB CHEMISTRY METHOD 04/07/2025 7:52 AM EST [facility] eGFR 7(L) >=60 mL/min/1. 73m2 LAB CHEMISTRY METHOD 04/07/2025 7:52 AM [facility] Comment:Calculation based on the Chronic Kidney Disease Epidemiology Collaboration (CKD-EPI) equation refit without adjustment for race. BUN/Creatinine Ratio 4.7 LAB CHEMISTRY METHOD 04/07/2025 7:52 AM [facility] Calcium 7.8(L) 8.5 - 10.5 mg/dL LAB CHEMISTRY METHOD 04/07/2025 7:52 AM [facility] Blood Venous blood specimen / Unknown Venipuncture / Unknown 04/07/2025 5:49 AM EST 04/07/2025 6:32 AM EST us Moy Chilel MD LAB BLOOD ORDERABLES Final Re sult [facility] [address] [place] [address], * Levetiracetam level (04/06/2025 7:30 AM EST) Levetiracetam 19.0 3.0 - 60.0 ug/mL 04/08/2025 8:04 AM EST [facility] Comment: Steady state trough serum or plasma levels following doses of 1000 to 3000 mg/Day: 3 to 37 ug/mL. The same dosage regimen will typically result in peak levels of 10 to 60 ug/mL, at approximately 1.5 hours post dose. If applicable, any drug confirmation testing reported here was developed and the performance characteristics determined by [facility]. This confirmation testing has not been cleared or approved by the FDA. The laboratory is regulated under CLIA as qualified to perform high-complexity testing. This test is used for patient testing purposes. It should not be regarded as investigational or for research. Test performed at [facility], [address] , [place] [address] Alena Hansen MD, PhD - Security Guards Dispatcher Blood Venous blood specimen / Unknown Venipuncture / Unknown 04/06/2025 7:30 AM EST 04/06/2025 7:39 AM EST Jermaine Rivera MD LAB BLOOD ORDERABLES Fi nal Result Performing Organization Address City/[facility]/ZIP Co de Phone Number [facility] [address] [place] [address] * (ABNORMAL) Phosphorus (04/06/2025 6:10 AM EST) Only the most recent of5 resultswithin the time period is included. Phosphorus 8.6(H) 2.5 - 4.5 mg/dL LAB CHEMISTRY METHOD 04/06/2025 6:49 AM EST [facility] [facility] Blood Venous blood specimen / Unknown Venipuncture / Unknown 04/06/2025 6:10 AM EST 04/06/2025 6:21 AM EST Jermaine Rivera MD LAB BLOOD ORDERABLES Fi nal Result [facility] [address] [place] [address], * Magnesium (04/06/2025 6:10 AM EST) Only the most recent of10 resultswithin the time period is included. Magnesium 2.1 1.9 - 2.6 mg/dL LAB CHEMISTRY METHOD 04/06/2025 6:47 AM EST [facility] Blood Venous blood specimen / Unknown Venipuncture / Unknown 04/06/2025 6:10 AM EST 04/06/2025 6:21 AM EST Jermaine Rivera MD LAB BLOOD ORDERABLES Fi nal Result Performing Organization Address City/[facility]/ZIP Co de Phone Number [facility] [address] [place] [address], [place] [phone] * (ABNORMAL) POCT Glucose, blood (04/06/2025 4:58 AM EST) Only the most recent of8 resultswithin the time period is included. [facility] Glucose POCT 113(H) 70 - 100 mg/dL 04/06/2025 4:59 AM EST [facility] Blood Capillary blood specimen / Unknown 04/06/2025 4:58 AM EST 04/06/2025 5:01 AM EST us Generic Provider Poct LAB POINT OF CARE TEST DOCKED DEVICE UNSOLICITED RESULTS Final Result Performing Organization Address [facility] de Phone Number [facility] [address] [place] [address], [place] [phone] * Troponin I high sensitivity (04/06/2025 3:45 AM EST) Only the most recent of15 resultswithin the time period is included. [facility] High Sensitivity Troponin I 28 <=54 ng/L LAB CHEMISTRY METHOD 04/06/2025 4:17 AM EST [facility] Blood Venous blood specimen / Unknown Venipuncture / Unknown 04/06/2025 3:45 AM EST 04/06/2025 3:50 AM EST Narrative [facility] - 04/06/2025 4:17 AM EST High levels of biotin in samples may falsely decrease hsTroponin values. Use caution when interpreting hsTroponin results in patients taking biotin who exhibit renal impairment (eGFR <60) or in patients taking more than 20 mg/day of biotin. Mariza Rodriges MD LAB BLOOD ORDERABLES Final Res ult Performing Organization Address [facility] Co de Phone Number [facility] [address] [place] [address], [place] [phone] * hCG, serum, qualitative (04/06/2025 2:19 AM EST) Only the most recent of4 resultswithin the time period is included. hCG Qual Negative Negative 04/06/2025 2:43 AM EST [facility] Blood Venous blood specimen / Unknown Venipuncture / Unknown 04/06/2025 2:19 AM EST 04/06/2025 2:26 AM EST Mariza Rodriges MD LAB BLOOD ORDERABLES Final Res ult Performing Organization Address [facility] Co de Phone Number [facility] [address] [place] [address], [place] [phone] * XR Hip 2-3 Views Right (04/03/2025 [...] Signed Date: 04/03/2025 16:52 ET Workstation ID: [id number] Transcribed By: Self Edit Transcribed Date: 04/03/2025 [...] Signed Date: 04/03/2025 16:52 ET Workstation ID: [id number] Transcribed By: Self Edit Transcribed Date: 04/03/2025 [...] Signed Date: 04/03/2025 16:52 ET Workstation ID: [id number] Transcribed By: Self Edit Transcribed Date: 04/03/2025 [...] Signed Date: 04/03/2025 16:52 ET Workstation ID: [id number] Transcribed By: Self Edit Transcribed Date: 04/03/2025 [...] by: Zhen Irwin MD on 04/03/2025 16:57:59 Glenny Rogers MD IMG CT PROCEDURES Final Result * Lavender tube (04/02/2025 8:38 AM EDT) Only the most recent of3 resultswithin the time period is included. Extra Tube Hold for add-ons. 04/02/2025 10:01 AM EDT [facility] Comment:Auto resulted. Blood Venous blood specimen / Unknown 04/02/2025 8:38 AM EDT 04/02/2025 8:44 AM EDT us Glenny Rogers MD LAB BLOOD ORDERABLES Final Res ult Performing Organization Address [facility]/ZIP Co de Phone Number [facility] [address] [place] [address], [place] [phone] * Potassium (04/02/2025 8:38 AM EDT) Only the most recent of2 resultswithin the time period is included. Potassium 5.5 3.5 - 5.5 mmol/L LAB CHEMISTRY METHOD 04/02/2025 9:09 AM EDT [facility] Blood Venous blood specimen / Unknown Venipuncture / Unknown 04/02/2025 8:38 AM EDT 04/02/2025 8:43 AM EDT us Glenny Rogers MD LAB BLOOD ORDERABLES Final Res ult Performing Organization Address [facility] de Phone Number [facility] [address] [place] [address], [place] [phone] * XR Chest 1 View (04/02/2025 2:58 [...] Signed Date: 04/02/2025 07:09 ET Workstation ID: [id number] Transcribed By: Self Edit Transcribed Date: 04/02/2025 [...] Signed Date: 04/02/2025 07:09 ET Workstation ID: [id number] Transcribed By: Self Edit Transcribed Date: 04/02/2025 07:07 ET us Celia Kidd MD IMG XR PROCEDURES Final Result * (ABNORMAL) B-type natriuretic peptide (04/02/2025 12:59 AM EDT) Only the most recent of3 resultswithin the time period is included. BNP 2,324(H) <=100 pcg/mL LAB CHEMISTRY METHOD 04/02/2025 2:47 AM EDT [facility] Blood Venous blood specimen / Unknown Venipuncture / Unknown 04/02/2025 12:59 AM EDT 04/02/2025 1:33 AM EDT Lisa Altman MD LAB BLOOD ORDERABLES Final R esult Performing Organization Address City/[facility]/ZIP Co de Phone Number [facility] [address] [place] [address], [place] [phone] * Lipase (04/02/2025 12:57 AM EDT) Lipase 24 13 - 75 unit/L LAB CHEMISTRY METHOD 04/02/2025 1:58 AM EDT [facility] Blood Venous blood specimen / Unknown Venipuncture / Unknown 04/02/2025 12:57 AM EDT 04/02/2025 1:33 AM EDT Penelope HOGAN LAB BLOOD ORDERABLES Fin al Result Performing Organization Address [facility]/ZIP Co de Phone Number [facility] [address] [place] [address], [place] [phone] * CT Chest wo Contrast (03/10/2025 5:30 [...] Hold for add-ons. 03/10/2025 6:01 PM EDT [facility] Comment:Auto resulted. Blood Venous blood specimen / Unknown Venipuncture / Unknown 03/10/2025 4:36 PM EDT 03/10/2025 4:55 PM EDT us Moise Barraza MD LAB BLOOD ORDERABLES F inal Result Performing Organization Address [facility] Co de Phone Number [facility] [address] [place] [address], [place] [phone] * Culture blood (03/10/2025 4:36 PM EDT) Only the most recent of2 resultswithin the time period is included. Culture, Blood No growth at 5 days 03/15/2025 5:04 PM EDT [facility] Blood Venous blood specimen / Unknown Venipuncture / Unknown 03/10/2025 4:36 PM EDT 03/10/2025 4:53 PM EDT Solomon Gunderson MD LAB MICROBIOLOGY - GENERAL OR DERABLES Final Result Performing Organization Address [facility] de Phone Number [facility] [address] [place] [address], [place] [phone] * IR Remove Tunneled CVC wo Subq [...] Signed Date: 03/08/2025 16:19 ET Workstation ID: [id number] Transcribed By: Self Edit Transcribed Date: 03/08/2025 [...] Signed Date: 03/08/2025 16:19 ET Workstation ID: [id number] Transcribed By: Self Edit Transcribed Date: 03/08/2025 16:17 ET Prince Arguello MD IMG IR PROCEDURES Final Result * SST tube (03/07/2025 11:23 PM EDT) Extra Tube Hold for add-ons. 03/08/2025 1:04 AM EDT [facility] Comment:Auto resulted. Blood Venous blood specimen / Unknown Venipuncture / Unknown 03/07/2025 11:23 PM EDT 03/07/2025 11:28 PM EDT Moise Barraza MD LAB BLOOD ORDERABLES F inal Result [facility] [address] [place] [address], [place] [phone] * Vascular US Duplex Lower Extremity Venous [...] Signed Date: 03/05/2025 08:13 ET Workstation ID: [id number] Transcribed By: Self Edit Transcribed Date: 03/05/2025 [...] No fluid collection. Procedure Note Carlos A Jmiénez MD - 03/05/2025 Ultrasound duplex right lower [...] Signed Date: 03/05/2025 08:13 ET Workstation ID: [id number] Transcribed By: Self Edit Transcribed Date: 03/05/2025 08:13 ET Andi Weldon MD CV VASCULAR PROCEDURES Final [...] Signed Date: 03/05/2025 08:13 ET Workstation ID: [id number] Transcribed By: Self Edit Transcribed Date: 03/05/2025 [...] Signed Date: 03/05/2025 08:13 ET Workstation ID: [id number] Transcribed By: Self Edit Transcribed Date: 03/05/2025 08:12 ET Andi Weldon MD IMG XR PROCEDURES Final Resu lt * APTT (03/05/2025 3:59 AM EDT) aPTT 33.7 24.1 - 39.3 sec LAB COAGULATION METHOD 03/05/2025 4:44 AM EDT [facility] Blood Venous blood specimen / Unknown Venipuncture / Unknown 03/05/2025 3:59 AM EDT 03/05/2025 4:28 AM EDT Andi Weldon MD LAB BLOOD ORDERABLES Final R esult Performing Organization Address [facility] de Phone Number [facility] [address] [place] [address], [place] [phone] * (ABNORMAL) Protime-INR (03/05/2025 3:59 AM EDT) Only the most recent of2 resultswithin the time period is included. Protime 14.2(H) 10.6 - 13.9 sec LAB COAGULATION METHOD 03/05/2025 4:44 AM EDT [facility] INR 1.1 LAB COAGULATION METHOD 03/05/2025 4:44 AM EDT [facility] Blood Venous blood specimen / Unknown Venipuncture / Unknown 03/05/2025 3:59 AM EDT 03/05/2025 4:28 AM EDT Andi Weldon MD LAB BLOOD ORDERABLES Final R esult Performing Organization Address City/[facility] Co de Phone Number [facility] [address] [place] [address], * Respiratory virus panel molecular study (02/22/2025 2:45 PM EDT) Adenovirus Detection by PCR Not Detected Not Detected LAB MICROBIOLOGY METHOD 02/22/2025 3:53 PM EDT [facility] Influenza A PCR Not Detected Not Detected LAB MICROBIOLOGY METHOD 02/22/2025 3:53 PM EDT [facility] Influenza B PCR Not Detected Not Detected LAB MICROBIOLOGY METHOD 02/22/2025 3:53 PM EDT [facility] Coronavirus 229E Not Detected Not Detected LAB MICROBIOLOGY METHOD 02/22/2025 3:53 PM EDT [facility] Coronavirus HKU1 Not Detected Not Detected LAB MICROBIOLOGY METHOD 02/22/2025 3:53 PM EDT [facility] Coronavirus OC43 Not Detected Not Detected LAB MICROBIOLOGY METHOD 02/22/2025 3:53 PM EDT [facility] Coronavirus NL63 Not Detected Not Detected LAB MICROBIOLOGY METHOD 02/22/2025 3:53 PM EDT [facility] Parainfluenza Virus 1 Not Detected Not Detected LAB MICROBIOLOGY METHOD 02/22/2025 3:53 PM EDT [facility] Parainfluenza Virus 2 Not Detected Not Detected LAB MICROBIOLOGY METHOD 02/22/2025 3:53 PM EDT [facility] Parainfluenza Virus 3 Not Detected Not Detected LAB MICROBIOLOGY METHOD 02/22/2025 3:53 PM EDT [facility] Parainfluenza Virus 4 Not Detected Not Detected LAB MICROBIOLOGY METHOD 02/22/2025 3:53 PM EDT [facility] RSV PCR Not Detected Not Detected LAB MICROBIOLOGY METHOD 02/22/2025 3:53 PM EDT [facility] Human Metapneumovirus A and B Not Detected Not Detected LAB MICROBIOLOGY METHOD 02/22/2025 3:53 PM EDT [facility] Rhinovirus/Entero virus Not Detected Not Detected LAB MICROBIOLOGY METHOD 02/22/2025 3:53 PM EDT [facility] Bordetella pertussis Not Detected Not Detected LAB MICROBIOLOGY METHOD 02/22/2025 3:53 PM EDT [facility] Bordetella parapertussis Not Detected Not Detected LAB MICROBIOLOGY METHOD 02/22/2025 3:53 PM EDT [facility] Mycoplasma pneumo by PCR Not Detected Not Detected LAB MICROBIOLOGY METHOD 02/22/2025 3:53 PM EDT [facility] Chlamydia pneumoniae Not Detected Not Detected LAB MICROBIOLOGY METHOD 02/22/2025 3:53 PM EDT [facility] SARS COV-2 Not Detected Not Detected LAB MICROBIOLOGY METHOD 02/22/2025 3:53 PM EDT [facility] Swab Nasopharyngeal structure / Unknown Non-blood Collection / Unknown 02/22/2025 2:45 PM EDT 02/22/2025 2:57 PM EDT [facility] - 02/22/2025 3:53 PM EDT Testing was performed using the [employer] Respiratory Pathogen PCR Assay. All results must [...] MICROBIOLOGY - GENERAL OR DERABLES Final Result [facility] [address] [place] [address], * (ABNORMAL) Hemoglobin and hematocrit (02/22/2025 10:07 AM EDT) Only the most recent of2 resultswithin the time period is included. Hemoglobin 7.0(L) 11.5 - 16.0 g/dL LAB HEMETOLOGY METHOD 02/22/2025 11:24 AM EDT [facility] Hematocrit 22.1(L) 35.0 - 47.0 % LAB HEMETOLOGY METHOD 02/22/2025 11:24 AM EDT [facility] Blood Venous blood specimen / Unknown Venipuncture / Unknown 02/22/2025 10:07 AM EDT 02/22/2025 11:19 AM EDT Steve Espinoza MD LAB BLOOD ORDERABLES Final Re sult [facility] [address] [place] [address], * Transfuse RBC, Leukoreduced (02/20/2025 5:36 PM EDT) Krishna Burgos MD BLOOD TRANSFUSION ORDERABLES Final Result * Prepare RBC: 1 Units, Leukoreduced (02/20/2025 12:52 PM EDT) [facility] Product Code [id number] 02/20/2025 2:44 PM EDT [facility] Unit Number [id number] 02/21/20 2:44 PM EDT [facility] Crossmatch Compatible 02/20/2025 2:20 PM EDT [facility] Dispense Status Transfused 02/20/2025 2:44 PM EDT [facility] Unit ABO Rh OPOS 02/20/2025 2:44 PM EDT [facility] Unit Expiration Date Time [id number] 02/20/2025 2:44 PM EDT [facility] Unit Blood Type 5100 02/20/2025 2:44 PM EDT [facility] Blood Venous blood specimen / Unknown 02/20/2025 12:52 PM EDT 02/20/2025 1:30 PM EDT Krishna Burgos MD BLOOD BANK PRODUCT ORDERABLE S Final Result [facility] [address] [place] [address], * IR Insert Tunneled CVC wo Port [...] Signed Date: 02/16/2025 17:26 ET Workstation ID: [id number] Transcribed By: Self Edit Transcribed Date: 02/16/2025 [...] Signed Date: 02/16/2025 17:26 ET Workstation ID: [id number] Transcribed By: Self Edit Transcribed Date: 02/16/2025 [...] for hematoma, possibly related to muscle tear. Telerichard HOGAN ([id number]) -------- FINAL REPORT -------- Dictated By: Mari Hebert Dictated Date: 02/14/2025 16:40 ET Assigned Physician: Mari Hebert Reviewed and Electronically Signed By: Mari Hebert Signed Date: 02/14/2025 16:45 ET Workstation ID: [id number] Transcribed By: Self Edit Transcribed Date: 02/14/2025 [...] possibly related to muscle tear. Telerad SAMIRA ([id number]) -------- FINAL REPORT -------- Dictated By: Mari Hebert Dictated Date: 02/14/2025 16:40 ET Assigned Physician: Mari Hebert Reviewed and Electronically Signed By: Mari Hebert Signed Date: 02/14/2025 16:45 ET Workstation ID: [id number] Transcribed By: Self Edit Transcribed Date: 02/14/2025 16:40 ET Ashlee Nascimento NP CV VASCULAR PROCEDURES Final Res ult * Hepatitis B surface antigen with reflex to confirmation (02/12/2025 5:20 PM EDT) [facility] Hepatitis B Surface Ag Negative Negative LAB CHEMISTRY METHOD 02/12/2025 8:58 PM EDT [facility] Blood Venous blood specimen / Unknown Venipuncture / Unknown 02/12/2025 5:20 PM EDT 02/12/2025 5:24 PM EDT Narrative [facility] - 02/12/2025 8:58 PM EDT Over the counter supplements containing high doses of biotin may interfere with this assay. If interference is suspected, patients shoud be retested after refraining from biotin supplements for 72 hours. us Sam Leonard MD LAB BLOOD ORDERABLES Final Result [facility] [address] [place] [address], * (ABNORMAL) Iron and TIBC (02/12/2025 5:20 PM EDT) Pathologist [facility] Iron 39(L) 40 - 150 mcg/dL LAB CHEMISTRY METHOD 02/12/2025 6:39 PM EDT [facility] TIBC 169(L) 250 - 450 mcg/dL LAB CHEMISTRY METHOD 02/12/2025 6:39 PM EDT [facility] Iron Saturation 23 15 - 50 % LAB CHEMISTRY METHOD 02/12/2025 6:39 PM EDT [facility] Blood Venous blood specimen / Unknown Venipuncture / Unknown 02/12/2025 5:20 PM EDT 02/12/2025 5:24 PM EDT Solomon Gunderson MD LAB BLOOD ORDERABLES Final Re sult Performing Organization Address City/[facility]/ZIP Co de Phone Number [facility] [address] [place] [address], [place] [phone] * (ABNORMAL) Hepatitis B surface antibody quantitative (02/12/2025 5:20 PM EDT) Pathologist [facility] Hepatitis B Surface Ab Positive (A) Negative LAB CHEMISTRY METHOD 02/12/2025 8:46 PM EDT [facility] Hepatitis B Surface Ab Quantitative 51.6 mIU/mL LAB CHEMISTRY METHOD 02/12/2025 8:46 PM EDT [facility] Blood Venous blood specimen / Unknown Venipuncture / Unknown 02/12/2025 5:20 PM EDT 02/12/2025 5:24 PM EDT Narrative [facility] - 02/12/2025 8:46 PM EDT >=10 mIU/mL is considered to be consistent with immunity. Sam Leonard MD LAB BLOOD ORDERABLES Final Result Performing Organization Address [facility]/ZIP Co de Phone Number [facility] [address] [place] [address], [place] [phone] * Haptoglobin (02/12/2025 5:20 PM EDT) Haptoglobin 107 16 - 200 mg/dL LAB CHEMISTRY METHOD 02/12/2025 6:39 PM EDT [facility] Blood Venous blood specimen / Unknown Venipuncture / Unknown 02/12/2025 5:20 PM EDT 02/12/2025 5:24 PM EDT us Solomon Gunderson MD LAB BLOOD ORDERABLES Final Re sult Performing Organization Address [facility]/ZIP Co de Phone Number [facility] [address] [place] [address], [place] [phone] * Folate (02/12/2025 5:20 PM EDT) Folate 13.8 2.8 - 17.0 ng/ml LAB CHEMISTRY METHOD 02/12/2025 6:52 PM EDT [facility] Blood Venous blood specimen / Unknown Venipuncture / Unknown 02/12/2025 5:20 PM EDT 02/12/2025 5:24 PM EDT us Solomon Gunderson MD LAB BLOOD ORDERABLES Final Re sult Performing Organization Address [facility]/ZIP Co de Phone Number [facility] [address] [place] [address], [place] [phone] * (ABNORMAL) Ferritin (02/12/2025 5:20 PM EDT) Ferritin 1,851(H) 8 - 252 ng/mL LAB CHEMISTRY METHOD 02/12/2025 7:16 PM EDT [facility] Blood Venous blood specimen / Unknown Venipuncture / Unknown 02/12/2025 5:20 PM EDT 02/12/2025 5:24 PM EDT us Solomon Gunderson MD LAB BLOOD ORDERABLES Final Re sult [facility] [address] [place] [address], [place] [phone] * Vitamin B12 (02/12/2025 5:20 PM EDT) [facility] Vitamin B-12 709 250 - 900 pcg/mL LAB CHEMISTRY METHOD 02/12/2025 7:16 PM EDT [facility] Blood Venous blood specimen / Unknown Venipuncture / Unknown 02/12/2025 5:20 PM EDT 02/12/2025 5:24 PM EDT us Solomon Gunderson MD LAB BLOOD ORDERABLES Final Re sult [facility] [address] [place] [address], [place] [phone] * (ABNORMAL) Reticulocyte count (02/12/2025 3:28 PM EDT) [facility] Retic Ct Abs 0.030 0.030 - 0.090 M/[facility] LAB HEMETOLOGY METHOD 02/12/2025 8:16 PM EDT [facility] Retic Ct Pct 1.2 0.7 - 1.7 % LAB HEMETOLOGY METHOD 02/12/2025 8:16 PM EDT [facility] Immature Retic Fract 22.1(H) 2.3 - 15.9 % LAB HEMETOLOGY METHOD 02/12/2025 8:16 PM EDT [facility] Reticulocyte Hemoglobin 30.9 >29.0 pcg LAB HEMETOLOGY METHOD 02/12/2025 8:16 PM EDT [facility] Blood Venous blood specimen / Unknown Venipuncture / Unknown 02/12/2025 3:28 PM EDT 02/12/2025 3:54 PM EDT us Solomon Gunderson MD LAB BLOOD ORDERABLES Final Re sult [facility] [address] [place] [address], [place] [phone] * Hepatic Function Panel (02/12/2025 3:28 PM EDT) Total Protein 7.0 6.0 - 8.0 g/dL LAB CHEMISTRY METHOD 02/12/2025 4:30 PM EDT [facility] Albumin 3.4 3.2 - 5.0 g/dL LAB CHEMISTRY METHOD 02/12/2025 4:30 PM EDT [facility] Total Bilirubin 0.4 0.0 - 1.4 mg/dL LAB CHEMISTRY METHOD 02/12/2025 4:30 PM EDT [facility] Bilirubin, Direct 0.2 0.0 - 0.3 mg/dL LAB CHEMISTRY METHOD 02/12/2025 4:30 PM EDT [facility] Bilirubin, Indirect 0.2 0.0 - 1.1 mg/dL LAB CHEMISTRY METHOD 02/12/2025 4:30 PM EDT [facility] ALT (SGPT) 21 10 - 60 unit/L LAB CHEMISTRY METHOD 02/12/2025 4:30 PM EDT [facility] AST (SGOT) 23 10 - 42 unit/L LAB CHEMISTRY METHOD 02/12/2025 4:30 PM EDT [facility] Alkaline Phosphatase 106 42 - 121 unit/L LAB CHEMISTRY METHOD 02/12/2025 4:30 PM EDT [facility] Blood Venous blood specimen / Unknown Venipuncture / Unknown 02/12/2025 3:28 PM EDT 02/12/2025 3:54 PM EDT us Tiesha Shelby DO LAB BLOOD ORDERABLES Final Re sult [facility] [address] [place] [address], [place] [phone] from Last 3 Months Insurance MEDICARE Advance Directives * Full Code - [...] currently active code status orders. Care Teams Tar Heater Operator Relationship Specialty Start Date End Date Antonio Sellers MD [address] [place] [phone] PCP - General Internal Medicine 04/25/25
[2025-05-14 07:38] LABS: MANUAL DIFF FLAG NO
[2025-05-14 07:47] LABS: Hematocrit 30.2 % (37.0-47.0); Hemoglobin 9.5 g/dl (12.0-16.0); Imm Gran Abs Auto 0.04 X10*3/uL (0.00-0.03); Imm Gran Pct Auto 0.4 % (0.0-0.4); Lymphocytes Absolute Auto 0.6 X10*3/uL (1.2-4.9); Mean Corpuscular HGB Conc 31.5 g/dl (31.0-35.0); Mean Corpuscular Hemoglobin 29.7 pg (27.0-33.0); Mean Corpuscular Volume 94.4 fL (80.0-98.0); NRBC Abs Auto 0.000 X10*3/uL (0.0-0.012); NRBC Pct Auto 0.0 /100WBC (0.0-0.2); Platelet Count 144 X10*3/uL (160-400); Red Blood Count 3.20 X10*6/uL (4.20-5.50); White Blood Count 9.3 X10*3/uL (4.8-10.8)
[2025-05-14 07:48] LABS: Strep A Nucleic Acid Negative (Negative)
[2025-05-14 08:00] LABS: Troponin-I High Sensitivity 39.6 ng/L (<3.5-17.0)
[2025-05-14 08:03] LABS: Alanine Aminotransferase 107 U/L (0-31); Albumin Level 4.2 g/dL (3.5-5.0); Alkaline Phosphatase 180 U/L (39-117); Anion Gap 22 (12-20); Aspartate Amino Transferase 36 U/L (5-31); Blood Urea Nitrogen 67 mg/dL (9-16); Calcium 9.2 mg/dL (8.4-10.2); Carbon Dioxide 21 mmol/L (22-29); Chloride 99 mmol/L (96-108); Creatinine Clr Calc Pharmacy 8.2; Estimated Glomerular Filt Rate 5; Magnesium 2.5 mg/dL (1.6-2.6); Potassium 5.0 mmol/L (3.3-5.1); Sodium 137 mmol/L (135-145); Total Protein 7.6 g/dL (6.5-8.0)
[2025-05-14 08:17] LABS: Resp Syncy Virus RNA Qual PCR NEGATIVE (Negative); SARS COV2 PCR INHOUSE NEGATIVE (Negative)
--- NOTE | 2025-05-14 08:50 | ED.GENADULT ---
HPI - General Adult General Chief complaint: General Medical Stated complaint: CP + diarrhea + fever + chills Time Seen by Provider: 05/14/25 08:11 Source: patient Mode of arrival: ambulatory Limitations: no limitations History of Present Illness ED Provider: Petra Serrato APRN HPI narrative: 39 yr Old female with a history of end-stage renal disease on hemodialysis Friday, and Friday (Followed by Dr Vila), myofascial pain and from on chronic opiates, pulmonary hypertension, anemia of chronic disease, seizures, hypertension presents to the ER with complaints of 48 hours of generalized abdominal pain, diarrhea (more then 20 episodes), fatigue, chills and vomiting x2. also having chest discomfort, palpitations, feels dehydrated. Of note, patient was admitted for emergent dialysis to [facility] and discharged home on Friday. Patient denies cough, sore throat, runny nose, headache, neck pain, neck stiffness, fever, skin rash, shortness of breath, leg swelling or leg pain. She denies any recent travel. She denies any sick contact. She has been taking oxycodone 15 mg every 4 hours for the last 48 hours. Prior to this she was taking it p.r.n.. Related Data Home Medications ?Medication ?Instructions ?Recorded ?Confirmed cholecalciferol (vitamin D3) 50 100 mcg PO DAILY 12/30/24 05/14/25 mcg (2,000 unit) tablet (Vitamin D3) pantoprazole 40 mg tablet,delayed 40 mg PO DAILY@0630 12/30/24 05/14/25 release sildenafil (pulm.hypertension) 20 20 mg PO TID 01/06/25 05/14/25 mg tablet albuterol sulfate 90 mcg/actuation 2 puff inhalation Q6H PRN 02/08/25 05/14/25 aerosol inhaler Shortness Of Breath Or Wheezing minoxidil 2.5 mg tablet 7.5 mg PO DAILY 04/18/25 05/14/25 fluticasone propionate 230 2 puff inhalation BID 05/14/25 05/14/25 mcg-salmeterol 21 mcg/actuation HFA inhaler (Advair HFA) levetiracetam 250 mg tablet 750 mg PO DAILY 05/14/25 05/14/25 polyethylene glycol 3350 17 17 g PO DAILY PRN Constipation 05/14/25 05/14/25 gram/dose oral powder (Miralax) sennosides 8.6 mg tablet (senna) 8.6 mg PO BID 05/14/25 05/14/25 Previous Rx's ?Medication ?Instructions ?Recorded carvedilol 25 mg tablet 25 mg PO BID 90 days #180 tabs 04/18/25 budesonide 0.5 mg/2 mL suspension 0.25 mg inhalation BID PRN 04/19/25 for nebulization shortness of breath or wheezing #60 mL oxycodone 15 mg tablet 15 mg PO Q4H PRN pain 14 days #84 05/02/25 tabs cefuroxime axetil 250 mg tablet 250 mg PO BID 7 days #14 tabs 05/14/25 metronidazole 500 mg tablet 500 mg PO BID 7 days #14 tabs 05/14/25 Allergies Allergy/AdvReac Type Severity Reaction Status Date / Time ANNA Inhibitors Allergy Unknown Verified 05/14/25 06:58 adhesive tape Allergy Unknown Verified 05/14/25 06:58 amlodipine Allergy Unknown Verified 05/14/25 06:58 angiotensin II acetate, human Allergy Itching Verified 05/14/25 06:58 Beta-Blockers Allergy Itching Verified 05/14/25 06:58 (Beta-Adrenergic Bloc cinacalcet (From Sensipar) Allergy Unknown Verified 05/14/25 06:58 clonidine Allergy Anaphylaxis Verified 05/14/25 06:58 doxazosin Allergy Anaphylaxis Verified 05/14/25 06:58 epoetin michael-epbx (From Allergy Unknown Verified 05/14/25 06:58 Retacrit) epoetin beta Allergy Unknown Verified 05/14/25 06:58 furosemide Allergy Unknown Verified 05/14/25 06:58 gabapentin Allergy Anaphylaxis Verified 05/14/25 06:58 heparin Allergy Unknown Verified 05/14/25 06:58 hydralazine Allergy Anaphylaxis Verified 05/14/25 06:58 hydroxyzine Allergy Unknown Verified 05/14/25 06:58 ibuprofen (From Motrin) Allergy Unknown Verified 05/14/25 06:58 isosorbide Allergy Unknown Verified 05/14/25 06:58 labetalol Allergy Eye Verified 05/14/25 06:58 Swelling latex Allergy Itching Verified 05/14/25 06:58 levofloxacin Allergy Itching Verified 05/14/25 06:58 lisinopril Allergy Itching Verified 05/14/25 06:58 losartan Allergy Unknown Verified 05/14/25 06:58 methocarbamol Allergy Unknown Verified 05/14/25 06:58 metoprolol Allergy Unknown Verified 05/14/25 06:58 Penicillins Allergy Hives Verified 05/14/25 06:58 prednisone Allergy Unknown Verified 05/14/25 06:58 spironolactone Allergy Itching Verified 05/14/25 06:58 tramadol Allergy Unknown Verified 05/14/25 06:58 valsartan Allergy Facial Verified 05/14/25 06:58 Swelling diphenhydramine (From AdvReac Unknown Verified 05/14/25 06:58 Benadryl) Review of Systems Review of Systems: Yes all other systems are reviewed and are negative Constitutional: Constitutional: Reports no additional constitutional complaints, Denies body ache(s), Reports chills, Reports fatigue, Denies fever(s), Denies headache(s) and Denies weakness Eyes: Eyes: Reports no additional eye complaints and Denies change in vision ENT: Reports system reviewed and no additional complaints, except as documented, Denies dizziness, Denies headache(s), Denies nasal congestion, Denies nasal discharge and Denies neck pain Cardiovascular: Cardiovascular: Reports no additional cardiovascular complaints, Reports chest pain, Denies leg edema and Denies dyspnea Respiratory: Respiratory: Reports no additional respiratory complaints, Denies cough and Denies dyspnea Gastrointestinal: Gastrointestinal: Reports no additional gastrointestinal complaints, Denies abdominal pain, Reports diarrhea, Reports nausea and Denies vomiting Genitourinary: Genitourinary: Reports no additional female genitourinary complaints and Denies urinary incontinence Musculoskeletal: Musculoskeletal: Reports no additional musculoskeletal complaints, Denies back pain, Denies arthralgias, Denies joint swelling, Denies neck pain, Denies numbness and Denies tingling Integumentary/Breasts: Skin/Breast: Reports system reviewed and no additional complaints, except as docu and Denies rash Neurologic: Reports system reviewed and no additional complaints, except as documented, Denies Abnormal speech present, Denies dizziness, Denies headache(s), Denies numbness, Denies tingling and Denies weakness Endocrine: Endocrine: Reports fatigue PMFSH Past Medical History Attestation statement: The following information was validated with the patient. Source: old records reviewed and nursing notes reviewed Medical History Vaginitis Unspecified asthma Myofascial pain Diastolic CHF Tricuspid regurgitation Recurrent chest pain Pericardial effusion Pulmonary hypertension Iron deficiency anemia ESRD on hemodialysis Chest pain Chronic hypoxic respiratory failure Seizure disorder ESRD (end stage renal disease) on dialysis Family History Family History Other Diabetes mellitus Primary hypertension Social History Social History Household Members: Family Housing: House Do you presently have visiting nurse or other home services: No Patient Tobacco Use Status: Never used Tobacco e-Cigarette/Vaping Use: Never Used Advance Directives: No Advance Directives Information Provided: No Patient : No service: No Current occupational status: unemployed Physical Exam ED Vital Signs: Vital Signs - 24 hr 05/14/25 06:54 05/14/25 09:01 05/14/25 09:05 Temperature 98.3 F 97.8 F Pulse Rate 77 64 72 Respiratory Rate 20 16 Blood Pressure 149/71 H 134/67 138/74 Pulse Oximetry 99 98 Oxygen Delivery Method Room Air Room Air 05/14/25 09:09 05/14/25 09:10 05/14/25 09:37 Temperature Pulse Rate 64 70 Respiratory Rate 16 Blood Pressure 134/78 142/68 H Pulse Oximetry Oxygen Delivery Method 05/14/25 11:28 05/14/25 14:11 Temperature Pulse Rate 78 75 Respiratory Rate 18 16 Blood Pressure 145/74 H Pulse Oximetry 95 Oxygen Delivery Method Room Air Room Air BMI result Body Mass Index 22.0 Const General: cooperative, healthy appearing, comfortable and no acute distress Orientation/consciousness: patient oriented x3 Limitations: no limitations HENMT Head: Yes normal to inspection Ears: hearing grossly normal bilaterally General nose exam: Normal external nose present Face and sinus: Yes normal facial exam Mouth: Normal oral and palatal mucosa present Throat: Yes posterior oropharynx normal Eyes General: appearance normal, both eyes and all related structures Pupils: Equal, round and reactive pupils present Neck Neck: Yes normal visual inspection, Yes full ROM, Yes no lymphadenopathy and Yes no meningeal signs Chest Chest palpation & inspection: normal inspection of the chest Resp Effort & Inspection: normal respiratory effort Auscultation: clear to auscultation bilaterally Cardio Rate: regular rate Rhythm: regular rhythm Peripheral pulses: Peripheral pulses 2+ throughout GI Inspection: Yes normal to inspection Palpation (GI): Soft to palpation, Tenderness to palpation present (GI) (diffusely tender) with no rebound tenderness and no guarding Auscultation: normal bowel sounds Back/Spine/Pelvis Thoracic/Lumbar Spine: thoracic and lumbar spine normal to inspection Skin General skin exam: no rashes or lesions noted Neuro General: patient oriented x3, moves all extremities, no meningeal signs, no focal motor deficits and normal sensation to monofilament Cranial nerves: Yes Equal, round and reactive pupils present Cognition (Neuro): normal cognition Speech: No Abnormal speech present Gait exam (Neuro): Normal gait present Motor exam (neuro): 5/5 motor strength present throughout Extrem General: Yes normal to inspection, Yes no calf tenderness and Yes normal gait Course Course Course Narrative: As far as chest pain >48 hours she has two flat troponins and and an EKG which shows no new changes with a history of atypical for ACS so I doubt ACS. Doubt PE with no hypoxia, tachypnea or tachycardia and no clinical s/s concerning for DVT. Doubt dissection with gradual onset of symptoms. As far as abdominal pain patient has some mild colitis vs diverticulitis on CT scan. Very scant stool here, unsure if this will be enough for stool studies. Labs show baseline elevated renal function. Potassium is normal. Anemia of chronic disease at baseline. UA shows no signs of infection. I would start her on antibiotics for this colitis vs diverticulitis. She has no fever, she has no leukocytosis. She is tolerating genet crackers and juice with no vomiting. She has multiple allergies but tells me she has had ceftriaxone with no issues. I will give her a one time dose here and send her home with ceftin. I will also add flagyl PO. Patient has concerns that her pain will not be controlled at home with her oxycodone 15mg Q4hr PRN. I did discuss her case with our hospitalist team (Wen HOGAN) but she does not meet inpatient criteria. She seems much more comfortable when I went in to examine her and was resting with her eyes closed. We discussed trialing home with her oxycodone and oral antibiotics with strict return precautions which she is unhappy with. She wants to speak to her timing machine operator as she feels she needs emergent dialysis however, I explained to her she does not. She does feel she needs a care plan for future visits and I did tell her I would discuss this with my medical record coder. She does not want to speak to my attending physician whom I will bring to the bedside. Reevaluation(s) Reevaluation #1: [id number]-This patient spoke with my attending physician (Dr Lozada). Per request I have contacted her timing machine operator practice personal vehicle advisor (Dr Longo) and informed him that the patient missed dialysis and updated him on her plan of care. NO need for emergent dialysis. Recommended 1 dose 10g lokelma PO and follow-up outpatient. Explained to patient and she is agreeable with plan of care. Medications Administered Discontinued Medications Generic Name Dose Route Start Last Admin Trade Name Freq PRN Reason Stop Dose Admin Diphenhydramine HCl 25 mg 05/14/25 08:47 05/14/25 09:39 Diphenhydramine Hcl 50 Mg/Ml Vial IVPUSH 05/14/25 08:48 25 mg ONCE ONE Administration Diphenhydramine HCl 25 mg 05/14/25 10:35 05/14/25 10:46 Diphenhydramine Hcl 50 Mg/Ml Vial IVPUSH 05/14/25 10:36 25 mg ONCE ONE Administration Hydromorphone HCl 0.5 mg 05/14/25 08:47 05/14/25 09:37 Hydromorphone Hcl 0.5 Mg/0.5 Ml Syringe IVPUSH 05/14/25 08:48 0.5 mg ONCE ONE Administration Protocol Hydromorphone HCl 1 mg 05/14/25 10:35 05/14/25 10:46 Hydromorphone Hcl 1 Mg/Ml Syringe IVPUSH 05/14/25 10:36 1 mg ONCE ONE Administration Protocol Sodium Chloride 500 mls @ 999 mls/hr 05/14/25 08:47 05/14/25 10:25 Ns IV 05/14/25 09:17 Infused .Q31M STA Infusion Ceftriaxone Sodium 2 gm/ 50 mls @ 100 mls/hr 05/14/25 14:17 05/14/25 15:55 Sodium Chloride IV 05/14/25 14:46 Infused ONCE ONE Infusion Medical Decision Making Medical Decision Making MDM Narrative: 39 yr Old female with a history of end-stage renal disease on hemodialysis Friday, and Friday (Followed by Dr Vila), myofascial pain and from on chronic opiates, pulmonary hypertension, anemia of chronic disease, seizures, hypertension presents to the ER with complaints of 48 hours of generalized abdominal pain, diarrhea (more then 20 episodes), fatigue, chills and vomiting x2. also having chest discomfort, palpitations, feels dehydrated. Of note, patient was admitted for emergent dialysis to [facility] and discharged home on Friday. Patient denies cough, sore throat, runny nose, headache, neck pain, neck stiffness, fever, skin rash, shortness of breath, leg swelling or leg pain. She denies any recent travel. She denies any sick contact. She has been taking oxycodone 15 mg every 4 hours for the last 48 hours. Prior to this she was taking it p.r.n.. Vitals are stable Patient has diffuse abdominal pain with no rebound or guarding. She has positive bowel sounds. Her lungs are clear throughout. No pedal edema. +murmur. will need labs including troponin, stool studies, chest x-ray, EKG, CT, UA will obtain orthostatic vitals patient's last analgesia was at 01:00. will provide 500 mL of normal saline, antiemetic and analgesia Differential Diagnosis Differential Diagnoses: The differential diagnosis associated with the presentation includes CP-ACS, PE, dissection AP-appendicitis, pancreatitis, cholecystitis, infectious diarrhea, C diff Admission/Observation Consideration of admission/observation: Escalation of care including admission/observation considered see course care Consult Healthcare Provider Management of the patient was discussed with: Hospitalist and Tennis Player see course of care Lab Data [facility] Lab Attestation statement: I reviewed the patient's lab results. 05/14/25 07:32 05/14/25 07:32 Labs: Lab Results 05/14/25 05/14/25 Range/Units 07:32 11:00 WBC 9.3 (4.8-10.8) X10*3/uL RBC 3.20 L D (4.20-5.50) X10*6/uL Hgb 9.5 L (12.0-16.0) g/dl Hct 30.2 L (37.0-47.0) % MCV 94.4 (80.0-98.0) fL MCH 29.7 (27.0-33.0) pg MCHC 31.5 (31.0-35.0) g/dl RDW 14.6 (11.0-16.0) % Plt Count 144 L (160-400) X10*3/uL MPV 9.4 (9.4-12.3) fL Immature Gran % (Auto) 0.4 (0.0-0.4) % Neut % (Auto) 82.9 H (45-73) % Lymph % (Auto) 5.9 L (20-40) % Page % (Auto) 6.0 (2-11) % Eos % (Auto) 4.4 H (0-4) % Baso % (Auto) 0.4 (0-2) % Lymph # (Auto) 0.6 L (1.2-4.9) X10*3/uL Page # (Auto) 0.6 (0.1-1.2) X10*3/uL Eos # (Auto) 0.4 (0.0-0.4) X10*3/uL Baso # (Auto) 0.0 (0.0-0.2) X10*3/uL Abs Immat Gran (auto) 0.04 H (0.00-0.03) X10*3/uL Absolute Neuts (auto) 7.7 (2.0-8.3) x10*3/uL Absolute Nucleated RBC 0.000 (0.0-0.012) X10*3/uL Nucleated RBC % (auto) 0.0 (0.0-0.2) /100WBC Sodium 137 (135-145) mmol/L Potassium 5.0 D (3.3-5.1) mmol/L Chloride 99 (96-108) mmol/L Carbon Dioxide 21 L (22-29) mmol/L Anion Gap 22 H (12-20) BUN 67 H (9-16) mg/dL Creatinine 8.27 H* (0.5-1.4) mg/dL Estim Creat Clear Calc 8.2 Estimated GFR 5 Random Glucose 93 (60-115) mg/dL Calcium 9.2 D (8.4-10.2) mg/dL Magnesium 2.5 (1.6-2.6) mg/dL Total Bilirubin 0.6 (0.0-1.0) mg/dL AST 36 H (5-31) U/L ALT 107 H (0-31) U/L Alkaline Phosphatase 180 H (39-117) U/L Troponin I High Sens 39.6 H 48.9 H (<3.5-17.0) ng/L Total Protein 7.6 (6.5-8.0) g/dL Albumin 4.2 (3.5-5.0) g/dL Lipase 129 H (8-78) U/L Beta HCG, Quant < 2 mIU/mL Influenza Type A (PCR) NEGATIVE (Negative) Influenza Type B (PCR) NEGATIVE (Negative) RSV RNA Qual (PCR) NEGATIVE (Negative) SARS-CoV-2 RNA (RT-PCR) NEGATIVE (Negative) S. pyogenes GrpA CHRISTIE Negative (Negative) Independent Interpretation I performed an independent interpretation of an: EKG, Plain X-Ray and CT Scan Interpretation: I independently viewed the x-ray/CT scan and agree with the radiologist's report I independently reviewed the EKG which shows normal sinus rhythm with a rate of 70, unchanged from previous Radiology Impression Discussion of test interpretation with radiology: I have reviewed the radiologist's reading. Radiologist Impression: [place] [id number] XRay Report Signed Patient: Flavio Morris MR#: [id number] : 1985 Acct:[id number] Age/Sex: 39 / F ADM Date: 05/14/25 Loc: .ED Attending Dr: Ordering Physician: Petra Serrato NP Date of Service: 05/14/25 Procedure(s): XR chest 2V Accession Number(s): [id number] cc: Kassie Reyna MD; Petra Serrato NP~ Reason for Exam: cp CLINICAL HISTORY: cp --- Additional Notes or Special Instructions: Pt refusing exam at this time, RN notified--CM 0910 2 view chest x-ray Comparison: CR - XR CHEST 1V - 04/21/25 18:34 EST CR - XR CHEST 1V - 02/12/25 06:05 EDT Findings: Pulmonary vascular congestion without consolidation or effusion. Cardiomediastinal silhouette is stable. No acute fracture. IMPRESSION: Pulmonary vascular congestion without consolidation or effusion. [address] [address] [address] Scan Report Signed Patient: Flavio Morris MR#: [id number] : 1985 Acct:[id number] Age/Sex: 39 / F ADM Date: 05/14/25 Loc: HO.ED Attending Dr: Ordering Physician: Petra Serrato NP Date of Service: 05/14/25 Procedure(s): CT abdomen pelvis wo IV con Accession Number(s): [id number] cc: Kassie Reyna MD; Petra Serrato NP~ Report Number: [id number]: Total DLP = 0.00 mGy-cm Reason for Exam: diffuse AP, diarrhea x 24 hrs CLINICAL HISTORY: diffuse AP, diarrhea x 24 hrs Exam: Unenhanced CT abdomen and pelvis with multiplanar reformats. Comparison: 02/08/2025. Findings: CT abdomen: Lung bases reveal trace bibasilar patchy ground-glass opacity, improved compared with the prior exam common nonspecific although could suggest mild pulmonary mosaic attenuation or minimal pulmonary edema versus mild bibasilar pneumonia/aspiration. Liver is free of gross focal lesions and ductal dilatation. Gallbladder appears unremarkable. Spleen appears unremarkable, measuring 11.7 cm craniocaudad dimension. Pancreas and adrenal glands are grossly unremarkable. Kidneys reveal similar-appearing small size, measuring between 6.3 and 6.6 cm craniocaudad dimension. Kidneys otherwise unremarkable. No urolithiasis or hydroureteronephrosis. A small amount of free intraperitoneal fluid is present. No retroperitoneal masses or adenopathy. Abdominal aorta is normal caliber with mild calcific athero sclerosis. Bowel loops reveal equivocal mild wall thickening involving the proximal right colon and cecum with slight pericolonic stranding, with a few diverticuli in this region, suggesting either nonspecific segmental colitis or mild right-sided diverticulitis. No evidence of perforation or abscess. The appendix is not definitively delineated however there is no secondary CT evidence of appendicitis. No other abnormal bowel wall thickening or distention appreciated. CT pelvis: Uterus and adnexal structures appear unremarkable. No pelvic masses or adenopathy. Osseous structures reveal no destructive osseous lesions. Impression: 1. Findings described above suggesting mild segmental colitis versus uncomplicated diverticulitis involving the proximal ascending colon. 2. Small amount of free intraperitoneal fluid/ascites. External Record Review External record reviewed: Inpatient record reviewed records from [facility]. Patient was admitted for emergent dialysis with hyperkalemia in a wide complex tachycardia requiring ICU admission. She improved with emergent dialysis and was discharged home on 05/11 Discharge Plan Discharge Clinical Impression: Diverticulitis Patient Disposition: Home, Self-Care Instructions: Diverticulitis (ED) Additional Instructions: Take your antibiotics as prescribed. Continue your home medications. Return for fever >100.4, vomiting, bloody stools or concern for dehydration (weakness, dizziness) Follow-up with your outpatient providers. We did speak to your timing machine operator personal vehicle advisor provider (Dr Longo) who recommended a one time dose of lokelma and to follow-up outpatient. You received 10gm of lokelma while you were in our emergency department Prescriptions: New cefuroxime axetil 250 mg tablet 250 mg PO BID 7 Days Qty: 14 0RF metronidazole 500 mg tablet 500 mg PO BID 7 Days Qty: 14 0RF No Action budesonide 0.5 mg/2 mL suspension for nebulization 0.25 mg inhalation BID PRN (Reason: shortness of breath or wheezing) Qty: 60 3RF Rx Instructions: dx: j45.909 asthma oxycodone 15 mg tablet 15 mg PO Q4H PRN (Reason: pain) 14 Days Qty: 84 0RF Rx Instructions: Partial Fill upon patient request. pantoprazole 40 mg tablet,delayed release (DR/EC) 40 mg PO DAILY@0630 cholecalciferol (vitamin D3) [Vitamin D3] 50 mcg (2,000 unit) tablet 100 mcg PO DAILY albuterol sulfate 90 mcg/actuation HFA aerosol inhaler 2 puff inhalation Q6H PRN (Reason: Shortness Of Breath Or Wheezing) sildenafil (pulm.hypertension) 20 mg tablet 20 mg PO TID fluticasone propion-salmeterol [Advair HFA] 230-21 mcg/actuation HFA aerosol inhaler 2 puff inhalation BID levetiracetam 250 mg tablet 750 mg PO DAILY sennosides [senna] 8.6 mg Tablet 8.6 mg PO BID polyethylene glycol 3350 [Miralax] 17 gram/dose Powder 17 g PO DAILY PRN (Reason: Constipation) minoxidil 2.5 mg tablet 7.5 mg PO DAILY carvedilol 25 mg tablet 25 mg PO BID 90 Days Qty: 180 2RF Referrals: Kassie Reyna MD [Primary Care Provider, Internal Medicine] Sylvester Teresa MD [Physician, Nephrology] Print Language: Anguillan
[2025-05-14 09:04] LABS: Lipase 129 U/L (8-78)
--- NOTE | 2025-05-14 11:18 | PHA.MEDREC ---
Pharmacy Consult ? Medication Reconciliation Pharmacy has completed the medication reconciliation. Patient discharged from [facility] 05/11, list of inpatient medications provided. Facility was giving her 750mg of Keppra daily, despite her home medication being 500mg daily and an extra 250mg on TuThSa.
[2025-05-14 11:23] LABS: Troponin-I High Sensitivity 48.9 ng/L (<3.5-17.0)
--- NOTE | 2025-05-14 18:13 | PC.NURSE ---
Could not scan and save tyelnol due to IT issue with provider being in chart, provider gone for the day. 650 of Tylenol given, this RN attempted to scan and save but could not
[2025-05-15 12:20] LABS: Bacterial Vaginosis PCR NEGATIVE (Negative); Candida Group PCR NOT DETECTED (Not Detect); Candida glab krusei PCR NOT DETECTED (Not Detect); Trichomonas vaginalis PCR NOT DETECTED (Not Detect)
== END 2025-05-14 18:15 | disposition home or self-care (01) ==
PROVIDERS: Nurse Practitioner Family; Emergency Provider Emergency Medicine; PCP Internal Medicine
DX: K57.32 Diverticulitis of large intestine without perforation or abscess without bleeding (principal); R11.10 Vomiting, unspecified; R19.7 Diarrhea, unspecified; Z03.818 Encounter for observation for suspected exposure to other biological agents ruled out; R50.9 Fever, unspecified; R07.9 Chest pain, unspecified; R00.2 Palpitations; R53.83 Other fatigue; R94.31 Abnormal electrocardiogram [ECG] [EKG]; I12.0 Hypertensive chronic kidney disease with stage 5 chronic kidney disease or end stage renal disease; N18.6 End stage renal disease; Z99.2 Dependence on renal dialysis
CPT/HCPCS: 36415; 71046; 74176; 80053; 81515; 83690; 83735; 84484; 84702; 85025; 87637; 87651; 93005; 96361; 96365; 96375; 96376; 99284; 99285; J0696; J1171; J1200

== ENCOUNTER → 2025-05-14 06:43 | Outpatient (BNV) | payer MEDICARE, MEDICAID, SELFPAY | PROVIDERS: Emergency Provider Emergency Medicine; PCP Internal Medicine; Visit Provider Internal Medicine Cardiovascular Disease | DX: R94.31 Abnormal electrocardiogram [ECG] [EKG] (principal); R07.9 Chest pain, unspecified | CPT/HCPCS: 93010 ==